=== PATIENT | male | born 1940 | race Caucasian/White ===

== ENCOUNTER → 2016-06-29 | Outpatient (CLI) | payer MEDICARE ==
[2016-06-29 08:43] LABS: Appearance,Urine Clear (Clear); Bilirubin,Urine Negative (Negative); Glucose,Urine (UA) Negative (Negative); Ketones,Urine Negative (Negative); Leukocyte Esterase,Urine Negative (Negative); Nitrite,Urine Negative (Negative); Protein,Urine Trace (Negative); Specific Gravity,Urine 1.019 (1.001-1.035); UA Billing (MACRO vs. MICRO) CHEM; Urobilinogen,Urine <2.0 mg/dL (<2.0)
[2016-06-29 11:21] LABS: Calcium 9.5 mg/dL (8.4-10.2)
[2016-06-29 11:56] LABS: Creatinine,Urine Random 174.3 mg/dL
== END | disposition home or self-care (01) ==
LOC: LABWHC1 08:12
PROVIDERS: ATTEND Psychiatry & Neurology Neurology
DX: N39.0 Urinary tract infection, site not specified (principal); R31.9 Hematuria, unspecified
CPT/HCPCS: 36415; 80048; 80061; 81003; 82550; 82570; 82607; 83735; 84156; 84439; 84443; 84481; 86780; 87077; 87086; 87186

== ENCOUNTER → 2016-07-09 | Outpatient (CLI) | payer MEDICARE ==
--- NOTE | 2016-07-09 12:11 | CT ---
EXAMINATION TYPE: CT brain wo con DATE OF EXAM: 07/09/2016 12:06 PM COMPARISON: NONE INDICATION: memory loss DLP: 1010.8 mGycm, Automated exposure control for dose reduction was used. CONTRAST: MRI brain 12/16/2009 CT of the brain is performed utilizing 3 mm thick sections through the posterior fossa and 3 mm thick sections through the remaining calvarium. Study is performed within 24 hours of arrival to the hosp [facility]. No abnormal hyperdensity is present to suggest an acute intracranial hemorrhage. No mass lesion is evident. No acute infarcts are evident. There is mild periventricular white matter hypodensity, likely on the basis of chronic white matter ischemic changes. Ventricles and sulci are mildly prominent for the patient age. Minimal mucosal thickening is within the inferior right maxillary sinus. Remaining paranasal sinuses and mastoid air cells are clear. IMPRESSIONS: 1. Atrophy with periventricular white matter ischemic type changes
== END ==
LOC: RADCTMAIN 11:37
PROVIDERS: ATTEND Psychiatry & Neurology Neurology
DX: G31.9 Degenerative disease of nervous system, unspecified (principal)
CPT/HCPCS: 70450

== ENCOUNTER → 2016-10-28 | Outpatient (CLI) | payer MEDICARE ==
[2016-10-28 08:29] LABS: Anion Gap 8 mmol/L; Blood Urea Nitrogen 21 mg/dL (9-20); Calcium 9.4 mg/dL (8.4-10.2); Carbon Dioxide 26 mmol/L (22-30); Chloride 108 mmol/L (98-107); Creatine Kinase 60 U/L (55-170); Glucose 84 mg/dL (74-99); Magnesium 1.9 mg/dL (1.6-2.3); Non-African American GFR(MDRD) 58 (>60 ml/min/1.73 sqM); Phosphorous 3.5 mg/dL (2.5-4.5); Potassium 4.7 mmol/L (3.5-5.1); Sodium 142 mmol/L (137-145); Uric Acid 6.6 mg/dL (3.5-8.5)
--- NOTE | 2016-10-28 09:26 | XR ---
EXAMINATION TYPE: XR lumbosacral spine min 4V DATE OF EXAM ORDERED: 10/28/2016 HISTORY: M51.36,M51.34 Disc disease. COMPARISON: None. FINDINGS: There is a gentle dextroscoliosis. Vertebral body height and alignment are maintained. There is no spondylolysis or spondylolisthesis. T he disc spaces are reasonably well-maintained. There is mild hypertrophic spondylosis at L2-3, L3-4 a nd L4-5. The facets are unremarkable. The pedicles are intact. IMPRESSION: 1. NO ACUTE OSSEOUS LESION. 2. MILD DEGENERATIVE CHANGE.
--- NOTE | 2016-10-28 09:39 | XR ---
EXAMINATION TYPE: XR thoracic spine complete DATE OF EXAM: 10/28/2016 COMPARISON: NONE HISTORY: Disc disease low back pain TECHNIQUE: 3 view thoracic spine FINDINGS: Mild degenerative disc changes within the mid thoracic spine. Alignment is normal. Spondylo sis is present. There are 12 thoracic type vertebral bodies. The pedicles are intact. IMPRESSION: 1. Mild degenerative changes mid thoracic spine.
== END | disposition home or self-care (01) ==
LOC: LABWHC1 07:58
PROVIDERS: ATTEND Internal Medicine
DX: M47.816 Spondylosis without myelopathy or radiculopathy, lumbar region (principal); M47.814 Spondylosis without myelopathy or radiculopathy, thoracic region; R25.2 Cramp and spasm
CPT/HCPCS: 36415; 72072; 72110; 80048; 82550; 83735; 83970; 84100; 84550

== ENCOUNTER → 2016-11-05 | Outpatient (CLI) | payer MEDICARE ==
[2016-11-05 13:30] LABS: % Iron Saturation 24.7 % (20-50)
== END | disposition home or self-care (01) ==
LOC: LABWHC1 12:27
PROVIDERS: ATTEND Internal Medicine
DX: D50.9 Iron deficiency anemia, unspecified (principal); E60 Dietary zinc deficiency
CPT/HCPCS: 36415; 82728; 83540; 83550; 84630

== ENCOUNTER → 2016-12-30 | Outpatient (CLI) | payer MEDICARE ==
[2016-12-30 09:06] LABS: ALT 37 U/L (21-72); AST 25 U/L (17-59); Cholesterol 207 mg/dL (<200); HDL Cholesterol 60 mg/dL (40-60)
== END | disposition home or self-care (01) ==
LOC: LABWHC1 07:55
PROVIDERS: ATTEND Internal Medicine Cardiovascular Disease
DX: E78.2 Mixed hyperlipidemia (principal)
CPT/HCPCS: 36415; 80061; 84450; 84460

== ENCOUNTER → 2017-03-23 | Outpatient (CLI) | payer MEDICARE ==
[2017-03-23 09:02] LABS: Basophils # (A) 0.1 k/uL (0-0.2); Basophils % (A) 1 %; CH 30.9; CHCM 32.8; Eosinophils # (A) 0.1 k/uL (0-0.7); Eosinophils % (A) 1 %; HCT 41.4 % (39.0-53.0); HDW 2.36; HGB 13.4 gm/dL (13.0-17.5); Luc # (Auto) 0.15; Luc % (Auto) 2; Lymphocytes # (A) 1.7 k/uL (1.0-4.8); Lymphocytes % (A) 19 %; MCH 30.7 pg (25.0-35.0); MCHC 32.4 g/dL (31.0-37.0); MCV 94.8 fL (80.0-100.0); Mean Platelet Volume 6.6; Monocytes # (A) 0.7 k/uL (0-1.0); Monocytes % (A) 7 %; Neutrophils # (A) 6.6 k/uL (1.3-7.7); Neutrophils % (A) 71 %; RBC 4.36 m/uL (4.30-5.90); RDW 14.3 % (11.5-15.5); WBC 9.3 k/uL (3.8-10.6); WBC (Perox) 9.47
[2017-03-23 11:45] LABS: ALT 45 U/L (21-72); AST 33 U/L (17-59); Alkaline Phosphatase 90 U/L (38-126); Anion Gap 7 mmol/L; Blood Urea Nitrogen 20 mg/dL (9-20); C Reactive Protein <5.0 mg/L (<10.0); Calcium 9.6 mg/dL (8.4-10.2); Carbon Dioxide 27 mmol/L (22-30); Chloride 105 mmol/L (98-107); Cholesterol 192 mg/dL (<200); Creatine Kinase 70 U/L (55-170); Glucose 80 mg/dL (74-99); HDL Cholesterol 54 mg/dL (40-60); Non-African American GFR(MDRD) 53 (>60 ml/min/1.73 sqM); Potassium 4.7 mmol/L (3.5-5.1); Sodium 139 mmol/L (137-145); Total Bilirubin 0.7 mg/dL (0.2-1.3); Total Protein 6.5 g/dL (6.3-8.2)
[2017-03-23 12:13] LABS: Prostate Specific Antigen 0.49 ng/mL (0.00-4.00)
[2017-03-23 12:28] LABS: Erythrocyte Sedimentation Rate 12 mm/hr (0-15)
== END | disposition home or self-care (01) ==
LOC: LABWHC1 07:33
PROVIDERS: ATTEND Internal Medicine
DX: Z00.00 Encounter for general adult medical examination without abnormal findings (principal); E78.5 Hyperlipidemia, unspecified; E11.65 Type 2 diabetes mellitus with hyperglycemia; I12.9 Hypertensive chronic kidney disease with stage 1 through stage 4 chronic kidney disease, or unspecified chronic kidney disease; E11.22 Type 2 diabetes mellitus with diabetic chronic kidney disease; N18.3 Chronic kidney disease, stage 3 (moderate); N40.0 Benign prostatic hyperplasia without lower urinary tract symptoms; Z85.46 Personal history of malignant neoplasm of prostate
CPT/HCPCS: 36415; 80053; 80061; 82550; 83036; 84153; 84630; 85025; 85652; 86140

== ENCOUNTER 2017-05-31 09:44 | Day surgery (SDC) | payer MEDICARE ==
[2017-05-27 08:55] VITALS: BMI 25.1
[~2017-05-31 09:44] MED LIST: LACTATED RINGERS 1,000 ML IV SCH; LIDOCAINE 1% 20 ML VIAL (10MG/ML) FOR IV START INTRADERMA PRN
[2017-05-31 12:04] VITALS: RESP 18; TEMP 97.9
[2017-05-31 12:05] LABS: Glucose,Whole Blood 77 mg/dL (75-99)
[2017-05-31] MEDS ORDERED: LIDOCAINE 1% INJ 10MG/ML (20 ML MDV) ONE (12:49)
[2017-05-31] MEDS ORDERED: PROPOFOL 10 MG/ML 20 ML VIAL IV ONE (12:49)
[2017-05-31 13:42] VITALS: BP 170/84; PULSE 68
--- NOTE | 2017-06-05 18:15 | P.PCN ---
Date of Procedure: 05/31/17 Procedure(s) Performed: Procedure: Esophagogastroduodenoscopy and biopsy. Preoperative diagnosis: Gastroesophageal reflux and dysphagia. Postoperative diagnosis: 1. Very small sliding hiatal hernia with no obvious esophagitis or complicated reflux disease. 2. Mild antral gastritis. 3. Multiple biopsies obtained from the duodenum, antrum and esophagus. Preparation sedation: Was provided by anesthesia. Brief clinical history: The patient is a 77-year-old male who was evaluated in the office earlier this month for reflux symptoms requiring PPI and H2 blockers. He has been experiencing intermittent dysphagia. This evaluation is to assess for the degree of esophagitis and rule out complicated reflux disease. Procedure: With the patient on his left lateral decubitus position and after informed consent and adequate sedation, I passed the Olympus-GIF 160 video upper endoscope through the cricopharyngeus down the esophagus. GE junction was around 41 cm from the incisors and there was a very small sliding hiatal hernia. The esophagus did not show any erosions, ulcers, strictures or Cadet' s esophagus. The endoscope was then passed into the stomach which was insufflated with air and inspected in detail including the retroflex view in the cardia. There was some mottling and erythema in the antrum consistent with mild gastritis but no ulcers or erosions. Pyloric channel did not show any ulcers. Duodenal bulb, post bulbar area and descending duodenum was essentially within normal limits. Because of his symptoms, I obtained biopsies from the duodenum, antrum and esophagus then the endoscope was withdrawn. The patient tolerated the procedure well. Plan: The patient was reassured. Will await biopsy results. He will follow up in the office as planned and further plans will be made based on his course and biopsy results. We will keep you updated on his progress.
== END 2017-05-31 14:03 | disposition home or self-care (01) ==
LOC: ORWHC2ENDO 09:44
DX: K21.9 Gastro-esophageal reflux disease without esophagitis (principal); K29.70 Gastritis, unspecified, without bleeding; K44.9 Diaphragmatic hernia without obstruction or gangrene; I25.10 Atherosclerotic heart disease of native coronary artery without angina pectoris; I10 Essential (primary) hypertension; Z95.5 Presence of coronary angioplasty implant and graft; J44.9 Chronic obstructive pulmonary disease, unspecified; E78.5 Hyperlipidemia, unspecified; Z79.52 Long term (current) use of systemic steroids; Z79.899 Other long term (current) drug therapy; Z88.1 Allergy status to other antibiotic agents
CPT/HCPCS: 88305; 88342; 43239; J2001; J2704

== ENCOUNTER 2017-08-03 12:42 | Inpatient (IN) | payer MEDICARE ==
[2017-08-03] MEDS ORDERED: SODIUM CHLORIDE 0.9% 1,000 ML IV ONE ×2 (13:19→16:49)
[2017-08-03] MEDS ORDERED: RX INFO: IV CONTRAST WAS GIVEN 1 EACH MISC MISCELLANE PRN (13:19)
[2017-08-03] MEDS ORDERED: ACETAMINOPHEN TAB 500 MG TAB PO STA (13:20)
[2017-08-03] MEDS ORDERED: IBUPROFEN 600 MG TAB PO STA (13:20)
--- NOTE | 2017-08-03 13:22 | ED ---
General Adult HPI - General Chief complaint: Syncope Stated complaint: Abd Pain/Near Syncope Time Seen by Provider: 08/03/17 12:45 Source: patient, EMS, RN notes reviewed Mode of arrival: EMS Limitations: no limitations - History of Present Illness Initial comments: This is a 77-year-old male who presents emergency Department complaining of mid abdominal pain starting at 6:00 this morning he states since then he's vomited and had diarrhea patient states she become very lightheaded and falling twice and passed out once. Patient denies any chest pain palpitations difficulty breathing or shortness of breath. Patient states his abdominal pain comes and goes and it seems to move all over his abdomen it was at the left lower quadrant now is at the right upper quadrant. Patient states she's also had a cholecystectomy. Patient denies a fever but states he was having the chills earlier. Patient denies any dysuria hematuria urinary frequency. - Related Data Home Medications Medication Instructions Recorded Confirmed Aclidinium [place] [Tudorza 1 puff PO BID PRN 05/27/17 08/03/17 Pressair] Albuterol Inhaler [Ventolin Hfa 1 - 2 puff INHALATION Q6HR PRN 05/27/17 08/03/17 Inhaler] Aspirin [Adult Low Dose Aspirin EC] 81 mg PO DAILY@1200 05/27/17 08/03/17 Atorvastatin [Lipitor] 80 mg PO DAILY@1200 05/27/17 08/03/17 Donepezil HCl [Aricept] 5 mg PO DAILY@1200 05/27/17 08/03/17 Fluticasone/Salmeterol [Advair 1 inhalation PO BID PRN 05/27/17 08/03/17 250-50 Diskus] Ipratropium/Albuterol Sulfate 1 puff INHALATION QID PRN 05/27/17 08/03/17 [Combivent Respimat Inhaler] Irbesartan [Avapro] 150 mg PO DAILY@119905/27/17 08/03/17 Metoprolol Tartrate 25 mg PO BID-W/MEALS 05/27/17 08/03/17 Montelukast [Singulair] 10 mg PO HS 05/27/17 08/03/17 Multivitamins, Thera [Multivitamin 1 tab PO W/SUPPER 05/27/17 08/03/17 (formulary)] Theophylline 12 Hour [Silvio-Dur] 300 mg PO BID 05/27/17 08/03/17 predniSONE 5 mg PO BID-W/MEALS 05/27/17 08/03/17 Pantoprazole Sodium [Pantoprazole 40 mg PO BID 08/03/17 08/03/17 Sodium] Allergies Allergy/AdvReac Type Severity Reaction Status Date / Time ciprofloxacin [From Cipro] Allergy Rash/Hives Verified 08/03/17 13:49 Review of Systems ROS Statement: Those systems with pertinent positive or pertinent negative responses have been documented in the HPI. ROS Other: All systems not noted in ROS Statement are negative. Past Medical History Past Medical History: Coronary Artery Disease (CAD), COPD, GERD/Reflux, Hyperlipidemia, Hypertension Additional Past Medical History / Comment(s): dysphagia, states some memory loss History of Any Multi-Drug Resistant Organisms: None Reported Past Surgical History: Cholecystectomy, Heart Catheterization With Stent Additional Past Surgical History / Comment(s): corbin cataracts, EGD Past Anesthesia/Blood Transfusion Reactions: No Reported Reaction Date of Last Stent Placement:: unknown Past Psychological History: No Psychological Hx Reported Smoking Status: Never smoker Past Alcohol Use History: None Reported Past Drug Use History: None Reported - Past Family History Mother Family Medical History: Cancer Father Family Medical History: Cancer General Exam Limitations: no limitations Course Vital Signs 08/03/17 08/03/17 08/03/17 12:46 14:02 14:31 Temperature 100.7 F H Pulse Rate 114 H 114 H Pulse Rate [ 130 H Left Standing Pulse Oximetery ] Pulse Rate [ 122 H Sitting Pulse Oximetery] Pulse Rate [ 115 H Supine Pulse Oximetery] Respiratory 18 18 Rate Blood Pressure 154/70 129/59 Blood Pressure 143/63 [Right Arm Sitting] Blood Pressure 128/71 [Right Arm Standing] Blood Pressure 142/59 [Right Arm Supine] O2 Sat by Pulse 98 98 Oximetry 08/03/17 08/03/17 15:34 16:35 Temperature Pulse Rate 108 H 114 H Pulse Rate [ Left Standing Pulse Oximetery ] Pulse Rate [ Sitting Pulse Oximetery] Pulse Rate [ Supine Pulse Oximetery] Respiratory 19 19 Rate Blood Pressure 115/67 123/60 Blood Pressure [Right Arm Sitting] Blood Pressure [Right Arm Standing] Blood Pressure [Right Arm Supine] O2 Sat by Pulse 98 100 Oximetry Medical Decision Making - Medical Decision Making EKG shows sinus tachycardia at 111 bpm with occasional PVC TX interval is 170 QRS 72 QT interval 308 QTC is 08/12/2017. Patient's EKG shows no ST segment elevation or depression or T wave abnormalities are noted Patient's CAT scan shows some fluid distended small bowel large bowels consistent with diarrhea which the patient has. Patient's lipase is extremely high looks like the patient has pancreatitis. We try to get a sample of stool for culture it look for C. diff that is still pending but we'll admit the patient and obtained on the floor. I spoke with Dr. Griffin and he agreed to admit the patient I wrote admitting orders consult to Dr. Guzman. - Lab Data Result diagrams: 08/03/17 14:48 08/03/17 14:48 Lab Results 08/03/17 08/03/17 08/03/17 Range/Units 13:31 14:48 14:48 WBC 10.0 (3.8-10.6) k/uL RBC 4.65 (4.30-5.90) m/uL Hgb 14.5 (13.0-17.5) gm/dL Hct 43.3 (39.0-53.0) % MCV 93.2 (80.0-100.0) fL MCH 31.2 (25.0-35.0) pg MCHC 33.5 (31.0-37.0) g/dL RDW 12.8 (11.5-15.5) % Plt Count 252 (150-450) k/uL Neutrophils % 88 % Lymphocytes % 6 % Monocytes % 5 % Eosinophils % 1 % Basophils % 0 % Neutrophils # 8.7 H (1.3-7.7) k/uL Lymphocytes # 0.6 L (1.0-4.8) k/uL Monocytes # 0.5 (0-1.0) k/uL Eosinophils # 0.1 (0-0.7) k/uL Basophils # 0.0 (0-0.2) k/uL Sodium 143 (137-145) mmol/L Potassium 4.4 (3.5-5.1) mmol/L Chloride 107 (98-107) mmol/L Carbon Dioxide 21 L (22-30) mmol/L Anion Gap 15 mmol/L BUN 28 H (9-20) mg/dL Creatinine 1.32 H (0.66-1.25) mg/dL Est GFR (CKD-EPI)AfAm 59 (>60 ml/min/1.73 sqM) Est GFR (CKD-EPI)NonAf 51 (>60 ml/min/1.73 sqM) Glucose 80 (74-99) mg/dL Plasma Lactic Acid Lawson 2.6 H* (0.7-2.0) mmol/L Calcium 9.2 (8.4-10.2) mg/dL Total Bilirubin 0.8 (0.2-1.3) mg/dL AST 34 (17-59) U/L ALT 41 (21-72) U/L Alkaline Phosphatase 98 (38-126) U/L Total Creatine Kinase (55-170) U/L CK-MB (CK-2) (0.0-2.4) ng/mL CK-MB (CK-2) Rel Index Troponin I (0.000-0.034) ng/mL Total Protein 6.3 (6.3-8.2) g/dL Albumin 3.7 (3.5-5.0) g/dL Amylase 178 H (30-110) U/L Lipase 1130 H (23-300) U/L 08/03/17 Range/Units 14:48 WBC (3.8-10.6) k/uL RBC (4.30-5.90) m/uL Hgb (13.0-17.5) gm/dL Hct (39.0-53.0) % MCV (80.0-100.0) fL MCH (25.0-35.0) pg MCHC (31.0-37.0) g/dL RDW (11.5-15.5) % Plt Count (150-450) k/uL Neutrophils % % Lymphocytes % % Monocytes % % Eosinophils % % Basophils % % Neutrophils # (1.3-7.7) k/uL Lymphocytes # (1.0-4.8) k/uL Monocytes # (0-1.0) k/uL Eosinophils # (0-0.7) k/uL Basophils # (0-0.2) k/uL Sodium (137-145) mmol/L Potassium (3.5-5.1) mmol/L Chloride (98-107) mmol/L Carbon Dioxide (22-30) mmol/L Anion Gap mmol/L BUN (9-20) mg/dL Creatinine (0.66-1.25) mg/dL Est GFR (CKD-EPI)AfAm (>60 ml/min/1.73 sqM) Est GFR (CKD-EPI)NonAf (>60 ml/min/1.73 sqM) Glucose (74-99) mg/dL Plasma Lactic Acid Lawson (0.7-2.0) mmol/L Calcium (8.4-10.2) mg/dL Total Bilirubin (0.2-1.3) mg/dL AST (17-59) U/L ALT (21-72) U/L Alkaline Phosphatase (38-126) U/L Total Creatine Kinase 97 (55-170) U/L CK-MB (CK-2) 1.9 (0.0-2.4) ng/mL CK-MB (CK-2) Rel Index 2.0 Troponin I <0.012 (0.000-0.034) ng/mL Total Protein (6.3-8.2) g/dL Albumin (3.5-5.0) g/dL Amylase (30-110) U/L Lipase (23-300) U/L Disposition Clinical Impression: Acute diarrhea, Orthostatic syncope, Pancreatitis, Acute vomiting Disposition: ADMITTED IP TO THIS HOSP Referrals: Kevin Griffin MD [Primary Care Provider] - 1-2 days Time of Disposition: 16:47
[2017-08-03 15:08] LABS: Basophils % (A) 0 %; Eosinophils # (A) 0.1 k/uL (0-0.7); Eosinophils % (A) 1 %; HCT 43.3 % (39.0-53.0); HGB 14.5 gm/dL (13.0-17.5); Lymphocytes # (A) 0.6 k/uL (1.0-4.8); Lymphocytes % (A) 6 %; MCH 31.2 pg (25.0-35.0); MCHC 33.5 g/dL (31.0-37.0); MCV 93.2 fL (80.0-100.0); Mean Platelet Volume 6.7; Monocytes # (A) 0.5 k/uL (0-1.0); Monocytes % (A) 5 %; Neutrophils # (A) 8.7 k/uL (1.3-7.7); Neutrophils % (A) 88 %; Platelet Count 252 k/uL (150-450); RBC 4.65 m/uL (4.30-5.90); RDW 12.8 % (11.5-15.5)
[2017-08-03 15:14] LABS: Albumin 3.7 g/dL (3.5-5.0); Calcium 9.2 mg/dL (8.4-10.2); Potassium 4.4 mmol/L (3.5-5.1); Total Bilirubin 0.8 mg/dL (0.2-1.3); Total Protein 6.3 g/dL (6.3-8.2)
[2017-08-03 15:30] LABS: Creatine Kinase 97 U/L (55-170)
[2017-08-03 15:41] LABS: Creatine Kinase MB 1.9 ng/mL (0.0-2.4); Troponin I <0.012 ng/mL (0.000-0.034)
--- NOTE | 2017-08-03 16:14 | CT ---
EXAMINATION TYPE: CT abdomen pelvis w con DATE OF EXAM: 08/03/2017 COMPARISON: NONE HISTORY: Pelvic pain, right upper abdominal pain CT DLP: 1412 mGycm CONTRAST: CT scan of the abdomen and pelvis is performed without Oral Contrast and with IV Contrast, patient in jected with 80 mL of Isovue 370. FINDINGS: LUNG BASES-: No visible nodule. No infiltrate. LIVER/GB: Cholecystectomy clips are in place. Mild intra and extrahepatic biliary ductal dilatation . Calcified granulomas within the liver. No space occupying hepatic lesion. Biliary tree is of fatimah l caliber. PANCREAS: No inflammation. No distinct mass. SPLEEN: No splenic enlargement. No lesion seen. Calcified splenic granulomas. ADRENALS: No nodule. No thickening. KIDNEYS/BLADDER: No hydronephrosis. No nephrolithiasis. Simple cyst midpole left kidney. Urinary bl adder grossly unremarkable. BOWEL: Normal appendix. There is fluid distended small and large bowel. Correlate for enterocolitis a nd diarrhea. Sigmoid diverticulosis without diverticulitis. No free air or abscess. GENITAL ORGANS: Prostate clips are in place. LYMPH NODES: No greater than 1cm abdominal or pelvic lymph nodes are appreciated. AORTA: No significant abnormality. OSSEOUS STRUCTURES: No significant abnormality is seen. OTHER: No significant additional abnormality is seen. IMPRESSION: 1. There is fluid distended small and large bowel. Correlate for enterocolitis and diarrhea.
[2017-08-03] MEDS ORDERED: ONDANSETRON 4 MG/2 ML VIAL IVP PRN (16:50)
[2017-08-03] MEDS ORDERED: IPRATROPIUM 0.5 MG/2.5 ML NEBU INHALATION PRN (17:43)
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
[2017-08-03] MEDS ORDERED: PIPERACILLIN-TAZOBACTAM 3.375 GM in DEXTROSE/WATER 1 50ML.BAG IVPB SCH (19:00)
[2017-08-03] MEDS: metroNIDAZOLE-NS PMX 500 MG in SALINE 1 100ML.BAG IVPB SCH ×2 (19:08→23:37)
--- NOTE | 2017-08-03 19:54 | XR ---
EXAMINATION TYPE: XR chest 2V DATE OF EXAM: 08/03/2017 COMPARISON: 03/17/2011 HISTORY: Dizziness asthma TECHNIQUE: Frontal and lateral views of the chest are obtained. FINDINGS: Heart and mediastinum are normal. Lungs are clear. Diaphragm is normal. Bony thorax is int act. IMPRESSION: Normal chest. No change.
[2017-08-03] MEDS: SYMBICORT 80-4.5 MCG INHALER INHALATION SCH (21:08)
[2017-08-03] MEDS: IPRATROPIUM-ALBUTEROL 3 ML NEB INHALATION PRN (21:08)
[2017-08-04] MEDS: ARTIFICIAL TEARS-HYPROMELLOSE DROPS 15 ML BTL LEFT EYE PRN ×2 (04:33→07:59)
[2017-08-04 04:59] LABS: Appearance,Urine Clear (Clear); Bilirubin,Urine Negative (Negative); Blood,Urine Negative (Negative); Color,Urine Yellow; Glucose,Urine (UA) Negative (Negative); Ketones,Urine 1+ (Negative); Leukocyte Esterase,Urine Negative (Negative); Mucus,Urine Rare /hpf; Nitrite,Urine Negative (Negative); PH, Urine 5.5 (5.0-8.0); Protein,Urine 1+ (Negative); RBC,Urine 2 /hpf (0-5); Squamous Epithelial Cell,Urine <1 /hpf (0-4); Urobilinogen,Urine <2.0 mg/dL (<2.0); WBC,Urine 1 /hpf (0-5)
[2017-08-04 05:00] LABS: Specific Gravity,Urine >1.050 (1.001-1.035)
[2017-08-04] MEDS: metroNIDAZOLE-NS PMX 500 MG in SALINE 1 100ML.BAG IVPB SCH ×3 (06:13→18:18)
[2017-08-04] MEDS: MORPHINE SULFATE/PF 10MG/10ML VL IVP PRN (07:55)
[2017-08-04] MEDS: METOPROLOL TARTRATE 25 MG TAB PO SCH ×2 (08:02→16:54)
[2017-08-04] MEDS: PANTOPRAZOLE 40 MG/10 ML VIAL IVP SCH (08:02)
[2017-08-04] MEDS: IPRATROPIUM-ALBUTEROL 3 ML NEB INHALATION PRN ×4 (08:47→20:48)
[2017-08-04] MEDS: SYMBICORT 80-4.5 MCG INHALER INHALATION SCH ×2 (08:47→20:48)
[2017-08-04 09:14] LABS: Basophils % (A) 1 %; Eosinophils # (A) 0.1 k/uL (0-0.7); Eosinophils % (A) 2 %; HCT 40.7 % (39.0-53.0); HGB 13.9 gm/dL (13.0-17.5); Lymphocytes # (A) 0.9 k/uL (1.0-4.8); Lymphocytes % (A) 14 %; MCH 31.2 pg (25.0-35.0); MCHC 34.2 g/dL (31.0-37.0); MCV 91.5 fL (80.0-100.0); Mean Platelet Volume 6.2; Monocytes # (A) 0.5 k/uL (0-1.0); Monocytes % (A) 8 %; Neutrophils # (A) 4.5 k/uL (1.3-7.7); Neutrophils % (A) 73 %; Platelet Count 276 k/uL (150-450); RBC 4.45 m/uL (4.30-5.90); RDW 12.8 % (11.5-15.5); WBC 6.1 k/uL (3.8-10.6)
[2017-08-04 09:40] LABS: Albumin 2.9 g/dL (3.5-5.0); Calcium 8.7 mg/dL (8.4-10.2); Potassium 4.7 mmol/L (3.5-5.1); Total Bilirubin 0.6 mg/dL (0.2-1.3); Total Protein 5.3 g/dL (6.3-8.2)
--- NOTE | 2017-08-04 10:56 | P.CONS ---
History of Present Illness - Reason for Consult Consult date: 08/04/17 Pancreatitis Requesting physician: Kevin Griffin - History of Present Illness 77-year-old male patient of Drs. Griffin and Megan with a past medical history of CAD PCI stent, COPD, hypertension, hyperlipidemia, chronic dysphagia, GERD, cholecystectomy, memory loss. Admitted with reports of mid to right upper quadrant abdominal pain that started earlier this morning with nonbloody emesis and diarrhea lightheadedness syncope. Family at bedside assisting with history taking. Apparently patient's been treated with broad-spectrum antibiotics in the outpatient setting for months now for intermittent diarrhea. He's had chronic upper abdominal pain for several weeks. He underwent EGD evaluation in May regarding his complaints with findings of a small hiatal hernia and diffuse gastritis. No evidence of peptic ulcer disease. Last colonoscopy screening several years ago. Consult requested for pancreatitis. CT abdomen and pelvis reported fluid distended small and large bowel correlation enterocolitis diarrhea. Hemoglobin 14.5. White count 10. Sodium 143. Potassium 4.4. Lactic acid 2.6 with hydration 1.7. LFTs within normal limits. Lipase 1130. Amylase 178. BUN 28. Creatinine 1.3. Denies hematemesis and acute melena fever or chills however T-max is 100.7. Review of Systems Constitutional: Denies fever, chills, sweats, weight gain, or loss. Memory impairment. HEENT: Negative for migraines, blurred vision or loss, earaches, drainage, tinnitus, oral mucosal lesions, dysphagia, or odynophagia. Cardiac: CAD. Hypertension. Hyperlipidemia. Negative for chest pain, arrhythmias, or palpitation. Respiratory: COPD. Negative for shortness of breath, hemoptysis, cough, or sputum production. Gastrointestinal: See HPI for pertinent findings. Genitourinary: Negative for hematuria, urgency, frequency, polyuria, dysuria, or penile discharge. Musculoskeletal: Negative for muscle aches, swelling, arthritis, and arthralgias. Neurologic: Negative for stroke or TIA. Endocrine: Negative for thyroid problems. Skin: Negative for rash or itching. Psychiatric: Negative history for depression and anxiety Past Medical History Past Medical History: Coronary Artery Disease (CAD), COPD, GERD/Reflux, Hyperlipidemia, Hypertension Additional Past Medical History / Comment(s): dysphagia, states some memory loss History of Any Multi-Drug Resistant Organisms: None Reported Past Surgical History: Cholecystectomy, Heart Catheterization With Stent Additional Past Surgical History / Comment(s): corbin cataracts, EGD Past Anesthesia/Blood Transfusion Reactions: No Reported Reaction Date of Last Stent Placement:: unknown Past Psychological History: No Psychological Hx Reported Additional Psychological History / Comment(s): memory loss Smoking Status: Never smoker Past Alcohol Use History: None Reported Past Drug Use History: None Reported - Past Family History Mother Family Medical History: Cancer Father Family Medical History: Cancer Medications and Allergies Home Medications Medication Instructions Recorded Confirmed Type Aclidinium [place] [Tudorza 1 puff PO BID PRN 05/27/17 08/03/17 History Pressair] Albuterol Inhaler [Ventolin Hfa 1 - 2 puff INHALATION Q6HR PRN 05/27/17 History Inhaler] Aspirin [Adult Low Dose Aspirin EC] 81 mg PO DAILY@1200 05/27/17 08/03/17 History Atorvastatin [Lipitor] 80 mg PO DAILY@1200 05/27/17 08/03/17 History Donepezil HCl [Aricept] 5 mg PO DAILY@1200 05/27/17 08/03/17 History Fluticasone/Salmeterol [Advair 1 inhalation PO BID PRN 05/27/17 08/03/17 History 250-50 Diskus] Ipratropium/Albuterol Sulfate 1 puff INHALATION QID PRN 05/27/17 08/03/17 History [Combivent Respimat Inhaler] Irbesartan [Avapro] 150 mg PO DAILY@1200 05/27/17 08/03/17 History Metoprolol Tartrate 25 mg PO BID-W/MEALS 05/27/17 08/03/17 History Montelukast [Singulair] 10 mg PO HS 05/27/17 08/03/17 History Multivitamins, Thera [Multivitamin 1 tab PO W/SUPPER 05/27/17 08/03/17 History (formulary)] Theophylline 12 Hour [Silvio-Dur] 300 mg PO BID 05/27/17 08/03/17 History predniSONE 5 mg PO BID-W/MEALS 05/27/17 08/03/17 History Pantoprazole Sodium [Pantoprazole 40 mg PO BID 03/28/18 03/28/18 History Sodium] Allergies Allergy/AdvReac Type Severity Reaction Status Date / Time ciprofloxacin [From Cipro] Allergy Rash/Hives Verified 08/03/17 13:49 Physical Exam Vitals: Vital Signs Temp Pulse Pulse Pulse Pulse Pulse Resp 08/04/17 06:28 97.8 F 101 H 20 08/03/17 23:45 98 F 108 H 20 08/03/17 21:25 102 H 08/03/17 21:08 100 08/03/17 18:25 96.8 F L 100 16 08/03/17 17:45 99.4 F 107 H 18 08/03/17 16:35 114 H 19 08/03/17 15:34 108 H 19 08/03/17 14:31 114 H 18 08/03/17 14:02 130 H 122 H 115 H 08/03/17 12:46 100.7 F H 114 H 18 BP BP BP BP Pulse Ox 08/04/17 06:28 145/77 99 08/03/17 23:45 117/58 97 08/03/17 21:25 08/03/17 21:08 08/03/17 18:25 128/63 99 08/03/17 17:45 133/57 95 08/03/17 16:35 123/60 100 08/03/17 15:34 115/67 98 08/03/17 14:31 129/59 98 08/03/17 14:02 143/63 128/71 142/59 08/03/17 12:46 154/70 98 Intake and Output 08/03/17 08/04/17 08/04/17 22:59 06:59 14:59 Intake Total 0 0 Balance 0 0 Intake: Oral 0 0 Other: # Voids 1 1 General appearance: The patient is alert, oriented, in no acute distress. HET: Head is normocephalic and atraumatic. Pupils are equal and reactive. Oropharynx is clear without lesions. Neck: Supple without lymphadenopathy. Trachea midline. Heart: S1 S2. Regular rate and rhythm. Lungs: No crackles or wheezes are heard. Abdomen: Soft, tenderness to the midepigastric right upper quadrant, nondistended with bowel sounds. No peritoneal signs. No palpable organomegaly or masses. Extremities: Normal skin color and turgor. No cyanosis, rash, ulceration, clubbing, or edema. Radial and pedal pulses are 2/4 bilaterally. Neurological: No focal deficits. Strength and sensation are grossly intact. Results CBC & Chem 7: 08/04/17 08:48 08/04/17 08:48 Labs: Abnormal Lab Results - Last 24 Hours (Table) 08/03/17 08/03/17 08/03/17 Range/Units 13:31 14:48 14:48 Neutrophils # 8.7 H (1.3-7.7) k/uL Lymphocytes # 0.6 L (1.0-4.8) k/uL Carbon Dioxide 21 L (22-30) mmol/L BUN 28 H (9-20) mg/dL Creatinine 1.32 H (0.66-1.25) mg/dL Plasma Lactic Acid Lawson 2.6 H* (0.7-2.0) mmol/L Amylase 178 H (30-110) U/L Lipase 1130 H (23-300) U/L Ur Specific [place] (1.001-1.035) Urine Protein (Negative) Urine Ketones (Negative) Urine Mucus (None) /hpf 08/04/17 Range/Units 04:30 Neutrophils # (1.3-7.7) k/uL Lymphocytes # (1.0-4.8) k/uL Carbon Dioxide (22-30) mmol/L BUN (9-20) mg/dL Creatinine (0.66-1.25) mg/dL Plasma Lactic Acid Lawson (0.7-2.0) mmol/L Amylase (30-110) U/L Lipase (23-300) U/L Ur Specific [place] >1.050 H (1.001-1.035) Urine Protein 1+ H (Negative) Urine Ketones 1+ H (Negative) Urine Mucus Rare H (None) /hpf CT scan - abdomen: report reviewed (Dr. Worthington) Assessment and Plan (1) Abdominal pain Narrative/Plan: Multifactorial secondary to acute pancreatitis of unclear etiology as well as possible enteritis possible colitis. Persistent intermittent diarrhea nonbloody for several weeks underlying collagenous colitis cannot be entirely excluded. Current Visit: Yes Status: Acute Code(s): R10.9 - UNSPECIFIED ABDOMINAL PAIN SNOMED Code(s): 68551281 (2) Diarrhea Current Visit: Yes Status: Acute Code(s): R19.7 - DIARRHEA, UNSPECIFIED SNOMED Code(s): 98342749 (3) Pancreatitis Current Visit: Yes Status: Acute Code(s): K85.90 - ACUTE PANCREATITIS WITHOUT NECROSIS OR INFECTION, UNSP SNOMED Code(s): 70373832 Plan: 1. Repeat pancreatic enzymes. Clear liquid diet as tolerated. GI prophylaxis Protonix 40 mg daily. Check triglycerides. Hold NSAIDs; could exacerbate diarrhea. 2. IV Hydration. Stool studies if diarrhea persists. Colonoscopy was discussed and contingent on clinical course. Thank you for this kind referral and the opportunity to participate in the care of your patient. This consultation was discussed with Dr. Worthington. The impression and plan of care have been directed as dictated.
--- NOTE | 2017-08-04 11:06 | XR ---
EXAMINATION TYPE: XR abdomen complete w decub DATE OF EXAM: 08/04/2017 COMPARISON: CT 08/03/2017 HISTORY: 77-year-old male with ileus and diverticulosis, right upper quadrant pain TECHNIQUE: 4 views FINDINGS: Lung bases are clear. Cholecystectomy clips. No evidence for free intraperitoneal air. Medication tablets are noted within the ascending colon. Small bowel loops are dilated measuring up to 4.4 cm on the left and 3.8 cm on the right. Scattered c olonic gas with a colonic air-fluid levels are also present. Calcified granulomas within the spleen. Contrast material collected within the bladder. Brachytherapy seeds in the region of the prostate. IMPRESSION: 1. Overall degree of small bowel dilatation show some increase from 08/03/2017 CT scan, now measuring up to 4.4 cm. Air-fluid levels remain within both small and large bowel and there is persistence of c olonic gas. Findings suggest continued ileus/enteritis rather than small bowel obstruction. Follow-up can be performed. 2. No free air.
--- NOTE | 2017-08-04 12:26 | P.PN ---
Subjective Progress Note Date: 08/04/17 Progress note date of service 08/04/2017. Dictation by Dr. Otoniel Ruelas M.D. [facility]. Patient seen today evaluated [id number]. Vital sign temperature 97.8 pulse rate ranging between 98 and 101. Respiratory rate 20/m nonlabored. Blood pressure 145/77. Mean blood pressure 99. Laboratory: White count 6.1 hemoglobin 13.9 with hematocrit 40.7 and platelet count 276. Electrolytes: Sodium 141 potassium 4.7 chloride 113 and carbon dioxide 15 with the underlying metabolic acidosis. He also has hypoglycemia with the blood sugar 67 his liver function test is normal with AST 35 and a LT 43 and total bili Lamberto 0.6 patient has history of laparoscopic cholecystectomy. His total CK is 97 and troponin on admission was less than 0.012 his total protein drop he is nothing by mouth and except for ice abscess is total protein is 5.3 and albumin is 2.9 and a serum, he lays was yesterday 178 today's 95 lipase was 1130 now to 27 to the normal range. His urine negative. [id number] examination patient is conscious alert oriented he has severe abdominal pain in the right upper quadrant and the cause the colon on the hepatic flexure as well as the ascending colon with the minimal palpation 10 over 10 pain is still on morphine for that controlling the pain he has also other quadrant pain however there is no significant related as the hepatic flexure. Patient did not have a bowel movement since yesterday morning that when he had the rash of diarrhea and frequent loose watery stools and that happened at that time 17 time as he said, we will add the triglyceride 2 his laboratory in the morning and the patient the don't to drink alcohol. And old smoke. And the current examination indicating that the bowel sound is diminished. His computed tomography scan did not show any sign of inflammation of the pancreas at this time as well as [place] drop off his Micronase and lipase does not indicate acute inflammation for over one night only and I am suspicious for: Infarction or obstruction with the diarrhea massive associated with dizziness symptomatic dehydration. Patient also today on the review of the lab found that he had progression on his chronic kidney disease as well as metabolic acidosis. 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 And advised that he should in the future eat in a sitting position 90 meanwhile patient currently and nothing by mouth except ice chips. And the chest x-ray was negative. Neck was supple no JVD no thyromegaly no lymph adenopathy. The chest was increased anteroposterior was mild hyperinflation with a history of asthma, COPD never smoked and associated with interstitial lung disease and he was on a steroid dependent was given by the pulmonary Dr. Gaspar. The abdomen severe tenderness on the: And in the hepatic flexure and the ascending colon as compared with the other sites of the abdomen. And with the underlying 10 over 10 that is considered as an acute abdomen and that we consulted Dr. Carmenza Painter the surgeon for evaluation and treatment. Patient currently has no bowel movement since admission with the associated ileus. Extremities no edema and positive pulses bilateral and symmetrical. Assessment: #1 gastroenteritis with nausea and vomiting and diarrhea. #2 acute C. difficile colitis with the history of treatment of upper respiratory tract infection with Ceftin. However patient did not have no bowel movement since admission and that happened at home a #3 history of connective tissue disease and Raynaud disease . 4 history of hypertension which is sofar controlled #5 metabolic acidosis etiology unclear # 5 renal computerization with decreased GFR and this provided that patient was on 150 mL an hour normal saline. Plan #1 consultation with the surgeon for acute abdomen and the underlying pain 10 over 10 on the right upper quadrant, hepatic flexure, ascending colon. Compared with the other quadrant. His abdominal x-ray series was done today I don't have results however looks like's ileus as well. His next number history of asthma no exacerbation sofar. We will wait for the recommendation and treatment of nephrology Dr. Pawel DERAS spoke with him today with with the patient in the room. I reviewed the note of the PA for gastroenterology, I am not sure that patient has pancreatitis. For the above reasons and YE he had pancreatitis and this also considered as question and what his his symptoms appear in the morning after he slept without any other reasoning for the acute pancreatitis. Acute abdomen is highly considered and will consult the surgeon Dr. Carmenza Painter for evaluation and treatment. Objective - Vital Signs Vital signs: Vital Signs Temp 97.8 F 08/04/17 06:28 Pulse 98 08/04/17 08:58 Resp 20 08/04/17 06:28 BP 145/77 08/04/17 06:28 Pulse Ox 99 08/04/17 06:28 Intake & Output 08/03/17 08/04/17 08/04/17 18:59 06:59 18:59 Intake Total 0 Balance 0 Weight 78.018 kg Intake: Oral 0 Other: # Voids 1 - Labs CBC & Chem 7: 08/04/17 08:48 08/04/17 08:48 Labs: Abnormal Lab Results - Last 24 Hours (Table) 08/03/17 08/03/17 08/03/17 Range/Units 13:31 14:48 14:48 Neutrophils # 8.7 H (1.3-7.7) k/uL Lymphocytes # 0.6 L (1.0-4.8) k/uL Chloride (98-107) mmol/L Carbon Dioxide 21 L (22-30) mmol/L BUN 28 H (9-20) mg/dL Creatinine 1.32 H (0.66-1.25) mg/dL Glucose (74-99) mg/dL Plasma Lactic Acid Lawson 2.6 H* (0.7-2.0) mmol/L Total Protein (6.3-8.2) g/dL Albumin (3.5-5.0) g/dL Amylase 178 H (30-110) U/L Lipase 1130 H (23-300) U/L Ur Specific [place] (1.001-1.035) Urine Protein (Negative) Urine Ketones (Negative) Urine Mucus (None) /hpf 08/04/17 08/04/17 08/04/17 Range/Units 04:30 08:48 08:48 Neutrophils # (1.3-7.7) k/uL Lymphocytes # 0.9 L (1.0-4.8) k/uL Chloride 113 H (98-107) mmol/L Carbon Dioxide 15 L (22-30) mmol/L BUN 30 H (9-20) mg/dL Creatinine 1.51 H (0.66-1.25) mg/dL Glucose 67 L (74-99) mg/dL Plasma Lactic Acid [place] (0.7-2.0) mmol/L Total Protein 5.3 L (6.3-8.2) g/dL Albumin 2.9 L (3.5-5.0) g/dL Amylase (30-110) U/L Lipase (23-300) U/L Ur Specific [place] >1.050 H (1.001-1.035) Urine Protein 1+ H (Negative) Urine Ketones 1+ H (Negative) Urine Mucus Rare H (None) /hpf Microbiology - Last 24 Hours (Table) 08/04/17 04:30 Urine Culture - Preliminary Urine,Clean Catch
--- NOTE | 2017-08-04 12:43 | P.NPCON ---
History of Present Illness - Reason for Consult acute renal failure - History of Present Illness Reason for consultation: Acute kidney injury on chronic kidney disease History of present illness: Patient is a 77-year-old male seen in consultation for acute kidney injury on chronic kidney disease. Patient has chronic kidney disease stage III with baseline creatinine in the range of 1.2-1.4 secondary to nephrosclerosis. His creatinine on admission was 1.32 and is up to 1.5 and today. Patient presented with abdominal pain which is worse in the right upper quadrant. He also had an episode of diarrhea and emesis prior to admission. He underwent CAT scan of the abdomen and pelvis with IV contrast on August 03 which revealed distended small and large bowel with concern for enterocolitis. His lipase was also elevated at 1130 and is down to 227 today. Patient denies history of alcohol use. His lactic acid was elevated at 2.6 for which she did receive IV hydration and is currently maintained on normal saline at 100 mL an hour. Lactic acid level is down to 1.2 today. His bicarb was 21 on admission and is 15 today. He is currently on clear liquid diet only. No further vomiting or diarrhea. Denies history of diabetes. He does admit to taking NSAIDs prior to admission due to a headache. Patient states he sustained a fall which prompted him to come to the hospital. Denies family history of renal disease. Hemodynamically stable. Vital signs are stable. General: The patient appeared well nourished and normally developed. HEENT: Head exam is unremarkable. Neck is without jugular venous distension. LUNGS: Lungs are clear to auscultation and percussion. Breath sounds decreased. HEART: Rate and Rhythm are regular. First and second heart sounds normal. No murmurs, rubs or gallops. ABDOMEN: Bowel sounds present. Right upper quadrant tenderness noted. EXTREMITITES: No clubbing, cyanosis, or edema. Past Medical History Past Medical History: Coronary Artery Disease (CAD), COPD, GERD/Reflux, Hyperlipidemia, Hypertension Additional Past Medical History / Comment(s): dysphagia, states some memory loss History of Any Multi-Drug Resistant Organisms: None Reported Past Surgical History: Cholecystectomy, Heart Catheterization With Stent Additional Past Surgical History / Comment(s): corbin cataracts, EGD Past Anesthesia/Blood Transfusion Reactions: No Reported Reaction Date of Last Stent Placement:: unknown Past Psychological History: No Psychological Hx Reported Additional Psychological History / Comment(s): memory loss Smoking Status: Never smoker Past Alcohol Use History: None Reported Past Drug Use History: None Reported - Past Family History Mother Family Medical History: Cancer Father Family Medical History: Cancer Medications and Allergies Home Medications Medication Instructions Recorded Confirmed Type Aclidinium [place] [Tudorza 1 puff PO BID PRN 05/27/17 08/03/17 History Pressair] Albuterol Inhaler [Ventolin Hfa 1 - 2 puff INHALATION Q6HR PRN 05/27/17 History Inhaler] Aspirin [Adult Low Dose Aspirin EC] 81 mg PO DAILY@1200 05/27/17 08/03/17 History Atorvastatin [Lipitor] 80 mg PO DAILY@1200 05/27/17 08/03/17 History Donepezil HCl [Aricept] 5 mg PO DAILY@1200 05/27/17 08/03/17 History Fluticasone/Salmeterol [Advair 1 inhalation PO BID PRN 05/27/17 08/03/17 History 250-50 Diskus] Ipratropium/Albuterol Sulfate 1 puff INHALATION QID PRN 05/27/17 08/03/17 History [Combivent Respimat Inhaler] Irbesartan [Avapro] 150 mg PO DAILY@1200 05/27/17 08/03/17 History Metoprolol Tartrate 25 mg PO BID-W/MEALS 05/27/17 08/03/17 History Montelukast [Singulair] 10 mg PO HS 05/27/17 08/03/17 History Multivitamins, Thera [Multivitamin 1 tab PO W/SUPPER 05/27/17 08/03/17 History (formulary)] Theophylline 12 Hour [Silvio-Dur] 300 mg PO BID 05/27/17 08/03/17 History predniSONE 5 mg PO BID-W/MEALS 05/27/17 08/03/17 History Pantoprazole Sodium [Pantoprazole 40 mg PO BID 08/03/17 08/03/17 History Sodium] Allergies Allergy/AdvReac Type Severity Reaction Status Date / Time ciprofloxacin [From Cipro] Allergy Rash/Hives Verified 08/03/17 13:49 Physical Exam Vitals: Vital Signs Temp Pulse Pulse Pulse Pulse Pulse Resp 08/04/17 12:29 102 H 08/04/17 12:20 102 H 08/04/17 08:58 98 08/04/17 08:50 98 08/04/17 06:28 97.8 F 101 H 20 08/03/17 23:45 98 F 108 H 20 08/03/17 21:25 102 H 08/03/17 21:08 100 08/03/17 18:25 96.8 F L 100 16 08/03/17 17:45 99.4 F 107 H 18 08/03/17 16:35 114 H 19 08/03/17 15:34 108 H 19 08/03/17 14:31 114 H 18 08/03/17 14:02 130 H 122 H 115 H 08/03/17 12:46 100.7 F H 114 H 18 BP BP BP BP Pulse Ox 08/04/17 12:29 08/04/17 12:20 08/04/17 08:58 08/04/17 08:50 08/04/17 06:28 145/77 99 08/03/17 23:45 117/58 97 08/03/17 21:25 08/03/17 21:08 08/03/17 18:25 128/63 99 08/03/17 17:45 133/57 95 08/03/17 16:35 123/60 100 08/03/17 15:34 115/67 98 08/03/17 14:31 129/59 98 08/03/17 14:02 143/63 128/71 142/59 08/03/17 12:46 154/70 98 Intake and Output 08/03/17 08/04/17 08/04/17 22:59 06:59 14:59 Intake Total 0 0 Balance 0 0 Intake: Oral 0 0 Other: # Voids 1 1 Results - Lab Results Most recent lab results Calcium 8.7 mg/dL (8.4-10.2) 08/04/17 08:48 08/04/17 08:48 08/04/17 08:48 Assessment and Plan Plan: Assessment: #1. Nonoliguric acute kidney injury secondary to ATN secondary to vomiting and diarrhea, further worsened with nonsteroidals. Patient also received IV contrast on August 03. Creatinine up to 1.51 today. #2. Non-anion gap metabolic acidosis secondary to IV fluids. Patient did have lactic acidosis on admission which is now resolved. #3. Lactic acidosis. Improved with IV hydration. Unclear etiology. Questionable bowel source. No evidence of hypotension. #4. Abdominal pain. Possibly related to acute pancreatitis although his lipase levels have come down significantly in 1 day. Also concern for enterocolitis on imaging. Gastroenterology and surgery following. #5. Chronic kidney disease stage III with baseline creatinine in the range of 1.2-1.4. Etiology is likely nephrosclerosis. #6. Hypertension with chronic kidney disease. Controlled. Plan: Discontinue normal saline. Start isotonic sodium bicarbonate drip to be run at 75 mL an hour. Avoid nephrotoxic agents and hypotensive episodes. Discontinue Motrin. Repeat electrolytes in the morning. Continue to monitor renal function closely over the next 48-72 hours to monitor for contrast-induced nephropathy. Patient will need to follow-up as an outpatient for chronic kidney disease care after discharge. Thank you for the consultation. I will continue to follow the patient with you during his hospital stay.
[2017-08-04] MEDS: DEXTROSE 5% IN WATER 1,000 ML with SODIUM BICARB (1 MEQ/ML) 150 ML IV SCH (13:27)
[2017-08-04 14:40] VITALS: BMI 25.4
--- NOTE | 2017-08-04 14:52 | P.GSCN ---
History of Present Illness Consult date: 08/04/17 Reason for Consult: Right side abdominal pain History of present illness: 77-year-old male being seen at the request of the attending for a surgical eval for right side upper quadrant abdominal pain. Patient reports prior to coming into the hospital he had episodes of nausea vomiting incontinent diarrhea frequent stooling for the past several weeks with poor oral intake. Patient stated that he felt dizzy and lightheaded and one episode felt like he could pass out. Additionally patient stated that for several months he has had a difficult time swallowing pills he feels like they get caught with reflux symptoms. Reportedly has been experiencing severe right side mid epigastric pain radiates to the right side interferes with activities of daily living. In the emergency room the lipase was 1130 repeat lipase this morning 227. Amylase on admission 178 this morning 95 AST and ALT are not elevated total bili not elevated white count this morning 6.1 hemoglobin 13.9 nephrology recommendations reviewed patient has a history of chronic kidney disease stage III CAT scan of the abdomen and pelvis obtained showed fluid distended small and large bowel. Correlate for entercolitis and diarrhea no abdominal x-ray done today reviewing the report indicates overall degree of small bowel dilatation some increased from prior computed tomography scan. Findings suggest continue ileus/enteritis rather than a small bowel obstruction. No free air. Additionally the patient reports having no stool since being admitted currently is tolerating a clear liquid diet continues to have persistent right upper quadrant abdominal pain Review of Systems Essentially unremarkable except as mentioned in the present illness Past Medical History Past Medical History: Coronary Artery Disease (CAD), COPD, GERD/Reflux, Hyperlipidemia, Hypertension Additional Past Medical History / Comment(s): dysphagia, states some memory loss History of Any Multi-Drug Resistant Organisms: None Reported Past Surgical History: Cholecystectomy, Heart Catheterization With Stent Additional Past Surgical History / Comment(s): corbin cataracts, EGD Past Anesthesia/Blood Transfusion Reactions: No Reported Reaction Date of Last Stent Placement:: unknown Past Psychological History: No Psychological Hx Reported Additional Psychological History / Comment(s): memory loss Smoking Status: Never smoker Past Alcohol Use History: None Reported Past Drug Use History: None Reported - Past Family History Mother Family Medical History: Cancer Father Family Medical History: Cancer Medications and Allergies Home Medications Medication Instructions Recorded Confirmed Type Aclidinium Doole [Tudorza 1 puff PO BID PRN 05/27/17 08/03/17 History Pressair] Albuterol Inhaler [Ventolin Hfa 1 - 2 puff INHALATION Q6HR PRN 05/27/17 History Inhaler] Aspirin [Adult Low Dose Aspirin EC] 81 mg PO DAILY@1200 05/27/17 08/03/17 History Atorvastatin [Lipitor] 80 mg PO DAILY@1200 05/27/17 08/03/17 History Donepezil HCl [Aricept] 5 mg PO DAILY@1200 05/27/17 08/03/17 History Fluticasone/Salmeterol [Advair 1 inhalation PO BID PRN 05/27/17 08/03/17 History 250-50 Diskus] Ipratropium/Albuterol Sulfate 1 puff INHALATION QID PRN 05/27/17 08/03/17 History [Combivent Respimat Inhaler] Irbesartan [Avapro] 150 mg PO DAILY@1200 05/27/17 08/03/17 History Metoprolol Tartrate 25 mg PO BID-W/MEALS 05/27/17 08/03/17 History Montelukast [Singulair] 10 mg PO HS 05/27/17 08/03/17 History Multivitamins, Thera [Multivitamin 1 tab PO W/SUPPER 05/27/17 08/03/17 History (formulary)] Theophylline 12 Hour [Silvio-Dur] 300 mg PO BID 05/27/17 08/03/17 History predniSONE 5 mg PO BID-W/MEALS 05/27/17 08/03/17 History Pantoprazole Sodium [Pantoprazole 40 mg PO BID 08/03/17 08/03/17 History Sodium] Allergies Allergy/AdvReac Type Severity Reaction Status Date / Time ciprofloxacin [From Cipro] Allergy Rash/Hives Verified 08/03/17 13:49 Surgical - Exam Vital Signs Temp Pulse Resp BP Pulse Ox 100.7 F H 114 H 18 154/70 98 08/03/17 12:46 08/03/17 12:46 08/03/17 12:46 08/03/17 12:46 08/03/17 12:46 GENERAL APPEARANCE: 77-year-old male patient is alert, oriented 3, in no acute distress. Sitting up in bed VITAL SIGNS: Reviewed HEENT: Head is normocephalic and atraumatic. Pupils are equal and reactive. The nares are patent. Oropharynx is clear without lesions. Reports having frequent clear nasal drainage NECK: Supple without lymphadenopathy. Traches midline. HEART: S1, S2. Regular rate and rhythm. Denying chest pain when questioning no murmur LUNGS: No crackles or wheezes are heard. Adequate air movement bilaterally on room air ABDOMEN: Soft, positive tenderness with facial grimacing to palpitation to the right upper quadrant, nondistended with active bowel sounds throughout. No peritoneal signs. No palpable organomegaly or masses. Currently taking a clear liquid diet. No nausea no vomiting no stool since admission EXTREMITIES: Normal skin color and turgor. No cyanosis, rash, ulceration, clubbing or edema. Radial pedal pulses are 2/4 bilaterally. NEUROLOGICAL: No focal deficits. Strength and sensation are grossly intact. Results - Labs 08/04/17 08:48 08/04/17 08:48 Abnormal Lab Results - Last 24 Hours (Table) 08/03/17 08/03/17 08/04/17 Range/Units 14:48 14:48 04:30 Neutrophils # 8.7 H (1.3-7.7) k/uL Lymphocytes # 0.6 L (1.0-4.8) k/uL Chloride (98-107) mmol/L Carbon Dioxide 21 L (22-30) mmol/L BUN 28 H (9-20) mg/dL Creatinine 1.32 H (0.66-1.25) mg/dL Glucose (74-99) mg/dL Total Protein (6.3-8.2) g/dL Albumin (3.5-5.0) g/dL Amylase 178 H (30-110) U/L Lipase 1130 H (23-300) U/L Ur Specific [place] >1.050 H (1.001-1.035) Urine Protein 1+ H (Negative) Urine Ketones 1+ H (Negative) Urine Mucus Rare H (None) /hpf 08/04/17 08/04/17 Range/Units 08:48 08:48 Neutrophils # (1.3-7.7) k/uL Lymphocytes # 0.9 L (1.0-4.8) k/uL Chloride 113 H (98-107) mmol/L Carbon Dioxide 15 L (22-30) mmol/L BUN 30 H (9-20) mg/dL Creatinine 1.51 H (0.66-1.25) mg/dL Glucose 67 L (74-99) mg/dL Total Protein 5.3 L (6.3-8.2) g/dL Albumin 2.9 L (3.5-5.0) g/dL Amylase (30-110) U/L Lipase (23-300) U/L Ur Specific [place] (1.001-1.035) Urine Protein (Negative) Urine Ketones (Negative) Urine Mucus (None) /hpf Microbiology - Last 24 Hours (Table) 08/04/17 04:30 Urine Culture - Preliminary Urine,Clean Catch Diabetes panel 08/03/17 08/04/17 Range/Units 14:48 08:48 Sodium 143 141 (137-145) mmol/L Potassium 4.4 4.7 (3.5-5.1) mmol/L Chloride 107 113 H (98-107) mmol/L Carbon Dioxide 21 L 15 L (22-30) mmol/L BUN 28 H 30 H (9-20) mg/dL Creatinine 1.32 H 1.51 H (0.66-1.25) mg/dL Glucose 80 67 L (74-99) mg/dL Calcium 9.2 8.7 (8.4-10.2) mg/dL AST 34 35 (17-59) U/L ALT 41 43 (21-72) U/L Alkaline Phosphatase 98 76 (38-126) U/L Total Protein 6.3 5.3 L (6.3-8.2) g/dL Albumin 3.7 2.9 L (3.5-5.0) g/dL Calcium panel 08/03/17 08/04/17 Range/Units 14:48 08:48 Calcium 9.2 8.7 (8.4-10.2) mg/dL Albumin 3.7 2.9 L (3.5-5.0) g/dL Pituitary panel 08/03/17 08/04/17 Range/Units 14:48 08:48 Sodium 143 141 (137-145) mmol/L Potassium 4.4 4.7 (3.5-5.1) mmol/L Chloride 107 113 H (98-107) mmol/L Carbon Dioxide 21 L 15 L (22-30) mmol/L BUN 28 H 30 H (9-20) mg/dL Creatinine 1.32 H 1.51 H (0.66-1.25) mg/dL Glucose 80 67 L (74-99) mg/dL Calcium 9.2 8.7 (8.4-10.2) mg/dL Adrenal panel 08/03/17 08/04/17 Range/Units 14:48 08:48 Sodium 143 141 (137-145) mmol/L Potassium 4.4 4.7 (3.5-5.1) mmol/L Chloride 107 113 H (98-107) mmol/L Carbon Dioxide 21 L 15 L (22-30) mmol/L BUN 28 H 30 H (9-20) mg/dL Creatinine 1.32 H 1.51 H (0.66-1.25) mg/dL Glucose 80 67 L (74-99) mg/dL Calcium 9.2 8.7 (8.4-10.2) mg/dL Total Bilirubin 0.8 0.6 (0.2-1.3) mg/dL AST 34 35 (17-59) U/L ALT 41 43 (21-72) U/L Alkaline Phosphatase 98 76 (38-126) U/L Total Protein 6.3 5.3 L (6.3-8.2) g/dL Albumin 3.7 2.9 L (3.5-5.0) g/dL Assessment and Plan Assessment: Impression Present on admission persistent right upper quadrant pain unclear etiology Computed tomography scan abdomen pelvis report reviewed showed fluid distended small or large bowel correlate enterocolitis Present on admission elevated lipase unclear etiology resolved Prior to admission syncopal episode suspect due to dehydration in a patient who reports persistent nausea vomiting frequent stooling poor oral intake History of a prior cholecystectomy recent EGD May 2017 showed small sliding hiatal hernia mild antral gastritis no obvious esophagitis as part of a workup for dysphagia History of nausea vomiting frequent stooling past several weeks Chronic dysphia Plan No evidence of an acute surgical abdomen IV fluid per nephrology's recommendations Obtain stool for C. diff culture Repeat labs in the morning Repeat abdominal x-ray in the morning Continue IV Flagyl 100mg every 6 hours as ordered Pain control DVT and GI prophylaxis Surgical consultation note dictated for dr roma thomas The above impression and plan of care have been discussed and directed by signing physician. Luciana Chang nurse practitioner acting as scribe for signing physician.
[2017-08-04] MEDS: ACETAMINOPHEN TAB 325 MG TAB PO PRN ×2 (16:54→22:28)
[2017-08-05] MEDS: metroNIDAZOLE-NS PMX 500 MG in SALINE 1 100ML.BAG IVPB SCH ×4 (00:03→18:03)
[2017-08-05] MEDS: ACETAMINOPHEN TAB 325 MG TAB PO PRN ×3 (04:31→20:25)
[2017-08-05] MEDS: MORPHINE SULFATE/PF 10MG/10ML VL IVP PRN (04:31)
[2017-08-05] MEDS: DEXTROSE 5% IN WATER 1,000 ML with SODIUM BICARB (1 MEQ/ML) 150 ML IV SCH ×2 (06:36→08:38)
[2017-08-05] MEDS: SYMBICORT 80-4.5 MCG INHALER INHALATION SCH ×2 (07:10→19:12)
--- NOTE | 2017-08-05 08:04 | XR ---
EXAMINATION TYPE: XR abdomen 2V DATE OF EXAM: 08/05/2017 CLINICAL HISTORY: Ileus/diverticulosis with right upper quadrant pain TECHNIQUE: Supine and upright views of the abdomen are obtained. COMPARISON: Abdominal x-ray series from one day earlier. CT abdomen and pelvis from 2 days earlier. FINDINGS: Gas is redemonstrated in nondistended stomach. There is gas seen in slightly prominent smal l bowel loops in the central abdomen with air-fluid levels. There is gas seen in nondistended colon a long the periphery. A few air-fluid levels in the right lateral abdomen remain present. Amount of gas -filled distention is felt improved from improved from abdominal x-ray one day earlier. There are ova l densities consistent with nonabsorbed pills redemonstrated. Change in position is noted. Cholecyste ctomy clips are redemonstrated. There is new patchy left basilar lateral opacity consistent with atel ectasis and/or infiltrate. No pneumoperitoneum is identified. Brachytherapy seeds in prostate gland o verlying pubic symphysis are redemonstrated. There are few scattered pelvic phleboliths. Visualized o sseous structures are intact. IMPRESSION: Overall nonspecific but favor nonobstructive bowel gas pattern. Improvement in number of gas-filled and dilated small bowel loops is felt present. Scattered prominent loops with air-fluid l evels however remain present.
[2017-08-05] MEDS: METOPROLOL TARTRATE 25 MG TAB PO SCH ×3 (08:36→17:48)
[2017-08-05] MEDS: PANTOPRAZOLE 40 MG/10 ML VIAL IVP SCH (08:36)
--- NOTE | 2017-08-05 08:54 | P.PN ---
Subjective Progress Note Date: 08/05/17 The patient is a 77-year-old gentleman who was admitted after an episode of nausea vomiting and explosive diarrhea. He was subsequently noted to have dehydration and is being rehydrated. He complains of a long-time history of midepigastric abdominal discomfort as well as esophageal spasm. He additionally complains of some more recent right upper quadrant abdominal discomfort. Initially on admission his lipase was elevated which has resolved. His white blood cell count is normal. The diarrhea has abated. He is currently tolerating a clear liquid diet. He does continue to have some right upper quadrant abdominal discomfort. Abdominal x-rays today reveal nonspecific nonobstructive bowel gas pattern. Improvement in the number of gas filled and dilated small bowel loops was felt present. Objective - Vital Signs Vital signs: Vital Signs Temp 96.8 F L 08/05/17 07:00 Pulse 99 08/05/17 07:00 Resp 18 08/05/17 07:00 BP 134/70 08/05/17 07:00 Pulse Ox 95 08/05/17 07:00 Intake & Output 08/04/17 08/05/17 08/05/17 18:59 06:59 18:59 Intake Total 100 Balance 100 Weight 78.018 kg Intake: Oral 100 Other: Voiding Method Toilet # Voids 2 1 - Constitutional General appearance: Present: average body habitus - Respiratory Details: Decreased breath sounds at the bases - Cardiovascular Rhythm: regular Heart sounds: normal: S1, S2 - Gastrointestinal Gastrointestinal Comment(s): Tenderness to palpation of the rib cage on the right with some tenderness of the abdomen as well in the right upper quadrant area. The patient is abdomen however is soft without guarding or rebound. Positive bowel sounds General gastrointestinal: Present: soft - Psychiatric Psychiatric: Present: A&O x's 3, appropriate affect - Labs CBC & Chem 7: 08/04/17 08:48 08/04/17 08:48 Labs: Abnormal Lab Results - Last 24 Hours (Table) 08/04/17 08/04/17 Range/Units 08:48 08:48 Lymphocytes # 0.9 L (1.0-4.8) k/uL Chloride 113 H (98-107) mmol/L Carbon Dioxide 15 L (22-30) mmol/L BUN 30 H (9-20) mg/dL Creatinine 1.51 H (0.66-1.25) mg/dL Glucose 67 L (74-99) mg/dL Total Protein 5.3 L (6.3-8.2) g/dL Albumin 2.9 L (3.5-5.0) g/dL Microbiology - Last 24 Hours (Table) 08/03/17 13:31 Blood Culture - Preliminary Blood No Growth after 24 hours 08/04/17 04:30 Urine Culture - Preliminary Urine,Clean Catch - Imaging and Cardiology Abdominal x-ray: report reviewed, image reviewed Assessment and Plan Plan: Impression/plan: 1. Suspect gastroenteritis with nausea vomiting diarrhea and resolving dehydration 2. Possible C. diff colitis 3. History of chronic abdominal pain 4. History of esophageal spasm 5. History of connective tissue disease/rhinitis 6. History of hypertension 7. Renal disease being followed by nephrology 8. Resolution of elevated lipase questionable etiology Plan: 1. Uncertain of the etiology of the right upper quadrant abdominal discomfort. At this time there is no clear surgical cause. I would suggest continued conservative management with colonoscopy considered after resolution of his symptoms. 2. Medical management of medical problems
--- NOTE | 2017-08-05 10:00 | P.PN ---
Subjective patient is seen in follow-up for acute kidney injury. Patient has chronic kidney disease stage III with baseline creatinine in the range of 1.2-1.4. Creatinine was up to 1.5 yesterday. Labs from today are pending at this time. Patient presented with nausea vomiting and abdominal pain. Patient did sustain a fall prior to admission. He admits to pain in the right upper quadrant more specifically in the rib cage. Denies chest pain or shortness of breath. Admits to good urine output. Vital signs are stable. General: The patient appeared well nourished and normally developed. HEENT: Head exam is unremarkable. Neck is without jugular venous distension. LUNGS: Lungs are clear to auscultation and percussion. Breath sounds decreased. HEART: Rate and Rhythm are regular. First and second heart sounds normal. No murmurs, rubs or gallops. ABDOMEN: Abdominal exam reveals normal bowel sounds. Non-tender and non- distended. No evidence of peritonitis. EXTREMITITES: No clubbing, cyanosis, or edema. Objective - Vital Signs Vital signs: Vital Signs Temp 96.8 F L 08/05/17 07:00 Pulse 99 08/05/17 07:00 Resp 18 08/05/17 07:00 BP 134/70 08/05/17 07:00 Pulse Ox 95 08/05/17 07:00 Intake & Output 08/04/17 08/05/17 08/05/17 18:59 06:59 18:59 Intake Total 100 Balance 100 Weight 78.018 kg Intake: Oral 100 Other: Voiding Method Toilet # Voids 2 1 - Labs CBC & Chem 7: 08/04/17 08:48 08/04/17 08:48 Labs: Abnormal Lab Results - Last 24 Hours (Table) 08/04/17 Range/Units 08:48 Chloride 113 H (98-107) mmol/L Carbon Dioxide 15 L (22-30) mmol/L BUN 30 H (9-20) mg/dL Creatinine 1.51 H (0.66-1.25) mg/dL Glucose 67 L (74-99) mg/dL Total Protein 5.3 L (6.3-8.2) g/dL Albumin 2.9 L (3.5-5.0) g/dL Microbiology - Last 24 Hours (Table) 08/03/17 13:31 Blood Culture - Preliminary Blood No Growth after 24 hours 08/04/17 04:30 Urine Culture - Preliminary Urine,Clean Catch Assessment and Plan Plan: Assessment: #1. Nonoliguric acute kidney injury secondary to ATN secondary to vomiting and diarrhea, further worsened with nonsteroidals. Patient also received IV contrast on August 03. Creatinine up to 1.51 as of yesterday. #2. Non-anion gap metabolic acidosis secondary to IV fluids. Patient did have lactic acidosis on admission which is now resolved. #3. Lactic acidosis. Improved with IV hydration. Unclear etiology. Questionable bowel source. No evidence of hypotension. #4. Abdominal pain. Possibly related to acute pancreatitis although his lipase levels have come down significantly in 1 day. Also concern for enterocolitis on imaging. Gastroenterology and surgery following. Also concern for musculoskeletal pain as it's more in his rib cage than in the abdomen. #5. Chronic kidney disease stage III with baseline creatinine in the range of 1.2-1.4. Etiology is likely nephrosclerosis. #6. Hypertension with chronic kidney disease. Controlled. Plan: Maintain isotonic sodium bicarbonate drip to be run at 75 mL an hour. Avoid nephrotoxic agents and hypotensive episodes. Discontinued Motrin. Repeat electrolytes in the morning. Continue to monitor renal function and urine output for contrast-induced nephropathy. Patient will need to follow-up as an outpatient for chronic kidney disease care after discharge. Follow-up a.m. labs.
[2017-08-05 10:49] LABS: Basophils % (A) 0 %; Eosinophils # (A) 0.1 k/uL (0-0.7); Eosinophils % (A) 1 %; HCT 34.8 % (39.0-53.0); HGB 11.5 gm/dL (13.0-17.5); Lymphocytes # (A) 0.8 k/uL (1.0-4.8); Lymphocytes % (A) 12 %; MCH 30.6 pg (25.0-35.0); MCHC 33.2 g/dL (31.0-37.0); MCV 92.3 fL (80.0-100.0); Mean Platelet Volume 6.8; Monocytes # (A) 0.5 k/uL (0-1.0); Monocytes % (A) 7 %; Neutrophils # (A) 5.3 k/uL (1.3-7.7); Neutrophils % (A) 78 %; Platelet Count 233 k/uL (150-450); RBC 3.77 m/uL (4.30-5.90); RDW 12.9 % (11.5-15.5); WBC 6.8 k/uL (3.8-10.6)
[2017-08-05 11:35] LABS: Albumin 2.5 g/dL (3.5-5.0); Calcium 8.2 mg/dL (8.4-10.2); Magnesium 1.7 mg/dL (1.6-2.3); Potassium 3.5 mmol/L (3.5-5.1); Total Bilirubin 0.4 mg/dL (0.2-1.3); Total Protein 4.6 g/dL (6.3-8.2)
[2017-08-05] MEDS: SODIUM CHLORIDE 0.9% 1,000 ML IV SCH (13:32)
--- NOTE | 2017-08-05 13:40 | P.PN ---
Subjective Progress Note Date: 08/05/17 This is dictation progress note date of service 08/05/2017. Dictation by Dr. Suraj Guadalupe [facility]. Patient seen and evaluated [id number] Patient still complained of abdominal pain associated with the right upper quadrant. Seen by the surgery Dr. Carmenza Painter and she addressed in her note that since the medical management only no surgical problem. With the history of hypo-tension probably and fall down secondary to severe diarrhea and dehydration could be the blood flow to the area of the supply of the colon and superior mesenteric could be compromised and causing his symptoms. However patient has ileus as well by the abdominal x-ray series. The etiology is unclear. His pancreatic enzyme is normal, he was seen by gastroenterology and we don't have guideline so far from Dr. Wade with a his pain is continue to be present. The surgical team indicating this is a medical and with no complete resolution of the problem we will be increasing his diet to clear liquid diet also he if he tolerated or he increase his symptoms. His vital signs stable, with a blood pressure is normal controlled. No shortness of breath and he has been on IV fluid addressed by Dr. Dee to nephrology with the adjusting for the bye-bye bicarbonate due to his metabolic acidosis which we don't know about the etiology of that. 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 He able to eat and swallow he has difficulty closing his left eye and he had the drops for that. Neck was supple no JVD no thyromegaly no lymphadenopathy. Trachea midline Chest was clear to auscultation percussion no wheezes nor rhonchi's, Heart was regular sinus rhythm no dysrhythmia. Abdomen he has tenderness on the right upper quadrant, and also mild mild low left lower quadrant discomfort. Patient has no BM since admitted to the hospital prior to that he had severe diarrhea stated 17 time was loose and watery, with the abdominal pain was uncontrollable 10 over 10. Currently the abdominal pain has mildly decreased to 8 or 7/10. The The risks extremities no pedal edema and positive pulses with good with good with a good perfusion. Neurologically patient stable general condition . Assessment #1 acute abdominal pain with ileus #2 severe diarrhea with watery stools extensive, no sample so far as the patient since he arrived to the emergency room has no bowel movement. Underlying C. difficile colitis considered. #3 acute pancreatitis is considered with elevated a mild wheeze and lipase orally for one time without associated previous symptoms as the patient wake up with the abdominal pain and diarrhea he is not alcoholic and he is not a diabetic, and he has previously gallbladder laparoscopic cholecystectomy added to that he has second day his lipase and a Mytelase normal lipase (picture suggestive is in the bowel not in the pancreas admitted to the computed tomography scan of the abdomen indicating normal pancreas. #4 gastroenteritis with the associated with nausea and vomiting. 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 #6 history of hypertension Plan we will obtain tomorrow abdominal x-ray series. And start clear liquid diet and start ambulation as tolerated. Objective - Vital Signs Vital signs: Vital Signs Temp 96.8 F L 08/05/17 07:00 Pulse 99 08/05/17 07:00 Resp 18 08/05/17 07:00 BP 134/70 08/05/17 07:00 Pulse Ox 95 08/05/17 07:00 Intake & Output 08/04/17 08/05/17 08/05/17 18:59 06:59 18:59 Intake Total 100 120 Balance 100 120 Weight 78.018 kg Intake: Oral 100 120 Other: Voiding Method Toilet # Voids 2 1 - Labs CBC & Chem 7: 08/05/17 09:17 08/05/17 09:17 Labs: Abnormal Lab Results - Last 24 Hours (Table) 08/04/17 08/05/17 08/05/17 Range/Units 08:48 09:17 09:17 RBC 3.77 L (4.30-5.90) m/uL Hgb 11.5 L (13.0-17.5) gm/dL Hct 34.8 L (39.0-53.0) % Lymphocytes # 0.8 L (1.0-4.8) k/uL Chloride 113 H (98-107) mmol/L Carbon Dioxide 15 L (22-30) mmol/L BUN 30 H (9-20) mg/dL Creatinine 1.51 H (0.66-1.25) mg/dL Glucose 67 L (74-99) mg/dL Calcium 8.2 L (8.4-10.2) mg/dL Total Protein 5.3 L 4.6 L (6.3-8.2) g/dL Albumin 2.9 L 2.5 L (3.5-5.0) g/dL Microbiology - Last 24 Hours (Table) 08/04/17 04:30 Urine Culture - Preliminary Urine,Clean Catch Gram Neg Bacilli 08/03/17 13:31 Blood Culture - Preliminary Blood No Growth after 24 hours
--- NOTE | 2017-08-05 15:27 | US ---
EXAMINATION TYPE: US abdomen comp/pelvis limited DATE OF EXAM: 08/05/2017 COMPARISON: CT abdomen and pelvis 2 days ago. CLINICAL HISTORY: abd. pain; initially had pancreatitis, diarrhea and vomiting; gallbladder removed EXAM MEASUREMENTS: Liver Length: 13.8 cm Gallbladder Wall: surgically removed CBD: 0.7 cm Spleen: 8.6 cm Right Kidney: 9.6 x 4.9 x 5.7 cm Left Kidney: 10.6 x 6.0 x 4.8 cm Post Void Residual: not assessed on inpatient Patient is on clear liquids and scanned in afternoon. Pancreas: limitedly seen due to overlying bowel gas Liver: small left lobe; multiple small hyperechoic foci especially noted in right lobe Gallbladder: surgically removed CBD: size is wnl post cholecystectomy Spleen: multiple hyperechoic foci imaged Right Kidney: mid cortical cyst is noted = 0.7 x 0.6 x 0.4cm Left Kidney: left renal cyst not seen on US; lobular cortex is noted Upper IVC: wnl Abd Aorta: size is wnl Bladder: wnl Bilateral Jets Seen Yes Visualized pancreas is suboptimally evaluated on images saved due to shadowing from overlying bowel g as, appeared within normal limits on recent CT. Visualized portion of aorta shows no aneurysmal knight e. IVC is seen near hepatic dome. Visualized liver is small in size and heterogeneous in appearance. Gallbladder is surgically absent. Kidneys show no gross hydronephrosis bilaterally. There are calcifi cations scattered throughout the visualized spleen redemonstrated presumed product of old granulomato us disease. Bladder is satisfactorily distended without suspicious mass or wall thickening on ultraso und. Bilateral distal ureter jets are seen. IMPRESSION: No significant new finding seen to account for patient's symptoms of persistent pain.
[2017-08-05] MEDS: ARTIFICIAL TEARS-HYPROMELLOSE DROPS 15 ML BTL LEFT EYE PRN (21:02)
[2017-08-06] MEDS: metroNIDAZOLE-NS PMX 500 MG in SALINE 1 100ML.BAG IVPB SCH ×3 (00:35→12:19)
[2017-08-06] MEDS: SODIUM CHLORIDE 0.9% 1,000 ML IV SCH (02:52)
[2017-08-06] MEDS: SYMBICORT 80-4.5 MCG INHALER INHALATION SCH ×2 (08:06→19:25)
[2017-08-06] MEDS: METOPROLOL TARTRATE 25 MG TAB PO SCH ×2 (08:11→17:45)
[2017-08-06] MEDS: MORPHINE SULFATE/PF 10MG/10ML VL IVP PRN (08:11)
[2017-08-06] MEDS: PANTOPRAZOLE 40 MG/10 ML VIAL IVP SCH (08:12)
[2017-08-06] MEDS: ACETAMINOPHEN TAB 325 MG TAB PO PRN (08:16)
[2017-08-06 08:57] LABS: Basophils % (A) 0 %; Eosinophils # (A) 0.1 k/uL (0-0.7); Eosinophils % (A) 1 %; HCT 37.6 % (39.0-53.0); HGB 13.1 gm/dL (13.0-17.5); Lymphocytes % (A) 12 %; MCHC 34.8 g/dL (31.0-37.0); MCV 89.2 fL (80.0-100.0); Mean Platelet Volume 6.5; Monocytes # (A) 0.4 k/uL (0-1.0); Monocytes % (A) 5 %; Neutrophils # (A) 6.4 k/uL (1.3-7.7); Neutrophils % (A) 80 %; Platelet Count 275 k/uL (150-450); RBC 4.21 m/uL (4.30-5.90); RDW 12.8 % (11.5-15.5)
[2017-08-06 09:04] LABS: Calcium 8.5 mg/dL (8.4-10.2); Potassium 3.9 mmol/L (3.5-5.1)
[2017-08-06] MEDS ORDERED: GLYCERIN ADULT SUPPOSITORY 1 EACH RECTAL STA (13:02)
[2017-08-06] MEDS ORDERED: MONTELUKAST 10 MG TAB PO STA (13:14)
--- NOTE | 2017-08-06 14:08 | P.PN ---
Subjective Progress Note Date: 08/06/17 There is a dictation on progress note date of service 08/[address] dayanara M.D. [facility]. Patient seen and evaluated today [id number] his daughter at bedside. Complaining of the abdominal pain in the right upper quadrant improved gradually however when he pushes hand on his right upper quadrant and remove it fast it caused pain. Consultation with the gastroenterology Dr. Wade, current consultation with surgery Dr. Carmenza Painter. They considered that has medical problem with the underlying gastroenteritis probably enterocolitis as well with the history indicating probability of C. difficile colitis however patient had no BM since admission and the test for C. difficile PCR was not done. Patient has no BM since admission, he had history of acute kidney injury on the top of chronic kidney disease stage III and metabolic acidosis which has been corrected with the nephrology Dr. IBARRA with the IV sodium bicarb and continue hydration. Objective - Vital Signs Vital signs: Vital Signs Temp 98.8 F 08/06/17 06:35 Pulse 96 08/06/17 06:35 Resp 12 08/06/17 06:35 BP 137/76 08/06/17 06:35 Pulse Ox 96 08/06/17 06:35 Intake & Output 08/05/17 08/06/17 08/06/17 18:59 06:59 18:59 Intake Total 360 Balance 360 Intake: Oral 360 Other: # Voids 1 2 # Bowel Movements 0 - Labs CBC & Chem 7: 08/06/17 07:58 08/06/17 07:58 Labs: Abnormal Lab Results - Last 24 Hours (Table) 08/06/17 08/06/17 Range/Units 07:58 07:58 RBC 4.21 L (4.30-5.90) m/uL Hct 37.6 L (39.0-53.0) % Carbon Dioxide 21 L (22-30) mmol/L Glucose 62 L (74-99) mg/dL Microbiology - Last 24 Hours (Table) 08/03/17 13:31 Blood Culture - Preliminary Blood No Growth after 48 hours 08/04/17 04:30 Urine Culture - Preliminary Urine,Clean Catch Gram Neg Bacilli
[2017-08-06] MEDS: ASPIRIN 81 MG PO SCH (14:13)
[2017-08-06] MEDS: predniSONE 5 MG TAB PO SCH (14:13)
--- NOTE | 2017-08-06 14:22 | P.PN ---
Objective - Vital Signs Vital signs: Vital Signs Temp 98.8 F 08/06/17 06:35 Pulse 96 08/06/17 06:35 Resp 12 08/06/17 06:35 BP 137/76 08/06/17 06:35 Pulse Ox 96 08/06/17 06:35 Intake & Output 08/05/17 08/06/17 08/06/17 18:59 06:59 18:59 Intake Total 360 Balance 360 Intake: Oral 360 Other: # Voids 1 2 # Bowel Movements 0 - Labs CBC & Chem 7: 08/06/17 07:58 08/06/17 07:58 Labs: Abnormal Lab Results - Last 24 Hours (Table) 08/06/17 08/06/17 Range/Units 07:58 07:58 RBC 4.21 L (4.30-5.90) m/uL Hct 37.6 L (39.0-53.0) % Carbon Dioxide 21 L (22-30) mmol/L Glucose 62 L (74-99) mg/dL Microbiology - Last 24 Hours (Table) 08/03/17 13:31 Blood Culture - Preliminary Blood No Growth after 48 hours
--- NOTE | 2017-08-06 15:20 | P.PN ---
Progress Note - Text Progress Note Date: 08/06/17 Patient seen and evaluated. He is ambulating frequently in the hallways. He is tolerating regular diet. No abdominal pain. Labs reviewed. Patient may be discharged home from a surgical standpoint.
--- NOTE | 2017-08-06 17:44 | P.PN ---
Subjective Progress Note Date: 08/06/17 The patient is a 77-year-old gentleman admitted for acute onset nausea and vomiting including pancreatitis and abdominal pain. Since hospitalization, symptoms have completely resolved. He is ambulating frequently in the hallways. He is tolerating regular diet. No abdominal pain. Objective - Vital Signs Vital signs: Vital Signs Temp 96.2 F L 08/06/17 14:57 Pulse 84 08/06/17 14:57 Resp 18 08/06/17 14:57 BP 121/67 08/06/17 14:57 Pulse Ox 97 08/06/17 14:57 Intake & Output 08/05/17 08/06/17 08/06/17 18:59 06:59 18:59 Intake Total 360 Balance 360 Intake: Oral 360 Other: # Voids 1 2 # Bowel Movements 0 - Exam GENERAL: Well developed and in no acute distress. Pleasant. HEENT: No sclera icterus. Extraocular movements grossly intact. Moist buccal mucosa. Head is atraumatic, normocephalic. Hears conversational speech. No nasal drainage. NECK: Supple without lymphadenopathy. CHEST: Non-labored respirations and equal bilateral excursions. CARDIOVASCULAR: Regular rate and rhythm. Palpable 2+ radial pulses. ABDOMEN: Soft, nontender. Nondistended. MUSCULOSKELETAL: No clubbing, cyanosis or edema. NEUROLOGIC: No focal or lateralizing signs. PSYCH: Appropriate affect. Alert and oriented to person, place and time. SKIN: Good skin turgor. Well perfused. - Labs CBC & Chem 7: 08/06/17 07:58 08/06/17 07:58 Labs: Abnormal Lab Results - Last 24 Hours (Table) 08/06/17 08/06/17 Range/Units 07:58 07:58 RBC 4.21 L (4.30-5.90) m/uL Hct 37.6 L (39.0-53.0) % Carbon Dioxide 21 L (22-30) mmol/L Glucose 62 L (74-99) mg/dL Microbiology - Last 24 Hours (Table) 08/03/17 13:31 Blood Culture - Preliminary Blood No Growth after 48 hours Assessment and Plan (1) Abdominal pain Current Visit: Yes Status: Acute Code(s): R10.9 - UNSPECIFIED ABDOMINAL PAIN SNOMED Code(s): 39418002 (2) Acute vomiting Current Visit: Yes Status: Acute Code(s): R11.10 - VOMITING, UNSPECIFIED SNOMED Code(s): 85241435 (3) Pancreatitis Current Visit: Yes Status: Acute Code(s): K85.90 - ACUTE PANCREATITIS WITHOUT NECROSIS OR INFECTION, UNSP SNOMED Code(s): 44854853 Plan: 1. Labs reviewed and normalized. 2. Patient may be discharged home from a surgical standpoint. I'm rounding on behalf of Dr. Lu
[2017-08-06] MEDS: LOSARTAN 25 MG TAB PO SCH ×2 (20:20→20:24)
[2017-08-06] MEDS: HEPARIN SODIUM,PORCINE 5,000 UNIT/ML 1 ML VIAL SQ SCH (20:20)
[2017-08-06 23:16] VITALS: RESP 16
[2017-08-07 05:44] VITALS: BP 121/68; TEMP 97.5
[2017-08-07] MEDS ORDERED: PANTOPRAZOLE 40 MG TABLET PO SCH (07:30)
[2017-08-07] MEDS: SYMBICORT 80-4.5 MCG INHALER INHALATION SCH (07:33)
[2017-08-07] MEDS ORDERED: MORPHINE SULF 5MG/10ML VL IVP PRN (07:44)
[2017-08-07] MEDS: LOSARTAN 25 MG TAB PO SCH (08:51)
[2017-08-07] MEDS: ASPIRIN 81 MG PO SCH (08:51)
[2017-08-07] MEDS: METOPROLOL TARTRATE 25 MG TAB PO SCH (08:52)
[2017-08-07] MEDS: HEPARIN SODIUM,PORCINE 5,000 UNIT/ML 1 ML VIAL SQ SCH (08:52)
[2017-08-07] MEDS: predniSONE 5 MG TAB PO SCH (08:52)
[2017-08-07 08:56] VITALS: PULSE 115
[2017-08-07] MEDS ORDERED: ATORVASTATIN 80 MG TAB PO SCH (09:00)
[2017-08-07] MEDS ORDERED: THEOPHYLLINE 24 HOUR 200 MG CAP.ER.24H PO SCH (09:00)
[2017-08-07] MEDS ORDERED: SULFAMETHOX-TMP 400-80MG 1 EACH TAB PO SCH (13:00)
--- NOTE | 2017-08-07 13:50 | P.DS ---
Providers Date of admission: 08/03/17 16:49 Discharge summary date of service 08/07/17. Final diagnoses: #1 acute diarrhea associated with severe dehydration#2 acute gastroenteritis viral #3 acute enterocolitis associated with C. difficile could not ruled out completely as patient could not produce diarrhea in the hospital and the test for C. difficile was not done. #4 ileus associated with abdominal pain severe with grade 10 over 10 and 8-9/10 which is resolved. #5 acute kidney injury secondary to severe dehydration/prerenal resolved. #6 underlying mild metabolic acidosis. 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 #8 Raynaud disease affected his hands and his feet with exposure to cold. #9 orthostatic hypotension secondary to dehydration. #10 essential hypertension controlled. # 10 UTI Serratia marcescens by the culture sensitive to Bactrim SS twice a day for 3 days course. 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 #11 abnormal lipase and amylase on admission ER corrected on the subsequent days to normal within normal computed tomography scan, acute pancreatitis has been ruled out with a history of laparoscopic cholecystitis, no diabetes, advised when he wakes up in a.m. with diarrhea then resolved no alcohol intake. Presentation in the emergency room: Severe abdominal pain 10 over 10 associated with tenderness on the right upper quadrant. And lower left quadrant however the pain is generalized as well. Next Patient admitted to the floor consultation with gastroenterology as well as consultation with Dr. Ethel Kilgore. Hospital course: Patient continued to have severe abdominal pain, we thought with the severe diarrhea 17 time with watery stools no blood was normal color Consultation with gastroenterology as well as surgery obtained Computed tomography scan was done in the emergency room and that they thought that because one time elevation of the mild nasal lipase is a pancreatitis which I did disagree with that as well as the surgeon Dr. Ethel Kilgore. The urine culture done in the emergency room however we have the result today and found to be Serratia marcescens and the best treatment out of his ALLERGY is Bactrim SS with respect to his underlying chronic kidney disease. 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 And patient recover. We advanced his diet gradually and resume his home medication, and ambulate as tolerated. Patient able to handle the fluid was clear liquids followed by healthy heart diet and felt much better. On discharge: His vital signs stable, abdominal pain has been resolved almost completely able to ambulate without dizziness. We discontinued already the IV fluid as well as the Flagyl, patient has only small BM which was solid. As he feeling much better and stable the examination: HEENT negative Neck was supple no JVD. No lymph node. Chest was clear to auscultation and percussion Heart was regular sinus rhythm. Abdomen soft positive bowel sound with a deep palpitation no significant abdominal pain in the 4 quadrants. No suprapubic tenderness Extremities no edema and positive pulses Neurologically stable warfarin 4 extremities able to ambulate answering the questions appropriately his daughter at bedside. Assessment: Patient stable general condition with resolved his acute problem Plan: 1 because of his urinary tract infection with the Serratia marcescens S we'll start him on Bactrim SS1 tablet every 12 hours for 3 days, continue the installing the tear artificial tear because of the closure of his left eye with the dry eyes due to his previous Bradley's palsy. #2 continue home medication. #3 hold on Aricept until seen in the office number for decrease his steroid the prednisone to 5 mg every morning only. Follow-up: #1 patient should follow-up with Dr. Lozano/Dr. Wade gastroenterology in 1 week. #2. They need the surgeon Dr. Ethel Kilgore has been seeing him in the hospital. #3 I will see the patient in 2 weeks as being out of town if he need immediate attention Dr. Edgar Ortiz will be covering me. Attending physician: Kevin Griffin Consults: 08/03/17 16:49 Consult Physician Urgent Consulting Provider: Randy Guzman Consult Reason/Comments: Pancreatitis Do you want consulting provider notified?: Yes 08/04/17 11:20 Consult Physician Routine Consulting Provider: Cordell Dee Consult Reason/Comments: decreasing renal function Do you want consulting provider notified?: Yes Consult Physician Urgent Consulting Provider: Meghana Lu Consult Reason/Comments: right side abdominal pain Do you want consulting provider notified?: Yes Primary care physician: Kevin Griffin Plan - Discharge Summary Discharge Rx Participant: Yes New Discharge Prescriptions: New Artificial Tears-Hypromellose [Artificial Tear Drops] 1 drops LEFT EYE QID PRN 90 Days #1 bottle PRN Reason: Dry Eye(S) Atorvastatin [Lipitor] 80 mg PO DAILY tab predniSONE 5 mg PO DAILY tab Sulfamethox-Tmp 400-80Mg [Bactrim SS 400-80 mg] 1 each PO BID 3 Days #6 tab Continue Fluticasone/Salmeterol [Advair 250-50 Diskus] 1 inhalation PO BID PRN PRN Reason: Shortness Of Breath Albuterol Inhaler [Ventolin Hfa Inhaler] 1 - 2 puff INHALATION Q6HR PRN PRN Reason: Shortness Of Breath Aclidinium Inlet [Tudorza Pressair] 1 puff PO BID PRN PRN Reason: Shortness Of Breath Montelukast [Singulair] 10 mg PO HS Metoprolol Tartrate 25 mg PO BID-W/MEALS Irbesartan [Avapro] 150 mg PO DAILY@1200 Ipratropium/Albuterol Sulfate [Combivent Respimat Inhaler] 1 puff INHALATION QID PRN PRN Reason: Shortness Of Breath Theophylline 12 Hour [Silvio-Dur] 300 mg PO BID Atorvastatin [Lipitor] 80 mg PO DAILY@1200 Multivitamins, Thera [Multivitamin (formulary)] 1 tab PO W/SUPPER Aspirin [Adult Low Dose Aspirin EC] 81 mg PO DAILY@1200 Pantoprazole Sodium 40 mg PO BID Discontinued predniSONE 5 mg PO BID-W/MEALS Donepezil HCl [Aricept] 5 mg PO DAILY@1200 Discharge Medication List Aclidinium Inlet [Tudorza Pressair] 1 puff PO BID PRN 05/27/17 [History] Albuterol Inhaler [Ventolin Hfa Inhaler] 1 - 2 puff INHALATION Q6HR PRN [History] Aspirin [Adult Low Dose Aspirin EC] 81 mg PO DAILY@1200 05/27/17 [History] Atorvastatin [Lipitor] 80 mg PO DAILY@1200 05/27/17 [History] Fluticasone/Salmeterol [Advair 250-50 Diskus] 1 inhalation PO BID PRN 05/27/17 [ History] Ipratropium/Albuterol Sulfate [Combivent Respimat Inhaler] 1 puff INHALATION QID PRN 05/27/17 [History] Irbesartan [Avapro] 150 mg PO DAILY@1200 05/27/17 [History] Metoprolol Tartrate 25 mg PO BID-W/MEALS 05/27/17 [History] Montelukast [Singulair] 10 mg PO HS 05/27/17 [History] Multivitamins, Thera [Multivitamin (formulary)] 1 tab PO W/SUPPER 05/27/17 [ History] Theophylline 12 Hour [Silvio-Dur] 300 mg PO BID 05/27/17 [History] Pantoprazole Sodium 40 mg PO BID 08/03/17 [History] Artificial Tears-Hypromellose [Artificial Tear Drops] 1 drops LEFT EYE QID PRN 90 Days #1 bottle 08/07/17 [Rx] Atorvastatin [Lipitor] 80 mg PO DAILY tab 08/07/17 [Rx] Sulfamethox-Tmp 400-80Mg [Bactrim SS 400-80 mg] 1 each PO BID 3 Days #6 tab 05/26 [Rx] predniSONE 5 mg PO DAILY tab 08/07/17 [Rx] Follow up Appointment(s)/Referral(s): Evelyn Worthington MD [STAFF PHYSICIAN] - 1 Week Kevin Griffin MD [Primary Care Provider] - 2 Weeks Discharge Disposition: HOME SELF-CARE
== END 2017-08-07 14:40 | disposition home or self-care (01) | DRG 371 ==
LOC: EC 12:42 → 4MS4W 16:49
PROVIDERS: ADMIT Internal Medicine; ATTEND Internal Medicine
DX: A04.72 Enterocolitis due to Clostridium difficile, not specified as recurrent (principal); N17.0 Acute kidney failure with tubular necrosis; E87.2 Acidosis; E86.0 Dehydration; K56.7 Ileus, unspecified; J44.9 Chronic obstructive pulmonary disease, unspecified; K57.92 Diverticulitis of intestine, part unspecified, without perforation or abscess without bleeding; N39.0 Urinary tract infection, site not specified; F03.90 Unspecified dementia, unspecified severity, without behavioral disturbance, psychotic disturbance, mood disturbance, and anxiety; A08.4 Viral intestinal infection, unspecified; E78.5 Hyperlipidemia, unspecified; G51.0 Bell's palsy; H04.123 Dry eye syndrome of bilateral lacrimal glands; I12.9 Hypertensive chronic kidney disease with stage 1 through stage 4 chronic kidney disease, or unspecified chronic kidney disease; I25.10 Atherosclerotic heart disease of native coronary artery without angina pectoris; I49.3 Ventricular premature depolarization; I73.00 Raynaud's syndrome without gangrene; I95.1 Orthostatic hypotension; J31.0 Chronic rhinitis; K21.9 Gastro-esophageal reflux disease without esophagitis; K22.4 Dyskinesia of esophagus; N18.3 Chronic kidney disease, stage 3 (moderate); B96.89 Other specified bacterial agents as the cause of diseases classified elsewhere; W19.XXXA Unspecified fall, initial encounter; Z79.52 Long term (current) use of systemic steroids; Z79.82 Long term (current) use of aspirin; Z79.899 Other long term (current) drug therapy; Z90.49 Acquired absence of other specified parts of digestive tract; Z95.5 Presence of coronary angioplasty implant and graft; Z98.42 Cataract extraction status, left eye; Z98.41 Cataract extraction status, right eye; Z88.1 Allergy status to other antibiotic agents; E16.2 Hypoglycemia, unspecified
CPT/HCPCS: 36415; 71046; 74019; 74021; 74177; 76700; 76857; 80048; 80053; 81001; 82150; 82550; 82553; 83605; 83690; 83735; 84478; 84484; 85025; 87040; 87077; 87086; 87186; 94640; 96360; 96361; 99285

== ENCOUNTER → 2017-08-26 | Outpatient (CLI) | payer MEDICARE ==
--- NOTE | 2017-08-26 17:52 | XR ---
EXAMINATION TYPE: XR ribs RT DATE OF EXAM: 08/26/2017 COMPARISON: NONE HISTORY: Right-sided rib pain TECHNIQUE: 4 views FINDINGS: I see no pleural effusion or pneumothorax. Right lung is clear of infiltrate. There are nondisplaced fractures of the right anterior 10th ninth and eighth ribs. IMPRESSION: Multiple lower anterior right rib fractures.
== END | disposition home or self-care (01) ==
LOC: RADXRMAIN 16:52
PROVIDERS: ATTEND Internal Medicine
DX: S22.41XA Multiple fractures of ribs, right side, initial encounter for closed fracture (principal); R07.81 Pleurodynia

== ENCOUNTER → 2017-10-14 | Outpatient (CLI) | payer MEDICARE ==
--- NOTE | 2017-10-14 17:50 | US ---
EXAMINATION TYPE: US abdomen complete DATE OF EXAM: 10/14/2017 COMPARISON: US & CT CLINICAL HISTORY: K85.80 Acute pancreatitis w/o infection. ABD pain, GB removed EXAM MEASUREMENTS: Liver Length: 15.7 cm CBD: 0.4 cm Spleen: 7.9 cm Right Kidney: 9.9 x 5.3 x 4.7 cm Left Kidney: 10.0 x 5.3 x 4.1 cm Difficult scan, pt scanned mostly intercostally Pancreas: Body wnl, head and tail gassed out, 3mm duct visualized Liver: Difficult to visualize, Visualized portions appeared wnl Gallbladder: Surgically absent Evidence for sonographic Major's sign: No CBD: wnl Spleen: Multiple granulomas Right Kidney: wnl, lower pole gassed out Left Kidney: Hypoechoic lesion upper pole= 1.0 x 1.0 x 1.0 cm Upper IVC: wnl Abd Aorta: wnl IMPRESSION: There is 1 cm cortical cyst in the upper pole left kidney. No dilated ducts. No evidence of renal obstruction. No ascites.
== END | disposition home or self-care (01) ==
LOC: RADUSMAIN 16:38
PROVIDERS: ATTEND Internal Medicine
DX: N28.1 Cyst of kidney, acquired (principal); K85.80 Other acute pancreatitis without necrosis or infection
CPT/HCPCS: 76700

== ENCOUNTER → 2017-10-26 | Outpatient (CLI) | payer MEDICARE ==
--- NOTE | 2017-10-26 12:59 | FL ---
MODIFIED SWALLOW / DEGLUTITION STUDY DATE OF EXAM: 10/26/2017 CLINICAL HISTORY: 77-year-old male with Dysphagia. Sensation of acid reflux coming out through the no se and with pain and sensation of food sticking in the chest. TECHNIQUE: Deglutition study is performed utilizing thin liquid barium, honey and nectar thick liqui d barium, barium thick applesauce, and barium coated cracker. Total fluoroscopy time: 1 minute 46 seconds. Total images: None, real-time fluoroscopy support was provided to speech pathology. COMPARISON: None. FINDINGS: The oral and pharyngeal phases show satisfactory initiation and propagation with all modalities teste d. Normal mastication is seen with solid modalities tested. There is no evidence of penetration or aspiration with any modality tested. No nasopharyngeal reflux is identified. There is very mild cerv ical spondylosis causing minimal posterior impressions onto the upper cervical esophagus and hypophar ynx. No cricopharyngeal hypertrophy is seen. No significant pharyngeal residue was appreciated. IMPRESSION: Functional swallow. Please refer to speech therapist notes for further details if necessary. Given th e sensation of food sticking in the chest and report of acid reflux, a conventional esophagram can be considered.
== END | disposition home or self-care (01) ==
LOC: RADFLMAIN 11:27
PROVIDERS: ATTEND Internal Medicine
DX: R13.10 Dysphagia, unspecified (principal)
CPT/HCPCS: 74230

== ENCOUNTER → 2017-11-07 | Outpatient (CLI) | payer MEDICARE ==
--- NOTE | 2017-11-07 12:29 | US ---
EXAMINATION TYPE: US venous doppler duplex LE BI DATE OF EXAM: 11/07/2017 12:10 PM COMPARISON: NONE CLINICAL HISTORY: 77-year-old male M79.662 Pain in Left Leg R22.42 Swelling in Rt. Pain and swelli ng bilateral legs SIDE PERFORMED: Bilateral TECHNIQUE: The lower extremity deep venous system is examined utilizing real time linear array sonog caitlin with graded compression, doppler sonography and color-flow sonography. FINDINGS: VESSELS IMAGED: External Iliac Vein (EIV) Common Femoral Vein Deep Femoral Vein Greater Saphenous Vein * Femoral Vein Popliteal Vein Small Saphenous Vein * Proximal Calf Veins (* superficial vessels) Right Leg: Negative for DVT Left Leg: Negative for DVT IMPRESSION: No evidence for DVT within the bilateral lower extremities imaged from the groin to the upper calves.
== END | disposition home or self-care (01) ==
LOC: RADUSWWP 11:37
PROVIDERS: ATTEND Internal Medicine
DX: M79.662 Pain in left lower leg (principal); M79.661 Pain in right lower leg; R22.43 Localized swelling, mass and lump, lower limb, bilateral; Z88.1 Allergy status to other antibiotic agents; Z88.2 Allergy status to sulfonamides; Z88.8 Allergy status to other drugs, medicaments and biological substances
CPT/HCPCS: 93970

== ENCOUNTER → 2017-11-11 | Outpatient (CLI) | payer MEDICARE ==
[2017-11-11 11:16] LABS: Basophils # (A) 0.1 k/uL (0-0.2); Basophils % (A) 1 %; Eosinophils # (A) 0.9 k/uL (0-0.7); Eosinophils % (A) 12 %; HCT 36.7 % (39.0-53.0); HGB 12.2 gm/dL (13.0-17.5); Lymphocytes # (A) 1.5 k/uL (1.0-4.8); Lymphocytes % (A) 21 %; MCH 30.1 pg (25.0-35.0); MCHC 33.4 g/dL (31.0-37.0); MCV 90.2 fL (80.0-100.0); Mean Platelet Volume 5.9; Monocytes # (A) 0.6 k/uL (0-1.0); Monocytes % (A) 8 %; Neutrophils # (A) 3.9 k/uL (1.3-7.7); Neutrophils % (A) 55 %; Platelet Count 374 k/uL (150-450); RBC 4.07 m/uL (4.30-5.90); RDW 13.1 % (11.5-15.5); WBC 7.2 k/uL (3.8-10.6)
[2017-11-11 11:50] LABS: Albumin 3.5 g/dL (3.5-5.0); Calcium 9.2 mg/dL (8.4-10.2); Potassium 4.3 mmol/L (3.5-5.1); Total Bilirubin 0.4 mg/dL (0.2-1.3)
[2017-11-11 12:17] LABS: PSA Annual Screen 0.4 ng/mL (0.00-4.00)
[2017-11-11 12:40] LABS: Erythrocyte Sedimentation Rate 22 mm/hr (0-15)
== END | disposition home or self-care (01) ==
LOC: LABWHC1 10:38
PROVIDERS: ATTEND Internal Medicine
DX: D64.9 Anemia, unspecified (principal); E55.9 Vitamin D deficiency, unspecified; I82.409 Acute embolism and thrombosis of unspecified deep veins of unspecified lower extremity; M35.9 Systemic involvement of connective tissue, unspecified
CPT/HCPCS: 86255; 86160 ×2; 85379; 86162; 80053; 85652; 86235; 82550; 85025; 86140; 84165; 82306; 86038; 86225; 86334; 86335; 36415; G0103

== ENCOUNTER → 2017-11-16 | Outpatient (CLI) | payer MEDICARE ==
--- NOTE | 2017-11-16 11:22 | FL ---
EXAMINATION: Cervical and Thoracic Esophagram DATE OF EXAM: 11/16/2017 CLINICAL INDICATION: 77-year-old male dysphagia, food sticking in esophagus especially in the morning . Patient reports feeling acid reflux only occurring at night closing his throat in the morning. COMPARISON: Correlation modified barium swallow 10/26/2017. Total Fluoroscopy Time: 1 min 49 seconds Total images: 29 FINDINGS: On the first 2 swallows, there is cathie moderate aspiration with aspirated barium seen extending down into the right lower lobe bronchus. This elicited the cough reflex which the patient reports happens often especially while drinking liquids. The hypopharyngeal anatomy is preserved. The cervical and thoracic portions have a normal course and caliber with very mild tertiary peristals is. The mucosa is normal and no persistent filling defect is encountered. There is a small sliding hiatal hernia. Gastroesophageal reflux could not be elicited during this pro cedure. IMPRESSION: 1. Moderate aspiration down into the right lower lobe bronchus. This elicited the cough reflex which the patient reports happens often especially when drinking liquids. Despite the negative dynamic swal low study on 10/26/2017, consider repeat referral to speech pathology to determine if any protective m aneuvers may help this patient. 2. Small sliding hiatal hernia. Gastroesophageal reflux could not be elicited during the course of th is exam. 3. The patient insists that gastroesophageal reflux occurs only at night. If indicated, endoscopy cou ld be used to assess for any secondary inflammatory changes in the esophagus or hypopharynx related t o chronic reflux.
== END | disposition home or self-care (01) ==
LOC: RADFLWHC 09:48
PROVIDERS: ATTEND Internal Medicine
DX: K44.9 Diaphragmatic hernia without obstruction or gangrene (principal); R05 Cough; Z88.1 Allergy status to other antibiotic agents; Z88.2 Allergy status to sulfonamides; Z88.3 Allergy status to other anti-infective agents; Z88.8 Allergy status to other drugs, medicaments and biological substances
CPT/HCPCS: 74220

== ENCOUNTER 2017-12-07 16:47 | Emergency (ER) | payer OTHER, MEDICARE ==
[2017-12-07 16:52] VITALS: BP 140/78; PULSE 75; RESP 20; TEMP 98
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
== END 2017-12-07 17:18 | disposition home or self-care (01) ==
LOC: EC 16:47
DX: Z04.1 Encounter for examination and observation following transport accident (principal); I25.10 Atherosclerotic heart disease of native coronary artery without angina pectoris; J44.9 Chronic obstructive pulmonary disease, unspecified; K21.9 Gastro-esophageal reflux disease without esophagitis; E78.5 Hyperlipidemia, unspecified; I10 Essential (primary) hypertension; I25.2 Old myocardial infarction; Z85.46 Personal history of malignant neoplasm of prostate; Z95.5 Presence of coronary angioplasty implant and graft; Z79.82 Long term (current) use of aspirin; Z79.899 Other long term (current) drug therapy; Z88.1 Allergy status to other antibiotic agents; V48.5XXA Car driver injured in noncollision transport accident in traffic accident, initial encounter; Y92.093 Driveway of other non-institutional residence as the place of occurrence of the external cause
CPT/HCPCS: 99283

== ENCOUNTER → 2017-12-27 | Outpatient (CLI) | payer MEDICARE ==
[2017-12-27 09:51] LABS: Basophils % (A) 1 %; Eosinophils % (A) 1 %; HCT 38.6 % (39.0-53.0); HGB 12.8 gm/dL (13.0-17.5); Lymphocytes % (A) 12 %; MCH 29.4 pg (25.0-35.0); MCHC 33.2 g/dL (31.0-37.0); MCV 88.3 fL (80.0-100.0); Mean Platelet Volume 5.8; Monocytes # (A) 0.4 k/uL (0-1.0); Monocytes % (A) 5 %; Neutrophils % (A) 82 %; Platelet Count 338 k/uL (150-450); RBC 4.37 m/uL (4.30-5.90); RDW 12.6 % (11.5-15.5); WBC 8.5 k/uL (3.8-10.6)
--- NOTE | 2017-12-27 09:51 | XR ---
EXAMINATION TYPE: XR chest 2V DATE OF EXAM: 12/27/2017 COMPARISON: Chest x-ray August 03, 2017 HISTORY: Bronchitis and cough. TECHNIQUE: Frontal and lateral views of the chest are obtained. FINDINGS: There is suggestion of new faint airspace opacity left lung base silhouetting inferior asp ect left heart border also suspicious on lateral view worrisome for developing lingular infiltrate. Background chronic parenchymal change is redemonstrated. Right lung appears clear. No pleural effusio n or pneumothorax is identified bilaterally. The cardiac silhouette size is within normal limits. T he osseous structures are intact. IMPRESSION: Chronic minimal changes with suspicion for developing lingular acute infiltrate.
== END | disposition home or self-care (01) ==
LOC: LABWHC1 09:03
PROVIDERS: ATTEND Internal Medicine
DX: R91.8 Other nonspecific abnormal finding of lung field (principal)
CPT/HCPCS: 36415; 71046; 85025

== ENCOUNTER 2017-12-30 16:25 | Emergency (ER) | payer MEDICARE ==
[2017-12-30 16:34] VITALS: BP 113/55; PULSE 86; RESP 18; TEMP 98.3
[2017-12-30] MEDS ORDERED: LIDOCAINE 1% INJ 10MG/ML (20 ML MDV) SQ ONE (17:08)
[2017-12-30] MEDS ORDERED: DIPH,PERTUS(ACELL)TETVAC-LF 0.5 ML VIAL IM ONE (17:08)
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
== END 2017-12-30 17:58 | disposition home or self-care (01) ==
LOC: EC 16:25
DX: S51.812A Laceration without foreign body of left forearm, initial encounter (principal); J44.9 Chronic obstructive pulmonary disease, unspecified; I10 Essential (primary) hypertension; I25.10 Atherosclerotic heart disease of native coronary artery without angina pectoris; K21.9 Gastro-esophageal reflux disease without esophagitis; Z79.01 Long term (current) use of anticoagulants; Z79.82 Long term (current) use of aspirin; Z79.899 Other long term (current) drug therapy; Z23 Encounter for immunization; Z88.1 Allergy status to other antibiotic agents; W30.89XA Contact with other specified agricultural machinery, initial encounter; Y93.89 Activity, other specified
CPT/HCPCS: 90715; 99282; 12002; 90471; J2001

== ENCOUNTER → 2018-07-21 | Outpatient (CLI) | payer MEDICARE ==
[2018-07-21 08:19] LABS: Basophils # (A) 0.1 k/uL (0-0.2); Basophils % (A) 1 %; Eosinophils # (A) 0.6 k/uL (0-0.7); Eosinophils % (A) 7 %; HCT 37.5 % (39.0-53.0); HGB 12.7 gm/dL (13.0-17.5); Lymphocytes # (A) 2.3 k/uL (1.0-4.8); Lymphocytes % (A) 25 %; MCH 30.9 pg (25.0-35.0); MCHC 33.8 g/dL (31.0-37.0); MCV 91.6 fL (80.0-100.0); Mean Platelet Volume 5.7; Monocytes # (A) 0.7 k/uL (0-1.0); Monocytes % (A) 8 %; Neutrophils # (A) 5.3 k/uL (1.3-7.7); Neutrophils % (A) 58 %; Platelet Count 329 k/uL (150-450); RBC 4.09 m/uL (4.30-5.90); RDW 13.8 % (11.5-15.5); WBC 9.2 k/uL (3.8-10.6)
[2018-07-21 09:28] LABS: Erythrocyte Sedimentation Rate 8 mm/hr (0-15)
[2018-07-21 12:10] LABS: Thyroid Peroxidase Antibodies <28.0 U/mL (0.0-60.0)
[2018-07-21 12:40] LABS: Creatine Kinase 84 U/L (35-257)
[2018-07-21 12:41] LABS: ALT 26 U/L (10-49); AST 29 U/L (14-35); C Reactive Protein <0.4 mg/dL (0.0-0.8); Cholesterol 181 mg/dL (0-200); LDL Cholesterol,Calculated 100.8 mg/dL (0.0-131.0)
== END | disposition home or self-care (01) ==
LOC: LABWHC1 07:35
PROVIDERS: ATTEND Internal Medicine
DX: I12.9 Hypertensive chronic kidney disease with stage 1 through stage 4 chronic kidney disease, or unspecified chronic kidney disease (principal); N18.3 Chronic kidney disease, stage 3 (moderate); E78.5 Hyperlipidemia, unspecified; E03.9 Hypothyroidism, unspecified; C61 Malignant neoplasm of prostate
CPT/HCPCS: 36415; 80061; 82272; 82550; 84439; 84443; 84450; 84460; 85025; 85652; 86140; 86376; 86800

== ENCOUNTER → 2018-08-23 | Outpatient (CLI) | payer MEDICARE ==
[2018-08-23 17:48] LABS: T4, Free (Free Thyroxine) 1.3 ng/dL (0.80-1.80)
== END ==
LOC: LABWHC1 09:20
PROVIDERS: ATTEND Internal Medicine
DX: E03.9 Hypothyroidism, unspecified (principal); J45.909 Unspecified asthma, uncomplicated; E87.8 Other disorders of electrolyte and fluid balance, not elsewhere classified
CPT/HCPCS: 36415; 84439; 84443

== ENCOUNTER → 2018-10-26 | Outpatient (CLI) | payer MEDICARE ==
[2018-10-26 16:06] LABS: African American GFR (CKD) 50.2 (60.0-200.0); Anion Gap 7.9 mmol/L (4.00-12.00); BUN/Creat Ratio 16.67 Ratio (12.00-20.00); Calcium 8.9 mg/dL (8.7-10.3); Carbon Dioxide 25.1 mmol/L (21.6-31.8); Magnesium 1.9 mg/dL (1.5-2.4); Potassium 4.2 mmol/L (3.5-5.5)
== END | disposition home or self-care (01) ==
LOC: LABWHC1 07:50
PROVIDERS: ATTEND Internal Medicine
DX: E87.8 Other disorders of electrolyte and fluid balance, not elsewhere classified (principal); M62.838 Other muscle spasm
CPT/HCPCS: 36415; 80048; 83735

== ENCOUNTER → 2019-05-03 | Outpatient (CLI) | payer MEDICARE ==
[2019-05-03 08:54] LABS: Basophils # (A) 0.1 k/uL (0-0.2); Basophils % (A) 1 %; Eosinophils # (A) 0.2 k/uL (0-0.7); Eosinophils % (A) 2 %; HCT 38.4 % (39.0-53.0); HGB 12.9 gm/dL (13.0-17.5); Lymphocytes # (A) 2.2 k/uL (1.0-4.8); Lymphocytes % (A) 21 %; MCHC 33.7 g/dL (31.0-37.0); MCV 92.2 fL (80.0-100.0); Mean Platelet Volume 6.5; Monocytes # (A) 0.7 k/uL (0-1.0); Monocytes % (A) 7 %; Neutrophils # (A) 7.2 k/uL (1.3-7.7); Neutrophils % (A) 68 %; Platelet Count 320 k/uL (150-450); RBC 4.17 m/uL (4.30-5.90); RDW 12.9 % (11.5-15.5); WBC 10.6 k/uL (3.8-10.6)
[2019-05-03 09:45] LABS: Erythrocyte Sedimentation Rate 11 mm/hr (0-15)
[2019-05-03 16:21] LABS: ALT 24 U/L (10-49); AST 27 U/L (14-35); African American GFR (CKD) 49.9 (60.0-200.0); Albumin/Globulin Ratio 2.56 (1.60-3.17); Alkaline Phosphatase 80 U/L (41-126); BUN/Creat Ratio 13.33 Ratio (12.00-20.00); C Reactive Protein <0.4 mg/dL (0.0-0.8); Carbon Dioxide 27.9 mmol/L (21.6-31.8); Chloride 105 mmol/L (96-109); Chol/HDL Ratio 2.44; Cholesterol 166 mg/dL (0-200); Creatine Kinase 64 U/L (35-257); Globulin 1.6 g/dL (1.6-3.3); Glucose 79 mg/dL (70-110); LDL Cholesterol,Calculated 77.2 mg/dL (0.0-131.0); Magnesium 1.8 mg/dL (1.5-2.4); Potassium 4.1 mmol/L (3.5-5.5); Sodium 140 mmol/L (135-145); Total Bilirubin 0.4 mg/dL (0.3-1.2); Total Protein 5.7 g/dL (6.2-8.2)
[2019-05-03 17:57] LABS: Creatinine,Urine Random 133.6 mg/dL
[2019-05-03 18:04] LABS: Total Protein,Urine Random 10.2 mg/dL (0.0-13.5)
== END | disposition home or self-care (01) ==
LOC: LABWHC1 07:48
PROVIDERS: ATTEND Internal Medicine
DX: N18.3 Chronic kidney disease, stage 3 (moderate) (principal); C61 Malignant neoplasm of prostate; I10 Essential (primary) hypertension; E78.5 Hyperlipidemia, unspecified; E03.9 Hypothyroidism, unspecified; E55.9 Vitamin D deficiency, unspecified
CPT/HCPCS: 36415; 80053; 80061; 82306; 82550; 82570; 83735; 84100; 84153; 84156; 84439; 84443; 85025; 85652; 86140

== ENCOUNTER 2019-11-22 01:24 | Inpatient (IN) | payer MEDICARE ==
[2019-11-22] MEDS ORDERED: MORPHINE SULFATE 2 MG/ML SYRINGE IVP STA (01:54)
[2019-11-22] MEDS ORDERED: SODIUM CHLORIDE 0.9% 500 ML 500 ML IV STA (01:54)
[2019-11-22] MEDS ORDERED: ONDANSETRON 4 MG/2 ML VIAL IVP STA (01:54)
[2019-11-22 02:11] LABS: Basophils # (A) 0.1 k/uL (0-0.2); Basophils % (A) 0 %; Eosinophils # (A) 0.1 k/uL (0-0.7); Eosinophils % (A) 1 %; HCT 42.6 % (39.0-53.0); HGB 14.2 gm/dL (13.0-17.5); Lymphocytes # (A) 1.7 k/uL (1.0-4.8); Lymphocytes % (A) 14 %; MCH 30.5 pg (25.0-35.0); MCHC 33.2 g/dL (31.0-37.0); MCV 91.9 fL (80.0-100.0); Mean Platelet Volume 6.5; Monocytes # (A) 0.5 k/uL (0-1.0); Monocytes % (A) 4 %; Neutrophils # (A) 9.8 k/uL (1.3-7.7); Neutrophils % (A) 79 %; Platelet Count 353 k/uL (150-450); RBC 4.64 m/uL (4.30-5.90); RDW 14.2 % (11.5-15.5); WBC 12.4 k/uL (3.8-10.6)
--- NOTE | 2019-11-22 02:17 | ED ---
Abdominal Pain HPI - General Chief Complaint: Abdominal Pain Stated Complaint: Abdominal Pain Time Seen by Provider: 11/22/19 01:49 Source: patient Mode of arrival: ambulatory Limitations: no limitations - History of Present Illness Initial Comments: 79-year-old male patient presents to the emergency department today for evaluation of upper abdominal pain. Patient states pain started earlier today. States he did become nauseated and did have one episode of vomiting this evening. Patient states that the pain is quite severe and is worse when he lies down. He states he has been able to eat and drink today. States he did have 2 small bowel movements. He is urinating without difficulty. He denies any fever or chills. Denies history of abdominal surgery. States he has had radiation for prostate cancer. Patient denies any recent rash, cough, shortness of breath, chest pain, back pain, numbness, tingling, dizziness, weakness, hematuria, dys uria, urinary urgency, urinary frequency, headache, visual changes, or any other complaints. - Related Data Home Medications Medication Instructions Recorded Confirmed Aclidinium [place] [Tudorza 1 puff PO BID PRN 05/27/17 08/03/17 Pressair] Albuterol Inhaler (Mhu) [Ventolin 1 - 2 puff INHALATION Q6HR PRN 05/27/17 08/03/17 Hfa Inhaler (Mhu)] Aspirin [Adult Low Dose Aspirin EC] 81 mg PO DAILY@1200 05/27/17 08/03/17 Atorvastatin [Lipitor] 80 mg PO DAILY@1200 05/27/17 08/03/17 Fluticasone/Salmeterol [Advair 1 inhalation PO BID PRN 05/27/17 08/03/17 250-50 Diskus] Ipratropium/Albuterol Sulfate 1 puff INHALATION QID PRN 05/27/17 08/03/17 [Combivent Respimat Inhaler] Irbesartan [Avapro] 150 mg PO DAILY@1200 05/27/17 08/03/17 Metoprolol Tartrate 25 mg PO BID-W/MEALS 05/27/17 08/03/17 Montelukast [Singulair] 10 mg PO HS 05/27/17 08/03/17 Multivitamins, Thera [Multivitamin 1 tab PO W/SUPPER 05/27/17 08/03/17 (formulary)] Theophylline 12 Hour [Silvio-Dur] 300 mg PO BID 05/27/17 08/03/17 Pantoprazole Sodium 40 mg PO BID 08/03/17 08/03/17 Previous Rx's Medication Instructions Recorded Artificial Tears-Hypromellose 1 drops LEFT EYE QID PRN 90 Days 08/07/17 [Artificial Tear Drops] #1 bottle Atorvastatin [Lipitor] 80 mg PO DAILY tab 08/07/17 Sulfamethox-Tmp 400-80Mg [Bactrim 1 each PO BID 3 Days #6 tab 08/07/17 SS 400-80 mg] predniSONE 5 mg PO DAILY tab 08/07/17 Allergies Allergy/AdvReac Type Severity Reaction Status Date / Time ciprofloxacin [From Cipro] Allergy Rash/Hives Verified 11/22/19 01:47 Review of Systems ROS Statement: Those systems with pertinent positive or pertinent negative responses have been documented in the HPI. ROS Other: All systems not noted in ROS Statement are negative. Past Medical History Past Medical History: Coronary Artery Disease (CAD), COPD, GERD/Reflux, Hyperlipidemia, Hypertension Additional Past Medical History / Comment(s): dysphagia, states some memory loss History of Any Multi-Drug Resistant Organisms: None Reported Past Surgical History: Cholecystectomy, Heart Catheterization With Stent Additional Past Surgical History / Comment(s): corbin cataracts, EGD Past Anesthesia/Blood Transfusion Reactions: No Reported Reaction Date of Last Stent Placement:: unknown Past Psychological History: No Psychological Hx Reported Smoking Status: Never smoker Past Alcohol Use History: None Reported Past Drug Use History: None Reported - Past Family History Mother Family Medical History: Cancer Father Family Medical History: Cancer General Exam Limitations: no limitations General appearance: alert, in no apparent distress, other (This is a well- developed, well-nourished elderly male patient in no acute distress. Vital signs upon presentation are temperature 97.6F, pulse 82, respirations 18, blood pressure 159/87, pulse ox 99% on room air.) Eye exam: Present: normal appearance, PERRL, EOMI. Absent: scleral icterus, conjunctival injection, periorbital swelling ENT exam: Present: normal exam, normal oropharynx, mucous membranes moist Respiratory exam: Present: normal lung sounds bilaterally. Absent: respiratory distress, wheezes, rales, rhonchi, stridor Cardiovascular Exam: Present: regular rate, normal rhythm, normal heart sounds. Absent: systolic murmur, diastolic murmur, rubs, gallop, clicks GI/Abdominal exam: Present: soft, tenderness (Right upper quadrant left upper quadrant tenderness), normal bowel sounds. Absent: distended, guarding, rebound, rigid Neurological exam: Present: alert, oriented X3, CN II-XII intact Psychiatric exam: Present: normal affect, normal mood Skin exam: Present: warm, dry, intact, normal color. Absent: rash Course Vital Signs 11/22/19 01:42 Temperature 97.6 F Pulse Rate 82 Respiratory 18 Rate Blood Pressure 159/87 O2 Sat by Pulse 99 Oximetry Medical Decision Making - Medical Decision Making 79-year-old male patient presents to the emergency department today for evaluation of upper abdominal pain and vomiting. Physical examination did reveal upper abdominal tenderness. He has normal vital signs. Labs reviewed and did reveal elevated lactic acid at 2.6. CT abdomen and pelvis was obtained and shows evidence for possible partial small bowel obstruction versus ileus. Patient will be admitted to the hospital placed on bowel rest. Nausea medications will be provided. I did discuss findings and results with the patient, he is agreeable. - Lab Data Result diagrams: 11/22/19 02:05 11/22/19 02:05 Lab Results 11/22/19 11/22/19 11/22/19 Range/Units 02:05 02:05 02:05 WBC 12.4 H (3.8-10.6) k/uL RBC 4.64 (4.30-5.90) m/uL Hgb 14.2 (13.0-17.5) gm/dL Hct 42.6 (39.0-53.0) % MCV 91.9 (80.0-100.0) fL MCH 30.5 (25.0-35.0) pg MCHC 33.2 (31.0-37.0) g/dL RDW 14.2 (11.5-15.5) % Plt Count 353 (150-450) k/uL Neutrophils % 79 % Lymphocytes % 14 % Monocytes % 4 % Eosinophils % 1 % Basophils % 0 % Neutrophils # 9.8 H (1.3-7.7) k/uL Lymphocytes # 1.7 (1.0-4.8) k/uL Monocytes # 0.5 (0-1.0) k/uL Eosinophils # 0.1 (0-0.7) k/uL Basophils # 0.1 (0-0.2) k/uL PT 9.4 (9.0-12.0) sec INR 0.9 (<1.2) APTT 19.4 L (22.0-30.0) sec Sodium 135 L (137-145) mmol/L Potassium 4.8 (3.5-5.1) mmol/L Chloride 104 (98-107) mmol/L Carbon Dioxide 23 (22-30) mmol/L Anion Gap 8 mmol/L BUN 21 H (9-20) mg/dL Creatinine 1.42 H (0.66-1.25) mg/dL Est GFR (CKD-EPI)AfAm 53 (>60 ml/min/1.73 sqM) Est GFR (CKD-EPI)NonAf 46 (>60 ml/min/1.73 sqM) Glucose 112 H (74-99) mg/dL Plasma Lactic Acid Lawson (0.7-2.0) mmol/L Calcium 9.7 (8.4-10.2) mg/dL Total Bilirubin 0.7 (0.2-1.3) mg/dL AST 32 (17-59) U/L ALT 22 (4-49) U/L Alkaline Phosphatase 89 (38-126) U/L Total Protein 7.2 (6.3-8.2) g/dL Albumin 4.5 (3.5-5.0) g/dL Amylase 159 H (30-110) U/L Lipase 543 H (23-300) U/L 11/22/19 Range/Units 02:05 WBC (3.8-10.6) k/uL RBC (4.30-5.90) m/uL Hgb (13.0-17.5) gm/dL Hct (39.0-53.0) % MCV (80.0-100.0) fL MCH (25.0-35.0) pg MCHC (31.0-37.0) g/dL RDW (11.5-15.5) % Plt Count (150-450) k/uL Neutrophils % % Lymphocytes % % Monocytes % % Eosinophils % % Basophils % % Neutrophils # (1.3-7.7) k/uL Lymphocytes # (1.0-4.8) k/uL Monocytes # (0-1.0) k/uL Eosinophils # (0-0.7) k/uL Basophils # (0-0.2) k/uL PT (9.0-12.0) sec INR (<1.2) APTT (22.0-30.0) sec Sodium (137-145) mmol/L Potassium (3.5-5.1) mmol/L Chloride (98-107) mmol/L Carbon Dioxide (22-30) mmol/L Anion Gap mmol/L BUN (9-20) mg/dL Creatinine (0.66-1.25) mg/dL Est GFR (CKD-EPI)AfAm (>60 ml/min/1.73 sqM) Est GFR (CKD-EPI)NonAf (>60 ml/min/1.73 sqM) Glucose (74-99) mg/dL Plasma Lactic Acid Lwason 2.6 H* (0.7-2.0) mmol/L Calcium (8.4-10.2) mg/dL Total Bilirubin (0.2-1.3) mg/dL AST (17-59) U/L ALT (4-49) U/L Alkaline Phosphatase (38-126) U/L Total Protein (6.3-8.2) g/dL Albumin (3.5-5.0) g/dL Amylase (30-110) U/L Lipase (23-300) U/L - Radiology Data Radiology results: report reviewed, image reviewed CT abdomen and pelvis with contrast was obtained. Report was reviewed in its entirety. Impression by Dr. Garrett shows some dilated small bowel loops which are increased compared to old computed tomography scan and suggestive of partial mechanical obstruction or localized ileus. Moderate sigmoid diverticulosis without diverticulitis. Disposition Clinical Impression: Partial small bowel obstruction Disposition: ADMITTED IP TO THIS [facility] Condition: Serious Referrals: Kevin Griffin MD [Primary Care Provider] - 1-2 days Decision to Admit Reason: Admit from EC Decision Date: 11/22/19 Decision Time: 03:01
[2019-11-22 02:21] LABS: Albumin 4.5 g/dL (3.5-5.0); Calcium 9.7 mg/dL (8.4-10.2); Total Bilirubin 0.7 mg/dL (0.2-1.3); Total Protein 7.2 g/dL (6.3-8.2)
[2019-11-22 02:22] LABS: Potassium 4.8 mmol/L (3.5-5.1)
[2019-11-22 02:34] LABS: INR 0.9 (<1.2)
[2019-11-22 02:35] LABS: Partial Thromboplastin Time 19.4 sec (22.0-30.0); Prothrombin Time 9.4 sec (9.0-12.0)
[2019-11-22] MEDS ORDERED: SODIUM CHLORIDE 0.9% 500 ML 500 ML IV ONE (02:44)
--- NOTE | 2019-11-22 02:57 | CT ---
EXAMINATION TYPE: CT abdomen pelvis w con DATE OF EXAM: 11/22/2019 COMPARISON: 08/03/2017 HISTORY: EPIGASTRIC PAIN CT DLP: 926.5 mGycm Automated exposure control for dose reduction was used. CONTRAST: Performed with IV Contrast, patient injected with 80 mL of Isovue 300. Lung bases are clear. There is no pleural effusion. There is 1 cm calcified granuloma in the left low er lobe. There are numerous calcified granulomata in the spleen. There are clips from cholecystectomy . Bile ducts are not dilated. There is no evidence of pancreatic mass. Stomach is intact. Liver shows no focal defect. There is no adrenal mass. Kidneys show satisfactory contrast opacificati on. There is no hydronephrosis. Ureters are not dilated. There is no retroperitoneal adenopathy. Blad madhu distends smoothly. There is enlarged prostate that measures 5.4 cm. There is no inguinal hernia. There are numerous sigmoid diverticula. I see no sign of diverticulitis. Appendix is posterior and ap pears normal. There are some fluid-filled distended loops of small bowel in the mid abdomen. These me asure up to 3.5 cm. The large bowel is not dilated. Terminal ileum is not dilated. Transition point i s not identified. The proximal small bowel has fairly normal size. There is no mesenteric edema. There is no ascites. There is no sign of free air. Lumbar vertebra have normal alignment. Posterior elements are intact. Bony pelvis is intact. Disc spa marissa are fairly normal. There is no evidence of a fracture. IMPRESSION: There are some dilated mid small bowel loops which are increased compared to old CT scan and suggesti ve of partial mechanical obstruction or localized ileus. Moderate sigmoid diverticulosis without diverticulitis.
[2019-11-22] MEDS ORDERED: NALOXONE 0.4 MG/ML 1 ML VIAL IV PRN (03:03)
[2019-11-22] MEDS ORDERED: ONDANSETRON 4 MG/2 ML VIAL IVP PRN (03:03)
[2019-11-22] MEDS ORDERED: SODIUM CHLORIDE 0.9% 1,000 ML IV SCH (03:15)
[2019-11-22 04:03] LABS: Appearance,Urine Clear (Clear); Bilirubin,Urine Negative (Negative); Blood,Urine Negative (Negative); Color,Urine Yellow; Glucose,Urine (UA) Negative (Negative); Ketones,Urine Negative (Negative); Leukocyte Esterase,Urine Large (Negative); Mucus,Urine Occasional /hpf; Nitrite,Urine Negative (Negative); Protein,Urine Negative (Negative); RBC,Urine 1 /hpf (0-5); Specific Gravity,Urine 1.032 (1.001-1.035); Urobilinogen,Urine <2.0 mg/dL (<2.0); WBC,Urine 60 /hpf (0-5)
[2019-11-22] MEDS: MORPHINE SULFATE 4 MG/ML SYRINGE IV PRN (04:54)
[2019-11-22] MEDS: DEXTROSE 5%-0.9% NACL 1,000 ML IV SCH (11:51)
[2019-11-22] MEDS ORDERED: ACETAMINOPHEN TAB 325 MG TAB PO PRN (13:06)
[2019-11-22] MEDS ORDERED: ARTIFICIAL TEARS-HYPROMELLOSE DROPS 15 ML BTL LEFT EYE PRN (13:06)
[2019-11-22] MEDS ORDERED: ENALAPRILAT 1.25 MG/ML 1 ML VIAL IVP PRN (13:10)
[2019-11-22] MEDS: PANTOPRAZOLE 40 MG/10 ML VIAL IVP SCH (13:35)
[2019-11-22] MEDS ORDERED: bisacodyL 10 MG SUPP RECTAL STA (13:40)
--- NOTE | 2019-11-22 13:40 | P.HPIM ---
History of Present Illness H&P Date: 11/22/19 (Small bowel obstruction) Chief Complaint: Progressive abdominal pain with the level IX/X severe lost evening. This is a dictation history and physical by Dr. Griffin date of service 11/22/2019. Patient presented to the emergency room with a chief complaint abdominal pain was progressively worsening in the last 24 however has been for one week prior to the event. History of present illness: The patient presented to the emergency room because he could not handle the pain with the pain severity 9-1/2 over 10 as he stated and he becomes nauseated but he did not vomit and the pain was severe but he had very minor bowel movement. He denied any difficulty in urination no fever no chills no recent history of abdominal surgery he had a previous history of prostate cancer with enlargement by the CAT scan done in the ER and and he treated with radiation therapy. He denied any recent rashes, fevers chills shortness of breath chest pain back pain tingling dizziness weakness hematuria or dysuria or urinary urgency or frequency however patient has enlarged prostate he has no visual changes or headache. Medication: Patient has been seen in the past by pulmonary physician Dr. Schreiber, GI by Dr. Johan Lozano. He has been seen by cardiology by Dr. Dunne also neurology by Dr. Colindres, also rheumatology by Dr. Spencer. Current list of medication He is on inhalation therapy one puff twice a day. To Dr. ruby. Also he used including H if a inhaler and aspirin low-dose he also on Advair discus 5250/50 one inhalation twice a day. Combivent respite inhaler 1 puff 4 times a day, Avapro 150 mg daily, metoprolol tartrate 25 mg twice a day, montelukast "" Singulair 10 mg at at bedtime next multivitamin once a day with supper and theophylline 12 are lower. There 300 mg twice a day and he is also on pantoprazole 40 mg twice a day. He is on atorvastatin 80 mg once a day. Review of system mainly GI symptoms with abdominal pain in the epigastric area and progressively worsening and tender brought him to the emergency room. Other review of system was noncontributory 14 point was evaluated. Past medical history he had history of coronary artery disease COPD GERD disease hyperlipidemia hypertension, Memory loss and occasional dysphagia. He had heart catheterization with a stent. He had bilateral cataract and EGD by Dr. Dusty Lozano. Never smoked, no alcohol intake. Family history mother cancer father cancer. On examination patient was conscious alert oriented expressed his upper abdominal pain with the range of 9-1/2 over 10. Occasional nausea but no vomiting CAT scan of the abdomen indicating small bowel level fluid level with the underlying small bowel obstruction: Was okay. HEENT head was normocephalic and atraumatic he had a history of facial pulsating on the left side was questionable stroke. Neck was supple no JVD no thyromegaly no lymphadenopathy trachea midline. Chest is clear to auscultation and percussion no wheezes no rhonchi's Cardiac heart catheterization on May 1807 with angioplasty and 1 stent. Abdomen positive tenderness in the upper quadrant in association with small bowel obstruction no bowel sound. Extremities no edema and positive pulses. Neuro exam: Patient is ambulatory and no evidence of DVT. Assessment: Small bowel obstruction etiology unclear. History of multiple medical problems including prostatic CA in the past treated with radiation therapy Chronic kidney disease stage III. Dry eye syndrome. Hypertension. 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 Gastroesophageal reflux disease with history of endoscopy by Dr. Dusty Lozano. Hypothyroidism hyperlipidemia. Seasonal ALLERGY Raynaud's syndrome without gangrene. Patient had chemotherapy of the prostate grade [address] Toledo radiation oncologist in December 2013. Plan Nothing by mouth except ice chips. Gastroenterology consultation Monitor the lipase and a small bowel follow-through x-ray to rule out obstructio n Consultation with the surgeon if no resolution to the small bowel obstruction with the bowel resting. Clinical resume the thyroid medication with the underlying history of hypothyroidism. Patient with dementia early cognitive function impairment. At this time he is nothing by mouth with ice chips. Also probable obtaining small bowel series tomorrow for for further evaluation. Patient ambulatory and advised to continue ambulation Eulalia with reversal of the small bowel obstruction. Past Medical History Past Medical History: Coronary Artery Disease (CAD), COPD, GERD/Reflux, Hyperlipidemia, Hypertension Additional Past Medical History / Comment(s): dysphagia, states some memory loss History of Any Multi-Drug Resistant Organisms: None Reported Past Surgical History: Cholecystectomy, Heart Catheterization With Stent Additional Past Surgical History / Comment(s): corbin cataracts, EGD Past Anesthesia/Blood Transfusion Reactions: No Reported Reaction Date of Last Stent Placement:: unknown Past Psychological History: No Psychological Hx Reported Additional Psychological History / Comment(s): memory loss Smoking Status: Never smoker Past Alcohol Use History: None Reported Past Drug Use History: None Reported - Past Family History Mother Family Medical History: Cancer Father Family Medical History: Cancer Medications and Allergies Home Medications Medication Instructions Recorded Confirmed Type Aspirin [Adult Low Dose Aspirin EC] 81 mg PO DAILY@1200 05/27/17 11/22/19 History Metoprolol Tartrate 25 mg PO BID@1200,1700 05/27/17 11/22/19 History Montelukast [Singulair] 10 mg PO DAILY@1200 05/27/17 11/22/19 History Multivitamins, Thera [Multivitamin 1 tab PO DAILY@1200 05/27/17 11/22/19 History (formulary)] Theophylline 12 Hour [Silvio-Dur] 300 mg PO BID@1200,1700 05/27/17 11/22/19 History Acetaminophen [Tylenol] 650 mg PO DAILY PRN 11/22/19 11/22/19 History Artificial Tears-Hypromellose 1 drops LEFT EYE BID PRN 11/22/19 11/22/19 History [Artificial Tear Drops] Atorvastatin [Lipitor] 80 mg PO HS 11/22/19 11/22/19 History Cyanocobalamin (Vitamin B-12) 1,000 mcg PO DAILY@1200 11/22/19 11/22/19 History [Vitamin B-12] Donepezil HCl [Aricept] 5 mg PO DAILY@1700 11/22/19 11/22/19 History Famotidine [Pepcid] 20 mg PO BID 11/22/19 11/22/19 History Levothyroxine Sodium [Synthroid] 50 mcg PO DAILY@0800 11/22/19 11/22/19 History Losartan Potassium [Cozaar] 100 mg PO DAILY@1200 11/22/19 11/22/19 History Polyethylene Glycol 3350 [Miralax] 17 gm PO DAILY PRN 11/22/19 11/22/19 History predniSONE 5 mg PO Q48H 11/22/19 11/22/19 History Allergies Allergy/AdvReac Type Severity Reaction Status Date / Time ciprofloxacin [From Cipro] Allergy Rash/Hives Verified 11/22/19 09:24 Physical Exam Vitals: Vital Signs Temp Pulse Pulse Resp BP BP Pulse Ox 11/22/19 07:45 18 11/22/19 07:00 97.6 F 75 18 145/84 100 11/22/19 03:27 97.6 F 58 L 18 138/74 100 11/22/19 03:10 60 18 140/80 100 11/22/19 01:42 97.6 F 82 18 159/87 99 Intake and Output 11/21/19 11/22/19 11/22/19 22:59 06:59 14:59 Intake Total 450 Balance 450 Intake: Intake, IV Titration 450 Amount Dextrose 5%-0.9% NaCl 1, 450 000 ml @ 75 mls/hr IV . [id number] [facility] Rx#:[id number] Other: Voiding Method Toilet # Voids 1 1 Weight 72.575 kg Results CBC & Chem 7: 11/22/19 02:05 11/22/19 02:05 Labs: Abnormal Lab Results - Last 24 Hours (Table) 11/22/19 11/22/19 11/22/19 Range/Units 02:05 02:05 02:05 WBC 12.4 H (3.8-10.6) k/uL Neutrophils # 9.8 H (1.3-7.7) k/uL APTT 19.4 L (22.0-30.0) sec Sodium 135 L (137-145) mmol/L BUN 21 H (9-20) mg/dL Creatinine 1.42 H (0.66-1.25) mg/dL Glucose 112 H (74-99) mg/dL Plasma Lactic Acid Lawson (0.7-2.0) mmol/L Amylase 159 H (30-110) U/L Lipase 543 H (23-300) U/L Ur Leukocyte Esterase (Negative) Urine WBC (0-5) /hpf Urine WBC Clumps (None) /hpf Urine Mucus (None) /hpf 11/22/19 11/22/19 Range/Units 02:05 03:51 WBC (3.8-10.6) k/uL Neutrophils # (1.3-7.7) k/uL APTT (22.0-30.0) sec Sodium (137-145) mmol/L BUN (9-20) mg/dL Creatinine (0.66-1.25) mg/dL Glucose (74-99) mg/dL Plasma Lactic Acid Lawson 2.6 H* (0.7-2.0) mmol/L Amylase (30-110) U/L Lipase (23-300) U/L Ur Leukocyte Esterase Large H (Negative) Urine WBC 60 H (0-5) /hpf Urine WBC Clumps Few H (None) /hpf Urine Mucus Occasional H (None) /hpf Microbiology - Last 24 Hours (Table) 11/22/19 03:51 Urine Culture - Preliminary Urine,Voided Thrombosis Risk Factor Assmnt - Choose All That Apply Any of the Below Risk Factors Present?: Yes Each Factor Represents 1 point: Medical pt on bed rest Other Risk Factors: Yes Each Risk Factor Represents 3 Points: Age 75 years or older Thrombosis Risk Factor Assessment Total Risk Factor Score: 4 Thrombosis Risk Factor Assessment Level: Moderate Risk
[2019-11-23] MEDS: DEXTROSE 5%-0.9% NACL 1,000 ML IV SCH ×3 (06:56→22:02)
--- NOTE | 2019-11-23 07:27 | XR ---
EXAMINATION TYPE: XR abdomen 2V DATE OF EXAM: 11/23/2019 HISTORY: Pain. Technique: 2 views of the abdomen are submitted. Comparison: 08/05/2017 Findings: There is no convincing evidence of pneumoperitoneum. The Bowel gas pattern is nonspecific and nonobstructive. No sizable air-fluid levels are seen. No mass effects are noted. No renal calcifications are identified. Contrast is noted within the urinary bladder. IMPRESSION: 1. Nonspecific nonobstructive bowel gas pattern
[2019-11-23] MEDS: LEVOTHYROXINE 50 MCG TAB PO SCH (08:15)
[2019-11-23] MEDS: PANTOPRAZOLE 40 MG/10 ML VIAL IVP SCH (08:21)
[2019-11-23] MEDS ORDERED: MAGNESIUM CITRATE 296 ML BOTTLE PO ONE (14:30)
[2019-11-23 15:09] VITALS: BMI 23.6
--- NOTE | 2019-11-23 22:52 | PN ---
PROGRESS NOTE DATE OF SERVICE: 11/23/2019 The patient is an 79-year-old white male, . DATA: FULL CODE. Height 5 feet 9 inches, weight 72.575 kg. BSA 1.88 m2, BMI 23.6 kg/m2. ALLERGY to CIPROFLOXACIN. The patient was seen today and evaluated. He stated that he felt better and he had a small bowel movement today. He is ambulatory and there is no need for anticoagulant. VITAL SIGNS: His temperature is 97.9 degrees Fahrenheit orally, his pulse 70 per minute, regular, respiratory rate 18 per minute, nonlabored. His blood pressure 120/66 with mean arterial pressure 84. On room air his oxygen is 97%. His last laboratory was done on 11/22/2019. We requested serum lipase to be done today. Initially his lactic acid was 2.6. With hydration it went down to 1.4. His serum amylase was 543. Today it was down to 332; not normalizing yet. His urine analysis indicates urinary tract infection with urine leukocyte esterase large. His coronavirus PCR was not detected. His urine culture grew group D Enterococcus with very low colonies, 10 to 49. The patient is already on an antibiotic. However, I do not have any sensitivity. The patient is on ceftriaxone 1 gram every 12 hours. On current examination, the patient is conscious, alert, oriented. However, he has intermittent forgetfulness. The neck was supple and no JVD. No thyromegaly. No lymphadenopathy. The head was normocephalic, atraumatic. Pupils were equal, reactive. The patient is able to eat and swallow. 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 The patient has underlying Raynaud's phenomenon with blanching of the color of the hands and feet in cold weather. He has underlying pulmonary disease with asthma and has been seen by Dr. Gaspar and he is on prednisone at home. Chest was clear to auscultation and percussion. The heart was in regular sinus rhythm. The abdomen today was soft. He still has tenderness in the mid upper abdomen, but no nausea or vomiting. Bowel sounds have started to be heard. His lipase is still mildly elevated. EXTREMITIES: No edema and positive pulses. His x-ray of the abdomen that was done today indicates nonspecific, nonobstructive bowel gas pattern. Prior to that, on admission he had CT scan of the abdomen and pelvis, which is indicating that previously he had cholecystectomy. No adrenal mass. The kidney was satisfactory contrast opacification. No hydronephrosis. Ureter not dilated. He has no retroperitoneal adenopathy and the bladder was distended smoothly. He had an enlarged prostate measuring 5.4 cm. The patient, however, had prostatic cancer that has been treated with radiation therapy by Dr. Desai, 35 sessions. He has no inguinal hernia. He had numerous sigmoid diverticula but no diverticulitis. The appendix appeared to be normal. Large bowel not dilated. Terminal ileum not dilated. Transition point not identified. Proximal small bowel was fairly normal size. He has no mesenteric edema, no sign of free air. He had lumbar vertebra normal alignment and normal disc space of the spine; no evidence of fracture. However, the impression indicates that he had a small bowel loop which increased compared to his old CT scan, suggestive of partial mechanical obstruction or ileus. The patient presented with symptoms of abdominal pain and no bowel movement. He has moderate sigmoid diverticulosis without diverticulitis. That was on the admission done in the ER with comparison to the previous CT scan that was done on 08/03/17. ASSESSMENT: The patient has a small bowel obstruction with elevated lipase and the bowel sounds start to appear sluggish. The abdominal pain is partially improved. The patient is ambulatory and will continue ambulation. PLAN: Will continue checking the lipase tomorrow and check him clinically as well with obtaining CBC and chemistry in the morning. If he is tolerating the full liquid diet which is initiated today, we will be advancing the diet and possibly discharge him home. MMODL / IJN: [id number] /
[2019-11-24] MEDS: MORPHINE SULFATE 4 MG/ML SYRINGE IV PRN (01:35)
[2019-11-24 08:22] VITALS: BP 149/80; PULSE 102; RESP 18; TEMP 98.2
[2019-11-24] MEDS: PANTOPRAZOLE 40 MG/10 ML VIAL IVP SCH (08:29)
[2019-11-24] MEDS: LEVOTHYROXINE 50 MCG TAB PO SCH (08:29)
[2019-11-24] MEDS ORDERED: NITROFURANTOIN MONOHYD/M-CRYST 100 MG CAP PO SCH (11:00)
--- NOTE | 2019-11-24 11:34 | P.DS ---
Providers Date of admission: 11/22/19 03:19 Expected date of discharge: 11/24/19 Attending physician: Kevin Griffin Consults: 11/22/19 09:45 Consult Physician Routine Consulting Provider: Chaim Ward Reason/Comments: SBO Do you want consulting provider notified?: Yes Primary care physician: Kevin Griffin Dictation on discharge summary date of service 11/24/2019 Patient seen evaluated and discharged today. Final diagnosis: #1 acute abdominal pain associated with nausea. #2 UTI Enterococcus faecalis. In the urine. Treated with Rocephin and followed with nitrofurantoin. 100 mg twice a day for 5 days with the increase is water intake. #3 small bowel obstruction resolving with the bowel movement and decreased pain as well as improvement on the lipase not yet normalized. #4 underlying history of asthma COPD on prednisone has been stopped #5 hypothyroidism stable continued medication. #6 underlying dementia early and continued his medication with the Alzheimer's type very mild. 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 #8 COVID-19 negative. #9 hypertension, resuming his medication at home. Follow-up 3-5 days next week. Medication held: Prednisone, MiraLAX . Diet: Gradually increase this substance of the diet. Activity: As tolerated with continue ambulation. Patient does not need anticoagulation due to his constant ambulation and movement. Patient presentation to the ER: Abdominal pain, nausea over 24 hour however was present before but exacerbated could not be handled at home. Found that he had high lipase level and CAT scan of the abdomen indicating small bowel mechanical obstruction most likely, or effect of prednisone. Consultation with gastroenterology. Hospital course: Patient was nothing by mouth except ice chips, no NG tube and no vomiting. A dvised with ambulation, urine analysis indicating enterococcus species and patient was started on Rocephin on discharge discontinued the Rocephin and started on nitrofurantoin. His medication has been adjusted through his hospitalization. Monitoring his lipase and repeat x-ray of the abdomen yesterday on the 11/23/2019 was indicating nonspecific gas. Clinical improvement, no fever no chills no nausea no vomiting with gradual resolution of the abdominal pain. Exam on discharge: The head is normocephalic and atraumatic, he had left facial abnormality drooping with a history of Bradley's palsy in the past, natural teeth with normal swallowing., Pupil was equal reactive, he has mild hearing abnormalities. Neck was supple no JVD no thyromegaly no lymphadenopathy trachea midline. Chest: Normal breath sounds bilaterally no evidence of wheezes or rhonchi's. Heart regular sinus rhythm no dysrhythmia. Abdomen: No epigastric or upper abdominal pain, his lipase has been progressively dropping down, and his toleration of increase his diet, positive bowel sounds. Extremities: No edema positive pulses, and ambulatory. Neurologically: Stable no lateralizing sign, no change in cranial nerves exam, no tremor steady gait. Assessment: #1 stable general condition for discharge. #2 ambulatory. Plan: #1 discharge home today number to follow-up in 3-5 days next week. #2 withholds prednisone and MiraLAX fill seen in the office for the follow-up. #3 for further laboratory and x-ray will be evaluated when he count for the office visit. Patient Condition at Discharge: Serious Plan - Discharge Summary Discharge Rx Participant: Yes New Discharge Prescriptions: New Nitrofurantoin Monohyd/M-Cryst [Macrobid] 100 mg PO BID 5 Days #10 cap Continue Montelukast [Singulair] 10 mg PO DAILY@1200 Metoprolol Tartrate 25 mg PO BID@1200,1700 Theophylline 12 Hour [Silvio-Dur] 300 mg PO BID@1200,1700 Multivitamins, Thera [Multivitamin (formulary)] 1 tab PO DAILY@1200 Aspirin [Adult Low Dose Aspirin EC] 81 mg PO DAILY@1200 Levothyroxine Sodium [Synthroid] 50 mcg PO DAILY@0800 Donepezil HCl [Aricept] 5 mg PO DAILY@1700 Atorvastatin [Lipitor] 80 mg PO HS Artificial Tears-Hypromellose [Artificial Tear Drops] 1 drops LEFT EYE BID PRN PRN Reason: dry eye Famotidine [Pepcid] 20 mg PO BID Losartan Potassium [Cozaar] 100 mg PO DAILY@1200 Cyanocobalamin (Vitamin B-12) [Vitamin B-12] 1,000 mcg PO DAILY@1200 Acetaminophen [Tylenol] 650 mg PO DAILY PRN PRN Reason: headache/pain Discontinued predniSONE 5 mg PO Q48H Polyethylene Glycol 3350 [Miralax] 17 gm PO DAILY PRN PRN Reason: Constipation Discharge Medication List Aspirin [Adult Low Dose Aspirin EC] 81 mg PO DAILY@1200 05/27/17 [History] Metoprolol Tartrate 25 mg PO BID@1200,1700 05/27/17 [History] Montelukast [Singulair] 10 mg PO DAILY@1200 05/27/17 [History] Multivitamins, Thera [Multivitamin (formulary)] 1 tab PO DAILY@1200 05/27/17 [History] Theophylline 12 Hour [Silvio-Dur] 300 mg PO BID@1200,1700 05/27/17 [History] Acetaminophen [Tylenol] 650 mg PO DAILY PRN 11/22/19 [History] Artificial Tears-Hypromellose [Artificial Tear Drops] 1 drops LEFT EYE BID PRN 11/22/19 [History] Atorvastatin [Lipitor] 80 mg PO HS 11/22/19 [History] Cyanocobalamin (Vitamin B-12) [Vitamin B-12] 1,000 mcg PO DAILY@1200 11/22/19 [History] Donepezil HCl [Aricept] 5 mg PO DAILY@1700 11/22/19 [History] Famotidine [Pepcid] 20 mg PO BID 11/22/19 [History] Levothyroxine Sodium [Synthroid] 50 mcg PO DAILY@0800 11/22/19 [History] Losartan Potassium [Cozaar] 100 mg PO DAILY@1200 11/22/19 [History] Nitrofurantoin Monohyd/M-Cryst [Macrobid] 100 mg PO BID 5 Days #10 cap 11/24/19 [Rx] Follow up Appointment(s)/Referral(s): Chaim Ward MD [STAFF PHYSICIAN] - 1 Week Kevin Griffin MD [Primary Care Provider] - 1-2 days Activity/Diet/Wound Care/Special Instructions: Gradual increase in his diet to full liquid followed by soft full by regular diet, avoids hamburger and a dog. Increase activity gradually and ambulate as tolerated Follow-up appointment in 3-5 days in the office Discharge Disposition: HOME SELF-CARE Plan of Treatment: Follow-up in the office 3-5 days. Gradual increase on his diet. Call back in the office if the pain recurrent.
--- NOTE | 2019-11-24 11:47 | P.CONS ---
History of Present Illness - Reason for Consult Consult date: 11/23/19 Abdominal pain Requesting physician: Kevin Griffin - Chief Complaint Abdominal pain - History of Present Illness 79-year-old male with medical history of COPD, GERD, hyperlipidemia and hypertension who presented to the hospital for evaluation of worsening abdominal pain. The patient reports abdominal pain diffuse across his abdomen worsening for the 24 hours prior to presentation he describes it as a dull aching cramping in nature. Patient suffers from constipation at baseline often producing small pellet-like stool. Last bowel movement 3-4 days ago. He was given a suppository yesterday with bowel movements initially hard and then soft. On presentation to the hospital computed tomography scan of the abdomen showed dilated small bowel suggestive of a possible small bowel obstruction versus ileus. He previously underwent EGD on 05/2017 with findings of a small hiatal hernia and gastritis with his last colonoscopy remotely in the past 5-10 years. Laboratory evaluation on presentation significant for a WBC 12.4, hemoglobin 14.2 and platelet count of 353,000 with a INR of 0.9, total bilirubin 0.7, alkaline phosphatase 89, AST 32 and ALT 22. Review of Systems REVIEW OF SYSTEMS: CONSTITUTIONAL: Denies any fevers, chills, weight change or fatigue. CARDIOVASCULAR: Denies any chest pain, palpitations high or low blood pressures RESPIRATORY: Denies any shortness of breath, hemoptysis or cough. GENITOURINARY: No dysuria or hematuria. MUSCULOSKELETAL: No weakness reported. SKIN: Denies any new rashes or lesions, jaundice or pallor. PSYCHIATRIC: Denies any depression or anxiety. NEUROLOGY: Denies headache, denies any new focal deficits. EARS/NOSE/THROAT: No recent hearing change, congestion, nasal discharge or sore throat. EYES: No pain in eyes, discharge or change in vision. GASTROINTESTINAL: As per HPI. Past Medical History Past Medical History: Coronary Artery Disease (CAD), COPD, GERD/Reflux, Hyperlipidemia, Hypertension Additional Past Medical History / Comment(s): dysphagia, states some memory loss History of Any Multi-Drug Resistant Organisms: None Reported Past Surgical History: Cholecystectomy, Heart Catheterization With Stent Additional Past Surgical History / Comment(s): corbin cataracts, EGD Past Anesthesia/Blood Transfusion Reactions: No Reported Reaction Date of Last Stent Placement:: unknown Past Psychological History: No Psychological Hx Reported Additional Psychological History / Comment(s): memory loss Smoking Status: Never smoker Past Alcohol Use History: None Reported Past Drug Use History: None Reported - Past Family History Mother Family Medical History: Cancer Father Family Medical History: Cancer Medications and Allergies Home Medications Medication Instructions Recorded Confirmed Type Aspirin [Adult Low Dose Aspirin EC] 81 mg PO DAILY@1200 05/27/17 11/22/19 History Metoprolol Tartrate 25 mg PO BID@1200,1700 05/27/17 11/22/19 History Montelukast [Singulair] 10 mg PO DAILY@1200 05/27/17 11/22/19 History Multivitamins, Thera [Multivitamin 1 tab PO DAILY@1200 05/27/17 11/22/19 History (formulary)] Theophylline 12 Hour [Silvio-Dur] 300 mg PO BID@1200,1700 05/27/17 11/22/19 History Acetaminophen [Tylenol] 650 mg PO DAILY PRN 11/22/19 11/22/19 History Artificial Tears-Hypromellose 1 drops LEFT EYE BID PRN 11/22/19 11/22/19 History [Artificial Tear Drops] Atorvastatin [Lipitor] 80 mg PO HS 11/22/19 11/22/19 History Cyanocobalamin (Vitamin B-12) 1,000 mcg PO DAILY@1200 11/22/19 11/22/19 History [Vitamin B-12] Donepezil HCl [Aricept] 5 mg PO DAILY@1700 11/22/19 11/22/19 History Famotidine [Pepcid] 20 mg PO BID 11/22/19 11/22/19 History Levothyroxine Sodium [Synthroid] 50 mcg PO DAILY@0800 11/22/19 11/22/19 History Losartan Potassium [Cozaar] 100 mg PO DAILY@1200 11/22/19 11/22/19 History Nitrofurantoin Monohyd/M-Cryst 100 mg PO BID 5 Days #10 cap 11/24/19 Rx [Macrobid] Allergies Allergy/AdvReac Type Severity Reaction Status Date / Time ciprofloxacin [From Cipro] Allergy Rash/Hives Verified 11/22/19 09:24 Physical Exam Vitals: Vital Signs Temp Pulse Resp BP Pulse Ox 11/23/19 13:41 97.9 F 70 18 120/66 97 11/23/19 08:00 18 11/23/19 07:00 98.3 F 88 18 146/77 97 11/23/19 02:45 97.9 F 94 18 128/73 96 11/22/19 19:44 97.6 F 77 18 155/74 98 11/22/19 19:42 18 11/22/19 16:58 18 11/22/19 15:00 97.1 F L 59 L 18 143/79 99 Intake and Output 11/22/19 11/23/19 11/23/19 22:59 06:59 14:59 Intake Total 600 400 Balance 600 400 Intake: Intake, IV Titration 600 Amount Dextrose 5%-0.9% NaCl 1, 600 000 ml @ 75 mls/hr IV . [id number] Rx#:[id number] Oral 400 Other: Voiding Method Toilet Toilet # Voids 2 1 1 # Bowel Movements 1 On physical examination, patient appears comfortable in no apparent distress. HEAD: Normocephalic, atraumatic. EYES: No scleral icterus. No conjunctival injection. MOUTH: No lesions, tongue midline. NECK: Trachea midline, no gross abnormalities. CHEST: Clear to auscultation with no wheezing or rhonchi appreciated. HEART: S1-S2 appreciated. ABDOMEN: Soft, obese. Bowel sounds are positive. No organomegaly. No guarding or rigidity. EXTREMITIES: No pedal edema. SKIN: No rashes, no jaundice. NEUROLOGIC: Alert and oriented x3. No focal deficits. Results CBC & Chem 7: 11/22/19 02:05 11/22/19 02:05 Labs: Abnormal Lab Results - Last 24 Hours (Table) 11/23/19 Range/Units 08:35 Lipase 332 H (23-300) U/L Microbiology - Last 24 Hours (Table) 11/22/19 03:51 Urine Culture - Preliminary Urine,Voided Group D Enterococcus CT scan - abdomen: report reviewed (Computed tomography scan of the abdomen with findings of dilated small bowel suggestive of possible ileus versus partial small bowel obstruction.) Assessment and Plan (1) Partial small bowel obstruction Narrative/Plan: A 1-year-old male with multiple medical comorbidities presenting to the hospital for evaluation of abdominal pain found to have computed tomography scan findings suggestive of possible ileus versus partial small bowel obstruction. The patient given rectal Dulcolax with good bowel movements reported. Given further treatment with magnesium citrate. He does suffer from chronic constipation at baseline with bowel movements every 3-4 days described as small and pellet-like. Previously was tried MiraLAX daily with no improvement in symptoms. Symptoms likely related to chronic constipation. Other differential includes intra- abdominal adhesions causing obstruction, underlying motility disorder, or other etiology. Current Visit: Yes Status: Acute Code(s): K56.600 - PARTIAL INTESTINAL OBSTRUCTION, UNSPECIFIED TO CAUSE SNOMED Code(s): 516134119 (2) Abdominal pain Current Visit: No Status: Acute Code(s): R10.9 - UNSPECIFIED ABDOMINAL PAIN SNOMED Code(s): 19475957 Plan: Supportive care Okay to advance diet Extensive conversation with the patient with recommendations for fiber supplementation, as well as titration of MiraLAX therapy to twice daily which he reports he has at home Magnesium citrate ordered as a one-time dose Computed tomography scan of the abdomen reviewed Patient would benefit from repeat colonoscopy in the outpatient setting which has been discussed with him at length Thank you for allowing us to participate in the care of the patient we will continue to follow
== END 2019-11-24 12:53 | disposition home or self-care (01) | DRG 389 ==
LOC: EC 01:24 → 4SSUR 03:19
PROVIDERS: ADMIT Internal Medicine; ATTEND Internal Medicine
DX: K56.690 Other partial intestinal obstruction (principal); N39.0 Urinary tract infection, site not specified; B95.2 Enterococcus as the cause of diseases classified elsewhere; E03.9 Hypothyroidism, unspecified; E78.5 Hyperlipidemia, unspecified; F02.80 Dementia in other diseases classified elsewhere, unspecified severity, without behavioral disturbance, psychotic disturbance, mood disturbance, and anxiety; G30.9 Alzheimer's disease, unspecified; N18.3 Chronic kidney disease, stage 3 (moderate); Z11.59 Encounter for screening for other viral diseases; H04.129 Dry eye syndrome of unspecified lacrimal gland; I12.9 Hypertensive chronic kidney disease with stage 1 through stage 4 chronic kidney disease, or unspecified chronic kidney disease; I25.10 Atherosclerotic heart disease of native coronary artery without angina pectoris; I73.00 Raynaud's syndrome without gangrene; J30.2 Other seasonal allergic rhinitis; J44.9 Chronic obstructive pulmonary disease, unspecified; K21.9 Gastro-esophageal reflux disease without esophagitis; K57.30 Diverticulosis of large intestine without perforation or abscess without bleeding; N40.1 Benign prostatic hyperplasia with lower urinary tract symptoms; N39.498 Other specified urinary incontinence; R13.10 Dysphagia, unspecified; K44.9 Diaphragmatic hernia without obstruction or gangrene; K59.09 Other constipation; Z92.21 Personal history of antineoplastic chemotherapy; Z92.3 Personal history of irradiation; Z85.46 Personal history of malignant neoplasm of prostate; Z79.82 Long term (current) use of aspirin; Z79.890 Hormone replacement therapy; Z79.899 Other long term (current) drug therapy; Z79.52 Long term (current) use of systemic steroids; Z88.1 Allergy status to other antibiotic agents; Z90.49 Acquired absence of other specified parts of digestive tract; Z95.5 Presence of coronary angioplasty implant and graft; Z98.42 Cataract extraction status, left eye; Z98.41 Cataract extraction status, right eye; Z80.9 Family history of malignant neoplasm, unspecified
CPT/HCPCS: 36415; 74019; 74177; 80053; 81001; 82150; 83605; 83690; 85025; 85610; 85730; 87077; 87086; 87186; 96361; 96374; 96375; 99285

== ENCOUNTER → 2019-12-06 | Outpatient (CLI) | payer MEDICARE ==
[2019-12-06 12:24] LABS: Calcium 9.4 mg/dL (8.4-10.2); Potassium 4.2 mmol/L (3.5-5.1)
[2019-12-06 12:41] LABS: T4, Free (Free Thyroxine) 1.2 ng/dL (0.78-2.19)
--- NOTE | 2019-12-06 15:59 | NM ---
EXAMINATION TYPE: NM bone scan whole body DATE OF EXAM: 12/06/2019 COMPARISON: Checks x-ray 04/12/2018, right rib series 08/26/2017 HISTORY: Pain Delayed whole-body scanning was performed following the injection of 22.4 mCi Tc 99m MDP. Images acq uired 3 hours post injection. FINDINGS: There is intense abnormal uptake involving the mid anterior rib cage, faint uptake involving the late ral mid and lower left rib cage. There is abnormal uptake involving the thoracic spine likely degenerative Abnormal uptake involving the feet and shoulders likely post arthritic. Nonspecific uptake involving the mandible. Abnormal uptake involving the left wrist likely post arthr itic. IMPRESSION: 1. Nonspecific uptake involving the bilateral rib cage likely related to fractures. X-ray correlation as clinically warranted. 2. Nonspecific uptake involving the thoracic vertebral column likely degenerative.
[2019-12-06 17:57] LABS: Anti-DNA, DS unit <1.0 IU/mL; Cyclic Citrull Pep IgG Unit <0.5 U/mL; Cyclic Citrullinated Pep IgG NEGATIVE (NEGATIVE); DNA Double-Stranded NEGATIVE (NEGATIVE)
[2019-12-06 18:55] LABS: Prostate Specific Antigen 0.8 ng/mL (0.0-6.5)
== END | disposition home or self-care (01) ==
LOC: RADNMMAIN 10:50
PROVIDERS: ATTEND Internal Medicine
DX: M25.50 Pain in unspecified joint (principal); R26.89 Other abnormalities of gait and mobility; Z85.46 Personal history of malignant neoplasm of prostate; Z88.1 Allergy status to other antibiotic agents; Z88.8 Allergy status to other drugs, medicaments and biological substances
CPT/HCPCS: 84439; 84153; 80048; 85652; 84443; 86431; 86038; 86225; 86200; 78306; A9503

== ENCOUNTER 2019-12-29 23:23 | Emergency (ER) | payer MEDICARE ==
--- NOTE | 2019-12-29 23:47 | ED ---
General Adult HPI - General Chief complaint: Shortness of Breath Stated complaint: SOB Time Seen by Provider: 12/29/19 23:43 Source: patient Mode of arrival: ambulatory Limitations: no limitations - History of Present Illness Initial comments: Praveen is a pleasantly demented 79-year-old male who presents the ER today via private vehicle for evaluation of shortness of breath and cough since yesterday. Patient reports he just feels like he can't catch his breath, he is wheezing. He denies any chest pain, palpitations. Uncertain if he has a history of this. Uncertain if these do breathing treatments in the past. Denies any fevers, chills, nausea or vomiting. Reports he is otherwise feeling well. - Related Data Home Medications Medication Instructions Recorded Confirmed Aspirin [Adult Low Dose Aspirin EC] 81 mg PO DAILY@1200 05/27/17 11/22/19 Metoprolol Tartrate 25 mg PO BID@1200,1700 05/27/17 11/22/19 Montelukast [Singulair] 10 mg PO DAILY@1200 05/27/17 11/22/19 Multivitamins, Thera [Multivitamin 1 tab PO DAILY@1200 05/27/17 11/22/19 (formulary)] Theophylline 12 Hour [Silvio-Dur] 300 mg PO BID@1200,1700 05/27/17 11/22/19 Acetaminophen [Tylenol] 650 mg PO DAILY PRN 11/22/19 11/22/19 Artificial Tears-Hypromellose 1 drops LEFT EYE BID PRN 11/22/19 11/22/19 [Artificial Tear Drops] Atorvastatin [Lipitor] 80 mg PO HS 11/22/19 11/22/19 Cyanocobalamin (Vitamin B-12) 1,000 mcg PO DAILY@1200 11/22/19 11/22/19 [Vitamin B-12] Donepezil HCl [Aricept] 5 mg PO DAILY@1700 11/22/19 11/22/19 Famotidine [Pepcid] 20 mg PO BID 11/22/19 11/22/19 Levothyroxine Sodium [Synthroid] 50 mcg PO DAILY@0800 11/22/19 11/22/19 Losartan Potassium [Cozaar] 100 mg PO DAILY@1200 11/22/19 11/22/19 Previous Rx's Medication Instructions Recorded Nitrofurantoin Monohyd/M-Cryst 100 mg PO BID 5 Days #10 cap 11/24/19 [Macrobid] Albuterol Inhaler [Ventolin Hfa 1 puff INHALATION Q4H PRN #1 inh 12/30/19 Inhaler] predniSONE [Deltasone] 40 mg PO DAILY 5 Days #10 tab 12/30/19 Allergies Allergy/AdvReac Type Severity Reaction Status Date / Time ciprofloxacin [From Cipro] Allergy Rash/Hives Verified 12/29/19 23:30 Review of Systems ROS Statement: Those systems with pertinent positive or pertinent negative responses have been documented in the HPI. ROS Other: All systems not noted in ROS Statement are negative. Past Medical History Past Medical History: Coronary Artery Disease (CAD), COPD, Dementia, GE RD/Reflux, Hyperlipidemia, Hypertension Additional Past Medical History / Comment(s): dysphagia, states some memory loss History of Any Multi-Drug Resistant Organisms: None Reported Past Surgical History: Cholecystectomy, Heart Catheterization With Stent Additional Past Surgical History / Comment(s): corbin cataracts, EGD Past Anesthesia/Blood Transfusion Reactions: No Reported Reaction Date of Last Stent Placement:: unknown Past Psychological History: No Psychological Hx Reported Smoking Status: Never smoker Past Alcohol Use History: None Reported Past Drug Use History: None Reported - Past Family History Mother Family Medical History: Cancer Father Family Medical History: Cancer General Exam - General Exam Comments Initial Comments: Physical Exam GENERAL: Patient is well-developed and well-nourished. Patient in moderate respiratory distress with tachypnea and audible wheezing on arrival HENT: Normocephalic, Atraumatic. EYES: PERRL, EOMI PULMONARY: Tachypnea, expiratory wheezing in all lung martinez CARDIOVASCULAR: There is a regular rate and rhythm without any murmurs gallops or rubs. ABDOMEN: Soft and nontender with normal bowel sounds. 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 No lower extremity swelling or edema. No calf tenderness. PSYCHIATRIC: Normal psychiatric evaluation. Limitations: no limitations Course Vital Signs 12/29/19 12/30/19 12/30/19 23:27 00:22 00:51 Temperature 97.8 F Pulse Rate 74 84 90 Respiratory 16 Rate Blood Pressure 169/84 O2 Sat by Pulse 97 Oximetry EKG Findings - EKG Comments: EKG Findings:: EKG was obtained due to complaint of shortness of breath and an elderly man, EKG was obtained at 2344, rate is 72 rhythm is sinus, right bundle branch block, HI is 168, QRS 120, QTC is [address] elevations or depressions or evidence of acute ischemia or infarction Medical Decision Making - Medical Decision Making The patient was seen and evaluated, history is obtained from the patient Physical exam consistent with a COPD exacerbation patient has wheezing in all lung martinez Patient was treated with a triple DuoNeb treatment, chest x-ray revealed no acute findings Labs with mild leukocytosis likely reactive no other significant abnormalities troponin is negative patient's never experienced any chest pain Upon reevaluation patient's actions 98% on room air, heart rates in the 80s, respiratory rate 14 he's in no acute distress and is comfortable with the plan for discharge home. Patient will be prescribed prednisone and an albuterol inhaler and encouraged to follow up with Dr. crowe on Tuesday. Return parameters were discussed patient was discharged home in stable condition. - Lab Data Result diagrams: 12/30/19 00:20 12/30/19 00:20 Lab Results 12/30/19 12/30/19 12/30/19 Range/Units 00: 00: 00:20 WBC 12.0 H (3.8-10.6) k/uL RBC 4.27 L (4.30-5.90) m/uL Hgb 12.4 L (13.0-17.5) gm/dL Hct 37.7 L (39.0-53.0) % MCV 88.2 (80.0-100.0) fL MCH 28.9 (25.0-35.0) pg MCHC 32.8 (31.0-37.0) g/dL RDW 14.0 (11.5-15.5) % Plt Count 339 (150-450) k/uL Neutrophils % 50 % Lymphocytes % 20 % Monocytes % 7 % Eosinophils % 19 % Basophils % 1 % Neutrophils # 6.0 (1.3-7.7) k/uL Lymphocytes # 2.4 (1.0-4.8) k/uL Monocytes # 0.9 (0-1.0) k/uL Eosinophils # 2.3 H (0-0.7) k/uL Basophils # 0.1 (0-0.2) k/uL PT 10.1 (9.0-12.0) sec INR 1.0 (<1.2) APTT 22.5 (22.0-30.0) sec Sodium 139 (137-145) mmol/L Potassium 4.3 (3.5-5.1) mmol/L Chloride 107 (98-107) mmol/L Carbon Dioxide 23 (22-30) mmol/L Anion Gap 9 mmol/L BUN 16 (9-20) mg/dL Creatinine 1.46 H (0.66-1.25) mg/dL Est GFR (CKD-EPI)AfAm 51 (>60 ml/min/1.73 sqM) Est GFR (CKD-EPI)NonAf 45 (>60 ml/min/1.73 sqM) Glucose 89 (74-99) mg/dL Plasma Lactic Acid Lawson (0.7-2.0) mmol/L Calcium 9.5 (8.4-10.2) mg/dL Magnesium 2.0 (1.6-2.3) mg/dL Total Bilirubin 0.4 (0.2-1.3) mg/dL AST 28 (17-59) U/L ALT 15 (4-49) U/L Alkaline Phosphatase 91 (38-126) U/L Troponin I (0.000-0.034) ng/mL NT-Pro-B Natriuret Pep pg/mL Total Protein 6.3 (6.3-8.2) g/dL Albumin 3.7 (3.5-5.0) g/dL 12/30/19 12/30/19 12/30/19 Range/Units 00:20 00:20 00:20 WBC (3.8-10.6) k/uL RBC (4.30-5.90) m/uL Hgb (13.0-17.5) gm/dL Hct (39.0-53.0) % MCV (80.0-100.0) fL MCH (25.0-35.0) pg MCHC (31.0-37.0) g/dL RDW (11.5-15.5) % Plt Count (150-450) k/uL Neutrophils % % Lymphocytes % % Monocytes % % Eosinophils % % Basophils % % Neutrophils # (1.3-7.7) k/uL Lymphocytes # (1.0-4.8) k/uL Monocytes # (0-1.0) k/uL Eosinophils # (0-0.7) k/uL Basophils # (0-0.2) k/uL PT (9.0-12.0) sec INR (<1.2) APTT (22.0-30.0) sec Sodium (137-145) mmol/L Potassium (3.5-5.1) mmol/L Chloride (98-107) mmol/L Carbon Dioxide (22-30) mmol/L Anion Gap mmol/L BUN (9-20) mg/dL Creatinine (0.66-1.25) mg/dL Est GFR (CKD-EPI)AfAm (>60 ml/min/1.73 sqM) Est GFR (CKD-EPI)NonAf (>60 ml/min/1.73 sqM) Glucose (74-99) mg/dL Plasma Lactic Acid Lawson 1.2 (0.7-2.0) mmol/L Calcium (8.4-10.2) mg/dL Magnesium (1.6-2.3) mg/dL Total Bilirubin (0.2-1.3) mg/dL AST (17-59) U/L ALT (4-49) U/L Alkaline Phosphatase (38-126) U/L Troponin I <0.012 (0.000-0.034) ng/mL NT-Pro-B Natriuret Pep 139 pg/mL Total Protein (6.3-8.2) g/dL Albumin (3.5-5.0) g/dL Disposition Clinical Impression: COPD (chronic obstructive pulmonary disease) Disposition: HOME SELF-CARE Condition: Stable Additional Instructions: As we discussed your having some wheezing, he should use the inhaler every 4 hours as needed for wheezing. Begin taking prednisone tomorrow morning 2 pills every morning for the next 5 d ays Return to the ER if he have any worsening shortness of breath or develop a fever, chest pain or any new or concerning symptoms Follow-up with her primary care provider on Tuesday for reevaluation Prescriptions: predniSONE [Deltasone] 40 mg PO DAILY 5 Days #10 tab Albuterol Inhaler [Ventolin Hfa Inhaler] 1 puff INHALATION Q4H PRN #1 inh PRN Reason: Wheezing Is patient prescribed a controlled substance at d/c from ED?: No Referrals: Kevin Griffin MD [Primary Care Provider] - 1-2 days
[2019-12-30] MEDS ORDERED: IPRATROPIUM-ALBUTEROL 3 ML NEB INHALATION STA (00:01)
[2019-12-30] MEDS ORDERED: methylPREDNISolone SOD SUCCI 125 MG/2 ML VIAL IVP ONE (00:15)
[2019-12-30 00:40] LABS: Basophils # (A) 0.1 k/uL (0-0.2); Basophils % (A) 1 %; Eosinophils # (A) 2.3 k/uL (0-0.7); Eosinophils % (A) 19 %; HCT 37.7 % (39.0-53.0); HGB 12.4 gm/dL (13.0-17.5); Lymphocytes # (A) 2.4 k/uL (1.0-4.8); Lymphocytes % (A) 20 %; MCH 28.9 pg (25.0-35.0); MCHC 32.8 g/dL (31.0-37.0); MCV 88.2 fL (80.0-100.0); Mean Platelet Volume 6.9; Monocytes # (A) 0.9 k/uL (0-1.0); Monocytes % (A) 7 %; Neutrophils % (A) 50 %; Platelet Count 339 k/uL (150-450); RBC 4.27 m/uL (4.30-5.90)
[2019-12-30 00:52] LABS: Partial Thromboplastin Time 22.5 sec (22.0-30.0); Prothrombin Time 10.1 sec (9.0-12.0)
[2019-12-30 00:53] LABS: Albumin 3.7 g/dL (3.5-5.0); Calcium 9.5 mg/dL (8.4-10.2); Potassium 4.3 mmol/L (3.5-5.1); Total Bilirubin 0.4 mg/dL (0.2-1.3); Total Protein 6.3 g/dL (6.3-8.2)
--- NOTE | 2019-12-30 01:38 | XR ---
EXAMINATION TYPE: XR chest 2V DATE OF EXAM: 12/30/2019 COMPARISON: 04/12/2018 HISTORY: Short of breath TECHNIQUE: FINDINGS: Heart is normal. Lungs are clear of infiltrate. There is no heart failure. There are chest leads. Costophrenic angles are clear. There are no hilar masses. IMPRESSION: No active cardiopulmonary disease. Normal heart. No change.
[2019-12-30] MEDS ORDERED: ALBUTEROL NEBULIZED 2.5 MG/3 ML INHALATION STA (02:19)
[2019-12-30] MEDS ORDERED: ALBUTEROL HFA INHALER INHALATION ONE (02:25)
[2019-12-30 03:44] VITALS: BP 140/67; PULSE 96; RESP 18; TEMP 98
== END 2019-12-30 02:50 | disposition home or self-care (01) ==
LOC: EC 23:23
DX: J44.1 Chronic obstructive pulmonary disease with (acute) exacerbation (principal); I10 Essential (primary) hypertension; E78.5 Hyperlipidemia, unspecified; I25.10 Atherosclerotic heart disease of native coronary artery without angina pectoris; F03.90 Unspecified dementia, unspecified severity, without behavioral disturbance, psychotic disturbance, mood disturbance, and anxiety; Z79.52 Long term (current) use of systemic steroids; Z79.82 Long term (current) use of aspirin; Z79.899 Other long term (current) drug therapy; Z88.1 Allergy status to other antibiotic agents; Z95.5 Presence of coronary angioplasty implant and graft; Z98.42 Cataract extraction status, left eye; Z98.41 Cataract extraction status, right eye
CPT/HCPCS: 36415; 71046; 80053; 83605; 83735; 83880; 84484; 85025; 85610; 85730; 87040; 93005; 94640; 96374; 99285

== ENCOUNTER → 2020-06-06 | Outpatient (CLI) | payer MEDICARE ==
[2020-06-06 09:20] LABS: Basophils # (A) 0.1 k/uL (0-0.2); Basophils % (A) 1 %; Eosinophils # (A) 0.4 k/uL (0-0.7); Eosinophils % (A) 3 %; HCT 40.5 % (39.0-53.0); HGB 13.6 gm/dL (13.0-17.5); Lymphocytes # (A) 2.2 k/uL (1.0-4.8); Lymphocytes % (A) 16 %; MCH 30.8 pg (25.0-35.0); MCHC 33.5 g/dL (31.0-37.0); MCV 91.8 fL (80.0-100.0); Mean Platelet Volume 6.6; Monocytes % (A) 8 %; Neutrophils # (A) 9.5 k/uL (1.3-7.7); Neutrophils % (A) 71 %; Platelet Count 314 k/uL (150-450); RBC 4.41 m/uL (4.30-5.90); RDW 12.8 % (11.5-15.5); WBC 13.3 k/uL (3.8-10.6)
[2020-06-06 11:09] LABS: Erythrocyte Sedimentation Rate 15 mm/hr (0-15)
[2020-06-06 17:39] LABS: African American GFR (CKD) 53.8 (60.0-200.0); Albumin 4.3 g/dL (3.80-4.90); Albumin/Globulin Ratio 2.53 (1.60-3.17); Anion Gap 8.7 mmol/L (4.00-12.00); BUN/Creat Ratio 16.43 Ratio (12.00-20.00); C Reactive Protein 0.9 mg/dL (0.0-0.8); Calcium 9.1 mg/dL (8.7-10.3); Carbon Dioxide 25.3 mmol/L (21.6-31.8); Chol/HDL Ratio 3.05; Globulin 1.7 g/dL (1.6-3.3); LDL Cholesterol,Calculated 96.6 mg/dL (0.0-131.0); Non-African American GFR(CKD) 46.5 (60.0-200.0); Potassium 4.5 mmol/L (3.5-5.5); Total Bilirubin 0.7 mg/dL (0.3-1.2); Uric Acid 6.2 mg/dL (3.7-8.7); VLDL Calculation 24.4 mg/dL (5.00-40.00)
[2020-06-06 17:47] LABS: Prostate Specific Antigen 1.2 ng/mL (0.0-6.5); T4, Free (Free Thyroxine) 1.2 ng/dL (0.80-1.80)
== END | disposition home or self-care (01) ==
LOC: LABWHC1 08:02
PROVIDERS: ATTEND Internal Medicine
DX: J44.9 Chronic obstructive pulmonary disease, unspecified (principal); I10 Essential (primary) hypertension; E87.8 Other disorders of electrolyte and fluid balance, not elsewhere classified; M10.9 Gout, unspecified; E78.5 Hyperlipidemia, unspecified; E03.9 Hypothyroidism, unspecified; M81.0 Age-related osteoporosis without current pathological fracture; E11.65 Type 2 diabetes mellitus with hyperglycemia
CPT/HCPCS: 36415; 80053; 80061; 82306; 82550; 84153; 84439; 84443; 84550; 85025; 85652; 86140

== ENCOUNTER → 2020-12-08 | Outpatient (CLI) | payer MEDICARE ==
--- NOTE | 2020-12-10 07:36 | FL ---
EXAMINATION TYPE: FL UGI w esophagus w sm bowel DATE OF EXAM: 12/08/2020 COMPARISON: None HISTORY: Nausea vomiting dysphagia abdominal pain TECHNIQUE: Double air contrast technique was utilized to evaluate the esophagus upper GI and small hunter wel. Fluoroscopy real-time observation and overhead radiographs were obtained. FINDINGS: Fluoroscopy time: Not recorded Images: 13 Circular Saw Edge Fuser view: Pulmonary abdominal film was obtained and felt to be noncontributory. There is present wi thin small bowel loops as well as the colon. Upper GI: Esophagus dilates to normal caliber has a normal contour to the gastroesophageal junction. Gastroesophageal junction opens to normal caliber. A few tertiary contractions were present during th e exam. Fundus body and antrum of the stomach as visualized are normal without intraluminal or extramural def ects. Barium readily empties into a normally positioned duodenal cap and sweep. Small bowel follow-through: Following additional oral administration of contrast sequential overhead radiographs were obtained. Transit time to the colon is 2 hours 15 minutes. Terminal ileum may have a couple of diverticulum. Th ere is some prominence of the jejunal ileal junction. Obstruction is not identified. There is some il ealization of the fold pattern of the mid jejunum. IMPRESSION: 1. Mild presbyesophagus. 2. Upper GI appears within normal limits. 3. Transit time for small bowel follow-through is 2 hours 15 minutes. 4. Couple of diverticulum or within the terminal ileum
== END | disposition home or self-care (01) ==
LOC: RADFLMAIN 08:33
PROVIDERS: ATTEND Internal Medicine
DX: K57.10 Diverticulosis of small intestine without perforation or abscess without bleeding (principal); K22.8 Other specified diseases of esophagus; R13.10 Dysphagia, unspecified
CPT/HCPCS: 74240; 74248

== ENCOUNTER → 2021-06-16 | Outpatient (CLI) | payer MEDICARE ==
[2021-06-16 18:36] LABS: T4, Free (Free Thyroxine) 1.12 ng/dL (0.800-1.800)
== END | disposition home or self-care (01) ==
LOC: LABWHC1 11:07
PROVIDERS: ATTEND Ophthalmology
DX: G70.01 Myasthenia gravis with (acute) exacerbation (principal)
CPT/HCPCS: 36415; 83519; 84439; 84443

== ENCOUNTER → 2022-03-12 | Outpatient (CLI) | payer MEDICARE ==
--- NOTE | 2022-03-12 11:09 | MR ---
EXAMINATION TYPE: MR brain wo/w con DATE OF EXAM: 03/12/2022 COMPARISON: None HISTORY: Chronic hemifacial spasm TECHNIQUE: Multiplanar, multisequence images of the brain and brainstem is performed without and with IV contras t, utilizing 8 mL intravenous Gadavist . FINDINGS: Diffusion weighted images demonstrate no evidence of a recent infarct or other diffusion ab normality. There is moderate to severe generalized degenerative changes. There is diffuse and focal areas of abnormal signal scattered throughout the white matter bilaterally. Findings are nonspecific but most of the abnormal white matter ischemia. There are changes of chronic sinusitis. This are symmetric. Midline structures demonstrate normal morphology. The craniocervical junction appears within normal limits. 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 There is umesh ear enhancement in the region of the right seventh /8th nerve complex. The dural venous sinuses appea r patent. IMPRESSION: 1. Extensive degenerative and nonspecific white matter changes most difficult removal microvascular i schemia. 2. There is abnormal enhancement in the right cerebellopontine angle. 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 3. 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 4. Chronic sinusitis.
== END | disposition home or self-care (01) ==
LOC: RADMRIMAIN 09:56
PROVIDERS: ATTEND Ophthalmology Ophthalmic Plastic and Reconstructive Surgery
DX: D33.3 Benign neoplasm of cranial nerves (principal); I67.82 Cerebral ischemia; J32.9 Chronic sinusitis, unspecified; Q28.3 Other malformations of cerebral vessels
CPT/HCPCS: 70553; A9585

== ENCOUNTER 2022-03-20 03:55 | Emergency (ER) | payer MEDICARE ==
[2022-03-20 04:02] VITALS: RESP 16
[2022-03-20 04:49] VITALS: TEMP 97.9
[2022-03-20] MEDS ORDERED: LIDOCAINE 1% INJ 10MG/ML (30 ML VIAL-PF) SQ ONE (06:07)
--- NOTE | 2022-03-20 06:48 | ED ---
Wound/Laceration HPI - General Chief Complaint: Wound/Laceration Stated Complaint: LT arm lac Time Seen by Provider: 03/20/22 05:58 Source: patient, RN notes reviewed Mode of arrival: ambulatory Limitations: no limitations - History of Present Illness Initial Comments: This is an 82-year-old male who presents to the emergency department for a left arm laceration. States that he was walking to the bathroom early this morning, when he hit his arm on the doorway. States that he had an area of bleeding that "shot up" towards the ceiling and he was bleeding everywhere. He does take blood thinners, however he is not sure which one. He is up-to-date on his tetanus vaccine. Denies hitting his head. Denies any fevers, chills, sore throat, cough, dyspnea, chest pain, palpitations, abdominal pain, nausea, vomiting, diarrhea, back pain, or headaches. Extremity Location: Left: Forearm Place: home Patient Tetanus UTD: Yes Context: accidental - Related Data Home Medications Medication Instructions Recorded Confirmed Aspirin [Adult Low Dose Aspirin EC] 81 mg PO DAILY@1200 05/27/17 11/22/19 Metoprolol Tartrate 25 mg PO BID@1200,1700 05/27/17 11/22/19 Montelukast [Singulair] 10 mg PO DAILY@1200 05/27/17 11/22/19 Multivitamins, Thera [Multivitamin 1 tab PO DAILY@1200 05/27/17 11/22/19 (formulary)] Theophylline 12 Hour [Silvio-Dur] 300 mg PO BID@1200,1700 05/27/17 11/22/19 Acetaminophen [Tylenol] 650 mg PO DAILY PRN 11/22/19 11/22/19 Artificial Tears-Hypromellose 1 drops LEFT EYE BID PRN 11/22/19 11/22/19 [Artificial Tear Drops] Atorvastatin [Lipitor] 80 mg PO HS 11/22/19 11/22/19 Cyanocobalamin (Vitamin B-12) 1,000 mcg PO DAILY@1200 11/22/19 11/22/19 [Vitamin B-12] Donepezil HCl [Aricept] 5 mg PO DAILY@1700 11/22/19 11/22/19 Famotidine [Pepcid] 20 mg PO BID 11/22/19 11/22/19 Levothyroxine Sodium [Synthroid] 50 mcg PO DAILY@0800 11/22/19 11/22/19 Losartan Potassium [Cozaar] 100 mg PO DAILY@1200 11/22/19 11/22/19 Previous Rx's Medication Instructions Recorded Nitrofurantoin Monohyd/M-Cryst 100 mg PO BID 5 Days #10 cap 11/24/19 [Macrobid] Albuterol Inhaler [Ventolin Hfa 1 puff INHALATION Q4H PRN #1 inh 12/30/19 Inhaler] predniSONE [Deltasone] 40 mg PO DAILY 5 Days #10 tab 12/30/19 Allergies Allergy/AdvReac Type Severity Reaction Status Date / Time ciprofloxacin [From Cipro] Allergy Rash/Hives Verified 12/29/19 23:30 Review of Systems ROS Statement: Those systems with pertinent positive or pertinent negative responses have been documented in the HPI. ROS Other: All systems not noted in ROS Statement are negative. Past Medical History Past Medical History: Coronary Artery Disease (CAD), COPD, Dementia, GERD/Reflux, Hyperlipidemia, Hypertension Additional Past Medical History / Comment(s): dysphagia, states some memory loss History of Any Multi-Drug Resistant Organisms: None Reported Past Surgical History: Cholecystectomy, Heart Catheterization With Stent Additional Past Surgical History / Comment(s): corbin cataracts, EGD Past Anesthesia/Blood Transfusion Reactions: No Reported Reaction Date of Last Stent Placement:: unknown Past Psychological History: No Psychological Hx Reported Smoking Status: Never smoker Past Alcohol Use History: None Reported Past Drug Use History: None Reported - Past Family History Mother Family Medical History: Cancer Father Family Medical History: Cancer General Exam Limitations: no limitations General appearance: alert, in no apparent distress Head exam: Present: atraumatic, normocephalic, normal inspection Respiratory exam: Present: normal lung sounds bilaterally. Absent: respiratory distress, wheezes, rales, rhonchi, stridor Cardiovascular Exam: Present: regular rate, normal rhythm, normal heart sounds. Absent: systolic murmur, diastolic murmur, rubs, gallop, clicks Neurological exam: Present: alert, oriented X3, CN II-XII intact Psychiatric exam: Present: normal affect, normal mood Skin exam: Present: other (5 x 4 cm skin tear to the left forearm. There is a minor arterial bleed to the inferior left aspect of the injury with active b leeding.) Course Vital Signs 03/20/22 03/20/22 03/20/22 03:56 04:48 07:00 Temperature 98.3 F 97.9 F 97.9 F Pulse Rate 86 81 74 Respiratory 16 16 16 Rate Blood Pressure 160/80 152/68 132/68 O2 Sat by Pulse 98 99 99 Oximetry Procedures - Laceration Laceration #1 Consent Obtained: verbal consent Indication: laceration Site: upper extremity Size (cm): 2 (The arterial bleed, not the whole skin tear) Description: linear Depth: simple, single layer Anesthetic Used: lidocaine 1% Anesthesia Technique: local infiltration Amount (mls): 3 Type of Sutures: vicryl Size of Sutures: 4-0 Number of Sutures: 4 Technique: simple, interrupted Medical Decision Making - Medical Decision Making This is an 82-year-old male who presents to the emergency department for a left arm skin tear and laceration. There was a minor arterial bleed with active bleeding. Absorbable sutures were used to tie this off and hemostasis was achieved. The skin tear was too large for sutures. The area was covered and wound care instructions were reviewed with the patient. His tetanus status is up-to-date. Instructed him to follow-up with his primary care provider to reevaluate healing status. Advised Tylenol as needed for the pain. Return precautions reviewed in depth, the patient is instructed to return to the emergency department with any new, worsening, or concerning symptoms. Patient verbalized understanding. This case was discussed in detail with the attending ED physician. Presentation, findings, and treatment plan discussed in detail as well. Disposition Clinical Impression: Laceration, Skin tear Disposition: HOME SELF-CARE Instructions (If sedation given, give patient instructions): Skin Tear (ED), Care For Your Absorbable Stitches (ED) Additional Instructions: Return to the emergency department with any new, worsening, or concerning symptoms, especially if it begins to bleed heavily again. Your stitches do not need to be removed. Take Tylenol as needed for any pain. Follow up with your primary care provider in 1-2 days. Is patient prescribed a controlled substance at d/c from ED?: No Referrals: Kevin Griffin MD [Primary Care Provider] - 1-2 days
[2022-03-20 07:05] VITALS: BP 132/68; PULSE 74
== END 2022-03-20 07:05 | disposition home or self-care (01) ==
LOC: EC 03:55
DX: S41.112A Laceration without foreign body of left upper arm, initial encounter (principal); S61.419A Laceration without foreign body of unspecified hand, initial encounter; I11.9 Hypertensive heart disease without heart failure; J44.9 Chronic obstructive pulmonary disease, unspecified; K21.9 Gastro-esophageal reflux disease without esophagitis; E78.5 Hyperlipidemia, unspecified; Z79.51 Long term (current) use of inhaled steroids; Z51.81 Encounter for therapeutic drug level monitoring; Z79.02 Long term (current) use of antithrombotics/antiplatelets; Z79.811 Long term (current) use of aromatase inhibitors; Z88.1 Allergy status to other antibiotic agents; W22.8XXA Striking against or struck by other objects, initial encounter
CPT/HCPCS: 99283; 12001; J2001

== ENCOUNTER → 2022-08-04 | Outpatient (CLI) | payer MEDICARE ==
[2022-08-04 10:34] LABS: Basophils # (A) 0.05 X 10*3/uL (0.00-0.10); Basophils % (A) 0.5 %; Eosinophils # (A) 0.08 X 10*3/uL (0.04-0.35); Eosinophils % (A) 0.7 %; HCT 35.9 % (39.6-50.0); HGB 11.1 g/dL (13.0-17.0); Immature Grans, Automated 0.6 %; Lymphocytes # (A) 2.21 X 10*3/uL (0.90-5.00); Lymphocytes % (A) 20.6 %; MCH 27.2 pg (27.0-32.0); MCHC 30.9 g/dL (32.0-37.0); Mean Platelet Volume 8.8 fL (9.5-12.2); Monocytes # (A) 1.13 X 10*3/uL (0.20-1.00); Monocytes % (A) 10.6 %; NRBC Per 100 WBC 0 /100 WBCS (0.0-0.0); Neutrophils # (A) 7.18 X 10*3/uL (1.80-7.70); Platelet Count 343 X 10*3/uL (140-440); RBC 4.08 X 10*6/uL (4.40-5.60); RDW 15.1 % (11.5-14.5); WBC 10.71 X 10*3/uL (4.50-10.00)
[2022-08-04 11:29] LABS: ALT 23 U/L (10-49); AST 20 U/L (14-35); African American GFR (CKD) 45.2 (60.0-200.0); Albumin/Globulin Ratio 1.82 (1.60-3.17); Alkaline Phosphatase 83 U/L (41-126); BUN/Creat Ratio 16.25 Ratio (12.00-20.00); Calcium 9.4 mg/dL (8.7-10.3); Carbon Dioxide 22.2 mmol/L (20.0-27.5); Chloride 106 mmol/L (96-109); Creatine Kinase 72 U/L (35-257); Globulin 2.2 g/dL (1.6-3.3); Glucose 78 mg/dL (70-110); Phosphorus 3.5 mg/dL (2.4-5.1); Potassium 4.8 mmol/L (3.5-5.5); Sodium 142 mmol/L (135-145); Total Protein 6.2 g/dL (6.2-8.2); Uric Acid 6.8 mg/dL (3.7-8.7)
[2022-08-04 11:36] LABS: C Reactive Protein <0.30 mg/dL (0.00-0.80); Chol/HDL Ratio 2.86 Ratio; LDL Cholesterol,Calculated 128.6 mg/dL (0.0-131.0)
[2022-08-04 15:24] LABS: Erythrocyte Sedimentation Rate 11 mm/Hr (0-20)
== END | disposition home or self-care (01) ==
LOC: LABWHC1 07:45
PROVIDERS: ATTEND Internal Medicine
DX: Z00.00 Encounter for general adult medical examination without abnormal findings (principal); I12.9 Hypertensive chronic kidney disease with stage 1 through stage 4 chronic kidney disease, or unspecified chronic kidney disease; J44.9 Chronic obstructive pulmonary disease, unspecified; E87.8 Other disorders of electrolyte and fluid balance, not elsewhere classified; M10.9 Gout, unspecified; E03.9 Hypothyroidism, unspecified; M81.0 Age-related osteoporosis without current pathological fracture; E55.9 Vitamin D deficiency, unspecified; D72.829 Elevated white blood cell count, unspecified; F03.90 Unspecified dementia, unspecified severity, without behavioral disturbance, psychotic disturbance, mood disturbance, and anxiety; D63.1 Anemia in chronic kidney disease; N18.30 Chronic kidney disease, stage 3 unspecified; Z92.3 Personal history of irradiation
CPT/HCPCS: 36415; 80053; 80061; 82306; 82550; 83735; 84100; 84153; 84439; 84443; 84550; 85025; 85652; 86140

== ENCOUNTER → 2022-09-27 | Outpatient (CLI) | payer MEDICARE ==
--- NOTE | 2022-09-27 12:32 | XR ---
EXAMINATION TYPE: XR ankle complete LT DATE OF EXAM: 09/27/2022 COMPARISON: NONE HISTORY: Pain TECHNIQUE: 3 views of the left ankle are submitted for evaluation. FINDINGS: There is no evidence for fracture or dislocation. Ankle mortise is intact. Medial and later al soft tissue edema noted. IMPRESSION: 1. No evidence for acute fracture.
[2022-09-27 15:37] LABS: African American GFR (CKD) 45.2 (60.0-200.0); Anion Gap 10.1 mmol/L (10.00-18.00); BUN/Creat Ratio 16.63 Ratio (12.00-20.00); Blood Urea Nitrogen 26.6 mg/dL (9.0-27.0); Calcium 9.1 mg/dL (8.7-10.3); Carbon Dioxide 23.9 mmol/L (20.0-27.5); Potassium 4.8 mmol/L (3.5-5.5); Uric Acid 6.2 mg/dL (3.7-8.7)
[2022-09-27 15:41] LABS: Basophils # (A) 0.03 X 10*3/uL (0.00-0.10); Basophils % (A) 0.3 %; Eosinophils # (A) 0.03 X 10*3/uL (0.04-0.35); Eosinophils % (A) 0.3 %; HCT 35.2 % (39.6-50.0); HGB 10.9 g/dL (13.0-17.0); Immature Grans, Automated 0.5 %; Lymphocytes # (A) 1.39 X 10*3/uL (0.90-5.00); Lymphocytes % (A) 12.3 %; MCH 27.7 pg (27.0-32.0); MCV 89.6 fL (80.0-97.0); Monocytes # (A) 1.11 X 10*3/uL (0.20-1.00); Monocytes % (A) 9.8 %; NRBC Per 100 WBC 0 /100 WBCS (0.0-0.0); Neutrophils # (A) 8.66 X 10*3/uL (1.80-7.70); Neutrophils % (A) 76.8 %; Platelet Count 316 X 10*3/uL (140-440); RBC 3.93 X 10*6/uL (4.40-5.60); RDW 15.5 % (11.5-14.5); WBC 11.28 X 10*3/uL (4.50-10.00)
== END | disposition home or self-care (01) ==
LOC: LABWHC1 11:29
PROVIDERS: ATTEND Internal Medicine
DX: M10.9 Gout, unspecified (principal); M25.572 Pain in left ankle and joints of left foot
CPT/HCPCS: 36415; 80048; 84550; 85025

== ENCOUNTER → 2022-10-06 | Outpatient (CLI) | payer MEDICARE ==
--- NOTE | 2022-10-06 11:56 | XR ---
EXAMINATION TYPE: XR femur RT DATE OF EXAM: 10/06/2022 CLINICAL HISTORY: Pain. TECHNIQUE: Two views of the right femur are obtained. COMPARISON: None FINDINGS: There is no acute fracture or dislocation seen in the right femur. Right hip joint appears within normal limits. [id number] tricompartment joint space loss in the right knee is seen. Th ere is some vascular calcification in the overlying soft tissue noted. IMPRESSION: As above.
--- NOTE | 2022-10-06 11:58 | XR ---
EXAMINATION TYPE: XR sacroiliac joint comp BILAT DATE OF EXAM: 10/06/2022 COMPARISON: CT abdomen and pelvis November 22, 2019 HISTORY: Pelvic and bilateral sacroiliac joint pain TECHNIQUE: 2 views of the bilateral sacroiliac joints. FINDINGS: Sacroiliac joints appear symmetric and felt within normal limits. No asymmetric narrowing o r spurring. No asymmetric sclerosis is identified. Some overlying pelvic arterial vascular calcificat ion is seen. There are 3 gold therapy seeds in the prostate overlying the pubic symphysis. IMPRESSION: As above.
== END | disposition home or self-care (01) ==
LOC: RADXRMAIN 10:43
PROVIDERS: ATTEND Internal Medicine
DX: M46.1 Sacroiliitis, not elsewhere classified (principal); M53.3 Sacrococcygeal disorders, not elsewhere classified; M25.551 Pain in right hip
CPT/HCPCS: 72202

== ENCOUNTER → 2022-11-12 | Outpatient (CLI) | payer MEDICARE ==
[2022-11-12 16:18] LABS: BUN/Creat Ratio 11.75 Ratio (12.00-20.00); Blood Urea Nitrogen 18.8 mg/dL (9.0-27.0); C Reactive Protein <0.30 mg/dL (0.00-0.80); Calcium 8.7 mg/dL (8.7-10.3); Carbon Dioxide 21.4 mmol/L (21.6-31.8); Chloride 109 mmol/L (96-109); Creatine Kinase 127 U/L (35-257); Glucose 75 mg/dL (70-110); Potassium 4.2 mmol/L (3.5-5.5); Sodium 142 mmol/L (135-145)
[2022-11-12 16:24] LABS: HCT 32.4 % (39.6-50.0); HGB 10.4 d/dL (12.0-15.0); MCH 28.7 pg (27.0-32.0); MCHC 32.1 d/dL (32.0-37.0); MCV 89.3 FL (80.0-97.0); Mean Platelet Volume 9.5 FL (9.5-12.2); NRBC Per 100 WBC 0 X 10*3/uL (0.00-0.01); Platelet Count 437 X 10*3/uL (140-440); RBC 3.63 X 10*6/uL (4.40-5.60); RDW 14.4 % (11.5-14.5); WBC 13.81 X 10*3/uL (4.50-10.00)
[2022-11-12 17:19] LABS: Acanthocytes 2+; Basophils # (M) 0.14 X 10*3/uL (0.00-0.10); Elliptocytes 2+; Eosinophils # (M) 0.69 X 10*3/uL (0.04-0.35); Lymphocytes # (M) 1.24 X 10*3/uL (0.90-5.00); Neutrophils % (M) 77 %
[2022-11-12 17:35] LABS: Anti-DNA, DS unit <1.0 IU/mL; DNA Double-Stranded Negative (Negative)
[2022-11-12 17:56] LABS: Erythrocyte Sedimentation Rate 38 mm/Hr (0-20)
[2022-11-15 09:33] LABS: Neutrophils # (M) 10.63 X 10*3/uL (1.80-7.70)
== END | disposition home or self-care (01) ==
LOC: LABWHC1 10:40
PROVIDERS: ATTEND Internal Medicine
DX: E87.8 Other disorders of electrolyte and fluid balance, not elsewhere classified (principal); M35.3 Polymyalgia rheumatica
CPT/HCPCS: 36415; 80048; 82533; 82550; 85025; 85652; 86038; 86140; 86225

== ENCOUNTER → 2023-01-18 | Outpatient (CLI) | payer MEDICARE ==
--- NOTE | 2023-01-18 11:28 | XR ---
EXAMINATION TYPE: XR Hip Bilateral Complete DATE OF EXAM: 01/18/2023 CLINICAL HISTORY: pain TECHNIQUE: 2 views of the bilateral hips are submitted. COMPARISON: None. FINDINGS: There is no acute fracture/dislocation evident. The joint space appears mildly narrowed. The overlying soft tissue appears unremarkable. IMPRESSION: 1. There is no acute fracture or dislocation. ICD 10 NO FRACTURE, INITIAL EVALUATION
== END | disposition home or self-care (01) ==
LOC: RADXRMAIN 10:26
PROVIDERS: ATTEND Internal Medicine
DX: M25.552 Pain in left hip (principal); M25.551 Pain in right hip
CPT/HCPCS: 73521

== ENCOUNTER 2023-03-15 14:01 | Inpatient (IN) | payer MEDICARE ==
[2023-03-15] MEDS ORDERED: IPRATROPIUM 0.5 MG/2.5 ML NEBU INHALATION STA (14:08)
[2023-03-15] MEDS ORDERED: methylPREDNISolone SOD SUCCI 125 MG/2 ML VIAL IV STA (14:08)
[2023-03-15] MEDS ORDERED: ALBUTEROL NEBULIZED 2.5 MG/3 ML INHALATION STA (14:08)
--- NOTE | 2023-03-15 14:12 | ED ---
General Adult HPI - General Stated complaint: YENNIFER Time Seen by Provider: 03/15/23 14:01 Source: patient, EMS, RN notes reviewed, old records reviewed - History of Present Illness Initial comments: This is an 83-year-old male who presents emergency Department complaining of difficulty breathing. Patient states the difficulty breathing is benign going for a couple weeks and getting progressively worse. Patient never took his t emperature but he feels as though his had a fever and has had the chills at times. Patient denies any history could just par for her. Patient denies any history of COPD per patient states she's never smoked. EMS states when they arrived they thought his been a passout is so unsteady on his feet and breathing so hard once again him on the gurney I gave him a breathing treatment he was doing somewhat better. Patient denies any chest pain or abdominal pain. Patient's headache patient denies numbness or weakness. - Related Data Home Medications Medication Instructions Recorded Confirmed Metoprolol Tartrate 25 mg PO BID 05/27/17 03/15/23 Montelukast [Singulair] 10 mg PO DAILY 05/27/17 03/15/23 Theophylline 12 Hour [Silvio-Dur] 300 mg PO BID 05/27/17 03/15/23 Atorvastatin [Lipitor] 80 mg PO HS 11/22/19 03/15/23 Famotidine [Pepcid] 20 mg PO BID 11/22/19 03/15/23 Levothyroxine Sodium [Synthroid] 50 mcg PO DAILY 11/22/19 03/15/23 Donepezil [Aricept] 10 mg PO HS 03/15/23 03/15/23 Losartan [Cozaar] 50 mg PO DAILY 03/15/23 03/15/23 Memantine [Namenda] 10 mg PO BID 03/15/23 03/15/23 Allergies Allergy/AdvReac Type Severity Reaction Status Date / Time ciprofloxacin [From Cipro] Allergy Rash/Hives Verified 03/15/23 17:27 Review of Systems ROS Statement: Those systems with pertinent positive or pertinent negative responses have been documented in the HPI. ROS Other: All systems not noted in ROS Statement are negative. Past Medical History Past Medical History: Coronary Artery Disease (CAD), COPD, Dementia, GERD/Reflux, Hyperlipidemia, Hypertension Additional Past Medical History / Comment(s): dysphagia, states some memory loss History of Any Multi-Drug Resistant Organisms: None Reported Past Surgical History: Cholecystectomy, Heart Catheterization With Stent Additional Past Surgical History / Comment(s): corbin cataracts, EGD Past Anesthesia/Blood Transfusion Reactions: No Reported Reaction Date of Last Stent Placement:: unknown Past Psychological History: No Psychological Hx Reported Smoking Status: Never smoker Past Alcohol Use History: None Reported Past Drug Use History: None Reported - Past Family History Mother Family Medical History: Cancer Father Family Medical History: Cancer General Exam - General Exam Comments Initial Comments: GENERAL: Patient is well-developed and well-nourished. Patient is nontoxic and well- hydrated and is in moderate distress. ENT: Neck is soft and supple. No significant lymphadenopathy is noted. Oropharynx is clear. Moist mucous membranes. Neck has full range of motion without eliciting any pain. EYES: The sclera were anicteric and conjunctiva were pink and moist. Extraocular movements were intact and pupils were equal round and reactive to light. Eyelids were unremarkable. PULMONARY: Patient has expiratory wheezing diffusely CARDIOVASCULAR: There is a regular rate and rhythm without any murmurs gallops or rubs. ABDOMEN: Soft and nontender with normal bowel sounds. SKIN: Skin is clear with no lesions or rashes and otherwise unremarkable. NEUROLOGIC: Patient is alert and oriented x3. Cranial nerves II through XII are grossly intact. Motor and sensory are also intact. Normal speech, volume and content. Symmetrical smile. MUSCULOSKELETAL: Normal extremities with adequate strength and full range of motion. No lower extremity swelling or edema. No calf tenderness. LYMPHATICS: No significant lymphadenopathy is noted PSYCHIATRIC: Normal psychiatric evaluation. Course Vital Signs 03/15/23 03/15/23 03/15/23 14:06 15:01 15:27 Temperature 97.8 F Pulse Rate 104 H 90 Respiratory 24 20 18 Rate Blood Pressure 151/90 O2 Sat by Pulse 96 Oximetry 03/15/23 15:47 Temperature Pulse Rate 98 Respiratory 18 Rate Blood Pressure O2 Sat by Pulse Oximetry Medical Decision Making - Medical Decision Making EKG was interpreted by myself pretty EKG shows sinus tachycardia at 106 bpm [place] interval 179 QRS is under 26 QT interval 347 QTC is 409. This EKG shows no ST segment elevation or depression patient has a right bundle branch block. Was pt. sent in by a medical professional or institution (, PA, FIELD SUPPORT REPRESENTATIVE, urgent care, hospital, or [facility]...) When possible be specific @ -No Did you speak to anyone other than the patient for history (EMS, parent, family, police, friend...)? What history was obtained from this source @ -EMS gave a lot of the history because the patient was having a difficult time speaking at first Did you review nursing and triage notes (agree or disagree)? Why? @ -I reviewed and agree with nursing and triage notes Were old charts reviewed (outside hosp., previous admission, EMS record, old EKG, old radiological studies, urgent care reports/EKG's, [facility] records)? Report findings @ -I reviewed prior charts from prior lab work Differential Diagnosis (chest pain, altered mental status, abdominal pain women, abdominal pain men, vaginal bleeding, weakness, fever, dyspnea, syncope, headache, dizziness, GI bleed, back pain, seizure, CVA, palpatations, mental health, musculoskeletal)? @ -Differential Dyspnea: Coronary syndrome, arrhythmia, tamponade, asthma, COPD, pulmonary embolism, pneumonia, pneumothorax, pulmonary effusion, anaphylaxis, diabetic ketoacidosis, flailed chest, pulmonary contusion, diaphragmatic rupture, anemia, neuromuscular, this is not meant to be an all-inclusive list. EKG interpreted by me (3pts min.). @ -As above X-rays interpreted by me (1pt min.). @ -Chest x-ray shows no acute abnormality CT interpreted by me (1pt min.). @ -None done U/S interpreted by me (1pt. min.). @ -None done What testing was considered but not performed or refused? (CT, X-rays, U/S, labs)? Why? @ -None What meds were considered but not given or refused? Why? @ -None Did you discuss the management of the patient with other professionals (professionals i.e. , PA, FIELD SUPPORT REPRESENTATIVE, lab, RT, psych nurse, social and human services assistant, criminal justice lawyer, teacher, correction officer city or county jail, case investigator)? Give summary @ -I spoke with Dr. Griffin and he agreed to admit the patient. Was smoking cessation discussed for >3mins.? @ -No Was critical care preformed (if so, how long)? @ -35 minutes Were there social determinants of health that impacted care today? How? (Homelessness, low income, unemployed, alcoholism, drug addiction, transportation, low edu. Level, literacy, decrease access to med. care, [facility], rehab)? @ -No Was there de-escalation of care discussed even if they declined (Discuss DNR or withdrawal of care, Hospice)? DNR status @ -No What co-morbidities impacted this encounter? (DM, HTN, Smoking, COPD, CAD, Cancer, CVA, ARF, Chemo, Hep., AIDS, mental health diagnosis, sleep apnea, morbid obesity)? @ -None Was patient admitted / discharged? Hospital course, mention meds given and route, prescriptions, significant lab abnormalities, going to OR and other pertinent info. @ -Patient received multiple breathing treatments in the emergency department and continued to wheeze though he was improved. Patient also received Rocephin as well as steroids. I spoke with Dr. Griffin he wanted the patient admitted and he wanted pulmonary consult. Undiagnosed new problem with uncertain prognosis? @ -No Drug Therapy requiring intensive monitoring for toxicity (Heparin, Nitro, Insulin, Cardizem)? @ -No Were any procedures done? @ -No Diagnosis/symptom? @ -COPD exacerbation Acute, or Chronic, or Acute on Chronic? @ -Acute Uncomplicated (without systemic symptoms) or Complicated (systemic symptoms)? @ -Complicated Side effects of treatment? @ -No Exacerbation, Progression, or Severe Exacerbation? @ -No Poses a threat to life or bodily function? How? (Chest pain, USA, NC, pneumonia, PE, COPD, DKA, ARF, appy, cholecystitis, CVA, Diverticulitis, Homicidal, Suicidal, threat to staff... and all critical care pts) @ -No - Lab Data Result diagrams: 03/15/23 14:35 03/15/23 14:35 Lab Results 03/15/23 03/15/23 03/15/23 Range/Units 14:35 14:35 14:35 WBC 10.0 (3.8-10.6) k/uL RBC 4.05 L (4.30-5.90) m/uL Hgb 11.9 L (13.0-17.5) gm/dL Hct 34.6 L (39.0-53.0) % MCV 85.4 (80.0-100.0) fL MCH 29.4 (25.0-35.0) pg MCHC 34.4 (31.0-37.0) g/dL RDW 14.4 (11.5-15.5) % Plt Count 393 (150-450) k/uL MPV 7.6 Neutrophils % 55 % Lymphocytes % 22 % Monocytes % 8 % Eosinophils % 12 % Basophils % 0 % Neutrophils # 5.5 (1.3-7.7) k/uL Lymphocytes # 2.2 (1.0-4.8) k/uL Monocytes # 0.8 (0-1.0) k/uL Eosinophils # 1.2 H (0-0.7) k/uL Basophils # 0.0 (0-0.2) k/uL PT 10.7 (10.0-12.5) sec INR 1.0 (<1.2) APTT 21.5 L (22.0-30.0) sec Sodium 139 (137-145) mmol/L Potassium 4.3 (3.5-5.1) mmol/L Chloride 106 (98-107) mmol/L Carbon Dioxide 19 L (22-30) mmol/L Anion Gap 14 mmol/L BUN 20 (9-20) mg/dL Creatinine 1.90 H (0.66-1.25) mg/dL Est GFR (CKD-EPI)AfAm 36 (>60 ml/min/1.73 sqM) Est GFR (CKD-EPI)NonAf 31 (>60 ml/min/1.73 sqM) Glucose 91 (74-99) mg/dL Plasma Lactic Acid Lawson (0.7-2.0) mmol/L Calcium 9.5 (8.4-10.2) mg/dL Magnesium 1.8 (1.6-2.3) mg/dL Total Bilirubin 0.4 (0.2-1.3) mg/dL AST 32 (17-59) U/L ALT 23 (4-49) U/L Alkaline Phosphatase 108 (38-126) U/L Troponin I (0.000-0.034) ng/mL Total Protein 6.5 (6.3-8.2) g/dL Albumin 3.7 (3.5-5.0) g/dL Influenza Type A (PCR) (Not Detectd) Influenza Type B (PCR) (Not Detectd) RSV (PCR) (Not Detectd) SARS-CoV-2 (PCR) (Not Detectd) 03/15/23 03/15/23 03/15/23 Range/Units 14:35 14:35 14:35 WBC (3.8-10.6) k/uL RBC (4.30-5.90) m/uL Hgb (13.0-17.5) gm/dL Hct (39.0-53.0) % MCV (80.0-100.0) fL MCH (25.0-35.0) pg MCHC (31.0-37.0) g/dL RDW (11.5-15.5) % Plt Count (150-450) k/uL MPV Neutrophils % % Lymphocytes % % Monocytes % % Eosinophils % % Basophils % % Neutrophils # (1.3-7.7) k/uL Lymphocytes # (1.0-4.8) k/uL Monocytes # (0-1.0) k/uL Eosinophils # (0-0.7) k/uL Basophils # (0-0.2) k/uL PT (10.0-12.5) sec INR (<1.2) APTT (22.0-30.0) sec Sodium (137-145) mmol/L Potassium (3.5-5.1) mmol/L Chloride (98-107) mmol/L Carbon Dioxide (22-30) mmol/L Anion Gap mmol/L BUN (9-20) mg/dL Creatinine (0.66-1.25) mg/dL Est GFR (CKD-EPI)AfAm (>60 ml/min/1.73 sqM) Est GFR (CKD-EPI)NonAf (>60 ml/min/1.73 sqM) Glucose (74-99) mg/dL Plasma Lactic Acid Lawson 2.8 H* (0.7-2.0) mmol/L Calcium (8.4-10.2) mg/dL Magnesium (1.6-2.3) mg/dL Total Bilirubin (0.2-1.3) mg/dL AST (17-59) U/L ALT (4-49) U/L Alkaline Phosphatase (38-126) U/L Troponin I <0.012 (0.000-0.034) ng/mL Total Protein (6.3-8.2) g/dL Albumin (3.5-5.0) g/dL Influenza Type A (PCR) Not Detected (Not Detectd) Influenza Type B (PCR) Not Detected (Not Detectd) RSV (PCR) Not Detected (Not Detectd) SARS-CoV-2 (PCR) Not Detected (Not Detectd) Critical Care Time Critical Care Time: Yes Total Critical Care Time: 35 Disposition Clinical Impression: COPD exacerbation Disposition: ADMITTED IP TO THIS HOSP Referrals: Kevin Griffin MD [Primary Care Provider] - 1-2 days Time of Disposition: 17:58
--- NOTE | 2023-03-15 15:22 | XR ---
EXAMINATION TYPE: XR chest 2V DATE OF EXAM: 03/15/2023 COMPARISON: 12/30/2019 HISTORY: 83 year-old male shortness of breath, difficulty breathing TECHNIQUE: AP and lateral views FINDINGS: Heart upper limits of normal in size. Mild tortuosity/ectasia of the thoracic aorta. There is hyperin flation. Mild interstitial prominence but without consolidation or pleural effusion. IMPRESSION: Possible underlying COPD. Clinically correlate. No definite acute process.
[2023-03-15 15:26] LABS: Basophils % (A) 0 %; Eosinophils # (A) 1.2 k/uL (0-0.7); Eosinophils % (A) 12 %; HCT 34.6 % (39.0-53.0); HGB 11.9 gm/dL (13.0-17.5); Lymphocytes # (A) 2.2 k/uL (1.0-4.8); Lymphocytes % (A) 22 %; MCH 29.4 pg (25.0-35.0); MCHC 34.4 g/dL (31.0-37.0); MCV 85.4 fL (80.0-100.0); Mean Platelet Volume 7.6; Monocytes # (A) 0.8 k/uL (0-1.0); Monocytes % (A) 8 %; Neutrophils # (A) 5.5 k/uL (1.3-7.7); Neutrophils % (A) 55 %; Platelet Count 393 k/uL (150-450); RBC 4.05 m/uL (4.30-5.90); RDW 14.4 % (11.5-15.5)
[2023-03-15 15:39] LABS: ALT 23 U/L (4-49); AST 32 U/L (17-59); African American GFR (CKD) 36 (>60 ml/min/1.73 sqM); Albumin 3.7 g/dL (3.5-5.0); Alkaline Phosphatase 108 U/L (38-126); Anion Gap 14 mmol/L; Blood Urea Nitrogen 20 mg/dL (9-20); Calcium 9.5 mg/dL (8.4-10.2); Carbon Dioxide 19 mmol/L (22-30); Chloride 106 mmol/L (98-107); Glucose 91 mg/dL (74-99); Magnesium 1.8 mg/dL (1.6-2.3); Non-African American GFR(CKD) 31 (>60 ml/min/1.73 sqM); Potassium 4.3 mmol/L (3.5-5.1); Sodium 139 mmol/L (137-145); Total Bilirubin 0.4 mg/dL (0.2-1.3); Total Protein 6.5 g/dL (6.3-8.2)
[2023-03-15 15:45] LABS: Prothrombin Time 10.7 sec (10.0-12.5)
[2023-03-15 15:59] LABS: Partial Thromboplastin Time 21.5 sec (22.0-30.0)
[2023-03-15] MEDS ORDERED: NALOXONE 0.4 MG/ML 1 ML VIAL IVP PRN (17:58)
[2023-03-15] MEDS ORDERED: IPRATROPIUM-ALBUTEROL 3 ML NEB INHALATION PRN (17:58)
[2023-03-15] MEDS: methylPREDNISolone SOD SUCCI 125 MG/2 ML VIAL IV SCH ×2 (18:59→23:45)
[2023-03-15] MEDS: AMOXIC-POT CLAV 875-125MG 1 EACH TAB PO SCH (21:35)
[2023-03-15] MEDS: IPRATROPIUM-ALBUTEROL 3 ML NEB INHALATION SCH (21:37)
[2023-03-15] MEDS: SODIUM CHLORIDE 0.9% 1,000 ML IV SCH (22:43)
[2023-03-16] MEDS: methylPREDNISolone SOD SUCCI 125 MG/2 ML VIAL IV SCH ×4 (05:57→23:53)
[2023-03-16] MEDS: AMOXIC-POT CLAV 875-125MG 1 EACH TAB PO SCH ×2 (08:14→20:35)
[2023-03-16] MEDS: IPRATROPIUM-ALBUTEROL 3 ML NEB INHALATION SCH ×4 (08:15→20:10)
[2023-03-16] MEDS ORDERED: FAMOTIDINE 20 MG TAB PO SCH (09:30)
[2023-03-16 10:53] LABS: Appearance,Urine Clear (Clear); Bilirubin,Urine Negative (Negative); Blood,Urine Negative (Negative); Color,Urine Yellow; Glucose,Urine (UA) Negative (Negative); Ketones,Urine 1+ (Negative); Leukocyte Esterase,Urine Negative (Negative); Nitrite,Urine Negative (Negative); Protein,Urine Trace (Negative); Specific Gravity,Urine 1.027 (1.001-1.035); Urobilinogen,Urine <2.0 mg/dL (<2.0)
[2023-03-16 11:29] LABS: Basophils # (A) 0.03 X 10*3/uL (0.00-0.10); Basophils % (A) 0.4 %; Eosinophils # (A) 0 X 10*3/uL (0.04-0.35); Eosinophils % (A) 0 %; HCT 35.1 % (39.6-50.0); HGB 11.5 g/dL (13.0-17.0); Lymphocytes # (A) 0.77 X 10*3/uL (0.90-5.00); MCH 27.8 pg (27.0-32.0); MCHC 32.8 g/dL (32.0-37.0); Mean Platelet Volume 9.4 FL (9.5-12.2); Monocytes # (A) 0.13 X 10*3/uL (0.20-1.00); Monocytes % (A) 1.7 %; NRBC Per 100 WBC 0 X 10*3/uL (0.00-0.01); Neutrophils # (A) 6.74 X 10*3/uL (1.80-7.70); Neutrophils % (A) 87.4 %; Platelet Count 360 X 10*3/uL (140-440); RBC 4.13 X 10*6/uL (4.40-5.60); RDW 14.6 % (11.5-14.5); WBC 7.71 X 10*3/uL (4.50-10.00)
[2023-03-16] MEDS: SODIUM CHLORIDE 0.9% 1,000 ML IV SCH (11:30)
[2023-03-16] MEDS: MONTELUKAST 10 MG TAB PO SCH (11:34)
[2023-03-16] MEDS: LEVOTHYROXINE 50 MCG TAB PO SCH (11:34)
[2023-03-16] MEDS: METOPROLOL TARTRATE 25 MG TAB PO SCH ×2 (11:34→20:35)
[2023-03-16] MEDS: FAMOTIDINE 20 MG TAB PO SCH (11:34)
[2023-03-16] MEDS: LOSARTAN 50 MG TAB PO SCH (11:34)
[2023-03-16] MEDS: MEMANTINE 10 MG TAB PO SCH ×2 (11:34→20:35)
--- NOTE | 2023-03-16 12:15 | P.HPIM ---
History of Present Illness H&P Date: 03/16/23 (Dementia) Chief Complaint: Severe shortness of breath wheezing not controlled as outpatient History of physical Date of service 03/16/[address] Griffin Patient presented to the emergency room where he was seen and evaluated by Dr. Santiago in the ER Found the patient was severely short of breath and as well as wheezing rhonchi's, started on his inhalation therapy improved minimally and the request for admission spatially his lactic acid was 3 could be associated with his respiratory problem and he stated that he will be consulting as well Dr. Orozco that he has been seen him as outpatient. Current medical illness he had multiple medical problemntin 10 mg twice a day History of COPD with exacerbation has been seen in the past by Dr. Schreiber and Dr. Orozco. He had history of prostate cancer treated with radiation therapy and history of chronic kidney disease stage III, History of arthropathy of the joints, history of progressive dementia with wobbly gait. He had heart catheterization in 05/26/2007 with the angioplasty and 1 stent Symptoms associated with cognitive function. He had with the history of prostate cancer was radiated by Dr. Cardona with a [place] 7 over it underlying status post radiation He had disturbance in the remote and anxiety He had also history of ptosis of the eyelid and of the left side worse than the right side. History of primary essential hypertension. Functional urinary incontinence post radiation, sees a ALLERGIC rhinitis. 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 ALLERGY Cipro, Bactrim DS, Diflucan, Levaquin, Vioxx,. Family history We'll do her No drink alcohol, no murmurs smoke, Family history 2 daughters. 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 Past history prostate radiation in . History of hypothyroidism hyperlipidemia GERD disease asthma and COPD on inhalers however patient forget with his dementia the treatment. His medication: He is on levothyroxine 50 g every morning Theophylline 300 mg tablet extended release 1 tablet twice a day Aricept at bedtime 10 mg memantin 10 mg twice a day Flovent HFA 44 g 2 puffs twice a day Losartan 50 mg once a day Metoprolol tartrate 25 mg twice a day. Albuterol 90 g per inhaler 2 puffs 4 times a day vitamin B12 1000 g lozenges once a day Tylenol 325 mg 2 tablet when necessary MiraLAX for constipation 17 g dissolved in juice or water MiraLAX powder reconstitution 17 g 4 chronic constipation once a day when necessary next aspirin 81 mg once a day Multivitamin 1 tablet once a day. Review of system: All was complaining of drooping of the of his left eye but no ophthalmology he visited able to help him. Neuropsychiatry: Patient is forget fullness live alone and he forget to take his medication at home and he is unable to recall all the rest of his medication and he has to daughter unfortunately they are also sick. And he really needed nursing home and consultation with neurologist. Cardiovascular denied any chest pain and he had a stent as mentioned above Pulmonary shortness of breath wheezing and he had on this admission elevated lactic acid GI no symptoms no symptoms Endocrine thyroid disease Musculoskeletal he is wobbly on his feet. Unclear his left facial abnormalities is related to TIA or stroke in the past. The rest of review of system was noncontributory Physical exam Conscious alert oriented as seen in the hospital and he was with the monitor for getting up. Bullous and move with the underlying dementia. Could not remember his medication and he aware of that. Vital signs on admission temperature 98.1 F oral Heart rate tachycardia 109 with the EKG sinus tachycardia with right bundle branch block The head was normocephalic and atraumatic pupil was equal reactive however he had a drooping of the eyelid on the left eye and facial asymmetry. Oropharynx he had natural teeth Hearing minimally affected Neck was supple no JVD no thyromegaly no lymphadenopathy trachea midline. Chest: Bilateral rhonchi's in the wheezes and as he presented as well at the time of exam however improved with the treatment rendered. Heart regular sinus rhythm with tachycardia on admission Abdomen soft positive bowel sounds no organ enlargement Extremities no edema and positive pulses. Neurologically: Dementia with extreme for forgetfulness and inability to remember his medication as well as drooping of his left eyelid and the wobbly feet with walking Assessment: #1 acute exacerbation of COPD #2 dementia with unclear gait disturbance and left facial abnormality #3 hypothyroidism stable #4 history of stent with no chest pain. #5 history of hypertension stable currently Plan: #1 patient will be seen by pulmonary and critical care Dr. Orozco/Dr. Gaspar #2 continue the current medication #3 seen in the neurology evaluation with the multiple dementia progression as well as the left facial abnormality and drooping of the eyelid. We'll #4 continue monitoring. Past Medical History Past Medical History: Coronary Artery Disease (CAD), COPD, Dementia, GERD/Reflux, Hyperlipidemia, Hypertension Additional Past Medical History / Comment(s): dysphagia, states some memory loss History of Any Multi-Drug Resistant Organisms: None Reported Past Surgical History: Cholecystectomy, Heart Catheterization With Stent Additional Past Surgical History / Comment(s): corbin cataracts, EGD Past Anesthesia/Blood Transfusion Reactions: No Reported Reaction Date of Last Stent Placement:: unknown Past Psychological History: No Psychological Hx Reported Additional Psychological History / Comment(s): memory loss Smoking Status: Never smoker Past Alcohol Use History: None Reported Past Drug Use History: None Reported - Past Family History Mother Family Medical History: Cancer Father Family Medical History: Cancer Medications and Allergies Home Medications Medication Instructions Recorded Confirmed Type Metoprolol Tartrate 25 mg PO BID 05/27/17 03/15/23 History Montelukast [Singulair] 10 mg PO DAILY 05/27/17 03/15/23 History Theophylline 12 Hour [Silvio-Dur] 300 mg PO BID 05/27/17 03/15/23 History Atorvastatin [Lipitor] 80 mg PO HS 11/22/19 03/15/23 History Famotidine [Pepcid] 20 mg PO BID 11/22/19 03/15/23 History Levothyroxine Sodium [Synthroid] 50 mcg PO DAILY 11/22/19 03/15/23 History Donepezil [Aricept] 10 mg PO HS 03/15/23 03/15/23 History Losartan [Cozaar] 50 mg PO DAILY 03/15/23 03/15/23 History Memantine [Namenda] 10 mg PO BID 03/15/23 03/15/23 History Allergies Allergy/AdvReac Type Severity Reaction Status Date / Time ciprofloxacin [From Cipro] Allergy Rash/Hives Verified 03/15/23 17:27 Physical Exam Vitals: Vital Signs Temp Pulse Pulse Resp BP BP BP 03/16/23 08:25 97 03/16/23 08:15 96 03/16/23 08:00 98.5 F 101 H 17 132/72 03/16/23 06:59 20 03/16/23 01:21 98.1 F 110 H 26 H 126/77 03/15/23 21:49 20 03/15/23 21:25 98.1 F 109 H 20 124/61 03/15/23 19:14 105 H 16 129/66 03/15/23 15:47 98 18 03/15/23 15:27 90 18 03/15/23 15:01 20 03/15/23 14:06 97.8 F 104 H 24 151/90 Pulse Ox 03/16/23 08:25 03/16/23 08:15 03/16/23 08:00 93 L 03/16/23 06:59 03/16/23 01:21 93 L 03/15/23 21:49 03/15/23 21:25 94 L 03/15/23 19:14 96 03/15/23 15:47 03/15/23 15:27 03/15/23 15:01 03/15/23 14:06 96 Intake and Output 03/15/23 03/16/23 03/16/23 22:59 06:59 14:59 Intake Total 240 240 Balance 240 240 Intake: Oral 240 240 Other: Voiding Method Toilet Toilet Urinal # Voids 2 Weight 81.647 kg Results CBC & Chem 7: 03/16/23 06:39 03/15/23 14:35 Labs: Abnormal Lab Results - Last 24 Hours (Table) 03/15/23 03/15/23 03/15/23 Range/Units 14:35 14:35 14:35 RBC 4.05 L (4.30-5.90) m/uL Hgb 11.9 L (13.0-17.5) gm/dL Hct 34.6 L (39.0-53.0) % RDW (11.5-14.5) % MPV (9.5-12.2) FL Lymphocytes # (0.90-5.00) X 10*3/uL Monocytes # (0.20-1.00) X 10*3/uL Eosinophils # 1.2 H (0-0.7) k/uL APTT 21.5 L (22.0-30.0) sec Carbon Dioxide 19 L (22-30) mmol/L Creatinine 1.90 H (0.66-1.25) mg/dL Plasma Lactic Acid Lawson (0.7-2.0) mmol/L Urine Protein (Negative) Urine Ketones (Negative) 03/15/23 03/15/23 03/15/23 Range/Units 14:35 18:41 21:24 RBC (4.30-5.90) m/uL Hgb (13.0-17.5) gm/dL Hct (39.0-53.0) % RDW (11.5-14.5) % MPV (9.5-12.2) FL Lymphocytes # (0.90-5.00) X 10*3/uL Monocytes # (0.20-1.00) X 10*3/uL Eosinophils # (0-0.7) k/uL APTT (22.0-30.0) sec Carbon Dioxide (22-30) mmol/L Creatinine (0.66-1.25) mg/dL Plasma Lactic Acid Lawson 2.8 H* 2.1 H* 4.1 H* (0.7-2.0) mmol/L Urine Protein (Negative) Urine Ketones (Negative) 03/16/23 03/16/23 03/16/23 Range/Units 00:10 06:39 10:25 RBC 4.13 L (4.30-5.90) m/uL Hgb 11.5 L (13.0-17.5) gm/dL Hct 35.1 L (39.0-53.0) % RDW 14.6 H (11.5-14.5) % MPV 9.4 L (9.5-12.2) FL Lymphocytes # 0.77 L (0.90-5.00) X 10*3/uL Monocytes # 0.13 L (0.20-1.00) X 10*3/uL Eosinophils # 0 L (0-0.7) k/uL APTT (22.0-30.0) sec Carbon Dioxide (22-30) mmol/L Creatinine (0.66-1.25) mg/dL Plasma Lactic Acid Lawson 3.0 H* (0.7-2.0) mmol/L Urine Protein Trace H (Negative) Urine Ketones 1+ H (Negative) Thrombosis Risk Factor Assmnt - Choose All That Apply Each Factor Represents 1 point: Abnormal pulmonary function (COPD) Each Risk Factor Represents 3 Points: Age 75 years or older Thrombosis Risk Factor Assessment Total Risk Factor Score: 4 Thrombosis Risk Factor Assessment Level: Moderate Risk
[2023-03-16 13:54] LABS: BUN/Creat Ratio 12.84 Ratio (12.00-20.00); Blood Urea Nitrogen 24.4 mg/dL (9.0-27.0); Calcium 9.5 mg/dL (8.7-10.3); Carbon Dioxide 17.4 mmol/L (21.6-31.8); Chloride 106 mmol/L (96-109); Glucose 136 mg/dL (70-110); Potassium 5.1 mmol/L (3.5-5.5); Sodium 138 mmol/L (135-145)
--- NOTE | 2023-03-16 14:10 | CT ---
EXAMINATION TYPE: CT brain wo con CT DLP: 1098.8 mGycm, Automated exposure control for dose reduction was used. DATE OF EXAM: 03/16/2023 2:04 PM COMPARISON: Prior CT Brain from 07/09/2016 . CLINICAL INDICATION:Male, 83 years old with history of confusion, Confusion TECHNIQUE: Brain: Multiple axial CT images of the brain were obtained without IV contrast. . Coronal and sagitta l reformats reviewed. FINDINGS: Brain: Extra-axial spaces: No abnormal extra-axial fluid collections. Ventricular system: Within normal limits Cerebral parenchyma: Cerebral atrophy. No acute intraparenchymal hemorrhage or mass effect. The chaidez -white junction is well differentiated. Scattered hypoattenuating areas are seen within the periventr icular white matter. Cerebellum: Unremarkable. Mass effect: No evidence of midline shift. Intracranial vasculature: unremarkable Soft tissues: Normal. Calvarium/osseous structures: No depressed skull fracture. Paranasal sinuses and mastoid air cells: The air cells are clear. Mild mucosal thickening of the bila teral maxillary sinuses and left ethmoid sinus. Nasal septal deviation with spurring to the left. Visualized orbits: Bilateral aphakia IMPRESSION: 1. No acute intracranial process. 2. Nonspecific white matter changes, likely secondary to chronic small vessel ischemic disease.
--- NOTE | 2023-03-16 15:10 | P.CNPUL ---
History of Present Illness Consult date: 03/16/23 Requesting physician: Kevin Griffin Reason for consult: dyspnea, COPD, hypoxemia Chief complaint: Confusion, shortness of breath. History of present illness: Pulmonary consult dated 03/16/2023. 83-year-old male who presented to the emergency department, at about 2:00 in the afternoon, on March 15. He apparently complained of being short of breath. He states he has been having shortness of breath, which is been progressively worse, over the last couple weeks. He also complained of fever and chills. The patient apparently has a history of coronary disease, COPD, dementia, gastroesophageal reflux disease, hypertension, and hyperlipidemia. He's had a previous heart catheterization with stent. The patient has been consulted, and, with skeletal have a CAT scan of the brain, an EEG. Currently, the patient's on room air. Is not receiving any IV fluids. Laboratory data includes a white count of 7.7, hemoglobin 11.5, hematocrit 35.1, and a normal platelet count. Sodium 138, potassium 5.1, chlorides 106, CO2 17, anion gap 15, BUN 24, and creatinine 1.9. Glucose 136. Urine was negative. Lactic acid initially 4.1, then 3, and then 1.4. Troponin was negative. Liver enzymes are normal. Testing for influenza, RSV, and coronavirus are all negative. Chest x-ray was positive for COPD. Brain CT showed nothing acute. Review of Systems REVIEW OF SYSTEMS: CONSTITUTIONAL: [Negative.] NEUROLOGIC: Confusion, dementia. HEENT: [ Negative.] CARDIAC: [Negative.] PULMONARY: Shortness of breath, wheezing. GI: [Negative.] : [Negative.] RHEUMATOLOGIC: [ Negative.] IMMUNOLOGIC: [ Negative.] ENDOCRINE: [Negative. ] DERMATOLOGIC: [Negative.] Past Medical History Past Medical History: Coronary Artery Disease (CAD), COPD, Dementia, GERD/Reflux, Hyperlipidemia, Hypertension Additional Past Medical History / Comment(s): dysphagia, states some memory loss History of Any Multi-Drug Resistant Organisms: None Reported Past Surgical History: Cholecystectomy, Heart Catheterization With Stent Additional Past Surgical History / Comment(s): corbin cataracts, EGD Past Anesthesia/Blood Transfusion Reactions: No Reported Reaction Date of Last Stent Placement:: unknown Past Psychological History: No Psychological Hx Reported Additional Psychological History / Comment(s): memory loss Smoking Status: Never smoker Past Alcohol Use History: None Reported Past Drug Use History: None Reported - Past Family History Mother Family Medical History: Cancer Father Family Medical History: Cancer Medications and Allergies Home Medications Medication Instructions Recorded Confirmed Type Metoprolol Tartrate 25 mg PO BID 05/27/17 03/15/23 History Montelukast [Singulair] 10 mg PO DAILY 05/27/17 03/15/23 History Theophylline 12 Hour [Silvio-Dur] 300 mg PO BID 05/27/17 03/15/23 History Atorvastatin [Lipitor] 80 mg PO HS 11/22/19 03/15/23 History Famotidine [Pepcid] 20 mg PO BID 11/22/19 03/15/23 History Levothyroxine Sodium [Synthroid] 50 mcg PO DAILY 11/22/19 03/15/23 History Donepezil [Aricept] 10 mg PO HS 03/15/23 03/15/23 History Losartan [Cozaar] 50 mg PO DAILY 03/15/23 03/15/23 History Memantine [Namenda] 10 mg PO BID 03/15/23 03/15/23 History Allergies Allergy/AdvReac Type Severity Reaction Status Date / Time ciprofloxacin [From Cipro] Allergy Rash/Hives Verified 03/15/23 17:27 Physical Exam Osteopathic Statement: *. No significant issues noted on an osteopathic structural exam other than those noted in the History and Physical/Consult. Vitals: Vital Signs Temp Pulse Pulse Resp BP BP BP 03/16/23 13:18 97.4 F L 92 16 118/68 03/16/23 08:25 97 03/16/23 08:15 96 03/16/23 08:00 98.5 F 101 H 17 132/72 03/16/23 06:59 20 03/16/23 01:21 98.1 F 110 H 26 H 126/77 03/15/23 21:49 20 03/15/23 21:25 98.1 F 109 H 20 124/61 03/15/23 19:14 105 H 16 129/66 03/15/23 15:47 98 18 03/15/23 15:27 90 18 Pulse Ox 03/16/23 13:18 95 03/16/23 08:25 03/16/23 08:15 03/16/23 08:00 93 L 03/16/23 06:59 03/16/23 01:21 93 L 03/15/23 21:49 03/15/23 21:25 94 L 03/15/23 19:14 96 03/15/23 15:47 03/15/23 15:27 Intake and Output 03/16/23 03/16/23 03/16/23 06:59 14:59 22:59 Intake Total 240 240 Balance 240 240 Intake: Oral 240 240 Other: Voiding Method Toilet Urinal # Voids 2 No acute distress, a bit confused. Currently on room air. Room air saturation 95%. HEENT examination is grossly unremarkable. Mucous membranes are moist. No oral lesions. Neck supple. Full range of motion. No adenopathy thyromegaly or neck vein distention. Cardiovascular examination reveals regular rhythm rate. S1-S2 normal. No S3 or S4. No discernible murmur noted. Heart sounds distant. Heart rate 97 bpm. Lungs reveal bilateral expiratory wheezes and rhonchi. No crackles. Breath sounds are equal bilaterally. Room air saturation is 95%. Abdomen soft bowel sounds are heard. No masses or tenderness. Extremities are intact. No cyanosis clubbing or edema. Skin is without rash or lesion. Neurologic examination is brief but nonfocal. Results - Laboratory Findings CBC and BMP: 03/16/23 06:39 03/16/23 06:39 PT/INR, D-dimer PT 10.7 sec (10.0-12.5) 03/15/23 14:35 INR 1.0 (<1.2) 03/15/23 14:35 Abnormal lab findings: Abnormal Labs 03/15/23 03/15/23 03/15/23 14:35 14:35 14:35 RBC 4.05 L Hgb 11.9 L Hct 34.6 L RDW MPV Lymphocytes # Monocytes # Eosinophils # 1.2 H APTT 21.5 L Carbon Dioxide 19 L Anion Gap Creatinine 1.90 H Est GFR (CKD-EPI) Glucose Plasma Lactic Acid Lawson Urine Protein Urine Ketones 03/15/23 03/15/23 03/15/23 14:35 18:41 21:24 RBC Hgb Hct RDW MPV Lymphocytes # Monocytes # Eosinophils # APTT Carbon Dioxide Anion Gap Creatinine Est GFR (CKD-EPI) Glucose Plasma Lactic Acid Lawson 2.8 H* 2.1 H* 4.1 H* Urine Protein Urine Ketones 03/16/23 03/16/23 03/16/23 00:10 06:39 06:39 RBC 4.13 L Hgb 11.5 L Hct 35.1 L RDW 14.6 H MPV 9.4 L Lymphocytes # 0.77 L Monocytes # 0.13 L Eosinophils # 0 L APTT Carbon Dioxide 17.4 L Anion Gap 14.60 H Creatinine 1.9 H Est GFR (CKD-EPI) 34 L Glucose 136 H Plasma Lactic Acid Lawson 3.0 H* Urine Protein Urine Ketones 03/16/23 10:25 RBC Hgb Hct RDW MPV Lymphocytes # Monocytes # Eosinophils # APTT Carbon Dioxide Anion Gap Creatinine Est GFR (CKD-EPI) Glucose Plasma Lactic Acid Lawson Urine Protein Trace H Urine Ketones 1+ H - Diagnostic Findings Chest x-ray: image reviewed Assessment and Plan Assessment: Acute exacerbation of COPD. History of hypertension. History of hyperlipidemia. History of CAD with previous stent placement. History of hypothyroidism. History of dementia. Gastroesophageal reflux disease. Plan: Plan dated 03/16/2023. The patient was placed on Augmentin. The patient will have a pro-calcitonin level ordered. In addition, the patient was given updrafts with DuoNeb, and is also on Solu-Medrol 60 mg every 6 hours. The patient is receiving saline at 50 mL an hour. Computed tomography scan of the brain was negative. We will add Symbicort to the patient's regimen. No additional recommendations are made. We will await EEG results. If the pro-calcitonin level is normal, we will DC the antibiotics. Time with Patient: Greater than 30
--- NOTE | 2023-03-16 17:13 | P.CNNES ---
History of Present Illness Consult date: 03/16/23 Requesting physician: Kevin Griffin Reason for Consult: confusion and dementia History of Present Illness: This is an 83-year-old with history of dementia, hypertension, coronary artery disease status post stent presented emergency department because of difficulty breathing. Neurology is consulted for confusion with dementia. History was obtained from medical record and nurse. According the patient nurse it seems th at the patient has document history of dementia and he resides by himself and she spoke with his daughter was stated the patient has been confused for the past couple months but drives to himself from place to place. Patient is unable to provide history for me. Per the primary team's note patient has history of anxiety and ptosis of the eye of the left more than the right. Patient is on home medication of Namenda and Aricept. Patient could not provide as stated earlier any history and could not tell me if he has any weakness any numbness. Was felt patient had COPD exacerbation was started on the IV steroids 60 mg every 6 hours by the ED team. Some of the workup during his hospital visit consisted of: Patient is afebrile during this hospital visit. White blood cell is within normal limits His creatinine is 1.90, carbon dioxide is 19, initial plasma lactic acid the vein is 2.8-->4.1 then resolved. Sodium is 139, calcium is 9.5, magnesium is 1.8. ACL to is within normal limits CT of the head is reported as no acute intracranial process. Nonspecific white matter changes, likely secondary to chronic small vessel ischemic disease. I personally reviewed the CT head and the patient has generalized atrophy. Otherwise there is no acute or subacute ischemia there is no bleed. Review of Systems Review of system is limited but positive and negative as per HPI. Past Medical History Past Medical History: Coronary Artery Disease (CAD), COPD, Dementia, GERD/Reflux, Hyperlipidemia, Hypertension Additional Past Medical History / Comment(s): dysphagia, states some memory loss History of Any Multi-Drug Resistant Organisms: None Reported Past Surgical History: Cholecystectomy, Heart Catheterization With Stent Additional Past Surgical History / Comment(s): corbin cataracts, EGD Past Anesthesia/Blood Transfusion Reactions: No Reported Reaction Date of Last Stent Placement:: unknown Past Psychological History: No Psychological Hx Reported Additional Psychological History / Comment(s): memory loss Smoking Status: Never smoker Past Alcohol Use History: None Reported Past Drug Use History: None Reported - Past Family History Mother Family Medical History: Cancer Father Family Medical History: Cancer Medications and Allergies Home Medications Medication Instructions Recorded Confirmed Type Metoprolol Tartrate 25 mg PO BID 05/27/17 03/15/23 History Montelukast [Singulair] 10 mg PO DAILY 05/27/17 03/15/23 History Theophylline 12 Hour [Silvio-Dur] 300 mg PO BID 05/27/17 03/15/23 History Atorvastatin [Lipitor] 80 mg PO HS 11/22/19 03/15/23 History Famotidine [Pepcid] 20 mg PO BID 11/22/19 03/15/23 History Levothyroxine Sodium [Synthroid] 50 mcg PO DAILY 11/22/19 03/15/23 History Donepezil [Aricept] 10 mg PO HS 03/15/23 03/15/23 History Losartan [Cozaar] 50 mg PO DAILY 03/15/23 03/15/23 History Memantine [Namenda] 10 mg PO BID 03/15/23 03/15/23 History Allergies Allergy/AdvReac Type Severity Reaction Status Date / Time ciprofloxacin [From Cipro] Allergy Rash/Hives Verified 03/15/23 17:27 Physical Examination - Vital Signs Vital Signs: Vital Signs Temp Pulse Pulse Resp BP BP BP 03/16/23 15:45 94 03/16/23 15:37 92 03/16/23 13:18 97.4 F L 92 16 118/68 03/16/23 08:25 97 03/16/23 08:15 96 03/16/23 08:00 98.5 F 101 H 17 132/72 03/16/23 06:59 20 03/16/23 01:21 98.1 F 110 H 26 H 126/77 03/15/23 21:49 20 03/15/23 21:25 98.1 F 109 H 20 124/61 03/15/23 19:14 105 H 16 129/66 Pulse Ox 03/16/23 15:45 03/16/23 15:37 03/16/23 13:18 95 03/16/23 08:25 03/16/23 08:15 03/16/23 08:00 93 L 03/16/23 06:59 11/08/23 01:21 93 L 03/15/23 21:49 03/15/23 21:25 94 L 03/15/23 19:14 96 Intake and Output 03/16/23 03/16/23 03/16/23 06:59 14:59 22:59 Intake Total 240 240 Balance 240 240 Intake: Oral 240 240 Other: Voiding Method Toilet Urinal # Voids 2 General: Sitting on the side of the chair and does not appear in acute distress. Neuro: Limited because of his confusion. The patient is awake alert oriented to self. He could not tell me the year or the month. And he was mumbling words upon asking him the year and the month was talking as if there is a third person in the room even though was only me and him. He stated that he was in the hospital. He was able to name pen and watch correctly. She seems to have some word finding difficulties at. The pupils are round equal reactive to light. He kept on closing the left eye intermittently. I felt may be subtle primary gaze of the left eye was deviated laterally. Extraocular movement is intact no nystagmus that was able to appreciate that. Patient has left lower facial weakness but again I had a hard time because the patient kept on the opening closing his eyes and some improvements of the facial weakness was mild. No dysarthria. Motor: Hard to assess individual muscle strength because of his cooperation by felt she was moving the uppers and lowers above gravity symmetrically. I did not appreciate any focality. Normal tone. Sensory is unable to assess because his cooperation Reflexes is unable to assess because his cooperation Results - Laboratory Findings CBC and BMP: 03/16/23 06:39 03/16/23 06:39 Abnormal Lab Findings: Abnormal Labs 03/15/23 03/15/23 03/15/23 14:35 14:35 14:35 RBC 4.05 L Hgb 11.9 L Hct 34.6 L RDW MPV Lymphocytes # Monocytes # Eosinophils # 1.2 H APTT 21.5 L Carbon Dioxide 19 L Anion Gap Creatinine 1.90 H Est GFR (CKD-EPI) Glucose Plasma Lactic Acid Lawson Urine Protein Urine Ketones 03/15/23 03/15/23 03/15/23 14:35 18:41 21:24 RBC Hgb Hct RDW MPV Lymphocytes # Monocytes # Eosinophils # APTT Carbon Dioxide Anion Gap Creatinine Est GFR (CKD-EPI) Glucose Plasma Lactic Acid Lawson 2.8 H* 2.1 H* 4.1 H* Urine Protein Urine Ketones 03/16/23 03/16/23 03/16/23 00:10 06:39 06:39 RBC 4.13 L Hgb 11.5 L Hct 35.1 L RDW 14.6 H MPV 9.4 L Lymphocytes # 0.77 L Monocytes # 0.13 L Eosinophils # 0 L APTT Carbon Dioxide 17.4 L Anion Gap 14.60 H Creatinine 1.9 H Est GFR (CKD-EPI) 34 L Glucose 136 H Plasma Lactic Acid Lawson 3.0 H* Urine Protein Urine Ketones 03/16/23 10:25 RBC Hgb Hct RDW MPV Lymphocytes # Monocytes # Eosinophils # APTT Carbon Dioxide Anion Gap Creatinine Est GFR (CKD-EPI) Glucose Plasma Lactic Acid Lawson Urine Protein Trace H Urine Ketones 1+ H Assessment and Plan Assessment: This is an 83-year-old gentleman with history of dementia who presented because shortness of breath and neurology is consulted for altered mental status with dementia. Altered mental status: Unsure if he has worsening of confusion/encephalopathy due to steroid use Ontop of his underlying dementia Shortness of breath History of dementia Chronic kidney insufficiency Hypertension Plan: I ordered a routine EEG I ordered ammonia level, TSH, vitamin B-12, folate. Ordered carotid duplex Unable to obtain MRI because patient is restless so we'll consider repeat CT had possibly tomorrow. If possible to avoid the steroids because of a can cause confusion/psychosis. He is on Aricept and Namenda is no medication. I start the patient on Seroquel 25 mA daily at bedtime for his agitation. Can go up to 25 mg twice a day. Pulmonary team is on board We'll defer the rest of the medical management to primary team The plan was discussed with the patient's nurse. Thank you for the consultation Time with Patient: Greater than 30
[2023-03-16] MEDS: SYMBICORT 160-4.5 MCG INHALER INHALATION SCH (20:10)
[2023-03-16] MEDS: ATORVASTATIN 80 MG TAB PO SCH (20:35)
[2023-03-16] MEDS: DONEPEZIL 10 MG TAB PO SCH (20:35)
[2023-03-16] MEDS: QUEtiapine 25 MG TAB PO SCH (20:35)
--- NOTE | 2023-03-16 20:36 | US ---
EXAMINATION TYPE: US carotid duplex BILAT DATE OF EXAM: 03/16/2023 COMPARISON: NONE CLINICAL INDICATION: Male, 83 years old with history of stroke; stroke. Pt was confused, poor histori an TECHNIQUE: Carotid duplex ultrasound examination. Indirect Doppler criteria was utilized. FINDINGS: EXAM MEASUREMENTS: RIGHT: Peak Systolic Velocity (PSV) cm/sec ----- Right CCA: 86.9 ----- Right ICA: 119 ----- Right ECA: 120 ICA/CCA ratio: 1.4 RIGHT: End Diastole cm/sec ----- Right CCA: 19.5 ----- Right ICA: 34.2 ----- Right ECA: 15.4 LEFT: Peak Systolic Velocity (PSV) cm/sec ----- Left CCA: 79.7 ----- Left ICA: 81.7 ----- Left ECA: 122 ICA/CCA ratio: 1.0 LEFT: End Diastole cm/sec ----- Left CCA: 17.4 ----- Left ICA: 16.7 ----- Left ECA: 13.4 VERTEBRALS (direction of flow): Right Vertebral: Not seen Left Vertebral: Antegrade Rhythm: Normal POLICEWOMAN NOTES: No plaque seen. No elevated velocities IMPRESSION: 1. No hemodynamically significant internal carotid artery stenosis on either side. 2. Unable to adequately visualize the right vertebral artery for assessment. Criteria for Assigning % of Stenosis / Diameter reduction (Estimation based on the indirect measurements of the internal carotid artery velocities (ICA PSV). 1. Normal (no stenosis)=ICA PSV < 125 cm/s: ratio < 2.0: ICA EDV<40 cm/s. 2. Less than 50% stenosis=ICA PSV < 125 cm/s: ratio < 2.0: ICA EDV<40 cm/s. 3. 50 to 69% stenosis=ICA PSV of 125 to 230 cm/s: ration 2.0 ? 4.0: ICA EDV 40-100 cm/s. 4. Greater than 70% stenosis to near occlusion= ICA PSV > 230 cm/s: ratio > 4.0: ICA EDV > 100 cm/s. 5. Near occlusion= ICA PSV velocities may be low or undetectable: variable ratio and ICA EDV. 6. Total occlusion=unable to detect flow.
[2023-03-17] MEDS: SODIUM CHLORIDE 0.9% 1,000 ML IV SCH ×2 (02:15→22:45)
[2023-03-17] MEDS: LEVOTHYROXINE 50 MCG TAB PO SCH (05:31)
[2023-03-17] MEDS: methylPREDNISolone SOD SUCCI 125 MG/2 ML VIAL IV SCH ×2 (05:31→12:43)
[2023-03-17] MEDS: IPRATROPIUM-ALBUTEROL 3 ML NEB INHALATION SCH ×4 (07:35→20:20)
[2023-03-17] MEDS: SYMBICORT 160-4.5 MCG INHALER INHALATION SCH ×2 (07:35→20:19)
--- NOTE | 2023-03-17 08:12 | EEG ---
ELECTROENCEPHALOGRAM REPORT CLINICAL HISTORY: This is an 83-year-old man with altered mental status. The video EEG is obtained to evaluate for seizure epileptiform activity. RELEVANT MEDICATION: The patient is not on any antiepileptic drugs. EEG TYPE: This is a routine 21 channel EEG with video using the 10/20 electrode placement system. DESCRIPTION: Wakefulness is only obtained. During awake state, the background consists of low-to- moderate voltage of 5 to 5-1/2 hertz activity. There is no physiological stage 2 sleep architecture. There is no focal slowing. Interictal and ictal is none. ACTIVATION PROCEDURE: Photic stimulation did not evoke a posterior driving response. There is no abnormality during the photic stimulation. Hyperventilation is not performed. CLINICAL INTERPRETATION: This is abnormal routine EEG. The background slowing is suggestive of moderate encephalopathy. Otherwise, there is no focal slowing, epileptiform discharge, or seizure on the EEG. Clinical correlation is recommended. DC / LEEANNE: [id number] / KELSIE
[2023-03-17] MEDS: METOPROLOL TARTRATE 25 MG TAB PO SCH ×2 (09:19→21:09)
[2023-03-17] MEDS: MEMANTINE 10 MG TAB PO SCH ×2 (09:19→21:09)
[2023-03-17] MEDS: FAMOTIDINE 20 MG TAB PO SCH (09:19)
[2023-03-17] MEDS: LOSARTAN 50 MG TAB PO SCH (09:19)
[2023-03-17] MEDS: MONTELUKAST 10 MG TAB PO SCH (09:19)
--- NOTE | 2023-03-17 11:58 | P.PN ---
Subjective Progress Note Date: 03/17/23 83-year-old male who presented to the emergency department, at about 2:00 in the afternoon, on March 15. He apparently complained of being short of breath. He states he has been having shortness of breath, which is been progressively worse, over the last couple weeks. He also complained of fever and chills. The patient apparently has a history of coronary disease, COPD, dementia, gastroesophageal reflux disease, hypertension, and hyperlipidemia. He's had a previous heart catheterization with stent. The patient has been consulted, and, with skeletal have a CAT scan of the brain, an EEG. Currently, the patient's on room air. Is not receiving any IV fluids. Laboratory data includes a white count of 7.7, hemoglobin 11.5, hematocrit 35.1, and a normal platelet count. Sodium 138, potassium 5.1, chlorides 106, CO2 17, anion gap 15, BUN 24, and creatinine 1.9. Glucose 136. Urine was negative. Lactic acid initially 4.1, then 3, and then 1.4. Troponin was negative. Liver enzymes are normal. Testing for influenza, RSV, and coronavirus are all negative. Chest x-ray was positive for COPD. Brain CT showed nothing acute. The patient is seen today 03/17/2023 in follow-up on the regular medical floor. He is currently awake and alert. Poor historian. He is maintaining O2 saturati ons in the 90s on room air. No IV fluids. Doppler of the carotids revealed no significant stenosis. Computed tomography scan of the head revealed no acute intracranial process. EEG revealed background slowing suggestive of moderate encephalopathy. No focal slowing, epileptiform discharge or seizure activity noted. Blood cultures reveal no growth. He is continued on DuoNeb inhalations, Symbicort, Solu-Medrol and Singulair. Antibiotics in the form of Augmentin. Pro-calcitonin was 0.09. Objective - Vital Signs Vital signs: Vital Signs Temp 97.7 F 03/17/23 08:55 Pulse 92 03/17/23 11:32 Resp 17 03/17/23 07:30 BP 135/84 03/17/23 07:30 Pulse Ox 98 03/17/23 07:30 FiO2 Intake & Output 03/16/23 03/17/23 03/17/23 18:59 06:59 18:59 Intake Total 480 Balance 480 Intake: Oral 480 Other: Voiding Method Toilet Toilet Urinal Urinal # Voids 2 3 - Exam GENERAL EXAM: Alert, 83-year-old male patient, on room air, poor historian, comfortable in no apparent distress. HEAD: Normocephalic. EYES: Normal reaction of pupils, equal size. NOSE: Clear with pink turbinates. THROAT: No erythema or exudates. NECK: No masses, no JVD. CHEST: No chest wall deformity. LUNGS: Equal air entry with end expiratory wheeze, diminished. CVS: S1 and S2 normal with no audible murmur, regular rhythm. ABDOMEN: No hepatosplenomegaly, normal bowel sounds, no guarding or rigidity. SPINE: No scoliosis or deformity SKIN: No rashes CENTRAL NERVOUS SYSTEM: No focal deficits, tone is normal in all 4 extremities. EXTREMITIES: There is no peripheral edema. No clubbing, no cyanosis. Peripheral pulses are intact. - Labs CBC & Chem 7: 03/16/23 06:39 03/16/23 06:39 Labs: Abnormal Lab Results - Last 24 Hours (Table) 03/16/23 03/16/23 Range/Units 06:39 19:00 Carbon Dioxide 17.4 L (21.6-31.8) mmol/L Anion Gap 14.60 H (4.00-12.00) mmol/L Creatinine 1.9 H (0.6-1.5) mg/dL Est GFR (CKD-EPI) 34 L (>=60) Glucose 136 H (70-110) mg/dL Vitamin B12 1976.0 H (200.0-944.0) pg/mL Microbiology - Last 24 Hours (Table) 03/15/23 15:15 Blood Culture - Preliminary Blood 03/15/23 15:00 Blood Culture - Preliminary Blood Assessment and Plan Assessment: Acute exacerbation of COPD History of hypertension History of hyperlipidemia History of CAD with previous stent placement History of hypothyroidism History of dementia Gastroesophageal reflux disease Plan: The patient was seen and evaluated Computed tomography scan of the brain, carotid Dopplers, EEG, medications and labs reviewed Procalcitonin negative at 0.09 Augmentin discontinued Continue bronchodilators, steroids terrazzo worker is at the bedside We will continue to follow This patient was seen independently by the nurse practitioner I have personally seen and examined the patient, performed the documentation and the assessment and plan as written. Number of minutes spent on the visit: 24.
--- NOTE | 2023-03-17 11:59 | CDI ---
Documentation Clarification Form Date: 03/17/2023 11:46:57 AM From: Sarah Ann RN CCDS Phone: [phone] Admit Date: 03/15/2023 05:58:00 PM Patient Name: Praveen Parker Visit Number: [id number] Discharge Date: ATTENTION: The Clinical Documentation Specialists (CDI) and [facility] Coding Staff appreciate your assistance in clarifying documentation. Please respond to the clarification below the line at the bottom and electronically sign. The CDI & [facility] Coding staff will review the response and follow-up if needed. Please note: Queries are made part of the Legal Health Record. If you have any questions, please contact the author of this message via ITS. Dr. Rudy Bautista Encephalopathy is documented 03/16, Neurology consult. Additional clarification regarding the type of encephalopathy is requested. History/Risk Factors: 83 year old male presented with difficulty breathing. Medical History: Dementia, HTN, CAD and COPD. 03/16, Neurology consult. Clinical Indicators: Labs, 03/15: Wbc 10.0; Lactic acid 2.8; Cr 1.90 EEG, 03/16: Abnormal routine EEG. The background slowing is suggestive of moderate encephalopathy. Otherwise there is no focal slowing, epileptiform discharge or seizure on the EEG. CT Brain, 03/16:Nonspecific white matter changes, likely secondary to chronic small vessel ischemic disease. Neurology consult, 03/16: Altered mental status: Unsure if he has worsening of confusion/encephalopathy due to steroid use Ontop of his underlying dementia. Treatment: Neuro checks, Seroquel. If possible to avoid steroids. Please clarify the type of encephalopathy, if known: [ ] Metabolic Encephalopathy [ ] Toxic Encephalopathy [ ] Other, please specify [ ] Unable to determine (Template Last Revised: July 2020) UNABLE TO DETERMINE MTDD
--- NOTE | 2023-03-17 13:12 | P.PN ---
Subjective Progress Note Date: 03/17/23 Principal diagnosis: Diagnosis #1 acute COPD exacerbation #2 progressive dementia #3 history of left facial abnormalities with drooping of the left upper eyelid #4 encephalopathy #5 abnormal EEG but no evidence of seizure disorder. #6 mild agitation resolved #7 hypothyroidism. #8 coronary artery disease atherosclerotic heart disease. Progress note Date of service 03/17/[address] Ruelas Patient seen and evaluated [id number] and he is currently with the Center be cause of his confusion progression also seen by neurology and started on Seroquel. With the progression of his dementia Reviewed computed tomography scan negative so far, MRI could not be ordered as stated by neurology because of his agitation and he 1 stay still. Patient's conscious alert however he could not recall where he has and who is the president and with the time of the year Also he is wobbly on his feet. Speech pathology in process was notified by him and swallow scheduled. Dr. Rudy Bautista neurologist suggested could be the steroid for the encephalopathy and we are gradually decreasing the steroid however patient confused prior of the use of the steroid. On the examination Temperature 90.8 F oral Pulse rate 88 bpm Blood pressure 134/84 with a mean 101. Oxygen saturation on room air 98%. Patient seen by Dr. Bautista pulmonary and critical care as well. On the exam Conscious alert oriented able to eat he had left facial drooping and loss of the nasolabial fold Neck was supple no JVD carotid duplex study was negative Chest significant improvement on the wheezes and rhonchi's. Heart regular sinus rhythm Abdomen soft positive bowel sounds Extremities no edema. History of prostatic cancer radiated. And history of cardiac cath in the past and the stent. No chest pain. Assessment: #1 progressive dementia #2 encephalopathy with agitation #30 acute exacerbation of the COPD. #4 hypothyroidism 5 coronary artery disease atherosclerotic heart disease with a history of stenting of the coronary artery. Plan: #1 rehabilitation #2 I didn't discussed with him the extended facility with the progressive dementia. #3 one of his daughter did call the office and menorrhagia talk to her regarding of the progression. So far no visitation from his 2 daughters. #4 plan for modified barium swallow with the speech pathology. #5 plan for future extended facility with his progressive dementia. Objective - Vital Signs Vital signs: Vital Signs Temp 97.7 F 03/17/23 08:55 Pulse 92 03/17/23 11:32 Resp 17 03/17/23 07:30 BP 135/84 03/17/23 07:30 Pulse Ox 98 03/17/23 07:30 FiO2 Intake & Output 03/16/23 03/17/23 03/17/23 18:59 06:59 18:59 Intake Total 480 Balance 480 Intake: Oral 480 Other: Voiding Method Toilet Toilet Urinal Urinal # Voids 2 3 - Labs CBC & Chem 7: 03/16/23 06:39 03/16/23 06:39 Labs: Abnormal Lab Results - Last 24 Hours (Table) 03/16/23 03/16/23 Range/Units 06:39 19:00 Carbon Dioxide 17.4 L (21.6-31.8) mmol/L Anion Gap 14.60 H (4.00-12.00) mmol/L Creatinine 1.9 H (0.6-1.5) mg/dL Est GFR (CKD-EPI) 34 L (>=60) Glucose 136 H (70-110) mg/dL Vitamin B12 1976.0 H (200.0-944.0) pg/mL Microbiology - Last 24 Hours (Table) 03/15/23 15:15 Blood Culture - Preliminary Blood 03/15/23 15:00 Blood Culture - Preliminary Blood
--- NOTE | 2023-03-17 13:51 | P.PN ---
Subjective Progress Note Date: 03/17/23 I am following with patient and has sitter and sleeping. Objective - Vital Signs Vital signs: Vital Signs Temp 97.8 F 03/17/23 12:15 Pulse 80 03/17/23 12:15 Resp 18 03/17/23 12:15 BP 132/78 03/17/23 12:15 Pulse Ox 94 L 03/17/23 12:15 FiO2 Intake & Output 03/16/23 03/17/23 03/17/23 18:59 06:59 18:59 Intake Total 480 Balance 480 Intake: Oral 480 Other: Voiding Method Toilet Toilet Urinal Urinal # Voids 2 3 - Exam General: Lying in bed and does not appear in acute distress. Neuro: Sleeping. Some of the workup during his hospital visit consisted of: Patient is afebrile during this hospital visit. White blood cell is within normal limits His creatinine is 1.90, carbon dioxide is 19, initial plasma lactic acid the vein is 2.8-->4.1 then resolved. Sodium is 139, calcium is 9.5, magnesium is 1.8. ACL to is within normal limits CT of the head is reported as no acute intracranial process. Nonspecific white matter changes, likely secondary to chronic small vessel ischemic disease. I personally reviewed the CT head and the patient has generalized atrophy. Otherwise there is no acute or subacute ischemia there is no bleed. Vitamin B12: 1975 Folate: 18.4 TSH: 1.06 Ammonia <9 Routine EEG: Is abnormal. The background slowing is suggestive of moderate encephalopathy. Otherwise, there is no focal slowing, epileptiform discharge or seizure on the EEG. Carotid duplex: No hemodynamically significant internal carotid artery stenosis on either side. Unable to adequately visualize the right vertebral artery for assessment. - Labs CBC & Chem 7: 03/16/23 06:39 03/16/23 06:39 Labs: Abnormal Lab Results - Last 24 Hours (Table) 03/16/23 03/16/23 Range/Units 06:39 19:00 Carbon Dioxide 17.4 L (21.6-31.8) mmol/L Anion Gap 14.60 H (4.00-12.00) mmol/L Creatinine 1.9 H (0.6-1.5) mg/dL Est GFR (CKD-EPI) 34 L (>=60) Glucose 136 H (70-110) mg/dL Vitamin B12 1975.0 H (200.0-944.0) pg/mL Microbiology - Last 24 Hours (Table) 03/15/23 15:15 Blood Culture - Preliminary Blood 03/15/23 15:00 Blood Culture - Preliminary Blood Assessment and Plan Assessment: This is an 83-year-old gentleman with history of dementia who presented because shortness of breath and neurology is consulted for altered mental status with dementia. Altered mental status: Unsure if he has worsening of confusion/encephalopathy due to steroid use On top of his underlying dementia Shortness of breath History of dementia Chronic kidney insufficiency Hypertension Plan: Unable to obtain MRI because patient is restless so we'll consider repeat CT had today. If possible to avoid the steroids because of a can cause confusion/psychosis. He is on Aricept and Namenda is no medication. I start the patient on Seroquel 25mg daily at bedtime for his agitation. Can go up to 25 mg twice a day. Pulmonary team is on board We'll defer the rest of the medical management to primary team The plan was discussed with the patient's nurse. Time with Patient: Less than 30
--- NOTE | 2023-03-17 14:49 | CT ---
EXAMINATION TYPE: CT brain wo con DATE OF EXAM: 03/17/2023 COMPARISON: 03/16/2023 INDICATION: AMS DLP: 1110.0 mGycm, Automated exposure control for dose reduction was used. CONTRAST: None CT of the brain is performed utilizing 3 mm thick sections through the posterior fossa and 3 mm thick sections through the remaining calvarium. Study is performed within 24 hours of arrival to the hosp ital. No abnormal hyperdensity is present to suggest an acute intracranial hemorrhage. No mass lesion is evident. No acute infarcts are evident. Mild periventricular white matter hypodensity is present, likely on th e basis of chronic white matter ischemic changes. Ventricles and sulci are prominent for the patient age. There is mild mucosal thickening within the maxillary sinuses. Mucosal thickening is within the anter ior left sphenoid sinus. Left septal deviation and left septal spurring is present. Mastoid air cells are clear. IMPRESSION: 1. Mild periventricular white matter ischemic-type changes. 2. No acute intracranial process evident. Follow-up MRI can be performed as clinically indicated
--- NOTE | 2023-03-17 15:21 | FL ---
EXAMINATION TYPE: FL barium swallow w video DATE OF EXAM: 03/17/2023 COMPARISON: NONE HISTORY: Rule out aspiration TECHNIQUE: Fluoroscopy. FINDINGS: Fluoroscopic guidance was provided for the procedure performed in conjunction with the [facility][note 3] pathology department. Please see complete report forthcoming from the Speech Pathology departmen t. Various consistencies from thin liquid to solids were administered. Fluoroscopy time 1.25 minutes Number of images: 0. No aspiration or penetration was evident. No significant pooling was observed in the vallecula. There was normal propulsion of the bolus. IMPRESSION: 1. No aspiration evident.
[2023-03-17] MEDS: methylPREDNISolone SOD SUCCI 40 MG/ML 1 ML VIAL IV SCH (15:25)
[2023-03-17] MEDS: DONEPEZIL 10 MG TAB PO SCH (21:09)
[2023-03-17] MEDS: ATORVASTATIN 80 MG TAB PO SCH (21:09)
[2023-03-17] MEDS: QUEtiapine 25 MG TAB PO SCH (21:19)
[2023-03-18] MEDS: methylPREDNISolone SOD SUCCI 40 MG/ML 1 ML VIAL IV SCH ×2 (01:25→08:39)
[2023-03-18] MEDS: LEVOTHYROXINE 50 MCG TAB PO SCH (05:32)
[2023-03-18 06:41] LABS: NT-Pro-B-Type Natriuretic Pept 3300 pg/mL
[2023-03-18] MEDS: SYMBICORT 160-4.5 MCG INHALER INHALATION SCH ×3 (07:43→19:42)
[2023-03-18] MEDS: IPRATROPIUM-ALBUTEROL 3 ML NEB INHALATION SCH ×5 (07:43→19:44)
[2023-03-18] MEDS: MEMANTINE 10 MG TAB PO SCH ×2 (08:38→20:06)
[2023-03-18] MEDS: MONTELUKAST 10 MG TAB PO SCH (08:38)
[2023-03-18] MEDS: FAMOTIDINE 20 MG TAB PO SCH (08:38)
[2023-03-18] MEDS: THEOPHYLLINE 24 HOUR 300 MG CAP.ER.24H PO SCH (08:38)
[2023-03-18] MEDS: LOSARTAN 50 MG TAB PO SCH (08:39)
[2023-03-18] MEDS: METOPROLOL TARTRATE 25 MG TAB PO SCH ×2 (08:39→20:06)
[2023-03-18 09:33] LABS: Basophils # (A) 0.01 X 10*3/uL (0.00-0.10); Basophils % (A) 0.1 %; Eosinophils # (A) 0 X 10*3/uL (0.04-0.35); Eosinophils % (A) 0 %; HGB 9.6 g/dL (13.0-17.0); Lymphocytes % (A) 3.7 %; MCH 28.1 pg (27.0-32.0); MCHC 33.1 g/dL (32.0-37.0); MCV 84.8 FL (80.0-97.0); Mean Platelet Volume 9.3 FL (9.5-12.2); Monocytes # (A) 0.77 X 10*3/uL (0.20-1.00); NRBC Per 100 WBC 0 X 10*3/uL (0.00-0.01); Neutrophils # (A) 17.42 X 10*3/uL (1.80-7.70); Neutrophils % (A) 91.6 %; Platelet Count 341 X 10*3/uL (140-440); RBC 3.42 X 10*6/uL (4.40-5.60); RDW 15.1 % (11.5-14.5); WBC 19.02 X 10*3/uL (4.50-10.00)
--- NOTE | 2023-03-18 11:10 | P.PN ---
Subjective Progress Note Date: 03/18/23 83-year-old male who presented to the emergency department, at about 2:00 in the afternoon, on March 15. He apparently complained of being short of breath. He states he has been having shortness of breath, which is been progressively worse, over the last couple weeks. He also complained of fever and chills. The patient apparently has a history of coronary disease, COPD, dementia, gastroesophageal reflux disease, hypertension, and hyperlipidemia. He's had a previous heart catheterization with stent. The patient has been consulted, and, with skeletal have a CAT scan of the brain, an EEG. Currently, the patient's on room air. Is not receiving any IV fluids. Laboratory data includes a white count of 7.7, hemoglobin 11.5, hematocrit 35.1, and a normal platelet count. Sodium 138, potassium 5.1, chlorides 106, CO2 17, anion gap 15, BUN 24, and creatinine 1.9. Glucose 136. Urine was negative. Lactic acid initially 4.1, then 3, and then 1.4. Troponin was negative. Liver enzymes are normal. Testing for influenza, RSV, and coronavirus are all negative. Chest x-ray was positive for COPD. Brain CT showed nothing acute. The patient is seen today 03/17/2023 in follow-up on the regular medical floor. He is currently awake and alert. Poor historian. He is maintaining O2 saturati ons in the 90s on room air. No IV fluids. Doppler of the carotids revealed no significant stenosis. Computed tomography scan of the head revealed no acute intracranial process. EEG revealed background slowing suggestive of moderate encephalopathy. No focal slowing, epileptiform discharge or seizure activity noted. Blood cultures reveal no growth. He is continued on DuoNeb inhalations, Symbicort, Solu-Medrol and Singulair. Antibiotics in the form of Augmentin. Pro-calcitonin was 0.09. The patient is seen today 03/18/2023 in follow-up on the regular medical floor. He is awake and alert in no acute distress. Resting comfortably in bed. Maintaining O2 saturations in the 90s on room air. No IV fluids. He does still have an end expiratory wheeze. He is continued on DuoNeb inhalations, Symbicort, Solu-Medrol. Blood cultures reveal no growth. Urine culture revealed no growth. White count 19.0. Hemoglobin 9.6. Platelets 341. ProBNP 3300. Computed tomography scan of the brain revealed mild periventricular white matter ischemic type changes. No acute intracranial process. Barium swallow revealed no aspiration evident. Objective - Vital Signs Vital signs: Vital Signs Temp 97.7 F 03/18/23 07:50 Pulse 88 03/18/23 07:58 Resp 16 03/18/23 02:00 BP 125/60 03/18/23 07:50 Pulse Ox 98 03/18/23 07:50 FiO2 Intake & Output 03/17/23 03/18/23 03/18/23 18:59 06:59 18:59 Other: Voiding Method Toilet Urinal # Voids 2 - Exam GENERAL EXAM: Alert, pleasant 83-year-old male patient, on room air, poor historian, resting in bed, no apparent distress. HEAD: Normocephalic. EYES: Normal reaction of pupils, equal size. NOSE: Clear with pink turbinates. THROAT: No erythema or exudates. NECK: No masses, no JVD. CHEST: No chest wall deformity. LUNGS: Equal air entry with end expiratory wheeze, diminished. CVS: S1 and S2 normal with no audible murmur, regular rhythm. ABDOMEN: No hepatosplenomegaly, normal bowel sounds, no guarding or rigidity. SPINE: No scoliosis or deformity SKIN: No rashes CENTRAL NERVOUS SYSTEM: No focal deficits, tone is normal in all 4 extremities. EXTREMITIES: There is no peripheral edema. No clubbing, no cyanosis. Peripheral pulses are intact. - Labs CBC & Chem 7: 03/18/23 05:46 03/16/23 06:39 Labs: Abnormal Lab Results - Last 24 Hours (Table) 03/18/23 Range/Units 05:46 WBC 19.02 H (4.50-10.00) X 10*3/uL RBC 3.42 L (4.40-5.60) X 10*6/uL Hgb 9.6 L (13.0-17.0) g/dL Hct 29.0 L (39.6-50.0) % RDW 15.1 H (11.5-14.5) % MPV 9.3 L (9.5-12.2) FL Neutrophils # 17.42 H (1.80-7.70) X 10*3/uL Lymphocytes # 0.70 L (0.90-5.00) X 10*3/uL Eosinophils # 0 L (0.04-0.35) X 10*3/uL Microbiology - Last 24 Hours (Table) 03/16/23 10:25 Urine Culture - Final Urine,Voided 03/15/23 15:15 Blood Culture - Preliminary Blood 03/15/23 15:00 Blood Culture - Preliminary Blood Assessment and Plan Assessment: Acute exacerbation of COPD History of hypertension History of hyperlipidemia History of CAD with previous stent placement History of hypothyroidism History of dementia Gastroesophageal reflux disease Plan: The patient was seen and evaluated Second computed tomography scan of the brain, barium swallow, medications and labs reviewed Currently stable and on room air Continue bronchodilators Discontinue Solu-Medrol, initiate prednisone taper Plan is for subacute rehab post discharge This patient was seen independently by the nurse practitioner I have personally seen and examined the patient, performed the documentation and the assessment and plan as written. Number of minutes spent on the visit: 22.
[2023-03-18 11:14] LABS: BUN/Creat Ratio 21.33 Ratio (12.00-20.00); Blood Urea Nitrogen 38.4 mg/dL (9.0-27.0); Calcium 8.4 mg/dL (8.7-10.3); Carbon Dioxide 18.7 mmol/L (21.6-31.8); Chloride 110 mmol/L (96-109); Glucose 133 mg/dL (70-110); Magnesium 2.3 mg/dL (1.5-2.4); Potassium 4.3 mmol/L (3.5-5.5); Sodium 141 mmol/L (135-145)
--- NOTE | 2023-03-18 12:27 | P.CRDCN ---
History of Present Illness History of present illness: HISTORY OF PRESENT ILLNESS: This is a 83-year-old male with a past medical history significant for coronary artery disease with previous stenting, hypertension, hyperlipidemia, hypothyroidism, COPD, and dementia. Patient follows in the office with Dr. Worthington but has not been seen in the office since May 2019. We have been asked to see the patient in consultation for elevated BNP. Patient examined this afternoon. He is sitting up in the chair. His family is present. The patient is unsure why he came to the hospital. According to ER documentation, the pat rico presented with shortness of breath. He is being treated for COPD exacerbation. The patient denies any chest pain or pressure. He denies any shortness of breath. Denies any fever or cough. Denies any dizziness or lightheadedness. Patient's vital signs are stable. * EKG reveals sinus tachycardia with no signs of acute ischemia * Chest xray possible underlying COPD. No definite acute process. * Laboratory data: W BC 19.02. Hemoglobin 9.6. Platelet count 341. Sodium 141. Potassium 4.3. BUN 38. Creatinine 1.8. ProBNP 3300. * Current home cardiac medications include atorvastatin 80 mg at night, losartan 50 mg daily, metoprolol 25 mg twice a day. * Most recent echocardiogram obtained in October 2018 revealing ejection fraction 55%, mild aortic regurgitation, mild tricuspid regurgitation, mild mitral regurgitation * Cardiac catheterization history: 2007 with stenting of the LAD REVIEW OF SYSTEMS: At the time of my exam: CONSTITUTIONAL: Denies fever or chills. HEENT: Denies blurred vision, vision changes, or eye pain. Denies hemoptysis CARDIOVASCULAR: Denies chest pain. Denies orthopnea. Denies PND. Denies palpitations RESPIRATORY: Denies shortness of breath. GASTROINTESTINAL: Denies abdominal pain. Denies nausea or vomiting. HEMATOLOGIC: Denies bleeding disorders. GENITOURINARY: Denies any blood in urine. SKIN: Denies pruitis. Denies rash. PHYSICAL EXAM: VITAL SIGNS: Reviewed. GENERAL: Well-developed in no acute distress. HEENT: Head is normocephalic. Pupils are equal, round. Sclerae anicteric. Mucous membranes of the mouth are moist. Neck supple. No JVD or thyromegaly LUNGS: Respirations even and unlabored. Lungs diminished at the bases. No crackles auscultated. HEART: Regular rate and rhythm. S1 and S2 heard. Systolic murmur noted. ABDOMEN: Soft. Nondistended. Nontender. EXTREMITIES: Normal range of motion. No clubbing or cyanosis. Peripheral pulses intact. No lower extremity edema NEUROLOGIC: Awake and alert. Oriented 3 ASSESSMENT: Shortness of breath Acute COPD exacerbation Elevated proBNP without clinical evidence of congestive heart failure Coronary artery disease with previous stenting of the LAD, 2007 Chronic kidney disease Hypertension Hyperlipidemia Hypothyroidism History of dementia PLAN: 2-D echo has been ordered. Await results Continue home cardiac medications Add Aspirin 81 mg daily secondary to history of CAD Clinically, the patient is not in overt congestive heart failure. No diuretics are recommended at this time. Patient is currently stable from a cardiac perspective Further recommendations pending patient's course Nurse practitioner note has been reviewed by physician. Signing provider agrees with the documented findings, assessment, and plan of care. Past Medical History Past Medical History: Coronary Artery Disease (CAD), COPD, Dementia, GE RD/Reflux, Hyperlipidemia, Hypertension Additional Past Medical History / Comment(s): dysphagia, states some memory loss History of Any Multi-Drug Resistant Organisms: None Reported Past Surgical History: Cholecystectomy, Heart Catheterization With Stent Additional Past Surgical History / Comment(s): corbin cataracts, EGD Past Anesthesia/Blood Transfusion Reactions: No Reported Reaction Date of Last Stent Placement:: unknown Past Psychological History: No Psychological Hx Reported Additional Psychological History / Comment(s): memory loss Smoking Status: Never smoker Past Alcohol Use History: None Reported Past Drug Use History: None Reported - Past Family History Mother Family Medical History: Cancer Father Family Medical History: Cancer Medications and Allergies Home Medications Medication Instructions Recorded Confirmed Type Metoprolol Tartrate 25 mg PO BID 05/27/17 03/15/23 History Montelukast [Singulair] 10 mg PO DAILY 05/27/17 03/15/23 History Theophylline 12 Hour [Silvio-Dur] 300 mg PO BID 05/27/17 03/15/23 History Atorvastatin [Lipitor] 80 mg PO HS 11/22/19 03/15/23 History Famotidine [Pepcid] 20 mg PO BID 11/22/19 03/15/23 History Levothyroxine Sodium [Synthroid] 50 mcg PO DAILY 11/22/19 03/15/23 History Donepezil [Aricept] 10 mg PO HS 03/15/23 03/15/23 History Losartan [Cozaar] 50 mg PO DAILY 03/15/23 03/15/23 History Memantine [Namenda] 10 mg PO BID 03/15/23 03/15/23 History Allergies Allergy/AdvReac Type Severity Reaction Status Date / Time ciprofloxacin [From Cipro] Allergy Rash/Hives Verified 03/15/23 17:27 Physical Exam Vitals: Vital Signs Temp Pulse Pulse Resp BP BP BP 03/18/23 11:26 80 03/18/23 11:13 80 03/18/23 07:58 88 03/18/23 07:50 97.7 F 93 125/60 03/18/23 07:43 84 03/18/23 02:00 98.4 F 86 16 121/72 03/17/23 20:36 90 03/17/23 20:20 94 03/17/23 20:00 98.5 F 94 17 105/69 03/17/23 18:36 97.9 F 64 14 115/58 03/17/23 15:13 88 03/17/23 15:01 84 03/17/23 12:15 97.8 F 80 18 132/78 Pulse Ox 03/18/23 11:26 03/18/23 11:13 03/18/23 07:58 03/18/23 07:50 98 03/18/23 07:43 03/18/23 02:00 94 L 03/17/23 20:36 03/17/23 20:20 03/17/23 20:00 97 03/17/23 18:36 96 03/17/23 15:13 03/17/23 15:01 03/17/23 12:15 94 L Intake and Output 03/17/23 03/18/23 03/18/23 22:59 06:59 14:59 Other: Voiding Method Toilet Toilet Urinal Urinal # Voids 2 Results 03/18/23 05:46 03/18/23 05:46 CBC 03/18/23 Range/Units 05:46 WBC 19.02 H (4.50-10.00) X 10*3/uL RBC 3.42 L (4.40-5.60) X 10*6/uL Hgb 9.6 L (13.0-17.0) g/dL Hct 29.0 L (39.6-50.0) % Plt Count 341 (140-440) X 10*3/uL Comprehensive Metabolic Panel 03/18/23 Range/Units 05:46 Sodium 141 (135-145) mmol/L Potassium 4.3 (3.5-5.5) mmol/L Chloride 110 H (96-109) mmol/L Carbon Dioxide 18.7 L (21.6-31.8) mmol/L BUN 38.4 H (9.0-27.0) mg/dL Creatinine 1.8 H (0.6-1.5) mg/dL Glucose 133 H (70-110) mg/dL Calcium 8.4 L (8.7-10.3) mg/dL Current Medications Generic Name Dose Route Start Last Admin Trade Name Freq PRN Reason Stop Dose Admin Albuterol/Ipratropium 3 ml 03/15/23 20:00 03/18/23 11:13 Ipratropium-Albuterol 3 Ml Neb INHALATION 3 ml RT-QID WILMAN Administration Albuterol/Ipratropium 3 ml 03/15/23 17:58 Ipratropium-Albuterol 3 Ml Neb INHALATION RT-Q2H PRN Shortness Of Breath Or Wheezing Atorvastatin Calcium 80 mg 03/16/23 21:00 03/17/23 21:09 Atorvastatin 80 Mg Tab PO 80 mg HS WILMAN Administration Budesonide/Formoterol Fumarate 2 puff 03/16/23 20:00 03/18/23 07:43 Symbicort 160-4.5 Mcg Inhaler INHALATION 2 puff RT-BID WILMAN Administration Donepezil HCl 10 mg 03/16/23 21:00 03/17/23 21:09 Donepezil 10 Mg Tab PO 10 mg HS WILMAN Administration Famotidine 20 mg 03/16/23 10:45 03/18/23 08:38 Famotidine 20 Mg Tab PO 20 mg DAILY WILMAN Administration Sodium Chloride 1,000 mls @ 50 mls/hr 03/15/23 22:45 03/17/23 22:45 Saline 0.9% IV Not Given .Q20H WILMAN Levothyroxine Sodium 50 mcg 03/16/23 09:30 03/18/23 05:32 Levothyroxine 50 Mcg Tab PO 50 mcg DAILY@0630 WILMAN Administration Losartan Potassium 50 mg 03/16/23 09:30 03/18/23 08:39 Losartan 50 Mg Tab PO 50 mg DAILY WILMAN Administration Memantine 10 mg 03/16/23 09:45 03/18/23 08:38 Memantine 10 Mg Tab PO 10 mg BID WILMAN Administration Metoprolol Tartrate 25 mg 03/16/23 09:45 03/18/23 08:39 Metoprolol Tartrate 25 Mg Tab PO 25 mg BID WILMAN Administration Montelukast Sodium 10 mg 03/16/23 09:45 03/18/23 08:38 Montelukast 10 Mg Tab PO 10 mg DAILY WILMAN Administration Naloxone HCl 0.2 mg 03/15/23 17:58 Naloxone 0.4 Mg/Ml 1 Ml Vial IVP Q2M PRN Opioid Reversal Prednisone 40 mg 03/19/23 09:00 Prednisone 20 Mg Tab PO DAILY WILMAN Quetiapine Fumarate 25 mg 03/16/23 21:00 03/17/23 21:19 Quetiapine 25 Mg Tab PO 25 mg HS WILMAN Administration Theophylline 600 mg 03/18/23 09:00 03/18/23 08:38 Theophylline 24 Hour 300 Mg Cap.Er.24h PO 600 mg DAILY WILMAN Administration Intake and Output 03/17/23 03/18/23 03/18/23 22:59 06:59 14:59 Other: Voiding Method Toilet Toilet Urinal Urinal # Voids 2 03/18/23 05:46 03/18/23 05:46
--- NOTE | 2023-03-18 16:44 | P.PN ---
Subjective Progress Note Date: 03/18/23 (Pro-B SOFTWARE QA SYSTEM SPECIALIST elevated 3300 ) Progress note Date of service 03/18/[address] Ruelas. Patient seen and evaluated [id number] Discussed with his daughter and his son-in-law as well as the patient Vital signs stable and on the room air oxygen saturation is normal. Patient with the shortness of breath we obtained the proBNP which found to 3300 which is significantly elevated, patient with a history of stenting with the underlying coronary artery disease. Ordered echocardiogram result is pending to explain the above Ordered troponin 1 Ordered echocardiogram 2-D with Doppler to evaluate underlying reason for the above with a history of coronary artery disease. Patient seen by the nurse practitioner of cardiology indicating that there is no symptoms of congestive heart failure to explain the elevated pro-BNP but the wait for the echocardiogram and we requested clearance for stability and ability to discharge patient to a intermediate. I did discuss it with his daughter who requested [facility] intermediate and rehab for short period of rehabilitation then subsequently goes home with help of assisted living. I did express my concern to the daughter and regard of patient to be alone with the dementia as he forget to take his medication then he get into a problem with his lung and he doesn't record or member his medication with the forgetfulness. And also concern about his driving ability as well. channel program manager Gomez has been working with the patient and family for the intermediate and rehabilitation to fit for his problem and progressive dementia with initial agitation that started on Seroquel by Dr. Rudy Bautista the neurologist. Patient currently calm and he had devices to alarm if he going out of the chair and the to avoid sudden movements or falling attacks. On exam: Is conscious alert oriented at this time and able to recognize his daughter and feeling comfortable calm and quiet. HEENT no changes with left facial has symmetry. Neck was supple no JVD no thyromegaly no lymphadenopathy The chest: Significant improvement and no wheezes no rhonchi's at this time and his steroid has been decreased to 40 mg orally by mouth daily started tomorrow. Her the nurse practitioner of the pulmonary Dr. Bautista. Heart is regular sinus rhythm, echo was done and he had elevated pro-B SOFTWARE QA SYSTEM SPECIALIST Abdomen soft positive bowel sounds no tenderness Genitourinary he had no incontinent he had history of prostate and radiation for prostatic cancer. Extremities: Still wobbly on his feet need for further rehabilitation. And his pulses is intact on the lower extremities. Neurologically: Progressive dementia. EEG was done this abnormalities however no seizure disorder Assessment: #1 acute COPD exacerbation currently result #2 progressive dementia #3 extreme forgetfulness and need observation discussed with the daughter. Plan: #1 start with intermediate for rehabilitation #2 need subsequently 24 hour #3 encouragement of taken his medication appropriately. #4 once clearance from cardiology and counseling case manager find the available bed in the intermediate will move forward and discharge the patient Number 5L be seeing the patient tomorrow on 03/19/2023. Objective - Vital Signs Vital signs: Vital Signs Temp 97.5 F L 03/18/23 14:00 Pulse 80 03/18/23 15:32 Resp 16 03/18/23 02:00 BP 102/59 03/18/23 14:00 Pulse Ox 96 03/18/23 14:00 FiO2 Intake & Output 03/17/23 03/18/23 03/18/23 18:59 06:59 18:59 Output Total 150 Balance -150 Output: Urine 150 Other: Voiding Method Toilet Toilet Urinal Urinal # Voids 2 - Labs CBC & Chem 7: 03/18/23 05:46 03/18/23 05:46 Labs: Abnormal Lab Results - Last 24 Hours (Table) 03/18/23 03/18/23 Range/Units 05:46 05:46 WBC 19.02 H (4.50-10.00) X 10*3/uL RBC 3.42 L (4.40-5.60) X 10*6/uL Hgb 9.6 L (13.0-17.0) g/dL Hct 29.0 L (39.6-50.0) % RDW 15.1 H (11.5-14.5) % MPV 9.3 L (9.5-12.2) FL Neutrophils # 17.42 H (1.80-7.70) X 10*3/uL Lymphocytes # 0.70 L (0.90-5.00) X 10*3/uL Eosinophils # 0 L (0.04-0.35) X 10*3/uL Chloride 110 H (96-109) mmol/L Carbon Dioxide 18.7 L (21.6-31.8) mmol/L Anion Gap 12.30 H (4.00-12.00) mmol/L BUN 38.4 H (9.0-27.0) mg/dL Creatinine 1.8 H (0.6-1.5) mg/dL Est GFR (CKD-EPI) 36 L (>=60) BUN/Creatinine Ratio 21.33 H (12.00-20.00) Ratio Glucose 133 H (70-110) mg/dL Calcium 8.4 L (8.7-10.3) mg/dL Microbiology - Last 24 Hours (Table) 03/16/23 10:25 Urine Culture - Final Urine,Voided 03/15/23 15:15 Blood Culture - Preliminary Blood 03/15/23 15:00 Blood Culture - Preliminary Blood
--- NOTE | 2023-03-18 17:26 | CA ---
Transthoracic Echo Report Name: Praveen Parker Age: 83 Gender: M : 1940 Exam Date: 03/18/2023 14:34 Exam Location: [place] Echo Ht (in): 69 Wt (lb): 180 Ordering Physician: Kevin Griffin MD Attending/Referring Phys: Retention Specialist Renu Hall [facility] Procedure CPT: Indications: Congestive heart failure, history of stent, proBNP Cardiac Hx: Technical Quality: Fair Contrast 1: Total Dose (mL): Contrast 2: Total Dose (mL): MEASUREMENTS (Male / Female) Normal Values 2D ECHO LV Diastolic Diameter PLAX 3.8 cm 4.2 - 5.9 / 3.9 - 5.3 cm LV Systolic Diameter PLAX 2.3 cm IVS Diastolic Thickness 1.0 cm 0.6 - 1.0 / 0.6 - 0.9 cm LVPW Diastolic Thickness 0.9 cm 0.6 - 1.0 / 0.6 - 0.9 cm LV Relative Wall Thickness 0.5 LVOT Diameter 2.0 cm Ascending Aorta Diameter 3.2 cm M-MODE Aortic Root Diameter MM 2.8 cm LA Systolic Diameter MM 3.8 cm LA Ao Ratio MM 1.4 AV Cusp Separation MM 2.0 cm DOPPLER AV Peak Velocity 160.0 cm/s AV Peak Gradient 10.2 mmHg AV Mean Velocity 109.7 cm/s AV Mean Gradient 5.5 mmHg AV Velocity Time Integral 28.8 cm LVOT Peak Velocity 107.5 cm/s LVOT Peak Gradient 4.6 mmHg LVOT Velocity Time Integral 23.1 cm LVOT Stroke Volume 74.8 cm??? LVOT Stroke Volume Index 37.9 ml/m??? LVOT Cardiac Index 3017.4 cm???/min???m??? AV Area Cont Eq vti 2.6 cm??? AV Area Cont Eq pk 2.2 cm??? Mitral E Point Velocity 78.5 cm/s Mitral A Point Velocity 95.7 cm/s Mitral E to A Ratio 0.8 MV Deceleration Time 201.7 ms LV E' Septal Velocity 7.4 cm/s Mitral E to LV E' Septal Ratio 10.6 FINDINGS Left Ventricle Left ventricular cavity size at the upper limits of normal. Small left ventricular cavity. Normal left ventricular systolic function with no obvious regional wall motion abnormalities. Left ventricular ejection fraction is estimated at 55-60 %. Right Ventricle Normal right ventricular size. Unable to estimate the right ventricular systolic pressure. Right Atrium Normal right atrial size. Left Atrium Left atrial size at the upper limits of normal. Mitral Valve Moderate mitral annular calcification. Mild mitral regurgitation. Aortic Valve Trileaflet aortic valve. No aortic valve stenosis, mild regurgitation. Tricuspid Valve Structurally normal tricuspid valve. No tricuspid regurgitation. Pulmonic Valve Pulmonic valve not well visualized. Pericardium No pericardial effusion. Aorta Normal size aortic root and proximal ascending aorta. CONCLUSIONS 1. Normal left ventricular size and systolic function 2. Mild mitral and aortic regurgitation Previewed by: Dr. Conor Burris MD (Electronically Signed) Final Date: 18 March 2023 17:25
--- NOTE | 2023-03-18 17:50 | P.PN ---
Subjective Progress Note Date: 03/18/23 I am following up with the patient and he feels he don't well. He does not feel there is anything is wrong with him. Objective - Vital Signs Vital signs: Vital Signs Temp 97.5 F L 03/18/23 14:00 Pulse 80 03/18/23 15:32 Resp 16 03/18/23 02:00 BP 102/59 03/18/23 14:00 Pulse Ox 96 03/18/23 14:00 FiO2 Intake & Output 03/17/23 03/18/23 03/18/23 18:59 06:59 18:59 Output Total 150 Balance -150 Output: Urine 150 Other: Voiding Method Toilet Toilet Urinal Urinal # Voids 2 - Exam General: Lying in bed and does not appear in acute distress. Neuro: She is awake alert oriented to self and he stated he is in the hospital. He could not the response to the month or the year. He is following some simple commands. He is able to identify a few objects such as watch and the glasses and upon asking her mother.'s he correctly stated them and he stated I have one of them. Pupils are round equal reactive to light. Pupils are round tremulous bilaterally. Ocular movements intact no nystagmus. He has a intermittent blepharospasm of the left eye. Visual martinez are full to confrontation. Has mild left lower facial weakness He is moving upper and lower extremity above gravity. Some of the workup during his hospital visit consisted of: Patient is afebrile during this hospital visit. White blood cell is within normal limits His creatinine is 1.90, carbon dioxide is 19, initial plasma lactic acid the vein is 2.8-->4.1 then resolved. Sodium is 139, calcium is 9.5, magnesium is 1.8. ACL to is within normal limits CT of the head is reported as no acute intracranial process. Nonspecific white matter changes, likely secondary to chronic small vessel ischemic disease. I personally reviewed the CT head and the patient has generalized atrophy. Otherwise there is no acute or subacute ischemia there is no bleed. Vitamin B12: 1975 Folate: 18.4 TSH: 1.06 Ammonia <9 Routine EEG: Is abnormal. The background slowing is suggestive of moderate encephalopathy. Otherwise, there is no focal slowing, epileptiform discharge or seizure on the EEG. Carotid duplex: No hemodynamically significant internal carotid artery stenosis on either side. Unable to adequately visualize the right vertebral artery for assessment. 2-D echo was reported as normal left ventricular size is soft function. Mild mitral and aortic regurgitation Repeat CT of the head is reported as mild periventricular white matter ischemic type changes. No acute intracranial process evident. Follow-up MRI can be performed as clinically indicated. - Labs CBC & Chem 7: 03/18/23 05:46 03/18/23 05:46 Labs: Abnormal Lab Results - Last 24 Hours (Table) 03/18/23 03/18/23 Range/Units 05:46 05:46 WBC 19.02 H (4.50-10.00) X 10*3/uL RBC 3.42 L (4.40-5.60) X 10*6/uL Hgb 9.6 L (13.0-17.0) g/dL Hct 29.0 L (39.6-50.0) % RDW 15.1 H (11.5-14.5) % MPV 9.3 L (9.5-12.2) FL Neutrophils # 17.42 H (1.80-7.70) X 10*3/uL Lymphocytes # 0.70 L (0.90-5.00) X 10*3/uL Eosinophils # 0 L (0.04-0.35) X 10*3/uL Chloride 110 H (96-109) mmol/L Carbon Dioxide 18.7 L (21.6-31.8) mmol/L Anion Gap 12.30 H (4.00-12.00) mmol/L BUN 38.4 H (9.0-27.0) mg/dL Creatinine 1.8 H (0.6-1.5) mg/dL Est GFR (CKD-EPI) 36 L (>=60) BUN/Creatinine Ratio 21.33 H (12.00-20.00) Ratio Glucose 133 H (70-110) mg/dL Calcium 8.4 L (8.7-10.3) mg/dL Microbiology - Last 24 Hours (Table) 03/16/23 10:25 Urine Culture - Final Urine,Voided 03/15/23 15:15 Blood Culture - Preliminary Blood 03/15/23 15:00 Blood Culture - Preliminary Blood Assessment and Plan Assessment: This is an 83-year-old gentleman with history of dementia who presented because shortness of breath and neurology is consulted for altered mental status with dementia. Altered mental status: Unsure if he has worsening of confusion/encephalopathy due to steroid use On top of his underlying dementia--mentation seems to be mildly better compared to initial presentation Shortness of breath History of dementia Blepharospasm of the left eye Chronic kidney insufficiency Hypertension Plan: Unable to obtain MRI because patient is restless and unable to cooperate for the test. Patient had too CT of the head which are unremarkable for any acute or subacute ischemia. If possible to avoid the steroids because of a can cause confusion/psychosis. He is on Aricept and Namenda is no medication. On Seroquel 25mg daily at bedtime for his agitation. Can go up to 25 mg twice a day. Recommend the patient to follow-up with the neuropsychiatrist as an outpatient. Patient was notified to avoid driving causes of his confusion. Pulmonary team is on board We'll defer the rest of the medical management to primary team The plan was discussed with the patient's nurse. Otherwise no additional neurologic workup. Please notify neurology team if any further concerns. Time with Patient: Less than 30
[2023-03-18] MEDS: SODIUM CHLORIDE 0.9% 1,000 ML IV SCH (17:53)
[2023-03-18] MEDS: ATORVASTATIN 80 MG TAB PO SCH (20:06)
[2023-03-18] MEDS: DONEPEZIL 10 MG TAB PO SCH (20:06)
[2023-03-18] MEDS: QUEtiapine 25 MG TAB PO SCH (20:06)
[2023-03-19] MEDS: LEVOTHYROXINE 50 MCG TAB PO SCH (05:04)
[2023-03-19 06:11] LABS: African American GFR (CKD) 47 (>60 ml/min/1.73 sqM); Anion Gap 6 mmol/L; Blood Urea Nitrogen 42 mg/dL (9-20); Calcium 8.2 mg/dL (8.4-10.2); Carbon Dioxide 22 mmol/L (22-30); Chloride 112 mmol/L (98-107); Glucose 76 mg/dL (74-99); Non-African American GFR(CKD) 41 (>60 ml/min/1.73 sqM); Potassium 4.5 mmol/L (3.5-5.1); Sodium 140 mmol/L (137-145)
[2023-03-19] MEDS: IPRATROPIUM-ALBUTEROL 3 ML NEB INHALATION SCH ×3 (07:36→15:25)
[2023-03-19] MEDS: SYMBICORT 160-4.5 MCG INHALER INHALATION SCH (07:36)
[2023-03-19] MEDS ORDERED: ASPIRIN 81 MG PO SCH (09:00)
[2023-03-19] MEDS ORDERED: predniSONE 20 MG TAB PO SCH (09:00)
[2023-03-19] MEDS: FAMOTIDINE 20 MG TAB PO SCH (09:09)
[2023-03-19] MEDS: LOSARTAN 50 MG TAB PO SCH (09:09)
[2023-03-19] MEDS: MONTELUKAST 10 MG TAB PO SCH (09:09)
[2023-03-19] MEDS: THEOPHYLLINE 24 HOUR 300 MG CAP.ER.24H PO SCH (09:09)
[2023-03-19] MEDS: METOPROLOL TARTRATE 25 MG TAB PO SCH (09:09)
[2023-03-19] MEDS: MEMANTINE 10 MG TAB PO SCH (09:09)
--- NOTE | 2023-03-19 09:27 | P.PN ---
Subjective HISTORY OF PRESENT ILLNESS: This is a 83-year-old male with a past medical history significant for coronary artery disease with previous stenting, hypertension, hyperlipidemia, hypothyroidism, COPD, and dementia. Patient follows in the office with Dr. Worthington but has not been seen in the office since May 2019. We have been asked to see the patient in consultation for elevated BNP. Patient examined this afternoon. He is sitting up in the chair. His family is present. The patient is unsure why he came to the hospital. According to ER documentation, the patient presented with shortness of breath. He is being treated for COPD exacerbation. The patient denies any chest pain or pressure. He denies any shortness of breath. Denies any fever or cough. Denies any dizziness or lightheadedness. Patient's vital signs are stable. * EKG reveals sinus tachycardia with no signs of acute ischemia * Chest xray possible underlying COPD. No definite acute process. * Laboratory data: W BC 19.02. Hemoglobin 9.6. Platelet count 341. Sodium 141. Potassium 4.3. BUN 38. Creatinine 1.8. ProBNP 3300. * Current home cardiac medications include atorvastatin 80 mg at night, losartan 50 mg daily, metoprolol 25 mg twice a day. * Most recent echocardiogram obtained in October 2018 revealing ejection fraction 55%, mild aortic regurgitation, mild tricuspid regurgitation, mild mitral regurgitation * Cardiac catheterization history: 2007 with stenting of the LAD 03/19/2023 Patient examined this morning at the bedside. Patient denies any chest pain or pressure. He denies any shortness of breath. Echocardiogram completed revealing ejection fraction 55-60%, no wall motion abnormalities, mild mitral r egurgitation, and mild aortic regurgitation. PHYSICAL EXAM: VITAL SIGNS: Reviewed. GENERAL: Well-developed in no acute distress. HEENT: Head is normocephalic. Pupils are equal, round. Sclerae anicteric. Mucous membranes of the mouth are moist. Neck supple. No JVD or thyromegaly LUNGS: Respirations even and unlabored. Lungs diminished at the bases. No crackles auscultated. HEART: Regular rate and rhythm. S1 and S2 heard. Systolic murmur noted. ABDOMEN: Soft. Nondistended. Nontender. EXTREMITIES: Normal range of motion. No clubbing or cyanosis. Peripheral pulses intact. No lower extremity edema NEUROLOGIC: Awake and alert. Oriented 3 ASSESSMENT: Shortness of breath Acute COPD exacerbation Elevated proBNP without clinical evidence of congestive heart failure Coronary artery disease with previous stenting of the LAD, 2007 Chronic kidney disease Hypertension Hyperlipidemia Hypothyroidism History of dementia PLAN: Continue current cardiac medications Clinically, the patient is not in overt congestive heart failure. No diuretics are recommended at this time. Patient is currently stable for discharge from a cardiac perspective We will sign off. Please reconsult if needed. Nurse practitioner note has been reviewed by physician. Signing provider agrees with the documented findings, assessment, and plan of care. Objective - Vital Signs Vital signs: Vital Signs Temp 97.5 F L 03/19/23 07:35 Pulse 83 03/19/23 07:48 Resp 18 03/19/23 07:35 BP 132/80 03/19/23 07:35 Pulse Ox 96 03/19/23 07:35 FiO2 Intake & Output 03/18/23 03/19/23 03/19/23 18:59 06:59 18:59 Intake Total 600 Output Total 150 Balance 450 Intake: Oral 600 Output: Urine 150 Other: Voiding Method Toilet Toilet Urinal Urinal # Voids 2 3 - Labs CBC & Chem 7: 03/18/23 05:46 03/19/23 04:47 Labs: Abnormal Lab Results - Last 24 Hours (Table) 03/18/23 03/18/23 03/19/23 Range/Units 05:46 05:46 04:47 WBC 19.02 H (4.50-10.00) X 10*3/uL RBC 3.42 L (4.40-5.60) X 10*6/uL Hgb 9.6 L (13.0-17.0) g/dL Hct 29.0 L (39.6-50.0) % RDW 15.1 H (11.5-14.5) % MPV 9.3 L (9.5-12.2) FL Neutrophils # 17.42 H (1.80-7.70) X 10*3/uL Lymphocytes # 0.70 L (0.90-5.00) X 10*3/uL Eosinophils # 0 L (0.04-0.35) X 10*3/uL Chloride 110 H 112 H (96-109) mmol/L Carbon Dioxide 18.7 L (21.6-31.8) mmol/L Anion Gap 12.30 H (4.00-12.00) mmol/L BUN 38.4 H 42 H (9.0-27.0) mg/dL Creatinine 1.8 H 1.54 H (0.6-1.5) mg/dL Est GFR (CKD-EPI) 36 L (>=60) BUN/Creatinine Ratio 21.33 H (12.00-20.00) Ratio Glucose 133 H (70-110) mg/dL Calcium 8.4 L 8.2 L (8.7-10.3) mg/dL Microbiology - Last 24 Hours (Table) 03/15/23 15:15 Blood Culture - Preliminary Blood 03/15/23 15:00 Blood Culture - Preliminary Blood
--- NOTE | 2023-03-19 10:13 | P.PN ---
Subjective Progress Note Date: 03/19/23 83-year-old male who presented to the emergency department, at about 2:00 in the afternoon, on March 15. He apparently complained of being short of breath. He states he has been having shortness of breath, which is been progressively worse, over the last couple weeks. He also complained of fever and chills. The patient apparently has a history of coronary disease, COPD, dementia, gastroesophageal reflux disease, hypertension, and hyperlipidemia. He's had a previous heart catheterization with stent. The patient has been consulted, and, with skeletal have a CAT scan of the brain, an EEG. Currently, the patient's on room air. Is not receiving any IV fluids. Laboratory data includes a white count of 7.7, hemoglobin 11.5, hematocrit 35.1, and a normal platelet count. Sodium 138, potassium 5.1, chlorides 106, CO2 17, anion gap 15, BUN 24, and creatinine 1.9. Glucose 136. Urine was negative. Lactic acid initially 4.1, then 3, and then 1.4. Troponin was negative. Liver enzymes are normal. Testing for influenza, RSV, and coronavirus are all negative. Chest x-ray was positive for COPD. Brain CT showed nothing acute. The patient is seen today 03/17/2023 in follow-up on the regular medical floor. He is currently awake and alert. Poor historian. He is maintaining O2 saturati ons in the 90s on room air. No IV fluids. Doppler of the carotids revealed no significant stenosis. Computed tomography scan of the head revealed no acute intracranial process. EEG revealed background slowing suggestive of moderate encephalopathy. No focal slowing, epileptiform discharge or seizure activity noted. Blood cultures reveal no growth. He is continued on DuoNeb inhalations, Symbicort, Solu-Medrol and Singulair. Antibiotics in the form of Augmentin. Pro-calcitonin was 0.09. The patient is seen today 03/18/2023 in follow-up on the regular medical floor. He is awake and alert in no acute distress. Resting comfortably in bed. Maintaining O2 saturations in the 90s on room air. No IV fluids. He does still have an end expiratory wheeze. He is continued on DuoNeb inhalations, Symbicort, Solu-Medrol. Blood cultures reveal no growth. Urine culture revealed no growth. White count 19.0. Hemoglobin 9.6. Platelets 341. ProBNP 3300. Computed tomography scan of the brain revealed mild periventricular white matter ischemic type changes. No acute intracranial process. Barium swallow revealed no aspiration evident. The patient is seen today 03/19/2023 in follow-up on the regular medical floor. He is resting in bed. Awake and alert in no acute distress. He is maintaining good O2 saturation the mid 90s on room air. He's afebrile. Hemodynamically stable. Blood cultures revealed no growth. Urine culture revealed no growth. Sodium 140. Potassium 4.5. Bicarb 22. BUN 42. Creatinine 1.54. Glucose 76. He is continued on DuoNeb inhalations, Symbicort, Singulair, theophylline, prednisone taper. Objective - Vital Signs Vital signs: Vital Signs Temp 97.5 F L 03/19/23 07:35 Pulse 83 03/19/23 07:48 Resp 18 03/19/23 07:35 BP 132/80 03/19/23 07:35 Pulse Ox 96 03/19/23 07:35 FiO2 Intake & Output 03/18/23 03/19/23 03/19/23 18:59 06:59 18:59 Intake Total 600 Output Total 150 Balance 450 Intake: Oral 600 Output: Urine 150 Other: Voiding Method Toilet Toilet Urinal Urinal # Voids 2 3 - Exam GENERAL EXAM: Alert, 83-year-old male patient, on room air, poor historian, no apparent distress. HEAD: Normocephalic. EYES: Normal reaction of pupils, equal size. NOSE: Clear with pink turbinates. THROAT: No erythema or exudates. NECK: No masses, no JVD. CHEST: No chest wall deformity. LUNGS: Equal air entry with end expiratory wheeze, diminished. CVS: S1 and S2 normal with no audible murmur, regular rhythm. ABDOMEN: No hepatosplenomegaly, normal bowel sounds, no guarding or rigidity. SPINE: No scoliosis or deformity SKIN: No rashes CENTRAL NERVOUS SYSTEM: No focal deficits, tone is normal in all 4 extremities. EXTREMITIES: There is no peripheral edema. No clubbing, no cyanosis. Peripheral pulses are intact. - Labs CBC & Chem 7: 03/18/23 05:46 03/19/23 04:47 Labs: Abnormal Lab Results - Last 24 Hours (Table) 03/18/23 03/19/23 Range/Units 05:46 04:47 Chloride 110 H 112 H (96-109) mmol/L Carbon Dioxide 18.7 L (21.6-31.8) mmol/L Anion Gap 12.30 H (4.00-12.00) mmol/L BUN 38.4 H 42 H (9.0-27.0) mg/dL Creatinine 1.8 H 1.54 H (0.6-1.5) mg/dL Est GFR (CKD-EPI) 36 L (>=60) BUN/Creatinine Ratio 21.33 H (12.00-20.00) Ratio Glucose 133 H (70-110) mg/dL Calcium 8.4 L 8.2 L (8.7-10.3) mg/dL Microbiology - Last 24 Hours (Table) 03/15/23 15:15 Blood Culture - Preliminary Blood 03/15/23 15:00 Blood Culture - Preliminary Blood Assessment and Plan Assessment: Acute exacerbation of COPD History of hypertension History of hyperlipidemia History of CAD with previous stent placement History of hypothyroidism History of dementia Gastroesophageal reflux disease Plan: The patient was seen and evaluated Medications and labs reviewed Continue bronchodilators, theophylline, Singulair, steroid Case management working on discharge planning We will continue to follow This patient was seen independently by the nurse practitioner I have personally seen and examined the patient, performed the documentation and the assessment and plan as written. Number of minutes spent on the visit: 20.
--- NOTE | 2023-03-19 12:38 | P.DS ---
Providers Date of admission: 03/15/23 17:58 Expected date of discharge: 03/19/23 Attending physician: Kevin Griffin Consults: 03/16/23 09:27 Consult Physician Routine Consulting Provider: Rudy Bautista Consult Reason/Comments: confusion and dementia Do you want consulting provider notified?: Yes 03/16/23 09:28 Consult Physician Routine Consulting Provider: Ceci Stafford Consult Reason/Comments: COPD Do you want consulting provider notified?: Yes Primary care physician: Kevin Griffin Discharge summary Date of service 03/19/2003/28/[address] Griffin. Patient seen evaluated today Cleared by cardiology for discharge Cleared by pulmonary to be discharge Follow-up with the pulmonary as outpatient Follow-up with the cardiology. As outpatient Follow-up with the neurology as outpatient. Final diagnosis: #1 acute exacerbation of COPD #2 mild congestive heart failure cleared by cardiology. #3 underlying progressive dementia with abnormal EEG but no seizure disorders. #4. Left facial abnormality and drooping of the eyelid unexplainable by neurologist #5 walking abnormalities for gait improvement #6 coronary artery disease and history of stent left anterior descending in 2007. Disposition: #1 home with supervision however arrangement needed #2 [facility]/long-term for encouragement the patient was taken his medication which may cause his current problem as he forgets to take his me dication with the underlying dementia. Initial presentation to the emergency room to Dr. Santiago ER physician where he did treated him with no improvement needed to be admitted to the hospital with the consultation of pulmonary and critical care. The confusion disorientation and forgetfulness has been progressed significantly to need to the neurologist to see the patient. In the ER patient had UA urine culture and blood culture [address] of the brain no acute intracranial process, chronic small vessel disease done on 03/16/2023 CT of the brain repeated on 03/17/2023 as patient was agitated could not receive MRI of the brain and the results indicating mild preventricular white matter ischemic changes and no acute intracranial process. Was requested by neurologist Dr. Rudy Bautista Patient admitted to the hospital with the consultation of pulmonary treated with bronchodilator initially he has antibiotic and subsequently removed antibiotic by Dr. Bautista. Patient placed on steroid IV and Dr. Rudy Bautista neurologist suggested that could be from steroid with the confusion and steroid has been decreased gradually currently by mouth until followed by outpatient pulmonary. As hospital course with the wheezing expiratory in respiratory and rales probnp was 3300 with the underlying congestive heart failure and at that time consultation with the cardiology as well as echocardiogram was obtained with the ejection fraction 55-60%, they unable to estimate right ventricular systolic pressure. Indicating mild mitral and aortic regurgitation read by Dr. Burris clinical operations leader. As patient improved and cleared by pulmonary and cardiology to be discharged. We faced that arrangement to be discharged with the underlying dementia and needs supervision, [facility] versus foster home(family and patient is His daughters 05/19 faraway out of other town and not available, and current daughter that close by with severe debilitating diseases could not take care of him. On discharge: Temperature 97.5 F oral pulse 95 per regular sinus respiratory rate 18/m nonlabored, blood pressure 132/80 with a mean 97, oxygen saturation 96% on room air. Head was normocephalic and atraumatic. He had left facial as symmetry and abnormalities chronic Natural teeth, mildly hearing deficit Neck was supple no JVD no thyromegaly no lymphadenopathy trachea midline. Chest currently is clear no wheezes no rhonchi's. Normal breath sounds is oxygen saturation on room air 96%. Heart regular sinus rhythm and no chest pain Abdomen soft positive bowel sounds Extremities no edema and positive pulses Neurologically stable, he is awake alert this time but confused. Patient stable general condition for discharge home with supervision or to a [facility] when bed is available. Plan - Discharge Summary Discharge Rx Participant: No New Discharge Prescriptions: New predniSONE [Deltasone] 20 mg PO DAILY #14 tab Ipratropium-Albuterol Nebulize [Duoneb 0.5 mg-3 mg/3 ml Soln] 3 ml INHALATION RT-QID #120 each QUEtiapine [SEROquel] 25 mg PO HS #30 tab Aspirin 81 mg PO DAILY tab Budesonide-Formot 160-4.5 Mcg [Symbicort 160-4.5 Mcg Inhaler] 2 puff INHALATION RT-BID #1 each Continue Montelukast [Singulair] 10 mg PO DAILY Metoprolol Tartrate 25 mg PO BID Theophylline 12 Hour [Silvio-Dur] 300 mg PO BID Levothyroxine Sodium [Synthroid] 50 mcg PO DAILY Atorvastatin [Lipitor] 80 mg PO HS Famotidine [Pepcid] 20 mg PO BID Losartan [Cozaar] 50 mg PO DAILY Memantine [Namenda] 10 mg PO BID Donepezil [Aricept] 10 mg PO HS Discharge Medication List Metoprolol Tartrate 25 mg PO BID 05/27/17 [History] Montelukast [Singulair] 10 mg PO DAILY 05/27/17 [History] Theophylline 12 Hour [Silvio-Dur] 300 mg PO BID 05/27/17 [History] Atorvastatin [Lipitor] 80 mg PO HS 11/22/19 [History] Famotidine [Pepcid] 20 mg PO BID 11/22/19 [History] Levothyroxine Sodium [Synthroid] 50 mcg PO DAILY 11/22/19 [History] Donepezil [Aricept] 10 mg PO HS 03/15/23 [History] Losartan [Cozaar] 50 mg PO DAILY 03/15/23 [History] Memantine [Namenda] 10 mg PO BID 03/15/23 [History] Aspirin 81 mg PO DAILY tab 03/19/23 [Rx] Budesonide-Formot 160-4.5 Mcg [Symbicort 160-4.5 Mcg Inhaler] 2 puff INHALATION RT-BID #1 each 03/19/23 [Rx] Ipratropium-Albuterol Nebulize [Duoneb 0.5 mg-3 mg/3 ml Soln] 3 ml INHALATION RT-QID #120 each 03/19/23 [Rx] QUEtiapine [SEROquel] 25 mg PO HS #30 tab 03/19/23 [Rx] predniSONE [Deltasone] 20 mg PO DAILY #14 tab 03/19/23 [Rx] Follow up Appointment(s)/Referral(s): Kevin Griffin MD [Primary Care Provider] - 1-2 days
[2023-03-19 13:19] VITALS: BP 128/73; PULSE 60; RESP 19; TEMP 98.2
[2023-03-20] MEDS ORDERED: predniSONE 20 MG TAB PO SCH (09:00)
== END 2023-03-19 15:54 | disposition home or self-care (01) | DRG 191 ==
LOC: EC 14:01 → 5NMEDONC 17:58
PROVIDERS: ADMIT Internal Medicine; ATTEND Internal Medicine
DX: J44.1 Chronic obstructive pulmonary disease with (acute) exacerbation (principal); E87.20 Acidosis, unspecified; G93.40 Encephalopathy, unspecified; I13.0 Hypertensive heart and chronic kidney disease with heart failure and stage 1 through stage 4 chronic kidney disease, or unspecified chronic kidney disease; E03.9 Hypothyroidism, unspecified; E78.5 Hyperlipidemia, unspecified; F03.90 Unspecified dementia, unspecified severity, without behavioral disturbance, psychotic disturbance, mood disturbance, and anxiety; G24.5 Blepharospasm; I25.10 Atherosclerotic heart disease of native coronary artery without angina pectoris; H02.402 Unspecified ptosis of left eyelid; R13.10 Dysphagia, unspecified; I45.10 Unspecified right bundle-branch block; I08.3 Combined rheumatic disorders of mitral, aortic and tricuspid valves; H04.123 Dry eye syndrome of bilateral lacrimal glands; I50.9 Heart failure, unspecified; J30.9 Allergic rhinitis, unspecified; T66.XXXA Radiation sickness, unspecified, initial encounter; N39.498 Other specified urinary incontinence; N18.30 Chronic kidney disease, stage 3 unspecified; R26.89 Other abnormalities of gait and mobility; Z28.310 Unvaccinated for COVID-19; Z20.822 Contact with and (suspected) exposure to COVID-19; Z28.21 Immunization not carried out because of patient refusal; Z60.2 Problems related to living alone; K21.9 Gastro-esophageal reflux disease without esophagitis; Z79.890 Hormone replacement therapy; Z79.899 Other long term (current) drug therapy; Z85.46 Personal history of malignant neoplasm of prostate; Z88.1 Allergy status to other antibiotic agents; Z92.3 Personal history of irradiation; Z95.5 Presence of coronary angioplasty implant and graft
CPT/HCPCS: 36415; 70450; 71046; 74230; 80048; 80053; 81003; 82140; 82607; 82746; 83605; 83735; 83880; 84145; 84443; 84484; 85025; 85610; 85730; 87040; 87086; 87636; 93005; 93306; 93880; 94640; 95816; 96365; 96375; 99291

== ENCOUNTER 2023-04-08 19:13 | Inpatient (IN) | payer MEDICARE ==
[2023-04-08] MEDS ORDERED: NITROGLYCERIN SL TABS 0.4 MG TAB SUBLINGUAL PRN (19:22)
[2023-04-08 19:44] LABS: Basophils # (A) 0.1 k/uL (0-0.2); Basophils % (A) 1 %; Eosinophils # (A) 1.7 k/uL (0-0.7); Eosinophils % (A) 17 %; HCT 37.9 % (39.0-53.0); HGB 12.3 gm/dL (13.0-17.5); Lymphocytes # (A) 2.6 k/uL (1.0-4.8); Lymphocytes % (A) 27 %; MCH 28.3 pg (25.0-35.0); MCHC 32.5 g/dL (31.0-37.0); MCV 87.1 fL (80.0-100.0); Mean Platelet Volume 6.7; Monocytes # (A) 0.6 k/uL (0-1.0); Monocytes % (A) 7 %; Neutrophils # (A) 4.5 k/uL (1.3-7.7); Neutrophils % (A) 46 %; Platelet Count 405 k/uL (150-450); RBC 4.35 m/uL (4.30-5.90); RDW 14.6 % (11.5-15.5); WBC 9.8 k/uL (3.8-10.6)
[2023-04-08 19:58] LABS: ALT 28 U/L (4-49); AST 37 U/L (17-59); African American GFR (CKD) 38 (>60 ml/min/1.73 sqM); Albumin 4.1 g/dL (3.5-5.0); Alkaline Phosphatase 119 U/L (38-126); Anion Gap 13 mmol/L; Blood Urea Nitrogen 19 mg/dL (9-20); Calcium 9.6 mg/dL (8.4-10.2); Carbon Dioxide 20 mmol/L (22-30); Chloride 109 mmol/L (98-107); Glucose 92 mg/dL (74-99); Non-African American GFR(CKD) 33 (>60 ml/min/1.73 sqM); Potassium 4.4 mmol/L (3.5-5.1); Sodium 142 mmol/L (137-145); Total Bilirubin 0.4 mg/dL (0.2-1.3)
[2023-04-08 20:06] LABS: NT-Pro-B-Type Natriuretic Pept 480 pg/mL
[2023-04-08] MEDS ORDERED: ALBUTEROL NEBULIZED 2.5 MG/3 ML INHALATION STA ×2 (20:09→20:10)
[2023-04-08 20:13] LABS: INR 0.9 (<1.2); Partial Thromboplastin Time 24.2 sec (22.0-30.0); Prothrombin Time 10.2 sec (10.0-12.5)
--- NOTE | 2023-04-08 20:26 | ED ---
SOB HPI - General Chief Complaint: Shortness of Breath Stated Complaint: Chest Pain,sog Time Seen by Provider: 04/08/23 19:19 Source: patient Mode of arrival: ambulatory Limitations: no limitations - History of Present Illness Initial Comments: This patient is an 83-year-old man who presents to have evaluation for shortness of breath. The patient states that he was starting to feel little shortness of breath beginning last night. He states that it had worsened this afternoon into the evening. He became very short of breath and felt he needed to be seen here. Patient denies noting any fever or chills. Denies much of a cough. He is not having pain in the chest. No change in urination or bowel movements. No leg pain or swelling. Patient denies history of smoking. 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 MD Complaint: shortness of breath Onset/Timin -: days(s) Severity scale (1-10): 0 Consistency: constant Improves With: nothing Worsens With: nothing Associated Symptoms: denies other symptoms Treatments Prior to Arrival: none - Related Data Home Oxygen Therapy: No Home Medications Medication Instructions Recorded Confirmed Metoprolol Tartrate 25 mg PO BID 05/27/17 04/08/23 Montelukast [Singulair] 10 mg PO DAILY 05/27/17 04/08/23 Theophylline 12 Hour [Silvio-Dur] 300 mg PO BID 05/27/17 04/08/23 Atorvastatin [Lipitor] 80 mg PO HS 11/22/19 04/08/23 Famotidine [Pepcid] 20 mg PO BID 11/22/19 04/08/23 Levothyroxine Sodium [Synthroid] 50 mcg PO DAILY 11/22/19 04/08/23 Donepezil [Aricept] 10 mg PO HS 03/15/23 04/08/23 Losartan [Cozaar] 50 mg PO DAILY 03/15/23 04/08/23 Memantine [Namenda] 10 mg PO BID 03/15/23 04/08/23 Albuterol Sulfate [Albuterol 2 puff INHALATION RT-QID PRN 04/08/23 04/08/23 Sulfate Hfa] Previous Rx's Medication Instructions Recorded Aspirin 81 mg PO DAILY tab 03/19/23 Budesonide-Formot 160-4.5 Mcg 2 puff INHALATION RT-BID #1 each 03/19/23 [Symbicort 160-4.5 Mcg Inhaler] Ipratropium-Albuterol Nebulize 3 ml INHALATION RT-QID #120 each 03/19/23 [Duoneb 0.5 mg-3 mg/3 ml Soln] predniSONE [Deltasone] 40 mg PO DAILY #3 tab 04/11/23 Allergies Allergy/AdvReac Type Severity Reaction Status Date / Time ciprofloxacin [From Cipro] Allergy Rash/Hives Verified 04/08/23 21:44 Review of Systems ROS Statement: Those systems with pertinent positive or pertinent negative responses have been documented in the HPI. ROS Other: All systems not noted in ROS Statement are negative. Constitutional: Denies: fever, chills Respiratory: Reports: dyspnea, wheezes. Denies: cough Cardiovascular: Denies: chest pain, palpitations, edema, syncope Gastrointestinal: Denies: abdominal pain, vomiting, diarrhea Genitourinary: Denies: dysuria, hematuria Musculoskeletal: Denies: back pain Skin: Denies: rash Neurological: Denies: headache, weakness, confusion Past Medical History Past Medical History: Coronary Artery Disease (CAD), COPD, Dementia, GERD/Reflux, Hyperlipidemia, Hypertension Additional Past Medical History / Comment(s): dysphagia, states some memory loss History of Any Multi-Drug Resistant Organisms: None Reported Past Surgical History: Cholecystectomy, Heart Catheterization With Stent Additional Past Surgical History / Comment(s): corbin cataracts, EGD Past Anesthesia/Blood Transfusion Reactions: No Reported Reaction Date of Last Stent Placement:: unknown Past Psychological History: No Psychological Hx Reported Smoking Status: Never smoker Past Alcohol Use History: None Reported Past Drug Use History: None Reported - Past Family History Mother Family Medical History: Cancer Father Family Medical History: Cancer General Exam Limitations: no limitations General appearance: alert, in distress Head exam: Present: atraumatic, normocephalic Eye exam: Present: normal appearance. Absent: scleral icterus, conjunctival injection ENT exam: Present: normal oropharynx Neck exam: Present: normal inspection Respiratory exam: Present: respiratory distress, wheezes, accessory muscle use. Absent: rales, rhonchi, stridor, decreased breath sounds Cardiovascular Exam: Present: regular rate, normal rhythm, normal heart sounds. Absent: systolic murmur, diastolic murmur, rubs, gallop GI/Abdominal exam: Present: soft. Absent: distended, tenderness, guarding, rebound, rigid, mass Extremities exam: Present: normal inspection, normal capillary refill. Absent: pedal edema, calf tenderness Back exam: Present: normal inspection. Absent: CVA tenderness (R), CVA tende rness (L) Neurological exam: Present: alert Skin exam: Present: warm, dry, intact, normal color. Absent: rash Course Vital Signs 04/08/23 04/08/23 04/08/23 19:19 19:26 19:30 Temperature 97.5 F L Pulse Rate 97 98 Respiratory 32 H 30 H 32 H Rate Blood Pressure 170/97 124/86 O2 Sat by Pulse 98 100 Oximetry 04/08/23 04/08/23 04/09/23 21:05 21:30 02:12 Temperature 97.3 F L Pulse Rate 87 82 96 Respiratory 24 20 Rate Blood Pressure 138/73 127/57 O2 Sat by Pulse 100 4 L Oximetry Medical Decision Making - Medical Decision Making The patient had chest x-ray which I reported as negative for acute infiltrate, pneumothorax, congestive heart failure Was pt. sent in by a medical professional or institution (, PA, [facility], urgent care, hospital, or [facility]...) When possible be specific @ -[No] Did you speak to anyone other than the patient for history (EMS, parent, family, police, friend...)? What history was obtained from this source @ -[No] Did you review nursing and triage notes (agree or disagree)? Why? @ -[I reviewed and agree with nursing and triage notes] Were old charts reviewed (outside hosp., previous admission, EMS record, old EKG, old radiological studies, urgent care reports/EKG's, [facility] records)? Report findings @ -[No old charts were reviewed] Differential Diagnosis (chest pain, altered mental status, abdominal pain women, abdominal pain men, vaginal bleeding, weakness, fever, dyspnea, syncope, headache, dizziness, GI bleed, back pain, seizure, CVA, palpatations, mental health, musculoskeletal)? @ -[Differential Dyspnea: Coronary syndrome, arrhythmia, tamponade, asthma, COPD, pulmonary embolism, pneumonia, pneumothorax, pulmonary effusion, anaphylaxis, diabetic ketoacidosis, flailed chest, pulmonary contusion, diaphragmatic rupture, anemia, neuromuscul ar, this is not meant to be an all-inclusive list. EKG interpreted by me (3pts min.). @ -[I interpreted As above] X-rays interpreted by me (1pt min.). @ -[I interpreted as above CT interpreted by me (1pt min.). @ -[None done] U/S interpreted by me (1pt. min.). @ -[None done] What testing was considered but not performed or refused? (CT, X-rays, U/S, labs)? Why? @ -[None] What meds were considered but not given or refused? Why? @ -[None] Did you discuss the management of the patient with other professionals (professionals i.e. Dr., PA, [facility], lab, RT, psych nurse, social staff worker, reproduction production manager, teacher, employee service officer, pillowcase cleaner)? Give summary @ -[No] Was smoking cessation discussed for >3mins.? @ -[No] Was critical care preformed (if so, how long)? @ -[No] Were there social determinants of health that impacted care today? How? (Homeles sness, low income, unemployed, alcoholism, drug addiction, transportation, low edu. Level, literacy, decrease access to med. care, [facility]p, rehab)? @ -[No] Was there de-escalation of care discussed even if they declined (Discuss DNR or withdrawal of care, Hospice)? DNR status @ -[No] What co-morbidities impacted this encounter? (DM, HTN, Smoking, COPD, CAD, Cancer, CVA, ARF, Chemo, Hep., AIDS, mental health diagnosis, sleep apnea, morbid obesity)? @ -[History of COPD Was patient admitted / discharged? Hospital course, mention meds given and route, prescriptions, significant lab abnormalities, going to OR and other pertinent info. @ -Patient is a 83-year-old man here with dyspnea. The exam and workup consistent with COPD exacerbation. Patient be admitted to have further treatment. Case discussed with admitting physician and will have pulmonology consultation as well. Undiagnosed new problem with uncertain prognosis? @ -[No] Drug Therapy requiring intensive monitoring for toxicity (Heparin, Nitro, Insulin, Cardizem)? @ -[No] Were any procedures done? @ -[No] Diagnosis/symptom? @ -[Acute exacerbation of COPD Acute, or Chronic, or Acute on Chronic? @ -[Acute on chronic Uncomplicated (without systemic symptoms) or Complicated (systemic symptoms)? @ -[default] Side effects of treatment? @ -[No] Exacerbation, Progression, or Severe Exacerbation? @ -[Exacerbation Poses a threat to life or bodily function? How? (Chest pain, [place], [place], pneumonia, PE, COPD, DKA, ARF, appy, cholecystitis, CVA, Diverticulitis, Homicidal, Suicidal, threat to staff... and all critical care pts) @ -[Yes, untreated COPD he may progress to respiratory failure and - Lab Data Result diagrams: 04/08/23 19:27 04/08/23 19:27 Lab Results 04/08/23 04/08/23 04/08/23 Range/Units 19:27 19:27 19:27 WBC 9.8 (3.8-10.6) k/uL RBC 4.35 (4.30-5.90) m/uL Hgb 12.3 L (13.0-17.5) gm/dL Hct 37.9 L (39.0-53.0) % MCV 87.1 (80.0-100.0) fL MCH 28.3 (25.0-35.0) pg MCHC 32.5 (31.0-37.0) g/dL RDW 14.6 (11.5-15.5) % Plt Count 405 (150-450) k/uL MPV 6.7 Neutrophils % 46 % Lymphocytes % 27 % Monocytes % 7 % Eosinophils % 17 % Basophils % 1 % Neutrophils # 4.5 (1.3-7.7) k/uL Lymphocytes # 2.6 (1.0-4.8) k/uL Monocytes # 0.6 (0-1.0) k/uL Eosinophils # 1.7 H (0-0.7) k/uL Basophils # 0.1 (0-0.2) k/uL PT 10.2 (10.0-12.5) sec INR 0.9 (<1.2) APTT 24.2 (22.0-30.0) sec D-Dimer 2.57 H (<0.60) mg/L FEU Sodium 142 (137-145) mmol/L Potassium 4.4 (3.5-5.1) mmol/L Chloride 109 H (98-107) mmol/L Carbon Dioxide 20 L (22-30) mmol/L Anion Gap 13 mmol/L BUN 19 (9-20) mg/dL Creatinine 1.82 H (0.66-1.25) mg/dL Est GFR (CKD-EPI)AfAm 38 (>60 ml/min/1.73 sqM) Est GFR (CKD-EPI)NonAf 33 (>60 ml/min/1.73 sqM) Glucose 92 (74-99) mg/dL Plasma Lactic Acid Lawson (0.7-2.0) mmol/L Calcium 9.6 (8.4-10.2) mg/dL Magnesium 2.0 (1.6-2.3) mg/dL Total Bilirubin 0.4 (0.2-1.3) mg/dL AST 37 (17-59) U/L ALT 28 (4-49) U/L Alkaline Phosphatase 119 (38-126) U/L Troponin I (0.000-0.034) ng/mL NT-Pro-B Natriuret Pep 480 pg/mL Total Protein 7.0 (6.3-8.2) g/dL Albumin 4.1 (3.5-5.0) g/dL Influenza Type A (PCR) (Not Detectd) Influenza Type B (PCR) (Not Detectd) RSV (PCR) (Not Detectd) SARS-CoV-2 (PCR) (Not Detectd) 04/08/23 04/08/23 04/08/23 Range/Units 19:27 19:27 20:18 WBC (3.8-10.6) k/uL RBC (4.30-5.90) m/uL Hgb (13.0-17.5) gm/dL Hct (39.0-53.0) % MCV (80.0-100.0) fL MCH (25.0-35.0) pg MCHC (31.0-37.0) g/dL RDW (11.5-15.5) % Plt Count (150-450) k/uL MPV Neutrophils % % Lymphocytes % % Monocytes % % Eosinophils % % Basophils % % Neutrophils # (1.3-7.7) k/uL Lymphocytes # (1.0-4.8) k/uL Monocytes # (0-1.0) k/uL Eosinophils # (0-0.7) k/uL Basophils # (0-0.2) k/uL PT (10.0-12.5) sec INR (<1.2) APTT (22.0-30.0) sec D-Dimer (<0.60) mg/L FEU Sodium (137-145) mmol/L Potassium (3.5-5.1) mmol/L Chloride (98-107) mmol/L Carbon Dioxide (22-30) mmol/L Anion Gap mmol/L BUN (9-20) mg/dL Creatinine (0.66-1.25) mg/dL Est GFR (CKD-EPI)AfAm (>60 ml/min/1.73 sqM) Est GFR (CKD-EPI)NonAf (>60 ml/min/1.73 sqM) Glucose (74-99) mg/dL Plasma Lactic Acid Lawson 1.9 (0.7-2.0) mmol/L Calcium (8.4-10.2) mg/dL Magnesium (1.6-2.3) mg/dL Total Bilirubin (0.2-1.3) mg/dL AST (17-59) U/L ALT (4-49) U/L Alkaline Phosphatase (38-126) U/L Troponin I <0.012 (0.000-0.034) ng/mL NT-Pro-B Natriuret Pep pg/mL Total Protein (6.3-8.2) g/dL Albumin (3.5-5.0) g/dL Influenza Type A (PCR) Not Detected (Not Detectd) Influenza Type B (PCR) Not Detected (Not Detectd) RSV (PCR) Not Detected (Not Detectd) SARS-CoV-2 (PCR) Not Detected (Not Detectd) - EKG Data -: EKG Interpreted by [facility] EKG shows normal: sinus rhythm (With occasional supraventricular complexes.), axis (Normal), intervals ([place] Normal. QRS is borderline prolonged at 121 ms, consistent with a right bundle-branch block.), QRS complexes (Right bundle- branch block pattern.), ST-T waves (Normal) Rate: normal Disposition Clinical Impression: COPD exacerbation Disposition: ADMITTED IP TO THIS HOSP Condition: Fair Is patient prescribed a controlled substance at d/c from ED?: No
--- NOTE | 2023-04-08 20:33 | XR ---
EXAMINATION TYPE: XR chest 1V portable DATE OF EXAM: 04/08/2023 COMPARISON: 1123 INDICATION: TECHNIQUE: Single frontal view of the chest is obtained. FINDINGS: The heart size is normal. The pulmonary vasculature is normal. The lungs are clear. IMPRESSION: 1. No acute pulmonary process.
[2023-04-08] MEDS ORDERED: predniSONE 20 MG TAB PO STA (21:19)
[2023-04-08] MEDS ORDERED: SODIUM CHLORIDE 0.9% 500 ML 500 ML IV STA (21:22)
--- NOTE | 2023-04-09 00:20 | CT ---
EXAM: CT Angiography Chest With Intravenous Contrast CLINICAL HISTORY: Dyspnea, possible PE TECHNIQUE: Axial computed tomographic angiography images of the chest with intravenous contrast. CTDI is 12.1 mGy and DLP is 285.4 mGy-cm. This CT exam was performed using one or more of the following dose reduction techniques: automated exposure control, adjustment of the mA and/or kV according to patient size, and/or use of iterative reconstruction technique. MIP reconstructed images were created and reviewed. COMPARISON: Only plain radiographs performed earlier. No prior CT evaluation. FINDINGS: Limitations: There is respiratory artifact, which degrades image quality on multiple image slices. Pulmonary arteries: Accounting for limitations with respiratory artifact, there is no evidence for pulmonary embolism. Aorta: No acute findings. No thoracic aortic aneurysm. Lungs: Calcified granulomas noted involving the posterior medial left lower lobe. No focal airspace consolidation. There is peribronchial cuffing noted diffusely. Right upper lobe pulmonary nodule noted centrally, measuring 6 mm in maximum transverse dimension as seen on series 606, image 27. Pleural space: Unremarkable. No significant effusion. No pneumothorax. Heart: The cardiac chambers are normal in caliber. Coronary artery calcification is of uncertain clinical significance in patients of this age group. Bones/joints: No acute fracture. No dislocation. Soft tissues: Unremarkable. Lymph nodes: Subcentimeter bilateral hilar lymph nodes. Nonspecific subcentimeter AP window and paratracheal lymph nodes. IMPRESSION: 1. Accounting for limitations with respiratory artifact, there is no evidence for pulmonary embolism. 2. No focal airspace consolidation. There is peribronchial cuffing noted diffusely. Differential consideration includes chronic changes, inflammatory or infectious bronchitis. 3. Right upper lobe pulmonary nodule measuring 6 mm in maximum transverse dimension as seen on series 606, image 27. Fleischner Society Guidelines for low-risk patients recommend follow-up chest CT at 6-12 months. If unchanged, consider an additional follow-up CT at 18-24 months. For high-risk patients (smoking history or other known risk factors) recommend an initial follow-up chest CT at 6-12 months and if unchanged, 18-24 months.
[2023-04-09] MEDS ORDERED: IPRATROPIUM-ALBUTEROL 3 ML NEB INHALATION PRN (00:33)
[2023-04-09] MEDS ORDERED: NALOXONE 0.4 MG/ML 1 ML VIAL IVP PRN (00:33)
[2023-04-09] MEDS ORDERED: ALBUTEROL NEBULIZED 2.5 MG/3 ML INHALATION STA (00:40)
[2023-04-09] MEDS: DOXYCYCLINE 100 MG CAP PO SCH ×2 (08:18→21:39)
[2023-04-09] MEDS: predniSONE 20 MG TAB PO SCH (08:18)
[2023-04-09] MEDS: IPRATROPIUM-ALBUTEROL 3 ML NEB INHALATION SCH ×6 (09:00→18:41)
--- NOTE | 2023-04-09 12:05 | P.CNPUL ---
History of Present Illness Consult date: 04/09/23 Requesting physician: Kevin Griffin Reason for consult: COPD Chief complaint: Shortness of breath History of present illness: This is a pleasant 83-year-old male patient with a known history of tonic obstructive pulmonary disease, hyper tension, hyperlipidemia, hypothyroidism, dementia, coronary artery disease with previous stent placement. He presented here to the emergency room yesterday with complaints of increasing shortness of breath. No cough or congestion. No fever or chills. No hemoptysis. Chest x- ray revealed no acute pulmonary process. CT angiogram revealed no evidence of p ulmonary embolism. No focal airspace consolidation. 6 mm right upper lobe pulmonary nodule. White count 9.8. Hemoglobin 12.3. Platelets 405. D-dimer 2.57. Sodium 142. Potassium 4.4. Bicarb 20. BUN 19. Creatinine 1.82. Viral screen negative. He is seen today in consultation on the regular medical floor. He is currently resting comfortably in bed. Awake and alert in no acute distress. Denies any worsening shortness of breath, cough or congestion. His been initiated on DuoNeb inhalations, redness on taper, empiric antibiotics in the form of doxycycline. Review of Systems REVIEW OF SYSTEMS: CONSTITUTIONAL: Denies any recent significant weight loss or weight gain. EYES: Denies change in vision. EARS, NOSE, MOUTH, THROAT: Denies headaches, denies sore throat. CARDIOVASCULAR: Denies chest pain, palpitations or syncopal episodes. RESPIRATORY: Positive for shortness of breath, cough, congestion no hemoptysis. GASTROINTESTINAL: Denies change in appetite, denies abdominal pain GENITOURINARY: Denies hematuria, denies infections. MUSKULOSKELETAL: Denies pain, denies swelling. INTEGUMENTARY: Denies rash, denies eczema. NEUROLOGICAL: Denies recent memory loss, no recent seizure activity. PSYCHIATRIC: Denies anxiety, denies depression. HEMATOLOGIC/LYMPHATIC: Denies anemia, denies enlarged lymph nodes. Past Medical History Past Medical History: Coronary Artery Disease (CAD), COPD, Dementia, GERD/Reflux, Hyperlipidemia, Hypertension Additional Past Medical History / Comment(s): dysphagia, states some memory loss History of Any Multi-Drug Resistant Organisms: None Reported Past Surgical History: Cholecystectomy, Heart Catheterization With Stent Additional Past Surgical History / Comment(s): corbin cataracts, EGD Past Anesthesia/Blood Transfusion Reactions: No Reported Reaction Date of Last Stent Placement:: unknown Past Psychological History: No Psychological Hx Reported Additional Psychological History / Comment(s): memory loss Smoking Status: Never smoker Past Alcohol Use History: None Reported Past Drug Use History: None Reported - Past Family History Mother Family Medical History: Cancer Father Family Medical History: Cancer Medications and Allergies Home Medications Medication Instructions Recorded Confirmed Type Metoprolol Tartrate 25 mg PO BID 05/27/17 04/08/23 History Montelukast [Singulair] 10 mg PO DAILY 05/27/17 04/08/23 History Theophylline 12 Hour [Silvio-Dur] 300 mg PO BID 05/27/17 04/08/23 History Atorvastatin [Lipitor] 80 mg PO HS 11/22/19 04/08/23 History Famotidine [Pepcid] 20 mg PO BID 11/22/19 04/08/23 History Levothyroxine Sodium [Synthroid] 50 mcg PO DAILY 11/22/19 04/08/23 History Donepezil [Aricept] 10 mg PO HS 03/15/23 04/08/23 History Losartan [Cozaar] 50 mg PO DAILY 03/15/23 04/08/23 History Memantine [Namenda] 10 mg PO BID 03/15/23 04/08/23 History Aspirin 81 mg PO DAILY tab 03/19/23 04/08/23 Rx Budesonide-Formot 160-4.5 Mcg 2 puff INHALATION RT-BID #1 each 03/19/23 04/08/23 Rx [Symbicort 160-4.5 Mcg Inhaler] Ipratropium-Albuterol Nebulize 3 ml INHALATION RT-QID #120 each 03/19/23 04/08/23 Rx [Duoneb 0.5 mg-3 mg/3 ml Soln] QUEtiapine [SEROquel] 25 mg PO HS #30 tab 03/19/23 04/08/23 Rx Albuterol Sulfate [Albuterol 2 puff INHALATION RT-QID PRN 04/08/23 04/08/23 History Sulfate Hfa] Allergies Allergy/AdvReac Type Severity Reaction Status Date / Time ciprofloxacin [From Cipro] Allergy Rash/Hives Verified 04/08/23 21:44 Physical Exam Vitals: Vital Signs Temp Pulse Pulse Resp BP BP Pulse Ox 04/09/23 09:01 97 04/09/23 07:30 97 14 04/09/23 07:17 97.6 F 105 H 17 121/60 91 L 04/09/23 03:31 97.5 F L 97 14 120/66 95 04/09/23 03:20 97.6 F 100 20 124/72 94 L 04/09/23 02:12 97.3 F L 96 20 127/57 4 L 04/08/23 21:30 82 24 138/73 100 04/08/23 21:05 87 04/08/23 19:30 32 H 04/08/23 19:26 98 30 H 124/86 100 04/08/23 19:19 97.5 F L 97 32 H 170/97 98 Intake and Output 04/08/23 04/09/23 04/09/23 22:59 06:59 14:59 Other: Weight 81.647 kg 81.647 kg GENERAL EXAM: Alert, pleasant 83-year-old male, on room air, comfortable in no apparent distress. HEAD: Normocephalic. EYES: Normal reaction of pupils, equal size. NOSE: Clear with pink turbinates. THROAT: No erythema or exudates. NECK: No masses, no JVD. CHEST: No chest wall deformity. LUNGS: Equal air entry with no crackles, wheeze, rhonchi or dullness. CVS: S1 and S2 normal with no audible murmur, regular rhythm. ABDOMEN: No hepatosplenomegaly, normal bowel sounds, no guarding or rigidity. SPINE: No scoliosis or deformity SKIN: No rashes CENTRAL NERVOUS SYSTEM: No focal deficits, tone is normal in all 4 extremities. EXTREMITIES: There is no peripheral edema. No clubbing, no cyanosis. Peripheral pulses are intact. Results - Laboratory Findings CBC and BMP: 04/08/23 19:27 04/08/23 19:27 PT/INR, D-dimer PT 10.2 sec (10.0-12.5) 04/08/23 19: INR 0.9 (<1.2) 04/08/23 19:27 D-Dimer 2.57 mg/L FEU (<0.60) H 04/08/23 19:27 Abnormal lab findings: Abnormal Labs 04/08/23 04/08/23 04/08/23 19:27 19:27 19:27 Hgb 12.3 L Hct 37.9 L Eosinophils # 1.7 H D-Dimer 2.57 H Chloride 109 H Carbon Dioxide 20 L Creatinine 1.82 H - Diagnostic Findings Chest x-ray: image reviewed CT scan - chest: image reviewed Assessment and Plan Assessment: Acute exacerbation of chronic obstructive pulmonary disease History of hypertension History of hyperlipidemia Coronary disease previous stent placement Hypothyroidism Dementia Gastric esophageal reflux disease Plan: The patient was seen and evaluated CT angiogram, chest x-ray, labs and medications reviewed Continue bronchodilators, steroids Continue Vibramycin for now Check a pro-calcitonin Increase his activity as tolerated We will continue to follow and make further recommendations based on his clinical status I have personally seen and examined the patient, performed the documentation and the assessment and plan as written. Number of minutes spent on the visit: 20.
[2023-04-09] MEDS ORDERED: ALBUTEROL HFA INHALER INHALATION PRN (14:34)
--- NOTE | 2023-04-09 15:54 | P.HPIM ---
History of Present Illness H&P Date: 04/09/23 (Shortness of breath) Chief Complaint: Shortness of breath with the wheezing rhonchi in the ER with failure of [place] History and physical Date of service 04/09/[address] Griffin. Chief complaint shortness of breath. History of present illness: 83 years old white male experience shortness of breath at home started that night and worsening however in the afternoon he started to feel it subsequently he drove himself to the ER at [facility] and seen by ER physician Dr. King. Peripheral stated that patient short of breath and wheezing and failure of the treatment in the ER and requested the patient to be admitted. He denied any cough and no fever no chills pain but he short of breath he had no bowel movement changes no edema of the extremities and no smoking history. 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 Past medical history: #1 history of dementia progressive. #2 hypothyroidism #3 COPD. #4 degenerative arthritis generalized with history of SI joint inflammation resulted with injection. History of redundant eyelid however seen by pelt dropper and is reluctant for any surgery. 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 #6 coronary artery disease #7 GERD disease #8 hyperlipidemia #9 cardiac catheterization with with stent placement #10 bilateral cataract and lens implant. Family history: had 2 daughters one in [facility] and one out of the town .[place]. Cancer father and mother. Review of system: Pulmonary: Shortness of breath drove himself to the ER Cardiovascular no chest pain history of coronary artery disease and stent placement and cardiac cath Neuropsychiatry, dementia progressive Gastroenterology: No abdominal pain no nausea no vomiting no diarrhea no cons tipation. Endocrine hypothyroidism no history of diabetes. Musculoskeletal: Ambulatory with the underlying arthritis of the joint and the spine degenerative in nature. Rest of review of system noncontributory. Physical exam: Vital signs on admission indicating temperature 97.5, respiratory rate 32 and repeat 30 Blood pressure 170/97 with hypertensive and pulse ox was 98%. Laboratories: Platelet count 405 WBC 9.8, hemoglobin 12.3, hematocrit 37.9. D-dimer was 2.57 elevated and patient underwent CT angiogram was negative for PE. His creatinine 1.8 to, and the BUN 19, estimated glomerular filtration rate 33 with the chronic kidney disease stage III Liver enzyme within normal limit and a pro-BNP for ADD normal protein and albumin. Troponin 1 less than 0.012. Influenza vaccine PCR A and a negative, RSV negative, start his CRVsterile PCR negative On the physical exam: Patient is conscious alert oriented forgetful ambulatory and moving 4 extremities able to answer questions and swallow and eat without difficulties. Head was normocephalic and atraumatic, oropharynx natural teeth, fascial asymmetry, mild hearing deficit Neck was supple no JVD no thyromegaly no lymphadenopathy trachea midline Chest: Increased anteroposterior diameter with a history of COPD with history of asthma and he is steroid dependent Scattered wheezes on the basis and the chest CT indicating that peribronchial c uffing with the underlying acute bronchitis Heart regular sinus rhythm. No chest pain Abdomen soft positive bowel sounds Extremities no ankle edema or leg edema and positive pulses. Neurologically stable except for the dementia and forget fullness Assessment: #1 acute COPD exacerbation not relieved by ER treatment #2 hypertension and tachypnea in the ER #3 negative PE by the computed tomography scan, and positive peribronchial cuffing which indicate acute bronchitis. #4 hypothyroidism #5 coronary artery disease and atherosclerotic artery disease 1 stent #6 fascial asymmetry #7 advanced dementia. Plan: #1 the bronchodilator No. 2 oh steroid No. 3 antibiotic #[address] Bautista who did see him and adjust his medication #5 I did call his daughter Edwige and discussed with her the [facility] with the his dementia and forget fullness advances probably [facility] #6 we did consult social work administrator and the top case assembler with the plan on Tuesday. Past Medical History Past Medical History: Coronary Artery Disease (CAD), COPD, Dementia, GERD/Reflux, Hyperlipidemia, Hypertension Additional Past Medical History / Comment(s): dysphagia, states some memory loss History of Any Multi-Drug Resistant Organisms: None Reported Past Surgical History: Cholecystectomy, Heart Catheterization With Stent Additional Past Surgical History / Comment(s): corbin cataracts, EGD Past Anesthesia/Blood Transfusion Reactions: No Reported Reaction Date of Last Stent Placement:: unknown Past Psychological History: No Psychological Hx Reported Additional Psychological History / Comment(s): memory loss Smoking Status: Never smoker Past Alcohol Use History: None Reported Past Drug Use History: None Reported - Past Family History Mother Family Medical History: Cancer Father Family Medical History: Cancer Medications and Allergies Home Medications Medication Instructions Recorded Confirmed Type Metoprolol Tartrate 25 mg PO BID 05/27/17 04/08/23 History Montelukast [Singulair] 10 mg PO DAILY 05/27/17 04/08/23 History Theophylline 12 Hour [Silvio-Dur] 300 mg PO BID 05/27/17 04/08/23 History Atorvastatin [Lipitor] 80 mg PO HS 11/22/19 04/08/23 History Famotidine [Pepcid] 20 mg PO BID 11/22/19 04/08/23 History Levothyroxine Sodium [Synthroid] 50 mcg PO DAILY 11/22/19 04/08/23 History Donepezil [Aricept] 10 mg PO HS 03/15/23 04/08/23 History Losartan [Cozaar] 50 mg PO DAILY 03/15/23 04/08/23 History Memantine [Namenda] 10 mg PO BID 03/15/23 04/08/23 History Aspirin 81 mg PO DAILY tab 03/19/23 04/08/23 Rx Budesonide-Formot 160-4.5 Mcg 2 puff INHALATION RT-BID #1 each 03/19/23 04/08/23 Rx [Symbicort 160-4.5 Mcg Inhaler] Ipratropium-Albuterol Nebulize 3 ml INHALATION RT-QID #120 each 03/19/23 04/08/23 Rx [Duoneb 0.5 mg-3 mg/3 ml Soln] QUEtiapine [SEROquel] 25 mg PO HS #30 tab 03/19/23 04/08/23 Rx Albuterol Sulfate [Albuterol 2 puff INHALATION RT-QID PRN 04/08/23 04/08/23 History Sulfate Hfa] Allergies Allergy/AdvReac Type Severity Reaction Status Date / Time ciprofloxacin [From Cipro] Allergy Rash/Hives Verified 04/08/23 21:44 Physical Exam Vitals: Vital Signs Temp Pulse Pulse Resp BP BP Pulse Ox 04/09/23 13:05 100 04/09/23 12:48 104 H 04/09/23 09:01 97 04/09/23 07:30 97 14 04/09/23 07:17 97.6 F 105 H 17 121/60 91 L 04/09/23 03:31 97.5 F L 97 14 120/66 95 04/09/23 03:20 97.6 F 100 20 124/72 94 L 04/09/23 02:12 97.3 F L 96 20 127/57 4 L 04/08/23 21:30 82 24 138/73 100 04/08/23 21:05 87 04/08/23 19:30 32 H 04/08/23 19:26 98 30 H 124/86 100 04/08/23 19:19 97.5 F L 97 32 H 170/97 98 Intake and Output 04/09/23 04/09/23 04/09/23 06:59 14:59 22:59 Other: Weight 81.647 kg Results CBC & Chem 7: 04/08/23 19:27 04/08/23 19:27 Labs: Abnormal Lab Results - Last 24 Hours (Table) 04/08/23 04/08/23 04/08/23 Range/Units 19:27 19:27 19:27 Hgb 12.3 L (13.0-17.5) gm/dL Hct 37.9 L (39.0-53.0) % Eosinophils # 1.7 H (0-0.7) k/uL D-Dimer 2.57 H (<0.60) mg/L FEU Chloride 109 H (98-107) mmol/L Carbon Dioxide 20 L (22-30) mmol/L Creatinine 1.82 H (0.66-1.25) mg/dL Thrombosis Risk Factor Assmnt - Choose All That Apply Any of the Below Risk Factors Present?: Yes Each Factor Represents 1 point: Abnormal pulmonary function (COPD), Obesity (BMI >25) Other Risk Factors: No Other congenital or acquired thrombophilia - If yes, enter type in comment: No Thrombosis Risk Factor Assessment Total Risk Factor Score: 2 Thrombosis Risk Factor Assessment Level: Low Risk
[2023-04-09] MEDS: ASPIRIN 81 MG PO SCH (16:49)
[2023-04-09] MEDS: SYMBICORT 160-4.5 MCG INHALER INHALATION SCH (18:33)
[2023-04-09] MEDS ORDERED: QUEtiapine 25 MG TAB PO SCH (21:00)
[2023-04-09] MEDS: FAMOTIDINE 20 MG TAB PO SCH (21:39)
[2023-04-09] MEDS: METOPROLOL TARTRATE 25 MG TAB PO SCH (21:39)
[2023-04-09] MEDS: MEMANTINE 10 MG TAB PO SCH (21:39)
[2023-04-09] MEDS: THEOPHYLLINE 24 HOUR 300 MG CAP.ER.24H PO SCH (21:39)
[2023-04-09] MEDS: DONEPEZIL 10 MG TAB PO SCH (21:39)
[2023-04-09] MEDS: ATORVASTATIN 80 MG TAB PO SCH (21:39)
[2023-04-10] MEDS: LEVOTHYROXINE 50 MCG TAB PO SCH (06:21)
[2023-04-10] MEDS: FAMOTIDINE 20 MG TAB PO SCH ×2 (08:36→19:48)
[2023-04-10] MEDS: predniSONE 20 MG TAB PO SCH (08:36)
[2023-04-10] MEDS: MONTELUKAST 10 MG TAB PO SCH (08:36)
[2023-04-10] MEDS: METOPROLOL TARTRATE 25 MG TAB PO SCH ×2 (08:36→19:47)
[2023-04-10] MEDS: ASPIRIN 81 MG PO SCH (08:36)
[2023-04-10] MEDS: MEMANTINE 10 MG TAB PO SCH ×2 (08:36→19:48)
[2023-04-10] MEDS: DOXYCYCLINE 100 MG CAP PO SCH (08:36)
[2023-04-10] MEDS: LOSARTAN 50 MG TAB PO SCH (08:36)
[2023-04-10] MEDS: SYMBICORT 160-4.5 MCG INHALER INHALATION SCH ×2 (08:54→21:48)
[2023-04-10] MEDS: IPRATROPIUM-ALBUTEROL 3 ML NEB INHALATION SCH ×4 (08:54→21:49)
--- NOTE | 2023-04-10 13:39 | P.PN ---
Subjective Progress Note Date: 04/10/23 This is a pleasant 83-year-old male patient with a known history of tonic obstructive pulmonary disease, hyper tension, hyperlipidemia, hypothyroidism, dementia, coronary artery disease with previous stent placement. He presented here to the emergency room yesterday with complaints of increasing shortness of breath. No cough or congestion. No fever or chills. No hemoptysis. Chest x- ray revealed no acute pulmonary process. CT angiogram revealed no evidence of pulmonary embolism. No focal airspace consolidation. 6 mm right upper lobe pulmonary nodule. White count 9.8. Hemoglobin 12.3. Platelets 405. D-dimer 2.57. Sodium 142. Potassium 4.4. Bicarb 20. BUN 19. Creatinine 1.82. Viral screen negative. He is seen today in consultation on the regular medical floor. He is currently resting comfortably in bed. Awake and alert in no acute distress. Denies any worsening shortness of breath, cough or congestion. His been initiated on DuoNeb inhalations, redness on taper, empiric antibiotics in the form of doxycycline. The patient is seen today 04/10/2023 in follow-up on the regular medical floor. He is currently sitting up in bed. Awake and alert in no acute distress. He is breathing quite a bit better today compared to yesterday. He is maintaining O2 saturations in the 90s on room air. Pro calcitonin 0.07. He is continued on DuoNeb inhalations, Symbicort, Singulair, theophylline and a prednisone taper. Antibiotics in the form of doxycycline. Objective - Vital Signs Vital signs: Vital Signs Temp 97.6 F 04/10/23 07:18 Pulse 92 04/10/23 12:42 Resp 18 04/10/23 07:45 BP 135/75 04/10/23 07:18 Pulse Ox 100 04/10/23 08:54 FiO2 Intake & Output 04/09/23 04/10/23 04/10/23 18:59 06:59 18:59 Weight 55 kg Other: # Voids 2 2 1 - Exam GENERAL EXAM: Alert, pleasant 83-year-old male, resting in bed, on room air, comfortable in no apparent distress. HEAD: Normocephalic. EYES: Normal reaction of pupils, equal size. NOSE: Clear with pink turbinates. THROAT: No erythema or exudates. NECK: No masses, no JVD. CHEST: No chest wall deformity. LUNGS: Equal air entry with no crackles, wheeze, rhonchi or dullness. CVS: S1 and S2 normal with no audible murmur, regular rhythm. ABDOMEN: No hepatosplenomegaly, normal bowel sounds, no guarding or rigidity. SPINE: No scoliosis or deformity SKIN: No rashes CENTRAL NERVOUS SYSTEM: No focal deficits, tone is normal in all 4 extremities. EXTREMITIES: There is no peripheral edema. No clubbing, no cyanosis. Peripheral pulses are intact. - Labs CBC & Chem 7: 04/08/23 19:27 04/08/23 19:27 Assessment and Plan Assessment: Acute exacerbation of chronic obstructive pulmonary disease and no evidence of pneumonia. Pro-calcitonin 0.05 History of hypertension History of hyperlipidemia Coronary disease previous stent placement Hypothyroidism Dementia Gastric esophageal reflux disease Plan: The patient was seen and evaluated Medications reviewed Discontinue Vibramycin Pro-calcitonin within normal limits Continue his home pulmonary medications Continue prednisone taper Cleared for discharge from the pulmonary standpoint I have personally seen and examined the patient, performed the documentation and the assessment and plan as written. Number of minutes spent on the visit: 10.
--- NOTE | 2023-04-10 14:56 | P.PN ---
Subjective Progress Note Date: 04/10/23 Progress note Date of service 05/07/[address] Ruelas Patient seen and evaluated [id number] Patient is severely dementia with forgetfulness and he was wondering that I did not see him yesterday however I did admit him and I did talk to him and I did talk to his daughter Edwige and I told him at that time Patient completely forget a conversation with the progressive dementia He had several question and he wonder why he should go to the dementia unit or rehabilitation for underlying risks which I did explain that to him With the discussion I expressed to him my concern for driving as he should not drive, #2 he need for his security and safety A need observation in a dementia unit in [facility] or medical [facility] [place]. The arrangement that he had at home is a temporary arrangement they make him and see him and then leave and subsequently he is alone. Patient stated that he capable to drive however with the winter months and the snow and accident that is anticipated in the winter and how he can avoid with his forgetfulness. I did talk to his daughter Edwige yesterday on the phone extensively and I told them my medical opinion for his safety. ICU his much of resistance from his daughter and the patient himself for feeling of loss of his freedom. But my medical opinion with safety expressed to him very strongly. Patient also his second admission to the hospital and he forget to take his medication then become gradually exacerbated especially if he did not take his inhalation therapy. The nurse practitioner of the pulmonary team Dr. Bautista did see him today and cleared him for discharge and they discontinue the Vibramycin. On the examination of the patient I did also funeral planning counselor him regarding to wait until tomorrow for Tuesday to see the clinical case manager and the social group worker for possibly admission to dementia unit in [facility]. However patient and his daughters if the [place] for going back home and constant observation for his advanced the risk and safety that would be up to them but from my medical 0.30 is inappropriate Vital sign 2 this morning: Temperature 97.6 F oral, heart rate 75 bpm, respiratory rate 18/m nonlabored, blood pressure 135/75, mean 95, his oxygen saturation 99%. Patient is conscious alert but he is forgetful and in event of the recent event. Head was normocephalic and atraumatic pupil was equal are reactive he had patient has symmetric, oropharynx natural teeth Neck was supple no JVD no thyromegaly no lymphadenopathy trachea midline. Chest was increased anteroposterior diameter however no wheezes and no rales with significant improvement. The heart: Regular sinus rhythm no chest pain Abdomen soft positive bowel sounds no tenderness in the 4 quadrants. Extremities no edema. He Neurologically: Patient has severe him dementia moving 4 extremities. Assessment: #1 acute exacerbation of COPD probably secondary missing his medication with the underlying dementia #2 computed tomography scan done on admission no PE #3 there is a coughing of bronchial tree with the underlying bronchitis seen and treated by pulmonary Dr. Bautista. #4 severe admitted advanced dementia. #5 hypertension on admission resolved, a tachypnea on admission result #6 currently patient on steroid continue. Recommendation and plan: Patient with advanced dementia and forgetfulness and he has safety concern discussed with the patient We'll wait for tomorrow to be seen by clinical case manager and space planner and the possible discharge to dementia unit in one of the nursing facility. And will wait for the workup and opinion for tomorrow And the plan to ambulate the patient today as tolerated with engineer first assistant and tomorrow may be able to be discharged to nursing facility or if he is not accepted by the [facility] will be the decision of his daughters and the continue observation and avoiding the risks and patient should not be driving as well Objective - Vital Signs Vital signs: Vital Signs Temp 97.6 F 04/10/23 07:18 Pulse 75 04/10/23 14:00 Resp 18 04/10/23 14:00 BP 135/75 04/10/23 07:18 Pulse Ox 100 04/10/23 08:54 FiO2 Intake & Output 04/09/23 04/10/23 04/10/23 18:59 06:59 18:59 Weight 55 kg Other: # Voids 2 2 1 - Labs CBC & Chem 7: 04/08/23 19:27 04/08/23 19:27
[2023-04-10] MEDS: ATORVASTATIN 80 MG TAB PO SCH (19:47)
[2023-04-10] MEDS: DONEPEZIL 10 MG TAB PO SCH (19:47)
[2023-04-10] MEDS: THEOPHYLLINE 24 HOUR 300 MG CAP.ER.24H PO SCH (19:48)
[2023-04-11] MEDS: LEVOTHYROXINE 50 MCG TAB PO SCH (06:53)
[2023-04-11 07:17] VITALS: BP 139/78; RESP 16; TEMP 97.8
[2023-04-11] MEDS: ASPIRIN 81 MG PO SCH (08:39)
[2023-04-11] MEDS: MONTELUKAST 10 MG TAB PO SCH (08:39)
[2023-04-11] MEDS: predniSONE 20 MG TAB PO SCH (08:40)
[2023-04-11] MEDS: MEMANTINE 10 MG TAB PO SCH (08:40)
[2023-04-11] MEDS: METOPROLOL TARTRATE 25 MG TAB PO SCH (08:40)
[2023-04-11] MEDS: FAMOTIDINE 20 MG TAB PO SCH (08:40)
[2023-04-11] MEDS: LOSARTAN 50 MG TAB PO SCH (08:40)
[2023-04-11] MEDS: IPRATROPIUM-ALBUTEROL 3 ML NEB INHALATION SCH ×2 (08:51→12:10)
[2023-04-11] MEDS: SYMBICORT 160-4.5 MCG INHALER INHALATION SCH (08:51)
[2023-04-11 12:24] VITALS: PULSE 86
--- NOTE | 2023-04-11 13:11 | P.PN ---
Subjective Progress Note Date: 04/11/23 This is a pleasant 83-year-old male patient with a known history of tonic obstructive pulmonary disease, hyper tension, hyperlipidemia, hypothyroidism, dementia, coronary artery disease with previous stent placement. He presented here to the emergency room yesterday with complaints of increasing shortness of breath. No cough or congestion. No fever or chills. No hemoptysis. Chest x- ray revealed no acute pulmonary process. CT angiogram revealed no evidence of pulmonary embolism. No focal airspace consolidation. 6 mm right upper lobe pulmonary nodule. White count 9.8. Hemoglobin 12.3. Platelets 405. D-dimer 2.57. Sodium 142. Potassium 4.4. Bicarb 20. BUN 19. Creatinine 1.82. Viral screen negative. He is seen today in consultation on the regular medical floor. He is currently resting comfortably in bed. Awake and alert in no acute distress. Denies any worsening shortness of breath, cough or congestion. His been initiated on DuoNeb inhalations, redness on taper, empiric antibiotics in the form of doxycycline. The patient is seen today 04/10/2023 in follow-up on the regular medical floor. He is currently sitting up in bed. Awake and alert in no acute distress. He is breathing quite a bit better today compared to yesterday. He is maintaining O2 saturations in the 90s on room air. Pro calcitonin 0.07. He is continued on DuoNeb inhalations, Symbicort, Singulair, theophylline and a prednisone taper. Antibiotics in the form of doxycycline. On today's evaluation of 12,000 with room air oxygen. He does not have an IV line. Is currently on a prednisone burst taper. He is also on Symbicort and theophylline and as DuoNeb updrafts to be used on an as-needed basis. No recent blood work from today. Objective - Vital Signs Vital signs: Vital Signs Temp 97.8 F 04/11/23 07:08 Pulse 86 04/11/23 12:22 Resp 16 04/11/23 07:08 BP 139/78 04/11/23 07:08 Pulse Ox 99 04/11/23 08:55 FiO2 Intake & Output 04/10/23 04/11/23 04/11/23 18:59 06:59 18:59 Intake Total 450 Balance 450 Intake: Oral 450 Other: Voiding Method Toilet # Voids 1 2 1 - Exam GENERAL EXAM: Alert, pleasant 83-year-old male, resting in bed, on room air, comfortable in no apparent distress. HEAD: Normocephalic. EYES: Normal reaction of pupils, equal size. NOSE: Clear with pink turbinates. THROAT: No erythema or exudates. NECK: No masses, no JVD. CHEST: No chest wall deformity. LUNGS: Equal air entry with no crackles, wheeze, rhonchi or dullness. CVS: S1 and S2 normal with no audible murmur, regular rhythm. ABDOMEN: No hepatosplenomegaly, normal bowel sounds, no guarding or rigidity. SPINE: No scoliosis or deformity SKIN: No rashes CENTRAL NERVOUS SYSTEM: No focal deficits, tone is normal in all 4 extremities. EXTREMITIES: There is no peripheral edema. No clubbing, no cyanosis. Periph eral pulses are intact. - Labs CBC & Chem 7: 04/08/23 19:27 04/08/23 19:27 Assessment and Plan Plan: Acute exacerbation of chronic obstructive pulmonary disease and no evidence of pneumonia. Pro-calcitonin 0.05 History of hypertension History of hyperlipidemia Coronary disease previous stent placement Hypothyroidism Dementia Gastric esophageal reflux disease Plan: Clinically stable No active respiratory issues Pro-calcitonin within normal limits Continue his home pulmonary medications Continue prednisone taper Cleared for discharge from the pulmonary standpoint
--- NOTE | 2023-04-11 13:34 | P.DS ---
Providers Date of admission: 04/09/23 00:39 Expected date of discharge: 04/11/23 Attending physician: Kevin Griffin Consults: 04/09/23 00:39 Consult Physician Routine Consulting Provider: Ceci Stafford Consult Reason/Comments: COPD Exacerbation Do you want consulting provider notified?: Yes Primary care physician: Kevin Griffin discharge summary Date of service 04/11/[address] Griffin. Patient seen today [id number] on the discharge. Patient stable general condition and vital sign stable, temperature 97.8 if oral heart rate 86 bpm regular, respiratory rate 16 nonlabored Blood pressure 139/78 with a mean 98 and oxygen saturation on room air 97%. Patient cleared by pulmonary Dr. Orozco. Follow-up in 3-[address] Ruelas and follow-up with Dr. Orozco in 1 week. Patient admitted on 04/09/2023 Discharge on 05/01/2023. Final diagnosis Discharge diagnoses #1 acute exacerbation of COPD #2 doffing of the bronchial tree with bronchitis. 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 Medically patient is stable for acute care admission to continue. Patient presentation to the ER: Patient seen and they are by Dr. King with the failure of treatment in the ER with the wheezing short of breath not resolving admitted to the hospital meanwhile he had computed tomography scan of the chest to rule out PE which was negative but found to have coughing of the bronchial tree with indicating bronchitis. Patient has dementia which is progressive and has difficulty for follow medical advice and follow medication despite that he given list of his medication from the office and intermittently he forget taken medication and become more symptomatic of other medical problem. In his last visit to the hospital and admission seen by the neurologist Dr. Rudy Bautista who started him on Seroquel however patient stated that he is febrile well and he had no agitation. Exam on discharge: The head was normocephalic and atraumatic pupil was equal reactive conjunctiva was pink sclera was nonicteric extraocular muscle movement was intact with redundant eyelid and facial asymmetry, oropharynx normal with natural teeth able to eat and swallow. Neck was supple no JVD no thyromegaly no lymphadenopathy trachea midline Chest has symmetrical with the history of exacerbation however currently on discharge he has clear lung no wheezes no rhonchi. Heart is regular sinus rhythm and no dysrhythmia he had history of coronary artery disease and he had 1 stent however he denied any chest pain. Abdomen is soft positive bowel sounds no organ enlargement. Extremities no edema and positive pulses. Neurologically no generalized weakness but he has significant problem with remembering and forgetfulness. Assessment stable general condition for discharge to dementia unit, or home with the observation 24 hour and helping him with his taken his medication. Plan discharge home today or tomorrow the [place] [facility], social media coordinator and embedded case manager consulted. Activity as tolerated with observation Diet regular cardiac diet. Patient Condition at Discharge: Fair Plan - Discharge Summary New Discharge Prescriptions: New predniSONE [Deltasone] 40 mg PO DAILY #3 tab Continue Montelukast [Singulair] 10 mg PO DAILY Metoprolol Tartrate 25 mg PO BID Theophylline 12 Hour [Silvio-Dur] 300 mg PO BID Levothyroxine Sodium [Synthroid] 50 mcg PO DAILY Atorvastatin [Lipitor] 80 mg PO HS Famotidine [Pepcid] 20 mg PO BID Losartan [Cozaar] 50 mg PO DAILY Ipratropium-Albuterol Nebulize [Duoneb 0.5 mg-3 mg/3 ml Soln] 3 ml INHALATION RT-QID #120 each Memantine [Namenda] 10 mg PO BID Donepezil [Aricept] 10 mg PO HS Aspirin 81 mg PO DAILY tab Budesonide-Formot 160-4.5 Mcg [Symbicort 160-4.5 Mcg Inhaler] 2 puff INHALATION RT-BID #1 each Albuterol Sulfate [Albuterol Sulfate Hfa] 2 puff INHALATION RT-QID PRN PRN Reason: Shortness Of Breath Discontinued QUEtiapine [SEROquel] 25 mg PO HS #30 tab Discharge Medication List Metoprolol Tartrate 25 mg PO BID 05/27/17 [History] Montelukast [Singulair] 10 mg PO DAILY 05/27/17 [History] Theophylline 12 Hour [Silvio-Dur] 300 mg PO BID 05/27/17 [History] Atorvastatin [Lipitor] 80 mg PO HS 11/22/19 [History] Famotidine [Pepcid] 20 mg PO BID 11/22/19 [History] Levothyroxine Sodium [Synthroid] 50 mcg PO DAILY 11/22/19 [History] Donepezil [Aricept] 10 mg PO HS 03/15/23 [History] Losartan [Cozaar] 50 mg PO DAILY 03/15/23 [History] Memantine [Namenda] 10 mg PO BID 03/15/23 [History] Aspirin 81 mg PO DAILY tab 03/19/23 [Rx] Budesonide-Formot 160-4.5 Mcg [Symbicort 160-4.5 Mcg Inhaler] 2 puff INHALATION RT-BID #1 each 03/19/23 [Rx] Ipratropium-Albuterol Nebulize [Duoneb 0.5 mg-3 mg/3 ml Soln] 3 ml INHALATION RT-QID #120 each 03/19/23 [Rx] Albuterol Sulfate [Albuterol Sulfate Hfa] 2 puff INHALATION RT-QID PRN 04/08/23 [History] predniSONE [Deltasone] 40 mg PO DAILY #3 tab 04/11/23 [Rx] Follow up Appointment(s)/Referral(s): Kevin Griffin MD [Primary Care Provider] - 1-2 days
== END 2023-04-11 16:18 | disposition home or self-care (01) | DRG 192 ==
LOC: EC 19:13 → 3SCARD 04-09 00:39 → 4SSUR 04-09 02:23
PROVIDERS: ADMIT Internal Medicine; ATTEND Internal Medicine
DX: J44.1 Chronic obstructive pulmonary disease with (acute) exacerbation (principal); T50.905A Adverse effect of unspecified drugs, medicaments and biological substances, initial encounter; Z20.822 Contact with and (suspected) exposure to COVID-19; I25.10 Atherosclerotic heart disease of native coronary artery without angina pectoris; J44.0 Chronic obstructive pulmonary disease with (acute) lower respiratory infection; J40 Bronchitis, not specified as acute or chronic; F03.90 Unspecified dementia, unspecified severity, without behavioral disturbance, psychotic disturbance, mood disturbance, and anxiety; I10 Essential (primary) hypertension; E03.9 Hypothyroidism, unspecified; K21.9 Gastro-esophageal reflux disease without esophagitis; Z79.890 Hormone replacement therapy; Z79.1 Long term (current) use of non-steroidal anti-inflammatories (NSAID); E78.5 Hyperlipidemia, unspecified; G51.0 Bell's palsy; Z79.51 Long term (current) use of inhaled steroids; Z79.52 Long term (current) use of systemic steroids; Z79.82 Long term (current) use of aspirin; Z79.899 Other long term (current) drug therapy; Z95.5 Presence of coronary angioplasty implant and graft; Z88.1 Allergy status to other antibiotic agents; X58.XXXA Exposure to other specified factors, initial encounter; Z98.42 Cataract extraction status, left eye; Z98.41 Cataract extraction status, right eye; Z96.1 Presence of intraocular lens; Z90.49 Acquired absence of other specified parts of digestive tract
CPT/HCPCS: 36415; 71045; 71275; 80053; 83605; 83735; 83880; 84145; 84484; 85025; 85379; 85610; 85730; 87636; 93005; 94640; 94760; 99285

== ENCOUNTER 2023-08-01 05:13 | Inpatient (IN) | payer MEDICARE ==
[2023-08-01] MEDS: SODIUM CHLORIDE 0.9% 1,000 ML IV STA (05:51)
[2023-08-01] MEDS: MORPHINE SULFATE 4 MG/ML SYRINGE IVP STA (05:51)
[2023-08-01] MEDS: ONDANSETRON 4 MG/2 ML VIAL IVP STA (05:51)
--- NOTE | 2023-08-01 05:53 | ED ---
Abdominal Pain HPI - General Chief Complaint: Abdominal Pain Stated Complaint: abd pain Time Seen by Provider: 08/01/23 05:22 Source: patient, RN notes reviewed, old records reviewed Mode of arrival: ambulatory Limitations: no limitations - History of Present Illness Initial Comments: This is a 83-year-old male to the ER for evaluation. Patient has significant abdominal pain abdominal pain that started soup per pelvis suprapubic and his lower abdomen and has been getting progressively worse throughout the day. Patient states he can urinate and has been able to urinate. The pain is severe mild nausea no vomiting no travel history or sick contacts no fevers positive bowel movements MD Complaint: abdominal pain -: hour(s) Location: suprapubic Radiation: suprapubic Migration to: suprapubic Severity: severe Severity scale (1-10): 9 Quality: stabbing Consistency: constant Improves With: nothing Worsens With: nothing Associated Symptoms: nausea Treatments Prior to Arrival: other - Related Data Home Medications Medication Instructions Recorded Confirmed Metoprolol Tartrate 25 mg PO BID 05/27/17 08/01/23 Montelukast [Singulair] 10 mg PO DAILY 05/27/17 08/01/23 Theophylline 12 Hour [Silvio-Dur] 300 mg PO BID 05/27/17 08/01/23 Atorvastatin [Lipitor] 80 mg PO HS 11/22/19 08/01/23 Famotidine [Pepcid] 20 mg PO BID 11/22/19 08/01/23 Levothyroxine Sodium [Synthroid] 50 mcg PO DAILY 11/22/19 08/01/23 Donepezil [Aricept] 10 mg PO HS 03/15/23 08/01/23 Losartan [Cozaar] 50 mg PO DAILY 03/15/23 08/01/23 Memantine [Namenda] 10 mg PO BID 03/15/23 08/01/23 Albuterol Sulfate [Albuterol 2 puff INHALATION RT-QID PRN 04/08/23 08/01/23 Sulfate Hfa] Aspirin EC [Ecotrin Low Dose] 81 mg PO DAILY 08/01/23 08/01/23 Triamcinolone 0.1% Cream [Kenalog 1 applicatio TOPICAL BID 08/01/23 08/01/23 0.1% Cream] Previous Rx's Medication Instructions Recorded Budesonide-Formot 160-4.5 Mcg 2 puff INHALATION RT-BID #1 each 03/19/23 [Symbicort 160-4.5 Mcg Inhaler] Ipratropium-Albuterol Nebulize 3 ml INHALATION RT-QID #120 each 03/19/23 [Duoneb 0.5 mg-3 mg/3 ml Soln] Allergies Allergy/AdvReac Type Severity Reaction Status Date / Time ciprofloxacin [From Cipro] Allergy Rash/Hives Verified 08/01/23 11:53 levofloxacin [From Levaquin] Allergy Unknown Verified 08/01/23 11:53 rofecoxib Allergy Unknown Verified 08/01/23 11:53 sulfamethoxazole Allergy Swelling Verified 08/01/23 11:53 [From Bactrim] trimethoprim [From Bactrim] Allergy Swelling Verified 08/01/23 11:53 fluconazole [From Diflucan] AdvReac DIzziness Verified 08/01/23 11:53 & Giddiness Review of Systems ROS Statement: Those systems with pertinent positive or pertinent negative responses have been documented in the HPI. ROS Other: All systems not noted in ROS Statement are negative. Past Medical History Past Medical History: Coronary Artery Disease (CAD), COPD, Dementia, GERD/Reflux, Hyperlipidemia, Hypertension Additional Past Medical History / Comment(s): dysphagia, states some memory loss History of Any Multi-Drug Resistant Organisms: None Reported Past Surgical History: Cholecystectomy, Heart Catheterization With Stent Additional Past Surgical History / Comment(s): corbin cataracts, EGD Past Anesthesia/Blood Transfusion Reactions: No Reported Reaction Date of Last Stent Placement:: unknown Past Psychological History: No Psychological Hx Reported Smoking Status: Never smoker Past Alcohol Use History: None Reported Past Drug Use History: None Reported - Past Family History Mother Family Medical History: Cancer Father Family Medical History: Cancer General Exam Limitations: no limitations General appearance: alert, in no apparent distress, anxious Head exam: Present: atraumatic, normocephalic, normal inspection Eye exam: Present: normal appearance, PERRL, EOMI. Absent: scleral icterus, conjunctival injection, periorbital swelling ENT exam: Present: normal exam, mucous membranes moist Neck exam: Present: normal inspection. Absent: tenderness, meningismus, lymphadenopathy Respiratory exam: Present: normal lung sounds bilaterally. Absent: respiratory distress, wheezes, rales, rhonchi, stridor Cardiovascular Exam: Present: regular rate, normal rhythm, normal heart sounds. Absent: systolic murmur, diastolic murmur, rubs, gallop, clicks GI/Abdominal exam: Present: soft, normal bowel sounds. Absent: distended, tenderness, guarding, rebound, rigid Extremities exam: Present: normal inspection, full ROM, normal capillary refill. Absent: tenderness, pedal edema, joint swelling, calf tenderness Back exam: Present: normal inspection Neurological exam: Present: alert, oriented X3, CN II-XII intact Psychiatric exam: Present: normal affect, normal mood Skin exam: Present: warm, dry, intact, normal color. Absent: rash Course Vital Signs 08/01/23 08/01/23 08/01/23 05:18 06:08 09:00 Temperature 98.2 F Pulse Rate 69 70 73 Pulse Rate [ Pulse Oximetery ] Respiratory 18 16 18 Rate Blood Pressure 163/48 151/72 161/67 Blood Pressure [Right Arm] O2 Sat by Pulse 100 96 98 Oximetry 08/01/23 08/01/23 08/01/23 09:11 10:00 11:00 Temperature Pulse Rate 72 74 76 Pulse Rate [ Pulse Oximetery ] Respiratory 18 18 16 Rate Blood Pressure 161/67 148/73 Blood Pressure [Right Arm] O2 Sat by Pulse 97 98 98 Oximetry 08/01/23 08/01/23 08/01/23 12:00 13:00 14:00 Temperature 97.6 F Pulse Rate 70 68 62 Pulse Rate [ 70 Pulse Oximetery ] Respiratory 18 16 17 Rate Blood Pressure 135/68 128/62 132/74 Blood Pressure 136/69 [Right Arm] O2 Sat by Pulse 98 98 100 Oximetry 08/01/23 08/01/23 08/01/23 15:00 15:17 15:28 Temperature Pulse Rate 64 64 66 Pulse Rate [ Pulse Oximetery ] Respiratory 16 Rate Blood Pressure 122/70 Blood Pressure [Right Arm] O2 Sat by Pulse 99 Oximetry 08/01/23 16:19 Temperature Pulse Rate 78 Pulse Rate [ Pulse Oximetery ] Respiratory 18 Rate Blood Pressure 144/76 Blood Pressure [Right Arm] O2 Sat by Pulse 98 Oximetry - Reevaluation(s) Reevaluation #1: 08/01/23 05:52 Medical records reviewed Reevaluation #2: 08/01/23 05:52 Patient symptoms improved Reevaluation #3: 08/01/23 05:52 Patient informed of results questions answered Reevaluation #4: Was pt. sent in by a medical professional or institution (MONIQUE Henson, OPERATIONAL INTELLIGENCE ANALYST, urgent care, hospital, or fci...) When possible be specific @ -no Did you speak to anyone other than the patient for history (EMS, parent, family, police, friend...)? What history was obtained from this source @ -no Did you review nursing and triage notes (agree or disagree)? Why? @ -agree Are old charts reviewed (outside hosp., previous admission, EMS record, old EKG, old radiological studies, urgent care reports/EKG's, fci records)? Report findings @ -yes Differential Diagnosis (chest pain, altered mental status, abdominal pain women, abdominal pain men, vaginal bleeding, weakness, fever, dyspnea, syncope, headache, dizziness, GI bleed, back pain, seizure, CVA, palpatations, mental health, musculoskeletal)? @ -prior EKG interpreted by me (3pts min.). @ -no X-rays interpreted by me (1pt min.). @ -no CT interpreted by me (1pt min.). @ -yes negative for acute disease U/S interpreted by me (1pt. min.). @ -no What testing was considered but not performed or refused? (CT, X-rays, U/S, la bs)? Why? @ -none What meds were considered but not given or refused? Why? @ -none Did you discuss the management of the patient with other professionals (professionals i.e. MONIQUE Henson, OPERATIONAL INTELLIGENCE ANALYST, lab, RT, psych nurse, social media marketing analyst, federal agent, teacher, court security officer, test case developer)? Give summary @ -no Was smoking cessation discussed for >3mins.? @ -no Was critical care preformed (if so, how long)? @ -no Were there social determinants of health that impacted care today? How? (Homelessness, low income, unemployed, alcoholism, drug addiction, transportation, low edu. Level, literacy, decrease access to med. care, retirement, rehab)? @ -none Was there de-escalation of care discussed even if they declined (Discuss DNR or withdrawal of care, Hospice)? DNR status @ -no What co-morbidities impacted this encounter? (DM, HTN, Smoking, COPD, CAD, Cancer, CVA, ARF, Chemo, Hep., AIDS, mental health diagnosis, sleep apnea, morbid obesity)? @ -none Was patient admitted / discharged? Hospital course, mention meds given and route, prescriptions, significant lab abnormalities, going to OR and other pertinent info. @ - 83 admitted to the ER for evaluation of positive small bowel obstruction with severe abdominal pain. Patient does have diverticulitis placed on antibiotics and will admit for further evaluation management Admitted Undiagnosed new problem with uncertain prognosis? @ -no Drug Therapy requiring intensive monitoring for toxicity (Heparin, Nitro, Insulin, Cardizem)? @ -no Were any procedures done? @ -no Diagnosis/symptom? @ -Small bowel obstruction with diverticulitis and abdominal pain Acute, or Chronic, or Acute on Chronic? @ -Acute Uncomplicated (without systemic symptoms) or Complicated (systemic symptoms)? @ -Complicated Side effects of treatment? @ -no Exacerbation, Progression, or Severe Exacerbation? @ -exacerbation Poses a threat to life or bodily function? How? (Chest pain, [place], [place], pneumonia, PE, COPD, DKA, ARF, appy, cholecystitis, CVA, Diverticulitis, Homicidal, Suicidal, threat to staff... and all critical care pts) @ -yes significant extremes of age Reevaluation #5: Differential Abdominal Pain Men: Appendicitis, cholecystitis, diverticulosis, ischemic bowel, pancreatitis, hepatitis, UTI, gastroenteritis, AAA, incarcerated hernia, bowel obstruction, constipation, inflammatory bowel, hepatitis, peptic ulcer disease, splenic in farction, perforated viscus, testicular torsion, this is not meant to be an all- inclusive list - Consultations Consultation #1: spoke w Dr Griffin who agrees to admit this patient Medical Decision Making - Medical Decision Making 83 admitted to the ER for evaluation of positive small bowel obstruction with severe abdominal pain. Patient does have diverticulitis placed on antibiotics and will admit for further evaluation management - Lab Data Result diagrams: 08/10/23 09:28 08/10/23 09:28 Lab Results 08/01/23 08/01/23 08/01/23 Range/Units 05:40 05:40 05:40 WBC 11.3 H (3.8-10.6) k/uL RBC 4.08 L (4.30-5.90) m/uL Hgb 12.2 L (13.0-17.5) gm/dL Hct 36.1 L (39.0-53.0) % MCV 88.5 (80.0-100.0) fL MCH 30.0 (25.0-35.0) pg MCHC 33.9 (31.0-37.0) g/dL RDW 14.4 (11.5-15.5) % Plt Count 393 (150-450) k/uL MPV 6.9 Neutrophils % 76 % Lymphocytes % 14 % Monocytes % 5 % Eosinophils % 3 % Basophils % 1 % Neutrophils # 8.5 H (1.3-7.7) k/uL Lymphocytes # 1.6 (1.0-4.8) k/uL Monocytes # 0.6 (0-1.0) k/uL Eosinophils # 0.4 (0-0.7) k/uL Basophils # 0.1 (0-0.2) k/uL PT 10.4 (10.0-12.5) sec INR 0.9 (<1.2) APTT 24.1 (22.0-30.0) sec Sodium 142 (137-145) mmol/L Potassium 4.1 (3.5-5.1) mmol/L Chloride 109 H (98-107) mmol/L Carbon Dioxide 21 L (22-30) mmol/L Anion Gap 12 mmol/L BUN 29 H (9-20) mg/dL Creatinine 1.59 H (0.66-1.25) mg/dL Est GFR (CKD-EPI)AfAm 45 (>60 ml/min/1.73 sqM) Est GFR (CKD-EPI)NonAf 39 (>60 ml/min/1.73 sqM) Glucose 91 (74-99) mg/dL Lactic Ac Sepsis Rflx Plasma Lactic Acid Lawson (0.7-2.0) mmol/L Calcium 9.4 (8.4-10.2) mg/dL Total Bilirubin 0.4 (0.2-1.3) mg/dL AST 37 (17-59) U/L ALT 25 (4-49) U/L Alkaline Phosphatase 113 (38-126) U/L Total Protein 7.0 (6.3-8.2) g/dL Albumin 4.2 (3.5-5.0) g/dL Amylase 111 H (30-110) U/L Lipase 352 H (23-300) U/L 08/01/23 08/01/23 Range/Units 05:40 06:11 WBC (3.8-10.6) k/uL RBC (4.30-5.90) m/uL Hgb (13.0-17.5) gm/dL Hct (39.0-53.0) % MCV (80.0-100.0) fL MCH (25.0-35.0) pg MCHC (31.0-37.0) g/dL RDW (11.5-15.5) % Plt Count (150-450) k/uL MPV Neutrophils % % Lymphocytes % % Monocytes % % Eosinophils % % Basophils % % Neutrophils # (1.3-7.7) k/uL Lymphocytes # (1.0-4.8) k/uL Monocytes # (0-1.0) k/uL Eosinophils # (0-0.7) k/uL Basophils # (0-0.2) k/uL PT (10.0-12.5) sec INR (<1.2) APTT (22.0-30.0) sec Sodium (137-145) mmol/L Potassium (3.5-5.1) mmol/L Chloride (98-107) mmol/L Carbon Dioxide (22-30) mmol/L Anion Gap mmol/L BUN (9-20) mg/dL Creatinine (0.66-1.25) mg/dL Est GFR (CKD-EPI)AfAm (>60 ml/min/1.73 sqM) Est GFR (CKD-EPI)NonAf (>60 ml/min/1.73 sqM) Glucose (74-99) mg/dL Lactic Ac Sepsis Rflx Y Plasma Lactic Acid Lawson 2.2 H* (0.7-2.0) mmol/L Calcium (8.4-10.2) mg/dL Total Bilirubin (0.2-1.3) mg/dL AST (17-59) U/L ALT (4-49) U/L Alkaline Phosphatase (38-126) U/L Total Protein (6.3-8.2) g/dL Albumin (3.5-5.0) g/dL Amylase (30-110) U/L Lipase (23-300) U/L - Radiology Data Radiology results: report reviewed (CT abdomen pelvis is positive for diverti culitis and small bowel obstruction), image reviewed Disposition Clinical Impression: Abdominal pain, Partial small bowel obstruction, Acute vomiting, Abdominal colic, Small bowel obstruction Disposition: ADMITTED IP TO THIS HOSP Condition: Fair Is patient prescribed a controlled substance at d/c from ED?: No Time of Disposition: 07:00
[2023-08-01 05:55] LABS: Basophils # (A) 0.1 k/uL (0-0.2); Basophils % (A) 1 %; Eosinophils # (A) 0.4 k/uL (0-0.7); Eosinophils % (A) 3 %; HCT 36.1 % (39.0-53.0); HGB 12.2 gm/dL (13.0-17.5); Lymphocytes # (A) 1.6 k/uL (1.0-4.8); Lymphocytes % (A) 14 %; MCHC 33.9 g/dL (31.0-37.0); MCV 88.5 fL (80.0-100.0); Mean Platelet Volume 6.9; Monocytes # (A) 0.6 k/uL (0-1.0); Monocytes % (A) 5 %; Neutrophils # (A) 8.5 k/uL (1.3-7.7); Neutrophils % (A) 76 %; Platelet Count 393 k/uL (150-450); RBC 4.08 m/uL (4.30-5.90); RDW 14.4 % (11.5-15.5); WBC 11.3 k/uL (3.8-10.6)
[2023-08-01 06:05] LABS: ALT 25 U/L (4-49); AST 37 U/L (17-59); African American GFR (CKD) 45 (>60 ml/min/1.73 sqM); Albumin 4.2 g/dL (3.5-5.0); Alkaline Phosphatase 113 U/L (38-126); Amylase 111 U/L (30-110); Anion Gap 12 mmol/L; Blood Urea Nitrogen 29 mg/dL (9-20); Calcium 9.4 mg/dL (8.4-10.2); Carbon Dioxide 21 mmol/L (22-30); Chloride 109 mmol/L (98-107); Glucose 91 mg/dL (74-99); Lipase 352 U/L (23-300); Non-African American GFR(CKD) 39 (>60 ml/min/1.73 sqM); Potassium 4.1 mmol/L (3.5-5.1); Sodium 142 mmol/L (137-145); Total Bilirubin 0.4 mg/dL (0.2-1.3)
[2023-08-01 06:10] LABS: INR 0.9 (<1.2); Partial Thromboplastin Time 24.1 sec (22.0-30.0); Prothrombin Time 10.4 sec (10.0-12.5)
--- NOTE | 2023-08-01 06:39 | CT ---
EXAMINATION TYPE: CT abdomen pelvis wo con DATE OF EXAM: 08/01/2023 HISTORY: abd pain CT DLP: 444.2 mGycm. Automated Exposure Control for Dose Reduction was Utilized. TECHNIQUE: CT scan of the abdomen and pelvis is performed without oral or IV contrast. COMPARISON: Prior CT November 22, 2019 FINDINGS: Within the limitations of a non-contrast study, the following observations are made. LUNG BASES: Bilateral gynecomastia redemonstrated. Calcification level of the mitral and aortic valve again seen. Coronary artery calcification is noted. LIVER/GB: Punctate calcifications throughout the liver are redemonstrated. Cholecystectomy clips are redemonstrated. PANCREAS: No significant abnormality is seen. SPLEEN: More numerous punctate calcifications throughout the spleen. Liver and spleen findings are co nsistent with product of old granulomatous disease. ADRENALS: No significant abnormality is seen. KIDNEYS: Cortical thinning in both kidneys. No hydronephrosis seen bilaterally. BOWEL: Slightly suboptimal evaluation of bowel without enteric contrast. No suspicious dilatation of stomach or duodenal sweep. No suspicious dilatation of jejunal loops in the left upper to mid abdomen . There are more prominent fluid-filled small bowel loops in the lower abdomen and pelvis. There is v asa engorgement in the left lower quadrant. Terminal ileum is nondilated. Fecal material is seen in n ondistended colon. Diverticula throughout the colon greatest in the sigmoid colon are present. Mild f at stranding in the sigmoid colon is identified. Small bowel loops slightly dilated up to 3.2 cm. No free air or mesenteric air. GENITAL ORGANS: There are 3 gold therapy seeds scattered throughout normal size prostate. LYMPH NODES: No greater than 1cm abdominal or pelvic lymph nodes are appreciated. OSSEOUS STRUCTURES: Moderate to severe disc space narrowing at L4-L5 level. Posterior disc herniation effaces the anterior thecal sac at L3-L4 level. OTHER: No significant additional abnormality is seen. IMPRESSION: CT findings suggest a partial mid to distal small bowel obstruction. Consider underlying adhesions. Adjacent uncomplicated acute diverticulitis in the sigmoid colon cannot be excluded.
[2023-08-01] MEDS: SODIUM CHLORIDE 0.9% 500 ML 500 ML IV STA (06:42)
[2023-08-01] MEDS ORDERED: NALOXONE 0.4 MG/ML 1 ML VIAL IV PRN (06:57)
[2023-08-01] MEDS: MORPHINE SULFATE 4 MG/ML SYRINGE IV PRN (08:57)
[2023-08-01] MEDS: AMPICILLIN-SULBACTAM 3 GM in SODIUM CHLORIDE 0.9% 100 ML IVPB STA (09:01)
[2023-08-01] MEDS: SODIUM CHLORIDE 0.9% 1,000 ML IV SCH (09:02)
[2023-08-01] MEDS: PANTOPRAZOLE 40 MG/10 ML VIAL IV SCH (09:03)
[2023-08-01] MEDS ORDERED: ALBUTEROL HFA INHALER INHALATION PRN (09:16)
--- NOTE | 2023-08-01 10:24 | P.HPIM ---
History of Present Illness H&P Date: 08/01/23 Chief Complaint: Lower abdominal pain started 36 hours ago with no BM for the last 2 to 3 da History and physical Dictation by Dr. 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 History of present illness Patient drove himself from home because of the severe abdominal pain in the lower abdomen and progressed to the mid abdomen could not tolerate, He had no bowel movement for 2 to 3 days and he fell to that he has to come to the emergency room because of the severe pain Patient had a CT scan of the abdomen in the ER with the conclusion of distal small bowel obstruction. And diverticular colitis uncomplicated. Past medical history: Patient with a history of multiple medical problem he has been followed with multiple physician Dr. Schreiber for pulmonary with the underlying COPD Used to be seen by Dr. Lozano for gastroenterology, Dr. Purvis for aches and pains Dr. Haas for ophthalmology, Dr. Dunne cardiology, Dr. Dillon and other neurologist. Medical problem associated with COPD Hypothyroidism Cognitive function impairment with early dementia and forgetfulness GERD disease Drooping of his left eye. History of diverticulum within terminal ileum., Mild presby esophagus Percutaneous transluminal coronary angioplasty Dr. APOLLO Bailey with a history of 70 to 80% left anterior descending eccentric lesion on 2007. Otherwise patient had no symptoms. Chronic kidney disease stage III No history of diabetes mellitus History of hypertension controlled essential. Coronary artery disease atherosclerotic artery disease stable No history of blood in the stools Mild anemia of chronic disease. Previous chest x-ray indicating COPD., Asthma. Allergy ciprofloxacin Social history , has 2 daughters. Lives alone with the help for daily living at home with the comfort and [address]. Review of system Neuropsychiatry has significant history of forgetfulness and he had help at home no history of CVA however he had left facial drooping was unclear from previous neurologist is due to 7th nerve palsy or not Cardiovascular no recent complain of chest pain or palpitation Respiratory currently has been not wheezing and having comfortable breathing no shortness of breath Neurologically able to ambulate moving 4 extremities and he drove himself to the hospital Endocrine has thyroid dysfunction and hyperlipidemia. Musculoskeletal: Generalized arthritis with the history of LS spine arthritis and discogenic disease Rest of the [address] [place] was noncontributory Physical exam: Patient was conscious alert oriented x 3 but forgetful and he remembered that he came to the hospital to roving himself.. As early Aniket he stated about 4 AM because of the severe pain. Head was normocephalic atraumatic he had chronic left facial abnormalities as well as left eyelid redundant has been seen many ophthalmology but no effective treatment rendered to him Oropharynx he had natural teeth able to swallow with no choking. Neck was supple no JVD no thyromegaly no lymphadenopathy. Chest he has mild increased anteroposterior diameter normal breath sounds and no wheezes no rhonchi's on this exam Heart regular sinus rhythm no dysrhythmia PMI in the fifth intercostal space mildly outside midclavicular line normal S1-S2 no gallop., Last carotid testing was done in 03/16/2023 and was negative no hemodynamic significant stenosis Patient seen by Dr. Tello Last ultrasound of the kidney due to his chronic kidney disease was right kidney 9.8 cm multiplied by 5.5 cm bulked to light by 5.3 cm. Left kidney 10.2 cm multiplied by 5.9 cm multiplied by 5.5 cm the conclusion he had mild cortical thinning bilaterally consistent with history of chronic kidney disease. In the CT scan he have still the previous treatment in the prostate with history of prostate cancer in the past which is rods goldenrod. Last echocardiogram was done on 09/24/2011 indicating aortic regurgitation and trace mitral regurgitation with the ejection fraction 60%. On the abdomen exam tenderness in the abdominal mid abdomen and the lower abdomen consistent with the small bowel obstruction no bowel sound. Extremities no edema and positive pulses Neurologically no lateralizing sign. Assessment: 1. Small bowel obstruction 2. Underlying history of asthma and COPD currently stable 3. History of hypothyroidism #4 history of coronary artery disease atherosclerotic artery disease was seen in the past by Dr. APOLLO Bailey 4. Cognitive function impairment and he forgot his appointment and he had no way to remember and his daughter is no and he lives alone. Plan: Patient admitted to the hospital consultation with the Dr. Pinzon who seen him before and and to evaluate and treat Medications reconciled NG NG tube was not placed patient has no nausea and vomiting. Patient his IV to support. Will obtain EKG. And a chest x-ray. If was not done Past Medical History Past Medical History: Coronary Artery Disease (CAD), COPD, Dementia, GERD/Reflux, Hyperlipidemia, Hypertension Additional Past Medical History / Comment(s): dysphagia, states some memory loss History of Any Multi-Drug Resistant Organisms: None Reported Past Surgical History: Cholecystectomy, Heart Catheterization With Stent Additional Past Surgical History / Comment(s): corbin cataracts, EGD Past Anesthesia/Blood Transfusion Reactions: No Reported Reaction Date of Last Stent Placement:: unknown Past Psychological History: No Psychological Hx Reported Smoking Status: Never smoker Past Alcohol Use History: None Reported Past Drug Use History: None Reported - Past Family History Mother Family Medical History: Cancer Father Family Medical History: Cancer Medications and Allergies Home Medications Medication Instructions Recorded Confirmed Type Metoprolol Tartrate 25 mg PO BID 05/27/17 04/08/23 History Montelukast [Singulair] 10 mg PO DAILY 05/27/17 04/08/23 History Theophylline 12 Hour [Silvio-Dur] 300 mg PO BID 05/27/17 04/08/23 History Atorvastatin [Lipitor] 80 mg PO HS 11/22/19 04/08/23 History Famotidine [Pepcid] 20 mg PO BID 11/22/19 04/08/23 History Levothyroxine Sodium [Synthroid] 50 mcg PO DAILY 11/22/19 04/08/23 History Donepezil [Aricept] 10 mg PO HS 03/15/23 04/08/23 History Losartan [Cozaar] 50 mg PO DAILY 03/15/23 04/08/23 History Memantine [Namenda] 10 mg PO BID 03/15/23 04/08/23 History Aspirin 81 mg PO DAILY tab 03/19/23 04/08/23 Rx Budesonide-Formot 160-4.5 Mcg 2 puff INHALATION RT-BID #1 each 03/19/23 04/08/23 Rx [Symbicort 160-4.5 Mcg Inhaler] Ipratropium-Albuterol Nebulize 3 ml INHALATION RT-QID #120 each 03/19/23 04/08/23 Rx [Duoneb 0.5 mg-3 mg/3 ml Soln] Albuterol Sulfate [Albuterol 2 puff INHALATION RT-QID PRN 04/08/23 04/08/23 History Sulfate Hfa] predniSONE [Deltasone] 40 mg PO DAILY #3 tab 04/11/23 Rx Allergies Allergy/AdvReac Type Severity Reaction Status Date / Time ciprofloxacin [From Cipro] Allergy Rash/Hives Verified 08/01/23 05:20 Physical Exam Vitals: Vital Signs Temp Pulse Resp BP Pulse Ox 08/01/23 09:00 73 18 161/67 98 08/01/23 06:08 70 16 151/72 96 08/01/23 05:18 98.2 F 69 18 163/48 100 Intake and Output 07/31/23 08/01/23 08/01/23 22:59 06:59 14:59 Other: Weight 77.111 kg Results CBC & Chem 7: 08/01/23 05:40 08/01/23 05:40 Labs: Abnormal Lab Results - Last 24 Hours (Table) 08/01/23 08/01/23 08/01/23 Range/Units 05:40 05:40 05:40 WBC 11.3 H (3.8-10.6) k/uL RBC 4.08 L (4.30-5.90) m/uL Hgb 12.2 L (13.0-17.5) gm/dL Hct 36.1 L (39.0-53.0) % Neutrophils # 8.5 H (1.3-7.7) k/uL Chloride 109 H (98-107) mmol/L Carbon Dioxide 21 L (22-30) mmol/L BUN 29 H (9-20) mg/dL Creatinine 1.59 H (0.66-1.25) mg/dL Plasma Lactic Acid Lawson 2.2 H* (0.7-2.0) mmol/L Amylase 111 H (30-110) U/L Lipase 352 H (23-300) U/L
[2023-08-01] MEDS: AMPICILLIN-SULBACTAM 3 GM in SODIUM CHLORIDE 0.9% 100 ML IVPB SCH ×2 (11:59→15:45)
--- NOTE | 2023-08-01 13:21 | P.GSCN ---
History of Present Illness Consult date: 08/01/23 History of present illness: CHIEF COMPLAINT: Abdominal pain HISTORY OF PRESENT ILLNESS: This is a 83-year-old male who presented with abdominal pain that started yesterday. Patient complains of lower left-sided abdominal pain that radiated up the side of the abdomen. He reports that he is feeling bloated. He denies any nausea or vomiting. Last bowel movement and flatus was yesterday. Patient has had prior history of bowel obstruction managed conservatively. Past surgical history does include cholecystectomy. Patient does have a history of dementia. Last colonoscopy was about [address] scan abdomen and pelvis reported partial mid to distal small bowel obstruction. Consider underlying adhesions. Adjacent uncomplicated acute diverticulitis of the sigmoid colon cannot be excluded. PAST MEDICAL HISTORY: See list. PAST SURGICAL HISTORY: See list. MEDICATIONS: See list. ALLERGIES: See list. SOCIAL HISTORY: No illicit drug use. REVIEW OF SYSTEMS: CONSTITUTIONAL: Denies fever or chills. HEENT: Denies blurred vision, vision changes, or eye pain. Denies hemoptysis ENDOCRINE: Denies heat or cold intolerance. CARDIOVASCULAR: Denies chest pain or pressure. RESPIRATORY: No shortness of breath. GASTROINTESTINAL: Please refer to HPI otherwise unremarkable NEURO: Denies history of seizures. PSYCH: No depression or suicidal ideation HEMATOLOGIC: Denies bleeding disorders. LYMPHATIC: The patient denies any lumps and bumps around the neck. GENITOURINARY: Denies any blood in urine or increased urinary frequency. MUSCULOSKELETAL: Denies myalgias. Denies joint swelling. Denies decreased range of motion beyond patients baseline. SKIN: Denies pruitis. Denies rash. PHYSICAL EXAM: VITAL SIGNS: Reviewed GENERAL: Well-developed in no acute distress. HEENT: No sclera icterus. Extraocular movements grossly intact. Moist buccal mucosa. Head is atraumatic, normocephalic. Hears conversational speech. No nasal drainage. NECK: Supple without lymphadenopathy. CHEST: Non-labored respirations and equal bilateral excursions. CARDIOVASCULAR: Palpable 2+ radial pulses. ABDOMEN: Soft. Mildly distended. Diffuse tenderness. More tenderness noted with palpation of the left side of the abdomen MUSCULOSKELETAL: No clubbing or cyanosis. NEUROLOGIC: No focal or lateralizing signs. Cranial nerves II through XII grossly intact. PSYCH: Awake and alert. Answering some questions appropriately. SKIN: Well perfused. Good skin turgor. LABORATORY DATA: WBC 11.3 Hgb 12.2 platelets 393 Sodium 142 potassium 4.1 creatinine 1.59 Lactic acid 2.2 down to 1.4 Lipase 352 amylase 111 IMAGING: CT scan findings as stated above ASSESSMENT: 1. Left-sided abdominal pain 2. Possible partial small bowel obstruction noted on CT scan 3. Possible diverticulitis not excluded noted on CT scan 4. Elevated lactic acid level on admission improved with fluids PLAN: -Start clear liquid diet -Continue to monitor -Continue antibiotics -Continue IV fluids Physician Receptionist Secretary note has been reviewed by physician. Signing provider agrees with the documented findings, assessment, and plan of care. Past Medical History Past Medical History: Coronary Artery Disease (CAD), COPD, Dementia, GERD/R eflux, Hyperlipidemia, Hypertension Additional Past Medical History / Comment(s): dysphagia, states some memory loss History of Any Multi-Drug Resistant Organisms: None Reported Past Surgical History: Cholecystectomy, Heart Catheterization With Stent Additional Past Surgical History / Comment(s): corbin cataracts, EGD Past Anesthesia/Blood Transfusion Reactions: No Reported Reaction Date of Last Stent Placement:: unknown Past Psychological History: No Psychological Hx Reported Smoking Status: Never smoker Past Alcohol Use History: None Reported Past Drug Use History: None Reported - Past Family History Mother Family Medical History: Cancer Father Family Medical History: Cancer Medications and Allergies Home Medications Medication Instructions Recorded Confirmed Type Metoprolol Tartrate 25 mg PO BID 05/27/17 08/01/23 History Montelukast [Singulair] 10 mg PO DAILY 05/27/17 08/01/23 History Theophylline 12 Hour [Silvio-Dur] 300 mg PO BID 05/27/17 08/01/23 History Atorvastatin [Lipitor] 80 mg PO HS 11/22/19 08/01/23 History Famotidine [Pepcid] 20 mg PO BID 11/22/19 08/01/23 History Levothyroxine Sodium [Synthroid] 50 mcg PO DAILY 11/22/19 08/01/23 History Donepezil [Aricept] 10 mg PO HS 03/15/23 08/01/23 History Losartan [Cozaar] 50 mg PO DAILY 03/15/23 08/01/23 History Memantine [Namenda] 10 mg PO BID 03/15/23 08/01/23 History Budesonide-Formot 160-4.5 Mcg 2 puff INHALATION RT-BID #1 each 03/19/23 08/01/23 Rx [Symbicort 160-4.5 Mcg Inhaler] Ipratropium-Albuterol Nebulize 3 ml INHALATION RT-QID #120 each 03/19/23 08/01/23 Rx [Duoneb 0.5 mg-3 mg/3 ml Soln] Albuterol Sulfate [Albuterol 2 puff INHALATION RT-QID PRN 04/08/23 08/01/23 History Sulfate Hfa] Aspirin EC [Ecotrin Low Dose] 81 mg PO DAILY 08/01/23 08/01/23 History Triamcinolone 0.1% Cream [Kenalog 1 applicatio TOPICAL BID 08/01/23 08/01/23 History 0.1% Cream] Allergies Allergy/AdvReac Type Severity Reaction Status Date / Time ciprofloxacin [From Cipro] Allergy Rash/Hives Verified 08/01/23 11:53 levofloxacin [From Levaquin] Allergy Unknown Verified 08/01/23 11:53 rofecoxib Allergy Unknown Verified 08/01/23 11:53 sulfamethoxazole Allergy Swelling Verified 08/01/23 11:53 [From Bactrim] trimethoprim [From Bactrim] Allergy Swelling Verified 08/01/23 11:53 fluconazole [From Diflucan] AdvReac DIzziness Verified 08/01/23 11:53 & Giddiness Surgical - Exam Vital Signs Temp Pulse Resp BP Pulse Ox 98.2 F 69 18 163/48 100 08/01/23 05:18 08/01/23 05:18 08/01/23 05:18 08/01/23 05:18 08/01/23 05:18 Results - Labs 08/01/23 05:40 08/01/23 05:40 Abnormal Lab Results - Last 24 Hours (Table) 08/01/23 08/01/23 08/01/23 Range/Units 05:40 05:40 05:40 WBC 11.3 H (3.8-10.6) k/uL RBC 4.08 L (4.30-5.90) m/uL Hgb 12.2 L (13.0-17.5) gm/dL Hct 36.1 L (39.0-53.0) % Neutrophils # 8.5 H (1.3-7.7) k/uL Chloride 109 H (98-107) mmol/L Carbon Dioxide 21 L (22-30) mmol/L BUN 29 H (9-20) mg/dL Creatinine 1.59 H (0.66-1.25) mg/dL Plasma Lactic Acid Lawson 2.2 H* (0.7-2.0) mmol/L Amylase 111 H (30-110) U/L Lipase 352 H (23-300) U/L Diabetes panel 08/01/23 Range/Units 05:40 Sodium 142 (137-145) mmol/L Potassium 4.1 (3.5-5.1) mmol/L Chloride 109 H (98-107) mmol/L Carbon Dioxide 21 L (22-30) mmol/L BUN 29 H (9-20) mg/dL Creatinine 1.59 H (0.66-1.25) mg/dL Glucose 91 (74-99) mg/dL Calcium 9.4 (8.4-10.2) mg/dL AST 37 (17-59) U/L ALT 25 (4-49) U/L Alkaline Phosphatase 113 (38-126) U/L Total Protein 7.0 (6.3-8.2) g/dL Albumin 4.2 (3.5-5.0) g/dL Calcium panel 08/01/23 Range/Units 05:40 Calcium 9.4 (8.4-10.2) mg/dL Albumin 4.2 (3.5-5.0) g/dL Pituitary panel 08/01/23 Range/Units 05:40 Sodium 142 (137-145) mmol/L Potassium 4.1 (3.5-5.1) mmol/L Chloride 109 H (98-107) mmol/L Carbon Dioxide 21 L (22-30) mmol/L BUN 29 H (9-20) mg/dL Creatinine 1.59 H (0.66-1.25) mg/dL Glucose 91 (74-99) mg/dL Calcium 9.4 (8.4-10.2) mg/dL Adrenal panel 08/01/23 Range/Units 05:40 Sodium 142 (137-145) mmol/L Potassium 4.1 (3.5-5.1) mmol/L Chloride 109 H (98-107) mmol/L Carbon Dioxide 21 L (22-30) mmol/L BUN 29 H (9-20) mg/dL Creatinine 1.59 H (0.66-1.25) mg/dL Glucose 91 (74-99) mg/dL Calcium 9.4 (8.4-10.2) mg/dL Total Bilirubin 0.4 (0.2-1.3) mg/dL AST 37 (17-59) U/L ALT 25 (4-49) U/L Alkaline Phosphatase 113 (38-126) U/L Total Protein 7.0 (6.3-8.2) g/dL Albumin 4.2 (3.5-5.0) g/dL
--- NOTE | 2023-08-01 14:04 | XR ---
EXAMINATION TYPE: XR chest 2V DATE OF EXAM: 08/01/2023 1:18 PM CLINICAL INDICATION:Male, 83 years old with history of COPD, asthma, atelectasis; PHH COMPARISON: Chest radiographs from 04/08/2023 TECHNIQUE: XR chest 2V Frontal and lateral views of the chest. FINDINGS: Lungs/Pleura: There is no evidence of pleural effusion, focal consolidation, or pneumothorax. Pulmonary vascularity: Unremarkable. Heart/mediastinum: Cardiomediastinal silhouette is unremarkable. Musculoskeletal: No acute osseous pathology. IMPRESSION: No acute cardiopulmonary disease/process.
[2023-08-01] MEDS: IPRATROPIUM-ALBUTEROL 3 ML NEB INHALATION SCH (15:00)
[2023-08-01] MEDS: SYMBICORT 160-4.5 MCG INHALER INHALATION SCH (18:18)
[2023-08-01] MEDS: THEOPHYLLINE 24 HOUR 200 MG CAP.ER.24H PO SCH (20:54)
[2023-08-01] MEDS: METOPROLOL TARTRATE 25 MG TAB PO SCH (20:54)
[2023-08-02] MEDS: LEVOTHYROXINE 50 MCG TAB PO SCH (05:42)
[2023-08-02 11:38] LABS: ALT 16 U/L (10-49); AST 22 U/L (14-35); Albumin 3.4 g/dL (3.8-4.9); Alkaline Phosphatase 96 U/L (41-126); BUN/Creat Ratio 14.57 Ratio (12.00-20.00); Blood Urea Nitrogen 20.4 mg/dL (9.0-27.0); Calcium 8.7 mg/dL (8.7-10.3); Carbon Dioxide 24.2 mmol/L (21.6-31.8); Chloride 107 mmol/L (96-109); Glucose 99 mg/dL (70-110); Magnesium 1.9 mg/dL (1.5-2.4); Phosphorus 3.9 mg/dL (2.4-5.1); Potassium 4.7 mmol/L (3.5-5.5); Sodium 141 mmol/L (135-145); Total Bilirubin 0.3 mg/dL (0.3-1.2); Total Protein 5.4 g/dL (6.2-8.2)
[2023-08-02 11:40] LABS: African American GFR (CKD) 61 (>60 ml/min/1.73 sqM); Anion Gap 9 mmol/L; Blood Urea Nitrogen 22 mg/dL (9-20); Calcium 8.8 mg/dL (8.4-10.2); Carbon Dioxide 21 mmol/L (22-30); Chloride 109 mmol/L (98-107); Glucose 92 mg/dL (74-99); Lipase 166 U/L (23-300); Non-African American GFR(CKD) 53 (>60 ml/min/1.73 sqM); Potassium 4.2 mmol/L (3.5-5.1); Sodium 139 mmol/L (137-145)
[2023-08-02 12:18] LABS: Basophils # (A) 0.05 X 10*3/uL (0.00-0.10); Basophils % (A) 0.5 %; Eosinophils # (A) 0.27 X 10*3/uL (0.04-0.35); Eosinophils % (A) 2.8 %; HCT 33.9 % (39.6-50.0); HGB 11.1 g/dL (13.0-17.0); Lymphocytes # (A) 1.15 X 10*3/uL (0.90-5.00); MCH 28.9 pg (27.0-32.0); MCHC 32.7 g/dL (32.0-37.0); MCV 88.3 FL (80.0-97.0); Mean Platelet Volume 8.9 FL (9.5-12.2); Monocytes # (A) 0.91 X 10*3/uL (0.20-1.00); Monocytes % (A) 9.5 %; NRBC Per 100 WBC 0 X 10*3/uL (0.00-0.01); Neutrophils # (A) 7.14 X 10*3/uL (1.80-7.70); Neutrophils % (A) 74.9 %; Platelet Count 325 X 10*3/uL (140-440); RBC 3.84 X 10*6/uL (4.40-5.60); RDW 14.6 % (11.5-14.5); WBC 9.55 X 10*3/uL (4.50-10.00)
--- NOTE | 2023-08-02 14:03 | P.PN ---
Subjective Progress Note Date: 08/02/23 (Small bowel obstruction) Progress note Dictation date 08/02/[address] Griffin Patient seen and evaluated [id number] currently he transferred from the ER to room 516 on the floor. Patient seen by nurse practitioner of Dr. Goodman. Patient complaining of severe pain in the both sides of the lower back with the underlying degenerative disc disease L4-L5 Patient started on clear liquid diet by the surgeon. No BMs no flatus yet it appears to me that we are waiting for conservative treatment and it may help resolution of the small bowel obstruction. Laboratory reviewed: Lactic acid returned to normal range with IV hydration, serum lipase also improved significantly. Patient will ready on antibiotic started in the ER On the physical exam: Patient is conscious alert oriented able to communicate freely however he is forgetful. He able to ambulate and go to the bathroom he does not have Dow catheter. No BM still abdominal pain. On exam head was normocephalic atraumatic oropharynx natural teeth able to eat and swallow currently he eating full liquid diet it appears to me per order of surgical team Neck was supple no JVD no thyromegaly no lymphadenopathy trachea midline. Chest currently normal breath sound chest x-ray was negative with the history of COPD and asthma Heart currently regular sinus rhythm compensated no dysrhythmia and no signs of decompensation Abdomen: He has severe pain in the right lower quadrant with deep palpation and mid abdomen, he had high-pitched bowel sounds intermittently it appeared that probable bowel obstruction in the small bowel with adhesion. Extremities: No edema positive pulses Neurologically: No lateralizing sign however he had a right facial asymmetry and left eye lid drooping. Assessment: 1. Small bowel obstruction, so far no BM, no passing flatus, still had the abdominal pain worse on the left lower quadrant than mid abdomen 2. Secondary diagnosis COPD with asthma stable 3. Low back pain with the underlying old 4 and 5 discogenic disease. Plan: 1. Will apply lidocaine 5% patch on both sides of the LS spine in the range of L4-L5 discussed with his nurse 2. Trying to avoid the pain medication which could be prolonged the small bowel obstruction with the narcotic and sluggish bowel movement. Continue the current treatment by the surgeon Dr. Pinzon. Objective - Vital Signs Vital signs: Vital Signs Temp 97.7 F 08/02/23 12:57 Pulse 86 03/26/24 12:57 Resp 17 08/02/23 12:57 BP 134/76 08/02/23 12:57 Pulse Ox 96 08/02/23 12:57 FiO2 Intake & Output 08/01/23 08/02/23 08/02/23 18:59 06:59 18:59 Intake Total 100 460 400 Balance 100 460 400 Weight 77.111 kg 77.111 kg Intake: Intake, IV Titration 100 100 Amount Ampicillin-Sulbactam 3 gm 100 In Sodium Chloride 0.9% 100 ml @ 200 mls/hr IVPB Q8H [facility] Rx#:[id number] Ampicillin-Sulbactam 3 gm 100 In Sodium Chloride 0.9% 100 ml @ 200 mls/hr IVPB Q8HR [facility] Rx#:[id number] Oral 360 400 Other: Voiding Method Toilet # Voids 1 - Labs CBC & Chem 7: 08/02/23 06:37 08/02/23 10:41 Labs: Abnormal Lab Results - Last 24 Hours (Table) 08/02/23 08/02/23 08/02/23 Range/Units 06:37 06:37 10:41 RBC 3.84 L (4.40-5.60) X 10*6/uL Hgb 11.1 L (13.0-17.0) g/dL Hct 33.9 L (39.6-50.0) % RDW 14.6 H (11.5-14.5) % MPV 8.9 L (9.5-12.2) FL Chloride 109 H (98-107) mmol/L Carbon Dioxide 21 L (22-30) mmol/L BUN 22 H (9-20) mg/dL Est GFR (CKD-EPI) 49 L (>=60) Total Protein 5.4 L (6.2-8.2) g/dL Albumin 3.4 L (3.8-4.9) g/dL Microbiology - Last 24 Hours (Table) 08/01/23 07:50 Blood Culture - Preliminary Blood 08/01/23 07:35 Blood Culture - Preliminary Blood
[2023-08-02] MEDS: LIDOCAINE 4% PATCH TOPICAL SCH (14:49)
--- NOTE | 2023-08-02 15:32 | P.PN ---
Subjective Progress Note Date: 08/02/23 CHIEF COMPLAINT: Abdominal pain HISTORY OF PRESENT ILLNESS: Patient reports that his pain is improving. He has no bowel movements. No flatus. He is tolerating clear liquids. He is sitting at bedside chair. He is complaining mostly of back pain. Medicine service ordered Lidoderm patches. Afebrile. WBC has normalized from 11.3-9.5 PHYSICAL EXAM: VITAL SIGNS: Reviewed GENERAL: Well-developed in no acute distress. HEENT: No sclera icterus. Extraocular movements grossly intact. Moist buccal m ucosa. Head is atraumatic, normocephalic. Hears conversational speech. No nasal drainage. NECK: Supple without lymphadenopathy. CHEST: Non-labored respirations and equal bilateral excursions. CARDIOVASCULAR: Palpable 2+ radial pulses. ABDOMEN: Soft. Mildly distended. Tenderness with left lower quadrant and suprapubic palpation MUSCULOSKELETAL: No clubbing or cyanosis. NEUROLOGIC: No focal or lateralizing signs. Cranial nerves II through XII grossly intact. PSYCH: Appropriate affect. Alert and oriented to person, place and time. SKIN: Well perfused. Good skin turgor. ASSESSMENT: 1. Left-sided abdominal pain 2. Possible partial small bowel obstruction noted on CT scan 3. Possible diverticulitis not excluded noted on CT scan 4. Elevated lactic acid level on admission improved with fluids PLAN: -Continue clear liquid diet -Continue antibiotics -Continue IV fluids -Consult physical therapy. Encourage patient ambulate Physician Rn Lpn Lvn note has been reviewed by physician. Signing provider agrees with the documented findings, assessment, and plan of care. Objective - Vital Signs Vital signs: Vital Signs Temp 97.7 F 08/02/23 12:57 Pulse 64 08/02/23 15:09 Resp 17 08/02/23 12:57 BP 134/76 08/02/23 12:57 Pulse Ox 96 08/02/23 12:57 FiO2 Intake & Output 08/01/23 08/02/23 08/02/23 18:59 06:59 18:59 Intake Total 100 460 640 Balance 100 460 640 Weight 77.111 kg 77.111 kg Intake: Intake, IV Titration 100 100 Amount Ampicillin-Sulbactam 3 gm 100 In Sodium Chloride 0.9% 100 ml @ 200 mls/hr IVPB Q8H [facility] Rx#:[id number] Ampicillin-Sulbactam 3 gm 100 In Sodium Chloride 0.9% 100 ml @ 200 mls/hr IVPB Q8HR [facility] Rx#:[id number] Oral 360 640 Other: Voiding Method Toilet Toilet # Voids 1 1 - Labs CBC & Chem 7: 08/02/23 06:37 08/02/23 10:41 Labs: Abnormal Lab Results - Last 24 Hours (Table) 08/02/23 08/02/23 08/02/23 Range/Units 06:37 06:37 10:41 RBC 3.84 L (4.40-5.60) X 10*6/uL Hgb 11.1 L (13.0-17.0) g/dL Hct 33.9 L (39.6-50.0) % RDW 14.6 H (11.5-14.5) % MPV 8.9 L (9.5-12.2) FL Chloride 109 H (98-107) mmol/L Carbon Dioxide 21 L (22-30) mmol/L BUN 22 H (9-20) mg/dL Est GFR (CKD-EPI) 49 L (>=60) Total Protein 5.4 L (6.2-8.2) g/dL Albumin 3.4 L (3.8-4.9) g/dL Microbiology - Last 24 Hours (Table) 08/01/23 07:50 Blood Culture - Preliminary Blood 08/01/23 07:35 Blood Culture - Preliminary Blood
[2023-08-03] MEDS: ONDANSETRON 4 MG/2 ML VIAL IVP PRN ×2 (10:42→16:24)
--- NOTE | 2023-08-03 12:53 | P.PN ---
Subjective Progress Note Date: 08/03/23 Progress note Date of service 08/03/[address] Griffin. Patient seen [id number] evaluated and reviewed the physician broker assistant of Dr. Pinzon who stated that patient is improving however nursing staff stated the pain is worsening and he had to receive morphine 2 help the pain As patient stated that the pain is very bad in the mid abdomen and left lower quadrant. Patient send for small bowel follow-through and to evaluate of the small bowel obstruction. His vital signs today stable with temperature 98.7 F oral and his heart rate was in the morning tachycardic was 105 bpm respiratory rate was 22 and blood pressure 153/81 with a mean 105 oxygen saturation 97% no Patient denied any chest pain or shortness of breath. On the examination HEENT no changes and he had natural teeth Neck was supple no thyromegaly no lymphadenopathy Chest he has increased anteroposterior diameter with the hyperinflation and COPD but no wheezes or rhonchi's and oxygen saturation stable Heart regular sinus rhythm no evidence of decompensation. Abdomen: Mean pain in the left lower quadrant and mid abdomen which he received this morning morphine and to alleviate his pain and moved him up to be closer to the nursing desk. Extremities no edema and positive pulses. Neurologically no change stable able to move 4 extremities no lateralizing sign. Assessment and discussion: Patient send for small bowel follow-through per the surgical team Patient has been on full liquid diet per surgical team. Small bowel obstruction with the history of adhesions. COPD no exacerbation Cognitive function impairment was forgetfulness. 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 Plan 1. Patient followed by Dr. Pinzon surgical team and currently he is getting the small bowel follow-through for evaluation 2. Patient with no exacerbation 3. The possibility of diverticulitis still present and patient on antibiotic. 4. No flatus and no bowel movement abdomen is silent. Objective - Vital Signs Vital signs: Vital Signs Temp 98.7 F 08/03/23 08:10 Pulse 70 08/03/23 12:02 Resp 22 08/03/23 08:10 BP 153/81 08/03/23 08:10 Pulse Ox 97 08/03/23 08:10 FiO2 Intake & Output 08/02/23 08/03/2308/02/24 18:59 06:59 18:59 Intake Total 1320 590 Output Total 300 Balance 1320 290 Weight 77.111 kg Intake: Oral 1320 590 Output: Urine 300 Other: Voiding Method Toilet Toilet Toilet # Voids 1 1 - Labs CBC & Chem 7: 08/02/23 06:37 08/02/23 10:41 Labs: Microbiology - Last 24 Hours (Table) 08/01/23 07:50 Blood Culture - Preliminary Blood 08/01/23 07:35 Blood Culture - Preliminary Blood
[2023-08-03] MEDS ORDERED: ACETAMINOPHEN TAB 325 MG TAB PO PRN (15:50)
[2023-08-03] MEDS: PIPERACILLIN-TAZOBACTAM 3.375 GM in SODIUM CHLORIDE 0.9% 100 ML IVPB SCH (16:06)
--- NOTE | 2023-08-03 16:13 | FL ---
EXAMINATION TYPE: FL small bowel follow through DATE OF EXAM: 08/03/2023 CLINICAL HISTORY: Abdominal pain TECHNIQUE: A single contrast small bowel follow through is performed utilizing barium. COMPARISON: 08/01/2023 FINDINGS: Magazine Repairer image of the abdomen shows a dilated small bowel loops measuring up to 3.8 cm with f indings highly suspicious for bowel obstruction. Calcified lymph nodes in the mediastinum and left hi lum. Basilar atelectasis favored over pneumonia. Postcholecystectomy clips. Scoliotic curvature of th e spine with multilevel degenerative disc disease. Metallic seeds overlying the region of the prostat e. Vascular calcifications noted. There is a numerous dilated small bowel loops extending to the level of the ileum. There is delayed t ransit time through the small bowel at 3 hours. Question a small amount of the contrast within the co macie at 3 hours. IMPRESSION: 1. Persistent markedly dilated small bowel loops and pattern suspicious for a small bowel obstruction . Recommended additional follow-up abdominal KUB in one to 2 hours to determine if contrast has passe d into the colon. 2. Right lower lobe infiltrate.
[2023-08-03] MEDS: ACETAMINOPHEN IV (For NPO) 1,000 MG in EMPTY BAG 1 BAG IVPB STA (16:21)
[2023-08-03] MEDS: HYDROmorphone 1 MG/ML 1 ML SYRINGE IVP PRN (16:21)
--- NOTE | 2023-08-03 16:37 | XR ---
EXAMINATION TYPE: XR abdomen 2V DATE OF EXAM: 08/03/2023 4:28 PM CLINICAL INDICATION:Male, 83 years old with history of worsening abdominal pain; [facility] COMPARISON: 08/01/2023 CT, small bowel follow-through same day. TECHNIQUE: Two views of the abdomen were obtained. FINDINGS: No definitive contrast seen within the colon. Similar dilated loops of small bowel througho ut the abdomen. Surgical clips in right upper quadrant. Multilevel degeneration changes of the spine. Mild osteoarthrosis changes of the hips. IMPRESSION: No definitive contrast within the colon continued follow-up in 4 hours recommended.
--- NOTE | 2023-08-03 17:06 | P.PN ---
Subjective Progress Note Date: 08/03/23 CHIEF COMPLAINT: Abdominal pain HISTORY OF PRESENT ILLNESS: Patient reports increase in left lower quadrant abdominal pain. He did have a episode of vomiting this morning after the morphine. Patient starting to have low-grade temps and has been tachycardic this afternoon. Medicine service has added Zosyn. CBC pending. Small bowel follow-through ordered this morning. And patient made NPO. Results reported persistent markedly dilated small bowel loops in pattern suspicious for small bowel obstruction. Follow-up abdominal x-ray shows no contrast within the colon at 4-hour follow-up. PHYSICAL EXAM: VITAL SIGNS: Reviewed GENERAL: Well-developed in no acute distress. HEENT: No sclera icterus. Extraocular movements grossly intact. Moist buccal mucosa. Head is atraumatic, normocephalic. Hears conversational speech. No nasal drainage. NECK: Supple without lymphadenopathy. CHEST: Non-labored respirations and equal bilateral excursions. CARDIOVASCULAR: Palpable 2+ radial pulses. ABDOMEN: Distended. Tenderness palpation left lower quadrant tenderness with left lower quadrant and suprapubic palpation MUSCULOSKELETAL: No clubbing or cyanosis. NEUROLOGIC: No focal or lateralizing signs. Cranial nerves II through XII grossly intact. PSYCH: Appropriate affect. Alert and oriented to person, place and time. SKIN: Well perfused. Good skin turgor. ASSESSMENT: 1. Concerns for possible small bowel obstruction 2. Left-sided abdominal pain 3. Possible partial small bowel obstruction noted on CT scan 4. Possible diverticulitis not excluded noted on CT scan 5. Elevated lactic acid level on admission improved with fluids PLAN: -Further recommendations forthcoming per surgeon -Place NG tube for decompression -Keep patient n.p.o. -Continue antibiotics -Continue IV fluids Physician Sustainability Director note has been reviewed by physician. Signing provider agrees with the documented findings, assessment, and plan of care. Objective - Vital Signs Vital signs: Vital Signs Temp 100.1 F H 08/03/23 15:45 Pulse 132 H 08/03/23 15:45 Resp 18 08/03/23 15:45 BP 159/97 08/03/23 15:45 Pulse Ox 99 08/03/23 14:38 FiO2 Intake & Output 08/02/23 08/03/23 08/03/23 18:59 06:59 18:59 Intake Total 1320 590 Output Total 300 1 Balance 1320 290 -1 Weight 77.111 kg Intake: Oral 1320 590 Output: Urine 300 Emesis 1 Other: Voiding Method Toilet Toilet Toilet # Voids 1 1 1 - Labs CBC & Chem 7: 08/02/23 06:37 08/02/23 10:41 Labs: Microbiology - Last 24 Hours (Table) 08/01/23 07:50 Blood Culture - Preliminary Blood 08/01/23 07:35 Blood Culture - Preliminary Blood
[2023-08-03 17:29] LABS: Basophils # (A) 0.1 k/uL (0-0.2); Basophils % (A) 0 %; Eosinophils # (A) 0.1 k/uL (0-0.7); Eosinophils % (A) 0 %; HCT 37.6 % (39.0-53.0); HGB 12.3 gm/dL (13.0-17.5); Lymphocytes # (A) 0.7 k/uL (1.0-4.8); Lymphocytes % (A) 4 %; MCHC 32.7 g/dL (31.0-37.0); MCV 88.8 fL (80.0-100.0); Mean Platelet Volume 6.6; Monocytes # (A) 0.8 k/uL (0-1.0); Monocytes % (A) 5 %; Neutrophils # (A) 13.8 k/uL (1.3-7.7); Neutrophils % (A) 89 %; Platelet Count 383 k/uL (150-450); RBC 4.23 m/uL (4.30-5.90); RDW 13.9 % (11.5-15.5); WBC 15.5 k/uL (3.8-10.6)
--- NOTE | 2023-08-03 18:09 | XR ---
EXAMINATION TYPE: XR chest 1V portable DATE OF EXAM: 08/03/2023 5:58 PM CLINICAL INDICATION:Male, 83 years old with history of NG tube placement; [facility] COMPARISON: Chest radiographs from 08/01/2023. TECHNIQUE: XR chest 1V portable Frontal view of the chest. FINDINGS: Lungs/Pleura: There is no evidence of pleural effusion, focal consolidation, or pneumothorax. Pulmonary vascularity: Unremarkable. Heart/mediastinum: Cardiomediastinal silhouette is unremarkable. Musculoskeletal: No acute osseous pathology. Other findings: Distended loops of bowel are seen throughout the abdomen. Lines/Tubes: Nasogastric tube with side-port projecting over the distal esophagus. IMPRESSION: Advancement of nasogastric tube at least 10 cm for optimal placement the gastric lumen.
--- NOTE | 2023-08-04 09:40 | XR ---
EXAMINATION TYPE: XR chest 1V portable DATE OF EXAM: 08/04/2023 9:02 AM CLINICAL INDICATION:Male, 83 years old with history of Shortness of breath, desaturation; [facility] COMPARISON: Chest radiographs from TECHNIQUE: XR chest 1V portable Frontal view of the chest. FINDINGS: Lungs/Pleura: There is no evidence of pleural effusion, focal consolidation, or pneumothorax. Pulmonary vascularity: Unremarkable. Heart/mediastinum: Cardiomediastinal silhouette is unremarkable. Musculoskeletal: No acute osseous pathology. Other findings: Air beneath the left hemidiaphragm likely from air contained in the stomach. Free air . Free air is felt much less likely Lines/Tubes: NG tube has been removed. IMPRESSION: No acute cardiopulmonary disease/process.
[2023-08-04] MEDS: SODIUM CHLORIDE 0.9% 1,000 ML IV ONE (10:12)
[2023-08-04] MEDS: FUROSEMIDE 10 MG/ML 2 ML VIAL IV ONE (11:47)
--- NOTE | 2023-08-04 11:48 | P.PN ---
Subjective Progress Note Date: 08/04/23 This is dictation on the progress note date of service 08/04/[address] Griffin On the communication through [employer] on 08/03/2023 at 4:06 PM I received a call from the nursing staff indicating that patient had nausea and vomiting associated with morphine and the requesting to change the Zofran to every four 6R. And the nursing staff noticed that each time when he get the morphine he get the nauseous and vomiting We increased the Zofran to 3 to 4-hour as needed as well as changed the morphine to Dilaudid for the pain in the abdomen which becomes severe. This morning we have communication by [place], and the nursing staff indicating that his heart rate went up to 140 at rest and oxygen dropped to 88% on the room air with the oxygen supplementation 3 L went to 92% and his barby thing sound is congested but he is not complaining also his blood pressure was dropped to 109/65. He pulled out his NG tube overnight with the attempt to restart the NG tube was no success also the urine output was 0 so the per the straight catheter and the phone 350 mL of urine they already notified Dr. Pinzon also during the night he has suddenly by the nursing staff communication his temperature went up to 100.1 F oral and his heart rate went up to 132 bpm as well as his blood pressure was 159/97 and subsequently dropped to 103/68. This morning he had a temperature 97.7 9 and his heart rate 143/min and blood pressure 109/65. His white count went up from 9.55-15.5. With the information from the abdominal rigidity and increased heart rate as well has increased temperature the suspicious of rupture was entertained and at that time we ordered blood culture x 2 and change Unasyn to Zosyn. EKG was ordered this morning and found that he has sinus tachycardia with incomplete right bundle branch block and at this time we ordered transfer patient to technician plant and maintenance third-floor's house with the shortness of breath as well as increased heart rate needs a telemetry as well as drop of his blood pressure. Meanwhile we also requested the pulmonary and critical care doctor Mely to see the patient for evaluation with the underlying current symptoms and critical changes. Patient had yesterday small bowel follow-through which indicating the persistence of small bowel obstruction the questionable of diverticulitis considered however when the patient came initially to the ER he has no elevated white count. Neuro Patient currently had no bowel movement and no flatus and severe abdominal pain with the abdominal rigidity, Dr. Goodman notified through the his nurse. I did discuss it with Dr. Abdoul levi and he saw him on the fifth floor and he was worried about air under the diaphragm with questionable rupture and he ordered CT scan of the abdomen stat. I did order for patient is BMP, lipase, amylase, magnesium to be done today. On exam: Patient appears more sicker and probable mild dehydration however the abdominal pain and he was on IV fluids 75 cc an hour. Will check his renal function as above ordered The head was normocephalic atraumatic pupil was equal reactive and he is intermittently confused with a cognitive function impairment still his level of pain in the abdomen is high. The neck was supple no JVD Chest he has history of COPD and he has normal breath sounds with occasional rhonchi Heart: Tachycardia not controlled and we will ask the cardiology already consulted and to be transferred the patient to technician plant and maintenance to the [address] [place] [address] for the inspector open die. And for cardiology to see the patient and to treat. Abdomen guarding rigidity started with severe abdominal pain with light touch 10/10 Extremities: Positive pulses and no edema Musculoskeletal he had severe discogenic disease of the LS spine. Assessment: 1. Patient condition unchanged and become critical 2. Need more monitor cardiac kraft as well as pulmonary is received patient become more congested by [employer] 3. Small bowel obstruction with pain with no resolution Dr. Pinzon has been notified Plan: As mentioned above transfer to [facility] technician plant and maintenance with the consultation for cardiology and pulmonary. Objective - Vital Signs Vital signs: Vital Signs Temp 97.9 F 08/04/23 07:52 Pulse 139 H 08/04/23 08:15 Resp 20 08/04/23 07:52 BP 109/65 08/04/23 07:52 Pulse Ox 92 L 08/04/23 08:15 FiO2 Intake & Output 08/03/23 08/04/23 08/04/23 18:59 06:59 18:59 Intake Total 1025 Output Total 1 2500 Balance 1024 -2500 Intake: Intake, IV Titration 1025 Amount Ampicillin-Sulbactam 3 gm 100 In Sodium Chloride 0.9% 100 ml @ 200 mls/hr IVPB Q8HR [facility] Rx#:[id number] Piperacillin-Tazobactam 3 25 .375 gm In Sodium Chloride 0.9% 100 ml @ 25 mls/hr IVPB Q8HR [facility] Rx# :[id number] Sodium Chloride 0.9% 1, 900 000 ml @ 75 mls/hr IV . [id number] [facility] Rx#:[id number] Output: Gastric Drainage 2150 Post Void Residual 350 Emesis 1 Other: Voiding Method Toilet Toilet Toilet Urinal # Voids 3 1 - Labs CBC & Chem 7: 08/03/23 17:09 08/02/23 10:41 Labs: Abnormal Lab Results - Last 24 Hours (Table) 08/03/23 Range/Units 17:09 WBC 15.5 H (3.8-10.6) k/uL RBC 4.23 L (4.30-5.90) m/uL Hgb 12.3 L (13.0-17.5) gm/dL Hct 37.6 L (39.0-53.0) % Neutrophils # 13.8 H (1.3-7.7) k/uL Lymphocytes # 0.7 L (1.0-4.8) k/uL Microbiology - Last 24 Hours (Table) 08/01/23 07:50 Blood Culture - Preliminary Blood 08/01/23 07:35 Blood Culture - Preliminary Blood
[2023-08-04 11:56] LABS: African American GFR (CKD) 20 (>60 ml/min/1.73 sqM); Amylase 73 U/L (30-110); Anion Gap 18 mmol/L; Blood Urea Nitrogen 34 mg/dL (9-20); Calcium 8.9 mg/dL (8.4-10.2); Carbon Dioxide 14 mmol/L (22-30); Chloride 107 mmol/L (98-107); Glucose 88 mg/dL (74-99); Lipase 49 U/L (23-300); Magnesium 1.7 mg/dL (1.6-2.3); Non-African American GFR(CKD) 17 (>60 ml/min/1.73 sqM); Potassium 4.6 mmol/L (3.5-5.1); Sodium 139 mmol/L (137-145)
[2023-08-04 12:15] LABS: Basophils # (A) 0.07 X 10*3/uL (0.00-0.10); Basophils % (A) 0.8 %; Eosinophils # (A) 0.01 X 10*3/uL (0.04-0.35); Eosinophils % (A) 0.1 %; HCT 37.9 % (39.6-50.0); HGB 12.6 g/dL (13.0-17.0); Lymphocytes # (A) 0.54 X 10*3/uL (0.90-5.00); Lymphocytes % (A) 6.3 %; MCH 28.8 pg (27.0-32.0); MCHC 33.2 g/dL (32.0-37.0); MCV 86.5 FL (80.0-97.0); Mean Platelet Volume 9.2 FL (9.5-12.2); Monocytes # (A) 1.06 X 10*3/uL (0.20-1.00); Monocytes % (A) 12.4 %; NRBC Per 100 WBC 0 X 10*3/uL (0.00-0.01); Neutrophils # (A) 6.82 X 10*3/uL (1.80-7.70); Neutrophils % (A) 80.2 %; Platelet Count 373 X 10*3/uL (140-440); RBC 4.38 X 10*6/uL (4.40-5.60); RDW 14.6 % (11.5-14.5); WBC 8.52 X 10*3/uL (4.50-10.00)
[2023-08-04] MEDS ORDERED: METOPROLOL TARTRATE 5 MG/5 ML VIAL IVP PRN (12:17)
--- NOTE | 2023-08-04 13:01 | CT ---
EXAMINATION TYPE: CT abdomen pelvis wo con CT DLP: 731.4 mGycm, Automated exposure control for dose reduction was used. DATE OF EXAM: 08/04/2023 9:49 AM COMPARISON: CT abdomen pelvis most recent from CLINICAL INDICATION:Male, 83 years old with history of Abdomen pain; abd pain TECHNIQUE: Axial CT abdomen pelvis wo con;Sagittal and coronal reformats were created on a separate workstation. Contrast used: mL of , (none if empty) Oral contrast used: with Oral Contrast (none if empty) FINDINGS: LOWER CHEST: Bibasilar moderate airspace disease. ABDOMEN LIVER: Calcified granulomata from healed granulomatous disease. No acute process. GALLBLADDER AND BILE DUCTS: Unremarkable. PANCREAS: Unremarkable. SPLEEN: Unremarkable. ADRENAL GLANDS: Unremarkable. KIDNEYS AND URETERS: No evidence of hydronephrosis or renal calculus. The ureters are unremarkable. PELVIS BLADDER: Distended, otherwise unremarkable. REPRODUCTIVE: Unremarkable. Prostate metal clips. ABDOMEN & PELVIS STOMACH AND BOWEL: . Evidence of bowel obstruction. PERITONEUM/RETROPERITONEUM: Small amount of free fluid present. VASCULATURE: No evidence of aortic aneurysm. MUSCULOSKELETAL: No acute osseous abnormalities LYMPH NODES: No gross evidence for lymphadenopathy. SOFT TISSUE/ABDOMINAL WALL: Unremarkable IMPRESSION: 1. Bowel obstruction pattern. Small amount of free fluid.
--- NOTE | 2023-08-04 13:04 | XR ---
EXAMINATION TYPE: XR chest 1V portable DATE OF EXAM: 08/04/2023 12:49 PM CLINICAL INDICATION:Male, 83 years old with history of NG tube placement; [facility] COMPARISON: Earlier today. TECHNIQUE: XR chest 1V portable Frontal view of the chest. FINDINGS: Lungs/Pleura: There is no evidence of pleural effusion, focal consolidation, or pneumothorax. Pulmonary vascularity: Unremarkable. Heart/mediastinum: Cardiomediastinal silhouette is unremarkable. Musculoskeletal: No acute osseous pathology. Other findings: None Lines/Tubes: Nasogastric tube with distal tip projecting off the inferior aspect of the radiograph. IMPRESSION: No acute cardiopulmonary disease/process. Nasogastric tube is well-positioned.
--- NOTE | 2023-08-04 13:15 | P.CRDCN ---
History of Present Illness History of present illness: HISTORY OF PRESENT ILLNESS: This is a 83-year-old male with a past medical history significant for coronary artery disease with previous angioplasty of the LAD in 2007, hypertension, hype rlipidemia, COPD, hypothyroidism, and dementia. Patient used to follow in the office with Dr. Worthington but has not been seen since May 2019. We have been asked to see the patient in consultation for hypertension. Patient examined at the bedside. Patient currently denies chest pain or pressure. He denies shortness of breath. He reports abdominal pain. Patient pulled out his NG tube this morning and nursing is attempting to reinsert NG tube at this time. Patient is n.p.o. Bedside telemetry reveals sinus tachycardia/atrial tachycardia with a heart rate around 120. DIAGNOSTICS: - EKG reveals sinus tachycardia versus atrial tachycardia with a heart of 147. No signs of acute ischemia. Incomplete right bundle branch block.. - Chest xray negative for acute process. - Laboratory data: WBC 15.5. Hemoglobin 12.3. Platelet count 383. Sodium 139. Potassium 4.2. BUN 22. Creatinine 1.24. - Current home cardiac medications include aspirin 81 mg daily, Lipitor 80 mg at night, metoprolol tartrate 25 mg twice a day, losartan 50 mg daily. - Most recent echocardiogram obtained in March 2023 revealed ejection fraction 55 to 60%, mild mitral and aortic regurgitation REVIEW OF SYSTEMS: At the time of my exam: CONSTITUTIONAL: Denies fever or chills. HEENT: Denies blurred vision, vision changes, or eye pain. Denies hemoptysis CARDIOVASCULAR: Denies chest pain. Denies orthopnea. Denies PND. Denies palpitations RESPIRATORY: Denies shortness of breath. GASTROINTESTINAL: Denies abdominal pain. Denies nausea or vomiting. HEMATOLOGIC: Denies bleeding disorders. GENITOURINARY: Denies any blood in urine. SKIN: Denies pruitis. Denies rash. PHYSICAL EXAM: VITAL SIGNS: Reviewed. GENERAL: Well-developed in no acute distress. HEENT: Head is normocephalic. Pupils are equal, round. Sclerae anicteric. Mucous membranes of the mouth are moist. Neck supple. No JVD or thyromegaly LUNGS: Respirations even and unlabored. Lungs essentially clear to auscultation bilaterally. HEART: Tachycardic. Regular rate and rhythm. S1 and S2 heard. ABDOMEN: Mildly distended. Tenderness upon palpation. EXTREMITIES: Normal range of motion. No clubbing or cyanosis. Peripheral pulses intact. No lower extremity edema NEUROLOGIC: Awake and alert. Oriented x 3. ASSESSMENT: Abdominal pain Small bowel obstruction Possible diverticulitis Sinus tachycardia/atrial tachycardia, likely physiological response due to underlying acute illness Acute renal failure Coronary artery disease with previous angioplasty of the LAD in 2007 Hypertension Hyperlipidemia COPD Hypothyroidism Dementia PLAN: Patient currently NPO. Nursing attempting to reinsert NG tube. Patient to be transferred to Continue telemetry monitoring Begin IV Cardizem at 5mg/hr following 5mg bolus Give 500 cc bolus. Continue with IV fluid hydration. Monitor kidney function. PRN metoprolol ordered Further recommendations pending patient course Nurse practitioner note has been reviewed by physician. Signing provider agrees with the documented findings, assessment, and plan of care documented by VITAMIN MANAGER as a scribe. Past Medical History Past Medical History: Coronary Artery Disease (CAD), COPD, Dementia, GERD/Reflux, Hyperlipidemia, Hypertension Additional Past Medical History / Comment(s): dysphagia, states some memory loss History of Any Multi-Drug Resistant Organisms: None Reported Past Surgical History: Cholecystectomy, Heart Catheterization With Stent Additional Past Surgical History / Comment(s): corbin cataracts, EGD Past Anesthesia/Blood Transfusion Reactions: No Reported Reaction Date of Last Stent Placement:: unknown Past Psychological History: No Psychological Hx Reported Smoking Status: Never smoker Past Alcohol Use History: None Reported Past Drug Use History: None Reported - Past Family History Mother Family Medical History: Cancer Father Family Medical History: Cancer Medications and Allergies Home Medications Medication Instructions Recorded Confirmed Type Metoprolol Tartrate 25 mg PO BID 05/27/17 08/01/23 History Montelukast [Singulair] 10 mg PO DAILY 05/27/17 08/01/23 History Theophylline 12 Hour [Silvio-Dur] 300 mg PO BID 05/27/17 08/01/23 History Atorvastatin [Lipitor] 80 mg PO HS 11/22/19 08/01/23 History Famotidine [Pepcid] 20 mg PO BID 11/22/19 08/01/23 History Levothyroxine Sodium [Synthroid] 50 mcg PO DAILY 11/22/19 08/01/23 History Donepezil [Aricept] 10 mg PO HS 03/15/23 08/01/23 History Losartan [Cozaar] 50 mg PO DAILY 03/15/23 08/01/23 History Memantine [Namenda] 10 mg PO BID 03/15/23 08/01/23 History Budesonide-Formot 160-4.5 Mcg 2 puff INHALATION RT-BID #1 each 03/19/23 08/01/23 Rx [Symbicort 160-4.5 Mcg Inhaler] Ipratropium-Albuterol Nebulize 3 ml INHALATION RT-QID #120 each 03/19/23 08/01/23 Rx [Duoneb 0.5 mg-3 mg/3 ml Soln] Albuterol Sulfate [Albuterol 2 puff INHALATION RT-QID PRN 04/08/23 08/01/23 Hi story Sulfate Hfa] Aspirin EC [Ecotrin Low Dose] 81 mg PO DAILY 08/01/23 08/01/23 History Triamcinolone 0.1% Cream [Kenalog 1 applicatio TOPICAL BID 08/01/23 08/01/23 History 0.1% Cream] Allergies Allergy/AdvReac Type Severity Reaction Status Date / Time ciprofloxacin [From Cipro] Allergy Rash/Hives Verified 08/01/23 11:53 levofloxacin [From Levaquin] Allergy Unknown Verified 08/01/23 11:53 rofecoxib Allergy Unknown Verified 08/01/23 11:53 sulfamethoxazole Allergy Swelling Verified 08/01/23 11:53 [From Bactrim] trimethoprim [From Bactrim] Allergy Swelling Verified 08/01/23 11:53 fluconazole [From Diflucan] AdvReac DIzziness Verified 08/01/23 11:53 & Giddiness Physical Exam Vitals: Vital Signs Temp Pulse Pulse Resp BP Pulse Ox 08/04/23 08:15 139 H 92 L 08/04/23 07:54 92 L 08/04/23 07:52 97.9 F 143 H 20 109/65 88 L 08/04/23 02:45 120 H 08/04/23 02:00 98.4 F 139 H 16 123/82 97 08/03/23 20:15 120 H 08/03/23 20:04 124 H 08/03/23 20:00 98.1 F 132 H 16 103/68 95 08/03/23 15:45 100.1 F H 132 H 132 H 18 159/97 08/03/23 15:36 121 H 08/03/23 14:38 100.1 F H 56 L 18 173/91 99 08/03/23 12:02 70 08/03/23 11:50 71 Intake and Output 08/03/23 08/04/23 08/04/23 22:59 06:59 14:59 Intake Total 1025 Output Total 550 1950 Balance 475 -1950 Intake: Intake, IV Titration 1025 Amount Ampicillin-Sulbactam 3 gm 100 In Sodium Chloride 0.9% 100 ml @ 200 mls/hr IVPB Q8HR [facility] Rx#:[id number] Piperacillin-Tazobactam 3 25 .375 gm In Sodium Chloride 0.9% 100 ml @ 25 mls/hr IVPB Q8HR [facility] Rx# :[id number] Sodium Chloride 0.9% 1, 900 000 ml @ 75 mls/hr IV . [id number] [facility] Rx#:[id number] Output: Gastric Drainage 550 1600 Post Void Residual 350 Other: Voiding Method Toilet Toilet Urinal # Voids 3 1 Results 08/04/23 07:15 08/04/23 07:15 CBC 08/03/23 Range/Units 17:09 WBC 15.5 H (3.8-10.6) k/uL RBC 4.23 L (4.30-5.90) m/uL Hgb 12.3 L (13.0-17.5) gm/dL Hct 37.6 L (39.0-53.0) % Plt Count 383 (150-450) k/uL Current Medications Generic Name Dose Route Start Last Admin Trade Name Freq PRN Reason Stop Dose Admin Acetaminophen 650 mg 08/03/23 15:50 Acetaminophen Tab 325 Mg Tab PO Q6HR PRN Fever and/ or Pain Albuterol Sulfate 2 puff 08/01/23 09:16 Albuterol Hfa Inhaler INHALATION RT-QID PRN Shortness Of Breath Albuterol/Ipratropium 3 ml 08/01/23 12:00 08/04/23 08:12 Ipratropium-Albuterol 3 Ml Neb INHALATION 3 ml RT-QID [facility] Administration Budesonide/Formoterol Fumarate 2 puff 08/01/23 20:00 08/04/23 08:12 Symbicort 160-4.5 Mcg Inhaler INHALATION 2 puff RT-BID [facility] Administration Hydromorphone HCl 1 mg 08/03/23 16:16 08/04/23 10:20 Hydromorphone 1 Mg/Ml 1 Ml Syringe IVP 1 mg Q3HR PRN Administration Pain Sodium Chloride 1,000 mls @ 125 mls/hr 08/01/23 07:00 08/04/23 10:13 Saline 0.9% IV 125 mls/hr .Q8H [facility] Administration Piperacillin Sod/Tazobactam 100 mls @ 25 mls/hr 08/03/23 16:00 08/04/23 10:08 Sod 3.375 gm/ Sodium Chloride IVPB 25 mls/hr Q8HR [facility] Administration Protocol Levothyroxine Sodium 50 mcg 08/02/23 06:30 08/04/23 06:10 Levothyroxine 50 Mcg Tab PO Not Given DAILY@0630 [facility] Lidocaine 2 patch 08/02/23 13:30 08/04/23 10:13 Lidocaine 4% Patch TOPICAL 2 patch DAILY [facility] Administration Metoprolol Tartrate 25 mg 08/01/23 21:00 08/04/23 10:14 Metoprolol Tartrate 25 Mg Tab PO 25 mg BID [facility] Administration Naloxone HCl 0.2 mg 08/01/23 06:57 Naloxone 0.4 Mg/Ml 1 Ml Vial IV Q2M PRN Opioid Reversal Ondansetron HCl 4 mg 08/03/23 16:17 08/04/23 02:06 Ondansetron 4 Mg/2 Ml Vial IVP 4 mg Q6HR PRN Administration Nausea And Vomiting Pantoprazole Sodium 40 mg 08/01/23 09:00 08/04/23 10:14 Pantoprazole 40 Mg/10 Ml Vial IV 40 mg DAILY [facility] Administration Theophylline 600 mg 08/01/23 21:00 08/03/23 20:14 Theophylline 24 Hour 200 Mg Cap.Er.24h PO Not Given HS [facility] Intake and Output 08/03/23 08/04/23 08/04/23 22:59 06:59 14:59 Intake Total 1025 Output Total 550 1950 Balance 475 -2419 Intake: Intake, IV Titration 1025 Amount Ampicillin-Sulbactam 3 gm 100 In Sodium Chloride 0.9% 100 ml @ 200 mls/hr IVPB Q8HR [facility] Rx#:[id number] Piperacillin-Tazobactam 3 25 .375 gm In Sodium Chloride 0.9% 100 ml @ 25 mls/hr IVPB Q8HR [facility] Rx# :[id number] Sodium Chloride 0.9% 1, 900 000 ml @ 75 mls/hr IV . [id number] [facility] Rx#:[id number] Output: Gastric Drainage 550 1600 Post Void Residual 350 Other: Voiding Method Toilet Toilet Urinal # Voids 3 1 08/03/23 17:09 08/02/23 10:41
--- NOTE | 2023-08-04 14:48 | P.CNPUL ---
History of Present Illness Consult date: 08/04/23 Requesting physician: Kevin Griffin Reason for consult: other (Possible ICU transfer) Chief complaint: Abdominal pain History of present illness: This is a 83-year-old male patient with a known history of coronary artery disease with previous stent placement, dementia, hypertension, hyperlipidemia, hypothyroidism, non-smoker who presented here to the emergency room on 08/01/2023 with abdominal pain. He had been followed by surgical services. He did have a nasogastric tube which had approximately 2100 cc output once put in. However the patient inadvertently pulled it out last night. Today he had developed increased abdominal discomfort, tachycardia and shortness of breath. We were consulted for possible transfer to the ICU. He is seen today on the regular medical floor. He is awake and alert. He denies any pain at rest. He is tender to palpation. He is tachycardic, sinus. Currently afebrile. Continue O2 saturations in the mid 90s on 3 L/min per nasal cannula. Blood pressure stable. Blood cultures reveal no growth. White count 8.5. Hemoglobin 12.6. Platelets 373. Sodium 139. Potassium 4.6. Bicarb 14. BUN 34. Creatinine 3.11. Glucose 88. Amylase 73. Lipase 49. CT scan of the abdomen today revealed bowel obstruction pattern. Small amount of free fluid. Chest x-ray reveals no acute cardiopulmonary process. A nasogastric tube has been reinserted and in good position. He is currently on Zosyn. Review of Systems REVIEW OF SYSTEMS: CONSTITUTIONAL: Denies any recent significant weight loss or weight gain. EYES: Denies change in vision. EARS, NOSE, MOUTH, THROAT: Denies headaches, denies sore throat. CARDIOVASCULAR: Denies chest pain, palpitations or syncopal episodes. RESPIRATORY: Denies shortness of breath, cough, congestion or hemoptysis. GASTROINTESTINAL: Positive for abdominal pain. GENITOURINARY: Denies hematuria, denies infections. MUSKULOSKELETAL: Denies pain, denies swelling. INTEGUMENTARY: Denies rash, denies eczema. NEUROLOGICAL: Denies recent memory loss, no recent seizure activity. PSYCHIATRIC: Denies anxiety, denies depression. HEMATOLOGIC/LYMPHATIC: Denies anemia, denies enlarged lymph nodes. Past Medical History Past Medical History: Coronary Artery Disease (CAD), COPD, Dementia, GERD/Reflux, Hyperlipidemia, Hypertension Additional Past Medical History / Comment(s): dysphagia, states some memory loss History of Any Multi-Drug Resistant Organisms: None Reported Past Surgical History: Cholecystectomy, Heart Catheterization With Stent Additional Past Surgical History / Comment(s): corbin cataracts, EGD Past Anesthesia/Blood Transfusion Reactions: No Reported Reaction Date of Last Stent Placement:: unknown Past Psychological History: No Psychological Hx Reported Smoking Status: Never smoker Past Alcohol Use History: None Reported Past Drug Use History: None Reported - Past Family History Mother Family Medical History: Cancer Father Family Medical History: Cancer Medications and Allergies Home Medications Medication Instructions Recorded Confirmed Type Metoprolol Tartrate 25 mg PO BID 05/27/17 08/01/23 History Montelukast [Singulair] 10 mg PO DAILY 05/27/17 08/01/23 History Theophylline 12 Hour [Silvio-Dur] 300 mg PO BID 05/27/17 08/01/23 History Atorvastatin [Lipitor] 80 mg PO HS 11/22/19 08/01/23 History Famotidine [Pepcid] 20 mg PO BID 11/22/19 08/01/23 History Levothyroxine Sodium [Synthroid] 50 mcg PO DAILY 11/22/19 08/01/23 History Donepezil [Aricept] 10 mg PO HS 03/15/23 08/01/23 History Losartan [Cozaar] 50 mg PO DAILY 03/15/23 08/01/23 History Memantine [Namenda] 10 mg PO BID 03/15/23 08/01/23 History Budesonide-Formot 160-4.5 Mcg 2 puff INHALATION RT-BID #1 each 03/19/23 08/01/23 Rx [Symbicort 160-4.5 Mcg Inhaler] Ipratropium-Albuterol Nebulize 3 ml INHALATION RT-QID #120 each 03/19/23 08/01/23 Rx [Duoneb 0.5 mg-3 mg/3 ml Soln] Albuterol Sulfate [Albuterol 2 puff INHALATION RT-QID PRN 04/08/23 08/01/23 History Sulfate Hfa] Aspirin EC [Ecotrin Low Dose] 81 mg PO DAILY 08/01/23 08/01/23 History Triamcinolone 0.1% Cream [Kenalog 1 applicatio TOPICAL BID 08/01/23 08/01/23 History 0.1% Cream] Allergies Allergy/AdvReac Type Severity Reaction Status Date / Time ciprofloxacin [From Cipro] Allergy Rash/Hives Verified 08/01/23 11:53 levofloxacin [From Levaquin] Allergy Unknown Verified 08/01/23 11:53 rofecoxib Allergy Unknown Verified 08/01/23 11:53 sulfamethoxazole Allergy Swelling Verified 08/01/23 11:53 [From Bactrim] trimethoprim [From Bactrim] Allergy Swelling Verified 08/01/23 11:53 fluconazole [From Diflucan] AdvReac DIzziness Verified 08/01/23 11:53 & Giddiness Physical Exam Vitals: Vital Signs Temp Pulse Pulse Resp BP BP Pulse Ox 08/04/23 13:52 98.8 F 130 H 18 135/68 96 08/04/23 13:15 98.0 F 125 H 20 105/62 97 08/04/23 08:15 139 H 92 L 08/04/23 07:54 92 L 08/04/23 07:52 97.9 F 143 H 20 109/65 88 L 08/04/23 02:45 120 H 08/04/23 02:00 98.4 F 139 H 16 123/82 97 08/03/23 20:15 120 H 08/03/23 20:04 124 H 08/03/23 20:00 98.1 F 132 H 16 103/68 95 08/03/23 15:45 100.1 F H 132 H 132 H 18 159/97 08/03/23 15:36 121 H 08/03/23 14:38 100.1 F H 56 L 18 173/91 99 Intake and Output 08/03/23 08/04/23 08/04/23 22:59 06:59 14:59 Intake Total 1025 Output Total 550 1950 Balance 475 -1950 Intake: Intake, IV Titration 1025 Amount Ampicillin-Sulbactam 3 gm 100 In Sodium Chloride 0.9% 100 ml @ 200 mls/hr IVPB Q8HR [facility] Rx#:[id number] Piperacillin-Tazobactam 3 25 .375 gm In Sodium Chloride 0.9% 100 ml @ 25 mls/hr IVPB Q8HR [facility] Rx# :[id number] Sodium Chloride 0.9% 1, 900 000 ml @ 75 mls/hr IV . [id number] [facility] Rx#:[id number] Output: Gastric Drainage 550 1600 Post Void Residual 350 Other: Voiding Method Toilet Toilet Urinal # Voids 3 1 GENERAL EXAM: Alert, poor historian, 83-year-old male patient, on 3 L nasal cannula, fairly comfortable in no apparent distress. HEAD: Normocephalic. EYES: Normal reaction of pupils, equal size. NOSE: Clear with pink turbinates. THROAT: No erythema or exudates. NECK: No masses, no JVD. CHEST: No chest wall deformity. LUNGS: Equal air entry with no crackles, wheeze, rhonchi or dullness. CVS: S1 and S2 normal with no audible murmur, regular rhythm. ABDOMEN: Distended, pain on palpation, no hepatosplenomegaly, hypoactive bowel sounds. SPINE: No scoliosis or deformity SKIN: No rashes CENTRAL NERVOUS SYSTEM: No focal deficits, tone is normal in all 4 extremities. EXTREMITIES: There is no peripheral edema. No clubbing, no cyanosis. Peripheral pulses are intact. Results - Laboratory Findings CBC and BMP: 08/04/23 07:15 08/04/23 07:15 PT/INR, D-dimer PT 10.4 sec (10.0-12.5) 08/01/23 05:40 INR 0.9 (<1.2) 08/01/23 05:40 Abnormal lab findings: Abnormal Labs 08/01/23 08/01/23 08/01/23 05:40 05:40 05:40 WBC 11.3 H RBC 4.08 L Hgb 12.2 L Hct 36.1 L RDW MPV Neutrophils # 8.5 H Lymphocytes # Monocytes # Eosinophils # Chloride 109 H Carbon Dioxide 21 L BUN 29 H Creatinine 1.59 H Est GFR (CKD-EPI) Plasma Lactic Acid Lawson 2.2 H* Total Protein Albumin Amylase 111 H Lipase 352 H 08/02/23 08/02/23 08/02/23 06:37 06:37 10:41 WBC RBC 3.84 L Hgb 11.1 L Hct 33.9 L RDW 14.6 H MPV 8.9 L Neutrophils # Lymphocytes # Monocytes # Eosinophils # Chloride 109 H Carbon Dioxide 21 L BUN 22 H Creatinine Est GFR (CKD-EPI) 49 L Plasma Lactic Acid Lawson Total Protein 5.4 L Albumin 3.4 L Amylase Lipase 08/03/23 08/04/23 08/04/23 17:09 07:15 07:15 WBC 15.5 H RBC 4.23 L 4.38 L Hgb 12.3 L 12.6 L Hct 37.6 L 37.9 L RDW 14.6 H MPV 9.2 L Neutrophils # 13.8 H Lymphocytes # 0.7 L 0.54 L Monocytes # 1.06 H Eosinophils # 0.01 L Chloride Carbon Dioxide 14 L BUN 34 H Creatinine 3.11 H Est GFR (CKD-EPI) Plasma Lactic Acid Lawson Total Protein Albumin Amylase Lipase - Diagnostic Findings Chest x-ray: image reviewed Assessment and Plan Assessment: Abdominal pain in a patient found to have a bowel obstruction and small amount of free fluid nasogastric tube in place, on Zosyn Tachycardia secondary to above initiated on Cardizem drip Acute hypoxemic respiratory failure secondary to above, history of COPD but is a lifelong non-smoker History of coronary disease with previous stent placement Hypertension Hyperlipidemia Hypothyroidism Dementia Lifelong non-smoker Plan: The patient was seen and evaluated Chest x-ray, CT scan of the abdomen, labs and medications reviewed No need for ICU admission at this time Could be transferred to selective care due to the tachycardia Initiated on a Cardizem drip Chest x-ray shows no acute pulmonary process Nasogastric tube is reinserted Surgical services are following CODE STATUS should be addressed We will continue to follow and make further recommendations based on his clinical status I have personally seen and examined the patient, performed the documentation and the assessment and plan as written. Number of minutes spent on the visit: 20.
[2023-08-04] MEDS: DILTIAZEM 125 MG in SODIUM CHLORIDE 0.9% 100 ML IV SCH (14:52)
[2023-08-04] MEDS: SODIUM CHLORIDE 0.9% 500 ML 500 ML IV ONE (14:52)
[2023-08-04] MEDS: DILTIAZEM DRIP BOLUS FROM BAG 1 MG SOLN IV ONE (14:53)
[2023-08-04 20:18] LABS: Glucose,Whole Blood 76 mg/dL (70-110)
[2023-08-04] MEDS: PIPERACILLIN-TAZOBACTAM 3.375 GM in SODIUM CHLORIDE 0.9% 100 ML IVPB SCH (21:37)
[2023-08-05 06:14] LABS: Glucose,Whole Blood 89 mg/dL (70-110)
--- NOTE | 2023-08-05 08:23 | P.PN ---
Subjective Progress Note Date: 08/04/23 CHIEF COMPLAINT: Abdominal pain HISTORY OF PRESENT ILLNESS: The patient is a 83-year-old male admitted with lower abdominal pain. Earlier today, patient became tachycardic with increased abdominal distention after undergoing small bowel follow-through. Patient had pulled his nasogastric tube. Patient was transferred from the medical floor to the stepdown floor. Family is at bedside. Nasogastric tube was reinserted by the nursing team. Patient reports improvement of his abdominal pain after p lacement nasogastric tube with over 300 cc out, bilious content. ROS: No bowel movements. No fevers or chills. No new chest pain. PHYSICAL EXAM: VITAL SIGNS: Reviewed CONSTITUTIONAL: Well developed and in no acute distress. EYES: Conjuctivae without sclera icterus. Extraocular movements grossly intact. HEAD, EARS, NOSE, THROAT: Moist buccal mucosa. Head is atraumatic, normocephalic. Hears conversational speech. No nasal drainage. RESPIRATORY: Non-labored respirations and equal bilateral excursions. CARDIOVASCULAR: Palpable 2+ radial pulses. ABDOMEN: No peritonitis. Mild generalized tenderness, decreased. Decreased abdominal distention. MUSCULOSKELETAL: No gross deformity of the lower extremities noted. No clubbing. No cyanosis. SKIN: Good skin turgor. Well perfused. NEUROLOGIC: Cranial nerves II through XII grossly intact. No focal or lateralizing signs. PSYCH: Alert and oriented to person. CLINICAL LABS: Reviewed. WBC down to 15.5-8.5. Hemoglobin stable 12.3-12.6. Creatinine elevated 1.24-3.1, acute onset renal failure STUDIES: Small bowel follow-through independently reviewed demonstrating contrast throughout the small intestine with moderate stool burden. Persistent mild dilation of small bowel within the mid abdomen. This is my independent interpretation. Chest x-ray independently reviewed from this morning demonstrates no pneumothorax. Stomach with distention. CT of the abdomen pelvis independently reviewed demonstrates no free air and fin dings consistent with bowel obstruction. Moderate stool burden. This is my independent interpretation. EKG: Reviewed with supraventricular tachycardia ASSESSMENT: 1. Small bowel obstruction 2. Supraventricular tachycardia 3. Acute onset renal failure PLAN: 1. He has acute onset renal failure recommend management with nephrology 2. With his recent cardiac event, cardiac risk assessment anticipated for potential surgical intervention due to bowel obstruction 3. Extensive discussion with family occluding patient includes continuing and maintaining nasogastric tube for appropriate decompression for his bowel obstruction 4. PICC line and TPN for extended n.p.o. status beyond 7 days 5. Surgical intervention pending anticipated cardiac risk assessment, PICC line with TPN and clinical course 6. Care plan was reviewed and discussed with patient and family. And all questions were addressed Objective - Vital Signs Vital signs: Vital Signs Temp 99.2 F 08/05/23 04:00 Pulse 101 H 08/05/23 04:00 Resp 18 08/05/23 04:00 BP 112/67 08/05/23 04:00 Pulse Ox 97 08/05/23 04:00 FiO2 Intake & Output 08/04/23 08/05/23 08/05/23 18:59 06:59 18:59 Intake Total 10 20 Output Total 575 Balance -565 20 Intake: IV 10 20 Invasive Line 3 10 20 Output: Gastric Drainage 250 Urine 325 Other: Voiding Method Indwelling Catheter Indwelling Catheter - Labs CBC & Chem 7: 08/04/23 07:15 08/04/23 07:15 Labs: Abnormal Lab Results - Last 24 Hours (Table) 08/04/23 08/04/23 Range/Units 07:15 07:15 RBC 4.38 L (4.40-5.60) X 10*6/uL Hgb 12.6 L (13.0-17.0) g/dL Hct 37.9 L (39.6-50.0) % RDW 14.6 H (11.5-14.5) % MPV 9.2 L (9.5-12.2) [place] Lymphocytes # 0.54 L (0.90-5.00) X 10*3/uL Monocytes # 1.06 H (0.20-1.00) X 10*3/uL Eosinophils # 0.01 L (0.04-0.35) X 10*3/uL Carbon Dioxide 14 L (22-30) mmol/L BUN 34 H (9-20) mg/dL Creatinine 3.11 H (0.66-1.25) mg/dL Microbiology - Last 24 Hours (Table) 08/03/23 17:13 Blood Culture - Preliminary Blood 08/03/23 17:09 Blood Culture - Preliminary Blood 08/01/23 07:50 Blood Culture - Preliminary Blood 08/01/23 07:35 Blood Culture - Preliminary Blood
[2023-08-05] MEDS: METOPROLOL TARTRATE 5 MG/5 ML VIAL IVP SCH (08:37)
[2023-08-05] MEDS: DEXTROSE 5%-0.9% NACL 1,000 ML IV SCH (09:05)
--- NOTE | 2023-08-05 09:35 | P.PN ---
Subjective Progress Note Date: 08/05/23 Principal diagnosis: Small bowel obstruction since admission through the ER with the consult with Dr. Pinzon surgical Severe abdominal pain, n.p.o. Sinus tachycardia Shortness of breath with COPD. History of coronary artery disease Cognitive function impairment. Progress note Date of service 08/05/[address] Griffin Patient seen today [id number] and discussed with his nurse Jonna. Patient is awake alert complaining of abdominal pain severe /10 and patient n. p.o. Patient become dehydrated with the development of acute kidney injury added to his cardiac arrhythmia with sinus tachycardia and questionable cardiac compromised However currently blood pressure is stable and he is on currently has him drip. Cardiology consultation and follow-up by Dr. Aviels Patient also seen by pulmonary and critical care Dr. Schreiber. With the elevation of creatinine consultation with nephrology Dr. Dee and Dr. Cervantes who is on-call to see the patient His blood sugar has been dropped and no calorie for the last few days since he is admission n.p.o. and will start them on D5.9 normal saline same rate he was 125 cc an hour until seen by nephrology. On exam: His vital signs are stable now. And seen by Dr. Pinzon per the nursing staff she decided for the operative day on August 08, 2023. Patient complaining of abdominal pain severe Head no changes he had left facial drooping and this old as well as left eyelid drooping and this old able to speak and swallow Neck was supple no JVD no thyromegaly no lymphadenopathy. Chest he has increased anteroposterior diameter, he has scattered rales pulmonary following Heart he had sinus tachycardia questionable atrial fibs and he is on currently has not drip followed by cardiology Renal patient has developed acute kidney injury and consultation with nephrology Dr. Dee/Dr. Cervantes. Abdomen he has severe abdominal pain not tolerated the touch with hand or any pressure. He had a Dow catheter Extremities no edema positive pulses Assessment: And plan 1. Patient with severe abdominal pain small bowel obstruction and no feeding 2. Patient deteriorating status general condition 3. Following with nephrology, cardiology, pulmonary. 4. Patient on oxygen with underlying desaturation and he was moved from [facility] fifth floor to [facility] [address] [place] due to and his stability and his critical condition with the worsening development. 5. Will consult infectious disease as well. Objective - Vital Signs Vital signs: Vital Signs Temp 97.5 F L 08/05/23 08:44 Pulse 100 08/05/23 08:44 Resp 18 08/05/23 08:44 BP 127/66 08/05/23 08:44 Pulse Ox 94 L 08/05/23 08:44 FiO2 Intake & Output 08/04/23 08/05/23 08/05/23 18:59 06:59 18:59 Intake Total 10 20 101.167 Output Total 575 Balance -565 20 101.167 Intake: IV 10 20 10 Invasive Line 3 10 20 10 Intake, IV Titration 91.167 Amount Diltiazem 125 mg In 91.167 Sodium Chloride 0.9% 100 ml @ 5 MG/HR 5 mls/hr IV .Q24H [facility] Rx#:[id number] Output: Gastric Drainage 250 Urine 325 Other: Voiding Method Indwelling Catheter Indwelling Catheter - Labs CBC & Chem 7: 08/04/23 07:15 08/04/23 07:15 Labs: Abnormal Lab Results - Last 24 Hours (Table) 08/04/23 08/04/23 Range/Units 07:15 07:15 RBC 4.38 L (4.40-5.60) X 10*6/uL Hgb 12.6 L (13.0-17.0) g/dL Hct 37.9 L (39.6-50.0) % RDW 14.6 H (11.5-14.5) % MPV 9.2 L (9.5-12.2) FL Lymphocytes # 0.54 L (0.90-5.00) X 10*3/uL Monocytes # 1.06 H (0.20-1.00) X 10*3/uL Eosinophils # 0.01 L (0.04-0.35) X 10*3/uL Carbon Dioxide 14 L (22-30) mmol/L BUN 34 H (9-20) mg/dL Creatinine 3.11 H (0.66-1.25) mg/dL Microbiology - Last 24 Hours (Table) 08/03/23 17:13 Blood Culture - Preliminary Blood 08/03/23 17:09 Blood Culture - Preliminary Blood 08/01/23 07:50 Blood Culture - Preliminary Blood 08/01/23 07:35 Blood Culture - Preliminary Blood
[2023-08-05 11:52] LABS: Glucose,Whole Blood 81 mg/dL (70-110)
--- NOTE | 2023-08-05 12:15 | P.NPCON ---
History of Present Illness - Reason for Consult acute renal failure, chronic renal failure - History of Present Illness Reason for consultation: Acute kidney injury on chronic kidney disease History of present illness: Patient is a 83-year-old male seen in renal consultation for acute kidney injury on chronic kidney disease. Patient has chronic kidney disease stage IIIb with baseline creatinine 1.3-1.5 secondary to nephrosclerosis. Patient is alert and oriented x 1 and is not a very reliable historian. Patient's creatinine this admission was as low as 1.24 and is up to 3.11 today. Patient came to the hospital on August 01, 2023 due to abdominal pain which was getting worse over the course of 24 hours. Patient denied any problems with urination. Patient was subsequently diagnosed with partial small bowel obstruction and is being followed by surgery. He currently has NG tube. He is currently NPO. Patient also went into atrial tachycardia and is currently maintained on Cardizem drip. He has a Dow catheter and has been voiding. He was on losartan outpatient which is currently held. Blood pressure fairly stable this admission. I do not see any nonsteroidals on his home medication list. Vital signs are stable. General: No acute distress. HEENT: Head exam is unremarkable. NG tube noted. LUNGS: No audible rhonchi or wheezes. HEART: Irregular rate and rhythm. ABDOMEN: Mild generalized tenderness. EXTREMITITES: No edema. Past Medical History Past Medical History: Coronary Artery Disease (CAD), COPD, Dementia, GERD/Reflux, Hyperlipidemia, Hypertension Additional Past Medical History / Comment(s): dysphagia, states some memory loss History of Any Multi-Drug Resistant Organisms: None Reported Past Surgical History: Cholecystectomy, Heart Catheterization With Stent Additional Past Surgical History / Comment(s): corbin cataracts, EGD Past Anesthesia/Blood Transfusion Reactions: No Reported Reaction Date of Last Stent Placement:: unknown Past Psychological History: No Psychological Hx Reported Smoking Status: Never smoker Past Alcohol Use History: None Reported Past Drug Use History: None Reported - Past Family History Mother Family Medical History: Cancer Father Family Medical History: Cancer Medications and Allergies Home Medications Medication Instructions Recorded Confirmed Type Metoprolol Tartrate 25 mg PO BID 05/27/17 08/01/23 History Montelukast [Singulair] 10 mg PO DAILY 05/27/17 08/01/23 History Theophylline 12 Hour [Silvio-Dur] 300 mg PO BID 05/27/17 08/01/23 History Atorvastatin [Lipitor] 80 mg PO HS 11/22/19 08/01/23 History Famotidine [Pepcid] 20 mg PO BID 11/22/19 08/01/23 History Levothyroxine Sodium [Synthroid] 50 mcg PO DAILY 11/22/19 08/01/23 History Donepezil [Aricept] 10 mg PO HS 03/15/23 08/01/23 History Losartan [Cozaar] 50 mg PO DAILY 03/15/23 08/01/23 History Memantine [Namenda] 10 mg PO BID 03/15/23 08/01/23 History Budesonide-Formot 160-4.5 Mcg 2 puff INHALATION RT-BID #1 each 03/19/23 08/01/23 Rx [Symbicort 160-4.5 Mcg Inhaler] Ipratropium-Albuterol Nebulize 3 ml INHALATION RT-QID #120 each 03/19/23 08/01/23 Rx [Duoneb 0.5 mg-3 mg/3 ml Soln] Albuterol Sulfate [Albuterol 2 puff INHALATION RT-QID PRN 04/08/23 08/01/23 History Sulfate Hfa] Aspirin EC [Ecotrin Low Dose] 81 mg PO DAILY 08/01/23 08/01/23 History Triamcinolone 0.1% Cream [Kenalog 1 applicatio TOPICAL BID 08/01/23 08/01/23 History 0.1% Cream] Allergies Allergy/AdvReac Type Severity Reaction Status Date / Time ciprofloxacin [From Cipro] Allergy Rash/Hives Verified 08/01/23 11:53 levofloxacin [From Levaquin] Allergy Unknown Verified 08/01/23 11:53 rofecoxib Allergy Unknown Verified 08/01/23 11:53 sulfamethoxazole Allergy Swelling Verified 08/01/23 11:53 [From Bactrim] trimethoprim [From Bactrim] Allergy Swelling Verified 08/01/23 11:53 fluconazole [From Diflucan] AdvReac DIzziness Verified 08/01/23 11:53 & Giddiness Physical Exam Vitals: Vital Signs Temp Pulse Resp BP BP Pulse Ox 08/05/23 08:44 97.5 F L 100 18 127/66 94 L 08/05/23 04:00 99.2 F 101 H 18 112/67 97 08/05/23 02:00 107 H 18 08/05/23 00:00 98.8 F 107 H 18 112/65 97 08/04/23 20:00 100.4 F H 131 H 18 109/68 94 L 08/04/23 16:43 97.4 F L 122 H 20 132/67 95 08/04/23 13:52 98.8 F 130 H 18 135/68 96 08/04/23 13:15 98.0 F 125 H 20 105/62 97 Intake and Output 08/04/23 08/05/23 08/05/23 22:59 06:59 14:59 Intake Total 20 10 101.167 Output Total 575 Balance -555 10 101.167 Intake: IV 20 10 10 Invasive Line 3 20 10 Invasive Line 4 10 Intake, IV Titration 91.167 Amount Diltiazem 125 mg In 91.167 Sodium Chloride 0.9% 100 ml @ 5 MG/HR 5 mls/hr IV .Q24H [facility] Rx#:[id number] Output: Gastric Drainage 250 Urine 325 Other: Voiding Method Indwelling Catheter Indwelling Catheter Indwelling Catheter Weight 77.111 kg Results - Lab Results Most recent lab results Calcium 8.9 mg/dL (8.4-10.2) 08/04/23 07:15 Phosphorus 3.9 mg/dL (2.4-5.1) 08/02/23 06:37 Magnesium 1.7 mg/dL (1.6-2.3) 08/04/23 07:15 08/04/23 07:15 08/04/23 07:15 Assessment and Plan Plan: Assessment: 1. Acute kidney injury secondary to hemodynamic ATN. Creatinine 3.11 as of yesterday. No hydronephrosis noted on CAT scan. 2. Chronic kidney disease stage IIIb with baseline creatinine 1.3-1.5 secondary to nephrosclerosis. 3. Partial small bowel obstruction. Currently has NG tube. Surgery following. 4. Metabolic acidosis secondary to acute kidney injury and IV fluids. 5. Atrial tachycardia maintained on Cardizem drip. Cardiology following. Plan: Maintain IV fluids. Decrease rate to 75 cc an hour once TPN started. Check urinalysis. Avoid nephrotoxins. Follow-up morning labs. Continue to monitor renal function and urine output. Follow-up echocardiogram. Thank you for the consultation. I will continue to follow the patient with you during his hospital stay.
[2023-08-05 12:42] LABS: Basophils # (A) 0.1 k/uL (0-0.2); Basophils % (A) 1 %; Eosinophils # (A) 0.1 k/uL (0-0.7); Eosinophils % (A) 1 %; HCT 37.1 % (39.0-53.0); HGB 11.3 gm/dL (13.0-17.5); Lymphocytes # (A) 0.5 k/uL (1.0-4.8); Lymphocytes % (A) 5 %; MCH 28.5 pg (25.0-35.0); MCHC 30.6 g/dL (31.0-37.0); MCV 93.3 fL (80.0-100.0); Mean Platelet Volume 7.3; Monocytes # (A) 0.6 k/uL (0-1.0); Monocytes % (A) 6 %; Neutrophils # (A) 8.4 k/uL (1.3-7.7); Neutrophils % (A) 85 %; Platelet Count 401 k/uL (150-450); RBC 3.97 m/uL (4.30-5.90); RDW 14.2 % (11.5-15.5); WBC 9.9 k/uL (3.8-10.6)
[2023-08-05 12:59] LABS: African American GFR (CKD) 10 (>60 ml/min/1.73 sqM); Anion Gap 22 mmol/L; Blood Urea Nitrogen 69 mg/dL (9-20); Calcium 8.3 mg/dL (8.4-10.2); Carbon Dioxide 13 mmol/L (22-30); Chloride 108 mmol/L (98-107); Glucose 88 mg/dL (74-99); Magnesium 2.2 mg/dL (1.6-2.3); Non-African American GFR(CKD) 9 (>60 ml/min/1.73 sqM); Potassium 4.5 mmol/L (3.5-5.1); Sodium 143 mmol/L (137-145)
--- NOTE | 2023-08-05 13:04 | P.PN ---
Subjective Progress Note Date: 08/05/23 CHIEF COMPLAINT: Abdominal pain HISTORY OF PRESENT ILLNESS: The patient is a 83-year-old male admitted with lower abdominal pain. Additional imaging including transfer to the stepdown unit was performed due to increased abdominal pain and tachycardia. This morning, he reports moderate improvement of abdominal pain. He has no further abdominal distention. He is passing flatus. Incidentally, patient now has elevated creatinine, acute renal failure. ROS: No bowel movements. No fevers or chills. No new chest pain. PHYSICAL EXAM: VITAL SIGNS: Reviewed CONSTITUTIONAL: Well developed and in no acute distress. EYES: Conjuctivae without sclera icterus. Extraocular movements grossly intact. HEAD, EARS, NOSE, THROAT: Moist buccal mucosa. Head is atraumatic, normocephalic. Hears conversational speech. NG tube present. RESPIRATORY: Non-labored respirations and equal bilateral excursions. CARDIOVASCULAR: Palpable 2+ radial pulses. ABDOMEN: Nondistended. Nontender. MUSCULOSKELETAL: No gross deformity of the lower extremities noted. No clubbing. No cyanosis. Tender posterior thighs. SKIN: Good skin turgor. Well perfused. NEUROLOGIC: Cranial nerves II through XII grossly intact. No focal or lateralizing signs. PSYCH: Alert and oriented to person. CLINICAL LABS: Reviewed. WBC normal. Creatinine worsening 3.1 now 5.6 consistent with acute renal failure, baseline creatinine 1.24 during hospitalization ASSESSMENT: 1. Small bowel obstruction due to adhesions with abdominal pain 2. Supraventricular tachycardia 3. Acute onset renal failure PLAN: 1. He has a Dow catheter. Nephrology seeing due to acute onset renal failure 2. At this time, echocardiogram pending due to new supraventricular tachycardia and possible surgical invention 3. Anticipated surgical invention Tuesday for exploratory laparotomy should he demonstrate clinical decline or no improvement. 4. May have ice chips and popsicles in the interim 5. Repeat abdominal x-ray tomorrow for clinical progression of bowel obstruction 6. TPN and PICC line in the interim for prolonged n.p.o. status Objective - Vital Signs Vital signs: Vital Signs Temp 97.5 F L 08/05/23 08:44 Pulse 100 08/05/23 08:44 Resp 18 08/05/23 08:44 BP 127/66 08/05/23 08:44 Pulse Ox 94 L 08/05/23 08:44 FiO2 Intake & Output 03/28/24 03/29/24 03/29/24 18:59 06:59 18:59 Intake Total 10 20 101.167 Output Total 575 Balance -565 20 101.167 Weight 77.111 kg Intake: IV 10 20 10 Invasive Line 3 10 20 Invasive Line 4 10 Intake, IV Titration 91.167 Amount Diltiazem 125 mg In 91.167 Sodium Chloride 0.9% 100 ml @ 5 MG/HR 5 mls/hr IV .Q24H [facility] Rx#:[id number] Output: Gastric Drainage 250 Urine 325 Other: Voiding Method Indwelling Catheter Indwelling Catheter Indwelling Catheter - Labs CBC & Chem 7: 08/05/23 11:42 08/05/23 11:42 Labs: Abnormal Lab Results - Last 24 Hours (Table) 08/05/23 Range/Units 11:42 RBC 3.97 L (4.30-5.90) m/uL Hgb 11.3 L (13.0-17.5) gm/dL Hct 37.1 L (39.0-53.0) % MCHC 30.6 L (31.0-37.0) g/dL Neutrophils # 8.4 H (1.3-7.7) k/uL Lymphocytes # 0.5 L (1.0-4.8) k/uL Microbiology - Last 24 Hours (Table) 08/03/23 17:13 Blood Culture - Preliminary Blood 08/03/23 17:09 Blood Culture - Preliminary Blood 08/01/23 07:50 Blood Culture - Preliminary Blood 08/01/23 07:35 Blood Culture - Preliminary Blood
[2023-08-05] MEDS: THIAMINE 100 MG/ML 2 ML VIAL IVP SCH (13:56)
--- NOTE | 2023-08-05 14:38 | P.PN ---
Subjective Progress Note Date: 08/05/23 HISTORY OF PRESENT ILLNESS: This is a 83-year-old male with a past medical history significant for coronary artery disease with previous angioplasty of the LAD in 2007, hypertension, hyperlipidemia, COPD, hypothyroidism, and dementia. Patient used to follow in the office with Dr. Worthington but has not been seen since May 2019. We have been asked to see the patient in consultation for hypertension. Patient examined at the bedside. Patient currently denies chest pain or pressure. He denies shortness of breath. He reports abdominal pain. Patient pulled out his NG tube this morning and nursing is attempting to reinsert NG tube at this time. Patient is n.p.o. Bedside telemetry reveals sinus tachycardia/atrial tachycardia with a heart rate around 120. DIAGNOSTICS: - EKG reveals sinus tachycardia versus atrial tachycardia with a heart of 147. No signs of acute ischemia. Incomplete right bundle branch block.. - Chest xray negative for acute process. - Laboratory data: WBC 15.5. Hemoglobin 12.3. Platelet count 383. Sodium 139. Potassium 4.2. BUN 22. Creatinine 1.24. - Current home cardiac medications include aspirin 81 mg daily, Lipitor 80 mg at night, metoprolol tartrate 25 mg twice a day, losartan 50 mg daily. - Most recent echocardiogram obtained in March 2023 revealed ejection fraction 55 to 60%, mild mitral and aortic regurgitation 08/04 Patient is seen today on the cardiac stepdown unit. Telemetry is sinus rhythm running [id number], blood pressure 112/60, pulse ox 94% on 3 L nasal cannula. Repeat blood work reveals hemoglobin 11.3. BUN 69 creatinine 5.6. Potassium 4.5. NG tube was inserted yesterday with large volume return. PHYSICAL EXAM: VITAL SIGNS: Reviewed. GENERAL: Well-developed in no acute distress. HEENT: Head is normocephalic. Pupils are equal, round. Sclerae anicteric. Neck supple. No JVD or thyromegaly LUNGS: Respirations even and unlabored. Lungs essentially clear to auscultation bilaterally. HEART: Tachycardic. Regular rate and rhythm. S1 and S2 heard. EXTREMITIES: No clubbing or cyanosis. Peripheral pulses intact. No lower extre mity edema NEUROLOGIC: Awake and alert. Oriented x 3. ASSESSMENT: Abdominal pain Small bowel obstruction Possible diverticulitis Sinus tachycardia/atrial tachycardia, likely physiological response due to underlying acute illness Acute renal failure Coronary artery disease with previous angioplasty of the LAD in 2007 Hypertension Hyperlipidemia COPD Hypothyroidism Dementia PLAN: Patient currently NPO. Continue telemetry monitoring Continue IV Cardizem at 5mg/hr Increase frequency of metoprolol IV 5 mg every 4 hours for heart rate greater than 110 Further recommendations pending patient course Nurse practitioner note has been reviewed by physician. Signing provider agrees with the documented findings, assessment, and plan of care documented by BOTTOM BLEACHER as a scribe. All Objective - Vital Signs Vital signs: Vital Signs Temp 99.2 F 08/05/23 04:00 Pulse 101 H 08/05/23 04:00 Resp 18 08/05/23 04:00 BP 112/67 08/05/23 04:00 Pulse Ox 97 08/05/23 04:00 FiO2 Intake & Output 08/04/23 08/05/23 08/05/23 18:59 06:59 18:59 Intake Total 10 20 Output Total 575 Balance -565 20 Intake: IV 10 20 Invasive Line 3 10 20 Output: Gastric Drainage 250 Urine 325 Other: Voiding Method Indwelling Catheter Indwelling Catheter - Labs CBC & Chem 7: 08/05/23 11:42 08/05/23 11:42 Labs: Abnormal Lab Results - Last 24 Hours (Table) 08/04/23 08/04/23 Range/Units 07:15 07:15 RBC 4.38 L (4.40-5.60) X 10*6/uL Hgb 12.6 L (13.0-17.0) g/dL Hct 37.9 L (39.6-50.0) % RDW 14.6 H (11.5-14.5) % MPV 9.2 L (9.5-12.2) FL Lymphocytes # 0.54 L (0.90-5.00) X 10*3/uL Monocytes # 1.06 H (0.20-1.00) X 10*3/uL Eosinophils # 0.01 L (0.04-0.35) X 10*3/uL Carbon Dioxide 14 L (22-30) mmol/L BUN 34 H (9-20) mg/dL Creatinine 3.11 H (0.66-1.25) mg/dL Microbiology - Last 24 Hours (Table) 08/03/23 17:13 Blood Culture - Preliminary Blood 08/03/23 17:09 Blood Culture - Preliminary Blood 08/01/23 07:50 Blood Culture - Preliminary Blood 08/01/23 07:35 Blood Culture - Preliminary Blood
--- NOTE | 2023-08-05 16:05 | P.PN ---
Subjective Progress Note Date: 08/05/23 Principal diagnosis: Acute small bowel obstruction This is a 83-year-old male patient with a known history of coronary artery disease with previous stent placement, dementia, hypertension, hyperlipidemia, hypothyroidism, non-smoker who presented here to the emergency room on 08/01/2023 with abdominal pain. He had been followed by surgical services. He did have a nasogastric tube which had approximately 2100 cc output once put in. However the patient inadvertently pulled it out last night. Today he had developed increased abdominal discomfort, tachycardia and shortness of breath. We were consulted for possible transfer to the ICU. He is seen today on the regular [facility] floor. He is awake and alert. He denies any pain at rest. He is tender to palpation. He is tachycardic, sinus. Currently afebrile. Continue O2 saturations in the mid 90s on 3 L/min per nasal cannula. Blood pressure stable. Blood cultures reveal no growth. White count 8.5. Hemoglobin 12.6. Platelets 373. Sodium 139. Potassium 4.6. Bicarb 14. BUN 34. Creatinine 3.11. Glucose 88. Amylase 73. Lipase 49. CT scan of the abdomen today revealed bowel obstruction pattern. Small amount of free fluid. Chest x-ray reveals no acute cardiopulmonary process. A nasogastric tube has been reinserted and in good position. He is currently on Zosyn. Patient was seen and examined today on 08/05/2023, patient is doing much better today compared to the last 2 days, less abdominal pain, no nausea no vomiting, continues to have nasogastric tube in place.WBC count is 9.9 hemoglobin 11.3 basic metabolic profile is normal however his renal functioning is worse with BUN up to 69 creatinine 5.60, and that is being addressed by nephrology on the case. His acute kidney injury is felt to be related to hemodynamic ATN, no hydronephrosis on CT of the abdomen, patient does have history of chronic kidney disease stage IIIb. Patient is on Cardizem drip now for atrial tachycardia. And cardiology is following Objective - Vital Signs Vital signs: Vital Signs Temp 97.6 F 08/05/23 12:53 Pulse 110 H 08/05/23 12:53 Resp 18 08/05/23 12:53 BP 126/65 08/05/23 12:53 Pulse Ox 95 08/05/23 12:53 FiO2 Intake & Output 03/28/24 03/29/24 03/29/24 18:59 06:59 18:59 Intake Total 10 20 121.167 Output Total 575 450 Balance -565 20 -328.833 Weight 77.111 kg Intake: IV 10 20 30 Invasive Line 3 10 20 Invasive Line 4 10 Invasive Line 5 10 Invasive Line 6 10 Intake, IV Titration 91.167 Amount Diltiazem 125 mg In 91.167 Sodium Chloride 0.9% 100 ml @ 5 MG/HR 5 mls/hr IV .Q24H [facility] Rx#:[id number] Output: Gastric Drainage 250 450 Urine 325 Other: Voiding Method Indwelling Catheter Indwelling Catheter Indwelling Catheter - Exam GENERAL EXAM: Revealed 83-year-old white male in no distress, on nasal cannula HEAD: Normocephalic. Atraumatic EYES: Normal reaction of pupils, equal size. NOSE: Clear with pink turbinates. THROAT: No erythema or exudates. NECK: No masses, no JVD. CHEST: No chest wall deformity. LUNGS: Clear bilaterally no rhonchi no wheezes CVS: S1 and S2 normal with no audible murmur, regular rhythm. ABDOMEN: Less distention today, no tenderness no rebound no guarding SPINE: No scoliosis or deformity SKIN: No rashes CENTRAL NERVOUS SYSTEM: Alert and oriented x 3 no gross focal deficit EXTREMITIES: No clubbing edema or cyanosis - Labs CBC & Chem 7: 08/05/23 11:42 08/05/23 11:42 Labs: Abnormal Lab Results - Last 24 Hours (Table) 08/05/23 08/05/23 Range/Units 11:42 11:42 RBC 3.97 L (4.30-5.90) m/uL Hgb 11.3 L (13.0-17.5) gm/dL Hct 37.1 L (39.0-53.0) % MCHC 30.6 L (31.0-37.0) g/dL Neutrophils # 8.4 H (1.3-7.7) k/uL Lymphocytes # 0.5 L (1.0-4.8) k/uL Chloride 108 H (98-107) mmol/L Carbon Dioxide 13 L (22-30) mmol/L BUN 69 H (9-20) mg/dL Creatinine 5.60 H (0.66-1.25) mg/dL Calcium 8.3 L (8.4-10.2) mg/dL Microbiology - Last 24 Hours (Table) 08/03/23 17:13 Blood Culture - Preliminary Blood 08/03/23 17:09 Blood Culture - Preliminary Blood 08/01/23 07:50 Blood Culture - Preliminary Blood 08/01/23 07:35 Blood Culture - Preliminary Blood Assessment and Plan Assessment: Impression: Abdominal pain in a patient found to have a bowel obstruction and small amount of free fluid nasogastric tube in place, on Zosyn Tachycardia secondary to above initiated on Cardizem drip Acute hypoxemic respiratory failure secondary to above, history of COPD but is a lifelong non-smoker History of coronary disease with previous stent placement Hypertension Hyperlipidemia Hypothyroidism Dementia Lifelong non-smoker Recommendation: Continue present supportive care measures Continue nasogastric tube to suction Nephrology is addressing his worsening renal picture and acute on chronic kidney disease Cardiology is addressing his arrhythmia and on Cardizem drip Reviewed chest x-ray on his admission no evidence of acute pulmonary process Surgery is addressing his bowel obstruction. Improved clinically today. Will continue to follow Time with Patient: Less than 30
[2023-08-05] MEDS: DEXTROSE 5% IN WATER 1,000 ML with SODIUM BICARB (1 MEQ/ML) 150 ML IV SCH (16:44)
[2023-08-05 16:59] LABS: Glucose,Whole Blood 109 mg/dL (70-110)
[2023-08-05 17:19] LABS: Amorphous Sediment,Urine Occasional /hpf; Appearance,Urine Cloudy (Clear); Bacteria,Urine Rare /hpf; Bilirubin,Urine Negative (Negative); Blood,Urine Moderate (Negative); Color,Urine Light Yellow; Glucose,Urine (UA) Negative (Negative); Ketones,Urine Trace (Negative); Leukocyte Esterase,Urine Moderate (Negative); Nitrite,Urine Negative (Negative); PH, Urine 5.5 (5.0-8.0); Protein,Urine 2+ (Negative); RBC,Urine 28 /hpf (0-5); Specific Gravity,Urine 1.016 (1.001-1.035); Squamous Epithelial Cell,Urine 1 /hpf (0-4); Urobilinogen,Urine <2.0 mg/dL (<2.0); WBC,Urine 54 /hpf (0-5)
--- NOTE | 2023-08-05 23:23 | P.CONS ---
History of Present Illness - Reason for Consult Consult date: 08/05/23 Small bowel obstruction and pending infection Requesting physician: Kevin Griffin - Chief Complaint Abdominal pain x few days - History of Present Illness Patient is a 83-year-old male with a past medical history significant for coronary disease COPD dementia hypertension hyperlipidemia reflux presenting to the hospital about 5 days ago for evaluation of abdominal pain along with bloating and no bowel movement for 1 day patient did have a CT abdominal pelvis on admission which reported partial mid to distal small bowel obstruction with underlying lesions patient has been admitted to the hospital and has been treated conservatively he did have a NG placed which apparently the patient removed once and has to be reinserted patient was afebrile initially however over the last 2 days the patient has been running a low-grade fever of 100.1 F to 100.4 F, patient did have some tachycardia but not hypertension also hypoxic requiring supplemental oxygen patient did have a white count of 15.5 on 08/03/2023 the white count subsequently normalized did have elevated BUN and creatinine urine has been mildly positive blood culture obtained and currently pending patient did have a repeat CT abdominal pelvis on 08/04/2023 bowel obstruction pattern and small amount of free fluid chest x-ray yesterday afternoon no acute cardiopulmonary disease process nasogastric tube is well- positioned patient has been started on Zosyn as of 07/27/2023 infectious disease was consulted today regarding small bowel obstruction and pending infection patient himself elevated good historian has been complaining of some abdominal discomfort unable to quantify it any further he did have the NG no bowel movement reported by the nursing staff or any vomiting no chest pain shortness of breath or cough Review of Systems Positive point and negatives has been mentioned in the HPI, complete review of systems was performed and all other systems are negative Past Medical History Past Medical History: Coronary Artery Disease (CAD), COPD, Dementia, GERD/Reflux, Hyperlipidemia, Hypertension Additional Past Medical History / Comment(s): dysphagia, states some memory loss History of Any Multi-Drug Resistant Organisms: None Reported Past Surgical History: Cholecystectomy, Heart Catheterization With Stent Additional Past Surgical History / Comment(s): corbin cataracts, EGD Past Anesthesia/Blood Transfusion Reactions: No Reported Reaction Date of Last Stent Placement:: unknown Past Psychological History: No Psychological Hx Reported Smoking Status: Never smoker Past Alcohol Use History: None Reported Past Drug Use History: None Reported - Past Family History Mother Family Medical History: Cancer Father Family Medical History: Cancer Medications and Allergies Home Medications Medication Instructions Recorded Confirmed Type Metoprolol Tartrate 25 mg PO BID 05/27/17 08/01/23 History Montelukast [Singulair] 10 mg PO DAILY 05/27/17 08/01/23 History Theophylline 12 Hour [Silvio-Dur] 300 mg PO BID 05/27/17 08/01/23 History Atorvastatin [Lipitor] 80 mg PO HS 11/22/19 08/01/23 History Famotidine [Pepcid] 20 mg PO BID 11/22/19 08/01/23 History Levothyroxine Sodium [Synthroid] 50 mcg PO DAILY 11/22/19 08/01/23 History Donepezil [Aricept] 10 mg PO HS 03/15/23 08/01/23 History Losartan [Cozaar] 50 mg PO DAILY 03/15/23 08/01/23 History Memantine [Namenda] 10 mg PO BID 03/15/23 08/01/23 History Budesonide-Formot 160-4.5 Mcg 2 puff INHALATION RT-BID #1 each 03/19/23 08/01/23 Rx [Symbicort 160-4.5 Mcg Inhaler] Ipratropium-Albuterol Nebulize 3 ml INHALATION RT-QID #120 each 03/19/23 08/01/23 Rx [Duoneb 0.5 mg-3 mg/3 ml Soln] Albuterol Sulfate [Albuterol 2 puff INHALATION RT-QID PRN 04/08/23 08/01/23 History Sulfate Hfa] Aspirin EC [Ecotrin Low Dose] 81 mg PO DAILY 08/01/23 08/01/23 History Triamcinolone 0.1% Cream [Kenalog 1 applicatio TOPICAL BID 08/01/23 08/01/23 History 0.1% Cream] Allergies Allergy/AdvReac Type Severity Reaction Status Date / Time ciprofloxacin [From Cipro] Allergy Rash/Hives Verified 08/01/23 11:53 levofloxacin [From Levaquin] Allergy Unknown Verified 08/01/23 11:53 rofecoxib Allergy Unknown Verified 08/01/23 11:53 sulfamethoxazole Allergy Swelling Verified 08/01/23 11:53 [From Bactrim] trimethoprim [From Bactrim] Allergy Swelling Verified 08/01/23 11:53 fluconazole [From Diflucan] AdvReac DIzziness Verified 08/01/23 11:53 & Giddiness Physical Exam Vitals: Vital Signs Temp Pulse Resp BP BP Pulse Ox 08/05/23 08:44 97.5 F L 100 18 127/66 94 L 08/05/23 04:00 99.2 F 101 H 18 112/67 97 08/05/23 02:00 107 H 18 08/05/23 00:00 98.8 F 107 H 18 112/65 97 08/04/23 20:00 100.4 F H 131 H 18 109/68 94 L 08/04/23 16:43 97.4 F L 122 H 20 132/67 95 08/04/23 13:52 98.8 F 130 H 18 135/68 96 08/04/23 13:15 98.0 F 125 H 20 105/62 97 Intake and Output 08/04/23 08/05/23 08/05/23 22:59 06:59 14:59 Intake Total 20 10 101.167 Output Total 575 Balance -555 10 101.167 Intake: IV 20 10 10 Invasive Line 3 20 10 Invasive Line 4 10 Intake, IV Titration 91.167 Amount Diltiazem 125 mg In 91.167 Sodium Chloride 0.9% 100 ml @ 5 MG/HR 5 mls/hr IV .Q24H [facility] Rx#:[id number] Output: Gastric Drainage 250 Urine 325 Other: Voiding Method Indwelling Catheter Indwelling Catheter Indwelling Catheter Weight 77.111 kg GENERAL DESCRIPTION: Elderly male lying in bed, no distress. No tachypnea or accessory muscle of respiration use. HEENT: Shows Pallor , no scleral icterus. Oral mucous membrane is dry. No pharyngeal erythema or thrush NECK: Trachea central, no thyromegaly. LUNGS: Unlabored breathing. Clear to auscultation anteriorly. No wheeze or crackle. HEART: S1, S2, regular rate and rhythm. No loud murmur ABDOMEN: Soft, mild distention and tenderness EXTREMITIES: No edema of feet. SKIN: No rash, no masses palpable. NEUROLOGICAL: The patient is awake, alert, mood and affect normal. Results CBC & Chem 7: 09/04/23 06:37 09/04/23 06:37 Labs: Abnormal Lab Results - Last 24 Hours (Table) 08/04/23 08/04/23 Range/Units 07:15 07:15 RBC 4.38 L (4.40-5.60) X 10*6/uL Hgb 12.6 L (13.0-17.0) g/dL Hct 37.9 L (39.6-50.0) % RDW 14.6 H (11.5-14.5) % MPV 9.2 L (9.5-12.2) [place] Lymphocytes # 0.54 L (0.90-5.00) X 10*3/uL Monocytes # 1.06 H (0.20-1.00) X 10*3/uL Eosinophils # 0.01 L (0.04-0.35) X 10*3/uL Carbon Dioxide 14 L (22-30) mmol/L BUN 34 H (9-20) mg/dL Creatinine 3.11 H (0.66-1.25) mg/dL Microbiology - Last 24 Hours (Table) 08/03/23 17:13 Blood Culture - Preliminary Blood 08/03/23 17:09 Blood Culture - Preliminary Blood 08/01/23 07:50 Blood Culture - Preliminary Blood 08/01/23 07:35 Blood Culture - Preliminary Blood Assessment and Plan (1) Leukocytosis Status: Acute Code(s): D72.829 - ELEVATED WHITE BLOOD CELL COUNT, UNSPECIFIED SNOMED Code(s): 414218967 (2) Fever Status: Acute Code(s): R50.9 - FEVER, UNSPECIFIED SNOMED Code(s): 888292656 Plan: 1patient with low-grade fever elevated white count and this patient presented to hospital with abdominal pain and bloating and has been diagnosed with the small bowel obstruction likely etiology for his low-grade fever and elevated white count chest x-ray repeated yesterday did not mention any pneumonia and did have a positive UA however source more likely abdominal and need to cover for enteric gram-negative anaerobes and anaerobes 2-patient currently covered with Zosyn 3.375 g every 8 hours to continue 3-blood cultures obtained and will be followed closely We will follow on clinical condition and cultures to further adjust medication if needed Thank you for this consultation we will follow the patient along with you Dictation was produced using dragon dictation software. please excuse any grammatical, word or spelling errors. Time with Patient: Greater than 30
[2023-08-06 00:03] LABS: Glucose,Whole Blood 138 mg/dL (70-110)
[2023-08-06 06:16] LABS: Glucose,Whole Blood 121 mg/dL (70-110)
[2023-08-06 11:34] LABS: Basophils % (A) 0 %; Eosinophils # (A) 0.2 k/uL (0-0.7); Eosinophils % (A) 2 %; HCT 33.2 % (39.0-53.0); HGB 10.4 gm/dL (13.0-17.5); Lymphocytes # (A) 0.4 k/uL (1.0-4.8); Lymphocytes % (A) 4 %; MCH 28.4 pg (25.0-35.0); MCHC 31.4 g/dL (31.0-37.0); MCV 90.6 fL (80.0-100.0); Mean Platelet Volume 7.4; Monocytes # (A) 0.4 k/uL (0-1.0); Monocytes % (A) 5 %; Neutrophils # (A) 7.3 k/uL (1.3-7.7); Neutrophils % (A) 87 %; Platelet Count 337 k/uL (150-450); RBC 3.67 m/uL (4.30-5.90); RDW 14.4 % (11.5-15.5); WBC 8.4 k/uL (3.8-10.6)
[2023-08-06 11:46] LABS: African American GFR (CKD) 9 (>60 ml/min/1.73 sqM); Anion Gap 13 mmol/L; Blood Urea Nitrogen 85 mg/dL (9-20); Calcium 7.5 mg/dL (8.4-10.2); Carbon Dioxide 26 mmol/L (22-30); Chloride 103 mmol/L (98-107); Glucose 128 mg/dL (74-99); Non-African American GFR(CKD) 8 (>60 ml/min/1.73 sqM); Potassium 3.9 mmol/L (3.5-5.1); Sodium 142 mmol/L (137-145)
[2023-08-06 11:50] LABS: Magnesium 2.1 mg/dL (1.6-2.3); Phosphorus 5.8 mg/dL (2.5-4.5)
[2023-08-06 11:52] LABS: Glucose,Whole Blood 127 mg/dL (70-110)
--- NOTE | 2023-08-06 12:20 | P.PN ---
Subjective patient is seen for follow-up for acute kidney injury. Patient is admitted with abdominal pain and found to have small bowel obstruction. An NG tube was placed but was removed by the patient. It was tried to be reinserted but trauma was noted. Patient is maintained on IV bicarb for significant metabolic acidosis. He has an indwelling Dow catheter with urine output documented at 280 ML for last 8 hours. maintained on Cardizem drip. labs have worsened significantly with serum creatinine increased to 6.0 today. metabolic acidosis has improved. Patient has been confused according to nursing staff. Objective - Vital Signs Vital signs: Vital Signs Temp 98.3 F 08/06/23 08:40 Pulse 92 08/06/23 08:55 Resp 16 08/06/23 08:40 BP 118/55 08/06/23 08:40 Pulse Ox 98 08/06/23 08:40 FiO2 Intake & Output 08/05/23 08/06/23 08/06/23 18:59 06:59 18:59 Intake Total 121.167 40 125 Output Total 700 280 Balance -578.833 -240 125 Weight 77.111 kg Intake: IV 30 40 Invasive Line 4 10 Invasive Line 5 10 20 Invasive Line 6 10 20 Intake, IV Titration 91.167 125 Amount Diltiazem 125 mg In 91.167 125 Sodium Chloride 0.9% 100 ml @ 5 MG/HR 5 mls/hr IV .Q24H [facility] Rx#:[id number] Output: Gastric Drainage 450 Urine 250 280 Other: Voiding Method Indwelling Catheter Indwelling Catheter Indwelling Catheter - Exam patient is awake, comfortable No acute distress He has been confused on and off Examination of the heart S1 and S2 Examination of the lungs bilateral breath sounds are heard Abdomen is soft nontender Examination of lower extremities shows no significant edema STYLE ADVISOR exam shows patient is moving all 4 extremities, he has been confused. - Labs CBC & Chem 7: 08/06/23 10:49 08/06/23 10:49 Labs: Abnormal Lab Results - Last 24 Hours (Table) 08/05/23 08/05/23 08/05/23 Range/Units 11:42 11:42 17:06 RBC 3.97 L (4.30-5.90) m/uL Hgb 11.3 L (13.0-17.5) gm/dL Hct 37.1 L (39.0-53.0) % MCHC 30.6 L (31.0-37.0) g/dL Neutrophils # 8.4 H (1.3-7.7) k/uL Lymphocytes # 0.5 L (1.0-4.8) k/uL Chloride 108 H (98-107) mmol/L Carbon Dioxide 13 L (22-30) mmol/L BUN 69 H (9-20) mg/dL Creatinine 5.60 H (0.66-1.25) mg/dL Glucose (74-99) mg/dL POC Glucose (mg/dL) (70-110) mg/dL Calcium 8.3 L (8.4-10.2) mg/dL Phosphorus (2.5-4.5) mg/dL Urine Protein 2+ H (Negative) Urine Ketones Trace H (Negative) Urine Blood Moderate H (Negative) Ur Leukocyte Esterase Moderate H (Negative) Urine RBC 28 H (0-5) /hpf Urine WBC 54 H (0-5) /hpf Amorphous Sediment Occasional H (None) /hpf Urine Bacteria Rare H (None) /hpf 08/06/23 08/06/23 08/06/23 Range/Units 00:02 06:14 10:49 RBC (4.30-5.90) m/uL Hgb (13.0-17.5) gm/dL Hct (39.0-53.0) % MCHC (31.0-37.0) g/dL Neutrophils # (1.3-7.7) k/uL Lymphocytes # (1.0-4.8) k/uL Chloride (98-107) mmol/L Carbon Dioxide (22-30) mmol/L BUN (9-20) mg/dL Creatinine (0.66-1.25) mg/dL Glucose (74-99) mg/dL POC Glucose (mg/dL) 138 H 121 H (70-110) mg/dL Calcium (8.4-10.2) mg/dL Phosphorus 5.8 H (2.5-4.5) mg/dL Urine Protein (Negative) Urine Ketones (Negative) Urine Blood (Negative) Ur Leukocyte Esterase (Negative) Urine RBC (0-5) /hpf Urine WBC (0-5) /hpf Amorphous Sediment (None) /hpf Urine Bacteria (None) /hpf 08/06/23 08/06/23 08/06/23 Range/Units 10:49 10:49 11:50 RBC 3.67 L (4.30-5.90) m/uL Hgb 10.4 L (13.0-17.5) gm/dL Hct 33.2 L (39.0-53.0) % MCHC (31.0-37.0) g/dL Neutrophils # (1.3-7.7) k/uL Lymphocytes # 0.4 L (1.0-4.8) k/uL Chloride (98-107) mmol/L Carbon Dioxide (22-30) mmol/L BUN 85 H (9-20) mg/dL Creatinine 6.08 H (0.66-1.25) mg/dL Glucose 128 H (74-99) mg/dL POC Glucose (mg/dL) 127 H (70-110) mg/dL Calcium 7.5 L (8.4-10.2) mg/dL Phosphorus (2.5-4.5) mg/dL Urine Protein (Negative) Urine Ketones (Negative) Urine Blood (Negative) Ur Leukocyte Esterase (Negative) Urine RBC (0-5) /hpf Urine WBC (0-5) /hpf Amorphous Sediment (None) /hpf Urine Bacteria (None) /hpf Microbiology - Last 24 Hours (Table) 08/03/23 17:13 Blood Culture - Preliminary Blood 08/03/23 17:09 Blood Culture - Preliminary Blood Assessment and Plan Assessment: 1. Acute kidney injury secondary to ATN. nonoliguric. Creatinine increased to 6.0 today. No hydronephrosis noted on CAT scan. 2. Chronic kidney disease stage IIIb with baseline creatinine 1.3-1.5 secondary to nephrosclerosis. 3. Partial small bowel obstruction. Surgery following. 4. Metabolic acidosis secondary to acute kidney injury and IV fluids. 5. Atrial tachycardia maintained on Cardizem drip. Cardiology following. Plan: change IV fluids to normal saline I will discuss with family regarding possibly starting renal replacement therapy tomorrow. Continue off of Cozaar Check serologies and urine for eosinophils for workup for acute kidney injury.
--- NOTE | 2023-08-06 13:59 | XR ---
EXAMINATION TYPE: XR abdomen 2V DATE OF EXAM: 08/06/2023 COMPARISON: 08/03/2023 INDICATION: Bowel obstruction lower abdomen TECHNIQUE: Single view abdomen upright view and supine view FINDINGS: There is persistent prominence of small bowel loops. The contrast present previously is not evident. No mass effect is evident. Air-filled small bowel loops extend to the right upper quadrant. Cholecyst ectomy clips are present. Some air-fluid levels may be within the mid abdominal small bowel loops. Co lonic bowel gas is present. IMPRESSION: 1. Findings suggestive for partial obstruction small bowel.
--- NOTE | 2023-08-06 14:05 | P.PN ---
Subjective Progress Note Date: 08/06/23 Dictation 08/06/23 on phone in detail Objective - Vital Signs Vital signs: Vital Signs Temp 97.4 F L 08/06/23 12:40 Pulse 89 08/06/23 12:40 Resp 16 08/06/23 12:40 BP 114/56 08/06/23 12:40 Pulse Ox 97 08/06/23 12:40 FiO2 Intake & Output 08/05/23 08/06/23 08/06/23 18:59 06:59 18:59 Intake Total 121.328 48 3938 Output Total 700 280 Balance -578.833 -240 1145 Weight 77.111 kg Intake: IV 30 40 Invasive Line 4 10 Invasive Line 5 10 20 Invasive Line 6 10 20 Intake, IV Titration 91.167 1025 Amount Dextrose 5% in Water 1, 800 000 ml @ 100 mls/hr IV . [id number] [facility] with Sodium Bicarb (1 Meq/ml) 150 ml Rx#:[id number] Diltiazem 125 mg In 91.167 125 Sodium Chloride 0.9% 100 ml @ 5 MG/HR 5 mls/hr IV .Q24H [facility] Rx#:[id number] Piperacillin-Tazobactam 3 100 .375 gm In Sodium Chloride 0.9% 100 ml @ 25 mls/hr IVPB Q12HR [facility] Rx #:[id number] Oral 120 Output: Gastric Drainage 450 Urine 250 280 Other: Voiding Method Indwelling Catheter Indwelling Catheter Indwelling Catheter - Labs CBC & Chem 7: 08/06/23 10:49 08/06/23 10:49 Labs: Abnormal Lab Results - Last 24 Hours (Table) 08/05/23 08/06/23 08/06/23 Range/Units 17:06 00:02 06:14 RBC (4.30-5.90) m/uL Hgb (13.0-17.5) gm/dL Hct (39.0-53.0) % Lymphocytes # (1.0-4.8) k/uL BUN (9-20) mg/dL Creatinine (0.66-1.25) mg/dL Glucose (74-99) mg/dL POC Glucose (mg/dL) 138 H 121 H (70-110) mg/dL Calcium (8.4-10.2) mg/dL Phosphorus (2.5-4.5) mg/dL Urine Protein 2+ H (Negative) Urine Ketones Trace H (Negative) Urine Blood Moderate H (Negative) Ur Leukocyte Esterase Moderate H (Negative) Urine RBC 28 H (0-5) /hpf Urine WBC 54 H (0-5) /hpf Amorphous Sediment Occasional H (None) /hpf Urine Bacteria Rare H (None) /hpf 08/06/23 08/06/23 08/06/23 Range/Units 10:49 10:49 10:49 RBC 3.67 L (4.30-5.90) m/uL Hgb 10.4 L (13.0-17.5) gm/dL Hct 33.2 L (39.0-53.0) % Lymphocytes # 0.4 L (1.0-4.8) k/uL BUN 85 H (9-20) mg/dL Creatinine 6.08 H (0.66-1.25) mg/dL Glucose 128 H (74-99) mg/dL POC Glucose (mg/dL) (70-110) mg/dL Calcium 7.5 L (8.4-10.2) mg/dL Phosphorus 5.8 H (2.5-4.5) mg/dL Urine Protein (Negative) Urine Ketones (Negative) Urine Blood (Negative) Ur Leukocyte Esterase (Negative) Urine RBC (0-5) /hpf Urine WBC (0-5) /hpf Amorphous Sediment (None) /hpf Urine Bacteria (None) /hpf 08/06/23 Range/Units 11:50 RBC (4.30-5.90) m/uL Hgb (13.0-17.5) gm/dL Hct (39.0-53.0) % Lymphocytes # (1.0-4.8) k/uL BUN (9-20) mg/dL Creatinine (0.66-1.25) mg/dL Glucose (74-99) mg/dL POC Glucose (mg/dL) 127 H (70-110) mg/dL Calcium (8.4-10.2) mg/dL Phosphorus (2.5-4.5) mg/dL Urine Protein (Negative) Urine Ketones (Negative) Urine Blood (Negative) Ur Leukocyte Esterase (Negative) Urine RBC (0-5) /hpf Urine WBC (0-5) /hpf Amorphous Sediment (None) /hpf Urine Bacteria (None) /hpf Microbiology - Last 24 Hours (Table) 08/01/23 07:50 Blood Culture - Final Blood 08/01/23 07:35 Blood Culture - Final Blood 08/03/23 17:13 Blood Culture - Preliminary Blood 08/03/23 17:09 Blood Culture - Preliminary Blood
--- NOTE | 2023-08-06 14:15 | P.PN ---
Subjective Progress Note Date: 08/06/23 Principal diagnosis: Acute small bowel obstruction This is a 83-year-old male patient with a known history of coronary artery disease with previous stent placement, dementia, hypertension, hyperlipidemia, hypothyroidism, non-smoker who presented here to the emergency room on 08/01/2023 with abdominal pain. He had been followed by surgical services. He did have a nasogastric tube which had approximately 2100 cc output once put in. However the patient inadvertently pulled it out last night. Today he had developed increased abdominal discomfort, tachycardia and shortness of breath. We were consulted for possible transfer to the ICU. He is seen today on the regular [facility] floor. He is awake and alert. He denies any pain at rest. He is tender to palpation. He is tachycardic, sinus. Currently afebrile. Continue O2 saturations in the mid 90s on 3 L/min per nasal cannula. Blood pressure stable. Blood cultures reveal no growth. White count 8.5. Hemoglobin 12.6. Platelets 373. Sodium 139. Potassium 4.6. Bicarb 14. BUN 34. Creatinine 3.11. Glucose 88. Amylase 73. Lipase 49. CT scan of the abdomen today revealed bowel obstruction pattern. Small amount of free fluid. Chest x-ray reveals no acute cardiopulmonary process. A nasogastric tube has been reinserted and in good position. He is currently on Zosyn. Patient was seen and examined today on 08/05/2023, patient is doing much better today compared to the last 2 days, less abdominal pain, no nausea no vomiting, continues to have nasogastric tube in place.WBC count is 9.9 hemoglobin 11.3 basic metabolic profile is normal however his renal functioning is worse with BUN up to 69 creatinine 5.60, and that is being addressed by nephrology on the case. His acute kidney injury is felt to be related to hemodynamic ATN, no hydronephrosis on CT of the abdomen, patient does have history of chronic kidney disease stage IIIb. Patient is on Cardizem drip now for atrial tachycardia. And cardiology is following Reevaluate today on 08/06/23, patient pulled his nasogastric tube yesterday, co ntinues to have abdominal distention and abdominal pain. Apparently multiple attempts by nurses to place the nasogastric tube were unsuccessful. Surgery is to address the nasogastric tube placement and or exploratory laparotomy on this patient to relieve his bowel obstruction.WBC count today is 8.4 hemoglobin 10.4, basic metabolic profile is normal renal profile is worsening with a BUN of 85 creatinine 6.08 and his renal profile is being addressed by nephrology on the case Objective - Vital Signs Vital signs: Vital Signs Temp 97.4 F L 08/06/23 12:40 Pulse 89 08/06/23 12:40 Resp 16 08/06/23 12:40 BP 114/56 08/06/23 12:40 Pulse Ox 97 08/06/23 12:40 FiO2 Intake & Output 08/05/23 08/06/23 08/06/23 18:59 06:59 18:59 Intake Total 121.666 35 2483 Output Total 700 280 Balance -578.833 -240 1145 Weight 77.111 kg Intake: IV 30 40 Invasive Line 4 10 Invasive Line 5 10 20 Invasive Line 6 10 20 Intake, IV Titration 91.167 1025 Amount Dextrose 5% in Water 1, 800 000 ml @ 100 mls/hr IV . [id number] [facility] with Sodium Bicarb (1 Meq/ml) 150 ml Rx#:[id number] Diltiazem 125 mg In 91.167 125 Sodium Chloride 0.9% 100 ml @ 5 MG/HR 5 mls/hr IV .Q24H [facility] Rx#:[id number] Piperacillin-Tazobactam 3 100 .375 gm In Sodium Chloride 0.9% 100 ml @ 25 mls/hr IVPB Q12HR [facility] Rx #:[id number] Oral 120 Output: Gastric Drainage 450 Urine 250 280 Other: Voiding Method Indwelling Catheter Indwelling Catheter Indwelling Catheter - Exam GENERAL EXAM: Revealed 83-year-old white male in no distress, on nasal cannula, 3 L nasal cannula O2 saturation 97% HEAD: Normocephalic. Atraumatic EYES: Normal reaction of pupils, equal size. NOSE: Clear with pink turbinates. THROAT: No erythema or exudates. NECK: No masses, no JVD. CHEST: No chest wall deformity. LUNGS: Clear bilaterally no rhonchi no wheezes CVS: S1 and S2 normal with no audible murmur, regular rhythm. ABDOMEN: Distended, tender, negative bowel sounds SPINE: No scoliosis or deformity SKIN: No rashes CENTRAL NERVOUS SYSTEM: Alert and oriented x 3 no gross focal deficit EXTREMITIES: No clubbing edema or cyanosis - Labs CBC & Chem 7: 08/06/23 10:49 08/06/23 10:49 Labs: Abnormal Lab Results - Last 24 Hours (Table) 08/05/23 08/06/23 08/06/23 Range/Units 17:06 00:02 06:14 RBC (4.30-5.90) m/uL Hgb (13.0-17.5) gm/dL Hct (39.0-53.0) % Lymphocytes # (1.0-4.8) k/uL BUN (9-20) mg/dL Creatinine (0.66-1.25) mg/dL Glucose (74-99) mg/dL POC Glucose (mg/dL) 138 H 121 H (70-110) mg/dL Calcium (8.4-10.2) mg/dL Phosphorus (2.5-4.5) mg/dL Urine Protein 2+ H (Negative) Urine Ketones Trace H (Negative) Urine Blood Moderate H (Negative) Ur Leukocyte Esterase Moderate H (Negative) Urine RBC 28 H (0-5) /hpf Urine WBC 54 H (0-5) /hpf Amorphous Sediment Occasional H (None) /hpf Urine Bacteria Rare H (None) /hpf 08/06/23 08/06/23 08/06/23 Range/Units 10:49 10:49 10:49 RBC 3.67 L (4.30-5.90) m/uL Hgb 10.4 L (13.0-17.5) gm/dL Hct 33.2 L (39.0-53.0) % Lymphocytes # 0.4 L (1.0-4.8) k/uL BUN 85 H (9-20) mg/dL Creatinine 6.08 H (0.66-1.25) mg/dL Glucose 128 H (74-99) mg/dL POC Glucose (mg/dL) (70-110) mg/dL Calcium 7.5 L (8.4-10.2) mg/dL Phosphorus 5.8 H (2.5-4.5) mg/dL Urine Protein (Negative) Urine Ketones (Negative) Urine Blood (Negative) Ur Leukocyte Esterase (Negative) Urine RBC (0-5) /hpf Urine WBC (0-5) /hpf Amorphous Sediment (None) /hpf Urine Bacteria (None) /hpf 08/06/23 Range/Units 11:50 RBC (4.30-5.90) m/uL Hgb (13.0-17.5) gm/dL Hct (39.0-53.0) % Lymphocytes # (1.0-4.8) k/uL BUN (9-20) mg/dL Creatinine (0.66-1.25) mg/dL Glucose (74-99) mg/dL POC Glucose (mg/dL) 127 H (70-110) mg/dL Calcium (8.4-10.2) mg/dL Phosphorus (2.5-4.5) mg/dL Urine Protein (Negative) Urine Ketones (Negative) Urine Blood (Negative) Ur Leukocyte Esterase (Negative) Urine RBC (0-5) /hpf Urine WBC (0-5) /hpf Amorphous Sediment (None) /hpf Urine Bacteria (None) /hpf Microbiology - Last 24 Hours (Table) 08/01/23 07:50 Blood Culture - Final Blood 08/01/23 07:35 Blood Culture - Final Blood 08/03/23 17:13 Blood Culture - Preliminary Blood 08/03/23 17:09 Blood Culture - Preliminary Blood Assessment and Plan Assessment: Impression: Abdominal pain in a patient found to have a bowel obstruction and small amount of free fluid Tachycardia secondary to above Acute hypoxemic respiratory failure secondary to above, history of COPD but is a lifelong non-smoker History of coronary disease with previous stent placement Hypertension Hyperlipidemia Hypothyroidism Dementia Lifelong non-smoker Recommendation: Patient will need placement back of his nasogastric tube and may actually require surgical intervention surgery is following. Continue present supportive care measures Nephrology is addressing his worsening renal picture and acute on chronic kidney disease Cardiology is addressing his arrhythmia Surgery is addressing his bowel obstruction. There is no improvement noted today. May require exploratory laparotomy, decision to be made by surgery on the case. Or at least will need nasogastric tube placed back by surgery Will continue to follow Time with Patient: Less than 30
[2023-08-06] MEDS: LACTATED RINGERS 1,000 ML IV SCH (15:57)
--- NOTE | 2023-08-06 16:15 | P.PN ---
Subjective Progress Note Date: 08/06/23 Principal diagnosis: Reason for follow-up is fever likely abdominal source Patient is a 83-year-old male with a past medical history significant for coronary disease COPD dementia hypertension hyperlipidemia reflux presenting to the hospital for evaluation of abdominal pain bloating has been diagnosed with the distal small bowel obstruction developing a fever concerning for possible abdominal sepsis prompting this consultation. On today's evaluation that is 08/06/2023,the patient denies any fever or any chills, patient is breathing comfortably on 3 L nasal cannula oxygen the patient denies chest pain shortness of breath and no significant cough, patient denies nausea vomiting having some left-sided abdominal pain and the patient not very clear about having any bowel movement he did pull out his NG tube. Patient white count is 8.4 creatinine 6.08 Objective - Vital Signs Vital signs: Vital Signs Temp 97.4 F L 08/06/23 12:40 Pulse 89 08/06/23 12:40 Resp 16 08/06/23 12:40 BP 114/56 08/06/23 12:40 Pulse Ox 97 08/06/23 12:40 FiO2 Intake & Output 08/05/23 08/06/23 08/06/23 18:59 06:59 18:59 Intake Total 121.302 69 7866 Output Total 700 280 Balance -578.833 -240 1145 Weight 77.111 kg Intake: IV 30 40 Invasive Line 4 10 Invasive Line 5 10 20 Invasive Line 6 10 20 Intake, IV Titration 91.167 1025 Amount Dextrose 5% in Water 1, 800 000 ml @ 100 mls/hr IV . [id number] [facility] with Sodium Bicarb (1 Meq/ml) 150 ml Rx#:[id number] Diltiazem 125 mg In 91.167 125 Sodium Chloride 0.9% 100 ml @ 5 MG/HR 5 mls/hr IV .Q24H [facility] Rx#:[id number] Piperacillin-Tazobactam 3 100 .375 gm In Sodium Chloride 0.9% 100 ml @ 25 mls/hr IVPB Q12HR [facility] Rx #:[id number] Oral 120 Output: Gastric Drainage 450 Urine 250 280 Other: Voiding Method Indwelling Catheter Indwelling Catheter Indwelling Catheter - Exam GENERAL DESCRIPTION: An elderly male up in the chair in no distress RESPIRATORY SYSTEM: Unlabored breathing , decreased breath sounds at bases HEART: S1 S2 regular rate and rhythm , ABDOMEN: Soft , no tenderness EXTREMITIES: No edema feet - Labs CBC & Chem 7: 08/06/23 10:49 08/06/23 10:49 Labs: Abnormal Lab Results - Last 24 Hours (Table) 08/05/23 08/06/23 08/06/23 Range/Units 17:06 00:02 06:14 RBC (4.30-5.90) m/uL Hgb (13.0-17.5) gm/dL Hct (39.0-53.0) % Lymphocytes # (1.0-4.8) k/uL BUN (9-20) mg/dL Creatinine (0.66-1.25) mg/dL Glucose (74-99) mg/dL POC Glucose (mg/dL) 138 H 121 H (70-110) mg/dL Calcium (8.4-10.2) mg/dL Phosphorus (2.5-4.5) mg/dL Urine Protein 2+ H (Negative) Urine Ketones Trace H (Negative) Urine Blood Moderate H (Negative) Ur Leukocyte Esterase Moderate H (Negative) Urine RBC 28 H (0-5) /hpf Urine WBC 54 H (0-5) /hpf Amorphous Sediment Occasional H (None) /hpf Urine Bacteria Rare H (None) /hpf 08/06/23 08/06/23 08/06/23 Range/Units 10:49 10:49 10:49 RBC 3.67 L (4.30-5.90) m/uL Hgb 10.4 L (13.0-17.5) gm/dL Hct 33.2 L (39.0-53.0) % Lymphocytes # 0.4 L (1.0-4.8) k/uL BUN 85 H (9-20) mg/dL Creatinine 6.08 H (0.66-1.25) mg/dL Glucose 128 H (74-99) mg/dL POC Glucose (mg/dL) (70-110) mg/dL Calcium 7.5 L (8.4-10.2) mg/dL Phosphorus 5.8 H (2.5-4.5) mg/dL Urine Protein (Negative) Urine Ketones (Negative) Urine Blood (Negative) Ur Leukocyte Esterase (Negative) Urine RBC (0-5) /hpf Urine WBC (0-5) /hpf Amorphous Sediment (None) /hpf Urine Bacteria (None) /hpf 08/06/23 Range/Units 11:50 RBC (4.30-5.90) m/uL Hgb (13.0-17.5) gm/dL Hct (39.0-53.0) % Lymphocytes # (1.0-4.8) k/uL BUN (9-20) mg/dL Creatinine (0.66-1.25) mg/dL Glucose (74-99) mg/dL POC Glucose (mg/dL) 127 H (70-110) mg/dL Calcium (8.4-10.2) mg/dL Phosphorus (2.5-4.5) mg/dL Urine Protein (Negative) Urine Ketones (Negative) Urine Blood (Negative) Ur Leukocyte Esterase (Negative) Urine RBC (0-5) /hpf Urine WBC (0-5) /hpf Amorphous Sediment (None) /hpf Urine Bacteria (None) /hpf Microbiology - Last 24 Hours (Table) 08/01/23 07:50 Blood Culture - Final Blood 08/01/23 07:35 Blood Culture - Final Blood 08/03/23 17:13 Blood Culture - Preliminary Blood 08/03/23 17:09 Blood Culture - Preliminary Blood Assessment and Plan (1) Fever Current Visit: Yes Status: Acute Code(s): R50.9 - FEVER, UNSPECIFIED SNOMED Code(s): 435354597 (2) Leukocytosis Current Visit: Yes Status: Acute Code(s): D72.829 - ELEVATED WHITE BLOOD CELL COUNT, UNSPECIFIED SNOMED Code(s): 131195230 (3) Small bowel obstruction Current Visit: Yes Status: Acute Code(s): K56.609 - UNSP INTESTNL OBST, UNSP TO PARTIAL VERSUS COMPLETE OBST SNOMED Code(s): 970061757 Plan: 1patient with low-grade fever elevated white count and this patient presented to hospital with abdominal pain and bloating and has been diagnosed with the small bowel obstruction likely etiology for his low-grade fever and elevated white count chest x-ray repeated yesterday did not mention any pneumonia and did have a positive UA however source more likely abdominal and need to cover for enteric gram-negative anaerobes and anaerobes 2-patient did have resolution of his fever white count normal, patient will be covered with Zosyn 3.375 g every 8 hours to continue Family at the bedside multiple questions answered Dictation was produced using [employer] dictation software. please excuse any grammatical, word or spelling errors. Time with Patient: Less than 30
[2023-08-06 16:44] LABS: Glucose,Whole Blood 118 mg/dL (70-110)
--- NOTE | 2023-08-06 19:11 | P.PN ---
Subjective Progress Note Date: 08/06/23 This is a 83-year-old male with a past medical history significant for coronary artery disease with previous angioplasty of the LAD in 2007, hypertension, hyperlipidemia, COPD, hypothyroidism, and dementia. Patient used to follow in the office with Dr. Worthington but has not been seen since May 2019. We have been asked to see the patient in consultation for hypertension. Patient examined at the bedside. Patient currently denies chest pain or pressure. He denies shortness of breath. He reports abdominal pain. Patient pulled out his NG tube this morning and nursing is attempting to reinsert NG tube at this time. Patient is n.p.o. Bedside telemetry reveals sinus tachycardia/atrial tachycardia with a heart rate around 120. DIAGNOSTICS: - EKG reveals sinus tachycardia versus atrial tachycardia with a heart of 147. No signs of acute ischemia. Incomplete right bundle branch block.. - Chest xray negative for acute process. - Laboratory data: WBC 15.5. Hemoglobin 12.3. Platelet count 383. Sodium 139. Potassium 4.2. BUN 22. Creatinine 1.24. - Current home cardiac medications include aspirin 81 mg daily, Lipitor 80 mg at night, metoprolol tartrate 25 mg twice a day, losartan 50 mg daily. - Most recent echocardiogram obtained in March 2023 revealed ejection fraction 55 to 60%, mild mitral and aortic regurgitation 08/04 Patient is seen today on the cardiac stepdown unit. Telemetry is sinus rhythm running [id number], blood pressure 112/60, pulse ox 94% on 3 L nasal cannula. Repe at blood work reveals hemoglobin 11.3. BUN 69 creatinine 5.6. Potassium 4.5. NG tube was inserted yesterday with large volume return. August 06, 2023 Seen and examined at bedside this a.m. Telemetry shows sinus rhythm heart rate around 90 to 100 bpm blood pressure systolic 110 to 120 mmHg patient's telemetry did not show any further arrhythmias. PHYSICAL EXAM: VITAL SIGNS: Reviewed. GENERAL: Well-developed in no acute distress. HEENT: Head is normocephalic. Pupils are equal, round. Sclerae anicteric. Neck supple. No JVD or thyromegaly LUNGS: Respirations even and unlabored. Lungs essentially clear to auscultation bilaterally. HEART: Tachycardic. Regular rate and rhythm. S1 and S2 heard. EXTREMITIES: No clubbing or cyanosis. Peripheral pulses intact. No lower extremity edema NEUROLOGIC: Awake and alert. Oriented x 3. ASSESSMENT: Abdominal pain Small bowel obstruction Possible diverticulitis Sinus tachycardia/atrial tachycardia, likely physiological response due to underlying acute illness Acute renal failure Coronary artery disease with previous angioplasty of the LAD in 2007 Hypertension Hyperlipidemia COPD Hypothyroidism Dementia PLAN: As patient is going through small bowel obstruction, pain and dehydration, his sinus tachycardia is reflex. It is physiological. Patient is also on Theophylline which I will discontinue as this can potentiate his sinus tachycar padmini. Discontinue IV Cardizem drip. Use metoprolol IV pushes as needed Patient currently NPO. At this time cardiology team will sign off. Please reconsult us in case of any questions. Objective - Vital Signs Vital signs: Vital Signs Temp 98.3 F 08/06/23 16:29 Pulse 92 08/06/23 16:41 Resp 16 08/06/23 16:29 BP 114/57 08/06/23 16:29 Pulse Ox 96 08/06/23 16:29 FiO2 Intake & Output 08/06/23 08/06/23 08/07/23 06:59 18:59 06:59 Intake Total 40 1145 Output Total 280 Balance -240 1145 Intake: IV 40 Invasive Line 5 20 Invasive Line 6 20 Intake, IV Titration 1025 Amount Dextrose 5% in Water 1, 800 000 ml @ 100 mls/hr IV . [id number] [facility] with Sodium Bicarb (1 Meq/ml) 150 ml Rx#:[id number] Diltiazem 125 mg In 125 Sodium Chloride 0.9% 100 ml @ 5 MG/HR 5 mls/hr IV .Q24H [facility] Rx#:[id number] Piperacillin-Tazobactam 3 100 .375 gm In Sodium Chloride 0.9% 100 ml @ 25 mls/hr IVPB Q12HR [facility] Rx #:[id number] Oral 120 Output: Urine 280 Other: Voiding Method Indwelling Catheter Indwelling Catheter - Labs CBC & Chem 7: 08/06/23 10:49 08/06/23 10:49 Labs: Abnormal Lab Results - Last 24 Hours (Table) 08/06/23 08/06/23 08/06/23 Range/Units 00:02 06:14 10:49 RBC (4.30-5.90) m/uL Hgb (13.0-17.5) gm/dL Hct (39.0-53.0) % Lymphocytes # (1.0-4.8) k/uL BUN (9-20) mg/dL Creatinine (0.66-1.25) mg/dL Glucose (74-99) mg/dL POC Glucose (mg/dL) 138 H 121 H (70-110) mg/dL Calcium (8.4-10.2) mg/dL Phosphorus 5.8 H (2.5-4.5) mg/dL 08/06/23 08/06/23 08/06/23 Range/Units 10:49 10:49 11:50 RBC 3.67 L (4.30-5.90) m/uL Hgb 10.4 L (13.0-17.5) gm/dL Hct 33.2 L (39.0-53.0) % Lymphocytes # 0.4 L (1.0-4.8) k/uL BUN 85 H (9-20) mg/dL Creatinine 6.08 H (0.66-1.25) mg/dL Glucose 128 H (74-99) mg/dL POC Glucose (mg/dL) 127 H (70-110) mg/dL Calcium 7.5 L (8.4-10.2) mg/dL Phosphorus (2.5-4.5) mg/dL 08/06/23 Range/Units 16:42 RBC (4.30-5.90) m/uL Hgb (13.0-17.5) gm/dL Hct (39.0-53.0) % Lymphocytes # (1.0-4.8) k/uL BUN (9-20) mg/dL Creatinine (0.66-1.25) mg/dL Glucose (74-99) mg/dL POC Glucose (mg/dL) 118 H (70-110) mg/dL Calcium (8.4-10.2) mg/dL Phosphorus (2.5-4.5) mg/dL Microbiology - Last 24 Hours (Table) 08/01/23 07:50 Blood Culture - Final Blood 08/01/23 07:35 Blood Culture - Final Blood 08/03/23 17:13 Blood Culture - Preliminary Blood 08/03/23 17:09 Blood Culture - Preliminary Blood
--- NOTE | 2023-08-06 19:53 | OP ---
OPERATIVE REPORT DATE OF SERVICE : 08/06/2023 CODE STATUS: Full code. He is 5 feet 7 inches, weight 77.11 kg. BSA 1.89 m2. BMI 26.6 kg/m2. ALLERGY: Ciprofloxacin, levofloxacin, rofecoxib, sulfamethoxazole/trimethoprim, fluconazole. HISTORY OF PRESENT ILLNESS: The patient seen, evaluated today [id number] and discussed with his daughter and and her grandson. They are living in [place], not close to the patient. His current vital signs indicating his temperature 98.3 F oral, his heart rate with Cardizem drip 92, his pulse rate 93, respiratory rate 16, his blood pressure 118/55 with a mean blood pressure 76, his oxygen 98 on 3 L. LABORATORIES: His white count today 8.4 and hemoglobin 10.4, hematocrit 33.2, and MCV 90.6. His chemistry indicating that sodium 142, potassium 3.9, and chloride 103, carbon dioxide 26 improved with the underlying metabolic acidosis. BUN 85 and creatinine jeanine up to 6.08, and GFR is for non- 8 with the acute kidney failure and acute kidney injury probably secondary to atherosclerosis and hypotension with his current illness with the acute small bowel obstruction. His blood sugar is today 128, and his CBG has been monitored, and his calcium 7.5, his phosphorus 5.8 secondary to the acute kidney injuries. Magnesium is 2.5. He is seen by Pulmonary and Nephrology, Dr. Cervantes, as well as the Cardiology team. With the underlying critical condition, I did discuss it with the patient and his family, daughter. PHYSICAL EXAMINATION: GENERAL: The patient is awake, alert, conscious, however, he has forgetfulness with the underlying cognitive function abnormalities. He has underlying past history of COPD and chronic kidney disease stage 3 as well as history of hypothyroidism and severe asthma. HEENT: Head was normocephalic, atraumatic. His oropharynx, natural teeth. He has normal hearing, and he had left facial abnormality chronically present with drooping of the left eyelid as well as changing on the facial for the left angle of the mouth. NECK: Supple. No JVD. No thyromegaly. No lymphadenopathy. Trachea midline. CHEST: He has increased anteroposterior diameter. However, the lung is aerated with a normal breath sound, occasional rhonchi. HEART: PMI in the 5th intercostal space with the normal S1, S2 and his heart rate is improved with a history of sinus tachycardia and has been followed by the cardiology. ABDOMEN: He has significant distention of the abdomen with tenderness with deep palpation and underlying rebound. Also, he had high-pitched sound of the abdomen with the gurgling sound as well. EXTREMITIES: No edema. Positive pulses. NEUROLOGIC: Stable. No lateralizing sign. ASSESSMENT AND PLAN: 1. He had acute small-bowel obstruction. 2. Underlying acute episode of shortness of breath and with the COPD and severe asthma. 3. Severe sinus tachycardia and decompensation. 4. Acute kidney injury. 5. Hypothyroidism. The patient has GERD disease as well. PLAN: 1. Currently, the patient has several consulting physicians; Pulmonary, Cardiology, Nephrology, Infectious Disease. 2. Continuation of his antibiotic. 3. Patient with the acute kidney injury. He will be probable dialysis for supporting the renal function, and he is already on antibiotic for acute kidney injury, could be associated also with infection ? but the urine analysis is abnormal. 4. Other consulting support orders on the record. Expectation of hemodialysis will be tomorrow with the placement of dialysis catheter as mentioned by the stringed instrument tuner to the family. We will continue following up, but the condition is critical. The patient is still making urine. However, the renal function is deteriorating. MMODL / IJN: [id number] /
--- NOTE | 2023-08-06 20:24 | CA ---
Transthoracic Echo Report Name: Praveen Parker Age: 83 Gender: M : 1940 Exam Date: 08/05/2023 12:10 Exam Location: [facility] Ht (in): 67 Wt (lb): 170 Ordering Physician: Yamel Pinzon MD Attending/Referring Phys: Alberta SELLERS Electrical Installation Supervisor Enma Saldana RDCS Procedure CPT: Indications: New arrhythmia, abnormal EKG Cardiac Hx: RBBB Technical Quality: Fair Contrast 1: Total Dose (mL): Contrast 2: Total Dose (mL): MEASUREMENTS (Male / Female) Normal Values 2D ECHO LV Diastolic Diameter PLAX 4.7 cm 4.2 - 5.9 / 3.9 - 5.3 cm LV Systolic Diameter PLAX 2.9 cm IVS Diastolic Thickness 0.9 cm 0.6 - 1.0 / 0.6 - 0.9 cm LVPW Diastolic Thickness 0.9 cm 0.6 - 1.0 / 0.6 - 0.9 cm LV Relative Wall Thickness 0.4 RV Internal Dim ED PLAX 3.8 cm LA Systolic Diameter LX 3.7 cm 3.0 - 4.0 / 2.7 - 3.8 cm LV Diastolic Volume MOD 4C 80.0 cm??? LV Systolic Volume MOD 4C 23.9 cm??? LV Ejection Fraction MOD 4C 70.2 % LV Cardiac Index MOD 4C 3034.1 cm???/min???m??? LV Diastolic Length 4C 7.7 cm LV Systolic Length 4C 6.2 cm LV Diastolic Volume MOD 2C 77.2 cm??? LV Systolic Volume MOD 2C 31.5 cm??? LV Ejection Fraction MOD 2C 59.2 % LV Cardiac Index MOD 2C 2473.0 cm???/min???m??? LV Diastolic Length 2C 8.5 cm LV Systolic Length 2C 6.7 cm LA Volume 41.4 cm??? 18 - 58 / 22 - 52 cm??? LA Volume Index 21.5 cm???/m??? 16 - 28 cm???/m??? M-MODE Aortic Root Diameter MM 3.4 cm DOPPLER AV Peak Velocity 156.9 cm/s AV Peak Gradient 9.8 mmHg MV Area PHT 2.8 cm??? Mitral E Point Velocity 62.2 cm/s Mitral A Point Velocity 102.0 cm/s Mitral E to A Ratio 0.6 MV Deceleration Time 270.4 ms FINDINGS Left Ventricle Left ventricular ejection fraction is estimated at 70 %. Left ventricular cavity size normal. Left ventricular wall thickness normal. No obvious regional wall motion abnormalities. Right Ventricle Mild right ventricular dilatation. Unable to estimate the right ventricular systolic pressure. Right Atrium Normal right atrial size. Left Atrium Normal left atrial size. Mitral Valve Mitral valve thickened. Moderate mitral annular calcification. No mitral stenosis, regurgitation or prolapse. Aortic Valve Aortic valve not well visualized. No aortic valve stenosis or regurgitation. Tricuspid Valve Structurally normal tricuspid valve. No tricuspid regurgitation. Pulmonic Valve Pulmonic valve not well visualized. Pericardium No pericardial effusion. Aorta Normal size aortic root and proximal ascending aorta. CONCLUSIONS Hyperdynamic LV. LVEF >60% No obvious regional wall motion abnormalities. Moderate mitral annular calcification. No major valve dysfunction No pericardial effusion. Previewed by: Dr Pravin Aviles (Electronically Signed) Final Date: 06 August 2023 20:23
[2023-08-06] MEDS: ALPRAZolam 0.25 MG TAB PO PRN (20:27)
[2023-08-06 23:33] LABS: Hepatitis B Surface Antigen Nonreactive (Nonreactive); Hepatitis C IgG Antibody Nonreactive (Nonreactive)
[2023-08-06 23:48] LABS: Glucose,Whole Blood 108 mg/dL (70-110)
--- NOTE | 2023-08-07 01:10 | P.PN ---
Subjective Progress Note Date: 08/06/23 Principal diagnosis: SBO CHIEF COMPLAINT: Abdominal pain HISTORY OF PRESENT ILLNESS: The patient is a 83-year-old male admitted with lower abdominal pain. pain and exam improved today per his nurse. and his exam today no acute abdomen and no distention, yes flatus, no BM. . He has no further abdominal distention. ROS: No bowel movements. No fevers or chills. No new chest pain. PHYSICAL EXAM: VITAL SIGNS: Reviewed CONSTITUTIONAL: Well developed and in no acute distress. EYES: Conjuctivae without sclera icterus. Extraocular movements grossly intact. HEAD, EARS, NOSE, THROAT: Moist buccal mucosa. Head is atraumatic, normocephalic. Hears conversational speech. NG tube present. RESPIRATORY: Non-labored respirations and equal bilateral excursions. CARDIOVASCULAR: Palpable 2+ radial pulses. ABDOMEN: Nondistended. Nontender. MUSCULOSKELETAL: No gross deformity of the lower extremities noted. No clubbing. No cyanosis. Tender posterior thighs. SKIN: Good skin turgor. Well perfused. NEUROLOGIC: Cranial nerves II through XII grossly intact. No focal or lateralizing signs. PSYCH: Alert and oriented to person. ASSESSMENT: 1. Small bowel obstruction due to adhesions with abdominal pain 2. Supraventricular tachycardia 3. Acute onset renal failure PLAN: 1. At this time, echocardiogram pending due to new supraventricular tachycardia and possible surgical invention 2. Anticipated surgical invention Tuesday for exploratory laparotomy should he demonstrate clinical decline or no improvement. 4. May have ice chips and popsicles in the interim on TPN Objective - Vital Signs Vital signs: Vital Signs Temp 98.7 F 08/06/23 23:35 Pulse 103 H 08/06/23 23:35 Resp 20 08/06/23 23:35 BP 137/68 08/06/23 23:35 Pulse Ox 94 L 08/06/23 23:35 FiO2 Intake & Output 08/06/23 08/06/23 08/07/23 06:59 18:59 06:59 Intake Total 40 1145 Output Total 280 Balance -240 1145 Intake: IV 40 Invasive Line 5 20 Invasive Line 6 20 Intake, IV Titration 1025 Amount Dextrose 5% in Water 1, 800 000 ml @ 100 mls/hr IV . [id number] [facility] with Sodium Bicarb (1 Meq/ml) 150 ml Rx#:[id number] Diltiazem 125 mg In 125 Sodium Chloride 0.9% 100 ml @ 5 MG/HR 5 mls/hr IV .Q24H [facility] Rx#:[id number] Piperacillin-Tazobactam 3 100 .375 gm In Sodium Chloride 0.9% 100 ml @ 25 mls/hr IVPB Q12HR [facility] Rx #:[id number] Oral 120 Output: Urine 280 Other: Voiding Method Indwelling Catheter Indwelling Catheter Indwelling Catheter - Labs CBC & Chem 7: 08/06/23 10:49 08/06/23 10:49 Labs: Abnormal Lab Results - Last 24 Hours (Table) 08/06/23 08/06/23 08/06/23 Range/Units 06:14 10:49 10:49 RBC 3.67 L (4.30-5.90) m/uL Hgb 10.4 L (13.0-17.5) gm/dL Hct 33.2 L (39.0-53.0) % Lymphocytes # 0.4 L (1.0-4.8) k/uL BUN (9-20) mg/dL Creatinine (0.66-1.25) mg/dL Glucose (74-99) mg/dL POC Glucose (mg/dL) 121 H (70-110) mg/dL Calcium (8.4-10.2) mg/dL Phosphorus 5.8 H (2.5-4.5) mg/dL 08/06/23 08/06/23 08/06/23 Range/Units 10:49 11:50 16:42 RBC (4.30-5.90) m/uL Hgb (13.0-17.5) gm/dL Hct (39.0-53.0) % Lymphocytes # (1.0-4.8) k/uL BUN 85 H (9-20) mg/dL Creatinine 6.08 H (0.66-1.25) mg/dL Glucose 128 H (74-99) mg/dL POC Glucose (mg/dL) 127 H 118 H (70-110) mg/dL Calcium 7.5 L (8.4-10.2) mg/dL Phosphorus (2.5-4.5) mg/dL Microbiology - Last 24 Hours (Table) 08/01/23 07:50 Blood Culture - Final Blood 08/01/23 07:35 Blood Culture - Final Blood 08/03/23 17:13 Blood Culture - Preliminary Blood 08/03/23 17:09 Blood Culture - Preliminary Blood
[2023-08-07 05:54] LABS: Glucose,Whole Blood 93 mg/dL (70-110)
[2023-08-07 08:03] LABS: Hepatitis B Surface AB- Quant 3.5 mIU/mL
--- NOTE | 2023-08-07 09:34 | P.PN ---
Progress Note - Text Progress Note Date: 08/07/23 patient remains clinically unchanged. He is scheduled for possible surgery Dr. Goodman tomorrow. On exam vital signs appear stable. Abdomen soft with minimal tenderness. Chronic small obstruction. Patient may undergo surgery tomorrow. He will be evaluated Dr. Goodman first.
[2023-08-07 10:41] LABS: African American GFR (CKD) 8 (>60 ml/min/1.73 sqM); Anion Gap 13 mmol/L; Blood Urea Nitrogen 89 mg/dL (9-20); Calcium 7.9 mg/dL (8.4-10.2); Carbon Dioxide 28 mmol/L (22-30); Chloride 104 mmol/L (98-107); Glucose 82 mg/dL (74-99); Magnesium 2.1 mg/dL (1.6-2.3); Non-African American GFR(CKD) 7 (>60 ml/min/1.73 sqM); Phosphorus 5.5 mg/dL (2.5-4.5); Sodium 145 mmol/L (137-145)
--- NOTE | 2023-08-07 11:22 | P.PN ---
Subjective patient is seen for follow-up for acute kidney injury. Patient is admitted with abdominal pain and found to have small bowel obstruction. An NG tube was placed but was removed by the patient. It was tried to be reinserted but trauma was noted. Patient is maintained on IV bicarb for significant metabolic acidosis. He has an indwelling Dow catheter with urine output documented at 600 mL for last 8 hours. off of Cardizem drip. serum creatinine at 6.3 from 6.0 yesterday, therefore the increase is not that significant. I we'll hold dialysis today and repeat labs tomorrow. Patient has been confused according to nursing staff. Objective - Vital Signs Vital signs: Vital Signs Temp 98.0 F 08/07/23 08:20 Pulse 98 08/07/23 08:20 Resp 20 08/07/23 08:20 BP 153/71 08/07/23 08:20 Pulse Ox 92 L 08/07/23 08:20 FiO2 Intake & Output 08/06/23 08/07/23 08/07/23 18:59 06:59 18:59 Intake Total 1145 Output Total 600 Balance 1145 -600 Intake: Intake, IV Titration 1025 Amount Dextrose 5% in Water 1, 800 000 ml @ 100 mls/hr IV . [id number] [facility]MAN with Sodium Bicarb (1 Meq/ml) 150 ml Rx#:[id number] Diltiazem 125 mg In 125 Sodium Chloride 0.9% 100 ml @ 5 MG/HR 5 mls/hr IV .Q24H W[facility]MAN Rx#:[id number] Piperacillin-Tazobactam 3 100 .375 gm In Sodium Chloride 0.9% 100 ml @ 25 mls/hr IVPB Q12HR [facility] Rx #:[id number] Oral 120 Output: Urine 600 Other: Voiding Method Indwelling Catheter Indwelling Catheter Indwelling Catheter - Exam patient is sleeping, comfortable. He had sedation earlier today. No acute distress He has been confused on and off Examination of the heart S1 and S2 Examination of the lungs bilateral breath sounds are heard Abdomen is soft nontender Examination of lower extremities shows no significant edema [employer]GER exam shows patient is moving all 4 extremities, he has been confused. - Labs CBC & Chem 7: 08/06/23 10:49 08/07/23 09:10 Labs: Abnormal Lab Results - Last 24 Hours (Table) 08/06/23 08/06/2308/05/24 Range/Units 10:49 10:49 10:49 RBC 3.67 L (4.30-5.90) m/uL Hgb 10.4 L (13.0-17.5) gm/dL Hct 33.2 L (39.0-53.0) % Lymphocytes # 0.4 L (1.0-4.8) k/uL BUN 85 H (9-20) mg/dL Creatinine 6.08 H (0.66-1.25) mg/dL Glucose 128 H (74-99) mg/dL POC Glucose (mg/dL) (70-110) mg/dL Calcium 7.5 L (8.4-10.2) mg/dL Phosphorus 5.8 H (2.5-4.5) mg/dL 08/06/23 08/06/23 08/07/23 Range/Units 11:50 16:42 09:10 RBC (4.30-5.90) m/uL Hgb (13.0-17.5) gm/dL Hct (39.0-53.0) % Lymphocytes # (1.0-4.8) k/uL BUN 89 H (9-20) mg/dL Creatinine 6.38 H (0.66-1.25) mg/dL Glucose (74-99) mg/dL POC Glucose (mg/dL) 127 H 118 H (70-110) mg/dL Calcium 7.9 L (8.4-10.2) mg/dL Phosphorus 5.5 H (2.5-4.5) mg/dL Microbiology - Last 24 Hours (Table) 08/03/23 17:13 Blood Culture - Preliminary Blood 08/03/23 17:09 Blood Culture - Preliminary Blood 08/01/23 07:50 Blood Culture - Final Blood 08/01/23 07:35 Blood Culture - Final Blood Assessment and Plan Assessment: 1. Acute kidney injury secondary to ATN. nonoliguric. Creatinine increased to 6.3 today from 6.0 yesterday. No hydronephrosis noted on CAT scan. 2. Chronic kidney disease stage IIIb with baseline creatinine 1.3-1.5 secondary to nephrosclerosis. 3. Partial small bowel obstruction. Surgery following. 4. Metabolic acidosis secondary to acute kidney injury and IV fluids. 5. Atrial tachycardia, status post Cardizem drip Plan: continue IV fluids Hold hemodialysis today as a serum creatinine has not increased further significantly. Repeat labs in a.m. Continue to avoid nephrotoxic agents.
[2023-08-07 11:29] LABS: Glucose,Whole Blood 78 mg/dL (70-110)
[2023-08-07] MEDS ORDERED: ALPRAZolam 0.5 MG TAB PO PRN (11:44)
[2023-08-07] MEDS: DEXTROSE 5%-0.45% NACL 1,000 ML IV SCH (12:23)
--- NOTE | 2023-08-07 14:09 | P.PN ---
Subjective Progress Note Date: 08/07/23 Principal diagnosis: Acute small bowel obstruction This is a 83-year-old male patient with a known history of coronary artery disease with previous stent placement, dementia, hypertension, hyperlipidemia, hypothyroidism, non-smoker who presented here to the emergency room on 08/01/2023 with abdominal pain. He had been followed by surgical services. He did have a nasogastric tube which had approximately 2100 cc output once put in. However the patient inadvertently pulled it out last night. Today he had developed increased abdominal discomfort, tachycardia and shortness of breath. We were consulted for possible transfer to the ICU. He is seen today on the regular [facility] floor. He is awake and alert. He denies any pain at rest. He is tender to palpation. He is tachycardic, sinus. Currently afebrile. Continue O2 saturations in the mid 90s on 3 L/min per nasal cannula. Blood pressure stable. Blood cultures reveal no growth. White count 8.5. Hemoglobin 12.6. Platelets 373. Sodium 139. Potassium 4.6. Bicarb 14. BUN 34. Creatinine 3.11. Glucose 88. Amylase 73. Lipase 49. CT scan of the abdomen today revealed bowel obstruction pattern. Small amount of free fluid. Chest x-ray reveals no acute cardiopulmonary process. A nasogastric tube has been reinserted and in good position. He is currently on Zosyn. Patient was seen and examined today on 08/05/2023, patient is doing much better today compared to the last 2 days, less abdominal pain, no nausea no vomiting, continues to have nasogastric tube in place.WBC count is 9.9 hemoglobin 11.3 basic metabolic profile is normal however his renal functioning is worse with BUN up to 69 creatinine 5.60, and that is being addressed by nephrology on the case. His acute kidney injury is felt to be related to hemodynamic ATN, no hydronephrosis on CT of the abdomen, patient does have history of chronic kidney disease stage IIIb. Patient is on Cardizem drip now for atrial tachycardia. And cardiology is following Reevaluate today on 08/06/23, patient pulled his nasogastric tube yesterday, co ntinues to have abdominal distention and abdominal pain. Apparently multiple attempts by nurses to place the nasogastric tube were unsuccessful. Surgery is to address the nasogastric tube placement and or exploratory laparotomy on this patient to relieve his bowel obstruction.WBC count today is 8.4 hemoglobin 10.4, basic metabolic profile is normal renal profile is worsening with a BUN of 85 creatinine 6.08 and his renal profile is being addressed by nephrology on the case Patient was reevaluated today on 08/07/2023, continues to have abdominal pain, continues to have small bowel obstruction, and now he is developing worsening renal disease. From the looks of it, patient may be heading towards dialysis. Patient was seen by Dr. Truong today, and I believe he is recommending exploratory laparotomy after he is seen by Dr. Goodman tomorrow. Continues to have decent urine output, 600 cc in the last 8 hours. Could not have a nasogastric tube placed back, patient is getting intermittently confused and he pulled out his nasogastric tube 2 days ago.Basic metabolic profile today was noted however his BUN is 89 creatinine up to 6.38 Objective - Vital Signs Vital signs: Vital Signs Temp 97.4 F L 08/07/23 11:36 Pulse 104 H 08/07/23 12:07 Resp 18 08/07/23 11:36 BP 145/76 08/07/23 11:36 Pulse Ox 96 08/07/23 11:56 FiO2 Intake & Output 08/06/23 08/07/23 08/07/23 18:59 06:59 18:59 Intake Total 1145 Output Total 600 300 Balance 1145 -600 -300 Intake: Intake, IV Titration 1025 Amount Dextrose 5% in Water 1, 800 000 ml @ 100 mls/hr IV . [id number] [facility]ILMAN with Sodium Bicarb (1 Meq/ml) 150 ml Rx#:[id number] Diltiazem 125 mg In 125 Sodium Chloride 0.9% 100 ml @ 5 MG/HR 5 mls/hr IV .Q24H [facility]MAN Rx#:[id number] Piperacillin-Tazobactam 3 100 .375 gm In Sodium Chloride 0.9% 100 ml @ 25 mls/hr IVPB Q12HR [facility]MAN Rx #:[id number] Oral 120 Output: Urine 600 300 Other: Voiding Method Indwelling Catheter Indwelling Catheter Indwelling Catheter - Exam GENERAL EXAM: Revealed 83-year-old white male in no distress, on nasal cannula, 2 L nasal cannula O2 saturation 96% HEAD: Normocephalic. Atraumatic EYES: Normal reaction of pupils, equal size. NOSE: Clear with pink turbinates. THROAT: No erythema or exudates. NECK: No masses, no JVD. CHEST: No chest wall deformity. LUNGS: Clear bilaterally no rhonchi no wheezes CVS: S1 and S2 normal with no audible murmur, regular rhythm. ABDOMEN: Distended, tender, negative bowel sounds SPINE: No scoliosis or deformity SKIN: No rashes CENTRAL NERVOUS SYSTEM: Alert and oriented x 3 no gross focal deficit EXTREMITIES: No clubbing edema or cyanosis - Labs CBC & Chem 7: 08/06/23 10:49 08/07/23 09:10 Labs: Abnormal Lab Results - Last 24 Hours (Table) 08/06/23 08/07/23 Range/Units 16:42 09:10 BUN 89 H (9-20) mg/dL Creatinine 6.38 H (0.66-1.25) mg/dL POC Glucose (mg/dL) 118 H (70-110) mg/dL Calcium 7.9 L (8.4-10.2) mg/dL Phosphorus 5.5 H (2.5-4.5) mg/dL Microbiology - Last 24 Hours (Table) 08/03/23 17:13 Blood Culture - Preliminary Blood 08/03/23 17:09 Blood Culture - Preliminary Blood 08/01/23 07:50 Blood Culture - Final Blood 08/01/23 07:35 Blood Culture - Final Blood Assessment and Plan Assessment: Impression: Abdominal pain in a patient found to have a bowel obstruction and small amount of free fluid Tachycardia secondary to above Acute hypoxemic respiratory failure secondary to above, history of COPD but is a lifelong non-smoker History of coronary disease with previous stent placement Hypertension Hyperlipidemia Hypothyroidism Dementia Lifelong non-smoker Recommendation: Patient is not showing any signs of improvement, or recovery from his bowel obstruction with conservative measures not to mention the patient could not have his nasogastric tube placed back Continue present supportive care measures Recommending surgical intervention for his small bowel obstruction, hopefully the patient will undergo expiratory laparotomy as noted by Dr. Truong's note Nephrology is addressing his worsening renal picture and acute on chronic kidney disease, may eventually require hemodialysis Will continue to follow Time with Patient: Less than 30
--- NOTE | 2023-08-07 14:30 | P.PN ---
Subjective Progress Note Date: 08/07/23 (Small bowel obstruction, acute kidney injury) Progress note Date of service 08/[address] Griffin Patient seen at bedside and discussed with his daughter Kunal and her . And prior to that I discussed it with the other daughter iL. Patient is awake alert he recognized the name of his daughter as well as my name. Conscious alert forgetful, During the night he is anxious and we started him on Xanax 0.25 mg every 8 hour was not helping and we increase it to 1 mg every 6 hour as needed for agitation. On evaluation of the laboratory today is BUN 89, creatinine 6.38 with the p rogressive elevation. Discussed with the daughter We have thought that patient will have dialysis today apparently not the case and the agreeable with the dialysis as the family and the patient and Dr. Cervantes will be notified for the future arrangement. As the family agreeable. In regard of his blood glucose was low, apparently my previous order for to run 0.9 normal saline/with dextrose has been removed discontinued and replaced by lactated ringer unclear the reason now Dr. Cervantes put him back on the half D5 normal saline. Calcium 7.9 and phosphorus 5.5 abnormal however magnesium is 2.1 and a potassium 4. 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 at this time with the underlying small bowel obstruction. Neck was supple no JVD. Chest clear with the increased anteroposterior diameter normal breath sounds and seen by pulmonary and critical care Dr. Schreiber today Heart currently rate between 98-103, respiratory rate 18-20, blood pressure 145/76 with a mean 99. His oxygen saturation 92 on room air however with 2 L nasal cannula 98% to 96%. Compensated cardiac Abdomen: Severe tenderness 10/10 with the abdominal pain treated with Dilantin. Extremities no edema and positive pulses Neurologically no new event no lateralizing sign Assessment and plan 1. Small bowel obstruction probable adhesion worsening and progressive 2. Short of breath with COPD and asthma currently stable 3. Sinus tachycardia currently stable with blood pressure improved. 4. Progressed to acute kidney injury and renal failure with progressed creatinine and dropped his renal function with a GFR for non- 7. 5. Anxiety especially during the night. 6. History of cognitive function impairment however patient is conscious alert oriented. Plan: 1. Several consulting physician following the patient, cardiology, pulmonary, nephrology, infectious disease 2. Fourth of decision in regard of the dialysis per nephrology and family agreed for dialysis however needs for third arrangement for the placement of dialysis catheter by vascular surgeon. 3. The surgeon Dr. Pinzon for evaluation and treatment as she following the patient and will know her opinion tomorrow. 4. Patient is critical and will be continue monitoring. Objective - Vital Signs Vital signs: Vital Signs Temp 97.4 F L 08/07/23 11:36 Pulse 104 H 08/07/23 12:07 Resp 18 08/07/23 11:36 BP 145/76 08/07/23 11:36 Pulse Ox 96 08/07/23 11:56 FiO2 Intake & Output 08/06/23 08/07/23 08/07/23 18:59 06:59 18:59 Intake Total 1145 Output Total 600 300 Balance 1145 -600 -300 Intake: Intake, IV Titration 1025 Amount Dextrose 5% in Water 1, 800 000 ml @ 100 mls/hr IV . [id number] [facility]ILMAN with Sodium Bicarb (1 Meq/ml) 150 ml Rx#:[id number] Diltiazem 125 mg In 125 Sodium Chloride 0.9% 100 ml @ 5 MG/HR 5 mls/hr IV .Q24H [facility]ILMAN Rx#:[id number] Piperacillin-Tazobactam 3 100 .375 gm In Sodium Chloride 0.9% 100 ml @ 25 mls/hr IVPB Q12HR [facility]IL[facility] Rx #:[id number] Oral 120 Output: Urine 600 300 Other: Voiding Method Indwelling Catheter Indwelling Catheter Indwelling Catheter - Labs CBC & Chem 7: 08/06/23 10:49 08/07/23 09:10 Labs: Abnormal Lab Results - Last 24 Hours (Table) 08/06/23 08/07/23 Range/Units 16:42 09:10 BUN 89 H (9-20) mg/dL Creatinine 6.38 H (0.66-1.25) mg/dL POC Glucose (mg/dL) 118 H (70-110) mg/dL Calcium 7.9 L (8.4-10.2) mg/dL Phosphorus 5.5 H (2.5-4.5) mg/dL Microbiology - Last 24 Hours (Table) 08/03/23 17:13 Blood Culture - Preliminary Blood 08/03/23 17:09 Blood Culture - Preliminary Blood 08/01/23 07:50 Blood Culture - Final Blood 08/01/23 07:35 Blood Culture - Final Blood
--- NOTE | 2023-08-07 15:53 | P.PN ---
Subjective Progress Note Date: 08/07/23 Principal diagnosis: Reason for follow-up is fever likely abdominal source Patient is a 83-year-old male with a past medical history significant for coronary disease COPD dementia hypertension hyperlipidemia reflux presenting to the hospital for evaluation of abdominal pain bloating has been diagnosed with the distal small bowel obstruction developing a fever concerning for possible abdominal sepsis prompting this consultation. On today's evaluation that is 08/07/2023,the patient remains to be afebrile, patient is on 2 L nasal cannula supplemental oxygen and denies any shortness of breath no chest pain or cough.Patient denies having any nausea or vomiting, comp laining of abdominal pain he did not have any bowel movement. Patient creatinine 6.38 blood culture for negative Objective - Vital Signs Vital signs: Vital Signs Temp 97.3 F L 08/07/23 15:47 Pulse 101 H 08/07/23 15:47 Resp 18 08/07/23 15:47 BP 146/75 08/07/23 15:47 Pulse Ox 95 08/07/23 15:47 FiO2 Intake & Output 08/06/23 08/07/23 08/07/23 18:59 06:59 18:59 Intake Total 1145 Output Total 600 300 Balance 1145 -600 -300 Intake: Intake, IV Titration 1025 Amount Dextrose 5% in Water 1, 800 000 ml @ 100 mls/hr IV . [id number] WILMAN with Sodium Bicarb (1 Meq/ml) 150 ml Rx#:[id number] Diltiazem 125 mg In 125 Sodium Chloride 0.9% 100 ml @ 5 MG/HR 5 mls/hr IV .Q24H WILMAN Rx#:[id number] Piperacillin-Tazobactam 3 100 .375 gm In Sodium Chloride 0.9% 100 ml @ 25 mls/hr IVPB Q12HR [facility]ILMAN Rx #:[id number] Oral 120 Output: Urine 600 300 Other: Voiding Method Indwelling Catheter Indwelling Catheter Indwelling Catheter - Exam GENERAL DESCRIPTION: An elderly male up in the chair in no distress RESPIRATORY SYSTEM: Unlabored breathing , decreased breath sounds at bases HEART: S1 S2 regular rate and rhythm , ABDOMEN: Soft , no tenderness EXTREMITIES: No edema feet - Labs CBC & Chem 7: 08/06/23 10:49 08/07/23 09:10 Labs: Abnormal Lab Results - Last 24 Hours (Table) 08/06/23 08/07/23 Range/Units 16:42 09:10 BUN 89 H (9-20) mg/dL Creatinine 6.38 H (0.66-1.25) mg/dL POC Glucose (mg/dL) 118 H (70-110) mg/dL Calcium 7.9 L (8.4-10.2) mg/dL Phosphorus 5.5 H (2.5-4.5) mg/dL Microbiology - Last 24 Hours (Table) 08/03/23 17:13 Blood Culture - Preliminary Blood 08/03/23 17:09 Blood Culture - Preliminary Blood 08/01/23 07:50 Blood Culture - Final Blood 08/01/23 07:35 Blood Culture - Final Blood Assessment and Plan (1) Fever Current Visit: Yes Status: Acute Code(s): R50.9 - FEVER, UNSPECIFIED SNOMED Code(s): 268174418 (2) Leukocytosis Current Visit: Yes Status: Acute Code(s): D72.829 - ELEVATED WHITE BLOOD CELL COUNT, UNSPECIFIED SNOMED Code(s): 418287523 (3) Small bowel obstruction Current Visit: Yes Status: Acute Code(s): K56.609 - UNSP INTESTNL OBST, UNSP TO PARTIAL VERSUS COMPLETE OBST SNOMED Code(s): 150223366 Plan: 1patient with low-grade fever elevated white count and this patient presented to hospital with abdominal pain and bloating and has been diagnosed with the small bowel obstruction likely etiology for his low-grade fever and elevated white count chest x-ray repeated yesterday did not mention any pneumonia and did have a positive UA however source more likely abdominal and need to cover for enteric gram-negative anaerobes and anaerobes 2-patient did have resolution of his fever white count normal, patient still have significant abdominal tenderness and will benefit for repeat CT for now continue with Zosyn 3.375 g every 8 hours Family at the bedside multiple questions answered Dictation was produced using [employer] dictation software. please excuse any grammatical, word or spelling errors. Time with Patient: Less than 30
[2023-08-07] MEDS: ALPRAZolam 1 MG TAB PO PRN (17:30)
[2023-08-07 18:05] LABS: Glucose,Whole Blood 100 mg/dL (70-110)
[2023-08-07 23:54] LABS: Glucose,Whole Blood 95 mg/dL (70-110)
[2023-08-08 06:20] LABS: Glucose,Whole Blood 91 mg/dL (70-110)
[2023-08-08 08:23] LABS: African American GFR (CKD) 10 (>60 ml/min/1.73 sqM); Anion Gap 9 mmol/L; Blood Urea Nitrogen 93 mg/dL (9-20); Carbon Dioxide 27 mmol/L (22-30); Chloride 107 mmol/L (98-107); Glucose 98 mg/dL (74-99); Magnesium 2.1 mg/dL (1.6-2.3); Non-African American GFR(CKD) 8 (>60 ml/min/1.73 sqM); Phosphorus 5.4 mg/dL (2.5-4.5); Potassium 4.2 mmol/L (3.5-5.1); Sodium 143 mmol/L (137-145)
[2023-08-08 08:28] LABS: Basophils % (A) 0 %; Eosinophils # (A) 0.4 k/uL (0-0.7); Eosinophils % (A) 4 %; HGB 11.4 gm/dL (13.0-17.5); Lymphocytes # (A) 0.7 k/uL (1.0-4.8); Lymphocytes % (A) 7 %; MCH 28.7 pg (25.0-35.0); MCHC 31.5 g/dL (31.0-37.0); MCV 91.1 fL (80.0-100.0); Mean Platelet Volume 7.5; Monocytes # (A) 0.5 k/uL (0-1.0); Monocytes % (A) 6 %; Neutrophils # (A) 7.7 k/uL (1.3-7.7); Neutrophils % (A) 81 %; Platelet Count 343 k/uL (150-450); RBC 3.96 m/uL (4.30-5.90); RDW 14.4 % (11.5-15.5); WBC 9.5 k/uL (3.8-10.6)
--- NOTE | 2023-08-08 10:09 | P.PN ---
Subjective patient is seen for follow-up for acute kidney injury. serum creatinine improved to 5.6 today. Patient continues to have fair urine output. He has an indwelling Dow catheter. Patient has been confused according to nursing staff. Objective - Vital Signs Vital signs: Vital Signs Temp 97.9 F 08/08/23 08:34 Pulse 99 08/08/23 08:34 Resp 20 08/08/23 08:34 BP 148/70 08/08/23 08:34 Pulse Ox 96 08/08/23 08:34 FiO2 Intake & Output 08/07/23 08/08/23 08/08/23 18:59 06:59 18:59 Intake Total 20 Output Total 300 625 Balance -300 -625 20 Intake: IV 20 Invasive Line 5 10 Invasive Line 6 10 Output: Urine 300 625 Other: Voiding Method Indwelling Catheter Indwelling Catheter - Exam patient is sleeping, comfortable. arousable but falls back to sleep No acute distress He has been confused on and off Examination of the heart S1 and S2 Examination of the lungs bilateral breath sounds are heard Abdomen is soft nontender Examination of lower extremities shows no significant edema [employer] exam shows patient is moving all 4 extremities, he has been confused. - Labs CBC & Chem 7: 08/08/23 07:11 08/08/23 07:11 Labs: Abnormal Lab Results - Last 24 Hours (Table) 08/07/23 08/08/23 08/08/23 Range/Units 09:10 07:11 07:11 RBC 3.96 L (4.30-5.90) m/uL Hgb 11.4 L (13.0-17.5) gm/dL Hct 36.0 L (39.0-53.0) % Lymphocytes # 0.7 L (1.0-4.8) k/uL BUN 89 H 93 H (9-20) mg/dL Creatinine 6.38 H 5.62 H (0.66-1.25) mg/dL Calcium 7.9 L 8.0 L (8.4-10.2) mg/dL Phosphorus 5.5 H 5.4 H (2.5-4.5) mg/dL Assessment and Plan Assessment: 1. Acute kidney injury secondary to ATN. nonoliguric. Creatinine decrease to 5.6 today. No hydronephrosis noted on CAT scan. hold renal replacement therapy for now. 2. Chronic kidney disease stage IIIb with baseline creatinine 1.3-1.5 secondary to nephrosclerosis. 3. Partial small bowel obstruction. Surgery following. 4. Metabolic acidosis secondary to acute kidney injury and IV fluids. 5. Atrial tachycardia, status post Cardizem drip Plan: continue IV fluids Hold hemodialysis as renal function has improved. Repeat labs in a.m. Continue to avoid nephrotoxic agents.
[2023-08-08 11:22] LABS: Glucose,Whole Blood 97 mg/dL (70-110)
[2023-08-08 13:01] LABS: Anti-DNA, DS unit <1.0 IU/mL; DNA Double-Stranded Negative (Negative)
--- NOTE | 2023-08-08 13:36 | P.PN ---
Subjective Progress Note Date: 08/08/23 (Small bowel obstruction, acute renal failure, tachycardia) Progress note Date of service 08/08/[address] Griffin Patient seen evaluated discussed with his RN Discussed with his daughter caregiver Edwige. Patient was shivering and feeling cold and covered with extra blanket. Severe pain and abdomen with even light touch. On exam: Patient is intermittently confused and agitated he called his daughter during the night for comfort and he is on Xanax. Head and neck no change Chest normal breath sounds and the receiving inhalation therapy and followed by Dr. Schreiber pulmonary and critical care Heart he had 2 EKG today with a sinus tachycardia and seen by cardiology Abdomen: Tender in the 4 quadrant mainly in the mid abdomen and left lower quadrant with small bowel obstruction persistent. Renal patient had acute kidney injury with ATN, nonoliguric with his creatinine minimally improved and seen by Dr. Cervantes nephrology she will be waiting for tomorrow to reassess Dr. Pinzon surgery see saw the patient today and she discuss it with his daughter JEN and surgery is pending Extremities no edema and positive pulses. Vital signs temperature 97.9 F oral heart rate 99 bpm, respiratory rate 2021. Blood pressure 148/76-159/60., Oxygen saturation with nasal cannula 2 L 97%. Laboratories: WBC 9.5, hemoglobin 11.4, hematocrit 36.0. Chemistry: Potassium 4.2, sodium 143, BUN 93, his creatinine 5.62 yesterday was 6.38. And on 08/02/2023 was 1.4 and 1.24 and a GFR non- 8, phosphate 5.4 elevated and the calcium is 8. Magnesium stable 2.[address] Mehta infectious disease as well Assessment Acute small bowel obstruction with possible adhesions Sinus tachycardia Short of breath with history of asthma and COPD Acute kidney injury with the sudden rise of his BUN and creatinine was nonoliguric secondary to ATN. Plan: 1. Dr. Pinzon surgeon saw him and she will start her planning 2. Dr. Cervantes nephrology saw the patient and monitoring him for the future dialysis if needed. 3. Dr. APOLLO Bailey cardiology following the patient and he is on beta-radha IV 4. Dr. Schreiber and his group is following the patient from the standpoint of critical care and pulmonary. 5. Dr. Simmons infectious disease following the patient with the antibiotic. 6. Will continue the current treatment and follow the patient Discussed with the patient daughter the POA. Objective - Vital Signs Vital signs: Vital Signs Temp 97.9 F 08/08/23 08:34 Pulse 93 08/08/23 11:39 Resp 22 08/08/23 11:39 BP 159/60 08/08/23 11:39 Pulse Ox 97 08/08/23 11:39 FiO2 Intake & Output 08/07/23 08/08/23 08/08/23 18:59 06:59 18:59 Intake Total 20 Output Total 300 625 400 Balance -398 -124 -427 Weight 77.111 kg Intake: IV 20 Invasive Line 5 10 Invasive Line 6 10 Output: Urine 300 625 400 Other: Voiding Method Indwelling Catheter Indwelling Catheter Indwelling Catheter - Labs CBC & Chem 7: 08/08/23 07:11 08/08/23 07:11 Labs: Abnormal Lab Results - Last 24 Hours (Table) 08/08/23 08/08/23 Range/Units 07:11 07:11 RBC 3.96 L (4.30-5.90) m/uL Hgb 11.4 L (13.0-17.5) gm/dL Hct 36.0 L (39.0-53.0) % Lymphocytes # 0.7 L (1.0-4.8) k/uL BUN 93 H (9-20) mg/dL Creatinine 5.62 H (0.66-1.25) mg/dL Calcium 8.0 L (8.4-10.2) mg/dL Phosphorus 5.4 H (2.5-4.5) mg/dL
--- NOTE | 2023-08-08 14:30 | P.PN ---
Subjective Progress Note Date: 08/08/23 Principal diagnosis: Small bowel obstruction. This is a 83-year-old male patient with a known history of coronary artery disease with previous stent placement, dementia, hypertension, hyperlipidemia, hypothyroidism, non-smoker who presented here to the emergency room on 08/01/2023 with abdominal pain. He had been followed by surgical services. He did have a nasogastric tube which had approximately 2100 cc output once put in. However the patient inadvertently pulled it out last night. Today he had developed increased abdominal discomfort, tachycardia and shortness of breath. We were consulted for possible transfer to the ICU. He is seen today on the regular medical floor. He is awake and alert. He denies any pain at rest. He is tender to palpation. He is tachycardic, sinus. Currently afebrile. Continue O2 saturations in the mid 90s on 3 L/min per nasal cannula. Blood pressure stable. Blood cultures reveal no growth. White count 8.5. Hemoglobin 12.6. Platelets 373. Sodium 139. Potassium 4.6. Bicarb 14. BUN 34. Creatinine 3.11. Glucose 88. Amylase 73. Lipase 49. CT scan of the abdomen today revealed bowel obstruction pattern. Small amount of free fluid. Chest x-ray reveals no acute cardiopulmonary process. A nasogastric tube has been reinserted and in good position. He is currently on Zosyn. Patient was seen and examined today on 08/05/2023, patient is doing much better today compared to the last 2 days, less abdominal pain, no nausea no vomiting, continues to have nasogastric tube in place.WBC count is 9.9 hemoglobin 11.3 basic metabolic profile is normal however his renal functioning is worse with BUN up to 69 creatinine 5.60, and that is being addressed by nephrology on the case. His acute kidney injury is felt to be related to hemodynamic ATN, no hydronephrosis on CT of the abdomen, patient does have history of chronic kidney disease stage IIIb. Patient is on Cardizem drip now for atrial tachycardia. And cardiology is following Reevaluate today on 08/06/23, patient pulled his nasogastric tube yesterday, continues to have abdominal distention and abdominal pain. Apparently multiple attempts by nurses to place the nasogastric tube were unsuccessful. Surgery is to address the nasogastric tube placement and or exploratory laparotomy on this patient to relieve his bowel obstruction.WBC count today is 8.4 hemoglobin 10.4, basic metabolic profile is normal renal profile is worsening with a BUN of 85 creatinine 6.08 and his renal profile is being addressed by nephrology on the case Patient was reevaluated today on 08/07/2023, continues to have abdominal pain, continues to have small bowel obstruction, and now he is developing worsening renal disease. From the looks of it, patient may be heading towards dialysis. Patient was seen by Dr. Truong today, and I believe he is recommending exploratory laparotomy after he is seen by Dr. Goodman tomorrow. Continues to have decent urine output, 600 cc in the last 8 hours. Could not have a nasogastric tube placed back, patient is getting in Progress note dated August 08, 2023. 83-year-old male seen in room 378. The patient is currently on 2 L of oxygen. The patient is getting dextrose with half-normal saline at 100 cc an hour. He does have a significantly tender abdomen, anytime he burps, or coughs. Also, he is tender on palpation. Current labs include a white count 9.5, hemoglobin 11.4, hematocrit 36, and a platelet count of 343,000. Sodium 143, potassium 4.2, chlorides 107, CO2 27, BUN 93, creatinine 5.62. Calcium is 8, with a phosphorus of 5.4. Glucose is 97. Blood cultures are negative. Objective - Vital Signs Vital signs: Vital Signs Temp 97.9 F 08/08/23 08:34 Pulse 93 08/08/23 11:39 Resp 22 08/08/23 11:39 BP 159/60 08/08/23 11:39 Pulse Ox 97 08/08/23 11:39 FiO2 Intake & Output 08/07/23 08/08/23 08/08/23 18:59 06:59 18:59 Intake Total 20 Output Total 300 625 400 Balance -283 -501 -779 Weight 77.111 kg Intake: IV 20 Invasive Line 5 10 Invasive Line 6 10 Output: Urine 300 625 400 Other: Voiding Method Indwelling Catheter Indwelling Catheter Indwelling Catheter - Exam No acute distress, oriented 3. The patient is currently on 2 L. No respiratory difficulty. HEENT examination is grossly unremarkable. Mucous membranes are moist. No oral lesions. Neck supple. Full range of motion. No adenopathy thyromegaly or neck vein distention. Cardiovascular examination reveals regular rhythm rate. S1-S2 normal. No S3 or S4. No discernible murmur noted. Heart rate is 90 bpm. Lungs reveal clear breath sounds. Breath sounds are equal bilaterally. No adventitious lung sounds including wheezes rhonchi or crackles. 2 L saturation is 97 to 98%. Abdomen is tender on palpation. No bowel sounds. Extremities are intact. No cyanosis clubbing or edema. Skin is without rash or lesion. Neurologic examination is brief but nonfocal. - Labs CBC & Chem 7: 08/08/23 07:11 08/08/23 07:11 Labs: Abnormal Lab Results - Last 24 Hours (Table) 08/08/23 08/08/23 Range/Units 07:11 07:11 RBC 3.96 L (4.30-5.90) m/uL Hgb 11.4 L (13.0-17.5) gm/dL Hct 36.0 L (39.0-53.0) % Lymphocytes # 0.7 L (1.0-4.8) k/uL BUN 93 H (9-20) mg/dL Creatinine 5.62 H (0.66-1.25) mg/dL Calcium 8.0 L (8.4-10.2) mg/dL Phosphorus 5.4 H (2.5-4.5) mg/dL Assessment and Plan Assessment: Abdominal pain, secondary to bowel obstruction. Acute hypoxemic respiratory failure, secondary to COPD. Patient a lifelong non-smoker. History of coronary artery disease, with previous stent placement. History of hypertension. History of hyperlipidemia. History of hypothyroidism. History of dementia. Plan: Plan dated August 08, 2023. The patient is stable from the pulmonary status. Labs, x-rays, medications are reviewed. We will continue to follow, make recommendations along the way. The patient in the end, may need an exploratory laparotomy, to determine, his intra- abdominal pathology. Nephrology is addressing his worsening renal pattern. Additional recommendations and suggestions are forthcoming. We will continue to follow. Time with Patient: Less than 30
[2023-08-08] MEDS: IV FLUID CONTINUATION 1,000 ML IV ONE (16:34)
--- NOTE | 2023-08-08 17:03 | P.PN ---
Subjective Progress Note Date: 08/08/23 CHIEF COMPLAINT: Abdominal pain HISTORY OF PRESENT ILLNESS: The patient is a 83-year-old male admitted with left lower abdominal pain including bowel obstruction. Since admission he has developed new acute onset renal failure. He had a supraventricular tachycardia event which is now controlled. Family is at bedside. Patient refuses to have an NG tube. Incidentally, patient now has rebound left lower quadrant abdominal pain including abdominal distention from his bowel obstruction. ROS: No bowel movements. No fevers or chills. No new chest pain. PHYSICAL EXAM: VITAL SIGNS: Reviewed CONSTITUTIONAL: Well developed and in no acute distress. EYES: Conjuctivae without sclera icterus. Extraocular movements grossly intact. HEAD, EARS, NOSE, THROAT: Moist buccal mucosa. Head is atraumatic, normocephalic. Hears conversational speech. NG tube present. RESPIRATORY: Non-labored respirations and equal bilateral excursions. CARDIOVASCULAR: Palpable 2+ radial pulses. ABDOMEN: Increased abdominal distention. Tender left lower quadrant. MUSCULOSKELETAL: No gross deformity of the lower extremities noted. No clubbing. No cyanosis. Tender posterior thighs. SKIN: Good skin turgor. Well perfused. NEUROLOGIC: Cranial nerves II through XII grossly intact. No focal or lateralizing signs. PSYCH: Alert and oriented to person. CLINICAL LABS: Reviewed. WBC normal. Creatinine elevated 6.38 down to 5.6 with acute renal failure, baseline creatinine 1.24 during hospitalization ECHO: Left ventricular ejection fraction over 65%. No wall motion abnormalities identified ASSESSMENT: 1. Small bowel obstruction due to adhesions with abdominal pain 2. Supraventricular tachycardia 3. Acute onset renal failure PLAN: 1. Per discussion with patient's family, request for minimally invasive technique placed. Due to patient's no prior open abdominal surgeries, minimal invasive technique will be difficult as patient has abdominal distention and refuses an NG tube. Diagnosed laparoscopy will be attempted however risk for open laparotomy was reviewed in detail. 2. Patient has acute renal failure and pneumoperitoneum may transiently worsen kidney function was also described with the patient's family and patient at bedside. 3. Patient is elevated risk for complications due to acute renal failure including comorbid conditions Objective - Vital Signs Vital signs: Vital Signs Temp 97.9 F 08/08/23 08:34 Pulse 98 08/08/23 16:49 Resp 16 08/08/23 16:49 BP 151/74 08/08/23 16:49 Pulse Ox 96 08/08/23 16:49 FiO2 Intake & Output 08/07/23 08/08/23 08/08/23 18:59 06:59 18:59 Intake Total 20 Output Total 300 625 400 Balance -429 -778 -744 Weight 77.111 kg Intake: IV 20 Invasive Line 5 10 Invasive Line 6 10 Output: Urine 300 625 400 Other: Voiding Method Indwelling Catheter Indwelling Catheter Indwelling Catheter - Labs CBC & Chem 7: 08/08/23 07:11 08/08/23 07:11 Labs: Abnormal Lab Results - Last 24 Hours (Table) 08/08/23 08/08/23 Range/Units 07:11 07:11 RBC 3.96 L (4.30-5.90) m/uL Hgb 11.4 L (13.0-17.5) gm/dL Hct 36.0 L (39.0-53.0) % Lymphocytes # 0.7 L (1.0-4.8) k/uL BUN 93 H (9-20) mg/dL Creatinine 5.62 H (0.66-1.25) mg/dL Calcium 8.0 L (8.4-10.2) mg/dL Phosphorus 5.4 H (2.5-4.5) mg/dL
--- NOTE | 2023-08-08 17:04 | P.HPADDEND ---
H&P Addendum H&P Addendum Date: 08/08/23 Possibility of open technique with ostomy was also reviewed as patient reports left lower quadrant abdominal pain and presence of diverticular disease. Discussion performed with patient and family as well.
[2023-08-08] MEDS ORDERED: fentaNYL (PF) 50 MCG/ML 2 ML AMP ONE (18:15)
[2023-08-08] MEDS ORDERED: NEOSTIGMINE 1 MG/ML 10 ML VIAL ONE (18:15)
[2023-08-08] MEDS ORDERED: PROPOFOL 10 MG/ML 20 ML VIAL IV ONE (18:15)
[2023-08-08] MEDS ORDERED: METOPROLOL TARTRATE 5 MG/5 ML VIAL IVP ONE (18:15)
[2023-08-08] MEDS ORDERED: LIDOCAINE 1% INJ 10MG/ML (20 ML MDV) ONE (18:15)
[2023-08-08] MEDS ORDERED: ROCURONIUM 10 MG/ML (5 ML VIAL) IV ONE (18:15)
[2023-08-08] MEDS ORDERED: PHENYLEPHRINE 10 MG/ML VIAL ONE (18:15)
[2023-08-08] MEDS ORDERED: GLYCOPYRROLATE 0.2 MG/ML 2 ML VIAL ONE (18:15)
--- NOTE | 2023-08-08 18:57 | P.PN ---
Subjective Progress Note Date: 08/08/23 Principal diagnosis: Reason for follow-up is fever likely abdominal source Patient is a 83-year-old male with a past medical history significant for coronary disease COPD dementia hypertension hyperlipidemia reflux presenting to the hospital for evaluation of abdominal pain bloating has been diagnosed with the distal small bowel obstruction developing a fever concerning for possible abdominal sepsis prompting this consultation. On today's evaluation that is 08/08/2023, the patient continues to be afebrile, the patient is on 2 L nasal cannula oxygen and breathing comfortably, the Pt was sleepy and apparently moans when he is up from abdominal pain as reported by the family at the bedside no vomiting has been reported and did not have any bowel movement. The patient white count is 9.5, creatinine is 5.62 blood culture has been negative so far Objective - Vital Signs Vital signs: Vital Signs Temp 97.9 F 08/08/23 08:34 Pulse 93 08/08/23 11:39 Resp 22 08/08/23 11:39 BP 159/60 08/08/23 11:39 Pulse Ox 97 08/08/23 11:39 FiO2 Intake & Output 08/07/23 08/08/23 08/08/23 18:59 06:59 18:59 Intake Total 20 Output Total 300 625 400 Balance -300 -419 -380 Weight 77.111 kg Intake: IV 20 Invasive Line 5 10 Invasive Line 6 10 Output: Urine 300 625 400 Other: Voiding Method Indwelling Catheter Indwelling Catheter Indwelling Catheter - Exam GENERAL DESCRIPTION: An elderly male up in the chair in no distress RESPIRATORY SYSTEM: Unlabored breathing , decreased breath sounds at bases HEART: S1 S2 regular rate and rhythm , ABDOMEN: Soft , no tenderness EXTREMITIES: No edema feet - Labs CBC & Chem 7: 08/08/23 07:11 08/08/23 07:11 Labs: Abnormal Lab Results - Last 24 Hours (Table) 08/08/23 08/08/23 Range/Units 07:11 07:11 RBC 3.96 L (4.30-5.90) m/uL Hgb 11.4 L (13.0-17.5) gm/dL Hct 36.0 L (39.0-53.0) % Lymphocytes # 0.7 L (1.0-4.8) k/uL BUN 93 H (9-20) mg/dL Creatinine 5.62 H (0.66-1.25) mg/dL Calcium 8.0 L (8.4-10.2) mg/dL Phosphorus 5.4 H (2.5-4.5) mg/dL Assessment and Plan (1) Fever Current Visit: Yes Status: Acute Code(s): R50.9 - FEVER, UNSPECIFIED SNOMED Code(s): 445210417 (2) Leukocytosis Current Visit: Yes Status: Acute Code(s): D72.829 - ELEVATED WHITE BLOOD CELL COUNT, UNSPECIFIED SNOMED Code(s): 938081890 (3) Small bowel obstruction Current Visit: Yes Status: Acute Code(s): K56.609 - UNSP INTESTNL OBST, UNSP TO PARTIAL VERSUS COMPLETE OBST SNOMED Code(s): 525390178 Plan: 1patient with low-grade fever elevated white count and this patient presented to hospital with abdominal pain and bloating and has been diagnosed with the small bowel obstruction likely etiology for his low-grade fever and elevated white count chest x-ray repeated yesterday did not mention any pneumonia and did have a positive UA however source more likely abdominal and need to cover for enteric gram-negative anaerobes and anaerobes 2-patient did have resolution of his fever white count normal, patient still have significant abdominal tenderness and possible plan for surgical intervention per surgery we will continue patient on Zosyn. Family at the bedside questions answered Dictation was produced using Pango dictation software. please excuse any grammatical, word or spelling errors. Time with Patient: Less than 30
[2023-08-08] MEDS: LIDOCAINE 1%-EPI 1:100,000 50 ML VIAL SQ ONE ×2 (19:00→19:29)
[2023-08-08] MEDS: LACTATED RINGERS 1,000 ML IV ONE (19:28)
[2023-08-08] MEDS: LIDOCAINE 1%/EPI 1:200,000 MPF 10 ML VIAL SQ ONE (19:29)
--- NOTE | 2023-08-08 21:00 | P.OP ---
Date of Procedure: 08/08/23 Description of Procedure: SURGEON: MIO DAY MD PREOPERATIVE DIAGNOSES: 1. Small bowel obstruction 2. Acute renal failure 3. Sigmoid diverticulosis 4. Left lower quadrant abdominal pain POSTOPERATIVE DIAGNOSES: 1. Small bowel obstruction due to adhesion, lower pelvis left lower quadrant 2. Acute renal failure 3. Sigmoid diverticulosis 4. Left lower quadrant abdominal pain 5. Internal hernia pelvis OPERATION: 1. Robotic-assisted da Artie Xi laparoscopic with lysis of adhesions, extensive 2. Decompressive enterostomy ESTIMATED BLOOD LOSS: 5 mL. SPECIMENS REMOVED: None. COMPLICATIONS: None. OPERATIVE FINDINGS: 1. Bilateral inguinal hernias, indirect 2. Severe sigmoid diverticulosis without diverticulitis 3. Severe small bowel diverticulosis, jejunum 4. Volvulus right lower quadrant reduced 5. Mesenteric adhesive band from sigmoid colon to abdominal wall creating bowel obstruction with transition point released 6. Multiple pelvic adhesions involving sigmoid colon released 7. Decompressive enterostomy performed for appropriate interrogation of the small bowel from the cecum to the ligament of Treitz. 8. Nasogastric tube placed with enteric content obtained at the end of the case INDICATIONS: The patient is a 83-year-old male who presents with persistent bowel obstruction despite conservative measures. Per request of family, minimal invasive technique was present sought. Possibility of open technique and including bowel resection and colostomy was described. Patient was changed from no CODE STATUS to full CODE STATUS to perform procedure as obtained by his daughter Edwige, power of outpatient interviewing clerk. Benefits and risks of the procedure i ncluding but not limited to bleeding, infection was described. Informed consent was obtained. DESCRIPTION OF PROCEDURE: Patient was brought to the operating room, placed in supine position. After general induction, the abdomen had been prepped and draped in standard sterile fashion. The robotic da Artie XI system was primed. After a timeout protocol was performed, the patient had been prepped and draped in standard sterile fashion. The robot was docked along the left lateral abdomen. Please note prior to docking of the robot; however, a 5 mm 0 degrees laparoscopic trocar entry was performed along the left upper quadrant. Next, three 8 mm robotic ports were placed along the left lateral abdominal wall abdomen. Trochars were placed at least 10 to 15 cm away from the target anatomy. Instruments including graspers and scissors with cautery were interchanged by the minister assistant. I had sat at the console. Greater omental adhesion to the lower abdominal wall at the pelvis was identified and sharply divided using Endo scissors with cautery. Hemostasis was checked. The sigmoid colon was highly redundant. No large or small bowel obstruction was identified. The robot was undocked. All pneumoperitoneum and instruments were evacuated from the abdominal cavity. The incisions were reapproximated using 4-0 Monocryl in an interrupted subcuticular fashion. Please note along the trocar sites, local anesthetic was placed as a field block prior to insertion of all instruments. Exofin was applied to the skin. At the end of the procedure needle, sponge, and instrument count had been verified correct by the neurosurgical nurse practitioner. The patient was transferred to postanesthesia care unit in stable condition.
[2023-08-08] MEDS: ACETAMINOPHEN IV (For NPO) 1,000 MG/100 ML VIAL IVPB ONE (21:39)
[2023-08-08] MEDS: HEPARIN SODIUM,PORCINE 5,000 UNIT/ML 1 ML VIAL SQ SCH (22:18)
[2023-08-09 00:05] LABS: Glucose,Whole Blood 81 mg/dL (70-110)
[2023-08-09] MEDS: ACETAMINOPHEN IV (For NPO) 1,000 MG in EMPTY BAG 1 BAG IVPB ONE (00:10)
[2023-08-09 06:21] LABS: Glucose,Whole Blood 91 mg/dL (70-110)
[2023-08-09] MEDS: LIDOCAINE 1% INJ 10MG/ML (30 ML VIAL-PF) SQ ONE (10:03)
--- NOTE | 2023-08-09 10:10 | P.OP ---
Date of Procedure: 08/09/23 Description of Procedure: Date of Procedure: 06/10/2023 Preoperative Diagnosis: Need for long-term IV antibiotic access. Postoperative Diagnosis: Same. Procedure(s) Performed: Ultrasound-guided cannulation right basilic vein. Insertion of peripherally inserted central catheter under fluoroscopic guidance. Anesthesia: local (1% Xylocaine.) Surgeon: Paloma Estimated Blood Loss (ml): 5 IV fluids (ml): 0 Urine output (ml): 0 Pathology: none sent Condition: stable Disposition: no change Indications for Procedure: Patient is a patient will require long-term IV antibiotics as an outpatient patient is offered a PICC line to allow for intravenous administration of antibiotics. Description of Procedure: Patient was brought to the special procedure suite. The right upper extremity sterilely prepped and draped in usual manner. Ultrasound was utilized to identify the basilic vein which was normally compressible free of visible thrombus. Permenant image was stored. 1% Xylocaine was utilized for local anesthesia tissues overlying the vein. Through this anesthetized area and with the aid of ultrasound a micropuncture needle was utilized to cannulate the vein. Once cannulated, Softip guidewire was advanced into the vein. The needle was withdrawn and a micropuncture sheath and dilator advanced over the guidewire. The guidewire was withdrawn and exchanged for the PICC guidewire and measured 36 cm to the cavoatrial junction. The catheter was cut to size and advanced into the cavoatrial junction without resistance. The sheath was peeled away. Blood was easily withdrawn through the catheter and the catheter was then flushed with heparinized saline solution and secured to the skin. Patient tolerated procedure well and was returned to their room in satisfactory and stable condition.
--- NOTE | 2023-08-09 11:23 | IR ---
EXAMINATION TYPE: IR cvc insert >=5 years DATE OF EXAM: 08/09/2023 COMPARISON: 07/29/2022 HISTORY: Pulmonary fibrosis COPD CT DLP: 759 mGycm, Automated exposure control for dose reduction was used. CONTRAST: Performed injected with 0 mL of Isovue 300. TECHNIQUE: Axial images were obtained at 5 mm thick sections. Reconstructed images are reviewed on [employer] computer in the coronal plane. FINDINGS: Portion of the thyroid visualized is normal. Round glass opacities are in the upper lung field. There is some mild peripheral pulmonary fibrosis o f the anterior lateral right lung base of additional pulmonary fibrosis. Fibrosis is within the mid a nterior left lung. Groundglass opacities in pulmonary fibrosis present at the bilateral lung bases. F indings appear stable. There is a 1.0 cm lymph node adjacent to the anterior aortic arch. Smaller lymph nodes are in the me diastinum. Lower pretracheal lymph node is enlarged measuring 1.4 cm. This was present previously. Th ere is a pretracheal lymph node measuring 0.9 cm. The ascending aorta diameter at the level of the main pulmonary artery is 8.4 cm. The main pulmonary artery diameter at the bifurcation is 3.1 cm. Coronary artery calcification is present. Limited CT sections are obtained through the upper abdomen. Abdomen is essentially unremarkable. IMPRESSION: 1. Stable appearing groundglass opacities and pulmonary fibrosis present bilaterally and within upper and lower lung martinez. 2. Stable enlarged pretracheal lymph node. Additional nonenlarged lymphadenopathy is discussed above.
[2023-08-09] MEDS: ACETAMINOPHEN IV (For NPO) 1,000 MG in EMPTY BAG 1 BAG IVPB SCH (11:50)
[2023-08-09 11:59] LABS: Glucose,Whole Blood 104 mg/dL (70-110)
[2023-08-09 12:31] LABS: Basophils % (A) 0 %; Eosinophils # (A) 0.1 k/uL (0-0.7); Eosinophils % (A) 1 %; HCT 33.9 % (39.0-53.0); HGB 10.8 gm/dL (13.0-17.5); Lymphocytes # (A) 0.6 k/uL (1.0-4.8); Lymphocytes % (A) 7 %; MCH 28.8 pg (25.0-35.0); MCV 90.2 fL (80.0-100.0); Mean Platelet Volume 7.5; Monocytes # (A) 0.4 k/uL (0-1.0); Monocytes % (A) 5 %; Neutrophils % (A) 86 %; Platelet Count 355 k/uL (150-450); RBC 3.75 m/uL (4.30-5.90); RDW 14.4 % (11.5-15.5); WBC 9.3 k/uL (3.8-10.6)
[2023-08-09 12:37] LABS: Potassium 4.4 mmol/L (3.5-5.1)
[2023-08-09 12:38] LABS: ALT 21 U/L (4-49); AST 32 U/L (17-59); African American GFR (CKD) 10 (>60 ml/min/1.73 sqM); Alkaline Phosphatase 65 U/L (38-126); Anion Gap 8 mmol/L; Blood Urea Nitrogen 87 mg/dL (9-20); Calcium 7.3 mg/dL (8.4-10.2); Carbon Dioxide 22 mmol/L (22-30); Chloride 110 mmol/L (98-107); Glucose 116 mg/dL (74-99); Non-African American GFR(CKD) 9 (>60 ml/min/1.73 sqM); Sodium 140 mmol/L (137-145); Total Bilirubin 0.4 mg/dL (0.2-1.3); Total Protein 4.3 g/dL (6.3-8.2)
--- NOTE | 2023-08-09 13:12 | P.PN ---
Subjective Progress Note Date: 08/09/23 Progress note Date of service 08/09/[address] Griffin. Patient seen and evaluated at bedside Patient underwent robotic laparoscopy with the small bowel obstruction with adhesion done on 08/08/2023 detailed surgery on the note of Dr. Pinzon the surgeon. Patient also underwent ultrasound guided cannulation of the right basilic vein for continued insertion of central catheter for prolonged antibiotic. By Jessica Mcgee. Vascular surgeon Patient did not have yet dialysis catheter as the decision of dialysis for acute kidney injury not done yet. Robotic assisted da Artie XI laparoscopic with adhesion lysis extensive and decompressive enterostomy with the diagnosis postoperative Small bowel obstruction due to adhesion and lower pelvis left lower quadrant Acute renal failure Sigmoid diverticulosis Left lower quadrant abdominal pain Internal hernia of the pelvis. This note Dr. Pinzon the surgeon. Operative note Today's vital sign: Temperature 97.8 F oral, heart rate [id number], respiratory rate ranging between 18-22 Blood pressure 119/73 with a mean 88, oxygen saturation 90 by nasal cannula 3 L. Laboratories: WBC 9.3, hemoglobin 10.8, hematocrit 33.9. Chemistry sodium 140, potassium 4.4, BUN 87, estimated glomerular filtration rate for non- 9 and creatinine 5.53, blood sugar glucose 116 AST 32 ALT 21 alk phos 65 with total protein 4.3 and albumin 2 On examination: Head and neck no change, dry mouth, patient n.p.o., also has nasogastric tube for suction., Dow catheter continue Neck supple no JVD no lymphadenopathy. Chest: Breath sounds with lower atelectasis of the lung field no wheezes or rhonchi Heart regular tachycardia. Abdomen: Status post robotic laparoscopic surgery, pain and tenderness, normal bowel sounds. NG tube in place for suction. Extremities no edema and positive pulses. Assessment: 1. Status post robotic assisted laparoscopy for the small bowel obstruction with adhesion and diverticulosis 2. Acute kidney injury with acute renal failure monitored by nephrology 3. Tachycardia and monitored by cardiology 4. Antibiotics and treatment monitored by infectious disease. 5. His critical condition and pulmonary monitored by critical care and pulmonary group of Dr. Schreiber. Recommendations and plan: Patient still critically present monitored and will follow May need hemodialysis with the insertion of dialysis catheter that decision will be done by nephrology. Objective - Vital Signs Vital signs: Vital Signs Temp 97.8 F 08/09/23 11:45 Pulse 103 H 08/09/23 11:59 Resp 18 08/09/23 11:55 BP 119/73 08/09/23 11:45 Pulse Ox 90 L 08/09/23 11:45 FiO2 Intake & Output 08/08/23 08/09/23 08/09/23 18:59 06:59 18:59 Intake Total 320 500 0 Output Total 400 580 Balance -80 -80 0 Weight 77.111 kg Intake: IV 320 500 Invasive Line 5 10 Invasive Line 6 10 Oral 0 Output: Gastric Drainage 100 Urine 400 475 Estimated Blood Loss 5 Other: Voiding Method Indwelling Catheter Indwelling Catheter Indwelling Catheter - Labs CBC & Chem 7: 08/09/23 12:10 08/09/23 12:10 Labs: Abnormal Lab Results - Last 24 Hours (Table) 08/09/23 08/09/23 Range/Units 12:10 12:10 RBC 3.75 L (4.30-5.90) m/uL Hgb 10.8 L (13.0-17.5) gm/dL Hct 33.9 L (39.0-53.0) % Neutrophils # 8.0 H (1.3-7.7) k/uL Lymphocytes # 0.6 L (1.0-4.8) k/uL Chloride 110 H (98-107) mmol/L BUN 87 H (9-20) mg/dL Creatinine 5.53 H (0.66-1.25) mg/dL Glucose 116 H (74-99) mg/dL Calcium 7.3 L (8.4-10.2) mg/dL Total Protein 4.3 L (6.3-8.2) g/dL Albumin 2.0 L (3.5-5.0) g/dL Microbiology - Last 24 Hours (Table) 08/03/23 17:13 Blood Culture - Final Blood 08/03/23 17:09 Blood Culture - Final Blood
--- NOTE | 2023-08-09 13:24 | P.PN ---
Subjective patient is seen for follow-up for acute kidney injury. serum creatinine at 5.5 today. Patient continues to have fair urine output. 925 mL for last 24 hours. He has an indwelling Dow catheter. Patient has been confused according to nursing staff. currently with NG tube. Objective - Vital Signs Vital signs: Vital Signs Temp 97.8 F 08/09/23 11:45 Pulse 103 H 08/09/23 11:59 Resp 18 08/09/23 11:55 BP 119/73 08/09/23 11:45 Pulse Ox 90 L 08/09/23 11:45 FiO2 Intake & Output 08/08/23 08/09/23 08/09/23 18:59 06:59 18:59 Intake Total 320 500 0 Output Total 400 580 Balance -80 -80 0 Weight 77.111 kg Intake: IV 320 500 Invasive Line 5 10 Invasive Line 6 10 Oral 0 Output: Gastric Drainage 100 Urine 400 475 Estimated Blood Loss 5 Other: Voiding Method Indwelling Catheter Indwelling Catheter Indwelling Catheter - Exam patient is sleeping, comfortable. arousable but falls back to sleep No acute distress He has been confused Examination of the heart S1 and S2 Examination of the lungs bilateral breath sounds are heard Abdomen is soft nontender Examination of lower extremities shows no significant edema [employer] exam shows patient is moving all 4 extremities, he has been confused. - Labs CBC & Chem 7: 08/09/23 12:10 08/09/23 12:10 Labs: Abnormal Lab Results - Last 24 Hours (Table) 08/09/23 08/09/23 Range/Units 12:10 12:10 RBC 3.75 L (4.30-5.90) m/uL Hgb 10.8 L (13.0-17.5) gm/dL Hct 33.9 L (39.0-53.0) % Neutrophils # 8.0 H (1.3-7.7) k/uL Lymphocytes # 0.6 L (1.0-4.8) k/uL Chloride 110 H (98-107) mmol/L BUN 87 H (9-20) mg/dL Creatinine 5.53 H (0.66-1.25) mg/dL Glucose 116 H (74-99) mg/dL Calcium 7.3 L (8.4-10.2) mg/dL Total Protein 4.3 L (6.3-8.2) g/dL Albumin 2.0 L (3.5-5.0) g/dL Microbiology - Last 24 Hours (Table) 08/08/23 20:10 Gram Stain - Preliminary Other - Other 08/03/23 17:13 Blood Culture - Final Blood 08/03/23 17:09 Blood Culture - Final Blood Assessment and Plan Assessment: 1. Acute kidney injury secondary to ATN. nonoliguric. Creatinine at 5.5 today. No hydronephrosis noted on CAT scan. hold renal replacement therapy for now. 2. Chronic kidney disease stage IIIb with baseline creatinine 1.3-1.5 secondary to nephrosclerosis. 3. Partial small bowel obstruction. status post robotic-assisted laparoscopic lysis of adhesions and decompressive enterostomy on 08/08/2023. 4. Metabolic acidosis secondary to acute kidney injury and IV fluids. 5. Atrial tachycardia, status post Cardizem drip Plan: continue IV fluids Hold hemodialysis as renal function has improved. however his serum creatinine not further improvement tomorrow I will proceed with more dialysis. Repeat labs in a.m. Continue to avoid nephrotoxic agents.
[2023-08-09 14:22] LABS: C-ANCA <1:20 Titer (<1:20)
--- NOTE | 2023-08-09 15:20 | P.PN ---
Subjective Progress Note Date: 08/09/23 Principal diagnosis: Small bowel obstruction. This is a 83-year-old male patient with a known history of coronary artery disease with previous stent placement, dementia, hypertension, hyperlipidemia, hypothyroidism, non-smoker who presented here to the emergency room on 08/01/2023 with abdominal pain. He had been followed by surgical services. He did have a nasogastric tube which had approximately 2100 cc output once put in. However the patient inadvertently pulled it out last night. Today he had developed increased abdominal discomfort, tachycardia and shortness of breath. We were consulted for possible transfer to the ICU. He is seen today on the regular medical floor. He is awake and alert. He denies any pain at rest. He is tender to palpation. He is tachycardic, sinus. Currently afebrile. Continue O2 saturations in the mid 90s on 3 L/min per nasal cannula. Blood pressure stable. Blood cultures reveal no growth. White count 8.5. Hemoglobin 12.6. Platelets 373. Sodium 139. Potassium 4.6. Bicarb 14. BUN 34. Creatinine 3.11. Glucose 88. Amylase 73. Lipase 49. CT scan of the abdomen today revealed bowel obstruction pattern. Small amount of free fluid. Chest x-ray reveals no acute cardiopulmonary process. A nasogastric tube has been reinserted and in good position. He is currently on Zosyn. Patient was seen and examined today on 08/05/2023, patient is doing much better today compared to the last 2 days, less abdominal pain, no nausea no vomiting, continues to have nasogastric tube in place.WBC count is 9.9 hemoglobin 11.3 basic metabolic profile is normal however his renal functioning is worse with BUN up to 69 creatinine 5.60, and that is being addressed by nephrology on the case. His acute kidney injury is felt to be related to hemodynamic ATN, no hydronephrosis on CT of the abdomen, patient does have history of chronic kidney disease stage IIIb. Patient is on Cardizem drip now for atrial tachycardia. And cardiology is following Reevaluate today on 08/06/23, patient pulled his nasogastric tube yesterday, continues to have abdominal distention and abdominal pain. Apparently multiple attempts by nurses to place the nasogastric tube were unsuccessful. Surgery is to address the nasogastric tube placement and or exploratory laparotomy on this patient to relieve his bowel obstruction.WBC count today is 8.4 hemoglobin 10.4, basic metabolic profile is normal renal profile is worsening with a BUN of 85 creatinine 6.08 and his renal profile is being addressed by nephrology on the case Patient was reevaluated today on 08/07/2023, continues to have abdominal pain, continues to have small bowel obstruction, and now he is developing worsening renal disease. From the looks of it, patient may be heading towards dialysis. Patient was seen by Dr. Truong today, and I believe he is recommending exploratory laparotomy after he is seen by Dr. Goodman tomorrow. Continues to have decent urine output, 600 cc in the last 8 hours. Could not have a nasogastric tube placed back, patient is getting in Progress note dated August 08, 2023. 83-year-old male seen in room 378. The patient is currently on 2 L of oxygen. The patient is getting dextrose with half-normal saline at 100 cc an hour. He does have a significantly tender abdomen, anytime he burps, or coughs. Also, he is tender on palpation. Current labs include a white count 9.5, hemoglobin 11.4, hematocrit 36, and a platelet count of 343,000. Sodium 143, potassium 4.2, chlorides 107, CO2 27, BUN 93, creatinine 5.62. Calcium is 8, with a phosphorus of 5.4. Glucose is 97. Blood cultures are negative. Progress note dated August 09, 2023. 83-year-old male seen today in room 378. The patient is currently on 3 L of oxygen. NG tube remains in place. He is getting D5 with half-normal saline at 100 cc an hour. The patient has significant abdominal pain on palpation of the abdomen. Labs today include a white count 9.3, hemoglobin 10.8, hematocrit 33.9, and a platelet count of 355,000. Sodium 140, potassium 4.4, chlorides 110, CO2 22, BUN 87, and creatinine 5.53. Glucose is 116. Albumin is 2. All microbiologic sampling is thus far negative. Objective - Vital Signs Vital signs: Vital Signs Temp 97.8 F 08/09/23 11:45 Pulse 103 H 08/09/23 11:59 Resp 18 08/09/23 11:55 BP 119/73 08/09/23 11:45 Pulse Ox 90 L 08/09/23 11:45 FiO2 Intake & Output 08/08/23 08/09/23 08/09/23 18:59 06:59 18:59 Intake Total 320 500 0 Output Total 400 580 250 Balance -80 -80 -250 Weight 77.111 kg 77.111 kg Intake: IV 320 500 Invasive Line 5 10 Invasive Line 6 10 Oral 0 Output: Gastric Drainage 100 250 Urine 400 475 Estimated Blood Loss 5 Other: Voiding Method Indwelling Catheter Indwelling Catheter Indwelling Catheter - Exam No acute distress, oriented 3. The patient is currently on 3 L. No respiratory difficulty. HEENT examination is grossly unremarkable. Mucous membranes are moist. No oral lesions. An NG tube was noted. Neck supple. Full range of motion. No adenopathy thyromegaly or neck vein distention. Cardiovascular examination reveals regular rhythm rate. S1-S2 normal. No S3 or S4. No discernible murmur noted. Heart rate is 1 3 bpm. Lungs reveal clear breath sounds. Breath sounds are equal bilaterally. No adventitious lung sounds including wheezes rhonchi or crackles. 3 L saturation is 91%. Abdomen is tender on palpation. No bowel sounds. Extremities are intact. No cyanosis clubbing or edema. Skin is without rash or lesion. Neurologic examination is brief but nonfocal. - Labs CBC & Chem 7: 08/09/23 12:10 08/09/23 12:10 Labs: Abnormal Lab Results - Last 24 Hours (Table) 08/09/23 08/09/23 Range/Units 12:10 12:10 RBC 3.75 L (4.30-5.90) m/uL Hgb 10.8 L (13.0-17.5) gm/dL Hct 33.9 L (39.0-53.0) % Neutrophils # 8.0 H (1.3-7.7) k/uL Lymphocytes # 0.6 L (1.0-4.8) k/uL Chloride 110 H (98-107) mmol/L BUN 87 H (9-20) mg/dL Creatinine 5.53 H (0.66-1.25) mg/dL Glucose 116 H (74-99) mg/dL Calcium 7.3 L (8.4-10.2) mg/dL Total Protein 4.3 L (6.3-8.2) g/dL Albumin 2.0 L (3.5-5.0) g/dL Microbiology - Last 24 Hours (Table) 08/08/23 20:10 Gram Stain - Preliminary Other - Other 08/03/23 17:13 Blood Culture - Final Blood 08/03/23 17:09 Blood Culture - Final Blood Assessment and Plan Assessment: Abdominal pain, secondary to bowel obstruction. Acute hypoxemic respiratory failure, secondary to COPD. Patient a lifelong non-smoker. History of coronary artery disease, with previous stent placement. History of hypertension. History of hyperlipidemia. History of hypothyroidism. History of dementia. Plan: Plan dated August 08, 2023. The patient is stable from the pulmonary status. Labs, x-rays, medications are reviewed. We will continue to follow, make recommendations along the way. The patient in the end, may need an exploratory laparotomy, to determine, his intra-abdominal pathology. Nephrology is addressing his worsening renal pattern. Additional recommendations and suggestions are forthcoming. We will continue to follow. Plan dated August 09, 2023. The patient now has an NG tube in place. He is getting oxygen by nasal cannula at 3 L. In addition, he is getting dextrose with half-normal saline at 100 cc an hour. The patient still has significant abdominal tenderness on palpation. Labs, x-rays, and medications are all reviewed. We will continue to follow make recommendations along the way. Prognosis is certainly guarded. No plans for surgery at this time. Time with Patient: Less than 30
--- NOTE | 2023-08-09 15:38 | P.PN ---
Subjective Progress Note Date: 08/09/23 CHIEF COMPLAINT: Abdominal pain HISTORY OF PRESENT ILLNESS: Patient with small bowel obstruction status post robotic assisted laparoscopic lysis of adhesions and decompressive enterostomy. Patient had PICC line placed today. He denies any nausea or vomiting. He has NG tube in place with 250 mL output. He denies any bowel activity. He does complain of abdominal pain. He has been mildly tachycardic. Afebrile. WBC 9.3 hgb 10.8 plt 355. Per nursing staff patient had a coughing episode with the cl ear liquids. There was concern for aspiration. He is now NPO. PHYSICAL EXAM: VITAL SIGNS: Reviewed GENERAL: Well-developed in no acute distress. HEENT: No sclera icterus. Extraocular movements grossly intact. Moist buccal mucosa. Head is atraumatic, normocephalic. Hears conversational speech. No nasal drainage. NECK: Supple without lymphadenopathy. CHEST: Non-labored respirations and equal bilateral excursions. CARDIOVASCULAR: Palpable 2+ radial pulses. ABDOMEN: Tenderness at incision sites. Nondistended. MUSCULOSKELETAL: No clubbing or cyanosis. NEUROLOGIC: No focal or lateralizing signs. Cranial nerves II through XII grossly intact. PSYCH: Appropriate affect. Alert and oriented to person, place and time. SKIN: Well perfused. Good skin turgor. ASSESSMENT: 1. Small bowel obstruction due to adhesion, lower pelvis left lower quadrant 2. Acute renal failure 3. Sigmoid diverticulosis 4. Left lower quadrant abdominal pain 5. Internal hernia pelvis PLAN: -IV Tylenol restarted for pain control -Continue antibiotics -TPN to be started for nutrition support -Continue NG tube for decompression -Keep patient n.p.o. and agree with speech therapy consult for swallow evaluation Physician Employee Health Nurse note has been reviewed by physician. Signing provider agrees with the documented findings, assessment, and plan of care. Objective - Vital Signs Vital signs: Vital Signs Temp 97.8 F 08/09/23 11:45 Pulse 103 H 08/09/23 11:59 Resp 18 08/09/23 11:55 BP 119/73 08/09/23 11:45 Pulse Ox 90 L 08/09/23 11:45 FiO2 Intake & Output 08/08/23 08/09/23 08/09/23 18:59 06:59 18:59 Intake Total 320 500 0 Output Total 400 580 250 Balance -80 -80 -250 Weight 77.111 kg 77.111 kg Intake: IV 320 500 Invasive Line 5 10 Invasive Line 6 10 Oral 0 Output: Gastric Drainage 100 250 Urine 400 475 Estimated Blood Loss 5 Other: Voiding Method Indwelling Catheter Indwelling Catheter Indwelling Catheter - Labs CBC & Chem 7: 08/09/23 12:10 08/09/23 12:10 Labs: Abnormal Lab Results - Last 24 Hours (Table) 08/09/23 08/09/23 Range/Units 12:10 12:10 RBC 3.75 L (4.30-5.90) m/uL Hgb 10.8 L (13.0-17.5) gm/dL Hct 33.9 L (39.0-53.0) % Neutrophils # 8.0 H (1.3-7.7) k/uL Lymphocytes # 0.6 L (1.0-4.8) k/uL Chloride 110 H (98-107) mmol/L BUN 87 H (9-20) mg/dL Creatinine 5.53 H (0.66-1.25) mg/dL Glucose 116 H (74-99) mg/dL Calcium 7.3 L (8.4-10.2) mg/dL Total Protein 4.3 L (6.3-8.2) g/dL Albumin 2.0 L (3.5-5.0) g/dL Microbiology - Last 24 Hours (Table) 08/08/23 20:10 Gram Stain - Preliminary Other - Other 08/03/23 17:13 Blood Culture - Final Blood 08/03/23 17:09 Blood Culture - Final Blood
--- NOTE | 2023-08-09 16:32 | P.PN ---
Subjective Progress Note Date: 08/09/23 Principal diagnosis: Reason for follow-up is fever likely abdominal source Patient is a 83-year-old male with a past medical history significant for coronary disease COPD dementia hypertension hyperlipidemia reflux presenting to the hospital for evaluation of abdominal pain bloating has been diagnosed with the distal small bowel obstruction developing a fever concerning for possible abdominal sepsis prompting this consultation. On today's evaluation that is 08/09/2023, Patient is afebrile patient is currently on room air and seems to be breathing comfortably the patient NG has been placed back patient is slightly lethargic not a very good historian no vomiting or diarrhea reported by the sitter at the bedside. Patient white count is 9.3, creatinine is 5.53 blood culture has been negative Objective - Vital Signs Vital signs: Vital Signs Temp 97.8 F 08/09/23 11:45 Pulse 114 H 08/09/23 16:18 Resp 18 08/09/23 11:55 BP 119/73 08/09/23 11:45 Pulse Ox 90 L 08/09/23 11:45 FiO2 Intake & Output 08/08/23 08/09/23 08/09/23 18:59 06:59 18:59 Intake Total 320 500 0 Output Total 400 580 250 Balance -80 -80 -250 Weight 77.111 kg 77.111 kg Intake: IV 320 500 Invasive Line 5 10 Invasive Line 6 10 Oral 0 Output: Gastric Drainage 100 250 Urine 400 475 Estimated Blood Loss 5 Other: Voiding Method Indwelling Catheter Indwelling Catheter Indwelling Catheter - Exam GENERAL DESCRIPTION: An elderly male up in the chair in no distress RESPIRATORY SYSTEM: Unlabored breathing , decreased breath sounds at bases HEART: S1 S2 regular rate and rhythm , ABDOMEN: Soft , no tenderness EXTREMITIES: No edema feet - Labs CBC & Chem 7: 08/09/23 12:10 08/09/23 12:10 Labs: Abnormal Lab Results - Last 24 Hours (Table) 08/09/23 08/09/23 Range/Units 12:10 12:10 RBC 3.75 L (4.30-5.90) m/uL Hgb 10.8 L (13.0-17.5) gm/dL Hct 33.9 L (39.0-53.0) % Neutrophils # 8.0 H (1.3-7.7) k/uL Lymphocytes # 0.6 L (1.0-4.8) k/uL Chloride 110 H (98-107) mmol/L BUN 87 H (9-20) mg/dL Creatinine 5.53 H (0.66-1.25) mg/dL Glucose 116 H (74-99) mg/dL Calcium 7.3 L (8.4-10.2) mg/dL Total Protein 4.3 L (6.3-8.2) g/dL Albumin 2.0 L (3.5-5.0) g/dL Microbiology - Last 24 Hours (Table) 08/08/23 20:10 Gram Stain - Preliminary Other - Other 08/03/23 17:13 Blood Culture - Final Blood 08/03/23 17:09 Blood Culture - Final Blood Assessment and Plan (1) Fever Current Visit: Yes Status: Acute Code(s): R50.9 - FEVER, UNSPECIFIED SNOMED Code(s): 280263667 (2) Leukocytosis Current Visit: Yes Status: Acute Code(s): D72.829 - ELEVATED WHITE BLOOD CELL COUNT, UNSPECIFIED SNOMED Code(s): 086851714 (3) Small bowel obstruction Current Visit: Yes Status: Acute Code(s): K56.609 - UNSP INTESTNL OBST, UNSP TO PARTIAL VERSUS COMPLETE OBST SNOMED Code(s): 719660358 Plan: 1patient with low-grade fever elevated white count and this patient presented to hospital with abdominal pain and bloating and has been diagnosed with the small bowel obstruction likely etiology for his low-grade fever and elevated white count chest x-ray repeated yesterday did not mention any pneumonia and did have a positive UA however source more likely abdominal and need to cover for enteric gram-negative anaerobes and anaerobes 2-patient did have resolution of his fever white count normal, patient to cont inue with the Zosyn await further recommendation from surgery Dictation was produced using [employer] dictation software. please excuse any grammatical, word or spelling errors. Time with Patient: Less than 30
[2023-08-09] MEDS: MVI, ADULT NO.4 WITH VIT K 10 ML, TRACE (CONC-1ML/DOSE) 1 ML, SODIUM ACETATE 34 MEQ, PO... IV SCH (17:09)
[2023-08-09] MEDS: FAT EMULSION 20% 250 ML in EMPTY BAG 1 BAG IV SCH (17:09)
[2023-08-09 17:49] LABS: Glucose,Whole Blood 159 mg/dL (70-110)
[2023-08-09 23:53] LABS: Glucose,Whole Blood 137 mg/dL (70-110)
[2023-08-10 06:14] LABS: Glucose,Whole Blood 143 mg/dL (70-110)
[2023-08-10 10:30] LABS: Ionized Calcium 4.6 mg/dL (4.5-5.3)
[2023-08-10 10:39] LABS: African American GFR (CKD) 10 (>60 ml/min/1.73 sqM); Anion Gap 13 mmol/L; Blood Urea Nitrogen 92 mg/dL (9-20); Calcium 7.8 mg/dL (8.4-10.2); Carbon Dioxide 20 mmol/L (22-30); Chloride 107 mmol/L (98-107); Glucose 123 mg/dL (74-99); Magnesium 1.9 mg/dL (1.6-2.3); Non-African American GFR(CKD) 9 (>60 ml/min/1.73 sqM); Phosphorus 5.2 mg/dL (2.5-4.5); Potassium 3.8 mmol/L (3.5-5.1); Sodium 140 mmol/L (137-145)
[2023-08-10 11:06] LABS: Basophils % (A) 0 %; Eosinophils # (A) 0.6 k/uL (0-0.7); Eosinophils % (A) 6 %; HCT 33.8 % (39.0-53.0); HGB 10.7 gm/dL (13.0-17.5); Lymphocytes # (A) 0.8 k/uL (1.0-4.8); Lymphocytes % (A) 8 %; MCH 29.1 pg (25.0-35.0); MCHC 31.6 g/dL (31.0-37.0); MCV 91.9 fL (80.0-100.0); Mean Platelet Volume 7.8; Monocytes # (A) 0.5 k/uL (0-1.0); Monocytes % (A) 5 %; Neutrophils # (A) 8.4 k/uL (1.3-7.7); Neutrophils % (A) 80 %; Platelet Count 384 k/uL (150-450); RBC 3.68 m/uL (4.30-5.90); RDW 14.6 % (11.5-15.5); WBC 10.5 k/uL (3.8-10.6)
[2023-08-10 11:57] LABS: Glucose,Whole Blood 178 mg/dL (70-110)
--- NOTE | 2023-08-10 12:02 | P.PN ---
Subjective Progress Note Date: 08/10/23 Principal diagnosis: Small bowel obstruction. This is a 83-year-old male patient with a known history of coronary artery disease with previous stent placement, dementia, hypertension, hyperlipidemia, hypothyroidism, non-smoker who presented here to the emergency room on 08/01/2023 with abdominal pain. He had been followed by surgical services. He did have a nasogastric tube which had approximately 2100 cc output once put in. However the patient inadvertently pulled it out last night. Today he had developed increased abdominal discomfort, tachycardia and shortness of breath. We were consulted for possible transfer to the ICU. He is seen today on the regular medical floor. He is awake and alert. He denies any pain at rest. He is tender to palpation. He is tachycardic, sinus. Currently afebrile. Continue O2 saturations in the mid 90s on 3 L/min per nasal cannula. Blood pressure stable. Blood cultures reveal no growth. White count 8.5. Hemoglobin 12.6. Platelets 373. Sodium 139. Potassium 4.6. Bicarb 14. BUN 34. Creatinine 3.11. Glucose 88. Amylase 73. Lipase 49. CT scan of the abdomen today revealed bowel obstruction pattern. Small amount of free fluid. Chest x-ray reveals no acute cardiopulmonary process. A nasogastric tube has been reinserted and in good position. He is currently on Zosyn. Patient was seen and examined today on 08/05/2023, patient is doing much better today compared to the last 2 days, less abdominal pain, no nausea no vomiting, continues to have nasogastric tube in place.WBC count is 9.9 hemoglobin 11.3 basic metabolic profile is normal however his renal functioning is worse with BUN up to 69 creatinine 5.60, and that is being addressed by nephrology on the case. His acute kidney injury is felt to be related to hemodynamic ATN, no hydronephrosis on CT of the abdomen, patient does have history of chronic kidney disease stage IIIb. Patient is on Cardizem drip now for atrial tachycardia. And cardiology is following Reevaluate today on 08/06/23, patient pulled his nasogastric tube yesterday, continues to have abdominal distention and abdominal pain. Apparently multiple attempts by nurses to place the nasogastric tube were unsuccessful. Surgery is to address the nasogastric tube placement and or exploratory laparotomy on this patient to relieve his bowel obstruction.WBC count today is 8.4 hemoglobin 10.4, basic metabolic profile is normal renal profile is worsening with a BUN of 85 creatinine 6.08 and his renal profile is being addressed by nephrology on the case Patient was reevaluated today on 08/07/2023, continues to have abdominal pain, continues to have small bowel obstruction, and now he is developing worsening renal disease. From the looks of it, patient may be heading towards dialysis. Patient was seen by Dr. Truong today, and I believe he is recommending exploratory laparotomy after he is seen by Dr. Goodman tomorrow. Continues to have decent urine output, 600 cc in the last 8 hours. Could not have a nasogastric tube placed back, patient is getting in Progress note dated August 08, 2023. 83-year-old male seen in room 378. The patient is currently on 2 L of oxygen. The patient is getting dextrose with half-normal saline at 100 cc an hour. He does have a significantly tender abdomen, anytime he burps, or coughs. Also, he is tender on palpation. Current labs include a white count 9.5, hemoglobin 11.4, hematocrit 36, and a platelet count of 343,000. Sodium 143, potassium 4.2, chlorides 107, CO2 27, BUN 93, creatinine 5.62. Calcium is 8, with a phosphorus of 5.4. Glucose is 97. Blood cultures are negative. Progress note dated August 09, 2023. 83-year-old male seen today in room 378. The patient is currently on 3 L of oxygen. NG tube remains in place. He is getting D5 with half-normal saline at 100 cc an hour. The patient has significant abdominal pain on palpation of the abdomen. Labs today include a white count 9.3, hemoglobin 10.8, hematocrit 33.9, and a platelet count of 355,000. Sodium 140, potassium 4.4, chlorides 110, CO2 22, BUN 87, and creatinine 5.53. Glucose is 116. Albumin is 2. All microbiologic sampling is thus far negative. Progress note dated August 10, 2023. 83-year-old male seen again in room 378. The patient again pulled out his NG tube. The patient is on room air. The patient is getting TPN at 30 cc an hour. The patient still has significant abdominal discomfort on palpation. I count 10.5, hemoglobin 10.7, hematocrit 33.8, and platelet count is 384,000. Sodium 140, potassium 3.8, chlorides 107, CO2 20, anion gap 13, BUN 92, creatinine 5.60. Glucose is 123. Magnesium 1.9. Phosphorus 5.2. Objective - Vital Signs Vital signs: Vital Signs Temp 97.5 F L 08/10/23 11:29 Pulse 101 H 08/10/23 11:46 Resp 14 08/10/23 11:32 BP 127/77 08/10/23 11:29 Pulse Ox 95 08/10/23 08:03 FiO2 Intake & Output 08/09/23 08/10/23 08/10/23 18:59 06:59 18:59 Intake Total 0 20 Output Total 250 550 Balance -250 -530 Weight 77.111 kg 77.111 kg Intake: IV 20 Invasive Line 5 10 Invasive Line 7 10 Oral 0 Output: Gastric Drainage 250 250 Urine 300 Other: Voiding Method Indwelling Catheter Indwelling Catheter Indwelling Catheter - Exam No acute distress, oriented 3. The patient is currently on room air. No respiratory difficulty. HEENT examination is grossly unremarkable. Mucous membranes are moist. No oral lesions. Neck supple. Full range of motion. No adenopathy thyromegaly or neck vein distention. Cardiovascular examination reveals regular rhythm rate. S1-S2 normal. No S3 or S4. No discernible murmur noted. Heart rate is 101 bpm. Lungs reveal clear breath sounds. Breath sounds are equal bilaterally. No adventitious lung sounds including wheezes rhonchi or crackles. Room air saturation is 93%. Abdomen is tender on palpation. No bowel sounds. Extremities are intact. No cyanosis clubbing or edema. Skin is without rash or lesion. Neurologic examination is brief but nonfocal. - Labs CBC & Chem 7: 08/10/23 09:28 08/10/23 09:28 Labs: Abnormal Lab Results - Last 24 Hours (Table) 08/09/23 08/09/23 08/09/23 Range/Units 12:10 12:10 17:47 RBC 3.75 L (4.30-5.90) m/uL Hgb 10.8 L (13.0-17.5) gm/dL Hct 33.9 L (39.0-53.0) % Neutrophils # 8.0 H (1.3-7.7) k/uL Lymphocytes # 0.6 L (1.0-4.8) k/uL Chloride 110 H (98-107) mmol/L Carbon Dioxide (22-30) mmol/L BUN 87 H (9-20) mg/dL Creatinine 5.53 H (0.66-1.25) mg/dL Glucose 116 H (74-99) mg/dL POC Glucose (mg/dL) 159 H (70-110) mg/dL Calcium 7.3 L (8.4-10.2) mg/dL Phosphorus (2.5-4.5) mg/dL Total Protein 4.3 L (6.3-8.2) g/dL Albumin 2.0 L (3.5-5.0) g/dL 08/09/23 08/10/23 08/10/23 Range/Units 23:50 06:12 09:28 RBC (4.30-5.90) m/uL Hgb (13.0-17.5) gm/dL Hct (39.0-53.0) % Neutrophils # (1.3-7.7) k/uL Lymphocytes # (1.0-4.8) k/uL Chloride (98-107) mmol/L Carbon Dioxide 20 L (22-30) mmol/L BUN 92 H (9-20) mg/dL Creatinine 5.60 H (0.66-1.25) mg/dL Glucose 123 H (74-99) mg/dL POC Glucose (mg/dL) 137 H 143 H (70-110) mg/dL Calcium 7.8 L (8.4-10.2) mg/dL Phosphorus 5.2 H (2.5-4.5) mg/dL Total Protein (6.3-8.2) g/dL Albumin (3.5-5.0) g/dL 08/10/23 08/10/23 Range/Units 09:28 11:55 RBC 3.68 L (4.30-5.90) m/uL Hgb 10.7 L (13.0-17.5) gm/dL Hct 33.8 L (39.0-53.0) % Neutrophils # 8.4 H (1.3-7.7) k/uL Lymphocytes # 0.8 L (1.0-4.8) k/uL Chloride (98-107) mmol/L Carbon Dioxide (22-30) mmol/L BUN (9-20) mg/dL Creatinine (0.66-1.25) mg/dL Glucose (74-99) mg/dL POC Glucose (mg/dL) 178 H (70-110) mg/dL Calcium (8.4-10.2) mg/dL Phosphorus (2.5-4.5) mg/dL Total Protein (6.3-8.2) g/dL Albumin (3.5-5.0) g/dL Microbiology - Last 24 Hours (Table) 08/08/23 20:10 Gram Stain - Preliminary Other - Other Wound Culture - Preliminary Gram Neg Bacilli Marybeth albicans Group D Enterococcus Assessment and Plan Assessment: Abdominal pain, secondary to bowel obstruction. Acute hypoxemic respiratory failure, secondary to COPD. Patient a lifelong non-smoker. History of coronary artery disease, with previous stent placement. History of hypertension. History of hyperlipidemia. History of hypothyroidism. History of dementia. Plan: Plan dated August 08, 2023. The patient is stable from the pulmonary status. Labs, x-rays, medications are reviewed. We will continue to follow, make recommendations along the way. The patient in the end, may need an exploratory laparotomy, to determine, his intra- abdominal pathology. Nephrology is addressing his worsening renal pattern. Additional recommendations and suggestions are forthcoming. We will continue to follow. Plan dated August 09, 2023. The patient now has an NG tube in place. He is getting oxygen by nasal cannula at 3 L. In addition, he is getting dextrose with half-normal saline at 100 cc an hour. The patient still has significant abdominal tenderness on palpation. Labs, x-rays, and medications are all reviewed. We will continue to follow make recommendations along the way. Prognosis is certainly guarded. No plans for surgery at this time. Plan dated August 10, 2023. The patient again pulled out his NG tube. Currently, he is on room air. The patient is receiving TPN at 30 cc an hour. Labs, x-rays, medications are reviewed. The patient still has significant abdominal tenderness. We will continue to follow make recommendations. Prognosis is guarded. The patient is a DO NOT RESUSCITATE patient. Time with Patient: Less than 30
--- NOTE | 2023-08-10 12:22 | P.PN ---
Subjective Progress Note Date: 08/10/23 Progress note Date of service 08/10/[address] Griffin Patient seen [id number] evaluated and he recently received Dilantin for pain and he was sleeping but easily awake and alert. Patient seen by speech pathology and placed him on p.o. Order for clear liquids by surgical team has been consulted. Vital sign temperature 97.5 L oral Heart rate 53246 1 Regular. 38 14/min nonlabored Blood pressure 127/77 with a mean 93 Patient on room air. Laboratory WBC 10.5, hemoglobin 10.7/hematocrit 33.8/MCV 91.9. Platelet count 384. Chemistry: Sodium 140, potassium 3.8, chloride 107, carbon dioxide 20 anion gap 13 BUN 92/creatinine 5.6 still persistent acute kidney injury with acute renal failure probably ATN, GFR 9, glucose 123. Patient on IV TPN per Dr. Lugo., Ionized calcium 4.6 and magnesium 1.9. Patient is seen and evaluated he able to be aroused with voice and he is awake alert he did not complain of pain however he had recently Dilaudid injection. Head was normocephalic and dryness of the oropharynx and need more glycerin swab. Neck was supple no JVD no thyromegaly. Chest breath sounds normal acceptable scattered rhonchi's, COPD and mild decreased air entry on the lower bases Heart regular sinus blood pressure is controlled. Abdomen status post robotic laparoscopy per Dr. Lugo with removal of the adhesions with the severe pain and small bowel obstruction No BM, no flatus so far and n.p.o. Extremities no edema positive pulses. Neurologically patient is intermittently confused which is has been before the surgery no new event and no lateralizing sign. Neuro Assessment: 1. Prolonged small bowel obstruction 2. Questionable diverticulitis however with the examination of Dr. Pinzon was diverticulosis. But intra-abdominal sepsis was associated with the initial leukocytosis. Dr. Simmons infectious disease on the case. 3. Wound culture indicating gram-negative bacilli Marybeth albicans and group D Enterococcus Dr. Simmons following the patient infectious disease. 4. Speech pathology evaluated the patient and started him on n.p.o. and canceled the surgical team clear liquid diet 5. COPD 6. Sinus tachycardia has been improved and blood pressure improved 7. Acute kidney injury with the acute renal failure on the top of the chronic kidney disease stage III [address] Cervantes following the patient. Plan: 1. Patient currently placed on TPN and IV nutritional support. 2. Continue the current treatment 3. Renal function has been followed by nephrology with the withholding dialysis so far. 4. Status post robotic laparoscopy with resolution of the adhesion per Dr. Pinzon's surgical 5. Patient followed by pulmonary and critical care Dr. Bautista 6. Patient followed by cardiology as well. 7. Patient general condition still critical Objective - Vital Signs Vital signs: Vital Signs Temp 97.5 F L 08/10/23 11:29 Pulse 101 H 08/10/23 11:46 Resp 14 08/10/23 11:32 BP 127/77 08/10/23 11:29 Pulse Ox 95 08/10/23 08:03 FiO2 Intake & Output 08/09/23 08/10/23 08/10/23 18:59 06:59 18:59 Intake Total 0 20 Output Total 250 550 Balance -250 -530 Weight 77.111 kg 77.111 kg Intake: IV 20 Invasive Line 5 10 Invasive Line 7 10 Oral 0 Output: Gastric Drainage 250 250 Urine 300 Other: Voiding Method Indwelling Catheter Indwelling Catheter Indwelling Catheter - Labs CBC & Chem 7: 08/10/23 09:28 08/10/23 09:28 Labs: Abnormal Lab Results - Last 24 Hours (Table) 08/09/23 08/09/23 08/09/23 Range/Units 12:10 12:10 17:47 RBC 3.75 L (4.30-5.90) m/uL Hgb 10.8 L (13.0-17.5) gm/dL Hct 33.9 L (39.0-53.0) % Neutrophils # 8.0 H (1.3-7.7) k/uL Lymphocytes # 0.6 L (1.0-4.8) k/uL Chloride 110 H (98-107) mmol/L Carbon Dioxide (22-30) mmol/L BUN 87 H (9-20) mg/dL Creatinine 5.53 H (0.66-1.25) mg/dL Glucose 116 H (74-99) mg/dL POC Glucose (mg/dL) 159 H (70-110) mg/dL Calcium 7.3 L (8.4-10.2) mg/dL Phosphorus (2.5-4.5) mg/dL Total Protein 4.3 L (6.3-8.2) g/dL Albumin 2.0 L (3.5-5.0) g/dL 08/09/23 08/10/23 08/10/23 Range/Units 23:50 06:12 09:28 RBC (4.30-5.90) m/uL Hgb (13.0-17.5) gm/dL Hct (39.0-53.0) % Neutrophils # (1.3-7.7) k/uL Lymphocytes # (1.0-4.8) k/uL Chloride (98-107) mmol/L Carbon Dioxide 20 L (22-30) mmol/L BUN 92 H (9-20) mg/dL Creatinine 5.60 H (0.66-1.25) mg/dL Glucose 123 H (74-99) mg/dL POC Glucose (mg/dL) 137 H 143 H (70-110) mg/dL Calcium 7.8 L (8.4-10.2) mg/dL Phosphorus 5.2 H (2.5-4.5) mg/dL Total Protein (6.3-8.2) g/dL Albumin (3.5-5.0) g/dL 08/10/23 08/10/23 Range/Units 09:28 11:55 RBC 3.68 L (4.30-5.90) m/uL Hgb 10.7 L (13.0-17.5) gm/dL Hct 33.8 L (39.0-53.0) % Neutrophils # 8.4 H (1.3-7.7) k/uL Lymphocytes # 0.8 L (1.0-4.8) k/uL Chloride (98-107) mmol/L Carbon Dioxide (22-30) mmol/L BUN (9-20) mg/dL Creatinine (0.66-1.25) mg/dL Glucose (74-99) mg/dL POC Glucose (mg/dL) 178 H (70-110) mg/dL Calcium (8.4-10.2) mg/dL Phosphorus (2.5-4.5) mg/dL Total Protein (6.3-8.2) g/dL Albumin (3.5-5.0) g/dL Microbiology - Last 24 Hours (Table) 08/08/23 20:10 Gram Stain - Preliminary Other - Other Wound Culture - Preliminary Gram Neg Bacilli Marybeth albicans Group D Enterococcus
--- NOTE | 2023-08-10 12:24 | P.PN ---
Subjective patient is seen for follow-up for acute kidney injury. renal function has not improved any further. Serum creatinine at 5.6 today. Patient remains confused. We will proceed with hemodialysis today. Patient pulled out his NG tube 24 hour urine output at 875 mL Objective - Vital Signs Vital signs: Vital Signs Temp 97.5 F L 08/10/23 11:29 Pulse 101 H 08/10/23 11:46 Resp 14 08/10/23 11:32 BP 127/77 08/10/23 11:29 Pulse Ox 95 08/10/23 08:03 FiO2 Intake & Output 08/09/23 08/10/23 08/10/23 18:59 06:59 18:59 Intake Total 0 20 Output Total 250 550 Balance -250 -530 Weight 77.111 kg 77.111 kg Intake: IV 20 Invasive Line 5 10 Invasive Line 7 10 Oral 0 Output: Gastric Drainage 250 250 Urine 300 Other: Voiding Method Indwelling Catheter Indwelling Catheter Indwelling Catheter - Exam patient is sleeping, comfortable. arousable but falls back to sleep No acute distress He has been confused Examination of the heart S1 and S2 Examination of the lungs bilateral breath sounds are heard Abdomen is soft nontender Examination of lower extremities shows no significant edema PATIENT ACCOUNT REPRESENTATIVE exam shows patient is moving all 4 extremities, he has been confused. - Labs CBC & Chem 7: 08/10/23 09:28 08/10/23 09:28 Labs: Abnormal Lab Results - Last 24 Hours (Table) 08/09/23 08/09/23 08/09/23 Range/Units 12:10 12:10 17:47 RBC 3.75 L (4.30-5.90) m/uL Hgb 10.8 L (13.0-17.5) gm/dL Hct 33.9 L (39.0-53.0) % Neutrophils # 8.0 H (1.3-7.7) k/uL Lymphocytes # 0.6 L (1.0-4.8) k/uL Chloride 110 H (98-107) mmol/L Carbon Dioxide (22-30) mmol/L BUN 87 H (9-20) mg/dL Creatinine 5.53 H (0.66-1.25) mg/dL Glucose 116 H (74-99) mg/dL POC Glucose (mg/dL) 159 H (70-110) mg/dL Calcium 7.3 L (8.4-10.2) mg/dL Phosphorus (2.5-4.5) mg/dL Total Protein 4.3 L (6.3-8.2) g/dL Albumin 2.0 L (3.5-5.0) g/dL 08/09/23 08/10/23 08/10/23 Range/Units 23:50 06:12 09:28 RBC (4.30-5.90) m/uL Hgb (13.0-17.5) gm/dL Hct (39.0-53.0) % Neutrophils # (1.3-7.7) k/uL Lymphocytes # (1.0-4.8) k/uL Chloride (98-107) mmol/L Carbon Dioxide 20 L (22-30) mmol/L BUN 92 H (9-20) mg/dL Creatinine 5.60 H (0.66-1.25) mg/dL Glucose 123 H (74-99) mg/dL POC Glucose (mg/dL) 137 H 143 H (70-110) mg/dL Calcium 7.8 L (8.4-10.2) mg/dL Phosphorus 5.2 H (2.5-4.5) mg/dL Total Protein (6.3-8.2) g/dL Albumin (3.5-5.0) g/dL 08/10/23 08/10/23 Range/Units 09:28 11:55 RBC 3.68 L (4.30-5.90) m/uL Hgb 10.7 L (13.0-17.5) gm/dL Hct 33.8 L (39.0-53.0) % Neutrophils # 8.4 H (1.3-7.7) k/uL Lymphocytes # 0.8 L (1.0-4.8) k/uL Chloride (98-107) mmol/L Carbon Dioxide (22-30) mmol/L BUN (9-20) mg/dL Creatinine (0.66-1.25) mg/dL Glucose (74-99) mg/dL POC Glucose (mg/dL) 178 H (70-110) mg/dL Calcium (8.4-10.2) mg/dL Phosphorus (2.5-4.5) mg/dL Total Protein (6.3-8.2) g/dL Albumin (3.5-5.0) g/dL Microbiology - Last 24 Hours (Table) 08/08/23 20:10 Gram Stain - Preliminary Other - Other Wound Culture - Preliminary Gram Neg Bacilli Marybeth albicans Group D Enterococcus Assessment and Plan Assessment: 1. Acute kidney injury secondary to ATN. nonoliguric. No hydronephrosis noted on CAT scan. renal function has not improved any further. We will proceed with hemodialysis today. 2. Chronic kidney disease stage IIIb with baseline creatinine 1.3-1.5 secondary to nephrosclerosis. 3. Partial small bowel obstruction. status post robotic-assisted laparoscopic lysis of adhesions and decompressive enterostomy on 08/08/2023. 4. Metabolic acidosis secondary to acute kidney injury and IV fluids. 5. Atrial tachycardia, status post Cardizem drip Plan: continue IV fluids consult vascular surgery for hemodialysis catheter placement and we will plan for first treatment today.
--- NOTE | 2023-08-10 12:45 | XR ---
EXAMINATION TYPE: XR abdomen 2V DATE OF EXAM: 08/10/2023 HISTORY: Pain. Technique: 2 views of the abdomen are submitted. Comparison: 08/06/23 Findings: There is persistent but much improved distention of small bowel. Mild ileal small bowel wall thickeni ng persists. Contrast is seen within the colon. No mass effects are noted. No renal calcifications are identified. IMPRESSION: 1. Findings are suggestive persistent but improving ileus or low-grade obstruction.
[2023-08-10] MEDS: ACETAMINOPHEN IV (For NPO) 1,000 MG in EMPTY BAG 1 BAG IVPB SCH (12:55)
--- NOTE | 2023-08-10 15:20 | P.PN ---
Subjective Progress Note Date: 08/10/23 CHIEF COMPLAINT: Abdominal pain HISTORY OF PRESENT ILLNESS: Patient with small bowel obstruction status post robotic assisted laparoscopic lysis of adhesions and decompressive enterostomy. Patient currently receiving TPN for nutrition support. He is complaining of abdominal pain today. Denies any flatus or bowel movement. Patient had minimal NG tube output. Patient pulled NG tube out. Patient evaluated by speech therapy they are recommending thickened liquids. Patient per nursing staff still having difficulty with thickened liquids. afebrile. mildly tachy. WBC 10.5 PHYSICAL EXAM: VITAL SIGNS: Reviewed GENERAL: Well-developed in no acute distress. HEENT: No sclera icterus. Extraocular movements grossly intact. Moist buccal mucosa. Head is atraumatic, normocephalic. Hears conversational speech. No nasal drainage. NECK: Supple without lymphadenopathy. CHEST: Non-labored respirations and equal bilateral excursions. CARDIOVASCULAR: Palpable 2+ radial pulses. ABDOMEN: Tenderness at incision sites. Nondistended. MUSCULOSKELETAL: No clubbing or cyanosis. NEUROLOGIC: No focal or lateralizing signs. Cranial nerves II through XII grossly intact. PSYCH: Appropriate affect. Alert and oriented to person, place and time. SKIN: Well perfused. Good skin turgor. ASSESSMENT: 1. Small bowel obstruction due to adhesion, lower pelvis left lower quadrant 2. Acute renal failure 3. Sigmoid diverticulosis 4. Left lower quadrant abdominal pain 5. Internal hernia pelvis 6. Ileus Expected PLAN: -IV Tylenol restarted for pain control -Continue antibiotics -TPN to be started for nutrition support -Keep patient n.p.o. for now -Abdominal xray ordered for evaluation of abdominal pain reports findings are suggestive of persistent but improving ileus Physician Life Skills Coach note has been reviewed by physician. Signing provider agrees with the documented findings, assessment, and plan of care. Objective - Vital Signs Vital signs: Vital Signs Temp 97.5 F L 08/10/23 11:29 Pulse 104 H 08/10/23 11:35 Resp 14 08/10/23 11:32 BP 127/77 08/10/23 11:29 Pulse Ox 95 08/10/23 08:03 FiO2 Intake & Output 08/09/23 08/10/23 08/10/23 18:59 06:59 18:59 Intake Total 0 20 Output Total 250 550 Balance -250 -530 Weight 77.111 kg Intake: IV 20 Invasive Line 5 10 Invasive Line 7 10 Oral 0 Output: Gastric Drainage 250 250 Urine 300 Other: Voiding Method Indwelling Catheter Indwelling Catheter Indwelling Catheter - Labs CBC & Chem 7: 08/10/23 09:28 08/10/23 09:28 Labs: Abnormal Lab Results - Last 24 Hours (Table) 08/09/23 08/09/23 08/09/23 Range/Units 12:10 12:10 17:47 RBC 3.75 L (4.30-5.90) m/uL Hgb 10.8 L (13.0-17.5) gm/dL Hct 33.9 L (39.0-53.0) % Neutrophils # 8.0 H (1.3-7.7) k/uL Lymphocytes # 0.6 L (1.0-4.8) k/uL Chloride 110 H (98-107) mmol/L Carbon Dioxide (22-30) mmol/L BUN 87 H (9-20) mg/dL Creatinine 5.53 H (0.66-1.25) mg/dL Glucose 116 H (74-99) mg/dL POC Glucose (mg/dL) 159 H (70-110) mg/dL Calcium 7.3 L (8.4-10.2) mg/dL Phosphorus (2.5-4.5) mg/dL Total Protein 4.3 L (6.3-8.2) g/dL Albumin 2.0 L (3.5-5.0) g/dL 08/09/23 08/10/23 08/10/23 Range/Units 23:50 06:12 09:28 RBC (4.30-5.90) m/uL Hgb (13.0-17.5) gm/dL Hct (39.0-53.0) % Neutrophils # (1.3-7.7) k/uL Lymphocytes # (1.0-4.8) k/uL Chloride (98-107) mmol/L Carbon Dioxide 20 L (22-30) mmol/L BUN 92 H (9-20) mg/dL Creatinine 5.60 H (0.66-1.25) mg/dL Glucose 123 H (74-99) mg/dL POC Glucose (mg/dL) 137 H 143 H (70-110) mg/dL Calcium 7.8 L (8.4-10.2) mg/dL Phosphorus 5.2 H (2.5-4.5) mg/dL Total Protein (6.3-8.2) g/dL Albumin (3.5-5.0) g/dL 08/10/23 Range/Units 09:28 RBC 3.68 L (4.30-5.90) m/uL Hgb 10.7 L (13.0-17.5) gm/dL Hct 33.8 L (39.0-53.0) % Neutrophils # 8.4 H (1.3-7.7) k/uL Lymphocytes # 0.8 L (1.0-4.8) k/uL Chloride (98-107) mmol/L Carbon Dioxide (22-30) mmol/L BUN (9-20) mg/dL Creatinine (0.66-1.25) mg/dL Glucose (74-99) mg/dL POC Glucose (mg/dL) (70-110) mg/dL Calcium (8.4-10.2) mg/dL Phosphorus (2.5-4.5) mg/dL Total Protein (6.3-8.2) g/dL Albumin (3.5-5.0) g/dL Microbiology - Last 24 Hours (Table) 08/08/23 20:10 Gram Stain - Preliminary Other - Other Wound Culture - Preliminary Gram Neg Bacilli Marybeth albicans Group D Enterococcus
--- NOTE | 2023-08-10 15:29 | P.PN ---
Subjective Progress Note Date: 08/10/23 Principal diagnosis: Reason for follow-up is fever likely abdominal source Patient is a 83-year-old male with a past medical history significant for coronary disease COPD dementia hypertension hyperlipidemia reflux presenting to the hospital for evaluation of abdominal pain bloating has been diagnosed with the distal small bowel obstruction developing a fever concerning for possible abdominal sepsis prompting this consultation.Patient is status post robotic assisted laparoscopic lysis of adhesion extensive and decompressive enterostomy that was completed on 08/08/2023 On today's evaluation that is 08/10/2023, patient has been afebrile, patient is breathing comfortably and is currently on room air, patient did pull up his NG bladder medical history nausea vomiting some abdominal discomfort no vomiting or any bowel movement reported by the sitter at the bedside. Patient white count normal at 10.5 creatinine is 5.60 culture currently growing gram-negative bacilli Marybeth and group D Enterococcus Objective - Vital Signs Vital signs: Vital Signs Temp 97.5 F L 08/10/23 11:29 Pulse 101 H 08/10/23 11:46 Resp 14 08/10/23 12:00 BP 127/77 08/10/23 11:29 Pulse Ox 93 L 08/10/23 12:00 FiO2 Intake & Output 08/09/23 08/10/23 08/10/23 18:59 06:59 18:59 Intake Total 0 20 Output Total 250 550 550 Balance -250 -530 -550 Weight 77.111 kg 77.111 kg Intake: IV 20 Invasive Line 5 10 Invasive Line 7 10 Oral 0 Output: Gastric Drainage 250 250 Urine 300 550 Other: Voiding Method Indwelling Catheter Indwelling Catheter Indwelling Catheter - Exam GENERAL DESCRIPTION: An elderly male up in the chair in no distress RESPIRATORY SYSTEM: Unlabored breathing , decreased breath sounds at bases HEART: S1 S2 regular rate and rhythm , ABDOMEN: Soft , no tenderness EXTREMITIES: No edema feet - Labs CBC & Chem 7: 08/10/23 09:28 08/10/23 09:28 Labs: Abnormal Lab Results - Last 24 Hours (Table) 08/09/23 08/09/23 08/10/23 Range/Units 17:47 23:50 06:12 RBC (4.30-5.90) m/uL Hgb (13.0-17.5) gm/dL Hct (39.0-53.0) % Neutrophils # (1.3-7.7) k/uL Lymphocytes # (1.0-4.8) k/uL Carbon Dioxide (22-30) mmol/L BUN (9-20) mg/dL Creatinine (0.66-1.25) mg/dL Glucose (74-99) mg/dL POC Glucose (mg/dL) 159 H 137 H 143 H (70-110) mg/dL Calcium (8.4-10.2) mg/dL Phosphorus (2.5-4.5) mg/dL 08/10/23 08/10/23 08/10/23 Range/Units 09:28 09:28 11:55 RBC 3.68 L (4.30-5.90) m/uL Hgb 10.7 L (13.0-17.5) gm/dL Hct 33.8 L (39.0-53.0) % Neutrophils # 8.4 H (1.3-7.7) k/uL Lymphocytes # 0.8 L (1.0-4.8) k/uL Carbon Dioxide 20 L (22-30) mmol/L BUN 92 H (9-20) mg/dL Creatinine 5.60 H (0.66-1.25) mg/dL Glucose 123 H (74-99) mg/dL POC Glucose (mg/dL) 178 H (70-110) mg/dL Calcium 7.8 L (8.4-10.2) mg/dL Phosphorus 5.2 H (2.5-4.5) mg/dL Microbiology - Last 24 Hours (Table) 08/08/23 20:10 Gram Stain - Preliminary Other - Other Wound Culture - Preliminary Gram Neg Bacilli Marybeth albicans Group D Enterococcus Assessment and Plan (1) Fever Current Visit: Yes Status: Acute Code(s): R50.9 - FEVER, UNSPECIFIED SNOMED Code(s): 757800259 (2) Leukocytosis Current Visit: Yes Status: Acute Code(s): D72.829 - ELEVATED WHITE BLOOD CELL COUNT, UNSPECIFIED SNOMED Code(s): 592869180 (3) Small bowel obstruction Current Visit: Yes Status: Acute Code(s): K56.609 - UNSP INTESTNL OBST, UNSP TO PARTIAL VERSUS COMPLETE OBST SNOMED Code(s): 719886059 (4) Peritonitis Current Visit: Yes Status: Acute Code(s): K65.9 - PERITONITIS, UNSPECIFIED SNOMED Code(s): 59251302 Plan: 1patient with low-grade fever elevated white count and this patient presented to hospital with abdominal pain and bloating and has been diagnosed with the small bowel obstruction likely etiology for his low-grade fever and elevated white count, the patient is status post laparoscopic lysis of adhesion and enterostomy abdominal cultures obtained which are currently growing Enterococcus and gram-negative bacilli and Marybeth 2-we will continue with the Zosyn we will add Eraxis for Marybeth cannot use fluconazole because of his allergies and monitor clinical course closely Dictation was produced using [employer] dictation software. please excuse any grammatical, word or spelling errors. Time with Patient: Less than 30
--- NOTE | 2023-08-10 16:20 | P.GSCN ---
History of Present Illness History of present illness: 83-year-old gentleman consulted for placement of dialysis catheter. Patient creatinine is 5.5.Pa 83-year-old gentleman consulted for placement of dialysis cathettient creatinine is 5.5.patient has history of coronary disease hypertension Patient has history of coronary disease hypertension metabolic acidosis metabolic acidosi patient is on nasal oxygenShe is on nasal oxygen Chest is clearChest is clear few crackles the lung bases few crackles the lung bases Abdomen Abdomen no peritoneal signs noted no FemoralThe graft femoral are 1+ bilateral are 1+ bilateral Plan is placement dialysis catheter edema plan is placement of dialysis catheter skin complication discussed as can complication discussed Past Medical History Past Medical History: Coronary Artery Disease (CAD), COPD, Dementia, GERD/Reflux, Hyperlipidemia, Hypertension Additional Past Medical History / Comment(s): dysphagia, states some memory loss History of Any Multi-Drug Resistant Organisms: None Reported Past Surgical History: Cholecystectomy, Heart Catheterization With Stent Additional Past Surgical History / Comment(s): corbin cataracts, EGD Past Anesthesia/Blood Transfusion Reactions: No Reported Reaction Date of Last Stent Placement:: unknown Past Psychological History: No Psychological Hx Reported Smoking Status: Never smoker Past Alcohol Use History: None Reported Past Drug Use History: None Reported - Past Family History Mother Family Medical History: Cancer Father Family Medical History: Cancer Medications and Allergies Home Medications Medication Instructions Recorded Confirmed Type Metoprolol Tartrate 25 mg PO BID 05/27/17 08/01/23 History Montelukast [Singulair] 10 mg PO DAILY 05/27/17 08/01/23 History Theophylline 12 Hour [Silvio-Dur] 300 mg PO BID 05/27/17 08/01/23 History Atorvastatin [Lipitor] 80 mg PO HS 11/22/19 08/01/23 History Famotidine [Pepcid] 20 mg PO BID 11/22/19 08/01/23 History Levothyroxine Sodium [Synthroid] 50 mcg PO DAILY 11/22/19 08/01/23 History Donepezil [Aricept] 10 mg PO HS 03/15/23 08/01/23 History Losartan [Cozaar] 50 mg PO DAILY 03/15/23 08/01/23 History Memantine [Namenda] 10 mg PO BID 03/15/23 08/01/23 History Budesonide-Formot 160-4.5 Mcg 2 puff INHALATION RT-BID #1 each 03/19/23 08/01/23 Rx [Symbicort 160-4.5 Mcg Inhaler] Ipratropium-Albuterol Nebulize 3 ml INHALATION RT-QID #120 each 03/19/23 08/01/23 Rx [Duoneb 0.5 mg-3 mg/3 ml Soln] Albuterol Sulfate [Albuterol 2 puff INHALATION RT-QID PRN 04/08/23 08/01/23 History Sulfate Hfa] Aspirin EC [Ecotrin Low Dose] 81 mg PO DAILY 08/01/23 08/01/23 History Triamcinolone 0.1% Cream [Kenalog 1 applicatio TOPICAL BID 08/01/23 08/01/23 History 0.1% Cream] Allergies Allergy/AdvReac Type Severity Reaction Status Date / Time ciprofloxacin [From Cipro] Allergy Rash/Hives Verified 08/01/23 11:53 levofloxacin [From Levaquin] Allergy Unknown Verified 08/01/23 11:53 rofecoxib Allergy Unknown Verified 08/01/23 11:53 sulfamethoxazole Allergy Swelling Verified 08/01/23 11:53 [From Bactrim] trimethoprim [From Bactrim] Allergy Swelling Verified 08/01/23 11:53 fluconazole [From Diflucan] AdvReac DIzziness Verified 08/01/23 11:53 & Giddiness Surgical - Exam Vital Signs Temp Pulse Resp BP Pulse Ox 98.2 F 69 18 163/48 100 08/01/23 05:18 08/01/23 05:18 08/01/23 05:18 08/01/23 05:18 08/01/23 05:18 Results - Labs 08/10/23 09:28 08/10/23 09:28 Abnormal Lab Results - Last 24 Hours (Table) 08/09/23 08/09/23 08/10/23 Range/Units 17:47 23:50 06:12 RBC (4.30-5.90) m/uL Hgb (13.0-17.5) gm/dL Hct (39.0-53.0) % Neutrophils # (1.3-7.7) k/uL Lymphocytes # (1.0-4.8) k/uL Carbon Dioxide (22-30) mmol/L BUN (9-20) mg/dL Creatinine (0.66-1.25) mg/dL Glucose (74-99) mg/dL POC Glucose (mg/dL) 159 H 137 H 143 H (70-110) mg/dL Calcium (8.4-10.2) mg/dL Phosphorus (2.5-4.5) mg/dL 08/10/23 08/10/23 08/10/23 Range/Units 09:28 09:28 11:55 RBC 3.68 L (4.30-5.90) m/uL Hgb 10.7 L (13.0-17.5) gm/dL Hct 33.8 L (39.0-53.0) % Neutrophils # 8.4 H (1.3-7.7) k/uL Lymphocytes # 0.8 L (1.0-4.8) k/uL Carbon Dioxide 20 L (22-30) mmol/L BUN 92 H (9-20) mg/dL Creatinine 5.60 H (0.66-1.25) mg/dL Glucose 123 H (74-99) mg/dL POC Glucose (mg/dL) 178 H (70-110) mg/dL Calcium 7.8 L (8.4-10.2) mg/dL Phosphorus 5.2 H (2.5-4.5) mg/dL Microbiology - Last 24 Hours (Table) 08/08/23 20:10 Gram Stain - Preliminary Other - Other Wound Culture - Preliminary Gram Neg Bacilli Marybeth albicans Group D Enterococcus Diabetes panel 08/10/23 Range/Units 09:28 Sodium 140 (137-145) mmol/L Potassium 3.8 (3.5-5.1) mmol/L Chloride 107 (98-107) mmol/L Carbon Dioxide 20 L (22-30) mmol/L BUN 92 H (9-20) mg/dL Creatinine 5.60 H (0.66-1.25) mg/dL Glucose 123 H (74-99) mg/dL Calcium 7.8 L (8.4-10.2) mg/dL Calcium panel 08/10/23 08/10/23 Range/Units 09: 09:28 Calcium 7.8 L (8.4-10.2) mg/dL Ionized Calcium Dee 4.6 (4.5-5.3) mg/dL Phosphorus 5.2 H (2.5-4.5) mg/dL Pituitary panel 08/10/23 Range/Units 09:28 Sodium 140 (137-145) mmol/L Potassium 3.8 (3.5-5.1) mmol/L Chloride 107 (98-107) mmol/L Carbon Dioxide 20 L (22-30) mmol/L BUN 92 H (9-20) mg/dL Creatinine 5.60 H (0.66-1.25) mg/dL Glucose 123 H (74-99) mg/dL Calcium 7.8 L (8.4-10.2) mg/dL Adrenal panel 08/10/23 Range/Units 09:28 Sodium 140 (137-145) mmol/L Potassium 3.8 (3.5-5.1) mmol/L Chloride 107 (98-107) mmol/L Carbon Dioxide 20 L (22-30) mmol/L BUN 92 H (9-20) mg/dL Creatinine 5.60 H (0.66-1.25) mg/dL Glucose 123 H (74-99) mg/dL Calcium 7.8 L (8.4-10.2) mg/dL
[2023-08-10] MEDS: MIDAZOLAM 2 MG/2 ML VIAL IVP ONE (17:19)
[2023-08-10] MEDS: LIDOCAINE 1% INJ 10MG/ML (30 ML VIAL-PF) SQ ONE (17:20)
[2023-08-10] MEDS: HEPARIN SODIUM 1,000 UN/ML (10ML VL) MISCELLANE ONE (17:41)
[2023-08-10] MEDS: SODIUM CHLORIDE 0.9% 500 ML 500 ML IV ONE (17:42)
[2023-08-10 17:54] LABS: Glucose,Whole Blood 131 mg/dL (70-110)
--- NOTE | 2023-08-10 18:02 | IR ---
EXAMINATION TYPE: IR cvc insert central tunneled Intraoperative/procedural fluoroscopic services were provided. CLINICAL INDICATION:Male, 83 years old with history of hemodialysis catheter insertion. 1.3min fluoro , [id number]; , [facility] Total fluoroscopy time is 1.3 min. DAP: 263.64 uGym2 Please see the operative/procedural note for further details.
[2023-08-10] MEDS: ANIDULAFUNGIN 200 MG in SODIUM CHLORIDE 0.9% 200 ML IVPB ONE (18:40)
[2023-08-10] MEDS: MVI, ADULT NO.4 WITH VIT K 10 ML, TRACE (CONC-1ML/DOSE) 1 ML, SODIUM ACETATE 34 MEQ, PO... IV SCH (18:41)
--- NOTE | 2023-08-10 19:45 | XR ---
EXAMINATION TYPE: XR chest 1V confirm line [facility] DATE OF EXAM: 08/10/2023 6:30 PM CLINICAL INDICATION:Male, 83 years old with history of hemodialysis catheter insertion.; [facility] COMPARISON: Chest radiographs from 08/04/2023. TECHNIQUE: XR chest 1V confirm line [facility] Frontal view of the chest. FINDINGS: Lungs/Pleura: Streaky atelectasis with possible pleural effusions. There is no evidence of pleural ef fusion, focal consolidation, or pneumothorax. Pulmonary vascularity: Unremarkable. Heart/mediastinum: Cardiomediastinal silhouette is unremarkable. Musculoskeletal: No acute osseous pathology. Other findings: None Lines/Tubes: Right internal jugular central venous catheter with distal tip at the cavoatrial junction. Right-sided PICC line with distal tip at the cavoatrial junction. IMPRESSION: 1. Right PICC with tip in the superior vena cava. 2. Right central venous catheter in with tip terminating in the superior vena cava. 3. Mild streaky basilar atelectasis possible pleural fusions.
[2023-08-10 20:07] LABS: Hepatitis B Surface AB- Quant 3.5 mIU/mL
[2023-08-10 21:49] LABS: Hepatitis B Surface Antigen Nonreactive (Nonreactive)
[2023-08-10] MEDS: SIMETHICONE 40 MG/0.6 ML DROPS 2,000 MG/30 ML BOTTLE PO SCH (22:07)
--- NOTE | 2023-08-10 22:51 | OP ---
OPERATIVE REPORT DATE OF SERVICE : PREOPERATIVE DIAGNOSIS: Acute chronic renal failure. POSTOPERATIVE DIAGNOSIS: Acute chronic renal failure. PROCEDURE PERFORMED: Ultrasound-guided dialysis catheter placed via right jugular approach. ANESTHESIA: 1% lidocaine for the neck and chest area. DESCRIPTION OF PROCEDURE: Ultrasound-guided micropuncture into the right jugular vein, micropuncture guidewire was passed and 4-Rwandan dilator advanced on top of the guidewire. Then we created a tunnel. Through the tunnel, we brought a 19-cm dialysis catheter. We used a regular guidewire which was parked at the superior vena cava and then we placed a sheath on the top of the guidewire. Through the sheath, we introduced the dialysis catheter. Tip of the catheter in superior vena cavoatrial junction, flushed with heparin saline and hep- locked, secured with 3-0 nylon. The patient tolerated the procedure well. DC / JANUSZN: [id number] /
[2023-08-11 00:25] LABS: Glucose,Whole Blood 126 mg/dL (70-110)
[2023-08-11] MEDS: LORazepam 2 MG/ML INJ IV PRN (02:10)
[2023-08-11 06:01] LABS: Glucose,Whole Blood 106 mg/dL (70-110)
[2023-08-11] MEDS: ANIDULAFUNGIN 100 MG in SODIUM CHLORIDE 0.9% 100 ML IVPB SCH (08:17)
--- NOTE | 2023-08-11 11:36 | P.PN ---
Subjective Progress Note Date: 08/11/23 Principal diagnosis: Small bowel obstruction. This is a 83-year-old male patient with a known history of coronary artery disease with previous stent placement, dementia, hypertension, hyperlipidemia, hypothyroidism, non-smoker who presented here to the emergency room on 08/01/2023 with abdominal pain. He had been followed by surgical services. He did have a nasogastric tube which had approximately 2100 cc output once put in. However the patient inadvertently pulled it out last night. Today he had developed increased abdominal discomfort, tachycardia and shortness of breath. We were consulted for possible transfer to the ICU. He is seen today on the regular medical floor. He is awake and alert. He denies any pain at rest. He is tender to palpation. He is tachycardic, sinus. Currently afebrile. Continue O2 saturations in the mid 90s on 3 L/min per nasal cannula. Blood pressure stable. Blood cultures reveal no growth. White count 8.5. Hemoglobin 12.6. Platelets 373. Sodium 139. Potassium 4.6. Bicarb 14. BUN 34. Creatinine 3.11. Glucose 88. Amylase 73. Lipase 49. CT scan of the abdomen today revealed bowel obstruction pattern. Small amount of free fluid. Chest x-ray reveals no acute cardiopulmonary process. A nasogastric tube has been reinserted and in good position. He is currently on Zosyn. Patient was seen and examined today on 08/05/2023, patient is doing much better today compared to the last 2 days, less abdominal pain, no nausea no vomiting, continues to have nasogastric tube in place.WBC count is 9.9 hemoglobin 11.3 basic metabolic profile is normal however his renal functioning is worse with BUN up to 69 creatinine 5.60, and that is being addressed by nephrology on the case. His acute kidney injury is felt to be related to hemodynamic ATN, no hydronephrosis on CT of the abdomen, patient does have history of chronic kidney disease stage IIIb. Patient is on Cardizem drip now for atrial tachycardia. And cardiology is following Reevaluate today on 08/06/23, patient pulled his nasogastric tube yesterday, continues to have abdominal distention and abdominal pain. Apparently multiple attempts by nurses to place the nasogastric tube were unsuccessful. Surgery is to address the nasogastric tube placement and or exploratory laparotomy on this patient to relieve his bowel obstruction.WBC count today is 8.4 hemoglobin 10.4, basic metabolic profile is normal renal profile is worsening with a BUN of 85 creatinine 6.08 and his renal profile is being addressed by nephrology on the case Patient was reevaluated today on 08/07/2023, continues to have abdominal pain, continues to have small bowel obstruction, and now he is developing worsening renal disease. From the looks of it, patient may be heading towards dialysis. Patient was seen by Dr. Truong today, and I believe he is recommending exploratory laparotomy after he is seen by Dr. Goodman tomorrow. Continues to have decent urine output, 600 cc in the last 8 hours. Could not have a nasogastric tube placed back, patient is getting in Progress note dated August 08, 2023. 83-year-old male seen in room 378. The patient is currently on 2 L of oxygen. The patient is getting dextrose with half-normal saline at 100 cc an hour. He does have a significantly tender abdomen, anytime he burps, or coughs. Also, he is tender on palpation. Current labs include a white count 9.5, hemoglobin 11.4, hematocrit 36, and a platelet count of 343,000. Sodium 143, potassium 4.2, chlorides 107, CO2 27, BUN 93, creatinine 5.62. Calcium is 8, with a phosphorus of 5.4. Glucose is 97. Blood cultures are negative. Progress note dated August 09, 2023. 83-year-old male seen today in room 378. The patient is currently on 3 L of oxygen. NG tube remains in place. He is getting D5 with half-normal saline at 100 cc an hour. The patient has significant abdominal pain on palpation of the abdomen. Labs today include a white count 9.3, hemoglobin 10.8, hematocrit 33.9, and a platelet count of 355,000. Sodium 140, potassium 4.4, chlorides 110, CO2 22, BUN 87, and creatinine 5.53. Glucose is 116. Albumin is 2. All microbiologic sampling is thus far negative. Progress note dated August 10, 2023. 83-year-old male seen again in room 378. The patient again pulled out his NG tube. The patient is on room air. The patient is getting TPN at 30 cc an hour. The patient still has significant abdominal discomfort on palpation. I count 10.5, hemoglobin 10.7, hematocrit 33.8, and platelet count is 384,000. Sodium 140, potassium 3.8, chlorides 107, CO2 20, anion gap 13, BUN 92, creatinine 5.60. Glucose is 123. Magnesium 1.9. Phosphorus 5.2. Progress note dated August 11, 2023. 83-year-old male seen today in room 377. Currently, the patient is receiving hemodialysis. He is on room air. The patient is a DO NOT RESUSCITATE patient. He is getting TPN at 48 cc an hour. He continues on Eraxis, and Zosyn. No new laboratory data today as yet, other than a glucose of 106. Chest x-ray from yesterday shows some mild streaky basilar atelectasis. Objective - Vital Signs Vital signs: Vital Signs Temp 98.2 F 08/11/23 08:10 Pulse 100 08/11/23 11:23 Resp 18 08/11/23 11:23 BP 146/75 08/11/23 08:10 Pulse Ox 100 08/11/23 08:10 FiO2 Intake & Output 08/10/23 08/11/23 08/11/23 18:59 06:59 18:59 Intake Total 50 500 Output Total 900 1300 350 Balance -850 -800 -350 Weight 77.111 kg Intake: IV 50 Hemodialysis 500 Output: Urine 900 800 350 Hemodialysis 500 Other: Voiding Method Indwelling Catheter Indwelling Catheter Indwelling Catheter - Exam No acute distress, oriented 3. The patient is currently on room air. No respiratory difficulty. HEENT examination is grossly unremarkable. Mucous membranes are moist. No oral lesions. Neck supple. Full range of motion. No adenopathy thyromegaly or neck vein distention. Cardiovascular examination reveals regular rhythm rate. S1-S2 normal. No S3 or S4. No discernible murmur noted. Heart rate is 98 bpm. Lungs reveal clear breath sounds. Breath sounds are equal bilaterally. No a dventitious lung sounds including wheezes rhonchi or crackles. Room air saturation is 100 %. Abdomen is tender on palpation. No bowel sounds. Extremities are intact. No cyanosis clubbing or edema. Skin is without rash or lesion. Neurologic examination is brief but nonfocal. - Labs CBC & Chem 7: 08/10/23 09:28 08/10/23 09:28 Labs: Abnormal Lab Results - Last 24 Hours (Table) 08/10/23 08/10/23 08/11/23 Range/Units 11:55 17:53 00:23 POC Glucose (mg/dL) 178 H 131 H 126 H (70-110) mg/dL Microbiology - Last 24 Hours (Table) 08/08/23 20:10 Gram Stain - Final Other - Other Wound Culture - Final Enterobacter aerogenes Marybeth albicans Enterococcus faecalis Assessment and Plan Assessment: Abdominal pain, secondary to bowel obstruction. Acute hypoxemic respiratory failure, secondary to COPD. Patient a lifelong non-smoker. History of coronary artery disease, with previous stent placement. History of hypertension. History of hyperlipidemia. History of hypothyroidism. History of dementia. Plan: Plan dated August 08, 2023. The patient is stable from the pulmonary status. Labs, x-rays, medications are reviewed. We will continue to follow, make recommendations along the way. The patient in the end, may need an exploratory laparotomy, to determine, his intra- abdominal pathology. Nephrology is addressing his worsening renal pattern. Additional recommendations and suggestions are forthcoming. We will continue to follow. Plan dated August 09, 2023. The patient now has an NG tube in place. He is getting oxygen by nasal cannula at 3 L. In addition, he is getting dextrose with half-normal saline at 100 cc an hour. The patient still has significant abdominal tenderness on palpation. Labs, x-rays, and medications are all reviewed. We will continue to follow make recommendations along the way. Prognosis is certainly guarded. No plans for surgery at this time. Plan dated August 10, 2023. The patient again pulled out his NG tube. Currently, he is on room air. The patient is receiving TPN at 30 cc an hour. Labs, x-rays, medications are reviewed. The patient still has significant abdominal tenderness. We will continue to follow make recommendations. Prognosis is guarded. The patient is a DO NOT RESUSCITATE patient. And dated August 11, 2023. The patient is currently on TPN at 48 cc an hour. The patient is currently receiving hemodialysis. He is on room air. The patient is a DO NOT RESUSCITATE patient. Labs, x-rays, and medications are reviewed. He continues on Eraxis, and Zosyn, as per infectious diseases. We will continue to follow, make recommendations. Prognosis is certainly very guarded. Time with Patient: Less than 30
[2023-08-11 12:05] LABS: Glucose,Whole Blood 165 mg/dL (70-110)
--- NOTE | 2023-08-11 12:30 | P.PN ---
Subjective patient is seen for follow-up for acute kidney injury. patient was started on hemodialysis on 08/10/2023 due to persistent encephalopathy and no further improvement in renal function. Patient is seen on hemodialysis today. Tolerating his treatment well. Good urine output noted. 1700 mL for 24 hours. maintained on IV fluids. Sitter present at bedside. Patient remains confused but appears more awake today. Objective - Vital Signs Vital signs: Vital Signs Temp 98.2 F 08/11/23 08:10 Pulse 100 08/11/23 11:33 Resp 18 08/11/23 11:33 BP 146/75 08/11/23 08:10 Pulse Ox 100 08/11/23 08:10 FiO2 Intake & Output 08/10/23 08/11/23 08/11/23 18:59 06:59 18:59 Intake Total 50 500 Output Total 900 1300 350 Balance -850 -800 -350 Weight 77.111 kg Intake: IV 50 Hemodialysis 500 Output: Urine 900 800 350 Hemodialysis 500 Other: Voiding Method Indwelling Catheter Indwelling Catheter Indwelling Catheter # Bowel Movements 1 - Exam patient is awake and able to onset simple questions. He remains confused. 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 - Labs CBC & Chem 7: 08/10/23 09:28 08/10/23 09:28 Labs: Abnormal Lab Results - Last 24 Hours (Table) 08/10/23 08/11/23 08/11/23 Range/Units 17:53 00:23 12:03 POC Glucose (mg/dL) 131 H 126 H 165 H (70-110) mg/dL Microbiology - Last 24 Hours (Table) 08/08/23 20:10 Gram Stain - Final Other - Other Wound Culture - Final Enterobacter aerogenes Marybeth albicans Enterococcus faecalis Assessment and Plan Assessment: 1. Acute kidney injury secondary to ATN. nonoliguric. No hydronephrosis noted on CAT scan. UA shows 2+ protein moderate blood and WBCs 54, urine eosinophils negative,all serologies are negative as well. Renal function did not improve further with IV hydration and therefore patient was started on hemodialysis on 08/10/2023. 2. Chronic kidney disease stage IIIb with baseline creatinine 1.3-1.5 secondary to nephrosclerosis. 3. Partial small bowel obstruction. status post robotic-assisted laparoscopic lysis of adhesions and decompressive enterostomy on 08/08/2023. 4. Metabolic acidosis secondary to acute kidney injury and IV fluids. 5. Atrial tachycardia, status post Cardizem drip Plan: continue IV fluids repeat hemodialysis in a.m. No UF
--- NOTE | 2023-08-11 13:51 | P.PN ---
Subjective Progress Note Date: 08/11/23 CHIEF COMPLAINT: Abdominal pain HISTORY OF PRESENT ILLNESS: Patient with small bowel obstruction status post robotic assisted laparoscopic lysis of adhesions and decompressive enterostomy. Patient currently receiving TPN for nutrition support. Patient has a bedside sitter at this time. He is getting his second treatment of hemodialysis today. Apparently last night and again this morning he had abdominal pain. He did receive some gas drops this morning and since then has had more flatus. He appe ars more comfortable. No nausea or vomiting. No bowel movement. He has been having belching. Abdominal x-ray suggestive of persistent but improving ileus. Infectious disease did add Eraxis. PHYSICAL EXAM: VITAL SIGNS: Reviewed GENERAL: Well-developed in no acute distress. HEENT: No sclera icterus. Extraocular movements grossly intact. Moist buccal mucosa. Head is atraumatic, normocephalic. Hears conversational speech. No nasal drainage. NECK: Supple without lymphadenopathy. CHEST: Non-labored respirations and equal bilateral excursions. CARDIOVASCULAR: Palpable 2+ radial pulses. ABDOMEN: Distended. Mild tenderness palpation of lower abdomen. MUSCULOSKELETAL: No clubbing or cyanosis. NEUROLOGIC: No focal or lateralizing signs. Cranial nerves II through XII grossly intact. PSYCH: Appropriate affect. Alert and oriented to person, place and time. SKIN: Well perfused. Good skin turgor. ASSESSMENT: 1. Small bowel obstruction due to adhesion, lower pelvis left lower quadrant 2. Acute renal failure 3. Sigmoid diverticulosis 4. Left lower quadrant abdominal pain 5. Internal hernia pelvis 6. Ileus Expected PLAN: -Keep patient n.p.o. -Continue IV Tylenol -Antibiotics per ID service -TPN to be started for nutrition support -Mylicon gas drops added Physician Volunteer Recruitment Coordinator note has been reviewed by physician. Signing provider agrees with the documented findings, assessment, and plan of care. Please see additional documentation below CHIEF COMPLAINT: Abdominal pain HISTORY OF PRESENT ILLNESS: The patient is a 83-year-old male status post robotic lysis of adhesions for bowel obstruction including and reduction of internal hernia. Last night, patient had increased abdominal distention abdominal pain. This afternoon, patient is resting comfortably. He denies any significant abdominal pain. Patient is passing increased flatus. Family member at bedside. Patient reports he is ready to have a sandwich. He has sitter at bedside. He is status post placement of hemodialysis catheter. Abdominal pain has improved after start of simethicone gas drops. ROS: No fevers or chills. No new chest pain. PHYSICAL EXAM: VITAL SIGNS: Reviewed CONSTITUTIONAL: Well developed and in no acute distress. EYES: Conjuctivae without sclera icterus. Extraocular movements grossly intact. HEAD, EARS, NOSE, THROAT: Moist buccal mucosa. Head is atraumatic, normocephalic. Hears conversational speech. RESPIRATORY: Non-labored respirations and equal bilateral excursions. CARDIOVASCULAR: Palpable 2+ radial pulses. ABDOMEN: Dressing intact. No peritonitis. MUSCULOSKELETAL: No gross deformity of the lower extremities noted. No clubbing. No cyanosis. SKIN: Good skin turgor. Well perfused. NEUROLOGIC: Cranial nerves II through XII grossly intact. No focal or lateralizing signs. PSYCH: Alert and oriented to person. CLINICAL LABS: Reviewed. WBC normal. Creatinine remains over 5.0. MICRO: Cultures obtained from small bowel fluid demonstrates Marybeth albicans, Enterococcus and Enterobacter with multiple drug resistance. STUDIES: Abdominal x-ray independently reviewed demonstrated multiple gaseous small bowel without free air. This is my independent or potation. ASSESSMENT: 1. Small bowel obstruction due to adhesions with abdominal pain 2. Supraventricular tachycardia 3. Acute onset renal failure PLAN: 1. As patient reports moderate improvement of abdominal pain, may start low fiber diet such as a sandwich 2. Antibiotic management per infectious disease for small bowel content. Patient did have contamination from small bowel contents during surgery for which antibiotics is indicated. 3. Recommend physical therapy and Occupational Therapy for disposition to rehab versus ECF for home 4. Patient is now receiving dialysis management per nephrology 5. Patient has responded well to simethicone and continue simethicone drops. Objective - Vital Signs Vital signs: Vital Signs Temp 98.2 F 08/11/23 08:10 Pulse 122 H 08/11/23 12:15 Resp 18 08/11/23 12:15 BP 129/85 08/11/23 12:15 Pulse Ox 95 08/11/23 12:15 FiO2 Intake & Output 08/10/23 08/11/23 08/11/23 18:59 06:59 18:59 Intake Total 50 500 Output Total 900 1300 350 Balance -850 -800 -350 Weight 77.111 kg Intake: IV 50 Hemodialysis 500 Output: Urine 900 800 350 Hemodialysis 500 Other: Voiding Method Indwelling Catheter Indwelling Catheter Indwelling Catheter # Bowel Movements 1 - Labs CBC & Chem 7: 08/10/23 09:28 08/11/23 14:54 Labs: Abnormal Lab Results - Last 24 Hours (Table) 08/10/23 08/11/23 08/11/23 Range/Units 17:53 00:23 12:03 POC Glucose (mg/dL) 131 H 126 H 165 H (70-110) mg/dL Microbiology - Last 24 Hours (Table) 08/08/23 20:10 Gram Stain - Final Other - Other Wound Culture - Final Enterobacter aerogenes Marybeth albicans Enterococcus faecalis
--- NOTE | 2023-08-11 14:41 | P.PN ---
Subjective Progress Note Date: 08/11/23 Progress note Date of service: 08/11/[address] Griffin Patient seen [id number] and he had underlying confusion but he is still recognizing me and he had bedside clinical nursing coordinator sitter because of his agitation Patient was conscious able to answer few questions Event: Patient started on dialysis after the central venous catheter for hemodialysis was placed by Dr. Shannon vascular surgeon, patient started also today a second dialysis was less than 3-hour due to his persistent renal failure with no improvement with waiting and observation, still oliguric and no bowel movement, ileus postoperative. Status post assisted robotic laparoscopic lysis of adhesion per Dr. Pinzon. Dialysis initiated by Dr. Cervantes nephrology. Neuro Laboratory was not done today but will be done tomorrow and for evaluation of how the renal function improving may need few more of the hemodialysis until patient open up his renal function. Patient on TPN and Intralipid for nutritional support designed by Dr. Pinzon the general surgeon. Currently monitored his blood sugar by CBG and covered to scale if hyperglycemia occurred. On exam VS: His vital sign indicating that Temperature 98.2 F oral, heart rate ranging 100-122/min., Respiratory rate 16- 18/min, blood pressure 129/85 and oxygen saturation 95% on room air.. Neuro Patient is conscious alert with the underlying dementia and currently with his renal failure encephalopathy considered and agitation, treated with Ativan IV 0.5 mg every 4 hours as needed. Head was normocephalic atraumatic pupil was equal reactive and he had facial asymmetry is chronic the oropharynx was natural teeth Neck was supple no JVD no thyromegaly no lymphadenopathy. Chest he has history of COPD and asthma basilar atelectasis. Heart: He has underlying sinus tachycardia intermittently and blood pressure is stable Abdomen normal bowel sounds, tympanitic on percussion, was discomfort, still ileus present normal BMs no flatus so far. Extremities no edema, positive pulses. Patient had Dow catheter for continuing monitoring his INR with the surrounding penile edema He has a right bilumen dialysis catheter and he had a PICC line for IV infusion and antibiotic. Assessment: 1. Status post small bowel obstruction, and robotic assisted laparoscopic lysis of adhesion in the abdomen and lower abdomen by Dr. Pinzon 2. Status postoperative ileus with tympanic membrane and still tenderness and n.p.o. 3. Acute kidney injury, acute renal failure probably secondary to ATN, currently on hemodialysis after the insertion of the dialysis cath catheter in the right subclavian by Dr. Roddy Shannon. 4. Prolonged starvation and nutritional deficit 5. COPD with atelectasis followed by Dr. Bautista pulmonary and critical care 6. Cardiac arrhythmia with sinus tachycardia followed by cardiology associated. 7. Suspicious of sepsis followed by Dr. Simmons infectious disease Plan: No change in the treatment will continue the plan by nephrology Dr. Cervantes with hemodialysis. Continue monitoring patient Surgically Dr. Pinzon and her PAs has been following surgically the patient Pulmonary and critical care still continuing following the patient Objective - Vital Signs Vital signs: Vital Signs Temp 98.2 F 08/11/23 08:10 Pulse 122 H 08/11/23 12:15 Resp 18 08/11/23 12:15 BP 129/85 08/11/23 12:15 Pulse Ox 95 08/11/23 12:15 FiO2 Intake & Output 08/10/23 08/11/23 08/11/23 18:59 06:59 18:59 Intake Total 50 500 Output Total 900 1300 350 Balance -850 -800 -350 Weight 77.111 kg Intake: IV 50 Hemodialysis 500 Output: Urine 900 800 350 Hemodialysis 500 Other: Voiding Method Indwelling Catheter Indwelling Catheter Indwelling Catheter # Bowel Movements 1 - Labs CBC & Chem 7: 08/10/23 09:28 08/10/23 09:28 Labs: Abnormal Lab Results - Last 24 Hours (Table) 08/10/23 08/11/23 08/11/23 Range/Units 17:53 00:23 12:03 POC Glucose (mg/dL) 131 H 126 H 165 H (70-110) mg/dL Microbiology - Last 24 Hours (Table) 08/08/23 20:10 Gram Stain - Final Other - Other Wound Culture - Final Enterobacter aerogenes Marybeth albicans Enterococcus faecalis
--- NOTE | 2023-08-11 15:12 | P.PN ---
Subjective Progress Note Date: 08/11/23 Principal diagnosis: Reason for follow-up is fever likely abdominal source Patient is a 83-year-old male with a past medical history significant for coronary disease COPD dementia hypertension hyperlipidemia reflux presenting to the hospital for evaluation of abdominal pain bloating has been diagnosed with the distal small bowel obstruction developing a fever concerning for possible abdominal sepsis prompting this consultation.Patient is status post robotic assisted laparoscopic lysis of adhesion extensive and decompressive enterostomy that was completed on 08/08/2023 On today's evaluation that is 08/11/2023,the patient denies any fever or any chills, patient is breathing comfortably on room air, the patient denies chest pain shortness of breath and no significant cough, patient abdominal pain has decreased no nausea or vomiting and did have a small bowel movement per the nursing staff. No new labs has been repeated today abdominal cultures with Enterobacter that is intermediate to Zosyn as well as ertapenem sensitive to cefepime along with Enterococcus Objective - Vital Signs Vital signs: Vital Signs Temp 98.2 F 08/11/23 08:10 Pulse 100 08/11/23 15:07 Resp 18 08/11/23 15:07 BP 129/85 08/11/23 12:15 Pulse Ox 95 08/11/23 12:15 FiO2 Intake & Output 08/10/23 08/11/23 08/11/23 18:59 06:59 18:59 Intake Total 50 500 Output Total 900 1300 350 Balance -850 -800 -350 Weight 77.111 kg Intake: IV 50 Hemodialysis 500 Output: Urine 900 800 350 Hemodialysis 500 Other: Voiding Method Indwelling Catheter Indwelling Catheter Indwelling Catheter # Bowel Movements 1 - Exam GENERAL DESCRIPTION: An elderly male up in the chair in no distress RESPIRATORY SYSTEM: Unlabored breathing , decreased breath sounds at bases HEART: S1 S2 regular rate and rhythm , ABDOMEN: Soft , no tenderness EXTREMITIES: No edema feet - Labs CBC & Chem 7: 08/10/23 09:28 08/10/23 09:28 Labs: Abnormal Lab Results - Last 24 Hours (Table) 08/10/23 08/11/23 08/11/23 Range/Units 17:53 00:23 12:03 POC Glucose (mg/dL) 131 H 126 H 165 H (70-110) mg/dL Microbiology - Last 24 Hours (Table) 08/08/23 20:10 Gram Stain - Final Other - Other Wound Culture - Final Enterobacter aerogenes Marybeth albicans Enterococcus faecalis Assessment and Plan (1) Fever Current Visit: Yes Status: Acute Code(s): R50.9 - FEVER, UNSPECIFIED SNOMED Code(s): 887232985 (2) Leukocytosis Current Visit: Yes Status: Acute Code(s): D72.829 - ELEVATED WHITE BLOOD CELL COUNT, UNSPECIFIED SNOMED Code(s): 551970726 (3) Small bowel obstruction Current Visit: Yes Status: Acute Code(s): K56.609 - UNSP INTESTNL OBST, UNSP TO PARTIAL VERSUS COMPLETE OBST SNOMED Code(s): 535501603 (4) Peritonitis Current Visit: Yes Status: Acute Code(s): K65.9 - PERITONITIS, UNSPECIFIED SNOMED Code(s): 01177614 Plan: 1patient with low-grade fever elevated white count and this patient presented to hospital with abdominal pain and bloating and has been diagnosed with the small bowel obstruction likely etiology for his low-grade fever and elevated white count, the patient is status post laparoscopic lysis of adhesion and enterostomy abdominal cultures obtained which are currently growing Enterococcus drug-resistant Enterobacter and Marybeth 2-we will discontinue Zosyn start the patient on meropenem to cover for both drug-resistant Enterobacter as well as Enterococcus and continue with Eraxis Dictation was produced using [employer] dictation software. please excuse any grammatical, word or spelling errors. Time with Patient: Less than 30
[2023-08-11 15:55] LABS: African American GFR (CKD) 34 (>60 ml/min/1.73 sqM); Anion Gap 7 mmol/L; Blood Urea Nitrogen 27 mg/dL (9-20); Calcium 7.8 mg/dL (8.4-10.2); Carbon Dioxide 26 mmol/L (22-30); Chloride 102 mmol/L (98-107); Glucose 99 mg/dL (74-99); Magnesium 1.7 mg/dL (1.6-2.3); Non-African American GFR(CKD) 30 (>60 ml/min/1.73 sqM); Potassium 3.8 mmol/L (3.5-5.1); Sodium 135 mmol/L (137-145)
[2023-08-11] MEDS: ACETAMINOPHEN IV (For NPO) 1,000 MG in EMPTY BAG 1 BAG IVPB SCH (16:36)
[2023-08-11 18:31] LABS: Glucose,Whole Blood 134 mg/dL (70-110)
[2023-08-11] MEDS: MAGNESIUM SULFATE-D5W PMX 1 GM in DEXTROSE/WATER 1 100ML.BAG IVPB ONE (18:43)
[2023-08-11] MEDS: SODIUM PHOSPHATE 30 MMOL in DEXTROSE 5% IN WATER 250 ML IVPB ONE (21:01)
[2023-08-11] MEDS: MEROPENEM 1 GM in SODIUM CHLORIDE 0.9% 100 ML IVPB SCH (22:05)
[2023-08-11 23:56] LABS: Glucose,Whole Blood 129 mg/dL (70-110)
[2023-08-12 06:22] LABS: Glucose,Whole Blood 128 mg/dL (70-110)
--- NOTE | 2023-08-12 10:43 | P.PN ---
Subjective patient is seen for follow-up for acute kidney injury. patient was started on hemodialysis on 08/10/2023 due to persistent encephalopathy and no further improvement in renal function. Scheduled for third treatment of hemodialysis today. Good urine output noted. 1150 mL for 24 hours. Maintained on IV fluids. sleeping this morning. Patient has just received pain medication for abdominal pain. Objective - Vital Signs Vital signs: Vital Signs Temp 98.3 F 08/12/23 08:00 Pulse 102 H 08/12/23 08:00 Resp 20 08/12/23 08:00 BP 153/79 08/12/23 08:00 Pulse Ox 96 08/12/23 08:00 FiO2 Intake & Output 08/11/23 08/12/23 08/12/23 18:59 06:59 18:59 Intake Total 1449 0 238 Output Total 750 800 200 Balance 699 -800 38 Weight 77 kg 80 kg Intake: Intake, IV Titration 1049 Amount Mvi, Adult No.4 with Vit 1049 K 10 ml Trace (Conc-1Ml/ Dose) 1 ml Sodium Acetate 34 meq Potassium Acetate 20 meq Magnesium Sulfate gm 0.5 gm Calcium Gluconate 1 gm In Amino Acids 5 %/Dextrose 20 % 1 ,000 ml @ 48 mls/hr IV . [id number] [facility] Rx#:[id number] Oral 0 238 Hemodialysis 400 Output: Urine 350 800 200 Hemodialysis 400 Other: Voiding Method Indwelling Catheter Indwelling Catheter Indwelling Catheter # Bowel Movements 1 1 - Exam patient is sleeping but arousable. No acute distress Examination of the heart S1 and S2 Examination of the lungs bilateral breath sounds are heard Abdomen is soft nontender Examination of lower extremities shows no significant edema RADIOLOGY CLERK exam shows patient is moving all 4 extremities - Labs CBC & Chem 7: 08/10/23 09:28 08/11/23 14:54 Labs: Abnormal Lab Results - Last 24 Hours (Table) 08/11/23 08/11/23 08/11/23 Range/Units 12:03 14:54 18:29 Sodium 135 L (137-145) mmol/L BUN 27 H (9-20) mg/dL Creatinine 2.00 H (0.66-1.25) mg/dL POC Glucose (mg/dL) 165 H 134 H (70-110) mg/dL Calcium 7.8 L (8.4-10.2) mg/dL Phosphorus 2.0 L (2.5-4.5) mg/dL 08/11/23 08/12/23 Range/Units 23:55 06:20 Sodium (137-145) mmol/L BUN (9-20) mg/dL Creatinine (0.66-1.25) mg/dL POC Glucose (mg/dL) 129 H 128 H (70-110) mg/dL Calcium (8.4-10.2) mg/dL Phosphorus (2.5-4.5) mg/dL Microbiology - Last 24 Hours (Table) 08/08/23 20:10 Gram Stain - Final Other - Other Wound Culture - Final Enterobacter aerogenes Marybeth albicans Enterococcus faecalis Assessment and Plan Assessment: 1. Acute kidney injury secondary to ATN. nonoliguric. No hydronephrosis noted on CAT scan. UA shows 2+ protein moderate blood and WBCs 54, urine eosinophils negative,all serologies are negative as well. Renal function did not improve further with IV hydration and therefore patient was started on hemodialysis on 08/10/2023. 2. Chronic kidney disease stage IIIb with baseline creatinine 1.3-1.5 secondary to nephrosclerosis. 3. Partial small bowel obstruction. status post robotic-assisted laparoscopic lysis of adhesions and decompressive enterostomy on 08/08/2023. 4. Metabolic acidosis secondary to acute kidney injury and IV fluids. 5. Atrial tachycardia, status post Cardizem drip Plan: continue IV fluids hemodialysis today and hold over the weekend to monitor for recovery of renal function. Continue to avoid nephrotoxic agents.
[2023-08-12 11:05] LABS: ALT 18 U/L (4-49); AST 42 U/L (17-59); African American GFR (CKD) 26 (>60 ml/min/1.73 sqM); Albumin 1.9 g/dL (3.5-5.0); Alkaline Phosphatase 124 U/L (38-126); Anion Gap 7 mmol/L; Blood Urea Nitrogen 37 mg/dL (9-20); Calcium 7.5 mg/dL (8.4-10.2); Carbon Dioxide 24 mmol/L (22-30); Chloride 102 mmol/L (98-107); Glucose 109 mg/dL (74-99); Magnesium 1.8 mg/dL (1.6-2.3); Non-African American GFR(CKD) 22 (>60 ml/min/1.73 sqM); Potassium 3.2 mmol/L (3.5-5.1); Sodium 133 mmol/L (137-145); Total Bilirubin 0.5 mg/dL (0.2-1.3); Total Protein 4.2 g/dL (6.3-8.2)
[2023-08-12] MEDS ORDERED: Potassium Replacement Protocol 1 EACH MISC MISCELLANE PRN (11:11)
[2023-08-12] MEDS: POTASSIUM CHLORIDE 10 MEQ in WATER FOR INJECTION 1 100ML.BAG IVPB SCH (11:47)
[2023-08-12 11:48] LABS: Glucose,Whole Blood 128 mg/dL (70-110)
--- NOTE | 2023-08-12 12:05 | P.PN ---
Subjective Progress Note Date: 08/12/23 Principal diagnosis: Small bowel obstruction. This is a 83-year-old male patient with a known history of coronary artery disease with previous stent placement, dementia, hypertension, hyperlipidemia, hypothyroidism, non-smoker who presented here to the emergency room on 08/01/2023 with abdominal pain. He had been followed by surgical services. He did have a nasogastric tube which had approximately 2100 cc output once put in. However the patient inadvertently pulled it out last night. Today he had developed increased abdominal discomfort, tachycardia and shortness of breath. We were consulted for possible transfer to the ICU. He is seen today on the regular medical floor. He is awake and alert. He denies any pain at rest. He is tender to palpation. He is tachycardic, sinus. Currently afebrile. Continue O2 saturations in the mid 90s on 3 L/min per nasal cannula. Blood pressure stable. Blood cultures reveal no growth. White count 8.5. Hemoglobin 12.6. Platelets 373. Sodium 139. Potassium 4.6. Bicarb 14. BUN 34. Creatinine 3.11. Glucose 88. Amylase 73. Lipase 49. CT scan of the abdomen today revealed bowel obstruction pattern. Small amount of free fluid. Chest x-ray reveals no acute cardiopulmonary process. A nasogastric tube has been reinserted and in good position. He is currently on Zosyn. Patient was seen and examined today on 08/05/2023, patient is doing much better today compared to the last 2 days, less abdominal pain, no nausea no vomiting, continues to have nasogastric tube in place.WBC count is 9.9 hemoglobin 11.3 basic metabolic profile is normal however his renal functioning is worse with BUN up to 69 creatinine 5.60, and that is being addressed by nephrology on the case. His acute kidney injury is felt to be related to hemodynamic ATN, no hydronephrosis on CT of the abdomen, patient does have history of chronic kidney disease stage IIIb. Patient is on Cardizem drip now for atrial tachycardia. And cardiology is following Reevaluate today on 08/06/23, patient pulled his nasogastric tube yesterday, continues to have abdominal distention and abdominal pain. Apparently multiple attempts by nurses to place the nasogastric tube were unsuccessful. Surgery is to address the nasogastric tube placement and or exploratory laparotomy on this patient to relieve his bowel obstruction.WBC count today is 8.4 hemoglobin 10.4, basic metabolic profile is normal renal profile is worsening with a BUN of 85 creatinine 6.08 and his renal profile is being addressed by nephrology on the case Patient was reevaluated today on 08/07/2023, continues to have abdominal pain, continues to have small bowel obstruction, and now he is developing worsening renal disease. From the looks of it, patient may be heading towards dialysis. Patient was seen by Dr. Truong today, and I believe he is recommending exploratory laparotomy after he is seen by Dr. Goodman tomorrow. Continues to have decent urine output, 600 cc in the last 8 hours. Could not have a nasogastric tube placed back, patient is getting in Progress note dated August 08, 2023. 83-year-old male seen in room 378. The patient is currently on 2 L of oxygen. The patient is getting dextrose with half-normal saline at 100 cc an hour. He does have a significantly tender abdomen, anytime he burps, or coughs. Also, he is tender on palpation. Current labs include a white count 9.5, hemoglobin 11.4, hematocrit 36, and a platelet count of 343,000. Sodium 143, potassium 4.2, chlorides 107, CO2 27, BUN 93, creatinine 5.62. Calcium is 8, with a phosphorus of 5.4. Glucose is 97. Blood cultures are negative. Progress note dated August 09, 2023. 83-year-old male seen today in room 378. The patient is currently on 3 L of oxygen. NG tube remains in place. He is getting D5 with half-normal saline at 100 cc an hour. The patient has significant abdominal pain on palpation of the abdomen. Labs today include a white count 9.3, hemoglobin 10.8, hematocrit 33.9, and a platelet count of 355,000. Sodium 140, potassium 4.4, chlorides 110, CO2 22, BUN 87, and creatinine 5.53. Glucose is 116. Albumin is 2. All microbiologic sampling is thus far negative. Progress note dated August 10, 2023. 83-year-old male seen again in room 378. The patient again pulled out his NG tube. The patient is on room air. The patient is getting TPN at 30 cc an hour. The patient still has significant abdominal discomfort on palpation. I count 10.5, hemoglobin 10.7, hematocrit 33.8, and platelet count is 384,000. Sodium 140, potassium 3.8, chlorides 107, CO2 20, anion gap 13, BUN 92, creatinine 5.60. Glucose is 123. Magnesium 1.9. Phosphorus 5.2. Progress note dated August 11, 2023. 83-year-old male seen today in room 377. Currently, the patient is receiving hemodialysis. He is on room air. The patient is a DO NOT RESUSCITATE patient. He is getting TPN at 48 cc an hour. He continues on Eraxis, and Zosyn. No new laboratory data today as yet, other than a glucose of 106. Chest x-ray from yesterday shows some mild streaky basilar atelectasis. Progress note dated August 12, 2023. 83-year-old male, seen in room 377. Currently, the patient is on room air. The patient is getting TPN at 48 cc an hour. He continues on Eraxis, and meropenem. Current labs include a sodium 133, potassium 3.2, chlorides 102, CO2 24, BUN 37, creatinine 2.53. Glucose is 128. Calcium 7.5. Albumin 1.9. The patient does not appear to be as tender, on palpation of the abdomen, as he has been, on previous days. Objective - Vital Signs Vital signs: Vital Signs Temp 98.1 F 08/12/23 11:20 Pulse 100 08/12/23 11:22 Resp 18 08/12/23 11:20 BP 155/79 08/12/23 11:20 Pulse Ox 95 08/12/23 11:20 FiO2 Intake & Output 08/11/23 08/12/23 08/12/23 18:59 06:59 18:59 Intake Total 1449 0 1092.4 Output Total 750 800 475 Balance 699 -800 617.4 Weight 77 kg 80 kg Intake: Intake, IV Titration 1049 854.4 Amount Mvi, Adult No.4 with Vit 1049 854.4 K 10 ml Trace (Conc-1Ml/ Dose) 1 ml Sodium Acetate 34 meq Potassium Acetate 20 meq Magnesium Sulfate gm 0.5 gm Calcium Gluconate 1 gm In Amino Acids 5 %/Dextrose 20 % 1 ,000 ml @ 48 mls/hr IV . [id number] Rx#:[id number] Oral 0 238 Hemodialysis 400 Output: Urine 350 800 475 Hemodialysis 400 Other: Voiding Method Indwelling Catheter Indwelling Catheter Indwelling Catheter # Bowel Movements 1 1 - Exam No acute distress, oriented 3. The patient is currently on room air. No respiratory difficulty. HEENT examination is grossly unremarkable. Mucous membranes are moist. No oral lesions. Neck supple. Full range of motion. No adenopathy thyromegaly or neck vein distention. Cardiovascular examination reveals regular rhythm rate. S1-S2 normal. No S3 or S4. No discernible murmur noted. Heart rate is 89 bpm. Lungs reveal clear breath sounds. Breath sounds are equal bilaterally. No adventitious lung sounds including wheezes rhonchi or crackles. Room air saturation is 97 %. Abdomen is tender on palpation. No bowel sounds. Extremities are intact. No cyanosis clubbing or edema. Skin is without rash or lesion. Neurologic examination is brief but nonfocal. - Labs CBC & Chem 7: 08/10/23 09:28 08/12/23 10:05 Labs: Abnormal Lab Results - Last 24 Hours (Table) 08/11/23 08/11/23 08/11/23 Range/Units 12:03 14:54 18:29 Sodium 135 L (137-145) mmol/L Potassium (3.5-5.1) mmol/L BUN 27 H (9-20) mg/dL Creatinine 2.00 H (0.66-1.25) mg/dL Glucose (74-99) mg/dL POC Glucose (mg/dL) 165 H 134 H (70-110) mg/dL Calcium 7.8 L (8.4-10.2) mg/dL Phosphorus 2.0 L (2.5-4.5) mg/dL Total Protein (6.3-8.2) g/dL Albumin (3.5-5.0) g/dL 08/11/23 08/12/23 08/12/23 Range/Units 23:55 06:20 10:05 Sodium 133 L (137-145) mmol/L Potassium 3.2 L (3.5-5.1) mmol/L BUN 37 H (9-20) mg/dL Creatinine 2.53 H (0.66-1.25) mg/dL Glucose 109 H (74-99) mg/dL POC Glucose (mg/dL) 129 H 128 H (70-110) mg/dL Calcium 7.5 L (8.4-10.2) mg/dL Phosphorus (2.5-4.5) mg/dL Total Protein 4.2 L (6.3-8.2) g/dL Albumin 1.9 L (3.5-5.0) g/dL 08/12/23 Range/Units 11:47 Sodium (137-145) mmol/L Potassium (3.5-5.1) mmol/L BUN (9-20) mg/dL Creatinine (0.66-1.25) mg/dL Glucose (74-99) mg/dL POC Glucose (mg/dL) 128 H (70-110) mg/dL Calcium (8.4-10.2) mg/dL Phosphorus (2.5-4.5) mg/dL Total Protein (6.3-8.2) g/dL Albumin (3.5-5.0) g/dL Microbiology - Last 24 Hours (Table) 08/08/23 20:10 Gram Stain - Final Other - Other Wound Culture - Final Enterobacter aerogenes Marybeth albicans Enterococcus faecalis Assessment and Plan Assessment: Abdominal pain, secondary to bowel obstruction. Acute hypoxemic respiratory failure, secondary to COPD. Patient a lifelong non-smoker. History of coronary artery disease, with previous stent placement. History of hypertension. History of hyperlipidemia. History of hypothyroidism. History of dementia. Plan: Plan dated August 08, 2023. The patient is stable from the pulmonary status. Labs, x-rays, medications are reviewed. We will continue to follow, make recommendations along the way. The patient in the end, may need an exploratory laparotomy, to determine, his intra- abdominal pathology. Nephrology is addressing his worsening renal pattern. Additional recommendations and suggestions are forthcoming. We will continue to follow. Plan dated August 09, 2023. The patient now has an NG tube in place. He is getting oxygen by nasal cannula at 3 L. In addition, he is getting dextrose with half-normal saline at 100 cc an hour. The patient still has significant abdominal tenderness on palpation. Labs, x-rays, and medications are all reviewed. We will continue to follow make recommendations along the way. Prognosis is certainly guarded. No plans for surgery at this time. Plan dated August 10, 2023. The patient again pulled out his NG tube. Currently, he is on room air. The patient is receiving TPN at 30 cc an hour. Labs, x-rays, medications are reviewed. The patient still has significant abdominal tenderness. We will continue to follow make recommendations. Prognosis is guarded. The patient is a DO NOT RESUSCITATE patient. Plan dated August 11, 2023. The patient is currently on TPN at 48 cc an hour. The patient is currently receiving hemodialysis. He is on room air. The patient is a DO NOT RESUSCITATE patient. Labs, x-rays, and medications are reviewed. He continues on Eraxis, and Zosyn, as per infectious diseases. We will continue to follow, make recommendations. Prognosis is certainly very guarded. Plan dated August 12, 2023. The patient appears to be doing about the same, and continues on TPN at 48 cc an hour. The patient is currently on room air. Abdominal examination reveals the abdomen to be a bit less tender. The patient continues on Eraxis, and meropenem. Labs, x-rays, and medications are reviewed. The patient is a DO NOT RESUSCITATE patient. We will continue to follow make recommendations along the way. Prognosis is poor. Time with Patient: Less than 30
--- NOTE | 2023-08-12 12:26 | P.PN ---
Subjective Progress note Date of service/09/[address] Griffin Patient seen and evaluated [id number] and discussed with his nurse. Patient currently comfortable he is awake alert still have abdominal pain and he had 2 BMs last night and this morning He has bowel sounds occasional high-pitched. And still tenderness in the left lower quadrant. He had vomited once today surgical team has put him on p.o. Vital sign temperature 98.1 F oral Heart rate ranging between 98-100/min. And blood pressure 155/79 with a mean 104. Oxygen saturation 95%. Laboratories: Sodium 133, potassium 3.2, chloride 102, and carbon dioxide 24, anion gap 7, BUN 37 creatinine 2.53 with the going to have a dialysis today at 5 PM with the apparent improvement with the dialysis POC glucose ranging between 128 and 134 stable, calcium 7.5, phosphorus was 4, magnesium 1.8, total bilirubin 0.5, AST 42, ALT 18, alk phos 124, protein 4.2 low and albumin 1.9 low and patient on TPN and enteral lipid with the PICC line Patient also had central catheter in the right side in the subclavian for the hemodialysis. And he is currently having also the antibiotic infusing with the IV fluid. With the reviewing Dr. Simmons infectious disease note he stated that he had probable some peritonitis and intra-abdominal infection and the wound culture was positive for Enterobacter aeruginosa, Marybeth albicans, Enterococcus faecalis. And blood culture which was done earlier was negative. Patient exam Conscious alert confused intermittent agitation with underlying dementia ques tionable encephalopathy. 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 Neck was supple no JVD no thyromegaly no lymphadenopathy trachea midline Chest: The normal oxygen saturation able to breeze normally with the underlying history of COPD. And history of shortness of breath Heart: Compensated with intermittent sinus tachycardia. Abdomen positive bowel sounds but still distended and tender and he had 2 BMs still in the progress he had 1 vomiting today Extremities: No edema positive pulses Neurologically stable no further agitation with the treatment currently used Assessment 1. Hemodialysis through central catheter in the right subclavian placed by Dr. Oleg Mar vascular surgeon 2. He had a PICC line for infusion antibiotic and parenteral feeding. 3. Status post robotic laparoscopic surgery with the resolution of adhesion with the small bowel obstruction 4. Diverticulosis 5. Intra-abdominal sepsis and treated with antibiotic with the associated peritonitis per Dr. Simmons infectious disease Plan 1. Patient going to have dialysis today hemodialysis 2. Monitored by Dr. Goodman surgical team in regard of his abdomen 3. Seen by Dr. Bautista pulmonary and critical care 4. Follow-up with Cardiology associated for underlying tachycardia 5. Followed by Dr. Simmons infectious disease and adjusting the antibiotic. 6. Further treatment depending on the patient condition Objective - Vital Signs Vital signs: Vital Signs Temp 98.1 F 08/12/23 11:20 Pulse 100 08/12/23 11:22 Resp 18 08/12/23 11:20 BP 155/79 08/12/23 11:20 Pulse Ox 95 08/12/23 11:20 FiO2 Intake & Output 08/11/23 08/12/23 08/12/23 18:59 06:59 18:59 Intake Total 1449 0 1092.4 Output Total 750 800 475 Balance 699 -800 617.4 Weight 77 kg 80 kg Intake: Intake, IV Titration 1049 854.4 Amount Mvi, Adult No.4 with Vit 1049 854.4 K 10 ml Trace (Conc-1Ml/ Dose) 1 ml Sodium Acetate 34 meq Potassium Acetate 20 meq Magnesium Sulfate gm 0.5 gm Calcium Gluconate 1 gm In Amino Acids 5 %/Dextrose 20 % 1 ,000 ml @ 48 mls/hr IV . [id number] Rx#:[id number] Oral 0 238 Hemodialysis 400 Output: Urine 350 800 475 Hemodialysis 400 Other: Voiding Method Indwelling Catheter Indwelling Catheter Indwelling Catheter # Bowel Movements 1 1 - Labs CBC & Chem 7: 08/10/23 09:28 08/12/23 10:05 Labs: Abnormal Lab Results - Last 24 Hours (Table) 08/11/23 08/11/23 08/11/23 Range/Units 14:54 18:29 23:55 Sodium 135 L (137-145) mmol/L Potassium (3.5-5.1) mmol/L BUN 27 H (9-20) mg/dL Creatinine 2.00 H (0.66-1.25) mg/dL Glucose (74-99) mg/dL POC Glucose (mg/dL) 134 H 129 H (70-110) mg/dL Calcium 7.8 L (8.4-10.2) mg/dL Phosphorus 2.0 L (2.5-4.5) mg/dL Total Protein (6.3-8.2) g/dL Albumin (3.5-5.0) g/dL 08/12/23 08/12/23 08/12/23 Range/Units 06:20 10:05 11:47 Sodium 133 L (137-145) mmol/L Potassium 3.2 L (3.5-5.1) mmol/L BUN 37 H (9-20) mg/dL Creatinine 2.53 H (0.66-1.25) mg/dL Glucose 109 H (74-99) mg/dL POC Glucose (mg/dL) 128 H 128 H (70-110) mg/dL Calcium 7.5 L (8.4-10.2) mg/dL Phosphorus (2.5-4.5) mg/dL Total Protein 4.2 L (6.3-8.2) g/dL Albumin 1.9 L (3.5-5.0) g/dL Microbiology - Last 24 Hours (Table) 08/08/23 20:10 Gram Stain - Final Other - Other Wound Culture - Final Enterobacter aerogenes Marybeth albicans Enterococcus faecalis
--- NOTE | 2023-08-12 14:32 | P.PN ---
Subjective Progress Note Date: 08/12/23 CHIEF COMPLAINT: Abdominal pain HISTORY OF PRESENT ILLNESS: Patient with small bowel obstruction status post robotic assisted laparoscopic lysis of adhesions and decompressive enterostomy POD #4. Patient had a episode of vomiting after eating low fiber diet and complaining of abdominal pain. He was made NPO. Patient received IV pain medication and is sleeping comfortably. He also had episode of diarrhea. Scheduled for hemodialysis again today. Afebrile. Potassium 3.2 and being replaced creatinine 2.53 PHYSICAL EXAM: VITAL SIGNS: Reviewed GENERAL: Well-developed in no acute distress. HEENT: No sclera icterus. Extraocular movements grossly intact. Moist buccal mucosa. Head is atraumatic, normocephalic. Hears conversational speech. No nasal drainage. NECK: Supple without lymphadenopathy. CHEST: Non-labored respirations and equal bilateral excursions. CARDIOVASCULAR: Palpable 2+ radial pulses. ABDOMEN: Mildly Distended. tenderness palpation of lower abdomen. MUSCULOSKELETAL: No clubbing or cyanosis. NEUROLOGIC: No focal or lateralizing signs. Cranial nerves II through XII grossly intact. PSYCH: Appropriate affect. Alert and oriented to person, place and time. SKIN: Well perfused. Good skin turgor. ASSESSMENT: 1. Small bowel obstruction due to adhesion, lower pelvis left lower quadrant 2. Acute renal failure 3. Sigmoid diverticulosis 4. Left lower quadrant abdominal pain 5. Internal hernia pelvis 6. Ileus Expected PLAN: -Discussed exam findings with Dr. Pinzon. Will change diet to ground diet -Continue pain management -Continue IV Tylenol -Antibiotics per ID service -Continue TPN for nutrition support -Continue Mylicon gas drops Physician Armored Cable Machine Operator note has been reviewed by physician. Signing provider agrees with the documented findings, assessment, and plan of care. Please see additional documentation below CHIEF COMPLAINT: Abdominal pain HISTORY OF PRESENT ILLNESS: The patient is a 83-year-old male status post robotic lysis of adhesions for bowel obstruction including and reduction of internal hernia. He is resting comfortably at the time of assessment. He had a bowel movement. ROS: No fevers or chills. No new chest pain. PHYSICAL EXAM: VITAL SIGNS: Reviewed CONSTITUTIONAL: Well developed and in no acute distress. EYES: Conjuctivae without sclera icterus. Extraocular movements grossly intact. HEAD, EARS, NOSE, THROAT: Moist buccal mucosa. Head is atraumatic, normocephalic. Hears conversational speech. RESPIRATORY: Non-labored respirations and equal bilateral excursions. CARDIOVASCULAR: Palpable 2+ radial pulses. ABDOMEN: Dressing intact. No peritonitis. MUSCULOSKELETAL: No gross deformity of the lower extremities noted. No clubbing. No cyanosis. SKIN: Good skin turgor. Well perfused. NEUROLOGIC: Cranial nerves II through XII grossly intact. No focal or lateralizing signs. PSYCH: Alert and oriented to person. CLINICAL LABS: Reviewed. Creatinine improving from 6.38 to 2.53. ASSESSMENT: 1. Small bowel obstruction due to adhesions with abdominal pain 2. Supraventricular tachycardia 3. Acute onset renal failure PLAN: 1. May have ground diet. 2. Correct electrolytes as may contribute to ileus 3. Antibiotic management 4. Continue TPN 5. Continue simethicone for gaseous distention. Objective - Vital Signs Vital signs: Vital Signs Temp 98.3 F 08/12/23 08:00 Pulse 102 H 08/12/23 08:00 Resp 20 08/12/23 08:00 BP 153/79 08/12/23 08:00 Pulse Ox 96 08/12/23 08:00 FiO2 Intake & Output 08/11/23 08/12/23 08/12/23 18:59 06:59 18:59 Intake Total 1449 0 238 Output Total 750 800 200 Balance 699 -800 38 Weight 77 kg 80 kg Intake: Intake, IV Titration 1049 Amount Mvi, Adult No.4 with Vit 1049 K 10 ml Trace (Conc-1Ml/ Dose) 1 ml Sodium Acetate 34 meq Potassium Acetate 20 meq Magnesium Sulfate gm 0.5 gm Calcium Gluconate 1 gm In Amino Acids 5 %/Dextrose 20 % 1 ,000 ml @ 48 mls/hr IV . [id number] [facility] Rx#:[id number] Oral 0 238 Hemodialysis 400 Output: Urine 350 800 200 Hemodialysis 400 Other: Voiding Method Indwelling Catheter Indwelling Catheter Indwelling Catheter # Bowel Movements 1 1 - Labs CBC & Chem 7: 08/10/23 09:28 08/12/23 10:05 Labs: Abnormal Lab Results - Last 24 Hours (Table) 08/11/23 08/11/23 08/11/23 Range/Units 12:03 14:54 18:29 Sodium 135 L (137-145) mmol/L BUN 27 H (9-20) mg/dL Creatinine 2.00 H (0.66-1.25) mg/dL POC Glucose (mg/dL) 165 H 134 H (70-110) mg/dL Calcium 7.8 L (8.4-10.2) mg/dL Phosphorus 2.0 L (2.5-4.5) mg/dL 08/11/23 08/12/23 Range/Units 23:55 06:20 Sodium (137-145) mmol/L BUN (9-20) mg/dL Creatinine (0.66-1.25) mg/dL POC Glucose (mg/dL) 129 H 128 H (70-110) mg/dL Calcium (8.4-10.2) mg/dL Phosphorus (2.5-4.5) mg/dL Microbiology - Last 24 Hours (Table) 08/08/23 20:10 Gram Stain - Final Other - Other Wound Culture - Final Enterobacter aerogenes Marybeth albicans Enterococcus faecalis
--- NOTE | 2023-08-12 15:23 | P.PN ---
Subjective Progress Note Date: 08/12/23 Principal diagnosis: Reason for follow-up is fever likely abdominal source Patient is a 83-year-old male with a past medical history significant for coronary disease COPD dementia hypertension hyperlipidemia reflux presenting to the hospital for evaluation of abdominal pain bloating has been diagnosed with the distal small bowel obstruction developing a fever concerning for possible abdominal sepsis prompting this consultation.Patient is status post robotic assisted laparoscopic lysis of adhesion extensive and decompressive enterostomy that was completed on 08/08/2023 On today's evaluation that is 08/12/2023,the patient remains to be afebrile, patient is on room air not requiring supplemental oxygen, patient did have an episode of vomiting after eating breakfast this morning per the sitter at the bedside patient has been made n.p.o. is currently lethargic sleeping and cannot provide any history no bowel movement reported. Patient did have a creatinine of 2.53 liver enzymes normal Objective - Vital Signs Vital signs: Vital Signs Temp 98.1 F 08/12/23 11:20 Pulse 100 08/12/23 11:22 Resp 18 08/12/23 11:20 BP 155/79 08/12/23 11:20 Pulse Ox 95 08/12/23 11:20 FiO2 Intake & Output 08/11/23 08/12/23 08/12/23 18:59 06:59 18:59 Intake Total 1449 0 1092.4 Output Total 750 800 475 Balance 699 -800 617.4 Weight 77 kg 80 kg 80 kg Intake: Intake, IV Titration 1049 854.4 Amount Mvi, Adult No.4 with Vit 1049 854.4 K 10 ml Trace (Conc-1Ml/ Dose) 1 ml Sodium Acetate 34 meq Potassium Acetate 20 meq Magnesium Sulfate gm 0.5 gm Calcium Gluconate 1 gm In Amino Acids 5 %/Dextrose 20 % 1 ,000 ml @ 48 mls/hr IV . [id number] [facility] Rx#:[id number] Oral 0 238 Hemodialysis 400 Output: Urine 350 800 475 Hemodialysis 400 Other: Voiding Method Indwelling Catheter Indwelling Catheter Indwelling Catheter # Bowel Movements 1 1 - Exam GENERAL DESCRIPTION: An elderly male up in the chair in no distress RESPIRATORY SYSTEM: Unlabored breathing , decreased breath sounds at bases HEART: S1 S2 regular rate and rhythm , ABDOMEN: Soft , no tenderness EXTREMITIES: No edema feet - Labs CBC & Chem 7: 08/10/23 09:28 08/12/23 10:05 Labs: Abnormal Lab Results - Last 24 Hours (Table) 08/11/23 08/11/23 08/11/23 Range/Units 14:54 18:29 23:55 Sodium 135 L (137-145) mmol/L Potassium (3.5-5.1) mmol/L BUN 27 H (9-20) mg/dL Creatinine 2.00 H (0.66-1.25) mg/dL Glucose (74-99) mg/dL POC Glucose (mg/dL) 134 H 129 H (70-110) mg/dL Calcium 7.8 L (8.4-10.2) mg/dL Phosphorus 2.0 L (2.5-4.5) mg/dL Total Protein (6.3-8.2) g/dL Albumin (3.5-5.0) g/dL 08/12/23 08/12/23 08/12/23 Range/Units 06:20 10:05 11:47 Sodium 133 L (137-145) mmol/L Potassium 3.2 L (3.5-5.1) mmol/L BUN 37 H (9-20) mg/dL Creatinine 2.53 H (0.66-1.25) mg/dL Glucose 109 H (74-99) mg/dL POC Glucose (mg/dL) 128 H 128 H (70-110) mg/dL Calcium 7.5 L (8.4-10.2) mg/dL Phosphorus (2.5-4.5) mg/dL Total Protein 4.2 L (6.3-8.2) g/dL Albumin 1.9 L (3.5-5.0) g/dL Assessment and Plan (1) Fever Current Visit: Yes Status: Acute Code(s): R50.9 - FEVER, UNSPECIFIED SNOMED Code(s): 913897246 (2) Leukocytosis Current Visit: Yes Status: Acute Code(s): D72.829 - ELEVATED WHITE BLOOD CELL COUNT, UNSPECIFIED SNOMED Code(s): 180921544 (3) Small bowel obstruction Current Visit: Yes Status: Acute Code(s): K56.609 - UNSP INTESTNL OBST, UNSP TO PARTIAL VERSUS COMPLETE OBST SNOMED Code(s): 810991718 (4) Peritonitis Current Visit: Yes Status: Acute Code(s): K65.9 - PERITONITIS, UNSPECIFIED SNOMED Code(s): 16607689 Plan: 1patient with low-grade fever elevated white count and this patient presented to hospital with abdominal pain and bloating and has been diagnosed with the small bowel obstruction likely etiology for his low-grade fever and elevated white count, the patient is status post laparoscopic lysis of adhesion and enterostomy abdominal cultures obtained which are currently growing Enterococcus drug-resistant Enterobacter and Marybeth 2-patient to continue with meropenem to cover for both drug-resistant Enterobacter as well as Enterococcus and continue with Eraxis and monitor clinical course closely Dictation was produced using isango! dictation software. please excuse any grammatical, word or spelling errors. Time with Patient: Less than 30
[2023-08-12] MEDS: ONDANSETRON 4 MG/2 ML VIAL IVP SCH (17:17)
[2023-08-12] MEDS: ACETAMINOPHEN IV (For NPO) 1,000 MG in EMPTY BAG 1 BAG IVPB SCH (17:17)
[2023-08-12 18:01] LABS: Glucose,Whole Blood 117 mg/dL (70-110)
[2023-08-13 00:04] LABS: Glucose,Whole Blood 121 mg/dL (70-110)
[2023-08-13 06:15] LABS: Glucose,Whole Blood 112 mg/dL (70-110)
[2023-08-13 11:33] LABS: ALT 25 U/L (4-49); AST 56 U/L (17-59); African American GFR (CKD) 35 (>60 ml/min/1.73 sqM); Albumin 1.9 g/dL (3.5-5.0); Alkaline Phosphatase 179 U/L (38-126); Anion Gap 5 mmol/L; Blood Urea Nitrogen 23 mg/dL (9-20); Calcium 7.5 mg/dL (8.4-10.2); Carbon Dioxide 25 mmol/L (22-30); Chloride 101 mmol/L (98-107); Glucose 88 mg/dL (74-99); Magnesium 1.7 mg/dL (1.6-2.3); Non-African American GFR(CKD) 30 (>60 ml/min/1.73 sqM); Phosphorus 2.6 mg/dL (2.5-4.5); Potassium 3.3 mmol/L (3.5-5.1); Sodium 131 mmol/L (137-145); Total Bilirubin 0.4 mg/dL (0.2-1.3); Total Protein 4.3 g/dL (6.3-8.2)
[2023-08-13 11:51] LABS: Glucose,Whole Blood 115 mg/dL (70-110)
[2023-08-13] MEDS: POTASSIUM CHLORIDE ER 20 MEQ TAB.ER PO SCH (12:05)
--- NOTE | 2023-08-13 13:00 | P.PN ---
Subjective Progress Note Date: 08/13/23 Principal diagnosis: Small bowel obstruction. This is a 83-year-old male patient with a known history of coronary artery disease with previous stent placement, dementia, hypertension, hyperlipidemia, hypothyroidism, non-smoker who presented here to the emergency room on 08/01/2023 with abdominal pain. He had been followed by surgical services. He did have a nasogastric tube which had approximately 2100 cc output once put in. However the patient inadvertently pulled it out last night. Today he had developed increased abdominal discomfort, tachycardia and shortness of breath. We were consulted for possible transfer to the ICU. He is seen today on the regular medical floor. He is awake and alert. He denies any pain at rest. He is tender to palpation. He is tachycardic, sinus. Currently afebrile. Continue O2 saturations in the mid 90s on 3 L/min per nasal cannula. Blood pressure stable. Blood cultures reveal no growth. White count 8.5. Hemoglobin 12.6. Platelets 373. Sodium 139. Potassium 4.6. Bicarb 14. BUN 34. Creatinine 3.11. Glucose 88. Amylase 73. Lipase 49. CT scan of the abdomen today revealed bowel obstruction pattern. Small amount of free fluid. Chest x-ray reveals no acute cardiopulmonary process. A nasogastric tube has been reinserted and in good position. He is currently on Zosyn. Patient was seen and examined today on 08/05/2023, patient is doing much better today compared to the last 2 days, less abdominal pain, no nausea no vomiting, continues to have nasogastric tube in place.WBC count is 9.9 hemoglobin 11.3 basic metabolic profile is normal however his renal functioning is worse with BUN up to 69 creatinine 5.60, and that is being addressed by nephrology on the case. His acute kidney injury is felt to be related to hemodynamic ATN, no hydronephrosis on CT of the abdomen, patient does have history of chronic kidney disease stage IIIb. Patient is on Cardizem drip now for atrial tachycardia. And cardiology is following Reevaluate today on 08/06/23, patient pulled his nasogastric tube yesterday, continues to have abdominal distention and abdominal pain. Apparently multiple attempts by nurses to place the nasogastric tube were unsuccessful. Surgery is to address the nasogastric tube placement and or exploratory laparotomy on this patient to relieve his bowel obstruction.WBC count today is 8.4 hemoglobin 10.4, basic metabolic profile is normal renal profile is worsening with a BUN of 85 creatinine 6.08 and his renal profile is being addressed by nephrology on the case Patient was reevaluated today on 08/07/2023, continues to have abdominal pain, continues to have small bowel obstruction, and now he is developing worsening renal disease. From the looks of it, patient may be heading towards dialysis. Patient was seen by Dr. Truong today, and I believe he is recommending exploratory laparotomy after he is seen by Dr. Goodman tomorrow. Continues to have decent urine output, 600 cc in the last 8 hours. Could not have a nasogastric tube placed back, patient is getting in Progress note dated August 08, 2023. 83-year-old male seen in room 378. The patient is currently on 2 L of oxygen. The patient is getting dextrose with half-normal saline at 100 cc an hour. He does have a significantly tender abdomen, anytime he burps, or coughs. Also, he is tender on palpation. Current labs include a white count 9.5, hemoglobin 11.4, hematocrit 36, and a platelet count of 343,000. Sodium 143, potassium 4.2, chlorides 107, CO2 27, BUN 93, creatinine 5.62. Calcium is 8, with a phosphorus of 5.4. Glucose is 97. Blood cultures are negative. Progress note dated August 09, 2023. 83-year-old male seen today in room 378. The patient is currently on 3 L of oxygen. NG tube remains in place. He is getting D5 with half-normal saline at 100 cc an hour. The patient has significant abdominal pain on palpation of the abdomen. Labs today include a white count 9.3, hemoglobin 10.8, hematocrit 33.9, and a platelet count of 355,000. Sodium 140, potassium 4.4, chlorides 110, CO2 22, BUN 87, and creatinine 5.53. Glucose is 116. Albumin is 2. All microbiologic sampling is thus far negative. Progress note dated August 10, 2023. 83-year-old male seen again in room 378. The patient again pulled out his NG tube. The patient is on room air. The patient is getting TPN at 30 cc an hour. The patient still has significant abdominal discomfort on palpation. I count 10.5, hemoglobin 10.7, hematocrit 33.8, and platelet count is 384,000. Sodium 140, potassium 3.8, chlorides 107, CO2 20, anion gap 13, BUN 92, creatinine 5.60. Glucose is 123. Magnesium 1.9. Phosphorus 5.2. Progress note dated August 11, 2023. 83-year-old male seen today in room 377. Currently, the patient is receiving hemodialysis. He is on room air. The patient is a DO NOT RESUSCITATE patient. He is getting TPN at 48 cc an hour. He continues on Eraxis, and Zosyn. No new laboratory data today as yet, other than a glucose of 106. Chest x-ray from yesterday shows some mild streaky basilar atelectasis. Progress note dated August 12, 2023. 83-year-old male, seen in room 377. Currently, the patient is on room air. The patient is getting TPN at 48 cc an hour. He continues on Eraxis, and meropenem. Current labs include a sodium 133, potassium 3.2, chlorides 102, CO2 24, BUN 37, creatinine 2.53. Glucose is 128. Calcium 7.5. Albumin 1.9. The patient does not appear to be as tender, on palpation of the abdomen, as he has been, on previous days. Progress note dated August 13, 2023. 83-year-old male seen today in room 377. The patient continues on room air. Saturations are 94%. The rest of his vital signs are relatively stable. The patient continues on TPN at 48 cc an hour, and D5.45, at 100 cc an hour. He also continues on meropenem, and the antifungal, and Eraxis. Current laboratory data includes a sodium 131, potassium 3.3, chlorides 101, CO2 25, BUN 23, creatinine 1.96. Glucose is 115. Albumin is 1.9. Wound cultures were positive for Enterobacter aerogenes, Marybeth albicans, and Enterococcus faecalis. Objective - Vital Signs Vital signs: Vital Signs Temp 97.8 F 08/13/23 12:00 Pulse 100 08/13/23 12:00 Resp 18 08/13/23 12:00 BP 150/79 08/13/23 12:00 Pulse Ox 94 L 08/13/23 12:00 FiO2 Intake & Output 0408/13/23 08/13/23 18:59 06:59 18:59 Intake Total 1092.4 400 1167 Output Total 950 1600 Balance 142.4 -1200 1167 Weight 80 kg 82.5 kg Intake: Intake, IV Titration 854.4 1049 Amount Mvi, Adult No.4 with Vit 854.4 1049 K 10 ml Trace (Conc-1Ml/ Dose) 1 ml Sodium Acetate 34 meq Potassium Acetate 20 meq Magnesium Sulfate gm 0.5 gm Calcium Gluconate 1 gm In Amino Acids 5 %/Dextrose 20 % 1 ,000 ml @ 48 mls/hr IV . [id number] [facility] Rx#:[id number] Oral 238 0 118 Hemodialysis 400 Output: Urine 950 1200 Hemodialysis 400 Other: Voiding Method Indwelling Catheter Indwelling Catheter Indwelling Catheter # Bowel Movements 1 - Exam No acute distress, oriented 3. The patient is currently on room air. No respiratory difficulty. HEENT examination is grossly unremarkable. Mucous membranes are moist. No oral lesions. Neck supple. Full range of motion. No adenopathy thyromegaly or neck vein distention. Cardiovascular examination reveals regular rhythm rate. S1-S2 normal. No S3 or S4. No discernible murmur noted. Heart rate is 100 bpm. Lungs reveal clear breath sounds. Breath sounds are equal bilaterally. No adventitious lung sounds including wheezes rhonchi or crackles. Room air saturation is 96 %. Abdomen is tender on palpation. No bowel sounds. Extremities are intact. No cyanosis clubbing or edema. Skin is without rash or lesion. Neurologic examination is brief but nonfocal. - Labs CBC & Chem 7: 08/10/23 09:28 08/13/23 10:31 Labs: Abnormal Lab Results - Last 24 Hours (Table) 08/12/23 08/13/23 08/13/23 Range/Units 18:00 00:03 06:14 Sodium (137-145) mmol/L Potassium (3.5-5.1) mmol/L BUN (9-20) mg/dL Creatinine (0.66-1.25) mg/dL POC Glucose (mg/dL) 117 H 121 H 112 H (70-110) mg/dL Calcium (8.4-10.2) mg/dL Alkaline Phosphatase (38-126) U/L Total Protein (6.3-8.2) g/dL Albumin (3.5-5.0) g/dL 08/13/23 08/13/23 Range/Units 10:31 11:47 Sodium 131 L (137-145) mmol/L Potassium 3.3 L (3.5-5.1) mmol/L BUN 23 H (9-20) mg/dL Creatinine 1.96 H (0.66-1.25) mg/dL POC Glucose (mg/dL) 115 H (70-110) mg/dL Calcium 7.5 L (8.4-10.2) mg/dL Alkaline Phosphatase 179 H (38-126) U/L Total Protein 4.3 L (6.3-8.2) g/dL Albumin 1.9 L (3.5-5.0) g/dL Assessment and Plan Assessment: Abdominal pain, secondary to bowel obstruction. Acute hypoxemic respiratory failure, secondary to COPD. Patient a lifelong non-smoker. History of coronary artery disease, with previous stent placement. History of hypertension. History of hyperlipidemia. History of hypothyroidism. History of dementia. Plan: Plan dated August 08, 2023. The patient is stable from the pulmonary status. Labs, x-rays, medications are reviewed. We will continue to follow, make recommendations along the way. The patient in the end, may need an exploratory laparotomy, to determine, his intra- abdominal pathology. Nephrology is addressing his worsening renal pattern. Additional recommendations and suggestions are forthcoming. We will continue to follow. Plan dated August 09, 2023. The patient now has an NG tube in place. He is getting oxygen by nasal cannula at 3 L. In addition, he is getting dextrose with half-normal saline at 100 cc an hour. The patient still has significant abdominal tenderness on palpation. Labs, x-rays, and medications are all reviewed. We will continue to follow make recommendations along the way. Prognosis is certainly guarded. No plans for surgery at this time. Plan dated August 10, 2023. The patient again pulled out his NG tube. Currently, he is on room air. The patient is receiving TPN at 30 cc an hour. Labs, x-rays, medications are reviewed. The patient still has significant abdominal tenderness. We will c damirue to follow make recommendations. Prognosis is guarded. The patient is a DO NOT RESUSCITATE patient. Plan dated August 11, 2023. The patient is currently on TPN at 48 cc an hour. The patient is currently receiving hemodialysis. He is on room air. The patient is a DO NOT RESUSCITATE patient. Labs, x-rays, and medications are reviewed. He continues on Eraxis, and Zosyn, as per infectious diseases. We will continue to follow, make recommendations. Prognosis is certainly very guarded. Plan dated August 12, 2023. The patient appears to be doing about the same, and continues on TPN at 48 cc an hour. The patient is currently on room air. Abdominal examination reveals the abdomen to be a bit less tender. The patient continues on Eraxis, and meropenem. Labs, x-rays, and medications are reviewed. The patient is a DO NOT RESUSCITATE patient. We will continue to follow make recommendations along the way. Prognosis is poor. Plan dated August 13, 2023. The patient continues on TPN at 48 cc an hour. The patient is on room air. The patient also is on meropenem and Eraxis. The patient's IV is D5 with half- normal saline at 100 cc an hour. We will continue to follow the patient, make recommendations along the way. Labs, x-rays, and medications are reviewed. The patient is a DO NOT RESUSCITATE patient. Prognosis is poor. Time with Patient: Less than 30
--- NOTE | 2023-08-13 13:09 | P.PN ---
Subjective Progress Note Date: 08/13/23 Progress note Date of Dictation by Dr. Griffin Patient seen at bedside conscious alert and he open his eyes able to shake my hand Still complaining for abdominal pain and distention, despite that he had 2 bowel movement but the abdomen still distended and tender and traumatic on percussion. His renal function has been improved and he had yesterday hemodialysis. And his laboratory indicating, creatinine 1.96 and a GFR 30 for non- Patient on Intralipid and TPN and his blood sugar is stable ranging between 121 and 112. Liver enzymes normal, alkaline phosphatase 179, protein 4.3, albumin 1.9 with the underlying severe nutritional deficiency with the start of clear liquid per the surgeon's team. Patient is status post robotic laparoscopic resolution of adhesion per Dr. Pinzon followed by ileus. He had underlying acute kidney injury with nonoliguric acute renal failure cur rently patient started to urinate. Patient has Dow catheter for monitoring also has central line for dialysis as well as PICC line for the parenteral nutrition. On exam: Temperature 97.8 F oral, heart rate 100/min, respiratory rate 18/min nonlabored, blood pressure 150/79 with a mean 102, oxygen saturation on room air 94%. Head is normocephalic atraumatic and he had left facial drooping with the drooping left eyelid which is chronically present Oropharynx intermittent oropharyngeal dysphagia however he is now allowed the clear liquid diet he has natural teeth. Neck was supple no JVD no thyromegaly no lymphadenopathy trachea midline. Chest breath sounds is normal with underlying COPD and occasional rhonchi's no recent complaint of shortness of breath Heart: Compensated, normal S1-S2 no gallop PMI in the fifth intercostal space mildly outside midclavicular line. Abdomen: Distended, tympanitic, tender on palpation. Bowel sounds is diminished Extremities: No edema positive pulses. Neurologically stable with intermittent agitation and history of cognitive function impairment. Assessment: 1. Patient still with postoperative ileus and status post robotic laparoscopic lysis of adhesion of the abdomen with the underlying small bowel obstruction secondary to adhesion. 2. Acute kidney injury, underwent hemodialysis last 1 on patient followed by nephrology 3. Patient had 2 BMs and followed by Dr. Pinzon the surgical team 4. COPD with a history of asthma currently stable 5. Sinus tachycardia currently stable. Plan: Will continue the current treatment, continue following with recommendation and the treatment of Dr. Pinzon the surgeon Monitoring renal function, monitored by also nephrology and future dialysis depend on his renal function. Patient on library monitor Patient also monitored by pulmonary and critical with his oxygenation is stable now. Patient monitored by cardiology as well Patient monitored by infectious disease Dr. Simmons. Objective - Vital Signs Vital signs: Vital Signs Temp 97.8 F 08/13/23 12:00 Pulse 100 08/13/23 12:00 Resp 18 08/13/23 12:00 BP 150/79 08/13/23 12:00 Pulse Ox 94 L 08/13/23 12:00 FiO2 Intake & Output 08/12/23 08/13/23 08/13/23 18:59 06:59 18:59 Intake Total 1092.4 400 1167 Output Total 950 1600 Balance 142.4 -1200 1167 Weight 80 kg 82.5 kg Intake: Intake, IV Titration 854.4 1049 Amount Mvi, Adult No.4 with Vit 854.4 1049 K 10 ml Trace (Conc-1Ml/ Dose) 1 ml Sodium Acetate 34 meq Potassium Acetate 20 meq Magnesium Sulfate gm 0.5 gm Calcium Gluconate 1 gm In Amino Acids 5 %/Dextrose 20 % 1 ,000 ml @ 48 mls/hr IV . [id number] [facility] Rx#:[id number] Oral 238 0 118 Hemodialysis 400 Output: Urine 950 1200 Hemodialysis 400 Other: Voiding Method Indwelling Catheter Indwelling Catheter Indwelling Catheter # Bowel Movements 1 - Labs CBC & Chem 7: 08/10/23 09:28 08/13/23 10:31 Labs: Abnormal Lab Results - Last 24 Hours (Table) 08/12/23 08/13/23 08/13/23 Range/Units 18:00 00:03 06:14 Sodium (137-145) mmol/L Potassium (3.5-5.1) mmol/L BUN (9-20) mg/dL Creatinine (0.66-1.25) mg/dL POC Glucose (mg/dL) 117 H 121 H 112 H (70-110) mg/dL Calcium (8.4-10.2) mg/dL Alkaline Phosphatase (38-126) U/L Total Protein (6.3-8.2) g/dL Albumin (3.5-5.0) g/dL 08/13/23 08/13/23 Range/Units 10:31 11:47 Sodium 131 L (137-145) mmol/L Potassium 3.3 L (3.5-5.1) mmol/L BUN 23 H (9-20) mg/dL Creatinine 1.96 H (0.66-1.25) mg/dL POC Glucose (mg/dL) 115 H (70-110) mg/dL Calcium 7.5 L (8.4-10.2) mg/dL Alkaline Phosphatase 179 H (38-126) U/L Total Protein 4.3 L (6.3-8.2) g/dL Albumin 1.9 L (3.5-5.0) g/dL
--- NOTE | 2023-08-13 13:21 | P.PN ---
Subjective Progress Note Date: 08/13/23 Patient is seen for follow-up for acute kidney injury. Was started on hemodialysis on 08/10/2023 due to persistent encephalopathy and no further improvement in renal function.Third treatment of hemodialysis yesterday now with improved urine output. No acute distress Examination of the heart S1 and S2 Examination of the lungs bilateral breath sounds are heard Abdomen is soft nontender Examination of lower extremities shows no significant edema [employer] exam shows patient is moving all 4 extremities Objective - Vital Signs Vital signs: Vital Signs Temp 97.6 F 08/12/23 20:21 Pulse 92 08/13/23 08:36 Resp 16 08/13/23 04:00 BP 120/58 08/13/23 04:00 Pulse Ox 94 L 08/13/23 04:00 FiO2 Intake & Output 08/12/23 08/13/23 08/13/23 18:59 06:59 18:59 Intake Total 1092.4 400 1167 Output Total 950 1600 Balance 142.4 -1200 1167 Weight 80 kg 82.5 kg Intake: Intake, IV Titration 854.4 1049 Amount Mvi, Adult No.4 with Vit 854.4 1049 K 10 ml Trace (Conc-1Ml/ Dose) 1 ml Sodium Acetate 34 meq Potassium Acetate 20 meq Magnesium Sulfate gm 0.5 gm Calcium Gluconate 1 gm In Amino Acids 5 %/Dextrose 20 % 1 ,000 ml @ 48 mls/hr IV . [id number] [facility] Rx#:[id number] Oral 238 0 118 Hemodialysis 400 Output: Urine 950 1200 Hemodialysis 400 Other: Voiding Method Indwelling Catheter Indwelling Catheter # Bowel Movements 1 - Labs CBC & Chem 7: 08/10/23 09:28 08/13/23 10:31 Labs: Abnormal Lab Results - Last 24 Hours (Table) 08/12/23 08/12/23 08/13/23 Range/Units 11:47 18:00 00:03 POC Glucose (mg/dL) 128 H 117 H 121 H (70-110) mg/dL 08/13/23 Range/Units 06:14 POC Glucose (mg/dL) 112 H (70-110) mg/dL Assessment and Plan Plan: 1. Acute kidney injury secondary to ATN. nonoliguric. No hydronephrosis noted on CAT scan. UA shows 2+ protein moderate blood and WBCs 54, urine eosinophils negative,all serologies are negative as well. Renal function did not improve further with IV hydration and therefore patient was started on hemodialysis on 08/10/2023. 2. Chronic kidney disease stage IIIb with baseline creatinine 1.3-1.5 secondary to nephrosclerosis. 3. Partial small bowel obstruction. status post robotic-assisted l aparoscopic lysis of adhesions and decompressive enterostomy on 08/08/2023. 4. Metabolic acidosis secondary to acute kidney injury and IV fluids. 5. Atrial tachycardia, status post Cardizem drip Plan: Continue IV fluids Hold hemodialysis over the weekend to monitor for recovery of renal function. Continue to avoid nephrotoxic agents.
--- NOTE | 2023-08-13 14:46 | P.PN ---
Subjective Progress Note Date: 08/13/23 Principal diagnosis: Reason for follow-up is fever likely abdominal source Patient is a 83-year-old male with a past medical history significant for coronary disease COPD dementia hypertension hyperlipidemia reflux presenting to the hospital for evaluation of abdominal pain bloating has been diagnosed with the distal small bowel obstruction developing a fever concerning for possible abdominal sepsis prompting this consultation.Patient is status post robotic assisted laparoscopic lysis of adhesion extensive and decompressive enterostomy that was completed on 08/08/2023 On today's evaluation that is 08/13/2023, the patient continues to be afebrile, the patient is on room air and breathing comfortably, the Pt denies having any chest pain or cough, the patient abdominal pain seem to have decreased in intensity and did have a bowel movement for the sitter at the bedside. Patient did have a creatinine 1.96 no CBC was done today Objective - Vital Signs Vital signs: Vital Signs Temp 97.8 F 08/13/23 12:00 Pulse 100 08/13/23 12:00 Resp 18 08/13/23 12:00 BP 150/79 08/13/23 12:00 Pulse Ox 94 L 08/13/23 12:00 FiO2 Intake & Output 08/12/23 08/13/23 08/13/23 18:59 06:59 18:59 Intake Total 1092.4 400 1167 Output Total 950 1600 600 Balance 142.4 -1200 567 Weight 80 kg 82.5 kg Intake: Intake, IV Titration 854.4 1049 Amount Mvi, Adult No.4 with Vit 854.4 1049 K 10 ml Trace (Conc-1Ml/ Dose) 1 ml Sodium Acetate 34 meq Potassium Acetate 20 meq Magnesium Sulfate gm 0.5 gm Calcium Gluconate 1 gm In Amino Acids 5 %/Dextrose 20 % 1 ,000 ml @ 48 mls/hr IV . [id number] [facility] Rx#:[id number] Oral 238 0 118 Hemodialysis 400 Output: Urine 950 1200 600 Hemodialysis 400 Other: Voiding Method Indwelling Catheter Indwelling Catheter Indwelling Catheter # Bowel Movements 1 - Exam GENERAL DESCRIPTION: An elderly male up in the chair in no distress RESPIRATORY SYSTEM: Unlabored breathing , decreased breath sounds at bases HEART: S1 S2 regular rate and rhythm , ABDOMEN: Soft , no tenderness EXTREMITIES: No edema feet - Labs CBC & Chem 7: 08/10/23 09:28 08/13/23 10:31 Labs: Abnormal Lab Results - Last 24 Hours (Table) 08/12/23 08/13/23 08/13/23 Range/Units 18:00 00:03 06:14 Sodium (137-145) mmol/L Potassium (3.5-5.1) mmol/L BUN (9-20) mg/dL Creatinine (0.66-1.25) mg/dL POC Glucose (mg/dL) 117 H 121 H 112 H (70-110) mg/dL Calcium (8.4-10.2) mg/dL Alkaline Phosphatase (38-126) U/L Total Protein (6.3-8.2) g/dL Albumin (3.5-5.0) g/dL 08/13/23 08/13/23 Range/Units 10:31 11:47 Sodium 131 L (137-145) mmol/L Potassium 3.3 L (3.5-5.1) mmol/L BUN 23 H (9-20) mg/dL Creatinine 1.96 H (0.66-1.25) mg/dL POC Glucose (mg/dL) 115 H (70-110) mg/dL Calcium 7.5 L (8.4-10.2) mg/dL Alkaline Phosphatase 179 H (38-126) U/L Total Protein 4.3 L (6.3-8.2) g/dL Albumin 1.9 L (3.5-5.0) g/dL Microbiology - Last 24 Hours (Table) 08/08/23 20:10 Anaerobic Culture - Final Intestinal Assessment and Plan (1) Fever Current Visit: Yes Status: Acute Code(s): R50.9 - FEVER, UNSPECIFIED SNOMED Code(s): 858117970 (2) Leukocytosis Current Visit: Yes Status: Acute Code(s): D72.829 - ELEVATED WHITE BLOOD CELL COUNT, UNSPECIFIED SNOMED Code(s): 872759144 (3) Small bowel obstruction Current Visit: Yes Status: Acute Code(s): K56.609 - UNSP INTESTNL OBST, UNSP TO PARTIAL VERSUS COMPLETE OBST SNOMED Code(s): 668805053 (4) Peritonitis Current Visit: Yes Status: Acute Code(s): K65.9 - PERITONITIS, UNSPECIFIED SNOMED Code(s): 28464362 Plan: 1patient with low-grade fever elevated white count and this patient presented to hospital with abdominal pain and bloating and has been diagnosed with the small bowel obstruction likely etiology for his low-grade fever and elevated white count, the patient is status post laparoscopic lysis of adhesion and enterostomy abdominal cultures obtained which are currently growing Enterococcus drug-resistant Enterobacter and Marybeth 2-patient is afebrile, we will check a CBC with a.m. lab and for now continue with meropenem to cover for both drug-resistant Enterobacter as well as Enterococcus along with Eraxis for Marybeth albicans and monitor clinical course closely Dictation was produced using [employer] dictation software. please excuse any grammatical, word or spelling errors. Time with Patient: Less than 30
[2023-08-13 18:13] LABS: Glucose,Whole Blood 117 mg/dL (70-110)
--- NOTE | 2023-08-13 18:21 | P.PN ---
Subjective Patient seen and evaluated at bedside. no complaints, no overnight issue. Objective - Vital Signs Vital signs: Vital Signs Temp 99.0 F 08/13/23 16:00 Pulse 90 08/13/23 16:28 Resp 18 08/13/23 16:00 BP 150/79 08/13/23 16:00 Pulse Ox 95 08/13/23 16:00 FiO2 Intake & Output 08/12/23 08/13/23 08/13/23 18:59 06:59 18:59 Intake Total 1092.4 400 1285 Output Total 950 1600 600 Balance 142.4 -1200 685 Weight 80 kg 82.5 kg Intake: Intake, IV Titration 854.4 1049 Amount Mvi, Adult No.4 with Vit 854.4 1049 K 10 ml Trace (Conc-1Ml/ Dose) 1 ml Sodium Acetate 34 meq Potassium Acetate 20 meq Magnesium Sulfate gm 0.5 gm Calcium Gluconate 1 gm In Amino Acids 5 %/Dextrose 20 % 1 ,000 ml @ 48 mls/hr IV . [id number] [facility] Rx#:[id number] Oral 238 0 236 Hemodialysis 400 Output: Urine 950 1200 600 Hemodialysis 400 Other: Voiding Method Indwelling Catheter Indwelling Catheter Indwelling Catheter # Bowel Movements 1 - Exam gen: nad cv: rrr pul: non labored breathing abd: soft, min tender to palpation, no guarding or rebound tenderness - Labs CBC & Chem 7: 08/10/23 09:28 08/13/23 10:31 Labs: Abnormal Lab Results - Last 24 Hours (Table) 08/13/23 08/13/23 08/13/23 Range/Units 00:03 06:14 10:31 Sodium 131 L (137-145) mmol/L Potassium 3.3 L (3.5-5.1) mmol/L BUN 23 H (9-20) mg/dL Creatinine 1.96 H (0.66-1.25) mg/dL POC Glucose (mg/dL) 121 H 112 H (70-110) mg/dL Calcium 7.5 L (8.4-10.2) mg/dL Alkaline Phosphatase 179 H (38-126) U/L Total Protein 4.3 L (6.3-8.2) g/dL Albumin 1.9 L (3.5-5.0) g/dL 08/13/23 08/13/23 Range/Units 11:47 18:11 Sodium (137-145) mmol/L Potassium (3.5-5.1) mmol/L BUN (9-20) mg/dL Creatinine (0.66-1.25) mg/dL POC Glucose (mg/dL) 115 H 117 H (70-110) mg/dL Calcium (8.4-10.2) mg/dL Alkaline Phosphatase (38-126) U/L Total Protein (6.3-8.2) g/dL Albumin (3.5-5.0) g/dL Microbiology - Last 24 Hours (Table) 08/08/23 20:10 Anaerobic Culture - Final Intestinal Assessment and Plan Assessment: 1. Small bowel obstruction due to adhesion, lower pelvis left lower quadrant 2. Acute renal failure 3. Sigmoid diverticulosis 4. Left lower quadrant abdominal pain improving 5. Internal hernia pelvis 6. Ileus Expected PLAN: -Continue ground diet -Continue pain management -Continue IV Tylenol -Antibiotics per ID service -Continue TPN for nutrition support -Continue Mylicon gas drops Time with Patient: Greater than 30
[2023-08-14 00:09] LABS: Glucose,Whole Blood 135 mg/dL (70-110)
[2023-08-14 06:30] LABS: Glucose,Whole Blood 108 mg/dL (70-110)
[2023-08-14 06:41] LABS: ALT 24 U/L (4-49); AST 51 U/L (17-59); African American GFR (CKD) 29 (>60 ml/min/1.73 sqM); Albumin 1.9 g/dL (3.5-5.0); Alkaline Phosphatase 212 U/L (38-126); Anion Gap 3 mmol/L; Blood Urea Nitrogen 28 mg/dL (9-20); Calcium 7.5 mg/dL (8.4-10.2); Carbon Dioxide 25 mmol/L (22-30); Chloride 102 mmol/L (98-107); Glucose 98 mg/dL (74-99); Non-African American GFR(CKD) 25 (>60 ml/min/1.73 sqM); Potassium 3.8 mmol/L (3.5-5.1); Sodium 130 mmol/L (137-145); Total Bilirubin 0.4 mg/dL (0.2-1.3); Total Protein 4.4 g/dL (6.3-8.2)
[2023-08-14] MEDS: MVI, ADULT NO.4 WITH VIT K 10 ML, TRACE (CONC-1ML/DOSE) 1 ML, POTASSIUM CHLORIDE 40 MEQ... IV SCH (06:47)
[2023-08-14 06:59] LABS: C Reactive Protein 6.5 mg/dL (<1.0); Magnesium 1.6 mg/dL (1.6-2.3); Phosphorus 2.7 mg/dL (2.5-4.5)
[2023-08-14 07:08] LABS: Basophils # (A) 0.1 k/uL (0-0.2); Basophils % (A) 0 %; Eosinophils # (A) 0.3 k/uL (0-0.7); Eosinophils % (A) 3 %; HGB 9.5 gm/dL (13.0-17.5); Lymphocytes % (A) 8 %; MCH 28.4 pg (25.0-35.0); MCHC 31.7 g/dL (31.0-37.0); MCV 89.6 fL (80.0-100.0); Mean Platelet Volume 7.4; Monocytes # (A) 0.8 k/uL (0-1.0); Monocytes % (A) 7 %; Neutrophils # (A) 8.9 k/uL (1.3-7.7); Neutrophils % (A) 78 %; Platelet Count 358 k/uL (150-450); RBC 3.35 m/uL (4.30-5.90); RDW 14.4 % (11.5-15.5); WBC 11.4 k/uL (3.8-10.6)
--- NOTE | 2023-08-14 11:15 | P.PN ---
Subjective Progress Note Date: 08/14/23 Patient is seen for follow-up for acute kidney injury. Was started on hemodialysis on 08/10/2023 due to persistent encephalopathy and no further improvement in renal function.Third treatment of hemodialysis 08/11 now with improved urine output. No acute distress Examination of the heart S1 and S2 Examination of the lungs bilateral breath sounds are heard Abdomen is soft nontender Examination of lower extremities shows no significant edema [employer] exam shows patient is moving all 4 extremities Objective - Vital Signs Vital signs: Vital Signs Temp 98.9 F 08/13/23 19:57 Pulse 103 H 08/14/23 08:21 Resp 18 08/14/23 03:48 BP 159/76 08/14/23 03:48 Pulse Ox 96 08/14/23 08:15 FiO2 Intake & Output 08/13/23 08/14/23 08/14/23 18:59 06:59 18:59 Intake Total 1285 0 Output Total 600 1200 Balance 685 -1200 Weight 83 kg Intake: Intake, IV Titration 1049 Amount Mvi, Adult No.4 with Vit 1049 K 10 ml Trace (Conc-1Ml/ Dose) 1 ml Sodium Acetate 34 meq Potassium Acetate 20 meq Magnesium Sulfate gm 0.5 gm Calcium Gluconate 1 gm In Amino Acids 5 %/Dextrose 20 % 1 ,000 ml @ 48 mls/hr IV . [id number] [facility] Rx#:[id number] Oral 236 0 Output: Urine 600 1200 Other: Voiding Method Indwelling Catheter Indwelling Catheter # Bowel Movements 1 - Labs CBC & Chem 7: 08/14/23 05:39 08/14/23 05:39 Labs: Abnormal Lab Results - Last 24 Hours (Table) 08/13/23 08/13/23 08/13/23 Range/Units 10:31 11:47 18:11 WBC (3.8-10.6) k/uL RBC (4.30-5.90) m/uL Hgb (13.0-17.5) gm/dL Hct (39.0-53.0) % Neutrophils # (1.3-7.7) k/uL Sodium 131 L (137-145) mmol/L Potassium 3.3 L (3.5-5.1) mmol/L BUN 23 H (9-20) mg/dL Creatinine 1.96 H (0.66-1.25) mg/dL POC Glucose (mg/dL) 115 H 117 H (70-110) mg/dL Calcium 7.5 L (8.4-10.2) mg/dL Alkaline Phosphatase 179 H (38-126) U/L C-Reactive Protein (<1.0) mg/dL Total Protein 4.3 L (6.3-8.2) g/dL Albumin 1.9 L (3.5-5.0) g/dL 08/14/23 08/14/23 08/14/23 Range/Units 00:07 05:39 05:39 WBC (3.8-10.6) k/uL RBC (4.30-5.90) m/uL Hgb (13.0-17.5) gm/dL Hct (39.0-53.0) % Neutrophils # (1.3-7.7) k/uL Sodium 130 L (137-145) mmol/L Potassium (3.5-5.1) mmol/L BUN 28 H (9-20) mg/dL Creatinine 2.29 H (0.66-1.25) mg/dL POC Glucose (mg/dL) 135 H (70-110) mg/dL Calcium 7.5 L (8.4-10.2) mg/dL Alkaline Phosphatase 212 H (38-126) U/L C-Reactive Protein 6.5 H (<1.0) mg/dL Total Protein 4.4 L (6.3-8.2) g/dL Albumin 1.9 L (3.5-5.0) g/dL 08/14/23 Range/Units 05:39 WBC 11.4 H (3.8-10.6) k/uL RBC 3.35 L (4.30-5.90) m/uL Hgb 9.5 L (13.0-17.5) gm/dL Hct 30.0 L (39.0-53.0) % Neutrophils # 8.9 H (1.3-7.7) k/uL Sodium (137-145) mmol/L Potassium (3.5-5.1) mmol/L BUN (9-20) mg/dL Creatinine (0.66-1.25) mg/dL POC Glucose (mg/dL) (70-110) mg/dL Calcium (8.4-10.2) mg/dL Alkaline Phosphatase (38-126) U/L C-Reactive Protein (<1.0) mg/dL Total Protein (6.3-8.2) g/dL Albumin (3.5-5.0) g/dL Microbiology - Last 24 Hours (Table) 08/08/23 20:10 Anaerobic Culture - Final Intestinal Assessment and Plan Plan: 1. Acute kidney injury secondary to ATN. nonoliguric. No hydronephrosis noted on CAT scan. UA shows 2+ protein moderate blood and WBCs 54, urine eosinophils negative,all serologies are negative as well. Renal function did not improve further with IV hydration and therefore patient was started on hemodialysis on 08/10/2023. 2. Chronic kidney disease stage IIIb with baseline creatinine 1.3-1.5 secondary to nephrosclerosis. 3. Partial small bowel obstruction. status post robotic-assisted laparoscopic lysis of adhesions and decompressive enterostomy on 08/08/2023. 4. Metabolic acidosis secondary to acute kidney injury and IV fluids. 5. Atrial tachycardia, status post Cardizem drip Plan: Continue IV fluids Hold hemodialysis over the weekend to monitor for recovery of renal function. Continue to avoid nephrotoxic agents.
[2023-08-14 11:42] LABS: Glucose,Whole Blood 105 mg/dL (70-110)
--- NOTE | 2023-08-14 12:07 | P.PN ---
Subjective Progress Note Date: 08/14/23 This is a 83-year-old male patient with a known history of coronary artery disease with previous stent placement, dementia, hypertension, hyperlipidemia, hypothyroidism, non-smoker who presented here to the emergency room on 08/01/2023 with abdominal pain. He had been followed by surgical services. He did have a nasogastric tube which had approximately 2100 cc output once put in. However the patient inadvertently pulled it out last night. Today he had developed increased abdominal discomfort, tachycardia and shortness of breath. We were consulted for possible transfer to the ICU. He is seen today on the regular medical floor. He is awake and alert. He denies any pain at rest. He is tender to palpation. He is tachycardic, sinus. Currently afebrile. Continue O2 saturations in the mid 90s on 3 L/min per nasal cannula. Blood pressure stable. Blood cultures reveal no growth. White count 8.5. Hemoglobin 12.6. Platelets 373. Sodium 139. Potassium 4.6. Bicarb 14. BUN 34. Creatinine 3.11. Glucose 88. Amylase 73. Lipase 49. CT scan of the abdomen today revealed bowel obstruction pattern. Small amount of free fluid. Chest x-ray reveals no acute cardiopulmonary process. A nasogastric tube has been reinserted and in good position. He is currently on Zosyn. Patient was seen and examined today on 08/05/2023, patient is doing much better today compared to the last 2 days, less abdominal pain, no nausea no vomiting, continues to have nasogastric tube in place.WBC count is 9.9 hemoglobin 11.3 basic metabolic profile is normal however his renal functioning is worse with BUN up to 69 creatinine 5.60, and that is being addressed by nephrology on the case. His acute kidney injury is felt to be related to hemodynamic ATN, no hydronephrosis on CT of the abdomen, patient does have history of chronic kidney disease stage IIIb. Patient is on Cardizem drip now for atrial tachycardia. And cardiology is following Reevaluate today on 08/06/23, patient pulled his nasogastric tube yesterday, continues to have abdominal distention and abdominal pain. Apparently multiple attempts by nurses to place the nasogastric tube were unsuccessful. Surgery is to address the nasogastric tube placement and or exploratory laparotomy on this patient to relieve his bowel obstruction.WBC count today is 8.4 hemoglobin 10.4, basic metabolic profile is normal renal profile is worsening with a BUN of 85 creatinine 6.08 and his renal profile is being addressed by nephrology on the case Patient was reevaluated today on 08/07/2023, continues to have abdominal pain, continues to have small bowel obstruction, and now he is developing worsening renal disease. From the looks of it, patient may be heading towards dialysis. Patient was seen by Dr. Truong today, and I believe he is recommending exploratory laparotomy after he is seen by Dr. Goodman tomorrow. Continues to have decent urine output, 600 cc in the last 8 hours. Could not have a nasogastric tube placed back, patient is getting in Progress note dated August 08, 2023. 83-year-old male seen in room 378. The patient is currently on 2 L of oxygen. The patient is getting dextrose with half-normal saline at 100 cc an hour. He does have a significantly tender abdomen, anytime he burps, or coughs. Also, he is tender on palpation. Current labs include a white count 9.5, hemoglobin 11.4, hematocrit 36, and a platelet count of 343,000. Sodium 143, potassium 4.2, chlorides 107, CO2 27, BUN 93, creatinine 5.62. Calcium is 8, with a phosphorus of 5.4. Glucose is 97. Blood cultures are negative. Progress note dated August 09, 2023. 83-year-old male seen today in room 378. The patient is currently on 3 L of oxygen. NG tube remains in place. He is getting D5 with half-normal saline at 100 cc an hour. The patient has significant abdominal pain on palpation of the abdomen. Labs today include a white count 9.3, hemoglobin 10.8, hematocrit 33.9, and a platelet count of 355,000. Sodium 140, potassium 4.4, chlorides 110, CO2 22, BUN 87, and creatinine 5.53. Glucose is 116. Albumin is 2. All microbiologic sampling is thus far negative. Progress note dated August 10, 2023. 83-year-old male seen again in room 378. The patient again pulled out his NG tube. The patient is on room air. The patient is getting TPN at 30 cc an hour. The patient still has significant abdominal discomfort on palpation. I count 10.5, hemoglobin 10.7, hematocrit 33.8, and platelet count is 384,000. Sodium 140, potassium 3.8, chlorides 107, CO2 20, anion gap 13, BUN 92, creatinine 5.60. Glucose is 123. Magnesium 1.9. Phosphorus 5.2. Progress note dated August 11, 2023. 83-year-old male seen today in room 377. Currently, the patient is receiving hemodialysis. He is on room air. The patient is a DO NOT RESUSCITATE patient. He is getting TPN at 48 cc an hour. He continues on Eraxis, and Zosyn. No new laboratory data today as yet, other than a glucose of 106. Chest x-ray from yesterday shows some mild streaky basilar atelectasis. Progress note dated August 12, 2023. 83-year-old male, seen in room 377. Currently, the patient is on room air. The patient is getting TPN at 48 cc an hour. He continues on Eraxis, and meropenem. Current labs include a sodium 133, potassium 3.2, chlorides 102, CO2 24, BUN 37, creatinine 2.53. Glucose is 128. Calcium 7.5. Albumin 1.9. The patient does not appear to be as tender, on palpation of the abdomen, as he has been, on previous days. Progress note dated August 13, 2023. 83-year-old male seen today in room 377. The patient continues on room air. Sa turations are 94%. The rest of his vital signs are relatively stable. The patient continues on TPN at 48 cc an hour, and D5.45, at 100 cc an hour. He also continues on meropenem, and the antifungal, and Eraxis. Current laboratory data includes a sodium 131, potassium 3.3, chlorides 101, CO2 25, BUN 23, creatinine 1.96. Glucose is 115. Albumin is 1.9. Wound cultures were positive for Enterobacter aerogenes, Marybeth albicans, and Enterococcus faecalis. The patient is seen today August 14, 2023 in follow-up on the regular medical floor. He is currently resting in bed. He denies any worsening abdominal pain. He is maintaining O2 saturations in the 90s on room air. He has D5 W and 0.45 normal saline at 100 MLS per hour. He remains on TPN at 40 MLS per hour. Wound cultures were positive for Enterobacter aerogenes, Marybeth albicans, Enterococcus faecalis. White count 11.4. Hemoglobin 9.5. Platelets 358. Sodium 130. Potassium 3.8. Bicarb 25. BUN 28. Creatinine 2.29. Glucose 98. C-reactive protein 6.5. He is continued on meropenem and Eraxis. Continued on bronchodilators. Heparin for DVT prophylaxis. Objective - Vital Signs Vital signs: Vital Signs Temp 98.3 F 08/14/23 08:00 Pulse 98 08/14/23 11:54 Resp 20 08/14/23 08:00 BP 154/79 08/14/23 08:00 Pulse Ox 96 08/14/23 08:15 FiO2 Intake & Output 08/13/23 08/14/23 08/14/23 18:59 06:59 18:59 Intake Total 1285 0 Output Total 600 1200 Balance 685 -1200 Weight 83 kg Intake: Intake, IV Titration 1049 Amount Mvi, Adult No.4 with Vit 1049 K 10 ml Trace (Conc-1Ml/ Dose) 1 ml Sodium Acetate 34 meq Potassium Acetate 20 meq Magnesium Sulfate gm 0.5 gm Calcium Gluconate 1 gm In Amino Acids 5 %/Dextrose 20 % 1 ,000 ml @ 48 mls/hr IV . [id number] [facility] Rx#:[id number] Oral 236 0 Output: Urine 600 1200 Other: Voiding Method Indwelling Catheter Indwelling Catheter Indwelling Catheter # Bowel Movements 1 1 - Exam An 83-year-old male patient, on room air, no acute distress. No respiratory difficulty. HEENT examination is grossly unremarkable. Mucous membranes are moist. No oral lesions. Neck supple. Full range of motion. No adenopathy thyromegaly or neck vein distention. Cardiovascular examination reveals regular rhythm rate. S1-S2 normal. No S3 or S4. No discernible murmur noted. Lungs reveal clear breath sounds. Breath sounds are equal bilaterally. No adventitious lung sounds including wheezes rhonchi or crackles. Abdomen is tender on palpation. No bowel sounds. Extremities are intact. No cyanosis clubbing or edema. Skin is without rash or lesion. Neurologic examination is brief but nonfocal. - Labs CBC & Chem 7: 08/14/23 05:39 08/14/23 05:39 Labs: Abnormal Lab Results - Last 24 Hours (Table) 08/13/23 08/14/23 08/14/23 Range/Units 18:11 00:07 05:39 WBC (3.8-10.6) k/uL RBC (4.30-5.90) m/uL Hgb (13.0-17.5) gm/dL Hct (39.0-53.0) % Neutrophils # (1.3-7.7) k/uL Sodium 130 L (137-145) mmol/L BUN 28 H (9-20) mg/dL Creatinine 2.29 H (0.66-1.25) mg/dL POC Glucose (mg/dL) 117 H 135 H (70-110) mg/dL Calcium 7.5 L (8.4-10.2) mg/dL Alkaline Phosphatase 212 H (38-126) U/L C-Reactive Protein (<1.0) mg/dL Total Protein 4.4 L (6.3-8.2) g/dL Albumin 1.9 L (3.5-5.0) g/dL 08/14/23 08/14/23 Range/Units 05:39 05:39 WBC 11.4 H (3.8-10.6) k/uL RBC 3.35 L (4.30-5.90) m/uL Hgb 9.5 L (13.0-17.5) gm/dL Hct 30.0 L (39.0-53.0) % Neutrophils # 8.9 H (1.3-7.7) k/uL Sodium (137-145) mmol/L BUN (9-20) mg/dL Creatinine (0.66-1.25) mg/dL POC Glucose (mg/dL) (70-110) mg/dL Calcium (8.4-10.2) mg/dL Alkaline Phosphatase (38-126) U/L C-Reactive Protein 6.5 H (<1.0) mg/dL Total Protein (6.3-8.2) g/dL Albumin (3.5-5.0) g/dL Microbiology - Last 24 Hours (Table) 08/08/23 20:10 Anaerobic Culture - Final Intestinal Assessment and Plan Assessment: Abdominal pain in a patient found to have a bowel obstruction and small amount of free fluid currently on meropenem Acute hypoxemic respiratory failure secondary to above, history of COPD but is a lifelong non-smoker recovered and on room air History of coronary disease with previous stent placement Hypertension Hyperlipidemia Hypothyroidism Dementia Lifelong non-smoker Plan: The patient was seen and evaluated Labs and medications reviewed Currently stable and on room air Remains on meropenem and Eraxis Surgical services are following DNR CODE STATUS We will continue to follow I have personally seen and examined the patient, performed the documentation and the assessment and plan as written. Number of minutes spent on the visit: 10.
--- NOTE | 2023-08-14 12:25 | P.PN ---
Subjective Progress Note Date: 08/14/23 Principal diagnosis: Small bowel obstruction Patient remains somewhat confused. He had an episode of dry heaves without vomiting today. Prior to that had been tolerating ground diet. White blood cell count 11.4. Denies pain currently. Objective - Vital Signs Vital signs: Vital Signs Temp 98.3 F 08/14/23 08:00 Pulse 98 08/14/23 11:54 Resp 20 08/14/23 08:00 BP 154/79 08/14/23 08:00 Pulse Ox 96 08/14/23 08:15 FiO2 Intake & Output 08/13/23 08/14/23 08/14/23 18:59 06:59 18:59 Intake Total 1285 0 Output Total 600 1200 Balance 685 -1200 Weight 83 kg Intake: Intake, IV Titration 1049 Amount Mvi, Adult No.4 with Vit 1049 K 10 ml Trace (Conc-1Ml/ Dose) 1 ml Sodium Acetate 34 meq Potassium Acetate 20 meq Magnesium Sulfate gm 0.5 gm Calcium Gluconate 1 gm In Amino Acids 5 %/Dextrose 20 % 1 ,000 ml @ 48 mls/hr IV . [id number] [facility] Rx#:[id number] Oral 236 0 Output: Urine 600 1200 Other: Voiding Method Indwelling Catheter Indwelling Catheter Indwelling Catheter # Bowel Movements 1 1 - Exam Abdomen: Soft, nondistended, incisions clean and dry, nontender - Labs CBC & Chem 7: 08/14/23 05:39 08/14/23 05:39 Labs: Abnormal Lab Results - Last 24 Hours (Table) 08/13/23 08/14/23 08/14/23 Range/Units 18:11 00:07 05:39 WBC (3.8-10.6) k/uL RBC (4.30-5.90) m/uL Hgb (13.0-17.5) gm/dL Hct (39.0-53.0) % Neutrophils # (1.3-7.7) k/uL Sodium 130 L (137-145) mmol/L BUN 28 H (9-20) mg/dL Creatinine 2.29 H (0.66-1.25) mg/dL POC Glucose (mg/dL) 117 H 135 H (70-110) mg/dL Calcium 7.5 L (8.4-10.2) mg/dL Alkaline Phosphatase 212 H (38-126) U/L C-Reactive Protein (<1.0) mg/dL Total Protein 4.4 L (6.3-8.2) g/dL Albumin 1.9 L (3.5-5.0) g/dL 08/14/23 08/14/23 Range/Units 05:39 05:39 WBC 11.4 H (3.8-10.6) k/uL RBC 3.35 L (4.30-5.90) m/uL Hgb 9.5 L (13.0-17.5) gm/dL Hct 30.0 L (39.0-53.0) % Neutrophils # 8.9 H (1.3-7.7) k/uL Sodium (137-145) mmol/L BUN (9-20) mg/dL Creatinine (0.66-1.25) mg/dL POC Glucose (mg/dL) (70-110) mg/dL Calcium (8.4-10.2) mg/dL Alkaline Phosphatase (38-126) U/L C-Reactive Protein 6.5 H (<1.0) mg/dL Total Protein (6.3-8.2) g/dL Albumin (3.5-5.0) g/dL Microbiology - Last 24 Hours (Table) 08/08/23 20:10 Anaerobic Culture - Final Intestinal Assessment and Plan (1) Partial small bowel obstruction Narrative/Plan: 83-year-old male with small bowel obstruction and underwent robotic lysis of adhesions last week. Monitor for recurrent nausea or vomiting. Repeat labs tomorrow. Current Visit: Yes Status: Acute Code(s): K56.600 - PARTIAL INTESTINAL OBSTRUCTION, UNSPECIFIED TO CAUSE SNOMED Code(s): 750642981
[2023-08-14] MEDS: MAGNESIUM SULFATE-D5W PMX 1 GM in DEXTROSE/WATER 1 100ML.BAG IVPB SCH (13:23)
--- NOTE | 2023-08-14 14:57 | P.PN ---
Subjective Progress Note Date: 08/14/23 Principal diagnosis: Reason for follow-up is fever likely abdominal source Patient is a 83-year-old male with a past medical history significant for coronary disease COPD dementia hypertension hyperlipidemia reflux presenting to the hospital for evaluation of abdominal pain bloating has been diagnosed with the distal small bowel obstruction developing a fever concerning for possible abdominal sepsis prompting this consultation.Patient is status post robotic assisted laparoscopic lysis of adhesion extensive and decompressive enterostomy that was completed on 08/08/2023 On today's evaluation that is 08/14/2023, Patient is afebrile patient is currently on room air, patient is more awake and alert today and denies having any shortness of breath, the patient denies any chest pain or cough, the patient denies any nausea vomiting abdominal pain has decreased however did not have any bowel movement. Patient white count is 11.4, creatinine is 2.29 Objective - Vital Signs Vital signs: Vital Signs Temp 99.5 F 08/14/23 12:00 Pulse 96 08/14/23 13:53 Resp 20 08/14/23 13:53 BP 135/67 08/14/23 12:00 Pulse Ox 99 08/14/23 12:00 FiO2 Intake & Output 08/13/23 08/14/23 08/14/23 18:59 06:59 18:59 Intake Total 1285 0 Output Total 600 1200 Balance 685 -1200 Weight 83 kg Intake: Intake, IV Titration 1049 Amount Mvi, Adult No.4 with Vit 1049 K 10 ml Trace (Conc-1Ml/ Dose) 1 ml Sodium Acetate 34 meq Potassium Acetate 20 meq Magnesium Sulfate gm 0.5 gm Calcium Gluconate 1 gm In Amino Acids 5 %/Dextrose 20 % 1 ,000 ml @ 48 mls/hr IV . [id number] [facility] Rx#:[id number] Oral 236 0 Output: Urine 600 1200 Other: Voiding Method Indwelling Catheter Indwelling Catheter Indwelling Catheter # Bowel Movements 1 1 - Exam GENERAL DESCRIPTION: An elderly male up in the chair in no distress RESPIRATORY SYSTEM: Unlabored breathing , decreased breath sounds at bases HEART: S1 S2 regular rate and rhythm , ABDOMEN: Soft , no tenderness EXTREMITIES: No edema feet - Labs CBC & Chem 7: 08/14/23 05:39 08/14/23 05:39 Labs: Abnormal Lab Results - Last 24 Hours (Table) 0408/14/23 08/14/23 Range/Units 18:11 00:07 05:39 WBC (3.8-10.6) k/uL RBC (4.30-5.90) m/uL Hgb (13.0-17.5) gm/dL Hct (39.0-53.0) % Neutrophils # (1.3-7.7) k/uL Sodium 130 L (137-145) mmol/L BUN 28 H (9-20) mg/dL Creatinine 2.29 H (0.66-1.25) mg/dL POC Glucose (mg/dL) 117 H 135 H (70-110) mg/dL Calcium 7.5 L (8.4-10.2) mg/dL Alkaline Phosphatase 212 H (38-126) U/L C-Reactive Protein (<1.0) mg/dL Total Protein 4.4 L (6.3-8.2) g/dL Albumin 1.9 L (3.5-5.0) g/dL 08/14/23 08/14/23 Range/Units 05:39 05:39 WBC 11.4 H (3.8-10.6) k/uL RBC 3.35 L (4.30-5.90) m/uL Hgb 9.5 L (13.0-17.5) gm/dL Hct 30.0 L (39.0-53.0) % Neutrophils # 8.9 H (1.3-7.7) k/uL Sodium (137-145) mmol/L BUN (9-20) mg/dL Creatinine (0.66-1.25) mg/dL POC Glucose (mg/dL) (70-110) mg/dL Calcium (8.4-10.2) mg/dL Alkaline Phosphatase (38-126) U/L C-Reactive Protein 6.5 H (<1.0) mg/dL Total Protein (6.3-8.2) g/dL Albumin (3.5-5.0) g/dL Microbiology - Last 24 Hours (Table) 08/08/23 20:10 Anaerobic Culture - Final Intestinal Assessment and Plan (1) Fever Current Visit: Yes Status: Acute Code(s): R50.9 - FEVER, UNSPECIFIED SNOMED Code(s): 070042631 (2) Leukocytosis Current Visit: Yes Status: Acute Code(s): D72.829 - ELEVATED WHITE BLOOD CELL COUNT, UNSPECIFIED SNOMED Code(s): 149115283 (3) Small bowel obstruction Current Visit: Yes Status: Acute Code(s): K56.609 - UNSP INTESTNL OBST, UNSP TO PARTIAL VERSUS COMPLETE OBST SNOMED Code(s): 638520480 (4) Peritonitis Current Visit: Yes Status: Acute Code(s): K65.9 - PERITONITIS, UNSPECIFIED SNOMED Code(s): 71478029 Plan: 1patient with low-grade fever elevated white count and this patient presented to hospital with abdominal pain and bloating and has been diagnosed with the small bowel obstruction likely etiology for his low-grade fever and elevated white count, the patient is status post laparoscopic lysis of adhesion and enterostomy abdominal cultures obtained which are currently growing Enterococcus drug-resistant Enterobacter and Marybeth 2-patient is afebrile, CBC of 11.1 3-patient to continue with meropenem along with Eraxis and monitor clinical course closely Dictation was produced using [employer] dictation software. please excuse any grammatical, word or spelling errors. Time with Patient: Less than 30
[2023-08-14] MEDS ORDERED: ZINC OXIDE PASTE (Z-GUARD) 1 APPLIC TOPICAL PRN (15:40)
--- NOTE | 2023-08-14 16:28 | P.PN ---
Subjective Progress Note Date: 08/14/23 Progress note Date of service 08/14/[address] Griffin Patient seen and evaluated at bedside and discussed with her as nurse Lynne. Patient is sleepy, comfortable, no labored breathing, no complaint of pain however with examination of the abdomen he is tender in the lower quadrant, bowel sounds present, has 2 bowel movement, there is a grimacing with palpation over the lower abdomen. Is vital sign: Temperature ranging between 99.5 F oral and 98.4 F oral. Heart rate between 96 and 100, respiratory rate 20/min nonlabored Blood pressure 153/73 with them mean 99 mmHg, room air oxygen saturation 96%. Patient seen by infectious disease, pulmonary, and surgery Dr. Wilcox covering for Dr. Pinzon. On the physical exam: Patient sleepy no complaint except with palpation of the abdomen with distention and still with ileus. Head was normocephalic atraumatic natural teas no changes Neck was supple no JVD no thyromegaly no lymphadenopathy trachea midline Chest increased anteroposterior diameter with a history of asthma or COPD currently stable no exacerbation. Heart: Normal sinus rhythm with the compensated heart and tachycardia intermittently. Abdomen still distended, tender tympanitic mostly in the lower abdomen with grimacing with palpation. Extremities: He had a thrombotic stocking also he had heparin subcu as well as no edema and positive pulses. Neurologically stable no new events Patient had Dow catheter, central line on the right side subclavian, he had PICC line and he is on IV nutritional support with Intralipid and TPN. Laboratories: Chemistry C-reactive protein 6.5, alkaline phosphatase is progressively increasing 212 with the start of 96 and progressively elevated. Creatinine 2.29 was yesterday 1.96, nonoliguric with the urine output Phosphorus 2.7, magnesium 1.6 total bilirubin 0.4 AST 51 and ALT 24, total protein 4.4 and albumin 1.9, patient receiving Intralipid and TPN., Calcium 7.5 Ionized calcium has been checked in the past and was normal, albumin 1.9 with the nutritional support. Sodium 130, potassium 3.8. WBC 11.4, yesterday 10.5 and the day before was 9.3, mild elevation Hemoglobin 9.5 and hematocrit 30, platelet count 358. Assessment: 1. Small bowel obstruction with adhesion 2. Status post robotic laparoscopic lysis of the adhesion 3. Postoperative ileus with the abdominal pain persistent and abdominal distention tympanitic 4. Acute kidney injury with the history of chronic kidney disease stage III currently On hemodialysis with dialysis catheter in the right subclavian vascular surgeon Nonoliguric renal failure possibility with ATN and hypotension with the association with nephrosclerosis 5. Shortness of breath associated with COPD history of asthma followed by pulmonary 6. Intra-abdominal sepsis with the leukocytosis and followed by Dr. Simmons infectious disease 7. Sinus tachycardia followed by [facility]. 8. Dr. Cook saw the patient today covering for Dr. Pinzon 9. Low back pain with the discogenic disease and spinal stenosis in the L4-L5. Plan: Currently patient has been followed and no added medicine today and he has lab for tomorrow or possible dialysis if needed per nephrology. Will continue current treatment Will follow recommendation of surgical team, pulmonary, cardiology, infectious disease, and nephrology Objective - Vital Signs Vital signs: Vital Signs Temp 98.4 F 08/14/23 15:43 Pulse 100 08/14/23 15:43 Resp 20 08/14/23 15:43 BP 153/73 08/14/23 15:43 Pulse Ox 96 08/14/23 15:43 FiO2 Intake & Output 08/13/23 08/14/23 08/14/23 18:59 06:59 18:59 Intake Total 1285 0 Output Total 600 1200 Balance 685 -1200 Weight 83 kg Intake: Intake, IV Titration 1049 Amount Mvi, Adult No.4 with Vit 1049 K 10 ml Trace (Conc-1Ml/ Dose) 1 ml Sodium Acetate 34 meq Potassium Acetate 20 meq Magnesium Sulfate gm 0.5 gm Calcium Gluconate 1 gm In Amino Acids 5 %/Dextrose 20 % 1 ,000 ml @ 48 mls/hr IV . [id number] [facility] Rx#:[id number] Oral 236 0 Output: Urine 600 1200 Other: Voiding Method Indwelling Catheter Indwelling Catheter Indwelling Catheter # Bowel Movements 1 1 - Labs CBC & Chem 7: 08/14/23 05:39 08/14/23 05:39 Labs: Abnormal Lab Results - Last 24 Hours (Table) 08/13/23 08/14/23 08/14/23 Range/Units 18:11 00:07 05:39 WBC (3.8-10.6) k/uL RBC (4.30-5.90) m/uL Hgb (13.0-17.5) gm/dL Hct (39.0-53.0) % Neutrophils # (1.3-7.7) k/uL Sodium 130 L (137-145) mmol/L BUN 28 H (9-20) mg/dL Creatinine 2.29 H (0.66-1.25) mg/dL POC Glucose (mg/dL) 117 H 135 H (70-110) mg/dL Calcium 7.5 L (8.4-10.2) mg/dL Alkaline Phosphatase 212 H (38-126) U/L C-Reactive Protein (<1.0) mg/dL Total Protein 4.4 L (6.3-8.2) g/dL Albumin 1.9 L (3.5-5.0) g/dL 08/14/23 08/14/23 Range/Units 05:39 05:39 WBC 11.4 H (3.8-10.6) k/uL RBC 3.35 L (4.30-5.90) m/uL Hgb 9.5 L (13.0-17.5) gm/dL Hct 30.0 L (39.0-53.0) % Neutrophils # 8.9 H (1.3-7.7) k/uL Sodium (137-145) mmol/L BUN (9-20) mg/dL Creatinine (0.66-1.25) mg/dL POC Glucose (mg/dL) (70-110) mg/dL Calcium (8.4-10.2) mg/dL Alkaline Phosphatase (38-126) U/L C-Reactive Protein 6.5 H (<1.0) mg/dL Total Protein (6.3-8.2) g/dL Albumin (3.5-5.0) g/dL Microbiology - Last 24 Hours (Table) 08/08/23 20:10 Anaerobic Culture - Final Intestinal
[2023-08-14 17:48] LABS: Glucose,Whole Blood 124 mg/dL (70-110)
[2023-08-15 00:48] LABS: Glucose,Whole Blood 104 mg/dL (70-110)
[2023-08-15 06:03] LABS: Glucose,Whole Blood 117 mg/dL (70-110)
[2023-08-15 09:25] LABS: Basophils # (A) 0.1 k/uL (0-0.2); Basophils % (A) 0 %; Eosinophils # (A) 0.4 k/uL (0-0.7); Eosinophils % (A) 3 %; HGB 9.1 gm/dL (13.0-17.5); Lymphocytes % (A) 7 %; MCH 28.5 pg (25.0-35.0); MCHC 31.5 g/dL (31.0-37.0); MCV 90.5 fL (80.0-100.0); Mean Platelet Volume 7.5; Monocytes # (A) 1.1 k/uL (0-1.0); Monocytes % (A) 8 %; Neutrophils # (A) 11.1 k/uL (1.3-7.7); Neutrophils % (A) 80 %; Platelet Count 453 k/uL (150-450); RDW 14.4 % (11.5-15.5); WBC 13.9 k/uL (3.8-10.6)
[2023-08-15 09:30] LABS: African American GFR (CKD) 25 (>60 ml/min/1.73 sqM); Anion Gap 5 mmol/L; Blood Urea Nitrogen 32 mg/dL (9-20); Calcium 7.7 mg/dL (8.4-10.2); Carbon Dioxide 22 mmol/L (22-30); Chloride 103 mmol/L (98-107); Glucose 104 mg/dL (74-99); Magnesium 2.1 mg/dL (1.6-2.3); Non-African American GFR(CKD) 22 (>60 ml/min/1.73 sqM); Phosphorus 3.8 mg/dL (2.5-4.5); Potassium 4.4 mmol/L (3.5-5.1); Sodium 130 mmol/L (137-145)
[2023-08-15 12:05] LABS: Glucose,Whole Blood 170 mg/dL (70-110)
--- NOTE | 2023-08-15 12:06 | P.PN ---
Subjective Patient is seen in follow-up for acute kidney injury on chronic kidney disease, currently hemodialysis dependent. Receiving TPN. On 2 L nasal cannula. Hemodynamically stable. Last dialysis August 12, 2023. Vital signs are stable. General: No acute distress. HEENT: Head exam is unremarkable. LUNGS: No audible rhonchi or wheezes. HEART: Rate and Rhythm are regular. ABDOMEN: Tender to touch. EXTREMITITES: No edema. Objective - Vital Signs Vital signs: Vital Signs Temp 98.1 F 08/15/23 08:00 Pulse 88 08/15/23 11:47 Resp 18 08/15/23 11:47 BP 133/66 08/15/23 08:00 Pulse Ox 98 08/15/23 08:00 FiO2 Intake & Output 08/14/23 08/15/23 08/15/23 18:59 06:59 18:59 Intake Total 240 963.2 480 Output Total 500 Balance 240 463.2 480 Weight 79.5 kg Intake: Intake, IV Titration 963.2 Amount Mvi, Adult No.4 with Vit 963.2 K 10 ml Trace (Conc-1Ml/ Dose) 1 ml Potassium Chloride 40 meq Magnesium Sulfate gm 1 gm In Amino Acid 5%-D20w+Lytes*E* 1, 000 ml @ 48 mls/hr IV . [id number] [facility] Rx#:[id number] Oral 240 480 Output: Urine 500 Other: Voiding Method Indwelling Catheter Indwelling Catheter Indwelling Catheter # Bowel Movements 1 1 - Labs CBC & Chem 7: 08/15/23 08:16 08/15/23 08:16 Labs: Abnormal Lab Results - Last 24 Hours (Table) 08/14/23 08/15/23 08/15/23 Range/Units 17:46 06:02 08:16 WBC 13.9 H (3.8-10.6) k/uL RBC 3.20 L (4.30-5.90) m/uL Hgb 9.1 L (13.0-17.5) gm/dL Hct 29.0 L (39.0-53.0) % Plt Count 453 H (150-450) k/uL Neutrophils # 11.1 H (1.3-7.7) k/uL Monocytes # 1.1 H (0-1.0) k/uL Sodium (137-145) mmol/L BUN (9-20) mg/dL Creatinine (0.66-1.25) mg/dL Glucose (74-99) mg/dL POC Glucose (mg/dL) 124 H 117 H (70-110) mg/dL Calcium (8.4-10.2) mg/dL 08/15/23 Range/Units 08:16 WBC (3.8-10.6) k/uL RBC (4.30-5.90) m/uL Hgb (13.0-17.5) gm/dL Hct (39.0-53.0) % Plt Count (150-450) k/uL Neutrophils # (1.3-7.7) k/uL Monocytes # (0-1.0) k/uL Sodium 130 L (137-145) mmol/L BUN 32 H (9-20) mg/dL Creatinine 2.60 H (0.66-1.25) mg/dL Glucose 104 H (74-99) mg/dL POC Glucose (mg/dL) (70-110) mg/dL Calcium 7.7 L (8.4-10.2) mg/dL Assessment and Plan Plan: Assessment: 1. Acute kidney injury secondary to hemodynamic ATN. No hydronephrosis noted on CAT scan. Started on hemodialysis August 10, 2023. Last dialysis August 12, 2023. Creatinine today 2.6. Nonoliguric. 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 2. Chronic kidney disease stage IIIb with baseline creatinine 1.3-1.5 secondary to nephrosclerosis. 3. Partial small bowel obstruction. Receiving TPN. Surgery following. 4. Metabolic acidosis secondary to acute kidney injury and IV fluids. 5. Atrial tachycardia status post Cardizem drip. On metoprolol. Cardiology following. 6. Anemia. Rule out iron deficiency. Plan: Maintain TPN. Avoid nephrotoxins. Hold off on hemodialysis. Continue to assess on daily basis. Continue to monitor renal function and urine output. Maintain Dow catheter. Check kappa and lambda free light chains. Consult hematology/oncology to rule out myeloma. Check iron studies.
--- NOTE | 2023-08-15 14:17 | P.PN ---
Subjective Progress Note Date: 08/15/23 Progress note [address]ation by Dr. Griffin Date of service 08/15/2023 Patient seen and evaluated today at bedside Patient sleepy comfortable breathing still abdominal distention and tender Byas percussion with the degree massing. Patient seen by Dr. Dee nephrology no expected dialysis today. In regard to office ileus, postoperative with the underlying history of small bowel obstruction secondary to adhesion, underwent robotic laparoscopic lysis of adhesions still have pain in the abdomen with palpation. Patient exam Temperature 98.4 F oral heart rate 98/min respiratory rate 18-16/min and blood pressure 135/71 with a mean 92, on room air oxygen saturation 98%. On exam head and neck no changes Neck was supple no JVD no thyromegaly no lymphadenopathy trachea midline. Chest is clear was normal breath sounds no wheezes no rhonchi's Heart regular sinus rhythm occasional episodes of tachycardia Abdomen protuberant, with high bowel sounds, tenderness on palpation of the lower quadrant, bowel movement is minimal Patient on TPN with intralipids clear liquid diet however patient is not eating. Extremities he has 1+ pitting edema probably associated with hypoproteinemia and hypoalbuminemia. Neurologically stable no new events Assessment: 1. Patient is still critical with very slow improvement or progress. 2. Laboratory: WBC 11.4 today is 13.9 continue to rise., Hemoglobin was 9.5 today 9.1 with the drop in the hematocrit from 30-29. Sodium 130 potassium 4.4 chloride 103 carbon dioxide 22, BUN 32, creatinine 2.6, glucose 104 magnesium 2.1 phosphorus 3.8. 3. Postoperative ileus with tympanitic abdomen and tender 4. Small bowel obstruction underwent robotic laparoscopic surgery with lysis of adhesion. 5. Sinus tachycardia has been controlled 6. Acute kidney injury currently underwent hemodialysis followed by Dr. Alejandro this week and no hemodialysis scheduled.. 7. Investigation by Dr. Dee and regarding of kappa and lambda. Plan: Will order stool for Hemoccult x 3 when he had a bowel movement Also prealbumin. Patient followed by infectious disease Dr. Simmons Patient followed by Dr. Pinzon surgeon Patient followed by pulmonary and critical care Patient followed by cardiology. Patient followed by nephrology as well Objective - Vital Signs Vital signs: Vital Signs Temp 98.4 F 08/15/23 12:00 Pulse 98 04/08/24 12:23 Resp 16 08/15/23 12:00 BP 135/71 08/15/23 12:00 Pulse Ox 98 08/15/23 12:00 FiO2 Intake & Output 08/14/23 08/15/23 08/15/23 18:59 06:59 18:59 Intake Total 240 963.2 480 Output Total 500 Balance 240 463.2 480 Weight 79.5 kg Intake: Intake, IV Titration 963.2 Amount Mvi, Adult No.4 with Vit 963.2 K 10 ml Trace (Conc-1Ml/ Dose) 1 ml Potassium Chloride 40 meq Magnesium Sulfate gm 1 gm In Amino Acid 5%-D20w+Lytes*E* 1, 000 ml @ 48 mls/hr IV . [id number] [facility] Rx#:[id number] Oral 240 480 Output: Urine 500 Other: Voiding Method Indwelling Catheter Indwelling Catheter Indwelling Catheter # Bowel Movements 1 1 - Labs CBC & Chem 7: 08/15/23 08:16 08/15/23 08:16 Labs: Abnormal Lab Results - Last 24 Hours (Table) 08/14/23 08/15/23 08/15/23 Range/Units 17:46 06:02 08:16 WBC 13.9 H (3.8-10.6) k/uL RBC 3.20 L (4.30-5.90) m/uL Hgb 9.1 L (13.0-17.5) gm/dL Hct 29.0 L (39.0-53.0) % Plt Count 453 H (150-450) k/uL Neutrophils # 11.1 H (1.3-7.7) k/uL Monocytes # 1.1 H (0-1.0) k/uL Sodium (137-145) mmol/L BUN (9-20) mg/dL Creatinine (0.66-1.25) mg/dL Glucose (74-99) mg/dL POC Glucose (mg/dL) 124 H 117 H (70-110) mg/dL Calcium (8.4-10.2) mg/dL 08/15/23 08/15/23 Range/Units 08:16 12:03 WBC (3.8-10.6) k/uL RBC (4.30-5.90) m/uL Hgb (13.0-17.5) gm/dL Hct (39.0-53.0) % Plt Count (150-450) k/uL Neutrophils # (1.3-7.7) k/uL Monocytes # (0-1.0) k/uL Sodium 130 L (137-145) mmol/L BUN 32 H (9-20) mg/dL Creatinine 2.60 H (0.66-1.25) mg/dL Glucose 104 H (74-99) mg/dL POC Glucose (mg/dL) 170 H (70-110) mg/dL Calcium 7.7 L (8.4-10.2) mg/dL
--- NOTE | 2023-08-15 16:05 | P.PN ---
Subjective Progress Note Date: 08/15/23 CHIEF COMPLAINT: Abdominal pain HISTORY OF PRESENT ILLNESS: Patient with small bowel obstruction status post robotic assisted laparoscopic lysis of adhesions and decompressive enterostomy, POD#7. Patient reports decreased appetite. Denies any nausea or vomiting. He is having flatus and bowel movements. Continues to complain of abdominal discomfort. Afebrile. WBC 13.9 Hgb 9.1 sodium is 130 creatinine 2.60 PHYSICAL EXAM: VITAL SIGNS: Reviewed GENERAL: Well-developed in no acute distress. HEENT: No sclera icterus. Extraocular movements grossly intact. Moist buccal mucosa. Head is atraumatic, normocephalic. Hears conversational speech. No nasal drainage. NECK: Supple without lymphadenopathy. CHEST: Non-labored respirations and equal bilateral excursions. CARDIOVASCULAR: Palpable 2+ radial pulses. ABDOMEN: Mildly Distended. tenderness palpation of lower abdomen. Incisional dressings clean dry and intact MUSCULOSKELETAL: No clubbing or cyanosis. NEUROLOGIC: No focal or lateralizing signs. Cranial nerves II through XII grossly intact. PSYCH: Appropriate affect. Alert and oriented to person, place and time. SKIN: Well perfused. Good skin turgor. ASSESSMENT: 1. Small bowel obstruction due to adhesion, lower pelvis left lower quadrant 2. Acute renal failure 3. Sigmoid diverticulosis 4. Left lower quadrant abdominal pain 5. Internal hernia pelvis 6. Ileus Expected PLAN: -Abdominal x-ray ordered -Continue ground diet -Continue TPN until oral intake improves -Encourage patient to increase activity level -Continue pain management -Continue Mylicon gas drops -Change oral Tylenol to scheduled Physician Clothes Ironer note has been reviewed by physician. Signing provider agrees with the documented findings, assessment, and plan of care. Objective - Vital Signs Vital signs: Vital Signs Temp 98.4 F 08/15/23 12:00 Pulse 98 08/15/23 12:23 Resp 16 08/15/23 12:00 BP 135/71 08/15/23 12:00 Pulse Ox 98 08/15/23 12:00 FiO2 Intake & Output 08/14/23 08/15/23 08/15/23 18:59 06:59 18:59 Intake Total 240 963.2 480 Output Total 500 700 Balance 240 463.2 -220 Weight 79.5 kg 79.5 kg Intake: Intake, IV Titration 963.2 Amount Mvi, Adult No.4 with Vit 963.2 K 10 ml Trace (Conc-1Ml/ Dose) 1 ml Potassium Chloride 40 meq Magnesium Sulfate gm 1 gm In Amino Acid 5%-D20w+Lytes*E* 1, 000 ml @ 48 mls/hr IV . [id number] [facility] Rx#:[id number] Oral 240 480 Output: Urine 500 700 Other: Voiding Method Indwelling Catheter Indwelling Catheter Indwelling Catheter # Bowel Movements 1 1 - Labs CBC & Chem 7: 08/15/23 08:16 08/15/23 08:16 Labs: Abnormal Lab Results - Last 24 Hours (Table) 08/14/23 08/15/23 08/15/23 Range/Units 17:46 06:02 08:16 WBC 13.9 H (3.8-10.6) k/uL RBC 3.20 L (4.30-5.90) m/uL Hgb 9.1 L (13.0-17.5) gm/dL Hct 29.0 L (39.0-53.0) % Plt Count 453 H (150-450) k/uL Neutrophils # 11.1 H (1.3-7.7) k/uL Monocytes # 1.1 H (0-1.0) k/uL Sodium (137-145) mmol/L BUN (9-20) mg/dL Creatinine (0.66-1.25) mg/dL Glucose (74-99) mg/dL POC Glucose (mg/dL) 124 H 117 H (70-110) mg/dL Calcium (8.4-10.2) mg/dL 08/15/23 08/15/23 Range/Units 08:16 12:03 WBC (3.8-10.6) k/uL RBC (4.30-5.90) m/uL Hgb (13.0-17.5) gm/dL Hct (39.0-53.0) % Plt Count (150-450) k/uL Neutrophils # (1.3-7.7) k/uL Monocytes # (0-1.0) k/uL Sodium 130 L (137-145) mmol/L BUN 32 H (9-20) mg/dL Creatinine 2.60 H (0.66-1.25) mg/dL Glucose 104 H (74-99) mg/dL POC Glucose (mg/dL) 170 H (70-110) mg/dL Calcium 7.7 L (8.4-10.2) mg/dL
[2023-08-15] MEDS: ACETAMINOPHEN TAB 500 MG TAB PO SCH (16:31)
--- NOTE | 2023-08-15 16:53 | P.PN ---
Subjective Progress Note Date: 08/15/23 This is a 83-year-old male patient with a known history of coronary artery disease with previous stent placement, dementia, hypertension, hyperlipidemia, hypothyroidism, non-smoker who presented here to the emergency room on 08/01/2023 with abdominal pain. He had been followed by surgical services. He did have a nasogastric tube which had approximately 2100 cc output once put in. However the patient inadvertently pulled it out last night. Today he had developed increased abdominal discomfort, tachycardia and shortness of breath. We were consulted for possible transfer to the ICU. He is seen today on the regular medical floor. He is awake and alert. He denies any pain at rest. He is tender to palpation. He is tachycardic, sinus. Currently afebrile. Continue O2 saturations in the mid 90s on 3 L/min per nasal cannula. Blood pressure stable. Blood cultures reveal no growth. White count 8.5. Hemoglobin 12.6. Platelets 373. Sodium 139. Potassium 4.6. Bicarb 14. BUN 34. Creatinine 3.11. Glucose 88. Amylase 73. Lipase 49. CT scan of the abdomen today revealed bowel obstruction pattern. Small amount of free fluid. Chest x-ray reveals no acute cardiopulmonary process. A nasogastric tube has been reinserted and in good position. He is currently on Zosyn. Patient was seen and examined today on 08/05/2023, patient is doing much better today compared to the last 2 days, less abdominal pain, no nausea no vomiting, continues to have nasogastric tube in place.WBC count is 9.9 hemoglobin 11.3 basic metabolic profile is normal however his renal functioning is worse with BUN up to 69 creatinine 5.60, and that is being addressed by nephrology on the case. His acute kidney injury is felt to be related to hemodynamic ATN, no hydronephrosis on CT of the abdomen, patient does have history of chronic kidney disease stage IIIb. Patient is on Cardizem drip now for atrial tachycardia. And cardiology is following Reevaluate today on 08/06/23, patient pulled his nasogastric tube yesterday, continues to have abdominal distention and abdominal pain. Apparently multiple attempts by nurses to place the nasogastric tube were unsuccessful. Surgery is to address the nasogastric tube placement and or exploratory laparotomy on this patient to relieve his bowel obstruction.WBC count today is 8.4 hemoglobin 10.4, basic metabolic profile is normal renal profile is worsening with a BUN of 85 creatinine 6.08 and his renal profile is being addressed by nephrology on the case Patient was reevaluated today on 08/07/2023, continues to have abdominal pain, continues to have small bowel obstruction, and now he is developing worsening renal disease. From the looks of it, patient may be heading towards dialysis. Patient was seen by Dr. Truong today, and I believe he is recommending exploratory laparotomy after he is seen by Dr. Goodman tomorrow. Continues to have decent urine output, 600 cc in the last 8 hours. Could not have a nasogastric tube placed back, patient is getting in Progress note dated August 08, 2023. 83-year-old male seen in room 378. The patient is currently on 2 L of oxygen. The patient is getting dextrose with half-normal saline at 100 cc an hour. He does have a significantly tender abdomen, anytime he burps, or coughs. Also, he is tender on palpation. Current labs include a white count 9.5, hemoglobin 11.4, hematocrit 36, and a platelet count of 343,000. Sodium 143, potassium 4.2, chlorides 107, CO2 27, BUN 93, creatinine 5.62. Calcium is 8, with a phosphorus of 5.4. Glucose is 97. Blood cultures are negative. Progress note dated August 09, 2023. 83-year-old male seen today in room 378. The patient is currently on 3 L of oxygen. NG tube remains in place. He is getting D5 with half-normal saline at 100 cc an hour. The patient has significant abdominal pain on palpation of the abdomen. Labs today include a white count 9.3, hemoglobin 10.8, hematocrit 33.9, and a platelet count of 355,000. Sodium 140, potassium 4.4, chlorides 110, CO2 22, BUN 87, and creatinine 5.53. Glucose is 116. Albumin is 2. All microbiologic sampling is thus far negative. Progress note dated August 10, 2023. 83-year-old male seen again in room 378. The patient again pulled out his NG tube. The patient is on room air. The patient is getting TPN at 30 cc an hour. The patient still has significant abdominal discomfort on palpation. I count 10.5, hemoglobin 10.7, hematocrit 33.8, and platelet count is 384,000. Sodium 140, potassium 3.8, chlorides 107, CO2 20, anion gap 13, BUN 92, creatinine 5.60. Glucose is 123. Magnesium 1.9. Phosphorus 5.2. Progress note dated August 11, 2023. 83-year-old male seen today in room 377. Currently, the patient is receiving hemodialysis. He is on room air. The patient is a DO NOT RESUSCITATE patient. He is getting TPN at 48 cc an hour. He continues on Eraxis, and Zosyn. No new laboratory data today as yet, other than a glucose of 106. Chest x-ray from yesterday shows some mild streaky basilar atelectasis. Progress note dated August 12, 2023. 83-year-old male, seen in room 377. Currently, the patient is on room air. The patient is getting TPN at 48 cc an hour. He continues on Eraxis, and meropenem. Current labs include a sodium 133, potassium 3.2, chlorides 102, CO2 24, BUN 37, creatinine 2.53. Glucose is 128. Calcium 7.5. Albumin 1.9. The patient does not appear to be as tender, on palpation of the abdomen, as he has been, on previous days. Progress note dated August 13, 2023. 83-year-old male seen today in room 377. The patient continues on room air. S aturations are 94%. The rest of his vital signs are relatively stable. The patient continues on TPN at 48 cc an hour, and D5.45, at 100 cc an hour. He also continues on meropenem, and the antifungal, and Eraxis. Current laboratory data includes a sodium 131, potassium 3.3, chlorides 101, CO2 25, BUN 23, creatinine 1.96. Glucose is 115. Albumin is 1.9. Wound cultures were positive for Enterobacter aerogenes, Marybeth albicans, and Enterococcus faecalis. The patient is seen today August 14, 2023 in follow-up on the regular medical floor. He is currently resting in bed. He denies any worsening abdominal pain. He is maintaining O2 saturations in the 90s on room air. He has D5 W and 0.45 normal saline at 100 MLS per hour. He remains on TPN at 40 MLS per hour. Wound cultures were positive for Enterobacter aerogenes, Marybeth albicans, Enterococcus faecalis. White count 11.4. Hemoglobin 9.5. Platelets 358. Sodium 130. Potassium 3.8. Bicarb 25. BUN 28. Creatinine 2.29. Glucose 98. C-reactive protein 6.5. He is continued on meropenem and Eraxis. Continued on bronchodilators. Heparin for DVT prophylaxis. On today's evaluation of 08/15/2023, the patient is being seen for a follow-up. The patient had a complicated bowel obstruction with left lower quadrant pain. The patient underwent a robotic laparoscopic lysis of adhesions and decompression enterostomy. Intraoperatively, the patient was found to have severe sigmoid diverticulosis without diverticulitis. There was severe small bowel diverticulosis involving the jejunum and there was volvulus in the right lower quadrant that was reduced. There was mesenteric adhesions and multiple pelvic adhesions involving the sigmoid colon that was released. Decompression of the bowel was done. Intra-abdominal cultures turned out to be positive for Enterobacter and Enterococcus faecium. As such, the patient could have had a component of peritonitis. The patient is currently on broad-spectrum antibiotics. The patient is currently on a combination of meropenem and Eraxis. The patient is also on TPN for nutritional support. He is resting comfortably in bed. No signs of any respiratory distress. On 2 L of oxygen by nasal cannula with a pulse ox of 98%. The blood work shows a WBC count 13.9 with a hemoglobin 9.1 and a platelet count of 453. BUN is at 32 with a creatinine of 2.6 and the patient been seen by nephrology. The patient is undergoing dialysis and last dialysis was done on 08/12/2023 and a dialysis currently on hold and the renal function is being monitored very closely. Dow catheter is in place. Objective - Vital Signs Vital signs: Vital Signs Temp 98.1 F 08/15/23 08:00 Pulse 88 08/15/23 11:47 Resp 18 08/15/23 11:47 BP 133/66 08/15/23 08:00 Pulse Ox 98 08/15/23 08:00 FiO2 Intake & Output 08/14/23 08/15/23 08/15/23 18:59 06:59 18:59 Intake Total 240 963.2 480 Output Total 500 Balance 240 463.2 480 Weight 79.5 kg Intake: Intake, IV Titration 963.2 Amount Mvi, Adult No.4 with Vit 963.2 K 10 ml Trace (Conc-1Ml/ Dose) 1 ml Potassium Chloride 40 meq Magnesium Sulfate gm 1 gm In Amino Acid 5%-D20w+Lytes*E* 1, 000 ml @ 48 mls/hr IV . [id number] [facility] Rx#:[id number] Oral 240 480 Output: Urine 500 Other: Voiding Method Indwelling Catheter Indwelling Catheter Indwelling Catheter # Bowel Movements 1 1 - Exam An 83-year-old male patient, on room air, no acute distress. No respiratory difficulty. The patient is currently on 2 L of oxygen by nasal cannula. HEENT examination is grossly unremarkable. Mucous membranes are moist. No oral lesions. Neck supple. Full range of motion. No adenopathy thyromegaly or neck vein distention. Cardiovascular examination reveals regular rhythm rate. S1-S2 normal. No S3 or S4. No discernible murmur noted. Lungs reveal clear breath sounds. Breath sounds are equal bilaterally. No adventitious lung sounds including wheezes rhonchi or crackles. Abdomen is tender on palpation. No bowel sounds. Hypoactive bowel sounds. Surgical wound site are all dry clean and intact. Extremities are intact. No cyanosis clubbing or edema. Skin is without rash or lesion. Neurologic examination is brief but nonfocal. - Labs CBC & Chem 7: 08/15/23 08:16 08/15/23 08:16 Labs: Abnormal Lab Results - Last 24 Hours (Table) 08/14/23 08/15/23 08/15/23 Range/Units 17:46 06:02 08:16 WBC 13.9 H (3.8-10.6) k/uL RBC 3.20 L (4.30-5.90) m/uL Hgb 9.1 L (13.0-17.5) gm/dL Hct 29.0 L (39.0-53.0) % Plt Count 453 H (150-450) k/uL Neutrophils # 11.1 H (1.3-7.7) k/uL Monocytes # 1.1 H (0-1.0) k/uL Sodium (137-145) mmol/L BUN (9-20) mg/dL Creatinine (0.66-1.25) mg/dL Glucose (74-99) mg/dL POC Glucose (mg/dL) 124 H 117 H (70-110) mg/dL Calcium (8.4-10.2) mg/dL 08/15/23 08/15/23 Range/Units 08:16 12:03 WBC (3.8-10.6) k/uL RBC (4.30-5.90) m/uL Hgb (13.0-17.5) gm/dL Hct (39.0-53.0) % Plt Count (150-450) k/uL Neutrophils # (1.3-7.7) k/uL Monocytes # (0-1.0) k/uL Sodium 130 L (137-145) mmol/L BUN 32 H (9-20) mg/dL Creatinine 2.60 H (0.66-1.25) mg/dL Glucose 104 H (74-99) mg/dL POC Glucose (mg/dL) 170 H (70-110) mg/dL Calcium 7.7 L (8.4-10.2) mg/dL Assessment and Plan Plan: Abdominal pain in a patient found to have a bowel obstruction. The patient had bowel obstruction and intraoperatively, the patient was found to have severe sigmoid diverticulosis without diverticulitis, severe small bowel diverticulosis involving the jejunum and volvulus of the right lower quadrant that was reduced and mesenteric adhesions with multiple pelvic adhesions involving the sigmoid colon that were released. Decompression of the bowel was done. The patient has positive intra-abdominal cultures consistent with peritonitis. The patient has positive Enterobacter and Enterococcus faecium currently on a combination of Eraxis and meropenem. Currently n.p.o. and the patient receiving TPN for nutritional support. General surgery is on the case. Acute hypoxemic respiratory failure secondary to above, history of COPD but is a lifelong non-smoker and the patient is currently on 2 L of oxygen by nasal c annula Acute on chronic kidney injury, received hemodialysis the last hemodialysis session was on 08/12/2023, currently being monitored by nephrology. Most recent creatinine is at 2.6, Dow catheter is in place. r History of coronary disease with previous stent placement Hypertension Hyperlipidemia Hypothyroidism Dementia Lifelong non-smoker Plan: Continue TPN for nutritional support General surgery is on the case Remains on meropenem and Eraxis Surgical services are following Monitor renal function the creatinine is at 2.6. Will hold off on dialysis for today. Monitor electrolytes DNR CODE STATUS We will continue to follow
[2023-08-15 18:39] LABS: Glucose,Whole Blood 96 mg/dL (70-110)
--- NOTE | 2023-08-15 18:39 | XR ---
Abdomen. HISTORY: Abdominal pain COMPARISON: 08/10/2023. TECHNIQUE: AP upright portable view of the abdomen and supine view were obtained. FINDINGS: There is diffuse air within the colon and small bowel. A few loops of bowel remain mildly prominent b ut there are no definite air-fluid levels on the upright view. Findings suggest a small bowel adynami c ileus which is essentially unchanged. Visualized lung bases are clear and there is no free intraperitoneal air. IMPRESSION: No significant interval change in the diffuse air-filled loops of colon and small bowel most consiste nt with a stable adynamic ileus.
[2023-08-15 19:15] LABS: Free Kappa Lt Chain Qnt, Serum 11.59 mg/dL (0.33-1.94); Free Lambda Lt Chain Qnt, Seru 12.81 mg/dL (0.57-2.63)
[2023-08-15 20:43] LABS: % Iron Saturation 6.86 (15.00-50.00)
--- NOTE | 2023-08-15 23:11 | P.PN ---
Subjective Progress Note Date: 08/15/23 Principal diagnosis: Reason for follow-up is fever likely abdominal source Patient is a 83-year-old male with a past medical history significant for coronary disease COPD dementia hypertension hyperlipidemia reflux presenting to the hospital for evaluation of abdominal pain bloating has been diagnosed with the distal small bowel obstruction developing a fever concerning for possible abdominal sepsis prompting this consultation.Patient is status post robotic assisted laparoscopic lysis of adhesion extensive and decompressive enterostomy that was completed on 08/08/2023 On today's evaluation that is 08/15/2023, patient has been afebrile, patient is breathing comfortably and is currently on 2 L nasal cannula oxygen patient denies having any significant cough no chest pain shortness of breath, patient has been complaining of some nausea but no vomiting still complaining of abdominal pain and no bowel movement. Patient white count is 13.9, creatinine is 2.60 Objective - Vital Signs Vital signs: Vital Signs Temp 98.4 F 08/15/23 12:00 Pulse 98 08/15/23 12:23 Resp 16 08/15/23 12:00 BP 135/71 08/15/23 12:00 Pulse Ox 98 08/15/23 12:00 FiO2 Intake & Output 08/14/23 08/15/23 08/15/23 18:59 06:59 18:59 Intake Total 240 963.2 480 Output Total 500 Balance 240 463.2 480 Weight 79.5 kg Intake: Intake, IV Titration 963.2 Amount Mvi, Adult No.4 with Vit 963.2 K 10 ml Trace (Conc-1Ml/ Dose) 1 ml Potassium Chloride 40 meq Magnesium Sulfate gm 1 gm In Amino Acid 5%-D20w+Lytes*E* 1, 000 ml @ 48 mls/hr IV . [id number] [facility] Rx#:[id number] Oral 240 480 Output: Urine 500 Other: Voiding Method Indwelling Catheter Indwelling Catheter Indwelling Catheter # Bowel Movements 1 1 - Exam GENERAL DESCRIPTION: An elderly male up in the chair in no distress RESPIRATORY SYSTEM: Unlabored breathing , decreased breath sounds at bases HEART: S1 S2 regular rate and rhythm , ABDOMEN: Soft , no tenderness EXTREMITIES: No edema feet - Labs CBC & Chem 7: 08/15/23 08:16 08/15/23 08:16 Labs: Abnormal Lab Results - Last 24 Hours (Table) 08/14/23 08/15/23 08/15/23 Range/Units 17:46 06:02 08:16 WBC 13.9 H (3.8-10.6) k/uL RBC 3.20 L (4.30-5.90) m/uL Hgb 9.1 L (13.0-17.5) gm/dL Hct 29.0 L (39.0-53.0) % Plt Count 453 H (150-450) k/uL Neutrophils # 11.1 H (1.3-7.7) k/uL Monocytes # 1.1 H (0-1.0) k/uL Sodium (137-145) mmol/L BUN (9-20) mg/dL Creatinine (0.66-1.25) mg/dL Glucose (74-99) mg/dL POC Glucose (mg/dL) 124 H 117 H (70-110) mg/dL Calcium (8.4-10.2) mg/dL 08/15/23 08/15/23 Range/Units 08:16 12:03 WBC (3.8-10.6) k/uL RBC (4.30-5.90) m/uL Hgb (13.0-17.5) gm/dL Hct (39.0-53.0) % Plt Count (150-450) k/uL Neutrophils # (1.3-7.7) k/uL Monocytes # (0-1.0) k/uL Sodium 130 L (137-145) mmol/L BUN 32 H (9-20) mg/dL Creatinine 2.60 H (0.66-1.25) mg/dL Glucose 104 H (74-99) mg/dL POC Glucose (mg/dL) 170 H (70-110) mg/dL Calcium 7.7 L (8.4-10.2) mg/dL Assessment and Plan (1) Fever Current Visit: Yes Status: Acute Code(s): R50.9 - FEVER, UNSPECIFIED SNOMED Code(s): 968192934 (2) Leukocytosis Current Visit: Yes Status: Acute Code(s): D72.829 - ELEVATED WHITE BLOOD CELL COUNT, UNSPECIFIED SNOMED Code(s): 815703241 (3) Small bowel obstruction Current Visit: Yes Status: Acute Code(s): K56.609 - UNSP INTESTNL OBST, UNSP TO PARTIAL VERSUS COMPLETE OBST SNOMED Code(s): 911352007 (4) Peritonitis Current Visit: Yes Status: Acute Code(s): K65.9 - PERITONITIS, UNSPECIFIED SNOMED Code(s): 61941096 Plan: 1patient with low-grade fever elevated white count and this patient presented to hospital with abdominal pain and bloating and has been diagnosed with the small bowel obstruction likely etiology for his low-grade fever and elevated white count, the patient is status post laparoscopic lysis of adhesion and enterostomy abdominal cultures obtained which are currently growing Enterococcus drug-resistant Enterobacter and Marybeth 2-patient is afebrile, patient noted to have slight worsening of the white count will monitor closely, patient is currently covered with meropenem and Eraxis to continue Dictation was produced using [employer] dictation software. please excuse any grammatical, word or spelling errors. Time with Patient: Less than 30
[2023-08-16 00:01] LABS: Glucose,Whole Blood 126 mg/dL (70-110)
[2023-08-16 06:06] LABS: Glucose,Whole Blood 111 mg/dL (70-110)
--- NOTE | 2023-08-16 09:35 | P.PN ---
Subjective Patient is seen in follow-up for acute kidney injury on chronic kidney disease, currently hemodialysis dependent. Receiving TPN. On 2 L nasal cannula. Hemodynamically stable. Last dialysis August 12, 2023. Nonoliguric. Vital signs are stable. General: No acute distress. HEENT: Head exam is unremarkable. LUNGS: No audible rhonchi or wheezes. HEART: Rate and Rhythm are regular. ABDOMEN: Tender to touch. EXTREMITITES: No edema. Objective - Vital Signs Vital signs: Vital Signs Temp 98.4 F 08/16/23 07:45 Pulse 92 08/16/23 08:52 Resp 20 08/16/23 07:45 BP 136/72 08/16/23 07:45 Pulse Ox 98 08/16/23 08:41 FiO2 Intake & Output 08/15/23 08/16/23 08/16/23 18:59 06:59 18:59 Intake Total 480 1033 Output Total 700 1200 Balance -220 -167 Weight 79.5 kg 84.5 kg Intake: Intake, IV Titration 1033 Amount Mvi, Adult No.4 with Vit 1033 K 10 ml Trace (Conc-1Ml/ Dose) 1 ml Potassium Chloride 40 meq Magnesium Sulfate gm 1 gm In Amino Acid 5%-D20w+Lytes*E* 1, 000 ml @ 48 mls/hr IV . [id number] [facility] Rx#:[id number] Oral 480 Output: Urine 700 1200 Other: Voiding Method Indwelling Catheter Indwelling Catheter # Bowel Movements 1 - Labs CBC & Chem 7: 08/15/23 08:16 08/15/23 08:16 Labs: Abnormal Lab Results - Last 24 Hours (Table) 08/15/23 08/15/23 08/15/23 Range/Units 08:16 08:16 08:16 Sodium 130 L (137-145) mmol/L BUN 32 H (9-20) mg/dL Creatinine 2.60 H (0.66-1.25) mg/dL Glucose 104 H (74-99) mg/dL POC Glucose (mg/dL) (70-110) mg/dL Calcium 7.7 L (8.4-10.2) mg/dL Iron 12 L (65-175) UG/DL TIBC 175 L (228-460) UG/DL % Saturation 6.86 L (15.00-50.00) Transferrin 125.0 L (204.0-354.0) mg/dL Free [place] LC, Quant 11.59 H (0.33-1.94) mg/dL Free Lambda LC, Quant 12.81 H (0.57-2.63) mg/dL 08/15/23 08/15/23 08/16/23 Range/Units 12:03 23:59 06:05 Sodium (137-145) mmol/L BUN (9-20) mg/dL Creatinine (0.66-1.25) mg/dL Glucose (74-99) mg/dL POC Glucose (mg/dL) 170 H 126 H 111 H (70-110) mg/dL Calcium (8.4-10.2) mg/dL Iron (65-175) UG/DL TIBC (228-460) UG/DL % Saturation (15.00-50.00) Transferrin (204.0-354.0) mg/dL Free [place] LC, Quant (0.33-1.94) mg/dL Free Lambda LC, Quant (0.57-2.63) mg/dL Assessment and Plan Plan: Assessment: 1. Acute kidney injury secondary to hemodynamic ATN. No hydronephrosis noted o n CAT scan. Started on hemodialysis August 10, 2023. Last dialysis August 12, 2023. Creatinine 2.6 dated August 15, 2023. Nonoliguric. 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 Heme/onc consulted. 2. Chronic kidney disease stage IIIb with baseline creatinine 1.3-1.5 secondary to nephrosclerosis. 3. Partial small bowel obstruction. Receiving TPN. Surgery following. 4. Metabolic acidosis secondary to acute kidney injury and IV fluids. 5. Atrial tachycardia status post Cardizem drip. On metoprolol. Cardiology following. 6. Anemia. Iron deficiency noted. Plan: Maintain TPN. Avoid nephrotoxins. Hold off on hemodialysis. Continue to assess on daily basis. Continue to monitor renal function and urine output. Maintain Dow catheter. Add IV iron. Preserved EF noted on echo. Morning labs pending.
[2023-08-16] MEDS: SODIUM FERRIC GLUCONAT-SUCROSE 125 MG in SODIUM CHLORIDE 0.9% 100 ML IVPB SCH (11:08)
[2023-08-16] MEDS: SODIUM CHLORIDE 0.9% 1,000 ML IV SCH (11:09)
[2023-08-16 11:28] LABS: Basophils % (A) 0 %; Eosinophils # (A) 0.5 k/uL (0-0.7); Eosinophils % (A) 3 %; HCT 25.8 % (39.0-53.0); HGB 8.3 gm/dL (13.0-17.5); Lymphocytes # (A) 1.2 k/uL (1.0-4.8); Lymphocytes % (A) 8 %; MCHC 32.3 g/dL (31.0-37.0); MCV 89.7 fL (80.0-100.0); Mean Platelet Volume 8.6; Monocytes # (A) 1.1 k/uL (0-1.0); Monocytes % (A) 7 %; Neutrophils # (A) 12.4 k/uL (1.3-7.7); Neutrophils % (A) 81 %; Platelet Count 477 k/uL (150-450); RBC 2.88 m/uL (4.30-5.90); RDW 14.8 % (11.5-15.5); WBC 15.4 k/uL (3.8-10.6)
[2023-08-16 11:31] LABS: African American GFR (CKD) 25 (>60 ml/min/1.73 sqM); Anion Gap 6 mmol/L; Blood Urea Nitrogen 35 mg/dL (9-20); Calcium 7.7 mg/dL (8.4-10.2); Carbon Dioxide 20 mmol/L (22-30); Chloride 104 mmol/L (98-107); Glucose 107 mg/dL (74-99); Magnesium 2.1 mg/dL (1.6-2.3); Non-African American GFR(CKD) 22 (>60 ml/min/1.73 sqM); Potassium 4.9 mmol/L (3.5-5.1); Sodium 130 mmol/L (137-145)
[2023-08-16 11:59] LABS: Glucose,Whole Blood 123 mg/dL (70-110)
--- NOTE | 2023-08-16 13:06 | P.PN ---
Subjective Progress Note Date: 08/16/23 Progress note Date of service 08/16/[address] Griffin Patient seen and evaluated at bedside and discussed with his nurse. Patient sleepy but able to be awake with verbal stimuli and he is unable to eat with the current distention of the abdomen and ileus and he had a x-ray today still indicating the ileus with the clinically concerning finding as #1 severe pain and tenderness in the lower quadrant and tympanitic and tenderness of the abdomen with distention and underlying severe lower abdominal pain and I am very concerned I did discuss with the nurse advice to Dr. Montaño and to recheck the patient herself because of the finding still not resolving since he had a small bowel obstruction and even after the laparoscopic assisted robotic. Is now has 1+ edema of the lower extremity secondary to prolonged starvation with not eating His creatinine is starting to creep up and so far no further dialysis His white count started to elevate the elevated gradually increasing despite the antibiotic Patient and his confusion status with related to illness as well and prolonged starvation I originally recommended that Dr. Pinzon or the surgeon on-call to recheck the patient and probably Gastrografin study could be helping or not. Her vital sign temperature 98.2 F axillary, heart rate 92/min98/min, respiratory rate is 20, blood pressure 155/70 with a mean 98, he is on oxygen 2 L nasal cannula with 99%. I find that patient could not eat and he had food needs to be fed and monitor if he getting any nausea or vomiting with his bad ileus with the distention and afraid from aspiration pneumonia. In regard of ambulation, patient has problem with ambulation even before his current illness with the small bowel obstruction and he had a spinal stenosis and you can refill that if you look at the CT scan of the abdomen that was done initially at the patient admission and he had L4-L5 discogenic disease and difficulty of ambulation, so the idea of ambulating the patient with the patient severe pain in the abdomen and also he had a back pain does not really make good decision and the current problem is not resolving yet still critical. HEENT was negative no changes Neck was supple Chest he has history of COPD in the past of the lung is irrigated currently with normal breath sounds. Heart is regular sinus rhythm occasional tachycardia but stable. The abdomen is the main concern with prolonged time of starvation and the ileus postoperative and no further evaluation or treatment is x-ray done today of the abdomen still ileus and I will be asking Dr. Pinzon to reevaluate the patient condition. Extremities he had 1+ pitting edema, assumed from the hypoproteinemia hypoalb uminemia and I did order prealbumin however the result is not available. He has laboratory done today indicating his GFR is down from yesterday 22 for non- and his creatinine is up 2.57 and BUN of 35 with a sodium 130 potassium is normal at 4.9 his white count is also increased today is 15.4 with the hemoglobin dropped to 8.3 and hematocrit dropped to 25.8. And patient received iron transfusion. Assessment: I am really concerned of his progression to worse with the underlying his abdomi nal problem with the nonresolving ileus postoperative could be also in association with still some adhesion and dropping of his hemoglobin. And in association with renal failure. With his multiple medical problem I recommended that Dr. Pinzon may have to see the patient herself and evaluate to see if there is any other possibility of care of this current problem. #2 acute kidney injury with the associated acute renal failure and nonoliguric no dialysis today. 3. No active bowel movement to suggest to the remanent of mucus coming out and there is no real bowel movement with this current problem Plan 1. Will notify Dr. Pinzon with the concern and will appreciate her input personally on this matter Objective - Vital Signs Vital signs: Vital Signs Temp 98.2 F 08/16/23 11:05 Pulse 92 08/16/23 12:15 Resp 20 08/16/23 11:05 BP 155/70 08/16/23 11:05 Pulse Ox 99 08/16/23 11:05 FiO2 Intake & Output 08/15/23 08/16/23 08/16/23 18:59 06:59 18:59 Intake Total 480 1033 Output Total 700 1200 Balance -220 -167 Weight 79.5 kg 84.5 kg Intake: Intake, IV Titration 1033 Amount Mvi, Adult No.4 with Vit 1033 K 10 ml Trace (Conc-1Ml/ Dose) 1 ml Potassium Chloride 40 meq Magnesium Sulfate gm 1 gm In Amino Acid 5%-D20w+Lytes*E* 1, 000 ml @ 48 mls/hr IV . [id number] [facility] Rx#:[id number] Oral 480 Output: Urine 700 1200 Other: Voiding Method Indwelling Catheter Indwelling Catheter Indwelling Catheter # Bowel Movements 1 1 - Labs CBC & Chem 7: 08/16/23 10:05 08/16/23 10:05 Labs: Abnormal Lab Results - Last 24 Hours (Table) 08/15/23 08/15/23 08/15/23 Range/Units 08:16 08:16 23:59 WBC (3.8-10.6) k/uL RBC (4.30-5.90) m/uL Hgb (13.0-17.5) gm/dL Hct (39.0-53.0) % Plt Count (150-450) k/uL Neutrophils # (1.3-7.7) k/uL Monocytes # (0-1.0) k/uL Sodium (137-145) mmol/L Carbon Dioxide (22-30) mmol/L BUN (9-20) mg/dL Creatinine (0.66-1.25) mg/dL Glucose (74-99) mg/dL POC Glucose (mg/dL) 126 H (70-110) mg/dL Calcium (8.4-10.2) mg/dL Iron 12 L (65-175) UG/DL TIBC 175 L (228-460) UG/DL % Saturation 6.86 L (15.00-50.00) Transferrin 125.0 L (204.0-354.0) mg/dL Free [place] LC, Quant 11.59 H (0.33-1.94) mg/dL Free Lambda LC, Quant 12.81 H (0.57-2.63) mg/dL 08/16/23 08/16/23 08/16/23 Range/Units 06:05 10:05 10:05 WBC 15.4 H (3.8-10.6) k/uL RBC 2.88 L (4.30-5.90) m/uL Hgb 8.3 L (13.0-17.5) gm/dL Hct 25.8 L (39.0-53.0) % Plt Count 477 H (150-450) k/uL Neutrophils # 12.4 H (1.3-7.7) k/uL Monocytes # 1.1 H (0-1.0) k/uL Sodium 130 L (137-145) mmol/L Carbon Dioxide 20 L (22-30) mmol/L BUN 35 H (9-20) mg/dL Creatinine 2.57 H (0.66-1.25) mg/dL Glucose 107 H (74-99) mg/dL POC Glucose (mg/dL) 111 H (70-110) mg/dL Calcium 7.7 L (8.4-10.2) mg/dL Iron (65-175) UG/DL TIBC (228-460) UG/DL % Saturation (15.00-50.00) Transferrin (204.0-354.0) mg/dL Free [place] LC, Quant (0.33-1.94) mg/dL Free Lambda LC, Quant (0.57-2.63) mg/dL 08/16/23 Range/Units 11:58 WBC (3.8-10.6) k/uL RBC (4.30-5.90) m/uL Hgb (13.0-17.5) gm/dL Hct (39.0-53.0) % Plt Count (150-450) k/uL Neutrophils # (1.3-7.7) k/uL Monocytes # (0-1.0) k/uL Sodium (137-145) mmol/L Carbon Dioxide (22-30) mmol/L BUN (9-20) mg/dL Creatinine (0.66-1.25) mg/dL Glucose (74-99) mg/dL POC Glucose (mg/dL) 123 H (70-110) mg/dL Calcium (8.4-10.2) mg/dL Iron (65-175) UG/DL TIBC (228-460) UG/DL % Saturation (15.00-50.00) Transferrin (204.0-354.0) mg/dL Free [place] LC, Quant (0.33-1.94) mg/dL Free Lambda LC, Quant (0.57-2.63) mg/dL
--- NOTE | 2023-08-16 14:16 | P.PN ---
Subjective Progress Note Date: 08/16/23 This is a 83-year-old male patient with a known history of coronary artery disease with previous stent placement, dementia, hypertension, hyperlipidemia, hypothyroidism, non-smoker who presented here to the emergency room on 08/01/2023 with abdominal pain. He had been followed by surgical services. He did have a nasogastric tube which had approximately 2100 cc output once put in. However the patient inadvertently pulled it out last night. Today he had developed increased abdominal discomfort, tachycardia and shortness of breath. We were consulted for possible transfer to the ICU. He is seen today on the regular medical floor. He is awake and alert. He denies any pain at rest. He is tender to palpation. He is tachycardic, sinus. Currently afebrile. Continue O2 saturations in the mid 90s on 3 L/min per nasal cannula. Blood pressure stable. Blood cultures reveal no growth. White count 8.5. Hemoglobin 12.6. Platelets 373. Sodium 139. Potassium 4.6. Bicarb 14. BUN 34. Creatinine 3.11. Glucose 88. Amylase 73. Lipase 49. CT scan of the abdomen today revealed bowel obstruction pattern. Small amount of free fluid. Chest x-ray reveals no acute cardiopulmonary process. A nasogastric tube has been reinserted and in good position. He is currently on Zosyn. Patient was seen and examined today on 08/05/2023, patient is doing much better today compared to the last 2 days, less abdominal pain, no nausea no vomiting, continues to have nasogastric tube in place.WBC count is 9.9 hemoglobin 11.3 basic metabolic profile is normal however his renal functioning is worse with BUN up to 69 creatinine 5.60, and that is being addressed by nephrology on the case. His acute kidney injury is felt to be related to hemodynamic ATN, no hydronephrosis on CT of the abdomen, patient does have history of chronic kidney disease stage IIIb. Patient is on Cardizem drip now for atrial tachycardia. And cardiology is following Reevaluate today on 08/06/23, patient pulled his nasogastric tube yesterday, continues to have abdominal distention and abdominal pain. Apparently multiple attempts by nurses to place the nasogastric tube were unsuccessful. Surgery is to address the nasogastric tube placement and or exploratory laparotomy on this patient to relieve his bowel obstruction.WBC count today is 8.4 hemoglobin 10.4, basic metabolic profile is normal renal profile is worsening with a BUN of 85 creatinine 6.08 and his renal profile is being addressed by nephrology on the case Patient was reevaluated today on 08/07/2023, continues to have abdominal pain, continues to have small bowel obstruction, and now he is developing worsening renal disease. From the looks of it, patient may be heading towards dialysis. Patient was seen by Dr. Truong today, and I believe he is recommending exploratory laparotomy after he is seen by Dr. Goodman tomorrow. Continues to have decent urine output, 600 cc in the last 8 hours. Could not have a nasogastric tube placed back, patient is getting in Progress note dated August 08, 2023. 83-year-old male seen in room 378. The patient is currently on 2 L of oxygen. The patient is getting dextrose with half-normal saline at 100 cc an hour. He does have a significantly tender abdomen, anytime he burps, or coughs. Also, he is tender on palpation. Current labs include a white count 9.5, hemoglobin 11.4, hematocrit 36, and a platelet count of 343,000. Sodium 143, potassium 4.2, chlorides 107, CO2 27, BUN 93, creatinine 5.62. Calcium is 8, with a phosphorus of 5.4. Glucose is 97. Blood cultures are negative. Progress note dated August 09, 2023. 83-year-old male seen today in room 378. The patient is currently on 3 L of oxygen. NG tube remains in place. He is getting D5 with half-normal saline at 100 cc an hour. The patient has significant abdominal pain on palpation of the abdomen. Labs today include a white count 9.3, hemoglobin 10.8, hematocrit 33.9, and a platelet count of 355,000. Sodium 140, potassium 4.4, chlorides 110, CO2 22, BUN 87, and creatinine 5.53. Glucose is 116. Albumin is 2. All microbiologic sampling is thus far negative. Progress note dated August 10, 2023. 83-year-old male seen again in room 378. The patient again pulled out his NG tube. The patient is on room air. The patient is getting TPN at 30 cc an hour. The patient still has significant abdominal discomfort on palpation. I count 10.5, hemoglobin 10.7, hematocrit 33.8, and platelet count is 384,000. Sodium 140, potassium 3.8, chlorides 107, CO2 20, anion gap 13, BUN 92, creatinine 5.60. Glucose is 123. Magnesium 1.9. Phosphorus 5.2. Progress note dated August 11, 2023. 83-year-old male seen today in room 377. Currently, the patient is receiving hemodialysis. He is on room air. The patient is a DO NOT RESUSCITATE patient. He is getting TPN at 48 cc an hour. He continues on Eraxis, and Zosyn. No new laboratory data today as yet, other than a glucose of 106. Chest x-ray from yesterday shows some mild streaky basilar atelectasis. Progress note dated August 12, 2023. 83-year-old male, seen in room 377. Currently, the patient is on room air. The patient is getting TPN at 48 cc an hour. He continues on Eraxis, and meropenem. Current labs include a sodium 133, potassium 3.2, chlorides 102, CO2 24, BUN 37, creatinine 2.53. Glucose is 128. Calcium 7.5. Albumin 1.9. The patient does not appear to be as tender, on palpation of the abdomen, as he has been, on previous days. Progress note dated August 13, 2023. 83-year-old male seen today in room 377. The patient continues on room air. S aturations are 94%. The rest of his vital signs are relatively stable. The patient continues on TPN at 48 cc an hour, and D5.45, at 100 cc an hour. He also continues on meropenem, and the antifungal, and Eraxis. Current laboratory data includes a sodium 131, potassium 3.3, chlorides 101, CO2 25, BUN 23, creatinine 1.96. Glucose is 115. Albumin is 1.9. Wound cultures were positive for Enterobacter aerogenes, Marybeth albicans, and Enterococcus faecalis. The patient is seen today August 14, 2023 in follow-up on the regular medical floor. He is currently resting in bed. He denies any worsening abdominal pain. He is maintaining O2 saturations in the 90s on room air. He has D5 W and 0.45 normal saline at 100 MLS per hour. He remains on TPN at 40 MLS per hour. Wound cultures were positive for Enterobacter aerogenes, Marybeth albicans, Enterococcus faecalis. White count 11.4. Hemoglobin 9.5. Platelets 358. Sodium 130. Potassium 3.8. Bicarb 25. BUN 28. Creatinine 2.29. Glucose 98. C-reactive protein 6.5. He is continued on meropenem and Eraxis. Continued on bronchodilators. Heparin for DVT prophylaxis. On today's evaluation of 08/15/2023, the patient is being seen for a follow-up. The patient had a complicated bowel obstruction with left lower quadrant pain. The patient underwent a robotic laparoscopic lysis of adhesions and decompression enterostomy. Intraoperatively, the patient was found to have severe sigmoid diverticulosis without diverticulitis. There was severe small bowel diverticulosis involving the jejunum and there was volvulus in the right lower quadrant that was reduced. There was mesenteric adhesions and multiple pelvic adhesions involving the sigmoid colon that was released. Decompression of the bowel was done. Intra-abdominal cultures turned out to be positive for Enterobacter and Enterococcus faecium. As such, the patient could have had a component of peritonitis. The patient is currently on broad-spectrum antibiotics. The patient is currently on a combination of meropenem and Eraxis. The patient is also on TPN for nutritional support. He is resting comfortably in bed. No signs of any respiratory distress. On 2 L of oxygen by nasal cannula with a pulse ox of 98%. The blood work shows a WBC count 13.9 with a hemoglobin 9.1 and a platelet count of 453. BUN is at 32 with a creatinine of 2.6 and the patient been seen by nephrology. The patient is undergoing dialysis and last dialysis was done on 08/12/2023 and a dialysis currently on hold and the renal function is being monitored very closely. Dow catheter is in place. On today's evaluation of 08/16/2023, I am seeing the patient for a follow-up. The patient is resting comfortably in bed. Continues to have some abdominal pain. This was discussed with the general surgical team and it was thought that his abdominal exam was essentially benign. The patient has bowel sounds and the patient is also passing mucoid bowel movements. White cell count of 15.4 with a hemoglobin of 8.3. There is some mild uptrending of his white cell count count over the past 48 hours. Platelet count is at 477, BUN is 35 with a creatinine of 2.5 which is essentially stable compared to yesterday and a sodium levels at 130. He remains on Eraxis and meropenem. He remains on TPN for nutritional support. No signs of any respiratory distress and the patient is on 2 L of oxygen by nasal cannula with a pulse ox of 99%. General surgery remains on the case. Objective - Vital Signs Vital signs: Vital Signs Temp 98.4 F 08/16/23 07:45 Pulse 92 08/16/23 08:52 Resp 20 08/16/23 07:45 BP 136/72 08/16/23 07:45 Pulse Ox 98 08/16/23 08:41 FiO2 Intake & Output 08/15/23 08/16/23 08/16/23 18:59 06:59 18:59 Intake Total 480 1033 Output Total 700 1200 Balance -220 -167 Weight 79.5 kg 84.5 kg Intake: Intake, IV Titration 1033 Amount Mvi, Adult No.4 with Vit 1033 K 10 ml Trace (Conc-1Ml/ Dose) 1 ml Potassium Chloride 40 meq Magnesium Sulfate gm 1 gm In Amino Acid 5%-D20w+Lytes*E* 1, 000 ml @ 48 mls/hr IV . [id number] [facility] Rx#:[id number] Oral 480 Output: Urine 700 1200 Other: Voiding Method Indwelling Catheter Indwelling Catheter Indwelling Catheter # Bowel Movements 1 1 - Exam An 83-year-old male patient, on room air, no acute distress. No respiratory difficulty. The patient is currently on 2 L of oxygen by nasal cannula. HEENT examination is grossly unremarkable. Mucous membranes are moist. No oral lesions. Neck supple. Full range of motion. No adenopathy thyromegaly or neck vein distention. Cardiovascular examination reveals regular rhythm rate. S1-S2 normal. No S3 or S4. No discernible murmur noted. Lungs reveal clear breath sounds. Breath sounds are equal bilaterally. No adventitious lung sounds including wheezes rhonchi or crackles. Abdomen is tender on palpation. No bowel sounds. Hypoactive bowel sounds. Surgical wound site are all dry clean and intact. Extremities are intact. No cyanosis clubbing or edema. Skin is without rash or lesion. Neurologic examination is brief but nonfocal. - Labs CBC & Chem 7: 08/16/23 10:05 08/16/23 10:05 Labs: Abnormal Lab Results - Last 24 Hours (Table) 08/15/23 08/15/23 08/15/23 Range/Units 08:16 08:16 12:03 POC Glucose (mg/dL) 170 H (70-110) mg/dL Iron 12 L (65-175) UG/DL TIBC 175 L (228-460) UG/DL % Saturation 6.86 L (15.00-50.00) Transferrin 125.0 L (204.0-354.0) mg/dL Free [place] LC, Quant 11.59 H (0.33-1.94) mg/dL Free [place] LC, Quant 12.81 H (0.57-2.63) mg/dL 08/15/23 08/16/23 Range/Units 23:59 06:05 POC Glucose (mg/dL) 126 H 111 H (70-110) mg/dL Iron (65-175) UG/DL TIBC (228-460) UG/DL % Saturation (15.00-50.00) Transferrin (204.0-354.0) mg/dL Free [place] LC, Quant (0.33-1.94) mg/dL Free [place]ambda LC, Quant (0.57-2.63) mg/dL Assessment and Plan Plan: Abdominal pain in a patient found to have a bowel obstruction. The patient had bowel obstruction and intraoperatively, the patient was found to have severe sigmoid diverticulosis without diverticulitis, severe small bowel diverticulosis involving the jejunum and volvulus of the right lower quadrant that was reduced and mesenteric adhesions with multiple pelvic adhesions involving the sigmoid colon that were released. Decompression of the bowel was done. The patient has positive intra-abdominal cultures consistent with peritonitis. The patient has positive Enterobacter and Enterococcus faecium currently on a combination of Eraxis and meropenem. Currently n.p.o. and the patient receiving TPN for nutritional support. General surgery is on the case. Condition is essentially unchanged compared to yesterday. The patient remains on the same antibiotic coverage. Has bowel sounds and passing some bowel movement activity. Acute hypoxemic respiratory failure secondary to above, history of COPD but is a lifelong non-smoker and the patient is currently on 2 L of oxygen by nasal cannula Acute on chronic kidney injury, received hemodialysis the last hemodialysis session was on 08/12/2023, currently being monitored by nephrology. Creatinine is stable compared to yesterday Mild leukocytosis History of coronary disease with previous stent placement Hypertension Hyperlipidemia Hypothyroidism Dementia Lifelong non-smoker Plan: Monitor the abdominal examination on a daily basis Assess swallow Monitor the white cell count Monitor creatinine which is stable on today's evaluation Continue TPN for nutritional support General surgery is on the case Remains on meropenem and Eraxis Surgical services are following Physical therapy Monitor electrolytes DNR CODE STATUS We will continue to follow
--- NOTE | 2023-08-16 14:51 | P.PN ---
Subjective Progress Note Date: 08/16/23 Principal diagnosis: Reason for follow-up is fever likely abdominal source Patient is a 83-year-old male with a past medical history significant for coronary disease COPD dementia hypertension hyperlipidemia reflux presenting to the hospital for evaluation of abdominal pain bloating has been diagnosed with the distal small bowel obstruction developing a fever concerning for possible abdominal sepsis prompting this consultation.Patient is status post robotic assisted laparoscopic lysis of adhesion extensive and decompressive enterostomy that was completed on 08/08/2023 On today's evaluation that is 08/16/2023,the patient denies any fever or any chills, patient is breathing comfortably on 2 L nasal cannula oxygen, the patient denies chest pain shortness of breath and no significant cough, patient still complains of some abdominal pain however it has decreased in intensity no nausea vomiting no bowel movement today. Patient white count is up to 15.4 today, creatinine is 2.57 Objective - Vital Signs Vital signs: Vital Signs Temp 98.2 F 08/16/23 11:05 Pulse 98 08/16/23 14:00 Resp 20 08/16/23 11:05 BP 155/70 08/16/23 11:05 Pulse Ox 99 08/16/23 11:05 FiO2 Intake & Output 08/15/23 08/16/23 08/16/23 18:59 06:59 18:59 Intake Total 480 1033 Output Total 700 1200 Balance -220 -167 Weight 79.5 kg 84.5 kg 84.5 kg Intake: Intake, IV Titration 1033 Amount Mvi, Adult No.4 with Vit 1033 K 10 ml Trace (Conc-1Ml/ Dose) 1 ml Potassium Chloride 40 meq Magnesium Sulfate gm 1 gm In Amino Acid 5%-D20w+Lytes*E* 1, 000 ml @ 48 mls/hr IV . [id number] Rx#:[id number] Oral 480 Output: Urine 700 1200 Other: Voiding Method Indwelling Catheter Indwelling Catheter Indwelling Catheter # Bowel Movements 1 1 - Exam GENERAL DESCRIPTION: An elderly male up in the chair in no distress RESPIRATORY SYSTEM: Unlabored breathing , decreased breath sounds at bases HEART: S1 S2 regular rate and rhythm , ABDOMEN: Soft , no tenderness EXTREMITIES: No edema feet - Labs CBC & Chem 7: 08/16/23 10:05 08/16/23 10:05 Labs: Abnormal Lab Results - Last 24 Hours (Table) 08/15/23 08/15/23 08/15/23 Range/Units 08:16 08:16 23:59 WBC (3.8-10.6) k/uL RBC (4.30-5.90) m/uL Hgb (13.0-17.5) gm/dL Hct (39.0-53.0) % Plt Count (150-450) k/uL Neutrophils # (1.3-7.7) k/uL Monocytes # (0-1.0) k/uL Sodium (137-145) mmol/L Carbon Dioxide (22-30) mmol/L BUN (9-20) mg/dL Creatinine (0.66-1.25) mg/dL Glucose (74-99) mg/dL POC Glucose (mg/dL) 126 H (70-110) mg/dL Calcium (8.4-10.2) mg/dL Iron 12 L (65-175) UG/DL TIBC 175 L (228-460) UG/DL % Saturation 6.86 L (15.00-50.00) Transferrin 125.0 L (204.0-354.0) mg/dL Free [place] LC, Quant 11.59 H (0.33-1.94) mg/dL Free [place] LC, Quant 12.81 H (0.57-2.63) mg/dL 08/16/23 08/16/23 08/16/23 Range/Units 06:05 10:05 10:05 WBC 15.4 H (3.8-10.6) k/uL RBC 2.88 L (4.30-5.90) m/uL Hgb 8.3 L (13.0-17.5) gm/dL Hct 25.8 L (39.0-53.0) % Plt Count 477 H (150-450) k/uL Neutrophils # 12.4 H (1.3-7.7) k/uL Monocytes # 1.1 H (0-1.0) k/uL Sodium 130 L (137-145) mmol/L Carbon Dioxide 20 L (22-30) mmol/L BUN 35 H (9-20) mg/dL Creatinine 2.57 H (0.66-1.25) mg/dL Glucose 107 H (74-99) mg/dL POC Glucose (mg/dL) 111 H (70-110) mg/dL Calcium 7.7 L (8.4-10.2) mg/dL Iron (65-175) UG/DL TIBC (228-460) UG/DL % Saturation (15.00-50.00) Transferrin (204.0-354.0) mg/dL Free [place] LC, Quant (0.33-1.94) mg/dL Free [place] LC, Quant (0.57-2.63) mg/dL 08/16/23 Range/Units 11:58 WBC (3.8-10.6) k/uL RBC (4.30-5.90) m/uL Hgb (13.0-17.5) gm/dL Hct (39.0-53.0) % Plt Count (150-450) k/uL Neutrophils # (1.3-7.7) k/uL Monocytes # (0-1.0) k/uL Sodium (137-145) mmol/L Carbon Dioxide (22-30) mmol/L BUN (9-20) mg/dL Creatinine (0.66-1.25) mg/dL Glucose (74-99) mg/dL POC Glucose (mg/dL) 123 H (70-110) mg/dL Calcium (8.4-10.2) mg/dL Iron (65-175) UG/DL TIBC (228-460) UG/DL % Saturation (15.00-50.00) Transferrin (204.0-354.0) mg/dL Free [place] LC, Quant (0.33-1.94) mg/dL Free [place] LC, Quant (0.57-2.63) mg/dL Assessment and Plan (1) Fever Current Visit: Yes Status: Acute Code(s): R50.9 - FEVER, UNSPECIFIED S NOMED Code(s): 545539420 (2) Leukocytosis Current Visit: Yes Status: Acute Code(s): D72.829 - ELEVATED WHITE BLOOD CELL COUNT, UNSPECIFIED SNOMED Code(s): 557041446 (3) Small bowel obstruction Current Visit: Yes Status: Acute Code(s): K56.609 - UNSP INTESTNL OBST, UNSP TO PARTIAL VERSUS COMPLETE OBST SNOMED Code(s): 672464035 (4) Peritonitis Current Visit: Yes Status: Acute Code(s): K65.9 - PERITONITIS, UNSPECIFIED SNOMED Code(s): 55808767 Plan: 1patient with low-grade fever elevated white count and this patient presented to hospital with abdominal pain and bloating and has been diagnosed with the small bowel obstruction likely etiology for his low-grade fever and elevated white count, the patient is status post laparoscopic lysis of adhesion and enterostomy abdominal cultures obtained which are currently growing Enterococcus drug-resistant Enterobacter and Marybeth 2-patient is afebrile, patient did have slight worsening of the white count but will monitor closely we will recheck his infection markers with a.m. lab and continue the patient on meropenem and Eraxis Dictation was produced using [employer] dictation software. please excuse any grammatical, word or spelling errors. Time with Patient: Less than 30
--- NOTE | 2023-08-16 15:59 | P.CONS ---
History of Present Illness - Reason for Consult Consult date: 08/16/23 r/o MM, MGUS Requesting physician: Cordell Dee - Chief Complaint ABd pain - History of Present Illness We have been asked to see because of concerns for MGUS/MM. Been in pt for 15 days to date for SBO, acute renal failure on dialysis. He was admitted with a chief complaint of progressive lower abdominal pain and constipation. There was a fall prior to coming to the emergency room because of pain. CT showed a distal small bowel obstruction. On 08/08/2023 patient had laparoscopic lysis of adhesions and decompressive enterostomy. Patient was also evaluated by Nephrology, dialysis catheter was placed. Patient is not able to give us much history, he denies any knowledge of blood disorders, malignancy. It is noted on chart review patient does have chronic kidney disease. Chronic mild anemia, normocytic, normochromic, progressive this visit. Review of Systems 10 point ROS is difficult to obtain due to patient being a poor historian Past Medical History Past Medical History: Coronary Artery Disease (CAD), COPD, Dementia, GERD/Reflux, Hyperlipidemia, Hypertension Additional Past Medical History / Comment(s): dysphagia, states some memory loss History of Any Multi-Drug Resistant Organisms: None Reported Past Surgical History: Cholecystectomy, Heart Catheterization With Stent Additional Past Surgical History / Comment(s): corbin cataracts, EGD Past Anesthesia/Blood Transfusion Reactions: No Reported Reaction Date of Last Stent Placement:: unknown Past Psychological History: No Psychological Hx Reported Smoking Status: Never smoker Past Alcohol Use History: None Reported Past Drug Use History: None Reported - Past Family History Mother Family Medical History: Cancer Father Family Medical History: Cancer Medications and Allergies Home Medications Medication Instructions Recorded Confirmed Type Metoprolol Tartrate 25 mg PO BID 05/27/17 08/01/23 History Montelukast [Singulair] 10 mg PO DAILY 05/27/17 08/01/23 History Theophylline 12 Hour [Silvio-Dur] 300 mg PO BID 05/27/17 08/01/23 History Atorvastatin [Lipitor] 80 mg PO HS 11/22/19 08/01/23 History Famotidine [Pepcid] 20 mg PO BID 11/22/19 08/01/23 History Levothyroxine Sodium [Synthroid] 50 mcg PO DAILY 11/22/19 08/01/23 History Donepezil [Aricept] 10 mg PO HS 03/15/23 08/01/23 History Losartan [Cozaar] 50 mg PO DAILY 03/15/23 08/01/23 History Memantine [Namenda] 10 mg PO BID 03/15/23 08/01/23 History Budesonide-Formot 160-4.5 Mcg 2 puff INHALATION RT-BID #1 each 03/19/23 08/01/23 Rx [Symbicort 160-4.5 Mcg Inhaler] Ipratropium-Albuterol Nebulize 3 ml INHALATION RT-QID #120 each 03/19/23 08/01/23 Rx [Duoneb 0.5 mg-3 mg/3 ml Soln] Albuterol Sulfate [Albuterol 2 puff INHALATION RT-QID PRN 04/08/23 08/01/23 History Sulfate Hfa] Aspirin EC [Ecotrin Low Dose] 81 mg PO DAILY 08/01/23 08/01/23 History Triamcinolone 0.1% Cream [Kenalog 1 applicatio TOPICAL BID 08/01/23 08/01/23 History 0.1% Cream] Allergies Allergy/AdvReac Type Severity Reaction Status Date / Time ciprofloxacin [From Cipro] Allergy Rash/Hives Verified 08/01/23 11:53 levofloxacin [From Levaquin] Allergy Unknown Verified 08/01/23 11:53 rofecoxib Allergy Unknown Verified 08/01/23 11:53 sulfamethoxazole Allergy Swelling Verified 08/01/23 11:53 [From Bactrim] trimethoprim [From Bactrim] Allergy Swelling Verified 08/01/23 11:53 fluconazole [From Diflucan] AdvReac DIzziness Verified 08/01/23 11:53 & Giddiness Physical Exam Vitals: Vital Signs Temp Pulse Pulse Resp BP Pulse Ox 08/16/23 07:45 98.4 F 98 20 136/72 98 08/16/23 04:00 98.4 F 97 18 145/64 95 08/16/23 02:00 106 H 20 08/16/23 00:00 98 F 106 H 20 133/62 96 08/15/23 21:30 92 08/15/23 21:18 96 08/15/23 20:00 98.4 F 123 H 22 163/72 95 08/15/23 16:00 98.6 F 101 H 16 129/51 98 08/15/23 12:23 98 08/15/23 12:00 98.4 F 98 16 135/71 98 08/15/23 11:47 88 18 08/15/23 11:35 90 18 08/15/23 09:53 92 08/15/23 09:43 88 Intake and Output 08/15/23 08/16/23 08/16/23 22:59 06:59 14:59 Intake Total 1033 Output Total 1200 Balance -167 Intake: Intake, IV Titration 1033 Amount Mvi, Adult No.4 with Vit 1033 K 10 ml Trace (Conc-1Ml/ Dose) 1 ml Potassium Chloride 40 meq Magnesium Sulfate gm 1 gm In Amino Acid 5%-D20w+Lytes*E* 1, 000 ml @ 48 mls/hr IV . [id number] [facility] Rx#:[id number] Output: Urine 1200 Other: Voiding Method Indwelling Catheter Indwelling Catheter # Bowel Movements 1 Weight 84.5 kg - Constitutional General appearance: average body habitus, cooperative, no acute distress - EENT Eyes: anicteric sclerae, EOMI ENT: hearing grossly normal - Neck Neck: no lymphadenopathy - Respiratory Respiratory: bilateral: CTA - Cardiovascular Rhythm: regular Heart sounds: normal: S1, S2 leg Peripheral Edema: bilateral: None - Gastrointestinal General gastrointestinal: no absent bowel sounds, no decreased bowel sounds, no distended, no hepatomegaly, no hyperactive bowel sounds, normal bowel sounds, no organomegaly, no rigid, no scaphoid, soft, no splenomegaly, no tenderness, no umbilical hernia, no ventral hernia - Integumentary Integumentary: normal - Neurologic Neurologic: CNII-XII intact (grossly) - Musculoskeletal Musculoskeletal: generalized weakness - Psychiatric A&Ox2 Psychiatric: appropriate affect Results CBC & Chem 7: 08/16/23 10:05 08/16/23 10:05 Labs: Abnormal Lab Results - Last 24 Hours (Table) 08/15/23 08/15/23 08/15/23 Range/Units 08:16 08:16 08:16 WBC 13.9 H (3.8-10.6) k/uL RBC 3.20 L (4.30-5.90) m/uL Hgb 9.1 L (13.0-17.5) gm/dL Hct 29.0 L (39.0-53.0) % Plt Count 453 H (150-450) k/uL Neutrophils # 11.1 H (1.3-7.7) k/uL Monocytes # 1.1 H (0-1.0) k/uL Sodium 130 L (137-145) mmol/L BUN 32 H (9-20) mg/dL Creatinine 2.60 H (0.66-1.25) mg/dL Glucose 104 H (74-99) mg/dL POC Glucose (mg/dL) (70-110) mg/dL Calcium 7.7 L (8.4-10.2) mg/dL Iron (65-175) UG/DL TIBC (228-460) UG/DL % Saturation (15.00-50.00) Transferrin (204.0-354.0) mg/dL [place] LC, Quant 11.59 H (0.33-1.94) mg/dL Free [place] LC, Quant 12.81 H (0.57-2.63) mg/dL 08/15/23 08/15/23 08/15/23 Range/Units 08:16 12:03 23:59 WBC (3.8-10.6) k/uL RBC (4.30-5.90) m/uL Hgb (13.0-17.5) gm/dL Hct (39.0-53.0) % Plt Count (150-450) k/uL Neutrophils # (1.3-7.7) k/uL Monocytes # (0-1.0) k/uL Sodium (137-145) mmol/L BUN (9-20) mg/dL Creatinine (0.66-1.25) mg/dL Glucose (74-99) mg/dL POC Glucose (mg/dL) 170 H 126 H (70-110) mg/dL Calcium (8.4-10.2) mg/dL Iron 12 L (65-175) UG/DL TIBC 175 L (228-460) UG/DL % Saturation 6.86 L (15.00-50.00) Transferrin 125.0 L (204.0-354.0) mg/dL [place] LC, Quant (0.33-1.94) mg/dL Free [place] LC, Quant (0.57-2.63) mg/dL 04/09/24 Range/Units 06:05 WBC (3.8-10.6) k/uL RBC (4.30-5.90) m/uL Hgb (13.0-17.5) gm/dL Hct (39.0-53.0) % Plt Count (150-450) k/uL Neutrophils # (1.3-7.7) k/uL Monocytes # (0-1.0) k/uL Sodium (137-145) mmol/L BUN (9-20) mg/dL Creatinine (0.66-1.25) mg/dL Glucose (74-99) mg/dL POC Glucose (mg/dL) 111 H (70-110) mg/dL Calcium (8.4-10.2) mg/dL Iron (65-175) UG/DL TIBC (228-460) UG/DL % Saturation (15.00-50.00) Transferrin (204.0-354.0) mg/dL [place] LC, Quant (0.33-1.94) mg/dL Free [place] LC, Quant (0.57-2.63) mg/dL Assessment and Plan Plan: Nephrology workup revealed Elevated K/L light chain, normal ratio Immunofixation reporting IgG lambda paraproteinemia. Ordered protein electrophoresis to quantify amt of paraproteinemia Hemoglobin 9.1 today. No documentation of any transfusions at this visit Iron studies show low iron saturation with a high end of normal ferritin, possibly some mild iron deficiency Pending results of SPEP. Further recommendations to follow based on results. Not felt that at this time the patient's changes in blood counts are related to a paraproteinemia, more suggestive of acute conditions that patient is experiencing but, we will follow-up with additional lab studies. Doctor attests: I performed a history and physical examination of this patient, developed impression and plan of care. Discussed with dictator. I agree with dictators note, documented as a scribe.
--- NOTE | 2023-08-16 16:03 | P.PN ---
Subjective Progress Note Date: 08/16/23 CHIEF COMPLAINT: Abdominal pain HISTORY OF PRESENT ILLNESS: Patient continues to complain of abdominal pain. He is having flatus and small loose stools. Abdominal x-ray still reporting an ileus. No nausea or vomiting. Poor oral intake. Patient with small bowel obstruction status post robotic assisted laparoscopic lysis of adhesions and decompressive enterostomy, POD#7. Afebrile. White count is up from 13.9-15.4 Hgb 8.3 sodium is 130 creatinine 2.57 PHYSICAL EXAM: VITAL SIGNS: Reviewed GENERAL: Well-developed in no acute distress. HEENT: No sclera icterus. Extraocular movements grossly intact. Moist buccal mucosa. Head is atraumatic, normocephalic. Hears conversational speech. No nasal drainage. NECK: Supple without lymphadenopathy. CHEST: Non-labored respirations and equal bilateral excursions. CARDIOVASCULAR: Palpable 2+ radial pulses. ABDOMEN: Mildly Distended. tenderness palpation of lower abdomen. Incisional dressings clean dry and intact MUSCULOSKELETAL: No clubbing or cyanosis. NEUROLOGIC: No focal or lateralizing signs. Cranial nerves II through XII grossly intact. PSYCH: Appropriate affect. Alert and oriented to person, place and time. SKIN: Well perfused. Good skin turgor. ASSESSMENT: 1. Small bowel obstruction due to adhesion, lower pelvis left lower quadrant 2. Expected ileus due to physical inactivity 3. Acute renal failure 4. Sigmoid diverticulosis 5. Left lower quadrant abdominal pain 6. Internal hernia pelvis PLAN: -Continue ground diet -Continue TPN -Increase activity level if possible -Continue pain management -Continue Mylicon gas drops -Continue pain management -Continue supportive care Physician Medical Liaison note has been reviewed by physician. Signing provider agrees with the documented findings, assessment, and plan of care. Objective - Vital Signs Vital signs: Vital Signs Temp 98.2 F 08/16/23 11:05 Pulse 98 08/16/23 14:00 Resp 20 08/16/23 11:05 BP 155/70 08/16/23 11:05 Pulse Ox 99 08/16/23 11:05 FiO2 Intake & Output 08/15/23 08/16/23 08/16/23 18:59 06:59 18:59 Intake Total 480 1033 Output Total 700 1200 Balance -220 -167 Weight 79.5 kg 84.5 kg 84.5 kg Intake: Intake, IV Titration 1033 Amount Mvi, Adult No.4 with Vit 1033 K 10 ml Trace (Conc-1Ml/ Dose) 1 ml Potassium Chloride 40 meq Magnesium Sulfate gm 1 gm In Amino Acid 5%-D20w+Lytes*E* 1, 000 ml @ 48 mls/hr IV . [id number] [facility] Rx#:[id number] Oral 480 Output: Urine 700 1200 Other: Voiding Method Indwelling Catheter Indwelling Catheter Indwelling Catheter # Bowel Movements 1 1 - Labs CBC & Chem 7: 08/16/23 10:05 08/16/23 10:05 Labs: Abnormal Lab Results - Last 24 Hours (Table) 08/15/23 08/15/23 08/15/23 Range/Units 08:16 08:16 23:59 WBC (3.8-10.6) k/uL RBC (4.30-5.90) m/uL Hgb (13.0-17.5) gm/dL Hct (39.0-53.0) % Plt Count (150-450) k/uL Neutrophils # (1.3-7.7) k/uL Monocytes # (0-1.0) k/uL Sodium (137-145) mmol/L Carbon Dioxide (22-30) mmol/L BUN (9-20) mg/dL Creatinine (0.66-1.25) mg/dL Glucose (74-99) mg/dL POC Glucose (mg/dL) 126 H (70-110) mg/dL Calcium (8.4-10.2) mg/dL Iron 12 L (65-175) UG/DL TIBC 175 L (228-460) UG/DL % Saturation 6.86 L (15.00-50.00) Transferrin 125.0 L (204.0-354.0) mg/dL Free [place] LC, Quant 11.59 H (0.33-1.94) mg/dL Free [place] LC, Quant 12.81 H (0.57-2.63) mg/dL 08/16/23 08/16/23 08/16/23 Range/Units 06:05 10:05 10:05 WBC 15.4 H (3.8-10.6) k/uL RBC 2.88 L (4.30-5.90) m/uL Hgb 8.3 L (13.0-17.5) gm/dL Hct 25.8 L (39.0-53.0) % Plt Count 477 H (150-450) k/uL Neutrophils # 12.4 H (1.3-7.7) k/uL Monocytes # 1.1 H (0-1.0) k/uL Sodium 130 L (137-145) mmol/L Carbon Dioxide 20 L (22-30) mmol/L BUN 35 H (9-20) mg/dL Creatinine 2.57 H (0.66-1.25) mg/dL Glucose 107 H (74-99) mg/dL POC Glucose (mg/dL) 111 H (70-110) mg/dL Calcium 7.7 L (8.4-10.2) mg/dL Iron (65-175) UG/DL TIBC (228-460) UG/DL % Saturation (15.00-50.00) Transferrin (204.0-354.0) mg/dL Free [place] LC, Quant (0.33-1.94) mg/dL Free [place] LC, Quant (0.57-2.63) mg/dL 08/16/23 Range/Units 11:58 WBC (3.8-10.6) k/uL RBC (4.30-5.90) m/uL Hgb (13.0-17.5) gm/dL Hct (39.0-53.0) % Plt Count (150-450) k/uL Neutrophils # (1.3-7.7) k/uL Monocytes # (0-1.0) k/uL Sodium (137-145) mmol/L Carbon Dioxide (22-30) mmol/L BUN (9-20) mg/dL Creatinine (0.66-1.25) mg/dL Glucose (74-99) mg/dL POC Glucose (mg/dL) 123 H (70-110) mg/dL Calcium (8.4-10.2) mg/dL Iron (65-175) UG/DL TIBC (228-460) UG/DL % Saturation (15.00-50.00) Transferrin (204.0-354.0) mg/dL Free [place] LC, Quant (0.33-1.94) mg/dL Free [place] LC, Quant (0.57-2.63) mg/dL
[2023-08-16 18:06] LABS: Glucose,Whole Blood 127 mg/dL (70-110)
[2023-08-16 23:05] LABS: Prealbumin 13.5 mg/dL (18.0-42.0)
[2023-08-16 23:51] LABS: Protein, Total 4.6 g/dL (6.2-8.2)
[2023-08-16 23:59] LABS: Glucose,Whole Blood 107 mg/dL (70-110)
[2023-08-17 06:04] LABS: Glucose,Whole Blood 91 mg/dL (70-110)
[2023-08-17 09:35] LABS: Ionized Calcium 4.8 mg/dL (4.5-5.3)
[2023-08-17 10:02] LABS: ALT 22 U/L (4-49); AST 32 U/L (17-59); African American GFR (CKD) 25 (>60 ml/min/1.73 sqM); Alkaline Phosphatase 248 U/L (38-126); Anion Gap 2 mmol/L; Blood Urea Nitrogen 37 mg/dL (9-20); Calcium 7.8 mg/dL (8.4-10.2); Carbon Dioxide 21 mmol/L (22-30); Chloride 107 mmol/L (98-107); Glucose 100 mg/dL (74-99); Non-African American GFR(CKD) 22 (>60 ml/min/1.73 sqM); Phosphorus 4.5 mg/dL (2.5-4.5); Potassium 5.6 mmol/L (3.5-5.1); Sodium 130 mmol/L (137-145); Total Bilirubin 0.3 mg/dL (0.2-1.3); Total Protein 4.9 g/dL (6.3-8.2)
--- NOTE | 2023-08-17 10:30 | P.PN ---
Subjective Progress Note Date: 08/17/23 Progress note Date of service 08/17/[address] Griffin. Patient seen evaluated the bedside Nursing staff students trying to feed him with no appetite. He is awake alert. Vital sign temperature 97.8 F oral heart rate ranging between 851 09. Respiratory rate 18 nonlabored. Blood pressure 175/89 mean blood pressure 117, oxygen saturation 92 on 2.5 L. Chemistry: Potassium is high 5.6 not seen yet by nephrology for the possibility of dialysis his creatinine 2.57 and BUN 37. Is currently excised 21 and sodium 130. Calcium 7.8 with ionized calcium 4.8. He had elevated alkaline phosphatase 248 C-reactive protein is up elevated 8, total protein 4.9 and albumin is 2 and a prealbumin was low 13.5 with a normal range between 1842. Patient on TPN and Intralipid intravenous. On physical examination: Head was normocephalic atraumatic with a chronic left facial drooping and drooping of the eyelid. Natural teeth. Neck was supple no JVD no thyromegaly no lymphadenopathy. Chest: Respiratory normal breath sounds no exacerbation, increased anteroposterior diameter with a history of asthma COPD no exacerbation. Heart: Compensated normal S1-S2 no gallop sinus rhythm with a history of inte rmittent exacerbation was tachycardic. Abdomen still distended tender on palpation in the 4 quadrant worse on the left lower quadrant. Followed by Dr. Pinzon surgeon and is status post removal of adhesions with the robotic exploratory laparoscopy. He had a positive bowel sounds. Weight 84.5 kg, indwelling catheter, 08/17/2023 at 7 AM negative balance 0575, mild edema of the lower extremities. Neurologically patient no new changes no delirium, confused intermittently with the underlying dementia with cognitive function impairment prior to the event of coming to the hospital. Assessment: 1. Still patient and ileus no BM no flatus distended abdomen and tympanitic but positive bowel sounds 2. Patient started feeding however patient minimal intake and helped with the nursing statement for feeding. 3. Status post small bowel obstruction followed by robotic laparoscopic procedure with lysis of adhesion 4. Status post surgery ileus and still an ileus followed by Dr. Pinzon 5. Prolongation of starvation and he is currently on TPN and Intralipid IV infusion. 6. Patient developed acute kidney injury on the top of chronic kidney disease stage III, followed by insertion of dialysis catheter in the right subclavian by Dr. Shannon vascular surgeon followed by hemodialysis so far did not seen yet by nephrology to evaluate for further hemodialysis or not 7. He had laboratory abnormalities with progressive increase in WBC and C- reactive protein, and anemia. 8. History of shortness of breath with COPD and asthma followed by Dr. Orozco. 9. Patient with history of L4 L L5 discogenic disease and spinal stenosis and difficulty walking 10. Severe protein calorie deficiency with the prealbumin 13.5 on the TPN. Plan: 1. Reviewed the note of consulting physicians Will follow the recommendation of Dr. Pinzon, Dr. Dee nephrology, Dr. Simmons infectious disease. Objective - Vital Signs Vital signs: Vital Signs Temp 97.8 F 08/17/23 08:00 Pulse 84 08/17/23 09:03 Resp 18 08/17/23 08:00 BP 175/89 08/17/23 08:00 Pulse Ox 92 L 08/17/23 08:53 FiO2 Intake & Output 08/16/23 08/17/23 08/17/23 18:59 06:59 18:59 Intake Total 480 1006.4 Output Total 1425 Balance 480 -418.6 Weight 84.5 kg Intake: Intake, IV Titration 1006.4 Amount Mvi, Adult No.4 with Vit 1006.4 K 10 ml Trace (Conc-1Ml/ Dose) 1 ml Potassium Chloride 40 meq Magnesium Sulfate gm 1 gm In Amino Acid 5%-D20w+Lytes*E* 1, 000 ml @ 48 mls/hr IV . [id number] [facility] Rx#:[id number] Oral 480 Output: Urine 1425 Other: Voiding Method Indwelling Catheter Indwelling Catheter Indwelling Catheter # Bowel Movements 1 - Labs CBC & Chem 7: 08/16/23 10:05 08/17/23 08:52 Labs: Abnormal Lab Results - Last 24 Hours (Table) 08/16/23 08/16/23 08/16/23 Range/Units 10:05 10:05 10:05 WBC 15.4 H (3.8-10.6) k/uL RBC 2.88 L (4.30-5.90) m/uL Hgb 8.3 L (13.0-17.5) gm/dL Hct 25.8 L (39.0-53.0) % Plt Count 477 H (150-450) k/uL Neutrophils # 12.4 H (1.3-7.7) k/uL Monocytes # 1.1 H (0-1.0) k/uL Sodium 130 L (137-145) mmol/L Potassium (3.5-5.1) mmol/L Carbon Dioxide 20 L (22-30) mmol/L BUN 35 H (9-20) mg/dL Creatinine 2.57 H (0.66-1.25) mg/dL Glucose 107 H (74-99) mg/dL POC Glucose (mg/dL) (70-110) mg/dL Calcium 7.7 L (8.4-10.2) mg/dL Alkaline Phosphatase (38-126) U/L C-Reactive Protein (<1.0) mg/dL Total Protein (6.3-8.2) g/dL Total Protein (PEP) 4.6 L (6.2-8.2) g/dL Albumin (3.5-5.0) g/dL Prealbumin 13.5 L (18.0-42.0) mg/dL Triglycerides 165.00 H (0.00-149.00) mg/dL 08/16/23 08/16/23 08/17/23 Range/Units 11:58 18:05 08:52 WBC (3.8-10.6) k/uL RBC (4.30-5.90) m/uL Hgb (13.0-17.5) gm/dL Hct (39.0-53.0) % Plt Count (150-450) k/uL Neutrophils # (1.3-7.7) k/uL Monocytes # (0-1.0) k/uL Sodium 130 L (137-145) mmol/L Potassium 5.6 H (3.5-5.1) mmol/L Carbon Dioxide 21 L (22-30) mmol/L BUN 37 H (9-20) mg/dL Creatinine 2.57 H (0.66-1.25) mg/dL Glucose 100 H (74-99) mg/dL POC Glucose (mg/dL) 123 H 127 H (70-110) mg/dL Calcium 7.8 L (8.4-10.2) mg/dL Alkaline Phosphatase 248 H (38-126) U/L C-Reactive Protein 8.0 H (<1.0) mg/dL Total Protein 4.9 L (6.3-8.2) g/dL Total Protein (PEP) (6.2-8.2) g/dL Albumin 2.0 L (3.5-5.0) g/dL Prealbumin (18.0-42.0) mg/dL Triglycerides (0.00-149.00) mg/dL
--- NOTE | 2023-08-17 10:57 | P.PN ---
Subjective Patient is seen in follow-up for acute kidney injury on chronic kidney disease, currently hemodialysis dependent. Receiving TPN. On 2 L nasal cannula. Hemodynamically stable. Last dialysis August 12, 2023. Nonoliguric. Poor historian. Vital signs are stable. General: No acute distress. HEENT: Head exam is unremarkable. LUNGS: No audible rhonchi or wheezes. HEART: Rate and Rhythm are regular. ABDOMEN: Tender to touch. EXTREMITITES: No edema. Objective - Vital Signs Vital signs: Vital Signs Temp 97.8 F 08/17/23 08:00 Pulse 84 08/17/23 09:03 Resp 18 08/17/23 08:00 BP 175/89 08/17/23 08:00 Pulse Ox 92 L 08/17/23 08:53 FiO2 Intake & Output 08/16/23 08/17/23 08/17/23 18:59 06:59 18:59 Intake Total 480 1006.4 0 Output Total 1425 1075 Balance 480 -418.6 -1075 Weight 84.5 kg Intake: Intake, IV Titration 1006.4 Amount Mvi, Adult No.4 with Vit 1006.4 K 10 ml Trace (Conc-1Ml/ Dose) 1 ml Potassium Chloride 40 meq Magnesium Sulfate gm 1 gm In Amino Acid 5%-D20w+Lytes*E* 1, 000 ml @ 48 mls/hr IV . [id number] [facility] Rx#:[id number] Oral 480 0 Output: Urine 1425 1075 Other: Voiding Method Indwelling Catheter Indwelling Catheter Indwelling Catheter # Bowel Movements 1 - Labs CBC & Chem 7: 08/16/23 10:05 08/17/23 08:52 Labs: Abnormal Lab Results - Last 24 Hours (Table) 08/16/23 08/16/23 08/16/23 Range/Units 10:05 10:05 10:05 WBC 15.4 H (3.8-10.6) k/uL RBC 2.88 L (4.30-5.90) m/uL Hgb 8.3 L (13.0-17.5) gm/dL Hct 25.8 L (39.0-53.0) % Plt Count 477 H (150-450) k/uL Neutrophils # 12.4 H (1.3-7.7) k/uL Monocytes # 1.1 H (0-1.0) k/uL Sodium 130 L (137-145) mmol/L Potassium (3.5-5.1) mmol/L Carbon Dioxide 20 L (22-30) mmol/L BUN 35 H (9-20) mg/dL Creatinine 2.57 H (0.66-1.25) mg/dL Glucose 107 H (74-99) mg/dL POC Glucose (mg/dL) (70-110) mg/dL Calcium 7.7 L (8.4-10.2) mg/dL Alkaline Phosphatase (38-126) U/L C-Reactive Protein (<1.0) mg/dL Total Protein (6.3-8.2) g/dL Total Protein (PEP) 4.6 L (6.2-8.2) g/dL Albumin (3.5-5.0) g/dL Prealbumin 13.5 L (18.0-42.0) mg/dL Triglycerides 165.00 H (0.00-149.00) mg/dL 08/16/23 08/16/23 08/17/23 Range/Units 11:58 18:05 08:52 WBC (3.8-10.6) k/uL RBC (4.30-5.90) m/uL Hgb (13.0-17.5) gm/dL Hct (39.0-53.0) % Plt Count (150-450) k/uL Neutrophils # (1.3-7.7) k/uL Monocytes # (0-1.0) k/uL Sodium 130 L (137-145) mmol/L Potassium 5.6 H (3.5-5.1) mmol/L Carbon Dioxide 21 L (22-30) mmol/L BUN 37 H (9-20) mg/dL Creatinine 2.57 H (0.66-1.25) mg/dL Glucose 100 H (74-99) mg/dL POC Glucose (mg/dL) 123 H 127 H (70-110) mg/dL Calcium 7.8 L (8.4-10.2) mg/dL Alkaline Phosphatase 248 H (38-126) U/L C-Reactive Protein 8.0 H (<1.0) mg/dL Total Protein 4.9 L (6.3-8.2) g/dL Total Protein (PEP) (6.2-8.2) g/dL Albumin 2.0 L (3.5-5.0) g/dL Prealbumin (18.0-42.0) mg/dL Triglycerides (0.00-149.00) mg/dL Assessment and Plan Plan: Assessment: 1. Acute kidney injury secondary to hemodynamic ATN. No hydronephrosis noted on CAT scan. Started on hemodialysis August 10, 2023. Last dialysis August 12, 2023. Creatinine stable at 2.57. Nonoliguric. 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 Heme/onc following. 2. Chronic kidney disease stage IIIb with baseline creatinine 1.3-1.5 secondary to nephrosclerosis. 3. Partial small bowel obstruction. Receiving TPN. Surgery following. 4. Metabolic acidosis secondary to acute kidney injury and IV fluids. Better. 5. Atrial tachycardia status post Cardizem drip. On metoprolol. Cardiology following. 6. Anemia. Iron deficiency noted. Receiving IV iron. 7. Hyperkalemia secondary to acute kidney injury. Plan: Maintain TPN. Avoid nephrotoxins. Hold off on hemodialysis. Continue to assess on daily basis. If no further hemodialysis will be needed, will discontinue permacath. Continue to monitor renal function and urine output. Maintain Dow catheter. Preserved EF noted on echo. Restrict potassium in TPN feeds. Lokelma 10 g once today.
--- NOTE | 2023-08-17 11:37 | P.PN ---
Subjective Progress Note Date: 08/17/23 This is a 83-year-old male patient with a known history of coronary artery disease with previous stent placement, dementia, hypertension, hyperlipidemia, hypothyroidism, non-smoker who presented here to the emergency room on 08/01/2023 with abdominal pain. He had been followed by surgical services. He did have a nasogastric tube which had approximately 2100 cc output once put in. However the patient inadvertently pulled it out last night. Today he had developed increased abdominal discomfort, tachycardia and shortness of breath. We were consulted for possible transfer to the ICU. He is seen today on the regular medical floor. He is awake and alert. He denies any pain at rest. He is tender to palpation. He is tachycardic, sinus. Currently afebrile. Continue O2 saturations in the mid 90s on 3 L/min per nasal cannula. Blood pressure stable. Blood cultures reveal no growth. White count 8.5. Hemoglobin 12.6. Platelets 373. Sodium 139. Potassium 4.6. Bicarb 14. BUN 34. Creatinine 3.11. Glucose 88. Amylase 73. Lipase 49. CT scan of the abdomen today revealed bowel obstruction pattern. Small amount of free fluid. Chest x-ray reveals no acute cardiopulmonary process. A nasogastric tube has been reinserted and in good position. He is currently on Zosyn. Patient was seen and examined today on 08/05/2023, patient is doing much better today compared to the last 2 days, less abdominal pain, no nausea no vomiting, continues to have nasogastric tube in place.WBC count is 9.9 hemoglobin 11.3 basic metabolic profile is normal however his renal functioning is worse with BUN up to 69 creatinine 5.60, and that is being addressed by nephrology on the case. His acute kidney injury is felt to be related to hemodynamic ATN, no hydronephrosis on CT of the abdomen, patient does have history of chronic kidney disease stage IIIb. Patient is on Cardizem drip now for atrial tachycardia. And cardiology is following Reevaluate today on 08/06/23, patient pulled his nasogastric tube yesterday, continues to have abdominal distention and abdominal pain. Apparently multiple attempts by nurses to place the nasogastric tube were unsuccessful. Surgery is to address the nasogastric tube placement and or exploratory laparotomy on this patient to relieve his bowel obstruction.WBC count today is 8.4 hemoglobin 10.4, basic metabolic profile is normal renal profile is worsening with a BUN of 85 creatinine 6.08 and his renal profile is being addressed by nephrology on the case Patient was reevaluated today on 08/07/2023, continues to have abdominal pain, continues to have small bowel obstruction, and now he is developing worsening renal disease. From the looks of it, patient may be heading towards dialysis. Patient was seen by Dr. Truong today, and I believe he is recommending exploratory laparotomy after he is seen by Dr. Goodman tomorrow. Continues to have decent urine output, 600 cc in the last 8 hours. Could not have a nasogastric tube placed back, patient is getting in Progress note dated August 08, 2023. 83-year-old male seen in room 378. The patient is currently on 2 L of oxygen. The patient is getting dextrose with half-normal saline at 100 cc an hour. He does have a significantly tender abdomen, anytime he burps, or coughs. Also, he is tender on palpation. Current labs include a white count 9.5, hemoglobin 11.4, hematocrit 36, and a platelet count of 343,000. Sodium 143, potassium 4.2, chlorides 107, CO2 27, BUN 93, creatinine 5.62. Calcium is 8, with a phosphorus of 5.4. Glucose is 97. Blood cultures are negative. Progress note dated August 09, 2023. 83-year-old male seen today in room 378. The patient is currently on 3 L of oxygen. NG tube remains in place. He is getting D5 with half-normal saline at 100 cc an hour. The patient has significant abdominal pain on palpation of the abdomen. Labs today include a white count 9.3, hemoglobin 10.8, hematocrit 33.9, and a platelet count of 355,000. Sodium 140, potassium 4.4, chlorides 110, CO2 22, BUN 87, and creatinine 5.53. Glucose is 116. Albumin is 2. All microbiologic sampling is thus far negative. Progress note dated August 10, 2023. 83-year-old male seen again in room 378. The patient again pulled out his NG tube. The patient is on room air. The patient is getting TPN at 30 cc an hour. The patient still has significant abdominal discomfort on palpation. I count 10.5, hemoglobin 10.7, hematocrit 33.8, and platelet count is 384,000. Sodium 140, potassium 3.8, chlorides 107, CO2 20, anion gap 13, BUN 92, creatinine 5.60. Glucose is 123. Magnesium 1.9. Phosphorus 5.2. Progress note dated August 11, 2023. 83-year-old male seen today in room 377. Currently, the patient is receiving hemodialysis. He is on room air. The patient is a DO NOT RESUSCITATE patient. He is getting TPN at 48 cc an hour. He continues on Eraxis, and Zosyn. No new laboratory data today as yet, other than a glucose of 106. Chest x-ray from yesterday shows some mild streaky basilar atelectasis. Progress note dated August 12, 2023. 83-year-old male, seen in room 377. Currently, the patient is on room air. The patient is getting TPN at 48 cc an hour. He continues on Eraxis, and meropenem. Current labs include a sodium 133, potassium 3.2, chlorides 102, CO2 24, BUN 37, creatinine 2.53. Glucose is 128. Calcium 7.5. Albumin 1.9. The patient does not appear to be as tender, on palpation of the abdomen, as he has been, on previous days. Progress note dated August 13, 2023. 83-year-old male seen today in room 377. The patient continues on room air. S aturations are 94%. The rest of his vital signs are relatively stable. The patient continues on TPN at 48 cc an hour, and D5.45, at 100 cc an hour. He also continues on meropenem, and the antifungal, and Eraxis. Current laboratory data includes a sodium 131, potassium 3.3, chlorides 101, CO2 25, BUN 23, creatinine 1.96. Glucose is 115. Albumin is 1.9. Wound cultures were positive for Enterobacter aerogenes, Marybeth albicans, and Enterococcus faecalis. The patient is seen today August 14, 2023 in follow-up on the regular medical floor. He is currently resting in bed. He denies any worsening abdominal pain. He is maintaining O2 saturations in the 90s on room air. He has D5 W and 0.45 normal saline at 100 MLS per hour. He remains on TPN at 40 MLS per hour. Wound cultures were positive for Enterobacter aerogenes, Marybeth albicans, Enterococcus faecalis. White count 11.4. Hemoglobin 9.5. Platelets 358. Sodium 130. Potassium 3.8. Bicarb 25. BUN 28. Creatinine 2.29. Glucose 98. C-reactive protein 6.5. He is continued on meropenem and Eraxis. Continued on bronchodilators. Heparin for DVT prophylaxis. On today's evaluation of 08/15/2023, the patient is being seen for a follow-up. The patient had a complicated bowel obstruction with left lower quadrant pain. The patient underwent a robotic laparoscopic lysis of adhesions and decompression enterostomy. Intraoperatively, the patient was found to have severe sigmoid diverticulosis without diverticulitis. There was severe small bowel diverticulosis involving the jejunum and there was volvulus in the right lower quadrant that was reduced. There was mesenteric adhesions and multiple pelvic adhesions involving the sigmoid colon that was released. Decompression of the bowel was done. Intra-abdominal cultures turned out to be positive for Enterobacter and Enterococcus faecium. As such, the patient could have had a component of peritonitis. The patient is currently on broad-spectrum antibiotics. The patient is currently on a combination of meropenem and Eraxis. The patient is also on TPN for nutritional support. He is resting comfortably in bed. No signs of any respiratory distress. On 2 L of oxygen by nasal cannula with a pulse ox of 98%. The blood work shows a WBC count 13.9 with a hemoglobin 9.1 and a platelet count of 453. BUN is at 32 with a creatinine of 2.6 and the patient been seen by nephrology. The patient is undergoing dialysis and last dialysis was done on 08/12/2023 and a dialysis currently on hold and the renal function is being monitored very closely. Dow catheter is in place. On today's evaluation of 08/16/2023, I am seeing the patient for a follow-up. The patient is resting comfortably in bed. Continues to have some abdominal pain. This was discussed with the general surgical team and it was thought that his abdominal exam was essentially benign. The patient has bowel sounds and the patient is also passing mucoid bowel movements. White cell count of 15.4 with a hemoglobin of 8.3. There is some mild uptrending of his white cell count count over the past 48 hours. Platelet count is at 477, BUN is 35 with a creatinine of 2.5 which is essentially stable compared to yesterday and a sodium levels at 130. He remains on Eraxis and meropenem. He remains on TPN for nutritional support. No signs of any respiratory distress and the patient is on 2 L of oxygen by nasal cannula with a pulse ox of 99%. General surgery remains on the case. On today's evaluation of 08/17/2023, the patient is taking some clear liquid diet and he is also given some soft mechanically managed diet. He is stooling. However, he is having some ongoing abdominal tenderness on examination. Bowel sounds are present. Surgical wounds that are directing and intact. No resp iratory distress. Renal function remains impaired with a BUN of 37 and a creatinine of 2.57 and a sodium levels at 130 with a potassium level of 5.6. The patient is being seen by nephrology. He has sustained an acute kidney injury on top of his chronic kidney failure. He is still on TPN for nutritional support. His last hemodialysis was on on 08/12/2023. Nephrology on the case. The patient remains on Eraxis and IV meropenem. Afebrile. Hemodynamically stable. Currently on oxygen at 2.5 L. No signs of any respiratory distress. He is a poor historian in general. Objective - Vital Signs Vital signs: Vital Signs Temp 97.8 F 08/17/23 08:00 Pulse 84 08/17/23 09:03 Resp 18 08/17/23 08:00 BP 175/89 08/17/23 08:00 Pulse Ox 92 L 08/17/23 08:53 FiO2 Intake & Output 08/16/23 08/17/23 08/17/23 18:59 06:59 18:59 Intake Total 480 1006.4 Output Total 1425 Balance 480 -418.6 Weight 84.5 kg Intake: Intake, IV Titration 1006.4 Amount Mvi, Adult No.4 with Vit 1006.4 K 10 ml Trace (Conc-1Ml/ Dose) 1 ml Potassium Chloride 40 meq Magnesium Sulfate gm 1 gm In Amino Acid 5%-D20w+Lytes*E* 1, 000 ml @ 48 mls/hr IV . [id number] [facility] Rx#:[id number] Oral 480 Output: Urine 1425 Other: Voiding Method Indwelling Catheter Indwelling Catheter Indwelling Catheter # Bowel Movements 1 - Exam An 83-year-old male patient, on room air, no acute distress. No respiratory difficulty. The patient is currently on 2 L of oxygen by nasal cannula. HEENT examination is grossly unremarkable. Mucous membranes are moist. No oral lesions. Neck supple. Full range of motion. No adenopathy thyromegaly or neck vein distention. Cardiovascular examination reveals regular rhythm rate. S1-S2 normal. No S3 or S4. No discernible murmur noted. Lungs reveal clear breath sounds. Breath sounds are equal bilaterally. No adventitious lung sounds including wheezes rhonchi or crackles. Abdomen is tender on palpation. No bowel sounds. Hypoactive bowel sounds. Surgical wound site are all dry clean and intact. Extremities are intact. No cyanosis clubbing or edema. Skin is without rash or lesion. Neurologic examination is brief but nonfocal. - Labs CBC & Chem 7: 08/16/23 10:05 08/17/23 08:52 Labs: Abnormal Lab Results - Last 24 Hours (Table) 08/16/23 08/16/23 08/16/23 Range/Units 10:05 10:05 10:05 WBC 15.4 H (3.8-10.6) k/uL RBC 2.88 L (4.30-5.90) m/uL Hgb 8.3 L (13.0-17.5) gm/dL Hct 25.8 L (39.0-53.0) % Plt Count 477 H (150-450) k/uL Neutrophils # 12.4 H (1.3-7.7) k/uL Monocytes # 1.1 H (0-1.0) k/uL Sodium 130 L (137-145) mmol/L Carbon Dioxide 20 L (22-30) mmol/L BUN 35 H (9-20) mg/dL Creatinine 2.57 H (0.66-1.25) mg/dL Glucose 107 H (74-99) mg/dL POC Glucose (mg/dL) (70-110) mg/dL Calcium 7.7 L (8.4-10.2) mg/dL Total Protein (PEP) 4.6 L (6.2-8.2) g/dL Prealbumin 13.5 L (18.0-42.0) mg/dL Triglycerides 165.00 H (0.00-149.00) mg/dL 08/16/23 08/16/23 Range/Units 11:58 18:05 WBC (3.8-10.6) k/uL RBC (4.30-5.90) m/uL Hgb (13.0-17.5) gm/dL Hct (39.0-53.0) % Plt Count (150-450) k/uL Neutrophils # (1.3-7.7) k/uL Monocytes # (0-1.0) k/uL Sodium (137-145) mmol/L Carbon Dioxide (22-30) mmol/L BUN (9-20) mg/dL Creatinine (0.66-1.25) mg/dL Glucose (74-99) mg/dL POC Glucose (mg/dL) 123 H 127 H (70-110) mg/dL Calcium (8.4-10.2) mg/dL Total Protein (PEP) (6.2-8.2) g/dL Prealbumin (18.0-42.0) mg/dL Triglycerides (0.00-149.00) mg/dL Assessment and Plan Plan: Abdominal pain in a patient found to have a bowel obstruction. The patient had bowel obstruction and intraoperatively, the patient was found to have severe sigmoid diverticulosis without diverticulitis, severe small bowel diverticulosis involving the jejunum and volvulus of the right lower quadrant that was reduced and mesenteric adhesions with multiple pelvic adhesions involving the sigmoid colon that were released. Decompression of the bowel was done. The patient has positive intra-abdominal cultures consistent with peritonitis. The patient has positive Enterobacter and Enterococcus faecium currently on a combination of Eraxis and meropenem. The patient receiving TPN for nutritional support. General surgery is on the case. Condition is essentially unchanged compared to yesterday. The patient remains on the same antibiotic coverage. Has bowel sounds and passing some bowel movement activity. The patient is tolerating some soft diet although his oral intake remains quite diminished. Acute hypoxemic respiratory failure secondary to above, history of COPD but is a lifelong non-smoker and the patient is currently on 2 L of oxygen by nasal cannula Acute on chronic kidney injury, received hemodialysis the last hemodialysis session was on 08/12/2023, currently being monitored by nephrology. Creatinine is stable compared to yesterday, elevated potassium level that is being managed by nephrology. TPN potassium supplements need to be adjusted. Mild leukocytosis History of coronary disease with previous stent placement Hypertension Hyperlipidemia Hypothyroidism Dementia Lifelong non-smoker Plan: Monitor the white cell count Monitor potassium level and adjusted to potassium supplements through the TPN Monitor creatinine which is stable on today's evaluation, nephrology on the case Continue TPN for nutritional support General surgery is on the case Remains on meropenem and Eraxis Surgical services are following Physical therapy Monitor electrolytes DNR CODE STATUS We will continue to follow
[2023-08-17] MEDS: SODIUM ZIRCONIUM CYCLOSILICATE 10 GM PACKET PO ONE (11:49)
[2023-08-17 12:40] LABS: Glucose,Whole Blood 115 mg/dL (70-110)
--- NOTE | 2023-08-17 12:52 | P.PN ---
Subjective Progress Note Date: 08/17/23 CHIEF COMPLAINT: Abdominal pain HISTORY OF PRESENT ILLNESS: Patient reports that he is feeling better today. He has less pain. Denies any nausea or vomiting. He reports eating a small amount. Patient did have bowel movements yesterday. He reports having flatus. Patient with small bowel obstruction status post robotic assisted laparoscopic lysis of adhesions and decompressive enterostomy, POD#8. Afebrile. WBC 15 yesterday sodium is 130 potassium is 5.6 creatinine 2.57 PHYSICAL EXAM: VITAL SIGNS: Reviewed GENERAL: Well-developed in no acute distress. HEENT: No sclera icterus. Extraocular movements grossly intact. Moist buccal mucosa. Head is atraumatic, normocephalic. Hears conversational speech. No nasal drainage. NECK: Supple without lymphadenopathy. CHEST: Non-labored respirations and equal bilateral excursions. CARDIOVASCULAR: Palpable 2+ radial pulses. ABDOMEN: Mildly Distended. tenderness palpation of lower abdomen. Incisional dressings clean dry and intact MUSCULOSKELETAL: No clubbing or cyanosis. NEUROLOGIC: No focal or lateralizing signs. Cranial nerves II through XII grossly intact. PSYCH: Appropriate affect. Alert and oriented to person, place and time. SKIN: Well perfused. Good skin turgor. ASSESSMENT: 1. Small bowel obstruction due to adhesion, lower pelvis left lower quadrant 2. Expected ileus due to physical inactivity 3. Acute renal failure 4. Sigmoid diverticulosis 5. Left lower quadrant abdominal pain 6. Internal hernia pelvis PLAN: -Patient's of physical debility, hyponatremia and acute kidney injury agitating abdominal ileus -Continue to monitor -Continue to correct electrolytes -Continue ground diet -Continue TPN -Increase activity level if possible -Continue pain management -Continue Mylicon gas drops -Continue supportive care Physician Offal Baler note has been reviewed by physician. Signing provider agrees with the documented findings, assessment, and plan of care. Objective - Vital Signs Vital signs: Vital Signs Temp 98.2 F 08/17/23 11:47 Pulse 86 08/17/23 12:03 Resp 18 08/17/23 11:47 BP 159/70 08/17/23 11:47 Pulse Ox 97 08/17/23 11:47 FiO2 Intake & Output 08/16/23 08/17/23 08/17/23 18:59 06:59 18:59 Intake Total 480 1006.4 0 Output Total 1425 1075 Balance 480 -418.6 -1075 Weight 84.5 kg Intake: Intake, IV Titration 1006.4 Amount Mvi, Adult No.4 with Vit 1006.4 K 10 ml Trace (Conc-1Ml/ Dose) 1 ml Potassium Chloride 40 meq Magnesium Sulfate gm 1 gm In Amino Acid 5%-D20w+Lytes*E* 1, 000 ml @ 48 mls/hr IV . [id number] [facility] Rx#:[id number] Oral 480 0 Output: Urine 1425 1075 Other: Voiding Method Indwelling Catheter Indwelling Catheter Indwelling Catheter # Bowel Movements 1 - Labs CBC & Chem 7: 08/16/23 10:05 08/17/23 08:52 Labs: Abnormal Lab Results - Last 24 Hours (Table) 08/16/23 08/16/23 08/16/23 Range/Units 10:05 10:05 18:05 Sodium (137-145) mmol/L Potassium (3.5-5.1) mmol/L Carbon Dioxide (22-30) mmol/L BUN (9-20) mg/dL Creatinine (0.66-1.25) mg/dL Glucose (74-99) mg/dL POC Glucose (mg/dL) 127 H (70-110) mg/dL Calcium (8.4-10.2) mg/dL Alkaline Phosphatase (38-126) U/L C-Reactive Protein (<1.0) mg/dL Total Protein (6.3-8.2) g/dL Total Protein (PEP) 4.6 L (6.2-8.2) g/dL Albumin (3.5-5.0) g/dL Prealbumin 13.5 L (18.0-42.0) mg/dL Triglycerides 165.00 H (0.00-149.00) mg/dL 08/17/23 08/17/23 Range/Units 08:52 12:38 Sodium 130 L (137-145) mmol/L Potassium 5.6 H (3.5-5.1) mmol/L Carbon Dioxide 21 L (22-30) mmol/L BUN 37 H (9-20) mg/dL Creatinine 2.57 H (0.66-1.25) mg/dL Glucose 100 H (74-99) mg/dL POC Glucose (mg/dL) 115 H (70-110) mg/dL Calcium 7.8 L (8.4-10.2) mg/dL Alkaline Phosphatase 248 H (38-126) U/L C-Reactive Protein 8.0 H (<1.0) mg/dL Total Protein 4.9 L (6.3-8.2) g/dL Total Protein (PEP) (6.2-8.2) g/dL Albumin 2.0 L (3.5-5.0) g/dL Prealbumin (18.0-42.0) mg/dL Triglycerides (0.00-149.00) mg/dL
--- NOTE | 2023-08-17 14:15 | P.PN ---
Subjective Progress Note Date: 08/17/23 Principal diagnosis: Reason for follow-up is fever likely abdominal source Patient is a 83-year-old male with a past medical history significant for coronary disease COPD dementia hypertension hyperlipidemia reflux presenting to the hospital for evaluation of abdominal pain bloating has been diagnosed with the distal small bowel obstruction developing a fever concerning for possible abdominal sepsis prompting this consultation.Patient is status post robotic assisted laparoscopic lysis of adhesion extensive and decompressive enterostomy that was completed on 08/08/2023 On today's evaluation that is 08/17/2023,the patient remains to be afebrile, patient is on 2 L nasal cannula supplemental oxygen and denies any shortness of breath no chest pain or cough.Patient denies having any nausea or vomiting, still complains of abdominal pain did not mention if he has a bowel movement. No CBC was done today creatinine is 2.57 Objective - Vital Signs Vital signs: Vital Signs Temp 98.2 F 08/17/23 11:47 Pulse 86 08/17/23 12:03 Resp 18 08/17/23 11:47 BP 159/70 08/17/23 11:47 Pulse Ox 97 08/17/23 11:47 FiO2 Intake & Output 08/16/23 08/17/23 08/17/23 18:59 06:59 18:59 Intake Total 480 1006.4 0 Output Total 1425 1075 Balance 480 -418.6 -1075 Weight 84.5 kg Intake: Intake, IV Titration 1006.4 Amount Mvi, Adult No.4 with Vit 1006.4 K 10 ml Trace (Conc-1Ml/ Dose) 1 ml Potassium Chloride 40 meq Magnesium Sulfate gm 1 gm In Amino Acid 5%-D20w+Lytes*E* 1, 000 ml @ 48 mls/hr IV . [id number] [facility] Rx#:[id number] Oral 480 0 Output: Urine 1425 1075 Other: Voiding Method Indwelling Catheter Indwelling Catheter Indwelling Catheter # Bowel Movements 1 - Exam GENERAL DESCRIPTION: An elderly male up in the chair in no distress RESPIRATORY SYSTEM: Unlabored breathing , decreased breath sounds at bases HEART: S1 S2 regular rate and rhythm , ABDOMEN: Soft , no tenderness EXTREMITIES: No edema feet - Labs CBC & Chem 7: 08/16/23 10:05 08/17/23 08:52 Labs: Abnormal Lab Results - Last 24 Hours (Table) 08/16/23 08/16/23 08/16/23 Range/Units 10:05 10:05 18:05 Sodium (137-145) mmol/L Potassium (3.5-5.1) mmol/L Carbon Dioxide (22-30) mmol/L BUN (9-20) mg/dL Creatinine (0.66-1.25) mg/dL Glucose (74-99) mg/dL POC Glucose (mg/dL) 127 H (70-110) mg/dL Calcium (8.4-10.2) mg/dL Alkaline Phosphatase (38-126) U/L C-Reactive Protein (<1.0) mg/dL Total Protein (6.3-8.2) g/dL Total Protein (PEP) 4.6 L (6.2-8.2) g/dL Albumin (3.5-5.0) g/dL Prealbumin 13.5 L (18.0-42.0) mg/dL Triglycerides 165.00 H (0.00-149.00) mg/dL 08/17/23 08/17/23 Range/Units 08:52 12:38 Sodium 130 L (137-145) mmol/L Potassium 5.6 H (3.5-5.1) mmol/L Carbon Dioxide 21 L (22-30) mmol/L BUN 37 H (9-20) mg/dL Creatinine 2.57 H (0.66-1.25) mg/dL Glucose 100 H (74-99) mg/dL POC Glucose (mg/dL) 115 H (70-110) mg/dL Calcium 7.8 L (8.4-10.2) mg/dL Alkaline Phosphatase 248 H (38-126) U/L C-Reactive Protein 8.0 H (<1.0) mg/dL Total Protein 4.9 L (6.3-8.2) g/dL Total Protein (PEP) (6.2-8.2) g/dL Albumin 2.0 L (3.5-5.0) g/dL Prealbumin (18.0-42.0) mg/dL Triglycerides (0.00-149.00) mg/dL Assessment and Plan (1) Fever Current Visit: Yes Status: Acute Code(s): R50.9 - FEVER, UNSPECIFIED SNOMED Code(s): 808516089 (2) Leukocytosis Current Visit: Yes Status: Acute Code(s): D72.829 - ELEVATED WHITE BLOOD CELL COUNT, UNSPECIFIED SNOMED Code(s): 613062333 (3) Small bowel obstruction Current Visit: Yes Status: Acute Code(s): K56.609 - UNSP INTESTNL OBST, UNSP TO PARTIAL VERSUS COMPLETE OBST SNOMED Code(s): 933544015 (4) Peritonitis Current Visit: Yes Status: Acute Code(s): K65.9 - PERITONITIS, UNSPECIFIED SNOMED Code(s): 71895351 Plan: 1patient with low-grade fever elevated white count and this patient presented to hospital with abdominal pain and bloating and has been diagnosed with the small bowel obstruction likely etiology for his low-grade fever and elevated white count, the patient is status post laparoscopic lysis of adhesion and enterostomy abdominal cultures obtained which are currently growing Enterococcus drug-resistant Enterobacter and Marybeth 2-patient is afebrile, patient did have slight worsening of the white count, CBC was ordered for this morning not done we will repeat for tomorrow morning procal citonin is pending continue with meropenem and Eraxis Dictation was produced using [employer] dictation software. please excuse any grammatical, word or spelling errors. Time with Patient: Less than 30
[2023-08-17] MEDS: SODIUM BICARB 8.4% 50 ML SYR (1 MEQ/ML) IV STA (17:15)
[2023-08-17 18:00] LABS: Glucose,Whole Blood 103 mg/dL (70-110)
[2023-08-17] MEDS: SODIUM BICARB 8.4% 50 ML SYR (1 MEQ/ML) ONE (19:41)
[2023-08-17] MEDS: MVI, ADULT NO.4 WITH VIT K 10 ML, TRACE (CONC-1ML/DOSE) 1 ML, MAGNESIUM SULFATE GM 1 GM... IV SCH (19:53)
[2023-08-18 00:41] LABS: Glucose,Whole Blood 109 mg/dL (70-110)
[2023-08-18 06:05] LABS: Glucose,Whole Blood 112 mg/dL (70-110)
[2023-08-18 11:22] LABS: Basophils % (A) 0 %; Eosinophils # (A) 0.4 k/uL (0-0.7); Eosinophils % (A) 3 %; HCT 24.4 % (39.0-53.0); HGB 7.9 gm/dL (13.0-17.5); Lymphocytes # (A) 0.8 k/uL (1.0-4.8); Lymphocytes % (A) 7 %; MCHC 32.3 g/dL (31.0-37.0); MCV 89.8 fL (80.0-100.0); Mean Platelet Volume 8.2; Monocytes # (A) 0.9 k/uL (0-1.0); Monocytes % (A) 7 %; Neutrophils # (A) 9.6 k/uL (1.3-7.7); Neutrophils % (A) 80 %; Platelet Count 557 k/uL (150-450); RBC 2.71 m/uL (4.30-5.90); RDW 14.4 % (11.5-15.5)
[2023-08-18 11:28] LABS: Glucose,Whole Blood 114 mg/dL (70-110)
--- NOTE | 2023-08-18 11:35 | P.PN ---
Subjective Patient is seen in follow-up for acute kidney injury on chronic kidney disease, currently hemodialysis dependent. Receiving TPN. On 2 L nasal cannula. Hemodynamically stable. Last dialysis August 12, 2023. Nonoliguric. Poor historian. Vital signs are stable. General: No acute distress. HEENT: Head exam is unremarkable. LUNGS: No audible rhonchi or wheezes. HEART: Rate and Rhythm are regular. ABDOMEN: Tender to touch. EXTREMITITES: No edema. Objective - Vital Signs Vital signs: Vital Signs Temp 98.7 F 08/18/23 04:00 Pulse 100 08/18/23 09:04 Resp 18 08/18/23 04:00 BP 147/78 08/18/23 04:00 Pulse Ox 98 08/18/23 08:51 FiO2 Intake & Output 08/17/23 08/18/23 08/18/23 18:59 06:59 18:59 Intake Total 110 Output Total 1974 1175 750 Balance -2410 -4975 -750 Weight 79.5 kg Intake: Oral 110 Output: Urine 19745 750 Other: Voiding Method Indwelling Catheter Indwelling Catheter - Labs CBC & Chem 7: 08/18/23 10:28 08/17/23 08:52 Labs: Abnormal Lab Results - Last 24 Hours (Table) 08/17/23 08/17/23 08/18/23 Range/Units 08:52 12:38 06:04 WBC (3.8-10.6) k/uL RBC (4.30-5.90) m/uL Hgb (13.0-17.5) gm/dL Hct (39.0-53.0) % Plt Count (150-450) k/uL Neutrophils # (1.3-7.7) k/uL Lymphocytes # (1.0-4.8) k/uL POC Glucose (mg/dL) 115 H 112 H (70-110) mg/dL Procalcitonin 1.34 H (0.02-0.09) ng/mL 08/18/23 08/18/23 Range/Units 10:28 11:27 WBC 12.0 H (3.8-10.6) k/uL RBC 2.71 L (4.30-5.90) m/uL Hgb 7.9 L (13.0-17.5) gm/dL Hct 24.4 L (39.0-53.0) % Plt Count 557 H (150-450) k/uL Neutrophils # 9.6 H (1.3-7.7) k/uL Lymphocytes # 0.8 L (1.0-4.8) k/uL POC Glucose (mg/dL) 114 H (70-110) mg/dL Procalcitonin (0.02-0.09) ng/mL Assessment and Plan Plan: Assessment: 1. Acute kidney injury secondary to hemodynamic ATN. No hydronephrosis noted on CAT scan. Started on hemodialysis August 10, 2023. Last dialysis August 12, 2023. Creatinine stable at 2.57 yesterday. Nonoliguric. 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 Heme/onc following. 2. Chronic kidney disease stage IIIb with baseline creatinine 1.3-1.5 secondary to nephrosclerosis. 3. Partial small bowel obstruction. Receiving TPN. Surgery following. 4. Metabolic acidosis secondary to acute kidney injury and IV fluids. Better. 5. Atrial tachycardia status post Cardizem drip. On metoprolol. Cardiology following. 6. Anemia. Iron deficiency noted. Receiving IV iron. 7. Hyperkalemia secondary to acute kidney injury. Status post Lokelma. Plan: Maintain TPN. Avoid nephrotoxins. Hold off on hemodialysis. Continue to assess on daily basis. If no further hemodialysis will be needed, will discontinue permacath. Continue to monitor renal function and urine output. Maintain Dow catheter. Preserved EF noted on echo. Restrict potassium in TPN feeds. Morning labs pending.
[2023-08-18 11:39] LABS: ALT 18 U/L (4-49); AST 32 U/L (17-59); African American GFR (CKD) 28 (>60 ml/min/1.73 sqM); Albumin 1.9 g/dL (3.5-5.0); Alkaline Phosphatase 235 U/L (38-126); Anion Gap 6 mmol/L; Blood Urea Nitrogen 38 mg/dL (9-20); Calcium 7.7 mg/dL (8.4-10.2); Carbon Dioxide 20 mmol/L (22-30); Chloride 107 mmol/L (98-107); Glucose 108 mg/dL (74-99); Non-African American GFR(CKD) 24 (>60 ml/min/1.73 sqM); Phosphorus 4.9 mg/dL (2.5-4.5); Potassium 5.6 mmol/L (3.5-5.1); Sodium 133 mmol/L (137-145); Total Bilirubin 0.3 mg/dL (0.2-1.3); Total Protein 4.8 g/dL (6.3-8.2)
--- NOTE | 2023-08-18 12:09 | XR ---
Abdomen: HISTORY: Ileus abdominal pain COMPARISON: 08/15/2023. TECHNIQUE: Single supine view the abdomen was obtained FINDINGS: There is been no interval change in the diffuse gas within the large and small bowel. There is no spring ss dilatation of the bowel loops. There is no suspicious calcification within the abdomen or pelvis. IMPRESSION: No significant interval change in the diffuse air-filled loops of colon and small bowel consistent wi th a stable adynamic ileus.
[2023-08-18 12:41] LABS: Albumin 1.73 g/dL (3.80-4.90); Gamma Globulin 0.94 g/dL (0.70-1.50)
--- NOTE | 2023-08-18 12:42 | P.PN ---
Subjective Progress Note Date: 08/18/23 Progress note Date of service 08/18/[address] Griffin Patient seen evaluated [id number] Patient seen by Dr. Alejandro nephrology noted no for third dialysis and he order discontinuation of the dialysis catheter. Patient had Dow catheter to be maintained for STEVE. X-ray of the abdomen indicating small bowel dilatation with fluid level indicating ileus versus obstruction still present as the bowel sounds are still present with a high-pitched sound No further recommendation from surgical team, Dr. Pinzon will be following the patient for further expectation or treatment. Vital sign: Temperature 98.7 F oral, heart rate 98 to 100/min, respiratory rate 18/min, blood pressure 147/78, and oxygen saturation 97. Laboratory: WBC 12 hemoglobin 7.9/hematocrit 24.4 MCV 89.8, and platelet count 557. Chemistry indicating sodium 133, potassium 5.6, carbon dioxide 20, BUN 38, creatinine 2.38. GFR for non- 24 and creatinine 2.38. Patient on TPN blood sugar monitoring blood glucose 108 and 114 POC glucose. 114, calcium 7.7, phosphorus 4.9. Normal liver enzyme, alkaline phosphatase 235 albumin 1.9 and total protein 4.8 on Intralipid and TPN infusion. X-ray of the abdomen: Indicate no significant interval change in the diffuse air filled loop of the colon and small bowel consistent with adynamic ileus but he had positive bowel sounds with high-pitched I am still suspicious of small obstructive bowel may be there is any fourth or adhesion present. Patient conscious alert he had Dow catheter Head and neck: Chronic left facial drooping with abundant left high lid which has been chronically present Natural teeth Neck was supple able to move his neck [id number] and normal swallowing Chest normal breath sounds no complaint of chest pain Heart normal sinus rhythm Abdomen: Still tenderness in the 4 quadrant more exacerbation in both left lower quadrant and inguinal area as well as the right side tender in palpation as well with a high-pitched bowel sounds. No real bowel movement or flatus has been noted. And still persistent his distention Extremities: Patient wearing thrombotic stocking, 1+ pitting edema with the underlying hypoalbuminemia and prealbumin. Nonoliguric. Assessment: 1. Persistent anemia and progressive. 2. No real bowel movement with a high-pitched sound antibiotic abdomen and no resolution for ileus versus still bowel obstruction present. With the prolonged post operative laparoscopic robotic lysis of adhesion. 3. Severe protein calorie nutrition deficiency associated with prolonged starvation. 4. Underlying sinus tachycardia has been improved with a history of coronary artery disease currently Chest pain and stable 5. History of respiratory failure and asthma and COPD on oxygen 2 L/min. 6. Acute kidney injury on the top of chronic kidney disease stage III. 7. 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 Dee he consulted oncology I do not see any response from oncology note. 8. Hyperkalemia and still renal failure 9. Hypoalbuminemia and edema of the lower extremities patient wearing a thr ombotic stocking. Plan: Patient still critical with no resolution of his distention and pain of the abdomen with the above history. Nephrology is following, dialysis has been discontinued per Dr. Dee as well as order of dialysis catheter to be removed Dr. Pinzon is following the patient. The surgeon Objective - Vital Signs Vital signs: Vital Signs Temp 98.7 F 08/18/23 04:00 Pulse 98 08/18/23 12:17 Resp 18 08/18/23 04:00 BP 147/78 08/18/23 04:00 Pulse Ox 98 08/18/23 08:51 FiO2 Intake & Output 08/17/23 08/18/23 08/18/23 18:59 06:59 18:59 Intake Total 110 Output Total 1974 1175 750 Balance -9477 -9813 -280 Weight 79.5 kg Intake: Oral 110 Output: Urine 19745 750 Other: Voiding Method Indwelling Catheter Indwelling Catheter - Labs CBC & Chem 7: 08/18/23 10:28 08/18/23 10:28 Labs: Abnormal Lab Results - Last 24 Hours (Table) 08/17/23 08/17/23 08/18/23 Range/Units 08:52 12:38 06:04 WBC (3.8-10.6) k/uL RBC (4.30-5.90) m/uL Hgb (13.0-17.5) gm/dL Hct (39.0-53.0) % Plt Count (150-450) k/uL Neutrophils # (1.3-7.7) k/uL Lymphocytes # (1.0-4.8) k/uL Sodium (137-145) mmol/L Potassium (3.5-5.1) mmol/L Carbon Dioxide (22-30) mmol/L BUN (9-20) mg/dL Creatinine (0.66-1.25) mg/dL Glucose (74-99) mg/dL POC Glucose (mg/dL) 115 H 112 H (70-110) mg/dL Calcium (8.4-10.2) mg/dL Phosphorus (2.5-4.5) mg/dL Alkaline Phosphatase (38-126) U/L Total Protein (6.3-8.2) g/dL Albumin (3.5-5.0) g/dL Procalcitonin 1.34 H (0.02-0.09) ng/mL 08/18/23 08/18/23 08/18/23 Range/Units 10:28 10:28 11:27 WBC 12.0 H (3.8-10.6) k/uL RBC 2.71 L (4.30-5.90) m/uL Hgb 7.9 L (13.0-17.5) gm/dL Hct 24.4 L (39.0-53.0) % Plt Count 557 H (150-450) k/uL Neutrophils # 9.6 H (1.3-7.7) k/uL Lymphocytes # 0.8 L (1.0-4.8) k/uL Sodium 133 L (137-145) mmol/L Potassium 5.6 H (3.5-5.1) mmol/L Carbon Dioxide 20 L (22-30) mmol/L BUN 38 H (9-20) mg/dL Creatinine 2.38 H (0.66-1.25) mg/dL Glucose 108 H (74-99) mg/dL POC Glucose (mg/dL) 114 H (70-110) mg/dL Calcium 7.7 L (8.4-10.2) mg/dL Phosphorus 4.9 H (2.5-4.5) mg/dL Alkaline Phosphatase 235 H (38-126) U/L Total Protein 4.8 L (6.3-8.2) g/dL Albumin 1.9 L (3.5-5.0) g/dL Procalcitonin (0.02-0.09) ng/mL
[2023-08-18] MEDS: SODIUM BICARB 8.4% 50 ML SYR (1 MEQ/ML) IV STA ×2 (12:59→13:05)
[2023-08-18] MEDS: SODIUM ZIRCONIUM CYCLOSILICATE 10 GM PACKET PO ONE (12:59)
--- NOTE | 2023-08-18 14:49 | P.PN ---
Subjective Progress Note Date: 08/18/23 This is a 83-year-old male patient with a known history of coronary artery disease with previous stent placement, dementia, hypertension, hyperlipidemia, hypothyroidism, non-smoker who presented here to the emergency room on 08/01/2023 with abdominal pain. He had been followed by surgical services. He did have a nasogastric tube which had approximately 2100 cc output once put in. However the patient inadvertently pulled it out last night. Today he had developed increased abdominal discomfort, tachycardia and shortness of breath. We were consulted for possible transfer to the ICU. He is seen today on the regular medical floor. He is awake and alert. He denies any pain at rest. He is tender to palpation. He is tachycardic, sinus. Currently afebrile. Continue O2 saturations in the mid 90s on 3 L/min per nasal cannula. Blood pressure stable. Blood cultures reveal no growth. White count 8.5. Hemoglobin 12.6. Platelets 373. Sodium 139. Potassium 4.6. Bicarb 14. BUN 34. Creatinine 3.11. Glucose 88. Amylase 73. Lipase 49. CT scan of the abdomen today revealed bowel obstruction pattern. Small amount of free fluid. Chest x-ray reveals no acute cardiopulmonary process. A nasogastric tube has been reinserted and in good position. He is currently on Zosyn. Patient was seen and examined today on 08/05/2023, patient is doing much better today compared to the last 2 days, less abdominal pain, no nausea no vomiting, continues to have nasogastric tube in place.WBC count is 9.9 hemoglobin 11.3 basic metabolic profile is normal however his renal functioning is worse with BUN up to 69 creatinine 5.60, and that is being addressed by nephrology on the case. His acute kidney injury is felt to be related to hemodynamic ATN, no hydronephrosis on CT of the abdomen, patient does have history of chronic kidney disease stage IIIb. Patient is on Cardizem drip now for atrial tachycardia. And cardiology is following Reevaluate today on 08/06/23, patient pulled his nasogastric tube yesterday, continues to have abdominal distention and abdominal pain. Apparently multiple attempts by nurses to place the nasogastric tube were unsuccessful. Surgery is to address the nasogastric tube placement and or exploratory laparotomy on this patient to relieve his bowel obstruction.WBC count today is 8.4 hemoglobin 10.4, basic metabolic profile is normal renal profile is worsening with a BUN of 85 creatinine 6.08 and his renal profile is being addressed by nephrology on the case Patient was reevaluated today on 08/07/2023, continues to have abdominal pain, continues to have small bowel obstruction, and now he is developing worsening renal disease. From the looks of it, patient may be heading towards dialysis. Patient was seen by Dr. Truong today, and I believe he is recommending exploratory laparotomy after he is seen by Dr. Goodman tomorrow. Continues to have decent urine output, 600 cc in the last 8 hours. Could not have a nasogastric tube placed back, patient is getting in Progress note dated August 08, 2023. 83-year-old male seen in room 378. The patient is currently on 2 L of oxygen. The patient is getting dextrose with half-normal saline at 100 cc an hour. He does have a significantly tender abdomen, anytime he burps, or coughs. Also, he is tender on palpation. Current labs include a white count 9.5, hemoglobin 11.4, hematocrit 36, and a platelet count of 343,000. Sodium 143, potassium 4.2, chlorides 107, CO2 27, BUN 93, creatinine 5.62. Calcium is 8, with a phosphorus of 5.4. Glucose is 97. Blood cultures are negative. Progress note dated August 09, 2023. 83-year-old male seen today in room 378. The patient is currently on 3 L of oxygen. NG tube remains in place. He is getting D5 with half-normal saline at 100 cc an hour. The patient has significant abdominal pain on palpation of the abdomen. Labs today include a white count 9.3, hemoglobin 10.8, hematocrit 33.9, and a platelet count of 355,000. Sodium 140, potassium 4.4, chlorides 110, CO2 22, BUN 87, and creatinine 5.53. Glucose is 116. Albumin is 2. All microbiologic sampling is thus far negative. Progress note dated August 10, 2023. 83-year-old male seen again in room 378. The patient again pulled out his NG tube. The patient is on room air. The patient is getting TPN at 30 cc an hour. The patient still has significant abdominal discomfort on palpation. I count 10.5, hemoglobin 10.7, hematocrit 33.8, and platelet count is 384,000. Sodium 140, potassium 3.8, chlorides 107, CO2 20, anion gap 13, BUN 92, creatinine 5.60. Glucose is 123. Magnesium 1.9. Phosphorus 5.2. Progress note dated August 11, 2023. 83-year-old male seen today in room 377. Currently, the patient is receiving hemodialysis. He is on room air. The patient is a DO NOT RESUSCITATE patient. He is getting TPN at 48 cc an hour. He continues on Eraxis, and Zosyn. No new laboratory data today as yet, other than a glucose of 106. Chest x-ray from yesterday shows some mild streaky basilar atelectasis. Progress note dated August 12, 2023. 83-year-old male, seen in room 377. Currently, the patient is on room air. The patient is getting TPN at 48 cc an hour. He continues on Eraxis, and meropenem. Current labs include a sodium 133, potassium 3.2, chlorides 102, CO2 24, BUN 37, creatinine 2.53. Glucose is 128. Calcium 7.5. Albumin 1.9. The patient does not appear to be as tender, on palpation of the abdomen, as he has been, on previous days. Progress note dated August 13, 2023. 83-year-old male seen today in room 377. The patient continues on room air. S aturations are 94%. The rest of his vital signs are relatively stable. The patient continues on TPN at 48 cc an hour, and D5.45, at 100 cc an hour. He also continues on meropenem, and the antifungal, and Eraxis. Current laboratory data includes a sodium 131, potassium 3.3, chlorides 101, CO2 25, BUN 23, creatinine 1.96. Glucose is 115. Albumin is 1.9. Wound cultures were positive for Enterobacter aerogenes, Marybeth albicans, and Enterococcus faecalis. The patient is seen today August 14, 2023 in follow-up on the regular medical floor. He is currently resting in bed. He denies any worsening abdominal pain. He is maintaining O2 saturations in the 90s on room air. He has D5 W and 0.45 normal saline at 100 MLS per hour. He remains on TPN at 40 MLS per hour. Wound cultures were positive for Enterobacter aerogenes, Marybeth albicans, Enterococcus faecalis. White count 11.4. Hemoglobin 9.5. Platelets 358. Sodium 130. Potassium 3.8. Bicarb 25. BUN 28. Creatinine 2.29. Glucose 98. C-reactive protein 6.5. He is continued on meropenem and Eraxis. Continued on bronchodilators. Heparin for DVT prophylaxis. On today's evaluation of 08/15/2023, the patient is being seen for a follow-up. The patient had a complicated bowel obstruction with left lower quadrant pain. The patient underwent a robotic laparoscopic lysis of adhesions and decompression enterostomy. Intraoperatively, the patient was found to have severe sigmoid diverticulosis without diverticulitis. There was severe small bowel diverticulosis involving the jejunum and there was volvulus in the right lower quadrant that was reduced. There was mesenteric adhesions and multiple pelvic adhesions involving the sigmoid colon that was released. Decompression of the bowel was done. Intra-abdominal cultures turned out to be positive for Enterobacter and Enterococcus faecium. As such, the patient could have had a component of peritonitis. The patient is currently on broad-spectrum antibiotics. The patient is currently on a combination of meropenem and Eraxis. The patient is also on TPN for nutritional support. He is resting comfortably in bed. No signs of any respiratory distress. On 2 L of oxygen by nasal cannula with a pulse ox of 98%. The blood work shows a WBC count 13.9 with a hemoglobin 9.1 and a platelet count of 453. BUN is at 32 with a creatinine of 2.6 and the patient been seen by nephrology. The patient is undergoing dialysis and last dialysis was done on 08/12/2023 and a dialysis currently on hold and the renal function is being monitored very closely. Dow catheter is in place. On today's evaluation of 08/16/2023, I am seeing the patient for a follow-up. The patient is resting comfortably in bed. Continues to have some abdominal pain. This was discussed with the general surgical team and it was thought that his abdominal exam was essentially benign. The patient has bowel sounds and the patient is also passing mucoid bowel movements. White cell count of 15.4 with a hemoglobin of 8.3. There is some mild uptrending of his white cell count count over the past 48 hours. Platelet count is at 477, BUN is 35 with a creatinine of 2.5 which is essentially stable compared to yesterday and a sodium levels at 130. He remains on Eraxis and meropenem. He remains on TPN for nutritional support. No signs of any respiratory distress and the patient is on 2 L of oxygen by nasal cannula with a pulse ox of 99%. General surgery remains on the case. On today's evaluation of 08/17/2023, the patient is taking some clear liquid diet and he is also given some soft mechanically managed diet. He is stooling. However, he is having some ongoing abdominal tenderness on examination. Bowel sounds are present. Surgical wounds that are directing and intact. No resp iratory distress. Renal function remains impaired with a BUN of 37 and a creatinine of 2.57 and a sodium levels at 130 with a potassium level of 5.6. The patient is being seen by nephrology. He has sustained an acute kidney injury on top of his chronic kidney failure. He is still on TPN for nutritional support. His last hemodialysis was on on 08/12/2023. Nephrology on the case. The patient remains on Eraxis and IV meropenem. Afebrile. Hemodynamically stable. Currently on oxygen at 2.5 L. No signs of any respiratory distress. He is a poor historian in general. On today's evaluation on 08/18/2023, the patient continues to have some abdominal distention and abdominal pain. He is a very poor historian. He cannot provide adequate description of the symptoms that he is encountering. However on examination, he does have some direct tenderness over his entire abdomen. Based on that, abdominal x-ray was done and the patient was found to have diffuse air- filled loops of colon and small bowel consistent with stable adynamic ileus. Also, repeat blood work from today showed a WBC count of 12 with a hemoglobin of 7.9 and a platelet count of 557. BUN is at 38 with a creatinine of 2.3 and sodium levels at 133 with a potassium level of 5.6. The patient is being seen by general surgery. The patient remains on TPN for nutritional support. The patient has no active respiratory issues for now. The patient is currently on oxygen at 2 L/min nasal cannula with a pulse ox of 98%. Afebrile. Hemodynamically stable. Remains on Eraxis and meropenem. Remains on TPN for nutritional support. IV fluids are in the form of normal saline at rate of 50 cc an hour. Oral intake remains quite diminished. The patient was also seen by nephrology. He has an acute on top of chronic kidney injury currently hemodialysis dependent. His last dialysis was on 08/12/2023. No further dialysis been done since. He is being assessed on a daily basis. Dow catheter is in place. Echocardiogram shows a preserved LV function. Objective - Vital Signs Vital signs: Vital Signs Temp 98.7 F 08/18/23 04:00 Pulse 100 08/18/23 09:04 Resp 18 08/18/23 04:00 BP 147/78 08/18/23 04:00 Pulse Ox 98 08/18/23 08:51 FiO2 Intake & Output 08/17/23 08/18/23 08/18/23 18:59 06:59 18:59 Intake Total 110 Output Total 1974 1175 750 Balance -9394 -6085 -936 Weight 79.5 kg Intake: Oral 110 Output: Urine 19745 750 Other: Voiding Method Indwelling Catheter Indwelling Catheter - Exam An 83-year-old male patient, on room air, no acute distress. No respiratory difficulty. The patient is currently on 2 L of oxygen by nasal cannula. HEENT examination is grossly unremarkable. Mucous membranes are moist. No oral lesions. Neck supple. Full range of motion. No adenopathy thyromegaly or neck vein distention. Cardiovascular examination reveals regular rhythm rate. S1-S2 normal. No S3 or S4. No discernible murmur noted. Lungs reveal clear breath sounds. Breath sounds are equal bilaterally. No adventitious lung sounds including wheezes rhonchi or crackles. Abdomen is tender on palpation. No bowel sounds. Hypoactive bowel sounds. Surgical wound site are all dry clean and intact. Extremities are intact. No cyanosis clubbing or edema. Skin is without rash or lesion. Neurologic examination is brief but nonfocal. - Labs CBC & Chem 7: 08/18/23 10:28 08/18/23 10:28 Labs: Abnormal Lab Results - Last 24 Hours (Table) 08/17/23 08/17/23 08/18/23 Range/Units 08:52 12:38 06:04 POC Glucose (mg/dL) 115 H 112 H (70-110) mg/dL Procalcitonin 1.34 H (0.02-0.09) ng/mL Assessment and Plan Plan: Abdominal pain in a patient found to have a bowel obstruction. The patient had bowel obstruction and intraoperatively, the patient was found to have severe sigmoid diverticulosis without diverticulitis, severe small bowel diverticulosis involving the jejunum and volvulus of the right lower quadrant that was reduced and mesenteric adhesions with multiple pelvic adhesions involving the sigmoid colon that were released. Decompression of the bowel was done. The patient has positive intra-abdominal cultures consistent with peritonitis. The patient has positive Enterobacter and Enterococcus faecium currently on a combination of Eraxis and meropenem. The patient receiving TPN for nutritional support. General surgery is on the case. Condition is essentially unchanged compared to yesterday. The patient is having some mild abdominal distention and tenderness. Nevertheless, no significant leukocytosis and the x-ray of the abdomen shows some adynamic ileus. Remains on TPN for nutritional support. Acute hypoxemic respiratory failure secondary to above, history of COPD but is a lifelong non-smoker and the patient is currently on 2 L of oxygen by nasal cannula Acute on chronic kidney injury, received hemodialysis the last hemodialysis session was on 08/12/2023, currently being monitored by nephrology. Creatinine is stable compared to yesterday, elevated potassium level that is being managed by nephrology. TPN potassium supplements are adjusted and potassium level remains mildly elevated. Will monitor. Mild leukocytosis History of coronary disease with previous stent placement Hypertension Hyperlipidemia Hypothyroidism Dementia Lifelong non-smoker Plan: Monitor the white cell count on the count is lower compared to yesterday. X-ray of the abdomen is showing possibility of adynamic ileus. Monitor potassium level and adjusted to potassium supplements through the TPN Monitor creatinine which is stable on today's evaluation, nephrology on the kaushal e, potassium level remains slightly elevated Continue TPN for nutritional support General surgery is on the case Remains on meropenem and Eraxis Surgical services are following Physical therapy Monitor electrolytes DNR CODE STATUS We will continue to follow
--- NOTE | 2023-08-18 15:48 | P.PN ---
Subjective Progress Note Date: 08/18/23 CHIEF COMPLAINT: Abdominal pain HISTORY OF PRESENT ILLNESS: Patient seen and examined this afternoon with Dr. Pinzon. Patient lying in bed. Incisional dressings were removed. Incisions are clean dry and intact. He had a bowel movement yesterday. No vomiting reported. Afebrile. WBC is down from 15.4-12 Hgb is 7.9 sodium is 133 creatinine 2.38 potassium 5.6 Patient with small bowel obstruction status post robotic assisted laparoscopic lysis of adhesions and decompressive enterostomy, POD#9. PHYSICAL EXAM: VITAL SIGNS: Reviewed GENERAL: Well-developed in no acute distress. HEENT: No sclera icterus. Extraocular movements grossly intact. Moist buccal mucosa. Head is atraumatic, normocephalic. Hears conversational speech. No nasal drainage. NECK: Supple without lymphadenopathy. CHEST: Non-labored respirations and equal bilateral excursions. CARDIOVASCULAR: Palpable 2+ radial pulses. ABDOMEN: Mildly Distended. No signs of peritonitis. Minimal tenderness with palpation lower abdomen. Incision sites clean dry and intact. MUSCULOSKELETAL: No clubbing or cyanosis. NEUROLOGIC: No focal or lateralizing signs. Cranial nerves II through XII grossly intact. PSYCH: Appropriate affect. Alert and oriented to person, place and time. SKIN: Well perfused. Good skin turgor. ASSESSMENT: 1. Small bowel obstruction due to adhesion, lower pelvis left lower quadrant status post lysis of adhesions and decompressive enterostomy 2. Expected ileus due to physical inactivity 3. Acute renal failure 4. Sigmoid diverticulosis 5. Left lower quadrant abdominal pain 6. Internal hernia pelvis PLAN: -Discussed with nursing staff and physical therapy to increase patient's activity level -Patient's of physical debility, hyponatremia and acute kidney injury agitating abdominal ileus -Continue to monitor -Continue to correct electrolytes -Continue ground diet -Continue TPN -Continue pain management -Continue supportive care Physician Beauty Therapist note has been reviewed by physician. Signing provider agrees with the documented findings, assessment, and plan of care. Objective - Vital Signs Vital signs: Vital Signs Temp 97.9 F 08/18/23 12:57 Pulse 97 08/18/23 14:00 Resp 18 08/18/23 14:00 BP 147/78 08/18/23 04:00 Pulse Ox 98 08/18/23 08:51 FiO2 Intake & Output 04/03/0108/18/23 08/18/23 18:59 06:59 18:59 Intake Total 110 Output Total 1974 1175 1200 Balance -3389 -2950 -1200 Weight 79.5 kg Intake: Oral 110 Output: Urine 19745 1200 Other: Voiding Method Indwelling Catheter Indwelling Catheter Indwelling Catheter - Labs CBC & Chem 7: 08/18/23 10:28 08/18/23 10:28 Labs: Abnormal Lab Results - Last 24 Hours (Table) 08/16/23 08/17/23 08/18/23 Range/Units 10:05 08:52 06:04 WBC (3.8-10.6) k/uL RBC (4.30-5.90) m/uL Hgb (13.0-17.5) gm/dL Hct (39.0-53.0) % Plt Count (150-450) k/uL Neutrophils # (1.3-7.7) k/uL Lymphocytes # (1.0-4.8) k/uL Sodium (137-145) mmol/L Potassium (3.5-5.1) mmol/L Carbon Dioxide (22-30) mmol/L BUN (9-20) mg/dL Creatinine (0.66-1.25) mg/dL Glucose (74-99) mg/dL POC Glucose (mg/dL) 112 H (70-110) mg/dL Calcium (8.4-10.2) mg/dL Phosphorus (2.5-4.5) mg/dL Alkaline Phosphatase (38-126) U/L Total Protein (6.3-8.2) g/dL Albumin (3.5-5.0) g/dL Albumin (PEP) 1.73 L (3.80-4.90) g/dL Wzfep-2-Owglbulgv 0.52 H (0.10-0.40) g/dL Procalcitonin 1.34 H (0.02-0.09) ng/mL 08/18/23 08/18/23 08/18/23 Range/Units 10:28 10:28 11:27 WBC 12.0 H (3.8-10.6) k/uL RBC 2.71 L (4.30-5.90) m/uL Hgb 7.9 L (13.0-17.5) gm/dL Hct 24.4 L (39.0-53.0) % Plt Count 557 H (150-450) k/uL Neutrophils # 9.6 H (1.3-7.7) k/uL Lymphocytes # 0.8 L (1.0-4.8) k/uL Sodium 133 L (137-145) mmol/L Potassium 5.6 H (3.5-5.1) mmol/L Carbon Dioxide 20 L (22-30) mmol/L BUN 38 H (9-20) mg/dL Creatinine 2.38 H (0.66-1.25) mg/dL Glucose 108 H (74-99) mg/dL POC Glucose (mg/dL) 114 H (70-110) mg/dL Calcium 7.7 L (8.4-10.2) mg/dL Phosphorus 4.9 H (2.5-4.5) mg/dL Alkaline Phosphatase 235 H (38-126) U/L Total Protein 4.8 L (6.3-8.2) g/dL Albumin 1.9 L (3.5-5.0) g/dL Albumin (PEP) (3.80-4.90) g/dL Fwlqy-1-Rpvkrgrqh (0.10-0.40) g/dL Procalcitonin (0.02-0.09) ng/mL
[2023-08-18 16:41] LABS: Glucose,Whole Blood 94 mg/dL (70-110)
[2023-08-18] MEDS: MVI, ADULT NO.4 WITH VIT K 10 ML, TRACE (CONC-1ML/DOSE) 1 ML, SODIUM ACETATE 30 MEQ, CA... IV SCH (17:07)
[2023-08-19 00:11] LABS: Glucose,Whole Blood 114 mg/dL (70-110)
[2023-08-19 06:16] LABS: Glucose,Whole Blood 114 mg/dL (70-110)
[2023-08-19 08:35] LABS: ALT 24 U/L (4-49); AST 41 U/L (17-59); African American GFR (CKD) 32 (>60 ml/min/1.73 sqM); Alkaline Phosphatase 264 U/L (38-126); Anion Gap 5 mmol/L; Blood Urea Nitrogen 39 mg/dL (9-20); Calcium 7.8 mg/dL (8.4-10.2); Carbon Dioxide 22 mmol/L (22-30); Chloride 106 mmol/L (98-107); Glucose 106 mg/dL (74-99); Non-African American GFR(CKD) 28 (>60 ml/min/1.73 sqM); Phosphorus 4.4 mg/dL (2.5-4.5); Potassium 5.3 mmol/L (3.5-5.1); Sodium 133 mmol/L (137-145); Total Bilirubin 0.3 mg/dL (0.2-1.3); Total Protein 4.9 g/dL (6.3-8.2)
--- NOTE | 2023-08-19 08:53 | P.PN ---
Subjective Progress Note Date: 08/18/23 Principal diagnosis: Reason for follow-up is fever likely abdominal source Patient is a 83-year-old male with a past medical history significant for coronary disease COPD dementia hypertension hyperlipidemia reflux presenting to the hospital for evaluation of abdominal pain bloating has been diagnosed with the distal small bowel obstruction developing a fever concerning for possible abdominal sepsis prompting this consultation.Patient is status post robotic assisted laparoscopic lysis of adhesion extensive and decompressive enterostomy that was completed on 08/08/2023 On today's evaluation that is 08/18/2023, the patient continues to be afebrile, the patient is on 2 L nasal cannula oxygen and breathing comfortably, the Pt denies having any chest pain or cough, the patient still complains of some abdominal discomfort nausea but no vomiting no significant bowel movement. Patient white count is down to 12,000, creatinine is 2.38 Objective - Vital Signs Vital signs: Vital Signs Temp 98.7 F 08/18/23 04:00 Pulse 95 08/18/23 12:28 Resp 18 08/18/23 04:00 BP 147/78 08/18/23 04:00 Pulse Ox 98 08/18/23 08:51 FiO2 Intake & Output 08/17/23 08/18/23 08/18/23 18:59 06:59 18:59 Intake Total 110 Output Total 1974 1175 716 Balance -9968 -7426 -014 Weight 79.5 kg Intake: Oral 110 Output: Urine 1974 1175 750 Other: Voiding Method Indwelling Catheter Indwelling Catheter - Exam GENERAL DESCRIPTION: An elderly male up in the chair in no distress RESPIRATORY SYSTEM: Unlabored breathing , decreased breath sounds at bases HEART: S1 S2 regular rate and rhythm , ABDOMEN: Soft , no tenderness EXTREMITIES: No edema feet - Labs CBC & Chem 7: 08/18/23 10:28 08/19/23 06:55 Labs: Abnormal Lab Results - Last 24 Hours (Table) 08/16/23 08/17/23 08/18/23 Range/Units 10:05 08:52 06:04 WBC (3.8-10.6) k/uL RBC (4.30-5.90) m/uL Hgb (13.0-17.5) gm/dL Hct (39.0-53.0) % Plt Count (150-450) k/uL Neutrophils # (1.3-7.7) k/uL Lymphocytes # (1.0-4.8) k/uL Sodium (137-145) mmol/L Potassium (3.5-5.1) mmol/L Carbon Dioxide (22-30) mmol/L BUN (9-20) mg/dL Creatinine (0.66-1.25) mg/dL Glucose (74-99) mg/dL POC Glucose (mg/dL) 112 H (70-110) mg/dL Calcium (8.4-10.2) mg/dL Phosphorus (2.5-4.5) mg/dL Alkaline Phosphatase (38-126) U/L Total Protein (6.3-8.2) g/dL Albumin (3.5-5.0) g/dL Albumin (PEP) 1.73 L (3.80-4.90) g/dL Knwzq-1-Xosunebxo 0.52 H (0.10-0.40) g/dL Procalcitonin 1.34 H (0.02-0.09) ng/mL 08/18/23 08/18/23 08/18/23 Range/Units 10:28 10:28 11:27 WBC 12.0 H (3.8-10.6) k/uL RBC 2.71 L (4.30-5.90) m/uL Hgb 7.9 L (13.0-17.5) gm/dL Hct 24.4 L (39.0-53.0) % Plt Count 557 H (150-450) k/uL Neutrophils # 9.6 H (1.3-7.7) k/uL Lymphocytes # 0.8 L (1.0-4.8) k/uL Sodium 133 L (137-145) mmol/L Potassium 5.6 H (3.5-5.1) mmol/L Carbon Dioxide 20 L (22-30) mmol/L BUN 38 H (9-20) mg/dL Creatinine 2.38 H (0.66-1.25) mg/dL Glucose 108 H (74-99) mg/dL POC Glucose (mg/dL) 114 H (70-110) mg/dL Calcium 7.7 L (8.4-10.2) mg/dL Phosphorus 4.9 H (2.5-4.5) mg/dL Alkaline Phosphatase 235 H (38-126) U/L Total Protein 4.8 L (6.3-8.2) g/dL Albumin 1.9 L (3.5-5.0) g/dL Albumin (PEP) (3.80-4.90) g/dL Jgjvm-4-Nyzlkfrzx (0.10-0.40) g/dL Procalcitonin (0.02-0.09) ng/mL Assessment and Plan (1) Fever Current Visit: Yes Status: Acute Code(s): R50.9 - FEVER, UNSPECIFIED SNOMED Code(s): 868262538 (2) Leukocytosis Current Visit: Yes Status: Acute Code(s): D72.829 - ELEVATED WHITE BLOOD CELL COUNT, UNSPECIFIED SNOMED Code(s): 065006082 (3) Small bowel obstruction Current Visit: Yes Status: Acute Code(s): K56.609 - UNSP INTESTNL OBST, UNSP TO PARTIAL VERSUS COMPLETE OBST SNOMED Code(s): 746319368 (4) Peritonitis Current Visit: Yes Status: Acute Code(s): K65.9 - PERITONITIS, UNSPECIFIED SNOMED Code(s): 88842205 Plan: 1patient with low-grade fever elevated white count and this patient presented to hospital with abdominal pain and bloating and has been diagnosed with the small bowel obstruction likely etiology for his low-grade fever and elevated white count, the patient is status post laparoscopic lysis of adhesion and enterostomy abdominal cultures obtained which are currently growing Enterococcus drug-resistant Enterobacter and Marybeth 2-patient is afebrile, patient white count is trending down and will monitor closely for now continue the patient on meropenem and Eraxis, monitor clinical course closely Dictation was produced using [employer] software. please excuse any grammatical, word or spelling errors. Time with Patient: Less than 30
--- NOTE | 2023-08-19 11:26 | P.PN ---
Subjective Patient is seen in follow-up for acute kidney injury on chronic kidney disease, currently hemodialysis dependent. Receiving TPN. On room air. Hemodynamically stable. Last dialysis August 12, 2023. Nonoliguric. Poor historian. Family present at bedside. Vital signs are stable. General: No acute distress. HEENT: Head exam is unremarkable. LUNGS: No audible rhonchi or wheezes. HEART: Rate and Rhythm are regular. ABDOMEN: Tender to touch. EXTREMITITES: No edema. Objective - Vital Signs Vital signs: Vital Signs Temp 97.3 F L 08/19/23 11:20 Pulse 90 08/19/23 11:20 Resp 18 08/19/23 11:20 BP 154/84 08/19/23 11:20 Pulse Ox 97 08/19/23 11:20 FiO2 Intake & Output 08/18/23 08/19/23 08/19/23 18:59 06:59 18:59 Output Total 1200 675 Balance -1200 -675 Output: Urine 1200 675 Other: Voiding Method Indwelling Catheter Indwelling Catheter Indwelling Catheter - Labs CBC & Chem 7: 08/18/23 10:28 08/19/23 06:55 Labs: Abnormal Lab Results - Last 24 Hours (Table) 08/16/23 08/18/23 08/18/23 Range/Units 10:05 10:28 11:27 Sodium 133 L (137-145) mmol/L Potassium 5.6 H (3.5-5.1) mmol/L Carbon Dioxide 20 L (22-30) mmol/L BUN 38 H (9-20) mg/dL Creatinine 2.38 H (0.66-1.25) mg/dL Glucose 108 H (74-99) mg/dL POC Glucose (mg/dL) 114 H (70-110) mg/dL Calcium 7.7 L (8.4-10.2) mg/dL Phosphorus 4.9 H (2.5-4.5) mg/dL Alkaline Phosphatase 235 H (38-126) U/L Total Protein 4.8 L (6.3-8.2) g/dL Albumin 1.9 L (3.5-5.0) g/dL Albumin (PEP) 1.73 L (3.80-4.90) g/dL [id number] 0.52 H (0.10-0.40) g/dL 08/18/23 08/19/23 08/19/23 Range/Units 17:35 00:10 06:15 Sodium (137-145) mmol/L Potassium 5.3 H (3.5-5.1) mmol/L Carbon Dioxide (22-30) mmol/L BUN (9-20) mg/dL Creatinine (0.66-1.25) mg/dL Glucose (74-99) mg/dL POC Glucose (mg/dL) 114 H 114 H (70-110) mg/dL Calcium (8.4-10.2) mg/dL Phosphorus (2.5-4.5) mg/dL Alkaline Phosphatase (38-126) U/L Total Protein (6.3-8.2) g/dL Albumin (3.5-5.0) g/dL Albumin (PEP) (3.80-4.90) g/dL Pjhhg-8-Aztlihsht (0.10-0.40) g/dL 08/19/23 Range/Units 06:55 Sodium 133 L (137-145) mmol/L Potassium 5.3 H (3.5-5.1) mmol/L Carbon Dioxide (22-30) mmol/L BUN 39 H (9-20) mg/dL Creatinine 2.12 H (0.66-1.25) mg/dL Glucose 106 H (74-99) mg/dL POC Glucose (mg/dL) (70-110) mg/dL Calcium 7.8 L (8.4-10.2) mg/dL Phosphorus (2.5-4.5) mg/dL Alkaline Phosphatase 264 H (38-126) U/L Total Protein 4.9 L (6.3-8.2) g/dL Albumin 2.0 L (3.5-5.0) g/dL Albumin (PEP) (3.80-4.90) g/dL Ushjs-0-Dklfwirmb (0.10-0.40) g/dL Assessment and Plan Plan: Assessment: 1. Acute kidney injury secondary to hemodynamic ATN. No hydronephrosis noted on CAT scan. Started on hemodialysis August 10, 2023. Last dialysis August 12, 2023. Renal function improving. Creatinine 2.12 today. Nonoliguric. 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 Heme/onc following. 2. Chronic kidney disease stage IIIb with baseline creatinine 1.3-1.5 secondary to nephrosclerosis. 3. Partial small bowel obstruction. Receiving TPN. Surgery following. 4. Metabolic acidosis secondary to acute kidney injury and IV fluids. Better. 5. Atrial tachycardia status post Cardizem drip. On metoprolol. Cardiology following. 6. Anemia. Iron deficiency noted. Receiving IV iron. 7. Hyperkalemia secondary to acute kidney injury. Status post Lokelma. Plan: Maintain TPN. Continue to restrict potassium in feeds. Avoid nephrotoxins. Continue to monitor renal function and urine output. Maintain Dow catheter. Preserved EF noted on echo. Okay to discontinue permacath. Lasix 20 mg IV once today.
[2023-08-19] MEDS: LIDOCAINE 1% INJ 10MG/ML (20 ML MDV) SQ ONE (11:57)
[2023-08-19] MEDS: FUROSEMIDE 10 MG/ML 2 ML VIAL IV ONE (11:58)
[2023-08-19 12:03] LABS: Glucose,Whole Blood 114 mg/dL (70-110)
--- NOTE | 2023-08-19 15:08 | P.PN ---
Subjective Progress Note Date: 08/19/23 This is a 83-year-old male patient with a known history of coronary artery disease with previous stent placement, dementia, hypertension, hyperlipidemia, hypothyroidism, non-smoker who presented here to the emergency room on 08/01/2023 with abdominal pain. He had been followed by surgical services. He did have a nasogastric tube which had approximately 2100 cc output once put in. However the patient inadvertently pulled it out last night. Today he had developed increased abdominal discomfort, tachycardia and shortness of breath. We were consulted for possible transfer to the ICU. He is seen today on the regular medical floor. He is awake and alert. He denies any pain at rest. He is tender to palpation. He is tachycardic, sinus. Currently afebrile. Continue O2 saturations in the mid 90s on 3 L/min per nasal cannula. Blood pressure stable. Blood cultures reveal no growth. White count 8.5. Hemoglobin 12.6. Platelets 373. Sodium 139. Potassium 4.6. Bicarb 14. BUN 34. Creatinine 3.11. Glucose 88. Amylase 73. Lipase 49. CT scan of the abdomen today revealed bowel obstruction pattern. Small amount of free fluid. Chest x-ray reveals no acute cardiopulmonary process. A nasogastric tube has been reinserted and in good position. He is currently on Zosyn. Patient was seen and examined today on 08/05/2023, patient is doing much better today compared to the last 2 days, less abdominal pain, no nausea no vomiting, continues to have nasogastric tube in place.WBC count is 9.9 hemoglobin 11.3 basic metabolic profile is normal however his renal functioning is worse with BUN up to 69 creatinine 5.60, and that is being addressed by nephrology on the case. His acute kidney injury is felt to be related to hemodynamic ATN, no hydronephrosis on CT of the abdomen, patient does have history of chronic kidney disease stage IIIb. Patient is on Cardizem drip now for atrial tachycardia. And cardiology is following Reevaluate today on 08/06/23, patient pulled his nasogastric tube yesterday, continues to have abdominal distention and abdominal pain. Apparently multiple attempts by nurses to place the nasogastric tube were unsuccessful. Surgery is to address the nasogastric tube placement and or exploratory laparotomy on this patient to relieve his bowel obstruction.WBC count today is 8.4 hemoglobin 10.4, basic metabolic profile is normal renal profile is worsening with a BUN of 85 creatinine 6.08 and his renal profile is being addressed by nephrology on the case Patient was reevaluated today on 08/07/2023, continues to have abdominal pain, continues to have small bowel obstruction, and now he is developing worsening renal disease. From the looks of it, patient may be heading towards dialysis. Patient was seen by Dr. Truong today, and I believe he is recommending exploratory laparotomy after he is seen by Dr. Goodman tomorrow. Continues to have decent urine output, 600 cc in the last 8 hours. Could not have a nasogastric tube placed back, patient is getting in Progress note dated August 08, 2023. 83-year-old male seen in room 378. The patient is currently on 2 L of oxygen. The patient is getting dextrose with half-normal saline at 100 cc an hour. He does have a significantly tender abdomen, anytime he burps, or coughs. Also, he is tender on palpation. Current labs include a white count 9.5, hemoglobin 11.4, hematocrit 36, and a platelet count of 343,000. Sodium 143, potassium 4.2, chlorides 107, CO2 27, BUN 93, creatinine 5.62. Calcium is 8, with a phosphorus of 5.4. Glucose is 97. Blood cultures are negative. Progress note dated August 09, 2023. 83-year-old male seen today in room 378. The patient is currently on 3 L of oxygen. NG tube remains in place. He is getting D5 with half-normal saline at 100 cc an hour. The patient has significant abdominal pain on palpation of the abdomen. Labs today include a white count 9.3, hemoglobin 10.8, hematocrit 33.9, and a platelet count of 355,000. Sodium 140, potassium 4.4, chlorides 110, CO2 22, BUN 87, and creatinine 5.53. Glucose is 116. Albumin is 2. All microbiologic sampling is thus far negative. Progress note dated August 10, 2023. 83-year-old male seen again in room 378. The patient again pulled out his NG tube. The patient is on room air. The patient is getting TPN at 30 cc an hour. The patient still has significant abdominal discomfort on palpation. I count 10.5, hemoglobin 10.7, hematocrit 33.8, and platelet count is 384,000. Sodium 140, potassium 3.8, chlorides 107, CO2 20, anion gap 13, BUN 92, creatinine 5.60. Glucose is 123. Magnesium 1.9. Phosphorus 5.2. Progress note dated August 11, 2023. 83-year-old male seen today in room 377. Currently, the patient is receiving hemodialysis. He is on room air. The patient is a DO NOT RESUSCITATE patient. He is getting TPN at 48 cc an hour. He continues on Eraxis, and Zosyn. No new laboratory data today as yet, other than a glucose of 106. Chest x-ray from yesterday shows some mild streaky basilar atelectasis. Progress note dated August 12, 2023. 83-year-old male, seen in room 377. Currently, the patient is on room air. The patient is getting TPN at 48 cc an hour. He continues on Eraxis, and meropenem. Current labs include a sodium 133, potassium 3.2, chlorides 102, CO2 24, BUN 37, creatinine 2.53. Glucose is 128. Calcium 7.5. Albumin 1.9. The patient does not appear to be as tender, on palpation of the abdomen, as he has been, on previous days. Progress note dated August 13, 2023. 83-year-old male seen today in room 377. The patient continues on room air. S aturations are 94%. The rest of his vital signs are relatively stable. The patient continues on TPN at 48 cc an hour, and D5.45, at 100 cc an hour. He also continues on meropenem, and the antifungal, and Eraxis. Current laboratory data includes a sodium 131, potassium 3.3, chlorides 101, CO2 25, BUN 23, creatinine 1.96. Glucose is 115. Albumin is 1.9. Wound cultures were positive for Enterobacter aerogenes, Marybeth albicans, and Enterococcus faecalis. The patient is seen today August 14, 2023 in follow-up on the regular medical floor. He is currently resting in bed. He denies any worsening abdominal pain. He is maintaining O2 saturations in the 90s on room air. He has D5 W and 0.45 normal saline at 100 MLS per hour. He remains on TPN at 40 MLS per hour. Wound cultures were positive for Enterobacter aerogenes, Marybeth albicans, Enterococcus faecalis. White count 11.4. Hemoglobin 9.5. Platelets 358. Sodium 130. Potassium 3.8. Bicarb 25. BUN 28. Creatinine 2.29. Glucose 98. C-reactive protein 6.5. He is continued on meropenem and Eraxis. Continued on bronchodilators. Heparin for DVT prophylaxis. On today's evaluation of 08/15/2023, the patient is being seen for a follow-up. The patient had a complicated bowel obstruction with left lower quadrant pain. The patient underwent a robotic laparoscopic lysis of adhesions and decompression enterostomy. Intraoperatively, the patient was found to have severe sigmoid diverticulosis without diverticulitis. There was severe small bowel diverticulosis involving the jejunum and there was volvulus in the right lower quadrant that was reduced. There was mesenteric adhesions and multiple pelvic adhesions involving the sigmoid colon that was released. Decompression of the bowel was done. Intra-abdominal cultures turned out to be positive for Enterobacter and Enterococcus faecium. As such, the patient could have had a component of peritonitis. The patient is currently on broad-spectrum antibiotics. The patient is currently on a combination of meropenem and Eraxis. The patient is also on TPN for nutritional support. He is resting comfortably in bed. No signs of any respiratory distress. On 2 L of oxygen by nasal cannula with a pulse ox of 98%. The blood work shows a WBC count 13.9 with a hemoglobin 9.1 and a platelet count of 453. BUN is at 32 with a creatinine of 2.6 and the patient been seen by nephrology. The patient is undergoing dialysis and last dialysis was done on 08/12/2023 and a dialysis currently on hold and the renal function is being monitored very closely. Dow catheter is in place. On today's evaluation of 08/16/2023, I am seeing the patient for a follow-up. The patient is resting comfortably in bed. Continues to have some abdominal pain. This was discussed with the general surgical team and it was thought that his abdominal exam was essentially benign. The patient has bowel sounds and the patient is also passing mucoid bowel movements. White cell count of 15.4 with a hemoglobin of 8.3. There is some mild uptrending of his white cell count count over the past 48 hours. Platelet count is at 477, BUN is 35 with a creatinine of 2.5 which is essentially stable compared to yesterday and a sodium levels at 130. He remains on Eraxis and meropenem. He remains on TPN for nutritional support. No signs of any respiratory distress and the patient is on 2 L of oxygen by nasal cannula with a pulse ox of 99%. General surgery remains on the case. On today's evaluation of 08/17/2023, the patient is taking some clear liquid diet and he is also given some soft mechanically managed diet. He is stooling. However, he is having some ongoing abdominal tenderness on examination. Bowel sounds are present. Surgical wounds that are directing and intact. No resp iratory distress. Renal function remains impaired with a BUN of 37 and a creatinine of 2.57 and a sodium levels at 130 with a potassium level of 5.6. The patient is being seen by nephrology. He has sustained an acute kidney injury on top of his chronic kidney failure. He is still on TPN for nutritional support. His last hemodialysis was on on 08/12/2023. Nephrology on the case. The patient remains on Eraxis and IV meropenem. Afebrile. Hemodynamically stable. Currently on oxygen at 2.5 L. No signs of any respiratory distress. He is a poor historian in general. On today's evaluation on 08/18/2023, the patient continues to have some abdominal distention and abdominal pain. He is a very poor historian. He cannot provide adequate description of the symptoms that he is encountering. However on examination, he does have some direct tenderness over his entire abdomen. Based on that, abdominal x-ray was done and the patient was found to have diffuse air- filled loops of colon and small bowel consistent with stable adynamic ileus. Also, repeat blood work from today showed a WBC count of 12 with a hemoglobin of 7.9 and a platelet count of 557. BUN is at 38 with a creatinine of 2.3 and sodium levels at 133 with a potassium level of 5.6. The patient is being seen by general surgery. The patient remains on TPN for nutritional support. The patient has no active respiratory issues for now. The patient is currently on oxygen at 2 L/min nasal cannula with a pulse ox of 98%. Afebrile. Hemodynamically stable. Remains on Eraxis and meropenem. Remains on TPN for nutritional support. IV fluids are in the form of normal saline at rate of 50 cc an hour. Oral intake remains quite diminished. The patient was also seen by nephrology. He has an acute on top of chronic kidney injury currently hemodialysis dependent. His last dialysis was on 08/12/2023. No further dialysis been done since. He is being assessed on a daily basis. Dow catheter is in place. Echocardiogram shows a preserved LV function. On today's evaluation of 08/19/2023, patient is being seen for a follow-up. Oral intake is still diminished and the patient remains on TPN for nutritional support. His blood work remained stable. Creatinine continues to improve and is currently down to 2.1 with a BUN of 39 and sodium levels at 133 with a potassium level of 5.3. WBC count is at 12 with a hemoglobin of 7.5. The patient is currently on oxygen at 2 L with a pulse ox of 94 to 97%. No other significant events overnight. The patient remains on Eraxis and meropenem. The patient remains on TPN for nutritional support. IV fluids are running at a rate of 50 cc an hour. Patient is being seen by general surgery regarding postoperative care. He is felt to have some degree of ileus. Conservative management has been recommended. Objective - Vital Signs Vital signs: Vital Signs Temp 97.3 F L 08/19/23 11:20 Pulse 90 08/19/23 11:20 Resp 18 08/19/23 11:20 BP 154/84 08/19/23 11:20 Pulse Ox 97 08/19/23 11:20 FiO2 Intake & Output 08/18/23 08/19/23 08/19/23 18:59 06:59 18:59 Output Total 1200 675 Balance -1200 -675 Output: Urine 1200 675 Other: Voiding Method Indwelling Catheter Indwelling Catheter Indwelling Catheter - Exam An 83-year-old male patient, on room air, no acute distress. No respiratory difficulty. The patient is currently on 2 L of oxygen by nasal cannula. HEENT examination is grossly unremarkable. Mucous membranes are moist. No oral lesions. Neck supple. Full range of motion. No adenopathy thyromegaly or neck vein distention. Cardiovascular examination reveals regular rhythm rate. S1-S2 normal. No S3 or S4. No discernible murmur noted. Lungs reveal clear breath sounds. Breath sounds are equal bilaterally. No adventitious lung sounds including wheezes rhonchi or crackles. Abdomen is tender on palpation. No bowel sounds. Hypoactive bowel sounds. Surgical wound site are all dry clean and intact. Extremities are intact. No cyanosis clubbing or edema. Skin is without rash or lesion. Neurologic examination is brief but nonfocal. - Labs CBC & Chem 7: 08/18/23 10:28 08/19/23 06:55 Labs: Abnormal Lab Results - Last 24 Hours (Table) 08/16/23 08/18/23 08/18/23 Range/Units 10:05 10:28 17:35 Sodium 133 L (137-145) mmol/L Potassium 5.6 H 5.3 H (3.5-5.1) mmol/L Carbon Dioxide 20 L (22-30) mmol/L BUN 38 H (9-20) mg/dL Creatinine 2.38 H (0.66-1.25) mg/dL Glucose 108 H (74-99) mg/dL POC Glucose (mg/dL) (70-110) mg/dL Calcium 7.7 L (8.4-10.2) mg/dL Phosphorus 4.9 H (2.5-4.5) mg/dL Alkaline Phosphatase 235 H (38-126) U/L Total Protein 4.8 L (6.3-8.2) g/dL Albumin 1.9 L (3.5-5.0) g/dL Albumin (PEP) 1.73 L (3.80-4.90) g/dL Kbvhf-[id number]-Xkzsgilew 0.52 H (0.10-0.40) g/dL 08/19/23 08/19/23 08/19/23 Range/Units 00:10 06:15 06:55 Sodium 133 L (137-145) mmol/L Potassium 5.3 H (3.5-5.1) mmol/L Carbon Dioxide (22-30) mmol/L BUN 39 H (9-20) mg/dL Creatinine 2.12 H (0.66-1.25) mg/dL Glucose 106 H (74-99) mg/dL POC Glucose (mg/dL) 114 H 114 H (70-110) mg/dL Calcium 7.8 L (8.4-10.2) mg/dL Phosphorus (2.5-4.5) mg/dL Alkaline Phosphatase 264 H (38-126) U/L Total Protein 4.9 L (6.3-8.2) g/dL Albumin 2.0 L (3.5-5.0) g/dL Albumin (PEP) (3.80-4.90) g/dL Ticbf-7-Sthdbrvdm (0.10-0.40) g/dL Assessment and Plan Plan: Abdominal pain in a patient found to have a bowel obstruction. The patient had bowel obstruction and intraoperatively, the patient was found to have severe sigmoid diverticulosis without diverticulitis, severe small bowel diverticulosis involving the jejunum and volvulus of the right lower quadrant that was reduced and mesenteric adhesions with multiple pelvic adhesions involving the sigmoid colon that were released. Decompression of the bowel was done. The patient has positive intra-abdominal cultures consistent with peritonitis. The patient has positive Enterobacter and Enterococcus faecium currently on a combination of Eraxis and meropenem. The patient receiving TPN for nutritional support. General surgery is on the case. Condition is essentially unchanged compared to yesterday. The patient is having some mild abdominal distention and tenderness. Nevertheless, no significant leukocytosis and the x-ray of the abdomen shows some adynamic ileus. Remains on TPN for nutritional support. Overall condition is unchanged compared to yesterday. Acute hypoxemic respiratory failure secondary to above, history of COPD but is a lifelong non-smoker and the patient is currently on 2 L of oxygen by nasal cannula Acute on chronic kidney injury, received hemodialysis the last hemodialysis session was on 08/12/2023, currently being monitored by nephrology. Creatinine level continues to improve. Mild leukocytosis History of coronary disease with previous stent placement Hypertension Hyperlipidemia Hypothyroidism Dementia Lifelong non-smoker Plan: Monitor the white cell count Monitor renal function creatinine X-ray of the abdomen is showing possibility of adynamic ileus. Gradually advance diet as tolerated to general surgery is on the case management associate potassium level and adjusted to potassium supplements through the TPN Continue TPN for nutritional support General surgery is on the case Remains on meropenem and Eraxis Surgical services are following Physical therapy Monitor electrolytes DNR CODE STATUS We will continue to follow
--- NOTE | 2023-08-19 15:22 | P.PN ---
Subjective Progress Note Date: 08/19/23 Principal diagnosis: Reason for follow-up is fever likely abdominal source Patient is a 83-year-old male with a past medical history significant for coronary disease COPD dementia hypertension hyperlipidemia reflux presenting to the hospital for evaluation of abdominal pain bloating has been diagnosed with the distal small bowel obstruction developing a fever concerning for possible abdominal sepsis prompting this consultation.Patient is status post robotic assisted laparoscopic lysis of adhesion extensive and decompressive enterostomy that was completed on 08/08/2023 On today's evaluation that is 08/19/2023, Patient is afebrile patient is currently on room air and denies having any shortness of breath, the patient denies any chest pain or cough, the patient denies any nausea vomiting abdominal discomfort has decreased intensity no bowel movement today. Patient creatinine is 2.12 CBC was not done today white count was down to 12,000 yesterday Objective - Vital Signs Vital signs: Vital Signs Temp 97.3 F L 08/19/23 11:20 Pulse 91 08/19/23 15:15 Resp 18 08/19/23 15:15 BP 136/74 08/19/23 15:15 Pulse Ox 97 08/19/23 15:15 FiO2 Intake & Output 08/18/23 08/19/23 08/19/23 18:59 06:59 18:59 Intake Total 1008 Output Total 1200 1575 Balance -1200 -567 Weight 79.5 kg Intake: Intake, IV Titration 1008 Amount Mvi, Adult No.4 with Vit 1008 K 10 ml Trace (Conc-1Ml/ Dose) 1 ml Sodium Acetate 30 meq Calcium Gluconate 1 gm Magnesium Sulfate gm 1.5 gm In Amino Acids 5 %/Dextrose 20 % 1,000 ml @ 48 mls/hr IV . [id number] [facility] Rx#:[id number] Output: Urine 1200 1575 Other: Voiding Method Indwelling Catheter Indwelling Catheter Indwelling Catheter - Exam GENERAL DESCRIPTION: An elderly male up in the chair in no distress RESPIRATORY SYSTEM: Unlabored breathing , decreased breath sounds at bases HEART: S1 S2 regular rate and rhythm , ABDOMEN: Soft , no tenderness EXTREMITIES: No edema feet - Labs CBC & Chem 7: 08/18/23 10:28 08/19/23 06:55 Labs: Abnormal Lab Results - Last 24 Hours (Table) 08/18/23 08/19/23 08/19/23 Range/Units 17:35 00:10 06:15 Sodium (137-145) mmol/L Potassium 5.3 H (3.5-5.1) mmol/L BUN (9-20) mg/dL Creatinine (0.66-1.25) mg/dL Glucose (74-99) mg/dL POC Glucose (mg/dL) 114 H 114 H (70-110) mg/dL Calcium (8.4-10.2) mg/dL Alkaline Phosphatase (38-126) U/L Total Protein (6.3-8.2) g/dL Albumin (3.5-5.0) g/dL 08/19/23 08/19/23 Range/Units 06:55 12:01 Sodium 133 L (137-145) mmol/L Potassium 5.3 H (3.5-5.1) mmol/L BUN 39 H (9-20) mg/dL Creatinine 2.12 H (0.66-1.25) mg/dL Glucose 106 H (74-99) mg/dL POC Glucose (mg/dL) 114 H (70-110) mg/dL Calcium 7.8 L (8.4-10.2) mg/dL Alkaline Phosphatase 264 H (38-126) U/L Total Protein 4.9 L (6.3-8.2) g/dL Albumin 2.0 L (3.5-5.0) g/dL Assessment and Plan (1) Fever Current Visit: Yes Status: Acute Code(s): R50.9 - FEVER, UNSPECIFIED SNOMED Code(s): 312750687 (2) Leukocytosis Current Visit: Yes Status: Acute Code(s): D72.829 - ELEVATED WHITE BLOOD CELL COUNT, UNSPECIFIED SNOMED Code(s): 501840270 (3) Small bowel obstruction Current Visit: Yes Status: Acute Code(s): K56.609 - UNSP INTESTNL OBST, UNSP TO PARTIAL VERSUS COMPLETE OBST SNOMED Code(s): 303172855 (4) Peritonitis Current Visit: Yes Status: Acute Code(s): K65.9 - PERITONITIS, UNSPECIFIED SNOMED Code(s): 92313834 Plan: 1patient with low-grade fever elevated white count and this patient presented to hospital with abdominal pain and bloating and has been diagnosed with the small bowel obstruction likely etiology for his low-grade fever and elevated white count, the patient is status post laparoscopic lysis of adhesion and enterostomy abdominal cultures obtained which are currently growing Enterococcus drug-resistant Enterobacter and Marybeth 2-patient is afebrile, patient white count is trending down 3-patient to continue with meropenem and Eraxis, monitor clinical course closely Family at the bedside questions answered Dictation was produced using [employer] dictation software. please excuse any gramma tical, word or spelling errors.
--- NOTE | 2023-08-19 15:44 | P.PN ---
Subjective Progress Note Date: 08/19/23 (Severe abdominal pain with small bowel obstruction) Progress note Date of service 08/19/[address] Griffin Patient seen today [id number] and significant discussion for future management with his daughter Edwige and she expressed that she wants to talk to the surgeon Dr. Pinzon and regarding of her father. Patient has abdominal distention high-pitched sound with the tympanitic dullness on percussion as well as severe pain 10/10 in the both right and left lower quadrant which reflected to the whole abdomen. The bowel movement that patient had from high motility with the obstruction and mucousy which is not a bowel movement this is the excretion coming from the colon patient had no resolution of bowel obstruction it does not seem to me like ileus and silent abdomen. After extensive discussion with his daughter and the concern for the prolonged time of illness and the pain which is daughter also noticed when I examined the patient we decided we have to do a CAT scan of the abdomen and the pelvis with Gastrografin. Order was written discussed with the x-ray department is doing it stat. Temperature 97.3 F oral, heart rate 98-94/min regular occasionally irregular, respiratory rate 18/min, blood pressure 154/84. Oxygen saturation 97%. Patient awake alert able to express his pain He has left facial asymmetry which is chronically present with deviation of the angle of the mouth as well as associated with the left upper eyelid drooping which she was considered in the past facial nerve palsy versus stroke however CAT scan did not have any strokes appearance seen by several neurologists across the years. Oropharynx he had natural teeth and he was minimal ability to eat 1-2 spoon. Neck was supple no JVD no thyromegaly no lymphadenopathy and he had right sided subclavian catheter was placed for dialysis still present at this time he has also midline both in the right arm and left arm. Chest is normal breath sounds and no wheezes no rhonchi's Heart was regular sinus rhythm compensated. Abdomen distended, tympanitic tender on light palpation and he has severe pain in both right and left groin was on tolerated examination by my hand. Renal function improved stable at this time no dialysis per nephrology. His creatinine 2.1 to with the EGFR 28 and the BUN 39 but still fluctuating. Alkaline phosphatase 204, total protein 4.9 and albumin 2 with severe nutrition al, protein calorie deficiency with low prealbumin. His potassium is still 5.3 and the adjusting for the TPN no potassium as mentioned by the pharmacy. His blood sugar is 106. Extremities positive pulses and 1+ pitting edema probably secondary to hypoalbuminemia and prolonged starvation. Neurologically stable no new event patient with history of cognitive function impairment with his conscious alert oriented. Able to complain of the pain able to talk to his daughter. Assessment: #1 small bowel obstruction secondary to adhesions. #2 severe abdominal pain still persistent postoperative 3. Abdominal distention, tympanitic with the severe pain 02/15 with no resolution last x-ray was done on 08/18/[address] Orozco and still abnormal and he stated it is ileus however with the high-pitched bowel sounds to me it is obstructive and small bowel and large bowel as well and need for further surgical intervention. 4. Nephrology indicating that he is currently stable no dialysis 5. Cardiac kraft sinus tachycardia improved. 6 severe nutritional protein calorie deficiency and he is on the TPN with intralipids. 7. For intra-abdominal sepsis has been treated with meropenem with multiple antibiotic prior to that and Dr. Mehta infectious disease following the patient. 8. Progressive elevation of alkaline phosphatase. Plan: 1. I did extensively discussion was the daughter who requested to speak to the [place] the surgeon 2. I will order CT scan of the abdomen and pelvis with the Gastrografin for clarification of persistent abdominal pain ileus versus small bowel obstruction 3. Will obtain CBC tomorrow and BMP tomorrow. With the magnesium and phosphorus and uric acid Objective - Vital Signs Vital signs: Vital Signs Temp 97.6 F 08/19/23 15:15 Pulse 91 08/19/23 15:15 Resp 18 08/19/23 15:15 BP 136/74 08/19/23 15:15 Pulse Ox 97 08/19/23 15:15 FiO2 Intake & Output 08/18/23 08/19/23 08/19/23 18:59 06:59 18:59 Intake Total 1008 Output Total 1200 1575 Balance -1200 -567 Weight 79.5 kg Intake: Intake, IV Titration 1008 Amount Mvi, Adult No.4 with Vit 1008 K 10 ml Trace (Conc-1Ml/ Dose) 1 ml Sodium Acetate 30 meq Calcium Gluconate 1 gm Magnesium Sulfate gm 1.5 gm In Amino Acids 5 %/Dextrose 20 % 1,000 ml @ 48 mls/hr IV . [id number] [facility] Rx#:[id number] Output: Urine 1200 1575 Other: Voiding Method Indwelling Catheter Indwelling Catheter Indwelling Catheter - Labs CBC & Chem 7: 08/18/23 10:28 08/19/23 06:55 Labs: Abnormal Lab Results - Last 24 Hours (Table) 08/18/23 08/19/23 08/19/23 Range/Units 17:35 00:10 06:15 Sodium (137-145) mmol/L Potassium 5.3 H (3.5-5.1) mmol/L BUN (9-20) mg/dL Creatinine (0.66-1.25) mg/dL Glucose (74-99) mg/dL POC Glucose (mg/dL) 114 H 114 H (70-110) mg/dL Calcium (8.4-10.2) mg/dL Alkaline Phosphatase (38-126) U/L Total Protein (6.3-8.2) g/dL Albumin (3.5-5.0) g/dL 08/19/23 08/19/23 Range/Units 06:55 12:01 Sodium 133 L (137-145) mmol/L Potassium 5.3 H (3.5-5.1) mmol/L BUN 39 H (9-20) mg/dL Creatinine 2.12 H (0.66-1.25) mg/dL Glucose 106 H (74-99) mg/dL POC Glucose (mg/dL) 114 H (70-110) mg/dL Calcium 7.8 L (8.4-10.2) mg/dL Alkaline Phosphatase 264 H (38-126) U/L Total Protein 4.9 L (6.3-8.2) g/dL Albumin 2.0 L (3.5-5.0) g/dL
--- NOTE | 2023-08-19 15:58 | P.PN ---
Subjective Progress Note Date: 08/19/23 CHIEF COMPLAINT: Abdominal pain HISTORY OF PRESENT ILLNESS: Patient with small bowel obstruction status post robotic assisted laparoscopic lysis of adhesions and decompressive enterostomy, POD#10. Patient is sitting up in bed comfortably. Denies any nausea or vomiting. He is having flatus. Last bowel movement reported on August 16. Family is at bedside. Their questions were answered to the best my ability. Afebrile. Sodium 133 k 5.3 creatinine 2.12 PHYSICAL EXAM: VITAL SIGNS: Reviewed GENERAL: Well-developed in no acute distress. HEENT: No sclera icterus. Extraocular movements grossly intact. Moist buccal mucosa. Head is atraumatic, normocephalic. Hears conversational speech. No nasal drainage. NECK: Supple without lymphadenopathy. CHEST: Non-labored respirations and equal bilateral excursions. CARDIOVASCULAR: Palpable 2+ radial pulses. ABDOMEN: Mildly Distended. No signs of peritonitis. nontender. Incision sites clean dry and intact. MUSCULOSKELETAL: No clubbing or cyanosis. NEUROLOGIC: No focal or lateralizing signs. Cranial nerves II through XII grossly intact. PSYCH: Appropriate affect. Alert and oriented to person, place and time. SKIN: Well perfused. Good skin turgor. ASSESSMENT: 1. Small bowel obstruction due to adhesion, lower pelvis left lower quadrant status post lysis of adhesions and decompressive enterostomy 2. Expected ileus due to physical inactivity, spinal stenosis and chronic back pain 3. Acute renal failure 4. Sigmoid diverticulosis 5. Left lower quadrant abdominal pain 6. Internal hernia pelvis PLAN: -Continue to increase activity level and work with PT OT -Patient's of physical debility, hyponatremia and acute kidney injury agitating abdominal ileus -Continue to monitor -Continue to correct electrolytes -Continue ground diet -Continue TPN -Continue pain management -Continue supportive care -Discussed with patient's sister that it is okay to bring food from home Physician Hoisting Laborer note has been reviewed by physician. Signing provider agrees with the documented findings, assessment, and plan of care. Please see additional documentation below CHIEF COMPLAINT: Abdominal pain HISTORY OF PRESENT ILLNESS: The patient is a 83-year-old male status post lysis of adhesions 08/08/2023. His sister is at bedside. Patient is resting comfortably. Patient has additional spinal stenosis. Patient has had intermittent abdominal pain however the time of assessment unremarkable. Dialysis catheter has been removed. ROS: No fevers or chills. No new chest pain. PHYSICAL EXAM: VITAL SIGNS: Reviewed CONSTITUTIONAL: Well developed and in no acute distress. EYES: Conjuctivae without sclera icterus. Extraocular movements grossly intact. HEAD, EARS, NOSE, THROAT: Moist buccal mucosa. Head is atraumatic, normocephalic. Hears conversational speech. RESPIRATORY: Non-labored respirations and equal bilateral excursions. CARDIOVASCULAR: Palpable 2+ radial pulses. ABDOMEN: Incisions intact. No peritonitis. MUSCULOSKELETAL: No gross deformity of the lower extremities noted. No clubbing. No cyanosis. Tender posterior thighs. SKIN: Good skin turgor. Well perfused. NEUROLOGIC: Cranial nerves II through XII grossly intact. No focal or lateralizing signs. PSYCH: Alert and oriented to person. CLINICAL LABS: Reviewed. WBC 12.0, leukocytosis. Hemoglobin 7.9, anemia. Creatinine improving from 6.38-2.1. ASSESSMENT: 1. Small bowel obstruction due to adhesions with abdominal pain 2. Supraventricular tachycardia 3. Acute onset renal failure 4. Spinal stenosis 5. Ileus PLAN: 1. Family had questions regarding surgical care. At the time of my assessment, patient was stable. Studies more consistent with ileus as he is passing flatus and having bowel movements. 2. I was contacted by dietitian for feeding tube placement. At this time, still recovering with ileus. Feeding tube contraindicated due to ileus 3. Patient does have spinal stenosis which complicates ambulation and causes progressive ileus. Recommend continued activity and movement for ileus. Objective - Vital Signs Vital signs: Vital Signs Temp 97.6 F 08/19/23 15:15 Pulse 91 08/19/23 15:15 Resp 18 08/19/23 15:15 BP 136/74 08/19/23 15:15 Pulse Ox 97 08/19/23 15:15 FiO2 Intake & Output 08/18/23 08/19/23 08/19/23 18:59 06:59 18:59 Intake Total 1008 Output Total 1200 1575 Balance -1200 -567 Weight 79.5 kg Intake: Intake, IV Titration 1008 Amount Mvi, Adult No.4 with Vit 1008 K 10 ml Trace (Conc-1Ml/ Dose) 1 ml Sodium Acetate 30 meq Calcium Gluconate 1 gm Magnesium Sulfate gm 1.5 gm In Amino Acids 5 %/Dextrose 20 % 1,000 ml @ 48 mls/hr IV . [id number] [facility] Rx#:[id number] Output: Urine 1200 1575 Other: Voiding Method Indwelling Catheter Indwelling Catheter Indwelling Catheter - Labs CBC & Chem 7: 08/20/23 08:37 08/20/23 08:37 Labs: Abnormal Lab Results - Last 24 Hours (Table) 08/18/23 08/19/23 08/19/23 Range/Units 17:35 00:10 06:15 Sodium (137-145) mmol/L Potassium 5.3 H (3.5-5.1) mmol/L BUN (9-20) mg/dL Creatinine (0.66-1.25) mg/dL Glucose (74-99) mg/dL POC Glucose (mg/dL) 114 H 114 H (70-110) mg/dL Calcium (8.4-10.2) mg/dL Alkaline Phosphatase (38-126) U/L Total Protein (6.3-8.2) g/dL Albumin (3.5-5.0) g/dL 08/19/23 08/19/23 Range/Units 06:55 12:01 Sodium 133 L (137-145) mmol/L Potassium 5.3 H (3.5-5.1) mmol/L BUN 39 H (9-20) mg/dL Creatinine 2.12 H (0.66-1.25) mg/dL Glucose 106 H (74-99) mg/dL POC Glucose (mg/dL) 114 H (70-110) mg/dL Calcium 7.8 L (8.4-10.2) mg/dL Alkaline Phosphatase 264 H (38-126) U/L Total Protein 4.9 L (6.3-8.2) g/dL Albumin 2.0 L (3.5-5.0) g/dL
[2023-08-19 16:38] LABS: Glucose,Whole Blood 110 mg/dL (70-110)
--- NOTE | 2023-08-19 19:42 | P.PN ---
Subjective Progress Note Date: 08/19/23 Patient resting comfortably in bed at today's visit. Patient complaining of weakness. Hemoglobin 7.9, platelets 557,000. WBC 12.0. Completed 4 doses parenteral iron today Objective - Vital Signs Vital signs: Vital Signs Temp 97.6 F 08/19/23 15:15 Pulse 91 08/19/23 15:15 Resp 18 08/19/23 15:15 BP 136/74 08/19/23 15:15 Pulse Ox 97 08/19/23 15:15 FiO2 Intake & Output 08/18/23 08/19/23 08/19/23 18:59 06:59 18:59 Intake Total 1008 Output Total 1200 1575 Balance -1200 -567 Weight 79.5 kg Intake: Intake, IV Titration 1008 Amount Mvi, Adult No.4 with Vit 1008 K 10 ml Trace (Conc-1Ml/ Dose) 1 ml Sodium Acetate 30 meq Calcium Gluconate 1 gm Magnesium Sulfate gm 1.5 gm In Amino Acids 5 %/Dextrose 20 % 1,000 ml @ 48 mls/hr IV . [id number] [facility] Rx#:[id number] Output: Urine 1200 1575 Other: Voiding Method Indwelling Catheter Indwelling Catheter Indwelling Catheter - Constitutional General appearance: Present: no acute distress - EENT Eyes: Present: anicteric sclerae, EOMI ENT: Present: hearing grossly normal - Respiratory Details: breathing is even and unlabored - Cardiovascular Details: skin warm and dry - Integumentary Integumentary: Present: pale. Absent: cyanotic - Musculoskeletal Musculoskeletal: Present: generalized weakness - Psychiatric Psychiatric: Present: A&O x's 3 - Labs CBC & Chem 7: 08/18/23 10:28 08/19/23 06:55 Labs: Abnormal Lab Results - Last 24 Hours (Table) 08/18/23 08/19/23 08/19/23 Range/Units 17:35 00:10 06:15 Sodium (137-145) mmol/L Potassium 5.3 H (3.5-5.1) mmol/L BUN (9-20) mg/dL Creatinine (0.66-1.25) mg/dL Glucose (74-99) mg/dL POC Glucose (mg/dL) 114 H 114 H (70-110) mg/dL Calcium (8.4-10.2) mg/dL Alkaline Phosphatase (38-126) U/L Total Protein (6.3-8.2) g/dL Albumin (3.5-5.0) g/dL 08/19/23 08/19/23 Range/Units 06:55 12:01 Sodium 133 L (137-145) mmol/L Potassium 5.3 H (3.5-5.1) mmol/L BUN 39 H (9-20) mg/dL Creatinine 2.12 H (0.66-1.25) mg/dL Glucose 106 H (74-99) mg/dL POC Glucose (mg/dL) 114 H (70-110) mg/dL Calcium 7.8 L (8.4-10.2) mg/dL Alkaline Phosphatase 264 H (38-126) U/L Total Protein 4.9 L (6.3-8.2) g/dL Albumin 2.0 L (3.5-5.0) g/dL Assessment and Plan (1) Abdominal pain Current Visit: Yes Status: Acute Code(s): R10.9 - UNSPECIFIED ABDOMINAL PAIN SNOMED Code(s): 19965253 (2) Diverticulitis Current Visit: Yes Status: Acute Code(s): K57.92 - DVTRCLI OF INTEST, PART UNSP, W/O PERF OR ABSCESS W/O BLEED SNOMED Code(s): 097677623 (3) MGUS (monoclonal gammopathy of unknown significance) Current Visit: Yes Status: Acute Priority: Medium Code(s): D47.2 - MONOCLONAL GAMMOPATHY SNOMED Code(s): 003952121 Plan: MGUS: -Nephrology workup revealed Elevated K/L light chain, with normal ratio -Immunofixation reporting IgG lambda paraproteinemia. SPEP showing m spike 0.34 -Hemoglobin 7.9. Has not required transfusions this admission t -Iron studies show low iron saturation with a high end of normal ferritin, possibly some mild iron deficiency. Completed 4 doses parenteral iron -Paraproteinemia labs, consistent with MGUS. Will schedule clinic f/u in 3 months to recheck studies -Not felt that at this time the patient's changes in blood counts are related to a paraproteinemia, more suggestive of acute conditions that patient is experiencing. Would expect counts to recover to baseline as patient recovers -Continue to monitor CBC. Transfuse for hgb less than [address] De La Torre spoke to IM team regarding case Doctor attests: I performed a history and physical examination of this patient, developed impression and plan of care. Discussed with dictator. I agree with dictators note, documented as a scribe.
--- NOTE | 2023-08-19 20:36 | OP ---
OPERATIVE REPORT DATE OF SERVICE : PREOPERATIVE DIAGNOSIS: Renal failure. PROCEDURE: Removal of dialysis catheter right jugular approach. DESCRIPTION OF PROCEDURE: The patient was seen, right side of the neck and chest was prepped and drapes applied in a sterile manner. 1% lidocaine infiltrated in right side of the chest wall and a small incision was made at the exit site of the catheter. Catheter was removed. Pressure dressing applied. Patient tolerated the procedure well. MMODL / IJN: [id number] /
[2023-08-19] MEDS: IOPAMIDOL CONTRAST (ORAL USE) VIAL PO PRN (20:37)
--- NOTE | 2023-08-19 23:04 | CT ---
EXAM: CT Abdomen and Pelvis Without Intravenous Contrast CLINICAL HISTORY: ITS.REASON CT Reason: Abdomen and pelvis severe pain with Gastrografin TECHNIQUE: Axial computed tomography images of the abdomen and pelvis without intravenous contrast. CTDI is 13.2 mGy and DLP is 829.4 mGy-cm. This CT exam was performed using one or more of the following dose reduction techniques: automated exposure control, adjustment of the mA and/or kV according to patient size, and/or use of iterative reconstruction technique. COMPARISON: 08/18/2023. 08/04/2023. FINDINGS: Lung bases: Presumed subsegmental atelectasis posteriorly near the lung bases. Pleural space: Moderate to large bilateral pleural effusions. Consider congestive heart failure. Heart: There is cardiomegaly. ABDOMEN: Liver: Fatty liver. Gallbladder and bile ducts: Status post cholecystectomy. No ductal dilation. Pancreas: See below. Spleen: Punctate calcifications the spleen is indicative of previous granulomatous disease. Adrenals: The adrenal glands, the head, body, tail of the pancreas are unremarkable. Kidneys and ureters: Nonspecific stranding about the perinephric spaces. No obstructing stones. Stomach and bowel: Dilated fluid-filled loops of small bowel are noted extending to the right lower quadrant. The possibility of small bowel obstruction should be considered. Moderate quantity of ingested material in the stomach. Moderate quantity of stool throughout the colon. Wall thickening of the mid sigmoid colon extending to the rectum. Diverticulosis. PELVIS: Appendix: No findings to suggest acute appendicitis. Bladder: Dow catheter noted in place within the bladder which is underdistended. No stones. Reproductive: Unremarkable as visualized. ABDOMEN and PELVIS: Intraperitoneal space: Unremarkable. No free air. No significant fluid collection. Bones/joints: No acute fracture. No dislocation. Soft tissues: Severe anasarca. Ischiorectal fat is clean. Vasculature: Atherosclerotic disease and ASCVD is noted. No abdominal aortic aneurysm. Lymph nodes: Unremarkable. No pelvic or inguinal lymphadenopathy. IMPRESSION: 1. Dilated loops of small bowel are noted extending to the right lower quadrant raising concern for small bowel obstruction. Small bowel follow- through with serial imaging is advised for follow-up. Surgical consultation is also advised. 2. Severe anasarca. 3. Cardiomegaly and bilateral pleural effusions. Consider congestive heart failure. 4. Status post cholecystectomy. 5. Nonspecific stranding about the perinephric spaces. 6. Distention of the rectosigmoid with stool. Consider constipation. 7. Diverticulosis without diverticulitis. 8. The appendix is unremarkable. 9. Consider proctocolitis. <MYCVCSECTION> Communications: 08/19/23 23:19 Call Doctor Regarding Above results, called Dr. Griffin on 08/18 23:19 (-04:00)
[2023-08-19 23:57] LABS: Glucose,Whole Blood 94 mg/dL (70-110)
[2023-08-20 06:12] LABS: Glucose,Whole Blood 87 mg/dL (70-110)
[2023-08-20 09:18] LABS: Basophils % (A) 0 %; Eosinophils # (A) 0.5 k/uL (0-0.7); Eosinophils % (A) 4 %; HCT 27.4 % (39.0-53.0); HGB 8.7 gm/dL (13.0-17.5); Lymphocytes # (A) 1.1 k/uL (1.0-4.8); Lymphocytes % (A) 8 %; MCH 28.2 pg (25.0-35.0); MCHC 31.6 g/dL (31.0-37.0); MCV 89.1 fL (80.0-100.0); Mean Platelet Volume 7.4; Monocytes # (A) 0.8 k/uL (0-1.0); Monocytes % (A) 6 %; Neutrophils # (A) 11.3 k/uL (1.3-7.7); Neutrophils % (A) 80 %; Platelet Count 831 k/uL (150-450); RBC 3.08 m/uL (4.30-5.90); RDW 14.4 % (11.5-15.5); WBC 14.2 k/uL (3.8-10.6)
[2023-08-20 09:42] LABS: ALT 43 U/L (4-49); AST 80 U/L (17-59); African American GFR (CKD) 33 (>60 ml/min/1.73 sqM); Albumin 2.4 g/dL (3.5-5.0); Alkaline Phosphatase 496 U/L (38-126); Anion Gap 4 mmol/L; Blood Urea Nitrogen 39 mg/dL (9-20); Calcium 8.3 mg/dL (8.4-10.2); Carbon Dioxide 22 mmol/L (22-30); Chloride 109 mmol/L (98-107); Glucose 86 mg/dL (74-99); Non-African American GFR(CKD) 29 (>60 ml/min/1.73 sqM); Phosphorus 3.8 mg/dL (2.5-4.5); Potassium 5.2 mmol/L (3.5-5.1); Sodium 135 mmol/L (137-145); Total Bilirubin 0.3 mg/dL (0.2-1.3); Total Protein 5.5 g/dL (6.3-8.2)
--- NOTE | 2023-08-20 09:58 | P.PN ---
Subjective Patient is seen in follow-up for acute kidney injury on chronic kidney disease, currently hemodialysis dependent. Receiving TPN. On room air. Hemodynamically stable. Last dialysis August 12, 2023. Nonoliguric. Poor historian. Vital signs are stable. General: No acute distress. HEENT: Head exam is unremarkable. LUNGS: No audible rhonchi or wheezes. HEART: Rate and Rhythm are regular. ABDOMEN: Tender to touch. EXTREMITITES: No edema. Objective - Vital Signs Vital signs: Vital Signs Temp 98.2 F 08/20/23 08:30 Pulse 100 08/20/23 09:03 Resp 36 H 08/20/23 09:03 BP 160/80 08/20/23 08:30 Pulse Ox 96 08/20/23 08:51 FiO2 Intake & Output 08/19/23 08/20/23 08/20/23 18:59 06:59 18:59 Intake Total 1126 Output Total 2275 1100 Balance -1149 -1100 Weight 79.5 kg Intake: Intake, IV Titration 1008 Amount Mvi, Adult No.4 with Vit 1008 K 10 ml Trace (Conc-1Ml/ Dose) 1 ml Sodium Acetate 30 meq Calcium Gluconate 1 gm Magnesium Sulfate gm 1.5 gm In Amino Acids 5 %/Dextrose 20 % 1,000 ml @ 48 mls/hr IV . [id number] [facility] Rx#:[id number] Oral 118 Output: Urine 2275 1100 Other: Voiding Method Indwelling Catheter Indwelling Catheter Indwelling Catheter # Bowel Movements 2 1 - Labs CBC & Chem 7: 08/20/23 08:37 08/20/23 08:37 Labs: Abnormal Lab Results - Last 24 Hours (Table) 08/19/23 08/20/23 08/20/23 Range/Units 12:01 08:37 08:37 WBC 14.2 H (3.8-10.6) k/uL RBC 3.08 L (4.30-5.90) m/uL Hgb 8.7 L (13.0-17.5) gm/dL Hct 27.4 L (39.0-53.0) % Plt Count 831 H (150-450) k/uL Neutrophils # 11.3 H (1.3-7.7) k/uL Sodium 135 L (137-145) mmol/L Potassium 5.2 H (3.5-5.1) mmol/L Chloride 109 H (98-107) mmol/L BUN 39 H (9-20) mg/dL Creatinine 2.05 H (0.66-1.25) mg/dL POC Glucose (mg/dL) 114 H (70-110) mg/dL Calcium 8.3 L (8.4-10.2) mg/dL AST 80 H (17-59) U/L Alkaline Phosphatase 496 H (38-126) U/L Total Protein 5.5 L (6.3-8.2) g/dL Albumin 2.4 L (3.5-5.0) g/dL Assessment and Plan Plan: Assessment: 1. Acute kidney injury secondary to hemodynamic ATN. No hydronephrosis noted on CAT scan. Started on hemodialysis August 10, 2023. Last dialysis August 12, 2023. Permacath removed August 19, 2023. Renal function improving. Creatinine 2.05 today. Nonoliguric. 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 Heme/onc following. 2. Chronic kidney disease stage IIIb with baseline creatinine 1.3-1.5 secondary to nephrosclerosis. 3. Partial small bowel obstruction. Receiving TPN. Surgery following. 4. Metabolic acidosis secondary to acute kidney injury and IV fluids. Better. 5. Atrial tachycardia status post Cardizem drip. On metoprolol. Cardiology following. 6. Anemia. Iron deficiency noted - s/p IV iron. 7. Hyperkalemia secondary to acute kidney injury. Stable. Plan: Maintain TPN. Continue to restrict potassium in feeds. Avoid nephrotoxins. Continue to monitor renal function and urine output. Maintain Dow catheter. Preserved EF noted on echo. Okay to discontinue permacath. Repeat Lasix 20 mg IV once today.
[2023-08-20] MEDS: FUROSEMIDE 10 MG/ML 2 ML VIAL IV ONE (10:29)
[2023-08-20 11:39] LABS: Glucose,Whole Blood 95 mg/dL (70-110)
[2023-08-20] MEDS: bisacodyL 10 MG SUPP RECTAL STA (12:21)
--- NOTE | 2023-08-20 14:08 | P.PN ---
Subjective Progress Note Date: 08/20/23 (CT scan of the abdomen pelvis acute small bowel obstruction with anasarca) Progress note date of service 08/20/[address] Griffin. Patient seen today [id number] I discussed the problem with the patient with his caregiver his daughter Edwige with the concern she was requesting to talk to Dr. Pinzon. Because of the concern over the prolonged vent his illness with the small bowel obstruction since the August 08, 2023 when the patient underwent robotic laparoscopic surgery with lysis of adhesion, Patient continued to have abdominal pain and distention and they thought that he had ileus however the physical finding with the severe pain 10/10 of the abdomen especially in the groin area and a high-pitched bowel sounds and tenderness on palpation With the concern of his daughters we did a CT scan abdomen and pelvis and the result communicated with the nursing staff last night about 11 p.m. and requested that communication with Dr. Pinzon which the nurse indicating that they did. Also as I talked on the phone with the remote radiologist who read the case Thai Caban with his impression: 1. Dilated loops of the small bowel are noted extended to the right lower quadrant raising the concern for the small bowel obstruction. 2. Severe anasarca 3. Cardiomegaly with bilateral pleural effusion 4. Status post cholecystectomy 5. Nonspecific stranding about perinephric space 6. Distention of the rectosigmoid with the stools consider constipation. 7. Diverticulosis without diverticulitis 8. Appendix is unremarkable 9. Consider proctocolitis. Today so far patient was not seen yet by Dr. Pinzon. And her covering on- call for the weekend José Miguel Holden surgeon he reviewed the case and order rectal suppository for the part of the colon stool retention however the patient main problem is the acute small bowel obstruction has been there for the last 12 days. It is appearing to be clinically small bowel obstruction not resolved, in my opinion patient need surgical exploration laparotomy otherwise the outcome will be severely compromised I did discuss with his caregiver and she is agreeable even with surgical intervention however does depend on the surgeon and coverage for their decision and opinion. Also the CT was indicating anasarca severe with the possible bowel infarction and reaction to that Vital sign: Temperature 98.2 thrombolytic, heart rate 107 bpm, respiratory rate 36/min, blood pressure 161/77., Patient on 2 L nasal cannula with the pulse ox 99%. Laboratories: White count is increasing 14.2, hemoglobin 8.7 with a hematocrit 27.4 and platelet count 831. Neutrophil 11.3 Chemistry: Sodium 135, potassium 5.2, chloride 109, BUN 39, creatinine 2.05 GFR is 29, glucose 86 and POC glucose 95. Now the liver enzymes started to appear elevation with AST 80 and yesterday on 08/19/2023 his AST was 41. ALT 43. Now on the alkaline phosphatase 496 with the progressive elevation Total protein 5.5 and albumin 2.4 and patient on Intralipid and TPN per surgical team with the severe protein calorie deficiency and prolonged starvation seconda ry to small bowel obstruction. Physical exam Patient confused disoriented with the I am purposely moving the office upper extremities. Head and neck no changes with the left facial abnormality is chronic as mentioned in my note Chest breath sounds normal Heart intermittent sinus tachycardia The abdomen: Distended tender on palpation in the 4 quadrant tympanitic and percussion with a high-pitched sound which is consistent with the small bowel obstruction. They found that patient really did not have a bowel movement as I mentioned in my previous note it was a remanent of the sigmoid and the rectum with the mucousy stools today the José Miguel Holden give some rectal suppository however the main concern of the small bowel obstruction and could be infarction was not addressed by the on-call surgeon. Extremities: Appear to be no edema in the ankle and patient wearing the thrombotic stocking. Assessment 1. Severe small bowel obstruction and worsening of his condition 2. Leukocytosis and probably in the following the bowel obstruction question about infarction of the bowel considered. 3. 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 De La Torre hematology oncology 4. CT scan of the abdomen and pelvis was notified to Dr. Pinzon last night on 08/19/2023. 5. Severe protein calorie deficiency on TPN and Intralipid 6. No potassium in the supplement, however still potassium mildly elevated 7. Now we have significant elevation of the alkaline phosphatase 8. Acute kidney injury, followed by hemodialysis, currently stop with the improvement of renal function and drop in the creatinine which is nonoliguric secondary to ATN. 9. I do think that the severe hypoalbuminemia and anasarca as well as effusion in the pleura bilateral presented as congestive heart failure and the CT scan. Assessment: 1. Patient is worsening general condition and worsening the outcome with the above data 2. Will continue monitoring however the solution or the possible intervention is exploratory laparotomy. 3. Patient followed by several consultants, cardiology, pulmonary, nephrology, and infectious disease however the main solution in the hand of general surgeon Dr. Pinzon. Which I do not see any specific note from Dr. Pinzon and the PA note Not directing us for future plan for the serious patient condition Objective - Vital Signs Vital signs: Vital Signs Temp 98.2 F 08/20/23 12:00 Pulse 107 H 08/20/23 12:41 Resp 36 H 08/20/23 12:30 BP 161/77 08/20/23 12:00 Pulse Ox 99 08/20/23 12:00 FiO2 Intake & Output 08/19/23 08/20/23 08/20/23 18:59 06:59 18:59 Intake Total 1126 947.2 Output Total 2275 1100 800 Balance -1149 -1100 147.2 Weight 79.5 kg Intake: Intake, IV Titration 1008 947.2 Amount Mvi, Adult No.4 with Vit 1008 947.2 K 10 ml Trace (Conc-1Ml/ Dose) 1 ml Sodium Acetate 30 meq Calcium Gluconate 1 gm Magnesium Sulfate gm 1.5 gm In Amino Acids 5 %/Dextrose 20 % 1,000 ml @ 48 mls/hr IV . [id number] [facility] Rx#:[id number] Oral 118 Output: Urine 2275 1100 800 Other: Voiding Method Indwelling Catheter Indwelling Catheter Indwelling Catheter # Bowel Movements 2 1 - Labs CBC & Chem 7: 08/20/23 08:37 08/20/23 08:37 Labs: Abnormal Lab Results - Last 24 Hours (Table) 08/20/23 08/20/23 Range/Units 08:37 08:37 WBC 14.2 H (3.8-10.6) k/uL RBC 3.08 L (4.30-5.90) m/uL Hgb 8.7 L (13.0-17.5) gm/dL Hct 27.4 L (39.0-53.0) % Plt Count 831 H (150-450) k/uL Neutrophils # 11.3 H (1.3-7.7) k/uL Sodium 135 L (137-145) mmol/L Potassium 5.2 H (3.5-5.1) mmol/L Chloride 109 H (98-107) mmol/L BUN 39 H (9-20) mg/dL Creatinine 2.05 H (0.66-1.25) mg/dL Calcium 8.3 L (8.4-10.2) mg/dL AST 80 H (17-59) U/L Alkaline Phosphatase 496 H (38-126) U/L Total Protein 5.5 L (6.3-8.2) g/dL Albumin 2.4 L (3.5-5.0) g/dL
--- NOTE | 2023-08-20 15:34 | P.PN ---
Subjective Progress Note Date: 08/20/23 This is a 83-year-old male patient with a known history of coronary artery disease with previous stent placement, dementia, hypertension, hyperlipidemia, hypothyroidism, non-smoker who presented here to the emergency room on 08/01/2023 with abdominal pain. He had been followed by surgical services. He did have a nasogastric tube which had approximately 2100 cc output once put in. However the patient inadvertently pulled it out last night. Today he had developed increased abdominal discomfort, tachycardia and shortness of breath. We were consulted for possible transfer to the ICU. He is seen today on the regular medical floor. He is awake and alert. He denies any pain at rest. He is tender to palpation. He is tachycardic, sinus. Currently afebrile. Continue O2 saturations in the mid 90s on 3 L/min per nasal cannula. Blood pressure stable. Blood cultures reveal no growth. White count 8.5. Hemoglobin 12.6. Platelets 373. Sodium 139. Potassium 4.6. Bicarb 14. BUN 34. Creatinine 3.11. Glucose 88. Amylase 73. Lipase 49. CT scan of the abdomen today revealed bowel obstruction pattern. Small amount of free fluid. Chest x-ray reveals no acute cardiopulmonary process. A nasogastric tube has been reinserted and in good position. He is currently on Zosyn. Patient was seen and examined today on 08/05/2023, patient is doing much better today compared to the last 2 days, less abdominal pain, no nausea no vomiting, continues to have nasogastric tube in place.WBC count is 9.9 hemoglobin 11.3 basic metabolic profile is normal however his renal functioning is worse with BUN up to 69 creatinine 5.60, and that is being addressed by nephrology on the case. His acute kidney injury is felt to be related to hemodynamic ATN, no hydronephrosis on CT of the abdomen, patient does have history of chronic kidney disease stage IIIb. Patient is on Cardizem drip now for atrial tachycardia. And cardiology is following Reevaluate today on 08/06/23, patient pulled his nasogastric tube yesterday, continues to have abdominal distention and abdominal pain. Apparently multiple attempts by nurses to place the nasogastric tube were unsuccessful. Surgery is to address the nasogastric tube placement and or exploratory laparotomy on this patient to relieve his bowel obstruction.WBC count today is 8.4 hemoglobin 10.4, basic metabolic profile is normal renal profile is worsening with a BUN of 85 creatinine 6.08 and his renal profile is being addressed by nephrology on the case Patient was reevaluated today on 08/07/2023, continues to have abdominal pain, continues to have small bowel obstruction, and now he is developing worsening renal disease. From the looks of it, patient may be heading towards dialysis. Patient was seen by Dr. Truong today, and I believe he is recommending exploratory laparotomy after he is seen by Dr. Goodman tomorrow. Continues to have decent urine output, 600 cc in the last 8 hours. Could not have a nasogastric tube placed back, patient is getting in Progress note dated August 08, 2023. 83-year-old male seen in room 378. The patient is currently on 2 L of oxygen. The patient is getting dextrose with half-normal saline at 100 cc an hour. He does have a significantly tender abdomen, anytime he burps, or coughs. Also, he is tender on palpation. Current labs include a white count 9.5, hemoglobin 11.4, hematocrit 36, and a platelet count of 343,000. Sodium 143, potassium 4.2, chlorides 107, CO2 27, BUN 93, creatinine 5.62. Calcium is 8, with a phosphorus of 5.4. Glucose is 97. Blood cultures are negative. Progress note dated August 09, 2023. 83-year-old male seen today in room 378. The patient is currently on 3 L of oxygen. NG tube remains in place. He is getting D5 with half-normal saline at 100 cc an hour. The patient has significant abdominal pain on palpation of the abdomen. Labs today include a white count 9.3, hemoglobin 10.8, hematocrit 33.9, and a platelet count of 355,000. Sodium 140, potassium 4.4, chlorides 110, CO2 22, BUN 87, and creatinine 5.53. Glucose is 116. Albumin is 2. All microbiologic sampling is thus far negative. Progress note dated August 10, 2023. 83-year-old male seen again in room 378. The patient again pulled out his NG tube. The patient is on room air. The patient is getting TPN at 30 cc an hour. The patient still has significant abdominal discomfort on palpation. I count 10.5, hemoglobin 10.7, hematocrit 33.8, and platelet count is 384,000. Sodium 140, potassium 3.8, chlorides 107, CO2 20, anion gap 13, BUN 92, creatinine 5.60. Glucose is 123. Magnesium 1.9. Phosphorus 5.2. Progress note dated August 11, 2023. 83-year-old male seen today in room 377. Currently, the patient is receiving hemodialysis. He is on room air. The patient is a DO NOT RESUSCITATE patient. He is getting TPN at 48 cc an hour. He continues on Eraxis, and Zosyn. No new laboratory data today as yet, other than a glucose of 106. Chest x-ray from yesterday shows some mild streaky basilar atelectasis. Progress note dated August 12, 2023. 83-year-old male, seen in room 377. Currently, the patient is on room air. The patient is getting TPN at 48 cc an hour. He continues on Eraxis, and meropenem. Current labs include a sodium 133, potassium 3.2, chlorides 102, CO2 24, BUN 37, creatinine 2.53. Glucose is 128. Calcium 7.5. Albumin 1.9. The patient does not appear to be as tender, on palpation of the abdomen, as he has been, on previous days. Progress note dated August 13, 2023. 83-year-old male seen today in room 377. The patient continues on room air. S aturations are 94%. The rest of his vital signs are relatively stable. The patient continues on TPN at 48 cc an hour, and D5.45, at 100 cc an hour. He also continues on meropenem, and the antifungal, and Eraxis. Current laboratory data includes a sodium 131, potassium 3.3, chlorides 101, CO2 25, BUN 23, creatinine 1.96. Glucose is 115. Albumin is 1.9. Wound cultures were positive for Enterobacter aerogenes, Marybeth albicans, and Enterococcus faecalis. The patient is seen today August 14, 2023 in follow-up on the regular medical floor. He is currently resting in bed. He denies any worsening abdominal pain. He is maintaining O2 saturations in the 90s on room air. He has D5 W and 0.45 normal saline at 100 MLS per hour. He remains on TPN at 40 MLS per hour. Wound cultures were positive for Enterobacter aerogenes, Marybeth albicans, Enterococcus faecalis. White count 11.4. Hemoglobin 9.5. Platelets 358. Sodium 130. Potassium 3.8. Bicarb 25. BUN 28. Creatinine 2.29. Glucose 98. C-reactive protein 6.5. He is continued on meropenem and Eraxis. Continued on bronchodilators. Heparin for DVT prophylaxis. On today's evaluation of 08/15/2023, the patient is being seen for a follow-up. The patient had a complicated bowel obstruction with left lower quadrant pain. The patient underwent a robotic laparoscopic lysis of adhesions and decompression enterostomy. Intraoperatively, the patient was found to have severe sigmoid diverticulosis without diverticulitis. There was severe small bowel diverticulosis involving the jejunum and there was volvulus in the right lower quadrant that was reduced. There was mesenteric adhesions and multiple pelvic adhesions involving the sigmoid colon that was released. Decompression of the bowel was done. Intra-abdominal cultures turned out to be positive for Enterobacter and Enterococcus faecium. As such, the patient could have had a component of peritonitis. The patient is currently on broad-spectrum antibiotics. The patient is currently on a combination of meropenem and Eraxis. The patient is also on TPN for nutritional support. He is resting comfortably in bed. No signs of any respiratory distress. On 2 L of oxygen by nasal cannula with a pulse ox of 98%. The blood work shows a WBC count 13.9 with a hemoglobin 9.1 and a platelet count of 453. BUN is at 32 with a creatinine of 2.6 and the patient been seen by nephrology. The patient is undergoing dialysis and last dialysis was done on 08/12/2023 and a dialysis currently on hold and the renal function is being monitored very closely. Dow catheter is in place. On today's evaluation of 08/16/2023, I am seeing the patient for a follow-up. The patient is resting comfortably in bed. Continues to have some abdominal pain. This was discussed with the general surgical team and it was thought that his abdominal exam was essentially benign. The patient has bowel sounds and the patient is also passing mucoid bowel movements. White cell count of 15.4 with a hemoglobin of 8.3. There is some mild uptrending of his white cell count count over the past 48 hours. Platelet count is at 477, BUN is 35 with a creatinine of 2.5 which is essentially stable compared to yesterday and a sodium levels at 130. He remains on Eraxis and meropenem. He remains on TPN for nutritional support. No signs of any respiratory distress and the patient is on 2 L of oxygen by nasal cannula with a pulse ox of 99%. General surgery remains on the case. On today's evaluation of 08/17/2023, the patient is taking some clear liquid diet and he is also given some soft mechanically managed diet. He is stooling. However, he is having some ongoing abdominal tenderness on examination. Bowel sounds are present. Surgical wounds that are directing and intact. No resp iratory distress. Renal function remains impaired with a BUN of 37 and a creatinine of 2.57 and a sodium levels at 130 with a potassium level of 5.6. The patient is being seen by nephrology. He has sustained an acute kidney injury on top of his chronic kidney failure. He is still on TPN for nutritional support. His last hemodialysis was on on 08/12/2023. Nephrology on the case. The patient remains on Eraxis and IV meropenem. Afebrile. Hemodynamically stable. Currently on oxygen at 2.5 L. No signs of any respiratory distress. He is a poor historian in general. On today's evaluation on 08/18/2023, the patient continues to have some abdominal distention and abdominal pain. He is a very poor historian. He cannot provide adequate description of the symptoms that he is encountering. However on examination, he does have some direct tenderness over his entire abdomen. Based on that, abdominal x-ray was done and the patient was found to have diffuse air- filled loops of colon and small bowel consistent with stable adynamic ileus. Also, repeat blood work from today showed a WBC count of 12 with a hemoglobin of 7.9 and a platelet count of 557. BUN is at 38 with a creatinine of 2.3 and sodium levels at 133 with a potassium level of 5.6. The patient is being seen by general surgery. The patient remains on TPN for nutritional support. The patient has no active respiratory issues for now. The patient is currently on oxygen at 2 L/min nasal cannula with a pulse ox of 98%. Afebrile. Hemodynamically stable. Remains on Eraxis and meropenem. Remains on TPN for nutritional support. IV fluids are in the form of normal saline at rate of 50 cc an hour. Oral intake remains quite diminished. The patient was also seen by nephrology. He has an acute on top of chronic kidney injury currently hemodialysis dependent. His last dialysis was on 08/12/2023. No further dialysis been done since. He is being assessed on a daily basis. Dow catheter is in place. Echocardiogram shows a preserved LV function. On today's evaluation of 08/19/2023, patient is being seen for a follow-up. Oral intake is still diminished and the patient remains on TPN for nutritional support. His blood work remained stable. Creatinine continues to improve and is currently down to 2.1 with a BUN of 39 and sodium levels at 133 with a potassium level of 5.3. WBC count is at 12 with a hemoglobin of 7.5. The patient is currently on oxygen at 2 L with a pulse ox of 94 to 97%. No other significant events overnight. The patient remains on Eraxis and meropenem. The patient remains on TPN for nutritional support. IV fluids are running at a rate of 50 cc an hour. Patient is being seen by general surgery regarding postoperative care. He is felt to have some degree of ileus. Conservative management has been recommended. On today's evaluation of 08/20/2023, patient is being seen for a follow-up. This patient is having a prolonged recovery from his abdominal surgery. He continues to have some abdominal discomfort and ileus and unable to resume his oral intake at adequate capacity. Based on that, the patient has been maintained on TPN for nutritional support. The patient is post lysis of adhesions and decompression enterostomy and the patient essentially postop day #11. He has also baseline confusion. White cell count of 14.2 with hemoglobin 8.7, BUN 39 with a creatini ne of 2.05 and a sodium levels at 139 with a potassium level of 5.2. Noted renal function continues to improve. Remains on meropenem and Eraxis. Remains on TPN for nutritional support. Objective - Vital Signs Vital signs: Vital Signs Temp 98.2 F 08/20/23 08:30 Pulse 100 08/20/23 09:03 Resp 36 H 08/20/23 09:03 BP 160/80 08/20/23 08:30 Pulse Ox 96 08/20/23 08:51 FiO2 Intake & Output 08/19/23 08/20/23 08/20/23 18:59 06:59 18:59 Intake Total 1126 947.2 Output Total 2275 1100 Balance -1149 -1100 947.2 Weight 79.5 kg Intake: Intake, IV Titration 1008 947.2 Amount Mvi, Adult No.4 with Vit 1008 947.2 K 10 ml Trace (Conc-1Ml/ Dose) 1 ml Sodium Acetate 30 meq Calcium Gluconate 1 gm Magnesium Sulfate gm 1.5 gm In Amino Acids 5 %/Dextrose 20 % 1,000 ml @ 48 mls/hr IV . [id number] [facility] Rx#:[id number] Oral 118 Output: Urine 2275 1100 Other: Voiding Method Indwelling Catheter Indwelling Catheter Indwelling Catheter # Bowel Movements 2 1 - Exam An 83-year-old male patient, on room air, no acute distress. No respiratory difficulty. The patient is currently on 2 L of oxygen by nasal cannula. HEENT examination is grossly unremarkable. Mucous membranes are moist. No oral lesions. Neck supple. Full range of motion. No adenopathy thyromegaly or neck vein distention. Cardiovascular examination reveals regular rhythm rate. S1-S2 normal. No S3 or S4. No discernible murmur noted. Lungs reveal clear breath sounds. Breath sounds are equal bilaterally. No adventitious lung sounds including wheezes rhonchi or crackles. Abdomen is tender on palpation. No bowel sounds. Hypoactive bowel sounds. Surgical wound site are all dry clean and intact. Extremities are intact. No cyanosis clubbing or edema. Skin is without rash or lesion. Neurologic examination is brief but nonfocal. - Labs CBC & Chem 7: 08/20/23 08:37 08/20/23 08:37 Labs: Abnormal Lab Results - Last 24 Hours (Table) 08/19/23 08/20/23 08/20/23 Range/Units 12:01 08:37 08:37 WBC 14.2 H (3.8-10.6) k/uL RBC 3.08 L (4.30-5.90) m/uL Hgb 8.7 L (13.0-17.5) gm/dL Hct 27.4 L (39.0-53.0) % Plt Count 831 H (150-450) k/uL Neutrophils # 11.3 H (1.3-7.7) k/uL Sodium 135 L (137-145) mmol/L Potassium 5.2 H (3.5-5.1) mmol/L Chloride 109 H (98-107) mmol/L BUN 39 H (9-20) mg/dL Creatinine 2.05 H (0.66-1.25) mg/dL POC Glucose (mg/dL) 114 H (70-110) mg/dL Calcium 8.3 L (8.4-10.2) mg/dL AST 80 H (17-59) U/L Alkaline Phosphatase 496 H (38-126) U/L Total Protein 5.5 L (6.3-8.2) g/dL Albumin 2.4 L (3.5-5.0) g/dL Assessment and Plan Plan: Acute bowel obstruction. The patient had bowel obstruction and intraoperatively, the patient was found to have severe sigmoid diverticulosis without diverticulitis, severe small bowel diverticulosis involving the jejunum and volvulus of the right lower quadrant that was reduced and mesenteric adhesions with multiple pelvic adhesions involving the sigmoid colon that were released. Decompression of the bowel was done. The patient has positive intra-abdominal cultures consistent with peritonitis. The patient has positive Enterobacter and Enterococcus faecium currently on a combination of Eraxis and meropenem. The patient is currently postop day #11. Abdominal pain with diminished oral intake/adynamic ileus. Remains on TPN for nutritional support. Overall condition is unchanged compared to yesterday. Acute hypoxemic respiratory failure secondary to above, history of COPD but is a lifelong non-smoker and the patient is currently on 2 L of oxygen by nasal cannula Acute on chronic kidney injury, received hemodialysis the last hemodialysis session was on 08/12/2023, currently being monitored by nephrology. Creatinine level continues to improve. Mild leukocytosis History of coronary disease with previous stent placement Hypertension Hyperlipidemia Hypothyroidism Dementia Lifelong non-smoker Plan: Monitor the white cell count Monitor renal function creatinine General surgery evaluation Gradually advance diet as tolerated to general surgery is on the casey saw operator potassium level and adjusted to potassium supplements through the TPN Continue TPN for nutritional support General surgery is on the case Remains on meropenem and Eraxis Surgical services are following Physical therapy Monitor electrolytes DNR CODE STATUS We will continue to follow
[2023-08-20 16:23] LABS: Glucose,Whole Blood 77 mg/dL (70-110)
--- NOTE | 2023-08-20 16:40 | P.PN ---
Subjective Principal diagnosis: patient seen and evaluated bedside. No overnight she Objective - Vital Signs Vital signs: Vital Signs Temp 98.8 F 08/20/23 15:48 Pulse 80 08/20/23 15:48 Resp 17 08/20/23 15:48 BP 165/91 08/20/23 15:48 Pulse Ox 93 L 08/20/23 15:48 FiO2 Intake & Output 08/19/23 08/20/23 08/20/23 18:59 06:59 18:59 Intake Total 1126 947.2 Output Total 2275 1100 1400 Balance -1149 -1100 -452.8 Weight 79.5 kg Intake: Intake, IV Titration 1008 947.2 Amount Mvi, Adult No.4 with Vit 1008 947.2 K 10 ml Trace (Conc-1Ml/ Dose) 1 ml Sodium Acetate 30 meq Calcium Gluconate 1 gm Magnesium Sulfate gm 1.5 gm In Amino Acids 5 %/Dextrose 20 % 1,000 ml @ 48 mls/hr IV . [id number] [facility] Rx#:[id number] Oral 118 Output: Urine 2275 1100 1400 Uretheral (Dow) 600 Other: Voiding Method Indwelling Catheter Indwelling Catheter Indwelling Catheter # Bowel Movements 2 1 - Exam general no acute distress Cardiovascular regular rhythm Pulmonary nonlabored breathing Abdomen soft, distended, minimal tenderness palpation in the left lower quadrant - Labs CBC & Chem 7: 08/20/23 08:37 08/20/23 08:37 Labs: Abnormal Lab Results - Last 24 Hours (Table) 08/20/23 08/20/23 Range/Units 08:37 08:37 WBC 14.2 H (3.8-10.6) k/uL RBC 3.08 L (4.30-5.90) m/uL Hgb 8.7 L (13.0-17.5) gm/dL Hct 27.4 L (39.0-53.0) % Plt Count 831 H (150-450) k/uL Neutrophils # 11.3 H (1.3-7.7) k/uL Sodium 135 L (137-145) mmol/L Potassium 5.2 H (3.5-5.1) mmol/L Chloride 109 H (98-107) mmol/L BUN 39 H (9-20) mg/dL Creatinine 2.05 H (0.66-1.25) mg/dL Calcium 8.3 L (8.4-10.2) mg/dL AST 80 H (17-59) U/L Alkaline Phosphatase 496 H (38-126) U/L Total Protein 5.5 L (6.3-8.2) g/dL Albumin 2.4 L (3.5-5.0) g/dL Assessment and Plan Assessment: ASSESSMENT: 1. Small bowel obstruction due to adhesion, lower pelvis left lower quadrant status post lysis of adhesions and decompressive enterostomy 2. Expected ileus due to physical inactivity, spinal stenosis and chronic back pain 3. Acute renal failure 4. Sigmoid diverticulosis 5. Left lower quadrant abdominal pain 6. Internal hernia pelvis PLAN: -Continue to increase activity level and work with PT OT -Patient's of physical debility, hyponatremia and acute kidney injury agitating abdominal ileus -Continue to monitor -Continue to correct electrolytes -Continue ground diet -Continue TPN
[2023-08-21 00:03] LABS: Glucose,Whole Blood 113 mg/dL (70-110)
[2023-08-21] MEDS ORDERED: MVI, ADULT NO.4 WITH VIT K 10 ML, TRACE (CONC-1ML/DOSE) 1 ML, SODIUM ACETATE 40 MEQ, CA... IV SCH (04:00)
[2023-08-21 06:11] LABS: Glucose,Whole Blood 99 mg/dL (70-110)
--- NOTE | 2023-08-21 10:15 | P.PN ---
Subjective Patient is seen in follow-up for acute kidney injury on chronic kidney disease, currently hemodialysis dependent. Receiving TPN. On room air. Hemodynamically stable. Last dialysis August 12, 2023. Dialysis catheter now removed. Nonoliguric. Poor historian. Vital signs are stable. General: No acute distress. HEENT: Head exam is unremarkable. LUNGS: No audible rhonchi or wheezes. HEART: Rate and Rhythm are regular. ABDOMEN: Tender to touch. EXTREMITITES: No edema. Objective - Vital Signs Vital signs: Vital Signs Temp 97.9 F 08/21/23 07:35 Pulse 96 08/21/23 09:15 Resp 20 08/21/23 07:35 BP 159/75 08/21/23 07:35 Pulse Ox 97 08/21/23 07:35 FiO2 Intake & Output 08/20/23 08/21/23 08/21/23 18:59 06:59 18:59 Intake Total 947.2 982.4 Output Total 1400 1600 Balance -452.8 -617.6 Intake: Intake, IV Titration 947.2 982.4 Amount Mvi, Adult No.4 with Vit 947.2 982.4 K 10 ml Trace (Conc-1Ml/ Dose) 1 ml Sodium Acetate 30 meq Calcium Gluconate 1 gm Magnesium Sulfate gm 1.5 gm In Amino Acids 5 %/Dextrose 20 % 1,000 ml @ 48 mls/hr IV . [id number] [facility] Rx#:[id number] Output: Urine 1400 1600 Uretheral (Dow) 600 Other: Voiding Method Indwelling Catheter Indwelling Catheter Indwelling Catheter # Bowel Movements 1 - Labs CBC & Chem 7: 08/20/23 08:37 08/20/23 08:37 Labs: Abnormal Lab Results - Last 24 Hours (Table) 08/21/23 Range/Units 00:01 POC Glucose (mg/dL) 113 H (70-110) mg/dL Assessment and Plan Plan: Assessment: 1. Acute kidney injury secondary to hemodynamic ATN. No hydronephrosis noted on CAT scan. Started on hemodialysis August 10, 2023. Last dialysis August 12, 2023. Permacath removed August 19, 2023. Renal function improving. Creatinine 2.05 yesterday. Nonoliguric. 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 Heme/onc following. 2. Chronic kidney disease stage IIIb with baseline creatinine 1.3-1.5 secondary to nephrosclerosis. 3. Partial small bowel obstruction. Receiving TPN. Surgery following. 4. Metabolic acidosis secondary to acute kidney injury and IV fluids. Better. 5. Atrial tachycardia status post Cardizem drip. On metoprolol. Cardiology following. 6. Anemia. Iron deficiency noted - s/p IV iron. 7. Hyperkalemia secondary to acute kidney injury. Stable. Plan: Maintain TPN. Continue to restrict potassium in feeds. Avoid nephrotoxins. Continue to monitor renal function and urine output. Maintain Dow catheter. Preserved EF noted on echo. Status post low-dose IV Lasix given last 2 days.
[2023-08-21 10:46] LABS: ALT 28 U/L (4-49); AST 42 U/L (17-59); African American GFR (CKD) 35 (>60 ml/min/1.73 sqM); Alkaline Phosphatase 356 U/L (38-126); Anion Gap 4 mmol/L; Blood Urea Nitrogen 39 mg/dL (9-20); Calcium 7.9 mg/dL (8.4-10.2); Carbon Dioxide 22 mmol/L (22-30); Chloride 109 mmol/L (98-107); Glucose 103 mg/dL (74-99); Non-African American GFR(CKD) 30 (>60 ml/min/1.73 sqM); Phosphorus 3.4 mg/dL (2.5-4.5); Potassium 4.6 mmol/L (3.5-5.1); Sodium 135 mmol/L (137-145); Total Bilirubin 0.3 mg/dL (0.2-1.3); Total Protein 4.9 g/dL (6.3-8.2)
[2023-08-21] MEDS: DARBEPOETIN ALFA 40 MCG/0.4 ML SYRINGE SQ SCH (11:31)
[2023-08-21 11:38] LABS: Glucose,Whole Blood 110 mg/dL (70-110)
--- NOTE | 2023-08-21 12:05 | P.PN ---
Subjective Progress Note Date: 08/21/23 CHIEF COMPLAINT: Abdominal pain HISTORY OF PRESENT ILLNESS: Patient with small bowel obstruction status post robotic assisted laparoscopic lysis of adhesions and decompressive enterostomy, POD#10. Patient is sitting up in bed comfortably. Denies any nausea or vomiting. He is having flatus. Last bowel movement reported on August 16. Family is at bedside. Their questions were answered to the best my ability. Afebrile. Sodium 133 k 5.3 creatinine 2.12 PHYSICAL EXAM: VITAL SIGNS: Reviewed GENERAL: Well-developed in no acute distress. HEENT: No sclera icterus. Extraocular movements grossly intact. Moist buccal mucosa. Head is atraumatic, normocephalic. Hears conversational speech. No nasal drainage. NECK: Supple without lymphadenopathy. CHEST: Non-labored respirations and equal bilateral excursions. CARDIOVASCULAR: Palpable 2+ radial pulses. ABDOMEN: Mildly Distended. No signs of peritonitis. nontender. Incision sites clean dry and intact. MUSCULOSKELETAL: No clubbing or cyanosis. NEUROLOGIC: No focal or lateralizing signs. Cranial nerves II through XII grossly intact. PSYCH: Appropriate affect. Alert and oriented to person, place and time. SKIN: Well perfused. Good skin turgor. ASSESSMENT: 1. Small bowel obstruction due to adhesion, lower pelvis left lower quadrant status post lysis of adhesions and decompressive enterostomy 2. Expected ileus due to physical inactivity, spinal stenosis and chronic back pain 3. Acute renal failure 4. Sigmoid diverticulosis 5. Left lower quadrant abdominal pain 6. Internal hernia pelvis PLAN: -Continue to increase activity level and work with PT OT -Patient's of physical debility, hyponatremia and acute kidney injury agitating abdominal ileus -Continue to monitor -Continue to correct electrolytes -Continue ground diet -Continue TPN -Continue pain management -Continue supportive care -Discussed with patient's sister that it is okay to bring food from home [employer] note has been reviewed by physician. Signing provider agrees with the documented findings, assessment, and plan of care. CHIEF COMPLAINT: Abdominal pain HISTORY OF PRESENT ILLNESS: The patient is a 83-year-old male status post lysis of adhesions 08/08/2023. He is resting comfortably. He is having bowel movements daily. At the time of my assessment, he denies any moderate abdominal pain. ROS: No fevers or chills. No new chest pain. PHYSICAL EXAM: VITAL SIGNS: Reviewed CONSTITUTIONAL: Well developed and in no acute distress. EYES: Conjuctivae without sclera icterus. Extraocular movements grossly intact. HEAD, EARS, NOSE, THROAT: Moist buccal mucosa. Head is atraumatic, normocephalic. Hears conversational speech. RESPIRATORY: Non-labored respirations and equal bilateral excursions. CARDIOVASCULAR: Palpable 2+ radial pulses. ABDOMEN: Incisions intact. No peritonitis. No tenderness to light palpation. MUSCULOSKELETAL: No gross deformity of the lower extremities noted. No clubbing. No cyanosis. SKIN: Good skin turgor. Well perfused. NEUROLOGIC: Cranial nerves II through XII grossly intact. No focal or lateralizing signs. PSYCH: Alert and oriented to person. CLINICAL LABS: Reviewed. Creatinine improving from 6.38-1.98 STUDIES: CT of the abdomen and pelvis independently reviewed demonstrating diffuse bowel gas pattern. Findings mostly consistent with ileus not bowel obstruction. This is my independent interpretation. No transition point identified to confirm recurrent bowel obstruction. ASSESSMENT: 1. Small bowel obstruction due to adhesions with abdominal pain 2. Supraventricular tachycardia 3. Acute onset renal failure status post temporary dialysis 4. Spinal stenosis 5. Ileus due to comorbidities and pre-existing condition PLAN: 1. Clinically, patient is passing flatus and having multiple bowel movements. He is also tolerating ground diet. Findings mostly consistent with ileus which is to be expected due to patient's chronic back pain, renal disease, anticipated longer time for recovery. 2. May benefit from repeat small bowel follow-through to exclude any recurrent small bowel obstruction. 3. Overall, patient clinically improving Objective - Vital Signs Vital signs: Vital Signs Temp 97.4 F L 08/21/23 11:40 Pulse 90 08/21/23 11:40 Resp 19 08/21/23 11:40 BP 137/72 08/21/23 11:40 Pulse Ox 97 08/21/23 11:40 FiO2 Intake & Output 08/20/23 08/21/23 08/21/23 18:59 06:59 18:59 Intake Total 947.2 982.4 Output Total 1400 1600 350 Balance -452.8 -617.6 -350 Intake: Intake, IV Titration 947.2 982.4 Amount Mvi, Adult No.4 with Vit 947.2 982.4 K 10 ml Trace (Conc-1Ml/ Dose) 1 ml Sodium Acetate 30 meq Calcium Gluconate 1 gm Magnesium Sulfate gm 1.5 gm In Amino Acids 5 %/Dextrose 20 % 1,000 ml @ 48 mls/hr IV . [id number] [facility] Rx#:[id number] Output: Urine 1400 1600 350 Uretheral (Dow) 600 Other: Voiding Method Indwelling Catheter Indwelling Catheter Indwelling Catheter # Bowel Movements 1 - Labs CBC & Chem 7: 08/20/23 08:37 08/21/23 09:21 Labs: Abnormal Lab Results - Last 24 Hours (Table) 08/21/23 08/21/23 Range/Units 00:01 09:21 Sodium 135 L (137-145) mmol/L Chloride 109 H (98-107) mmol/L BUN 39 H (9-20) mg/dL Creatinine 1.98 H (0.66-1.25) mg/dL Glucose 103 H (74-99) mg/dL POC Glucose (mg/dL) 113 H (70-110) mg/dL Calcium 7.9 L (8.4-10.2) mg/dL Alkaline Phosphatase 356 H (38-126) U/L Total Protein 4.9 L (6.3-8.2) g/dL Albumin 2.0 L (3.5-5.0) g/dL
--- NOTE | 2023-08-21 12:57 | P.PN ---
Subjective Progress Note Date: 08/21/23 Progress note Date of service 08/21/[address] Griffin. Patient seen evaluated bedside, patient awake alert Discussed with Dr. Pinzon today after she did see the patient and she expressed her point of view with the underlying ileus, and she will be due tomorrow small bowel follow-through to see if there is any obstruction versus ileus and she explained that the patient had ileus and she will confirm that with the tomorrow test I did express to her that family is okay with exploratory laparotomy if obstruction still need as patient prolongation of his current status since August 08, 2023. Vital sign temperature 97.4 heart rate ranging between 961 02. Respiratory rate 19/min nonlabored and blood pressure 137/72. And oxygen saturation 97 on 2 L of nasal cannula. Laboratories: Sodium 135, potassium 4.6, chloride 109, carbon dioxide 22, BUN 39 and creatinine 1.98 with the improvement of the renal function his GFR for non- 30, glucose 103 and POC glucose 110, on the TPN. Potassium is corrected., His phosphorus 3.4 magnesium 2 and total bilirubin 0.3 and AST 42 ALT 28 all within normal limit calcium is 7.9 however previously ionized calcium was normal. Alkaline phosphatase still progressively worsening 356 with the mild improvement from yesterday 08/20/2023 which was 496. And the start point on 08/02/2023 96. Per routine 4.9 and albumin 2 still on the low side. Dr. Pinzon stated that she reviewed the CT scan of the abdomen and pelvis with the underlying anasarca clearly the etiology is unknown. No Head and neck no changes with the chronic left facial drooping over the possibility of chronic Bradley's palsy as previous CT scan was negative Oropharynx he has natural teeth he has no appetite to eat and he may take couple spoon and stop. Neck was supple no JVD no thyromegaly no lymphadenopathy trachea midline. Chest normal breath sounds he had effusion from the anasarca and hypoalbuminemia. Heart is regular sinus rhythm with preserved ejection fraction no edema currently on the ankle and he wearing a thrombotic stocking. Abdomen: mixing pan tender and four-quadrant specially in the lower quadrant and inguinal area and tympanitic on percussion. And the bowel movement is not clear bowel movement as he has some old retention of stools and he had mucousy rylie nent of the anal discharge I could not agree that he had effective bowel movement yet Extremities wearing a thrombotic stocking and no ankle edema and positive pulses. Neurologically stable with intermittent confusion with the history of cognitive function impairment Assessment: 1. Patient still same consideration and concern of ileus versus bowel obstruction with the associated prolonged since August 08, 2023 after he had robotic laparoscopic lysis of adhesion 2. Gradually resolution of acute kidney injury on the top of the chronic kidney disease stage III 3. Alkaline phosphatase abnormality etiology unknown. 4. Sinus tachycardia intermittently with preserved ejection fraction 5. AST resolution abnormal elevation currently 42 6. Shortness of breath with chronic obstructive pulmonary disease and asthma. 7. Chronic prolongation of starvation secondary to his small bowel obstruction 8. Hypoproteinemia hypoalbuminemia, anasarca. 9. Anemia was considered from iron deficiency. Plan: 1. After significant discussion with Dr. Pinzon surgeon, she will do small bowel series with dye to evaluate obstruction versus ileus and for further action subsequently after she reviews that 2. Patient will continue having the support with the TPN. 3. Will continue follow-up and future discussion with the surgeon Dr. Pinzon. Objective - Vital Signs Vital signs: Vital Signs Temp 97.4 F L 08/21/23 11:40 Pulse 90 08/21/23 11:40 Resp 19 08/21/23 11:40 BP 137/72 08/21/23 11:40 Pulse Ox 97 08/21/23 11:40 FiO2 Intake & Output 08/20/23 08/21/23 08/21/23 18:59 06:59 18:59 Intake Total 947.2 982.4 Output Total 1400 1600 350 Balance -452.8 -617.6 -350 Intake: Intake, IV Titration 947.2 982.4 Amount Mvi, Adult No.4 with Vit 947.2 982.4 K 10 ml Trace (Conc-1Ml/ Dose) 1 ml Sodium Acetate 30 meq Calcium Gluconate 1 gm Magnesium Sulfate gm 1.5 gm In Amino Acids 5 %/Dextrose 20 % 1,000 ml @ 48 mls/hr IV . [id number] [facility] Rx#:[id number] Output: Urine 1400 1600 350 Uretheral (Dow) 600 Other: Voiding Method Indwelling Catheter Indwelling Catheter Indwelling Catheter # Bowel Movements 1 - Labs CBC & Chem 7: 04/13/24 08:37 08/21/23 09:21 Labs: Abnormal Lab Results - Last 24 Hours (Table) 08/21/23 08/21/23 Range/Units 00:01 09:21 Sodium 135 L (137-145) mmol/L Chloride 109 H (98-107) mmol/L BUN 39 H (9-20) mg/dL Creatinine 1.98 H (0.66-1.25) mg/dL Glucose 103 H (74-99) mg/dL POC Glucose (mg/dL) 113 H (70-110) mg/dL Calcium 7.9 L (8.4-10.2) mg/dL Alkaline Phosphatase 356 H (38-126) U/L Total Protein 4.9 L (6.3-8.2) g/dL Albumin 2.0 L (3.5-5.0) g/dL
--- NOTE | 2023-08-21 14:24 | P.PN ---
Subjective Progress Note Date: 08/20/23 Principal diagnosis: Reason for follow-up is fever likely abdominal source Patient is a 83-year-old male with a past medical history significant for coronary disease COPD dementia hypertension hyperlipidemia reflux presenting to the hospital for evaluation of abdominal pain bloating has been diagnosed with the distal small bowel obstruction developing a fever concerning for possible abdominal sepsis prompting this consultation.Patient is status post robotic assisted laparoscopic lysis of adhesion extensive and decompressive enterostomy that was completed on 08/08/2023 On today's evaluation that is 08/20/2023, patient has been afebrile, patient is breathing comfortably and is currently on 2 L nasal cannula oxygen patient sleepy lethargic today did not provide any history no vomiting or any other changes reported by the nursing staff Patient white count is 14.2, creatinine 2.05 Objective - Vital Signs Vital signs: Vital Signs Temp 98.2 F 08/20/23 08:30 Pulse 100 08/20/23 09:03 Resp 36 H 08/20/23 09:03 BP 160/80 08/20/23 08:30 Pulse Ox 96 08/20/23 08:51 FiO2 Intake & Output 08/19/23 08/20/23 08/20/23 18:59 06:59 18:59 Intake Total 1126 947.2 Output Total 2275 1100 800 Balance -1149 -1100 147.2 Weight 79.5 kg Intake: Intake, IV Titration 1008 947.2 Amount Mvi, Adult No.4 with Vit 1008 947.2 K 10 ml Trace (Conc-1Ml/ Dose) 1 ml Sodium Acetate 30 meq Calcium Gluconate 1 gm Magnesium Sulfate gm 1.5 gm In Amino Acids 5 %/Dextrose 20 % 1,000 ml @ 48 mls/hr IV . [id number] [facility] Rx#:[id number] Oral 118 Output: Urine 2275 1100 800 Other: Voiding Method Indwelling Catheter Indwelling Catheter Indwelling Catheter # Bowel Movements 2 1 - Exam GENERAL DESCRIPTION: An elderly male up in the chair in no distress RESPIRATORY SYSTEM: Unlabored breathing , decreased breath sounds at bases HEART: S1 S2 regular rate and rhythm , ABDOMEN: Soft , no tenderness EXTREMITIES: No edema feet - Labs CBC & Chem 7: 08/20/23 08:37 08/21/23 09:21 Labs: Abnormal Lab Results - Last 24 Hours (Table) 08/19/23 08/20/23 08/20/23 Range/Units 12:01 08:37 08:37 WBC 14.2 H (3.8-10.6) k/uL RBC 3.08 L (4.30-5.90) m/uL Hgb 8.7 L (13.0-17.5) gm/dL Hct 27.4 L (39.0-53.0) % Plt Count 831 H (150-450) k/uL Neutrophils # 11.3 H (1.3-7.7) k/uL Sodium 135 L (137-145) mmol/L Potassium 5.2 H (3.5-5.1) mmol/L Chloride 109 H (98-107) mmol/L BUN 39 H (9-20) mg/dL Creatinine 2.05 H (0.66-1.25) mg/dL POC Glucose (mg/dL) 114 H (70-110) mg/dL Calcium 8.3 L (8.4-10.2) mg/dL AST 80 H (17-59) U/L Alkaline Phosphatase 496 H (38-126) U/L Total Protein 5.5 L (6.3-8.2) g/dL Albumin 2.4 L (3.5-5.0) g/dL Assessment and Plan (1) Fever Current Visit: Yes Status: Acute Code(s): R50.9 - FEVER, UNSPECIFIED SNOME D Code(s): 323694950 (2) Leukocytosis Current Visit: Yes Status: Acute Code(s): D72.829 - ELEVATED WHITE BLOOD CELL COUNT, UNSPECIFIED SNOMED Code(s): 040075919 (3) Small bowel obstruction Current Visit: Yes Status: Acute Code(s): K56.609 - UNSP INTESTNL OBST, UNSP TO PARTIAL VERSUS COMPLETE OBST SNOMED Code(s): 513361516 (4) Peritonitis Current Visit: Yes Status: Acute Code(s): K65.9 - PERITONITIS, UNSPECIFIED SNOMED Code(s): 75716895 Plan: 1patient with low-grade fever elevated white count and this patient presented to hospital with abdominal pain and bloating and has been diagnosed with the small bowel obstruction likely etiology for his low-grade fever and elevated whi te count, the patient is status post laparoscopic lysis of adhesion and enterostomy abdominal cultures obtained which are currently growing Enterococcus drug-resistant Enterobacter and Marybeth 2-patient is afebrile, patient white count is slightly up today and will monitor closely 3-patient is currently covered with meropenem and Eraxis continue monitor clinical course closely Family at the bedside questions answered Dictation was produced using [employer] dictation software. please excuse any gramm atical, word or spelling errors.
--- NOTE | 2023-08-21 14:25 | P.PN ---
Subjective Progress Note Date: 08/21/23 Principal diagnosis: Reason for follow-up is fever likely abdominal source Patient is a 83-year-old male with a past medical history significant for coronary disease COPD dementia hypertension hyperlipidemia reflux presenting to the hospital for evaluation of abdominal pain bloating has been diagnosed with the distal small bowel obstruction developing a fever concerning for possible abdominal sepsis prompting this consultation.Patient is status post robotic assisted laparoscopic lysis of adhesion extensive and decompressive enterostomy that was completed on 08/08/2023 On today's evaluation that is 08/21/2023,the patient remains to be afebrile he is breathing comfortably on 2 L nasal cannula oxygen and does not seem to be any distress sleepy did not answer any question no vomiting reported the change reported by the nursing staff Patient creatinine is 1.98 no CBC was done today Objective - Vital Signs Vital signs: Vital Signs Temp 97.4 F L 08/21/23 11:40 Pulse 90 08/21/23 11:40 Resp 19 08/21/23 11:40 BP 137/72 08/21/23 11:40 Pulse Ox 97 08/21/23 11:40 FiO2 Intake & Output 08/20/23 08/21/23 08/21/23 18:59 06:59 18:59 Intake Total 947.2 982.4 126 Output Total 1400 1600 350 Balance -452.8 -617.6 -224 Intake: Intake, IV Titration 947.2 982.4 Amount Mvi, Adult No.4 with Vit 947.2 982.4 K 10 ml Trace (Conc-1Ml/ Dose) 1 ml Sodium Acetate 30 meq Calcium Gluconate 1 gm Magnesium Sulfate gm 1.5 gm In Amino Acids 5 %/Dextrose 20 % 1,000 ml @ 48 mls/hr IV . [id number] [facility] Rx#:[id number] Oral 126 Output: Urine 1400 1600 350 Uretheral (Dow) 600 Other: Voiding Method Indwelling Catheter Indwelling Catheter Indwelling Catheter # Bowel Movements 1 - Exam GENERAL DESCRIPTION: An elderly male up in the chair in no distress RESPIRATORY SYSTEM: Unlabored breathing , decreased breath sounds at bases HEART: S1 S2 regular rate and rhythm , ABDOMEN: Soft , no tenderness EXTREMITIES: No edema feet - Labs CBC & Chem 7: 08/20/23 08:37 08/21/23 09:21 Labs: Abnormal Lab Results - Last 24 Hours (Table) 08/21/23 08/21/23 Range/Units 00:01 09:21 Sodium 135 L (137-145) mmol/L Chloride 109 H (98-107) mmol/L BUN 39 H (9-20) mg/dL Creatinine 1.98 H (0.66-1.25) mg/dL Glucose 103 H (74-99) mg/dL POC Glucose (mg/dL) 113 H (70-110) mg/dL Calcium 7.9 L (8.4-10.2) mg/dL Alkaline Phosphatase 356 H (38-126) U/L Total Protein 4.9 L (6.3-8.2) g/dL Albumin 2.0 L (3.5-5.0) g/dL Assessment and Plan (1) Fever Current Visit: Yes Status: Acute Code(s): R50.9 - FEVER, UNSPECIFIED SNOMED Code(s): 180742860 (2) Leukocytosis Current Visit: Yes Status: Acute Code(s): D72.829 - ELEVATED WHITE BLOOD CELL COUNT, UNSPECIFIED SNOMED Code(s): 660766150 (3) Small bowel obstruction Current Visit: Yes Status: Acute Code(s): K56.609 - UNSP INTESTNL OBST, UNSP TO PARTIAL VERSUS COMPLETE OBST SNOMED Code(s): 121792332 (4) Peritonitis Current Visit: Yes Status: Acute Code(s): K65.9 - PERITONITIS, UNSPECIFIED SNOMED Code(s): 97988114 Plan: 1patient with low-grade fever elevated white count and this patient presented to hospital with abdominal pain and bloating and has been diagnosed with the small bowel obstruction likely etiology for his low-grade fever and elevated white count, the patient is status post laparoscopic lysis of adhesion and enterostomy abdominal cultures obtained which are currently growing Enterococcus drug-resistant Enterobacter and Marybeth 2-patient is afebrile, patient white count is slightly up today and will monitor closely 3-patient continue with meropenem and Eraxis scheduled for small bowel follow- through tomorrow we will also recheck his CBC to make sure the white count is trending down Discussed with the nursing staff Dictation was produced using [employer] dictation software. please excuse any grammatical, word or spelling errors. Time with Patient: Less than 30
--- NOTE | 2023-08-21 14:44 | P.PN ---
Subjective Progress Note Date: 08/21/23 This is a 83-year-old male patient with a known history of coronary artery disease with previous stent placement, dementia, hypertension, hyperlipidemia, hypothyroidism, non-smoker who presented here to the emergency room on 08/01/2023 with abdominal pain. He had been followed by surgical services. He did have a nasogastric tube which had approximately 2100 cc output once put in. However the patient inadvertently pulled it out last night. Today he had developed increased abdominal discomfort, tachycardia and shortness of breath. We were consulted for possible transfer to the ICU. He is seen today on the regular medical floor. He is awake and alert. He denies any pain at rest. He is tender to palpation. He is tachycardic, sinus. Currently afebrile. Continue O2 saturations in the mid 90s on 3 L/min per nasal cannula. Blood pressure stable. Blood cultures reveal no growth. White count 8.5. Hemoglobin 12.6. Platelets 373. Sodium 139. Potassium 4.6. Bicarb 14. BUN 34. Creatinine 3.11. Glucose 88. Amylase 73. Lipase 49. CT scan of the abdomen today revealed bowel obstruction pattern. Small amount of free fluid. Chest x-ray reveals no acute cardiopulmonary process. A nasogastric tube has been reinserted and in good position. He is currently on Zosyn. Patient was seen and examined today on 08/05/2023, patient is doing much better today compared to the last 2 days, less abdominal pain, no nausea no vomiting, continues to have nasogastric tube in place.WBC count is 9.9 hemoglobin 11.3 basic metabolic profile is normal however his renal functioning is worse with BUN up to 69 creatinine 5.60, and that is being addressed by nephrology on the case. His acute kidney injury is felt to be related to hemodynamic ATN, no hydronephrosis on CT of the abdomen, patient does have history of chronic kidney disease stage IIIb. Patient is on Cardizem drip now for atrial tachycardia. And cardiology is following Reevaluate today on 08/06/23, patient pulled his nasogastric tube yesterday, continues to have abdominal distention and abdominal pain. Apparently multiple attempts by nurses to place the nasogastric tube were unsuccessful. Surgery is to address the nasogastric tube placement and or exploratory laparotomy on this patient to relieve his bowel obstruction.WBC count today is 8.4 hemoglobin 10.4, basic metabolic profile is normal renal profile is worsening with a BUN of 85 creatinine 6.08 and his renal profile is being addressed by nephrology on the case Patient was reevaluated today on 08/07/2023, continues to have abdominal pain, continues to have small bowel obstruction, and now he is developing worsening renal disease. From the looks of it, patient may be heading towards dialysis. Patient was seen by Dr. Truong today, and I believe he is recommending exploratory laparotomy after he is seen by Dr. Goodman tomorrow. Continues to have decent urine output, 600 cc in the last 8 hours. Could not have a nasogastric tube placed back, patient is getting in Progress note dated August 08, 2023. 83-year-old male seen in room 378. The patient is currently on 2 L of oxygen. The patient is getting dextrose with half-normal saline at 100 cc an hour. He does have a significantly tender abdomen, anytime he burps, or coughs. Also, he is tender on palpation. Current labs include a white count 9.5, hemoglobin 11.4, hematocrit 36, and a platelet count of 343,000. Sodium 143, potassium 4.2, chlorides 107, CO2 27, BUN 93, creatinine 5.62. Calcium is 8, with a phosphorus of 5.4. Glucose is 97. Blood cultures are negative. Progress note dated August 09, 2023. 83-year-old male seen today in room 378. The patient is currently on 3 L of oxygen. NG tube remains in place. He is getting D5 with half-normal saline at 100 cc an hour. The patient has significant abdominal pain on palpation of the abdomen. Labs today include a white count 9.3, hemoglobin 10.8, hematocrit 33.9, and a platelet count of 355,000. Sodium 140, potassium 4.4, chlorides 110, CO2 22, BUN 87, and creatinine 5.53. Glucose is 116. Albumin is 2. All microbiologic sampling is thus far negative. Progress note dated August 10, 2023. 83-year-old male seen again in room 378. The patient again pulled out his NG tube. The patient is on room air. The patient is getting TPN at 30 cc an hour. The patient still has significant abdominal discomfort on palpation. I count 10.5, hemoglobin 10.7, hematocrit 33.8, and platelet count is 384,000. Sodium 140, potassium 3.8, chlorides 107, CO2 20, anion gap 13, BUN 92, creatinine 5.60. Glucose is 123. Magnesium 1.9. Phosphorus 5.2. Progress note dated August 11, 2023. 83-year-old male seen today in room 377. Currently, the patient is receiving hemodialysis. He is on room air. The patient is a DO NOT RESUSCITATE patient. He is getting TPN at 48 cc an hour. He continues on Eraxis, and Zosyn. No new laboratory data today as yet, other than a glucose of 106. Chest x-ray from yesterday shows some mild streaky basilar atelectasis. Progress note dated August 12, 2023. 83-year-old male, seen in room 377. Currently, the patient is on room air. The patient is getting TPN at 48 cc an hour. He continues on Eraxis, and meropenem. Current labs include a sodium 133, potassium 3.2, chlorides 102, CO2 24, BUN 37, creatinine 2.53. Glucose is 128. Calcium 7.5. Albumin 1.9. The patient does not appear to be as tender, on palpation of the abdomen, as he has been, on previous days. Progress note dated August 13, 2023. 83-year-old male seen today in room 377. The patient continues on room air. S aturations are 94%. The rest of his vital signs are relatively stable. The patient continues on TPN at 48 cc an hour, and D5.45, at 100 cc an hour. He also continues on meropenem, and the antifungal, and Eraxis. Current laboratory data includes a sodium 131, potassium 3.3, chlorides 101, CO2 25, BUN 23, creatinine 1.96. Glucose is 115. Albumin is 1.9. Wound cultures were positive for Enterobacter aerogenes, Marybeth albicans, and Enterococcus faecalis. The patient is seen today August 14, 2023 in follow-up on the regular medical floor. He is currently resting in bed. He denies any worsening abdominal pain. He is maintaining O2 saturations in the 90s on room air. He has D5 W and 0.45 normal saline at 100 MLS per hour. He remains on TPN at 40 MLS per hour. Wound cultures were positive for Enterobacter aerogenes, Marybeth albicans, Enterococcus faecalis. White count 11.4. Hemoglobin 9.5. Platelets 358. Sodium 130. Potassium 3.8. Bicarb 25. BUN 28. Creatinine 2.29. Glucose 98. C-reactive protein 6.5. He is continued on meropenem and Eraxis. Continued on bronchodilators. Heparin for DVT prophylaxis. On today's evaluation of 08/15/2023, the patient is being seen for a follow-up. The patient had a complicated bowel obstruction with left lower quadrant pain. The patient underwent a robotic laparoscopic lysis of adhesions and decompression enterostomy. Intraoperatively, the patient was found to have severe sigmoid diverticulosis without diverticulitis. There was severe small bowel diverticulosis involving the jejunum and there was volvulus in the right lower quadrant that was reduced. There was mesenteric adhesions and multiple pelvic adhesions involving the sigmoid colon that was released. Decompression of the bowel was done. Intra-abdominal cultures turned out to be positive for Enterobacter and Enterococcus faecium. As such, the patient could have had a component of peritonitis. The patient is currently on broad-spectrum antibiotics. The patient is currently on a combination of meropenem and Eraxis. The patient is also on TPN for nutritional support. He is resting comfortably in bed. No signs of any respiratory distress. On 2 L of oxygen by nasal cannula with a pulse ox of 98%. The blood work shows a WBC count 13.9 with a hemoglobin 9.1 and a platelet count of 453. BUN is at 32 with a creatinine of 2.6 and the patient been seen by nephrology. The patient is undergoing dialysis and last dialysis was done on 08/12/2023 and a dialysis currently on hold and the renal function is being monitored very closely. Dow catheter is in place. On today's evaluation of 08/16/2023, I am seeing the patient for a follow-up. The patient is resting comfortably in bed. Continues to have some abdominal pain. This was discussed with the general surgical team and it was thought that his abdominal exam was essentially benign. The patient has bowel sounds and the patient is also passing mucoid bowel movements. White cell count of 15.4 with a hemoglobin of 8.3. There is some mild uptrending of his white cell count count over the past 48 hours. Platelet count is at 477, BUN is 35 with a creatinine of 2.5 which is essentially stable compared to yesterday and a sodium levels at 130. He remains on Eraxis and meropenem. He remains on TPN for nutritional support. No signs of any respiratory distress and the patient is on 2 L of oxygen by nasal cannula with a pulse ox of 99%. General surgery remains on the case. On today's evaluation of 08/17/2023, the patient is taking some clear liquid diet and he is also given some soft mechanically managed diet. He is stooling. However, he is having some ongoing abdominal tenderness on examination. Bowel sounds are present. Surgical wounds that are directing and intact. No resp iratory distress. Renal function remains impaired with a BUN of 37 and a creatinine of 2.57 and a sodium levels at 130 with a potassium level of 5.6. The patient is being seen by nephrology. He has sustained an acute kidney injury on top of his chronic kidney failure. He is still on TPN for nutritional support. His last hemodialysis was on on 08/12/2023. Nephrology on the case. The patient remains on Eraxis and IV meropenem. Afebrile. Hemodynamically stable. Currently on oxygen at 2.5 L. No signs of any respiratory distress. He is a poor historian in general. On today's evaluation on 08/18/2023, the patient continues to have some abdominal distention and abdominal pain. He is a very poor historian. He cannot provide adequate description of the symptoms that he is encountering. However on examination, he does have some direct tenderness over his entire abdomen. Based on that, abdominal x-ray was done and the patient was found to have diffuse air- filled loops of colon and small bowel consistent with stable adynamic ileus. Also, repeat blood work from today showed a WBC count of 12 with a hemoglobin of 7.9 and a platelet count of 557. BUN is at 38 with a creatinine of 2.3 and sodium levels at 133 with a potassium level of 5.6. The patient is being seen by general surgery. The patient remains on TPN for nutritional support. The patient has no active respiratory issues for now. The patient is currently on oxygen at 2 L/min nasal cannula with a pulse ox of 98%. Afebrile. Hemodynamically stable. Remains on Eraxis and meropenem. Remains on TPN for nutritional support. IV fluids are in the form of normal saline at rate of 50 cc an hour. Oral intake remains quite diminished. The patient was also seen by nephrology. He has an acute on top of chronic kidney injury currently hemodialysis dependent. His last dialysis was on 08/12/2023. No further dialysis been done since. He is being assessed on a daily basis. Dow catheter is in place. Echocardiogram shows a preserved LV function. On today's evaluation of 08/19/2023, patient is being seen for a follow-up. Oral intake is still diminished and the patient remains on TPN for nutritional support. His blood work remained stable. Creatinine continues to improve and is currently down to 2.1 with a BUN of 39 and sodium levels at 133 with a potassium level of 5.3. WBC count is at 12 with a hemoglobin of 7.5. The patient is currently on oxygen at 2 L with a pulse ox of 94 to 97%. No other significant events overnight. The patient remains on Eraxis and meropenem. The patient remains on TPN for nutritional support. IV fluids are running at a rate of 50 cc an hour. Patient is being seen by general surgery regarding postoperative care. He is felt to have some degree of ileus. Conservative management has been recommended. On today's evaluation of 08/20/2023, patient is being seen for a follow-up. This patient is having a prolonged recovery from his abdominal surgery. He continues to have some abdominal discomfort and ileus and unable to resume his oral intake at adequate capacity. Based on that, the patient has been maintained on TPN for nutritional support. The patient is post lysis of adhesions and decompression enterostomy and the patient essentially postop day #11. He has also baseline confusion. White cell count of 14.2 with hemoglobin 8.7, BUN 39 with a creatini ne of 2.05 and a sodium levels at 139 with a potassium level of 5.2. Noted renal function continues to improve. Remains on meropenem and Eraxis. Remains on TPN for nutritional support. On today's evaluation of 08/21/2023, the patient is being seen for a follow-up. The patient is post robotic assisted laparoscopic lysis of adhesions and decompression enterostomy the patient is currently postop day # 12. Abdomen seems to be soft on today's evaluation. No nausea or emesis. His oral intake i s quite diminished and the patient remains on TPN for nutritional support. He has baseline confusion. Unable to communicate effectively. He did have postoperative ileus following his surgery. Noted the patient essentially negative. His electrolytes are stable. BUN is at 39 with a creatinine 1.98 and the creatinine continues to improve. Sodium level is at 135 with a potassium level of 4.6. White cell count from yesterday was stable at 14.2 with hemoglobin 8.7. General surgery remains on the case. Afebrile on 2 L of oxygen by nasal cannula with a pulse ox of 97%. Remains on TPN. Remains on IV meropenem and Eraxis. Objective - Vital Signs Vital signs: Vital Signs Temp 97.4 F L 08/21/23 11:40 Pulse 90 08/21/23 11:40 Resp 19 08/21/23 11:40 BP 137/72 08/21/23 11:40 Pulse Ox 97 08/21/23 11:40 FiO2 Intake & Output 08/20/23 08/21/23 08/21/23 18:59 06:59 18:59 Intake Total 947.2 982.4 126 Output Total 1400 1600 350 Balance -452.8 -617.6 -224 Intake: Intake, IV Titration 947.2 982.4 Amount Mvi, Adult No.4 with Vit 947.2 982.4 K 10 ml Trace (Conc-1Ml/ Dose) 1 ml Sodium Acetate 30 meq Calcium Gluconate 1 gm Magnesium Sulfate gm 1.5 gm In Amino Acids 5 %/Dextrose 20 % 1,000 ml @ 48 mls/hr IV . [id number] [facility] Rx#:[id number] Oral 126 Output: Urine 1400 1600 350 Uretheral (Dow) 600 Other: Voiding Method Indwelling Catheter Indwelling Catheter Indwelling Catheter # Bowel Movements 1 - Exam An 83-year-old male patient, on room air, no acute distress. No respiratory difficulty. The patient is currently on 2 L of oxygen by nasal cannula. HEENT examination is grossly unremarkable. Mucous membranes are moist. No oral lesions. Neck supple. Full range of motion. No adenopathy thyromegaly or neck vein distention. Cardiovascular examination reveals regular rhythm rate. S1-S2 normal. No S3 or S4. No discernible murmur noted. Lungs reveal clear breath sounds. Breath sounds are equal bilaterally. No ad ventitious lung sounds including wheezes rhonchi or crackles. Abdomen is tender on palpation. No bowel sounds. Hypoactive bowel sounds. Surgical wound site are all dry clean and intact. Extremities are intact. No cyanosis clubbing or edema. Skin is without rash or lesion. Neurologic examination is brief but nonfocal. - Labs CBC & Chem 7: 08/20/23 08:37 08/21/23 09:21 Labs: Abnormal Lab Results - Last 24 Hours (Table) 08/21/23 08/21/23 Range/Units 00:01 09:21 Sodium 135 L (137-145) mmol/L Chloride 109 H (98-107) mmol/L BUN 39 H (9-20) mg/dL Creatinine 1.98 H (0.66-1.25) mg/dL Glucose 103 H (74-99) mg/dL POC Glucose (mg/dL) 113 H (70-110) mg/dL Calcium 7.9 L (8.4-10.2) mg/dL Alkaline Phosphatase 356 H (38-126) U/L Total Protein 4.9 L (6.3-8.2) g/dL Albumin 2.0 L (3.5-5.0) g/dL Assessment and Plan Plan: Acute bowel obstruction. The patient had bowel obstruction and intraoperatively, the patient was found to have severe sigmoid diverticulosis without diverticulitis, severe small bowel diverticulosis involving the jejunum and volvulus of the right lower quadrant that was reduced and mesenteric adhesions with multiple pelvic adhesions involving the sigmoid colon that were released. Decompression of the bowel was done. The patient has positive intra-abdominal cultures consistent with peritonitis. The patient has positive Enterobacter and Enterococcus faecium currently on a combination of Eraxis and meropenem. The patient is currently postop day # 12. On today's examination, abdomen is less tender. Oral intake is quite diminished and the patient is essentially relying on TPN for nutritional support. Peritonitis secondary to above Abdominal pain with diminished oral intake/adynamic ileus. Remains on TPN for nutritional support. O abdomen is less tender on today's evaluation. Seems to be essentially soft. Acute hypoxemic respiratory failure secondary to above, history of COPD but is a lifelong non-smoker and the patient is currently on 2 L of oxygen by nasal cannula Acute on chronic kidney injury, received hemodialysis the last hemodialysis session was on 08/12/2023, currently being monitored by nephrology. Creatinine level continues to improve. Mild leukocytosis History of coronary disease with previous stent placement Hypertension Hyperlipidemia Hypothyroidism Dementia Lifelong non-smoker Plan: Clinically stable on 2 L of oxygen by nasal cannula and hemodynamically stable. Monitor the white cell count Monitor renal function creatinine, creatinine continues to improve on a daily basis. General surgery evaluation Gradually advance diet as tolerated to general surgery is on the case Continue TPN for nutritional support General surgery is on the case Remains on meropenem and Eraxis Surgical services are following Physical therapy Monitor electrolytes DNR CODE STATUS
[2023-08-21 16:28] LABS: Glucose,Whole Blood 100 mg/dL (70-110)
[2023-08-22 00:09] LABS: Glucose,Whole Blood 102 mg/dL (70-110)
[2023-08-22] MEDS: MVI, ADULT NO.4 WITH VIT K 10 ML, TRACE (CONC-1ML/DOSE) 1 ML, SODIUM ACETATE 40 MEQ, CA... IV SCH (03:17)
[2023-08-22 06:03] LABS: Glucose,Whole Blood 90 mg/dL (70-110)
[2023-08-22 07:42] LABS: ALT 34 U/L (4-49); AST 53 U/L (17-59); African American GFR (CKD) 40 (>60 ml/min/1.73 sqM); Albumin 2.2 g/dL (3.5-5.0); Alkaline Phosphatase 372 U/L (38-126); Anion Gap 7 mmol/L; Blood Urea Nitrogen 39 mg/dL (9-20); Calcium 8.1 mg/dL (8.4-10.2); Carbon Dioxide 18 mmol/L (22-30); Chloride 110 mmol/L (98-107); Glucose 79 mg/dL (74-99); Non-African American GFR(CKD) 35 (>60 ml/min/1.73 sqM); Phosphorus 3.2 mg/dL (2.5-4.5); Potassium 4.8 mmol/L (3.5-5.1); Sodium 135 mmol/L (137-145); Total Bilirubin 0.3 mg/dL (0.2-1.3); Total Protein 5.4 g/dL (6.3-8.2)
[2023-08-22 09:15] LABS: Basophils # (A) 0.1 k/uL (0-0.2); Basophils % (A) 1 %; Eosinophils # (A) 0.8 k/uL (0-0.7); Eosinophils % (A) 8 %; HCT 24.9 % (39.0-53.0); HGB 7.8 gm/dL (13.0-17.5); Lymphocytes # (A) 1.3 k/uL (1.0-4.8); Lymphocytes % (A) 13 %; MCH 28.4 pg (25.0-35.0); MCHC 31.4 g/dL (31.0-37.0); MCV 90.3 fL (80.0-100.0); Mean Platelet Volume 7.5; Monocytes # (A) 0.6 k/uL (0-1.0); Monocytes % (A) 6 %; Neutrophils # (A) 6.6 k/uL (1.3-7.7); Neutrophils % (A) 69 %; Platelet Count 850 k/uL (150-450); RBC 2.76 m/uL (4.30-5.90); RDW 14.8 % (11.5-15.5); Reticulocyte % 3.2 % (0.5-2.0); WBC 9.5 k/uL (3.8-10.6)
--- NOTE | 2023-08-22 09:35 | XR ---
EXAMINATION TYPE: XR KUB DATE OF EXAM: 08/22/2023 9:07 AM CLINICAL INDICATION:Male, 83 years old with history of bowel obstruction; [facility] COMPARISON: 08/03/2023, CT 08/19/2023. TECHNIQUE: One radiographic view of the abdomen was obtained. FINDINGS/IMPRESSION: Oral contrast from CT or 08/19/2023 is throughout the colon and extending to the sigmoid colon. No carol dence for bowel obstruction.
--- NOTE | 2023-08-22 11:34 | P.PN ---
Subjective patient is seen for follow-up for acute kidney injury. status post temporary hemodialysis. Renal function has improved. Patient is comfortable awake. He denies any significant complaints. serum creatinine at 1.7 down from 1.98 yesterday. Objective - Vital Signs Vital signs: Vital Signs Temp 97.9 F 08/22/23 07:58 Pulse 99 08/22/23 07:58 Resp 16 08/22/23 07:58 BP 168/83 08/22/23 07:58 Pulse Ox 100 08/22/23 07:58 FiO2 Intake & Output 08/21/23 08/22/23 08/22/23 18:59 06:59 18:59 Intake Total 126 0 Output Total 350 1999 Intake: Oral 126 0 Output: Urine 350 1999 Other: Voiding Method Indwelling Catheter Indwelling Catheter Indwelling Catheter # Bowel Movements 1 - Exam patient is sleeping but arousable. No acute distress Examination of the heart S1 and S2 Examination of the lungs bilateral breath sounds are heard Abdomen is soft nontender Examination of lower extremities shows no significant edema DESIGN INTERN exam shows patient is moving all 4 extremities - Labs CBC & Chem 7: 08/22/23 08:24 08/22/23 05:46 Labs: Abnormal Lab Results - Last 24 Hours (Table) 08/22/23 08/22/23 Range/Units 05:46 08:24 RBC 2.76 L (4.30-5.90) m/uL Hgb 7.8 L (13.0-17.5) gm/dL Hct 24.9 L (39.0-53.0) % Plt Count 850 H (150-450) k/uL Eosinophils # 0.8 H (0-0.7) k/uL Retic Count 3.2 H (0.5-2.0) % Sodium 135 L (137-145) mmol/L Chloride 110 H (98-107) mmol/L Carbon Dioxide 18 L (22-30) mmol/L BUN 39 H (9-20) mg/dL Creatinine 1.76 H (0.66-1.25) mg/dL Calcium 8.1 L (8.4-10.2) mg/dL Alkaline Phosphatase 372 H (38-126) U/L Total Protein 5.4 L (6.3-8.2) g/dL Albumin 2.2 L (3.5-5.0) g/dL Assessment and Plan Assessment: 1. Acute kidney injury secondary to hemodynamic ATN. No hydronephrosis noted on CAT scan. Started on hemodialysis August 10, 2023. Last dialysis August 12, 2023. Permacath removed August 19, 2023. Renal function improving. Creatinine 1.7 today. Nonoliguric. 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 Heme/onc following. 2. Chronic kidney disease stage IIIb with baseline creatinine 1.3-1.5 secondary to nephrosclerosis. 3. Partial small bowel obstruction. Receiving TPN. Surgery following. 4. Metabolic acidosis secondary to acute kidney injury and IV fluids. Better. 5. Atrial tachycardia status post Cardizem drip. On metoprolol. Cardiology following. 6. Anemia. Iron deficiency noted - s/p IV iron. 7. Hyperkalemia secondary to acute kidney injury. improved. Plan: continue to monitor volume status closely. Continue with Dow catheter Continue to avoid nephrotoxins continue TPN.
[2023-08-22 12:02] LABS: Glucose,Whole Blood 92 mg/dL (70-110)
--- NOTE | 2023-08-22 12:20 | P.PN ---
Subjective Progress Note Date: 08/22/23 CHIEF COMPLAINT: Abdominal pain HISTORY OF PRESENT ILLNESS: Patient with small bowel obstruction status post robotic assisted laparoscopic lysis of adhesions and decompressive enterostomy on 08/08/2023. Patient is lying in bed. No evidence of pain. Patient has been having bowel movements. KUB x-ray completed showing oral contrast from August 18 is throughout the colon and extending to the sigmoid colon. No evidence for bowel obstruction. Afebrile. WBC 9.5 Hgb 7.8 creatinine 1.76 sodium 138 pota ssium 4.8 PHYSICAL EXAM: VITAL SIGNS: Reviewed GENERAL: Well-developed in no acute distress. HEENT: No sclera icterus. Extraocular movements grossly intact. Moist buccal mucosa. Head is atraumatic, normocephalic. Hears conversational speech. No nasal drainage. NECK: Supple without lymphadenopathy. CHEST: Non-labored respirations and equal bilateral excursions. CARDIOVASCULAR: Palpable 2+ radial pulses. ABDOMEN: Nondistended. Nontender. No signs of peritonitis. nontender. Incision sites clean dry and intact. MUSCULOSKELETAL: No clubbing or cyanosis. NEUROLOGIC: No focal or lateralizing signs. Cranial nerves II through XII grossly intact. PSYCH: Appropriate affect. Alert and oriented to person, place and time. SKIN: Well perfused. Good skin turgor. ASSESSMENT: 1. Small bowel obstruction due to adhesion, lower pelvis left lower quadrant status post lysis of adhesions and decompressive enterostomy 2. Expected ileus due to physical inactivity, spinal stenosis and chronic back pain and acute renal failure 3. Acute renal failure 4. Sigmoid diverticulosis 5. Left lower quadrant abdominal pain 6. Internal hernia pelvis PLAN: -Clinically patient is having flatus and bowel movements. He is tolerating ground diet. KUB x-ray completed showing no evidence of bowel obstruction. -Due to patient's comorbidities expect longer time for recovery -Continue TPN -Continue supportive care Physician Mechanical Engineering Professor note has been reviewed by physician. Signing provider agrees with the documented findings, assessment, and plan of care. Objective - Vital Signs Vital signs: Vital Signs Temp 97.9 F 08/22/23 07:58 Pulse 99 08/22/23 07:58 Resp 16 08/22/23 07:58 BP 168/83 08/22/23 07:58 Pulse Ox 100 08/22/23 07:58 FiO2 Intake & Output 0408/22/23 08/22/23 18:59 06:59 18:59 Intake Total 126 0 Output Total 1999 - Intake: Oral 126 0 Output: Urine 1999 Other: Voiding Method Indwelling Catheter Indwelling Catheter Indwelling Catheter # Bowel Movements 1 - Labs CBC & Chem 7: 08/22/23 08:24 08/22/23 05:46 Labs: Abnormal Lab Results - Last 24 Hours (Table) 08/22/23 08/22/23 Range/Units 05:46 08:24 RBC 2.76 L (4.30-5.90) m/uL Hgb 7.8 L (13.0-17.5) gm/dL Hct 24.9 L (39.0-53.0) % Plt Count 850 H (150-450) k/uL Eosinophils # 0.8 H (0-0.7) k/uL Retic Count 3.2 H (0.5-2.0) % Sodium 135 L (137-145) mmol/L Chloride 110 H (98-107) mmol/L Carbon Dioxide 18 L (22-30) mmol/L BUN 39 H (9-20) mg/dL Creatinine 1.76 H (0.66-1.25) mg/dL Calcium 8.1 L (8.4-10.2) mg/dL Alkaline Phosphatase 372 H (38-126) U/L Total Protein 5.4 L (6.3-8.2) g/dL Albumin 2.2 L (3.5-5.0) g/dL
--- NOTE | 2023-08-22 12:30 | P.PN ---
Subjective Progress Note Date: 08/22/23 Principal diagnosis: Reason for follow-up is fever likely abdominal source Patient is a 83-year-old male with a past medical history significant for coronary disease COPD dementia hypertension hyperlipidemia reflux presenting to the hospital for evaluation of abdominal pain bloating has been diagnosed with the distal small bowel obstruction developing a fever concerning for possible abdominal sepsis prompting this consultation.Patient is status post robotic assisted laparoscopic lysis of adhesion extensive and decompressive enterostomy that was completed on 08/08/2023 On today's evaluation that is 08/22/2023,the patient remains to be afebrile, patient is slightly more awake alert today, currently on 2 L nasal cannula supplemental oxygen however denies any shortness of breath no chest pain or cough.Patient mention abdominal pain has decreased in intensity no nausea no vomiting has been reported. Patient white count normalized to 9.5, creatinine 1.76 Objective - Vital Signs Vital signs: Vital Signs Temp 97.9 F 08/22/23 07:58 Pulse 84 08/22/23 12:27 Resp 16 08/22/23 07:58 BP 168/83 08/22/23 07:58 Pulse Ox 100 08/22/23 07:58 FiO2 Intake & Output 08/21/23 08/22/23 08/22/23 18:59 06:59 18:59 Intake Total 126 0 Output Total 350 1999 Intake: Oral 126 0 Output: Urine 350 1999 Other: Voiding Method Indwelling Catheter Indwelling Catheter Indwelling Catheter # Bowel Movements 1 - Exam GENERAL DESCRIPTION: An elderly male up in the chair in no distress RESPIRATORY SYSTEM: Unlabored breathing , decreased breath sounds at bases HEART: S1 S2 regular rate and rhythm , ABDOMEN: Soft , no tenderness EXTREMITIES: No edema feet - Labs CBC & Chem 7: 08/22/23 08:24 08/22/23 05:46 Labs: Abnormal Lab Results - Last 24 Hours (Table) 08/22/23 08/22/23 Range/Units 05:46 08:24 RBC 2.76 L (4.30-5.90) m/uL Hgb 7.8 L (13.0-17.5) gm/dL Hct 24.9 L (39.0-53.0) % Plt Count 850 H (150-450) k/uL Eosinophils # 0.8 H (0-0.7) k/uL Retic Count 3.2 H (0.5-2.0) % Sodium 135 L (137-145) mmol/L Chloride 110 H (98-107) mmol/L Carbon Dioxide 18 L (22-30) mmol/L BUN 39 H (9-20) mg/dL Creatinine 1.76 H (0.66-1.25) mg/dL Calcium 8.1 L (8.4-10.2) mg/dL Alkaline Phosphatase 372 H (38-126) U/L Total Protein 5.4 L (6.3-8.2) g/dL Albumin 2.2 L (3.5-5.0) g/dL Assessment and Plan (1) Fever Current Visit: Yes Status: Acute Code(s): R50.9 - FEVER, UNSPECIFIED SNOMED Code(s): 879326604 (2) Leukocytosis Current Visit: Yes Status: Acute Code(s): D72.829 - ELEVATED WHITE BLOOD CELL COUNT, UNSPECIFIED SNOMED Code(s): 340385284 (3) Small bowel obstruction Current Visit: Yes Status: Acute Code(s): K56.609 - UNSP INTESTNL OBST, UNSP TO PARTIAL VERSUS COMPLETE OBST SNOMED Code(s): 322126740 (4) Peritonitis Current Visit: Yes Status: Acute Code(s): K65.9 - PERITONITIS, UNSPECIFIED SNOMED Code(s): 60810929 Plan: 1patient with low-grade fever elevated white count and this patient presented to hospital with abdominal pain and bloating and has been diagnosed with the small bowel obstruction likely etiology for his low-grade fever and elevated white count, the patient is status post laparoscopic lysis of adhesion and enterostomy abdominal cultures obtained which are currently growing Enterococcus drug-resistant Enterobacter and Marybteh 2-patient is afebrile, patient white count has normalized as of 08/22/2023 3-patient continue with meropenem and Eraxis and will monitor his clinical course closely Dictation was produced using [employer] dictation software. please excuse any grammatical, word or spelling errors. Time with Patient: Less than 30
--- NOTE | 2023-08-22 13:21 | P.PN ---
Subjective Progress Note Date: 08/22/23 Progress note Date of service 08/22/[address] Griffin. Patient seen and evaluated [id number] at bedside Patient feels better today and comfortable the degree of pain has been improving. Vital sign temperature 98 F axillary Pulse rate 84 bpm regular Respiratory rate 16/min nonlabored. Blood pressure 109/78 with a mean pressure 108. Oxygen saturations 100% on nasal cannula 2 L/min. On exam: Head and neck: No changes with the all left facial abnormality chronic Oropharynx natural teeth Neck was supple no JVD no thyromegaly no lymphadenopathy trachea midline. Chest increased anteroposterior diameter normal breath sounds no wheezes or rhonchi with a history of COPD. Heart regular sinus rhythm. Abdomen positive bowel sounds, improved tenderness on the abdomen. Still distended tympanitic. Extremities: No edema positive pulses Neurologically no changes Assessment: 1. Severe protein calorie deficiency secondary to prolonged starvation currently on TPN and Intralipid IV 2. Status post small bowel obstruction underwent robotic laparoscopic surgery for lysis of adhesion. 3. Followed by ileus prolonged. Appears to be improving. 4. Acute kidney injury followed by hemodialysis currently improved with the creatinine 1.76 Underlying history of chronic kidney disease stage III with a GFR currently 35 on epic. 5. History of spinal stenosis. 6. Platelet count 850 elevated patient seen by hematology oncology no forethought note. Plan: Continue monitoring Continue the current treatment and medication. Objective - Vital Signs Vital signs: Vital Signs Temp 98.0 F 08/22/23 12:32 Pulse 87 08/22/23 12:32 Resp 16 08/22/23 12:32 BP 169/78 08/22/23 12:32 Pulse Ox 100 08/22/23 12:32 FiO2 Intake & Output 08/21/23 08/22/23 08/22/23 18:59 06:59 18:59 Intake Total 126 0 Output Total 350 1999 - Intake: Oral 126 0 Output: Urine 350 1999 Other: Voiding Method Indwelling Catheter Indwelling Catheter Indwelling Catheter # Bowel Movements 1 - Labs CBC & Chem 7: 08/22/23 08:24 08/22/23 05:46 Labs: Abnormal Lab Results - Last 24 Hours (Table) 08/22/23 08/22/23 Range/Units 05:46 08:24 RBC 2.76 L (4.30-5.90) m/uL Hgb 7.8 L (13.0-17.5) gm/dL Hct 24.9 L (39.0-53.0) % Plt Count 850 H (150-450) k/uL Eosinophils # 0.8 H (0-0.7) k/uL Retic Count 3.2 H (0.5-2.0) % Sodium 135 L (137-145) mmol/L Chloride 110 H (98-107) mmol/L Carbon Dioxide 18 L (22-30) mmol/L BUN 39 H (9-20) mg/dL Creatinine 1.76 H (0.66-1.25) mg/dL Calcium 8.1 L (8.4-10.2) mg/dL Alkaline Phosphatase 372 H (38-126) U/L Total Protein 5.4 L (6.3-8.2) g/dL Albumin 2.2 L (3.5-5.0) g/dL
[2023-08-22 15:52] LABS: % Iron Saturation 19.43 (15.00-50.00)
--- NOTE | 2023-08-22 17:04 | P.PN ---
Subjective Progress Note Date: 08/22/23 This is a 83-year-old male patient with a known history of coronary artery disease with previous stent placement, dementia, hypertension, hyperlipidemia, hypothyroidism, non-smoker who presented here to the emergency room on 08/01/2023 with abdominal pain. He had been followed by surgical services. He did have a nasogastric tube which had approximately 2100 cc output once put in. However the patient inadvertently pulled it out last night. Today he had developed increased abdominal discomfort, tachycardia and shortness of breath. We were consulted for possible transfer to the ICU. He is seen today on the regular medical floor. He is awake and alert. He denies any pain at rest. He is tender to palpation. He is tachycardic, sinus. Currently afebrile. Continue O2 saturations in the mid 90s on 3 L/min per nasal cannula. Blood pressure stable. Blood cultures reveal no growth. White count 8.5. Hemoglobin 12.6. Platelets 373. Sodium 139. Potassium 4.6. Bicarb 14. BUN 34. Creatinine 3.11. Glucose 88. Amylase 73. Lipase 49. CT scan of the abdomen today revealed bowel obstruction pattern. Small amount of free fluid. Chest x-ray reveals no acute cardiopulmonary process. A nasogastric tube has been reinserted and in good position. He is currently on Zosyn. Patient was seen and examined today on 08/05/2023, patient is doing much better today compared to the last 2 days, less abdominal pain, no nausea no vomiting, continues to have nasogastric tube in place.WBC count is 9.9 hemoglobin 11.3 basic metabolic profile is normal however his renal functioning is worse with BUN up to 69 creatinine 5.60, and that is being addressed by nephrology on the case. His acute kidney injury is felt to be related to hemodynamic ATN, no hydronephrosis on CT of the abdomen, patient does have history of chronic kidney disease stage IIIb. Patient is on Cardizem drip now for atrial tachycardia. And cardiology is following Reevaluate today on 08/06/23, patient pulled his nasogastric tube yesterday, continues to have abdominal distention and abdominal pain. Apparently multiple attempts by nurses to place the nasogastric tube were unsuccessful. Surgery is to address the nasogastric tube placement and or exploratory laparotomy on this patient to relieve his bowel obstruction.WBC count today is 8.4 hemoglobin 10.4, basic metabolic profile is normal renal profile is worsening with a BUN of 85 creatinine 6.08 and his renal profile is being addressed by nephrology on the case Patient was reevaluated today on 08/07/2023, continues to have abdominal pain, continues to have small bowel obstruction, and now he is developing worsening renal disease. From the looks of it, patient may be heading towards dialysis. Patient was seen by Dr. Truong today, and I believe he is recommending exploratory laparotomy after he is seen by Dr. Goodman tomorrow. Continues to have decent urine output, 600 cc in the last 8 hours. Could not have a nasogastric tube placed back, patient is getting in Progress note dated August 08, 2023. 83-year-old male seen in room 378. The patient is currently on 2 L of oxygen. The patient is getting dextrose with half-normal saline at 100 cc an hour. He does have a significantly tender abdomen, anytime he burps, or coughs. Also, he is tender on palpation. Current labs include a white count 9.5, hemoglobin 11.4, hematocrit 36, and a platelet count of 343,000. Sodium 143, potassium 4.2, chlorides 107, CO2 27, BUN 93, creatinine 5.62. Calcium is 8, with a phosphorus of 5.4. Glucose is 97. Blood cultures are negative. Progress note dated August 09, 2023. 83-year-old male seen today in room 378. The patient is currently on 3 L of oxygen. NG tube remains in place. He is getting D5 with half-normal saline at 100 cc an hour. The patient has significant abdominal pain on palpation of the abdomen. Labs today include a white count 9.3, hemoglobin 10.8, hematocrit 33.9, and a platelet count of 355,000. Sodium 140, potassium 4.4, chlorides 110, CO2 22, BUN 87, and creatinine 5.53. Glucose is 116. Albumin is 2. All microbiologic sampling is thus far negative. Progress note dated August 10, 2023. 83-year-old male seen again in room 378. The patient again pulled out his NG tube. The patient is on room air. The patient is getting TPN at 30 cc an hour. The patient still has significant abdominal discomfort on palpation. I count 10.5, hemoglobin 10.7, hematocrit 33.8, and platelet count is 384,000. Sodium 140, potassium 3.8, chlorides 107, CO2 20, anion gap 13, BUN 92, creatinine 5.60. Glucose is 123. Magnesium 1.9. Phosphorus 5.2. Progress note dated August 11, 2023. 83-year-old male seen today in room 377. Currently, the patient is receiving hemodialysis. He is on room air. The patient is a DO NOT RESUSCITATE patient. He is getting TPN at 48 cc an hour. He continues on Eraxis, and Zosyn. No new laboratory data today as yet, other than a glucose of 106. Chest x-ray from yesterday shows some mild streaky basilar atelectasis. Progress note dated August 12, 2023. 83-year-old male, seen in room 377. Currently, the patient is on room air. The patient is getting TPN at 48 cc an hour. He continues on Eraxis, and meropenem. Current labs include a sodium 133, potassium 3.2, chlorides 102, CO2 24, BUN 37, creatinine 2.53. Glucose is 128. Calcium 7.5. Albumin 1.9. The patient does not appear to be as tender, on palpation of the abdomen, as he has been, on previous days. Progress note dated August 13, 2023. 83-year-old male seen today in room 377. The patient continues on room air. Sa turations are 94%. The rest of his vital signs are relatively stable. The patient continues on TPN at 48 cc an hour, and D5.45, at 100 cc an hour. He also continues on meropenem, and the antifungal, and Eraxis. Current laboratory data includes a sodium 131, potassium 3.3, chlorides 101, CO2 25, BUN 23, creatinine 1.96. Glucose is 115. Albumin is 1.9. Wound cultures were positive for Enterobacter aerogenes, Marybeth albicans, and Enterococcus faecalis. The patient is seen today August 14, 2023 in follow-up on the regular medical floor. He is currently resting in bed. He denies any worsening abdominal pain. He is maintaining O2 saturations in the 90s on room air. He has D5 W and 0.45 normal saline at 100 MLS per hour. He remains on TPN at 40 MLS per hour. Wound cultures were positive for Enterobacter aerogenes, Marybeth albicans, Enterococcus faecalis. White count 11.4. Hemoglobin 9.5. Platelets 358. Sodium 130. Potassium 3.8. Bicarb 25. BUN 28. Creatinine 2.29. Glucose 98. C-reactive protein 6.5. He is continued on meropenem and Eraxis. Continued on bronchodilators. Heparin for DVT prophylaxis. The patient is seen today August 22, 2023 in follow-up on the regular medical floor. He is currently awake and alert in no acute distress. He is maintaining O2 saturations in the 90s on 2 L/min per nasal cannula. His surgery was back on August 08, 2023. He remains on TPN for nutritional support. He is having bowel movements. He is continued on antibiotics in the form of meropenem and Eraxis. Remains on bronchodilators. Remains on heparin for DVT prophylaxis. White count 9.5. Hemoglobin 7.8. Sodium 135. Potassium 4.8. Bicarb 18. BUN 39. Creatinine 1.76. AST 53. ALT 34. Objective - Vital Signs Vital signs: Vital Signs Temp 97.6 F 08/22/23 16:45 Pulse 91 08/22/23 16:45 Resp 16 08/22/23 16:45 BP 155/75 08/22/23 16:45 Pulse Ox 100 08/22/23 16:45 FiO2 Intake & Output 08/21/23 08/22/23 08/22/23 18:59 06:59 18:59 Intake Total 126 0 Output Total 350 1999 1175 Balance -224 9 Weight 79.5 kg Intake: Oral 126 0 Output: Urine 350 1999 117 Other: Voiding Method Indwelling Catheter Indwelling Catheter Indwelling Catheter # Bowel Movements 2 - Exam GENERAL EXAM: Alert, weak 83-year-old male, on room air, comfortable in no apparent distress. HEAD: Normocephalic. EYES: Normal reaction of pupils, equal size. NOSE: Clear with pink turbinates. THROAT: No erythema or exudates. NECK: No masses, no JVD. CHEST: No chest wall deformity. LUNGS: Equal air entry with no crackles, wheeze, rhonchi or dullness. CVS: S1 and S2 normal with no audible murmur, regular rhythm. ABDOMEN: Incision sites clean dry well-approximated. No hepatosplenomegaly, normal bowel sounds, no guarding or rigidity. SPINE: No scoliosis or deformity SKIN: No rashes CENTRAL NERVOUS SYSTEM: No focal deficits, tone is normal in all 4 extremities. EXTREMITIES: There is no peripheral edema. No clubbing, no cyanosis. Peripheral pulses are intact. - Labs CBC & Chem 7: 08/22/23 08:24 08/22/23 05:46 Labs: Abnormal Lab Results - Last 24 Hours (Table) 08/22/23 08/22/23 08/22/23 Range/Units 05:46 08:24 08:24 RBC 2.76 L (4.30-5.90) m/uL Hgb 7.8 L (13.0-17.5) gm/dL Hct 24.9 L (39.0-53.0) % Plt Count 850 H (150-450) k/uL Eosinophils # 0.8 H (0-0.7) k/uL Retic Count 3.2 H (0.5-2.0) % Sodium 135 L (137-145) mmol/L Chloride 110 H (98-107) mmol/L Carbon Dioxide 18 L (22-30) mmol/L BUN 39 H (9-20) mg/dL Creatinine 1.76 H (0.66-1.25) mg/dL Calcium 8.1 L (8.4-10.2) mg/dL Iron 34 L (65-175) UG/DL TIBC 175 L (228-460) UG/DL Transferrin 125.0 L (204.0-354.0) mg/dL Alkaline Phosphatase 372 H (38-126) U/L Total Protein 5.4 L (6.3-8.2) g/dL Albumin 2.2 L (3.5-5.0) g/dL Assessment and Plan Assessment: Abdominal pain in a patient found to have a bowel obstruction and small amount of free fluid status post lysis of adhesions and decompressive enterostomy on 08/08/2023 Acute hypoxemic respiratory failure secondary to above, history of COPD but is a lifelong non-smoker recovered and on room air History of coronary disease with previous stent placement Hypertension Hyperlipidemia Hypothyroidism Dementia Lifelong non-smoker Plan: The patient was seen and evaluated Labs and medications reviewed Currently stable and on room air Remains on meropenem and Eraxis DNR CODE STATUS Plan is for [facility] at discharge We will continue to follow I have personally seen and examined the patient, performed the documentation and the assessment and plan as written. Number of minutes spent on the visit: 10.
[2023-08-22 18:08] LABS: Glucose,Whole Blood 102 mg/dL (70-110)
[2023-08-23 00:09] LABS: Glucose,Whole Blood 97 mg/dL (70-110)
[2023-08-23 05:59] LABS: Glucose,Whole Blood 98 mg/dL (70-110)
[2023-08-23 11:08] LABS: African American GFR (CKD) 44 (>60 ml/min/1.73 sqM); Anion Gap 2 mmol/L; Blood Urea Nitrogen 32 mg/dL (9-20); Carbon Dioxide 24 mmol/L (22-30); Chloride 109 mmol/L (98-107); Glucose 95 mg/dL (74-99); Magnesium 1.9 mg/dL (1.6-2.3); Non-African American GFR(CKD) 38 (>60 ml/min/1.73 sqM); Phosphorus 3.4 mg/dL (2.5-4.5); Potassium 4.3 mmol/L (3.5-5.1); Sodium 135 mmol/L (137-145)
--- NOTE | 2023-08-23 11:35 | P.PN ---
Subjective patient is seen for follow-up for acute kidney injury. status post temporary hemodialysis. Renal function has improved. Patient is comfortable awake. He denies any significant complaints. serum creatinine is down to 1.6. maintained on TPN Objective - Vital Signs Vital signs: Vital Signs Temp 98.3 F 08/23/23 08:52 Pulse 86 08/23/23 10:01 Resp 18 08/23/23 10:01 BP 163/79 08/23/23 08:52 Pulse Ox 96 08/23/23 08:52 FiO2 Intake & Output 08/22/23 08/23/23 08/23/23 18:59 06:59 18:59 Intake Total 240 987.2 0 Output Total 1175 1100 800 Balance -935 -112.8 -800 Weight 79.5 kg Intake: Intake, IV Titration 987.2 Amount Mvi, Adult No.4 with Vit 987.2 K 10 ml Trace (Conc-1Ml/ Dose) 1 ml Sodium Acetate 40 meq Calcium Gluconate 1 gm Magnesium Sulfate gm 1.5 gm In Amino Acids 5 %/Dextrose 20 % 1,000 ml @ 48 mls/hr IV . [id number] [facility] Rx#:[id number] Oral 240 0 0 Output: Urine 1175 1100 800 Other: Voiding Method Indwelling Catheter Indwelling Catheter Indwelling Catheter # Bowel Movements 2 1 - Exam patient is sleeping but arousable. No acute distress Examination of the heart S1 and S2 Examination of the lungs bilateral breath sounds are heard Abdomen is soft nontender Examination of lower extremities shows no significant edema LABORATORY COURIER exam shows patient is moving all 4 extremities - Labs CBC & Chem 7: 08/22/23 08:24 08/23/23 10:23 Labs: Abnormal Lab Results - Last 24 Hours (Table) 08/22/23 08/23/23 Range/Units 08:24 10:23 Sodium 135 L (137-145) mmol/L Chloride 109 H (98-107) mmol/L BUN 32 H (9-20) mg/dL Creatinine 1.62 H (0.66-1.25) mg/dL Calcium 8.0 L (8.4-10.2) mg/dL Iron 34 L (65-175) UG/DL TIBC 175 L (228-460) UG/DL Transferrin 125.0 L (204.0-354.0) mg/dL Assessment and Plan Assessment: 1. Acute kidney injury secondary to hemodynamic ATN. No hydronephrosis noted on CAT scan. Started on hemodialysis August 10, 2023. Last dialysis August 12, 2023. Permacath removed August 19, 2023. Renal function improving. Creatinine 1.6 today. Nonoliguric. 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 Heme/onc following. 2. Chronic kidney disease stage IIIb with baseline creatinine 1.3-1.5 secondary to nephrosclerosis. 3. Partial small bowel obstruction. Receiving TPN. Surgery following. 4. Metabolic acidosis secondary to acute kidney injury and IV fluids. Better. 5. Atrial tachycardia status post Cardizem drip. On metoprolol. Cardiology following. 6. Anemia. Iron deficiency noted - s/p IV iron. 7. Hyperkalemia secondary to acute kidney injury. improved. Plan: continue to monitor volume status closely. Continue with Dow catheter Continue to avoid nephrotoxins continue TPN.
[2023-08-23 12:13] LABS: Glucose,Whole Blood 121 mg/dL (70-110)
--- NOTE | 2023-08-23 12:13 | P.PN ---
Subjective Progress Note Date: 08/23/23 Principal diagnosis: Reason for follow-up is fever likely abdominal source Patient is a 83-year-old male with a past medical history significant for coronary disease COPD dementia hypertension hyperlipidemia reflux presenting to the hospital for evaluation of abdominal pain bloating has been diagnosed with the distal small bowel obstruction developing a fever concerning for possible abdominal sepsis prompting this consultation.Patient is status post robotic assisted laparoscopic lysis of adhesion extensive and decompressive enterostomy that was completed on 08/08/2023 On today's evaluation that is 08/23/2023, the patient continues to be afebrile, the patient is on 2 L nasal cannula oxygen breathing comfortably, the Pt denies having any chest pain or cough, the patient denies having any abdominal pain no vomiting has been complaining of pain mostly to the right knee and lower extremity area. Patient creatinine is 1.62 white count was 9.5 as of yesterday CBC pending from this morning Objective - Vital Signs Vital signs: Vital Signs Temp 98.3 F 08/23/23 08:52 Pulse 100 08/23/23 12:06 Resp 18 08/23/23 10:01 BP 163/79 08/23/23 08:52 Pulse Ox 96 08/23/23 08:52 FiO2 Intake & Output 08/22/23 08/23/23 08/23/23 18:59 06:59 18:59 Intake Total 240 987.2 0 Output Total 1175 1100 800 Balance -935 -112.8 -800 Weight 79.5 kg Intake: Intake, IV Titration 987.2 Amount Mvi, Adult No.4 with Vit 987.2 K 10 ml Trace (Conc-1Ml/ Dose) 1 ml Sodium Acetate 40 meq Calcium Gluconate 1 gm Magnesium Sulfate gm 1.5 gm In Amino Acids 5 %/Dextrose 20 % 1,000 ml @ 48 mls/hr IV . [id number] [facility] Rx#:[id number] Oral 240 0 0 Output: Urine 1175 1100 800 Other: Voiding Method Indwelling Catheter Indwelling Catheter Indwelling Catheter # Bowel Movements 2 1 - Exam GENERAL DESCRIPTION: An elderly male up in the chair in no distress RESPIRATORY SYSTEM: Unlabored breathing , decreased breath sounds at bases HEART: S1 S2 regular rate and rhythm , ABDOMEN: Soft , no tenderness EXTREMITIES: No edema feet - Labs CBC & Chem 7: 08/22/23 08:24 08/23/23 10:23 Labs: Abnormal Lab Results - Last 24 Hours (Table) 08/22/23 08/23/23 08/23/23 Range/Units 08:24 10:23 12:10 Sodium 135 L (137-145) mmol/L Chloride 109 H (98-107) mmol/L BUN 32 H (9-20) mg/dL Creatinine 1.62 H (0.66-1.25) mg/dL POC Glucose (mg/dL) 121 H (70-110) mg/dL Calcium 8.0 L (8.4-10.2) mg/dL Iron 34 L (65-175) UG/DL TIBC 175 L (228-460) UG/DL Transferrin 125.0 L (204.0-354.0) mg/dL Assessment and Plan (1) Fever Current Visit: Yes Status: Acute Code(s): R50.9 - FEVER, UNSPECIFIED SN OMED Code(s): 919025990 (2) Leukocytosis Current Visit: Yes Status: Acute Code(s): D72.829 - ELEVATED WHITE BLOOD CELL COUNT, UNSPECIFIED SNOMED Code(s): 124797579 (3) Small bowel obstruction Current Visit: Yes Status: Acute Code(s): K56.609 - UNSP INTESTNL OBST, UNSP TO PARTIAL VERSUS COMPLETE OBST SNOMED Code(s): 558572647 (4) Peritonitis Current Visit: Yes Status: Acute Code(s): K65.9 - PERITONITIS, UNSPECIFIED SNOMED Code(s): 33436585 Plan: 1patient with low-grade fever elevated white count and this patient presented to hospital with abdominal pain and bloating and has been diagnosed with the small bowel obstruction likely etiology for his low-grade fever and elevated white count, the patient is status post laparoscopic lysis of adhesion and enterostomy abdominal cultures obtained which are currently growing Enterococcus drug-resistant Enterobacter and Marybeth 2-patient is afebrile, patient white count has normalized as of 08/22/2023 3-patient did have some clinical improvement and will continue with meropenem and Eraxis and continue supportive care Dictation was produced using [employer] dictation software. please excuse any grammatical, word or spelling errors. Time with Patient: Less than 30
--- NOTE | 2023-08-23 13:01 | P.PN ---
Subjective Progress Note Date: 08/23/23 CHIEF COMPLAINT: Abdominal pain HISTORY OF PRESENT ILLNESS: Patient with small bowel obstruction status post robotic assisted laparoscopic lysis of adhesions and decompressive enterostomy on 08/08/2023. Patient is lying in bed. No evidence of pain. Patient has been having bowel movements. KUB x-ray completed showing oral contrast from August 18 is throughout the colon and extending to the sigmoid colon. No evidence for bowel obstruction. Nursing staff had reported poor oral intake. Afebrile. PHYSICAL EXAM: VITAL SIGNS: Reviewed GENERAL: Well-developed in no acute distress. HEENT: No sclera icterus. Extraocular movements grossly intact. Moist buccal mucosa. Head is atraumatic, normocephalic. Hears conversational speech. No nasal drainage. NECK: Supple without lymphadenopathy. CHEST: Non-labored respirations and equal bilateral excursions. CARDIOVASCULAR: Palpable 2+ radial pulses. ABDOMEN: Nondistended. Nontender. No signs of peritonitis. nontender. Incision sites clean dry and intact. MUSCULOSKELETAL: No clubbing or cyanosis. NEUROLOGIC: No focal or lateralizing signs. Cranial nerves II through XII grossly intact. PSYCH: Appropriate affect. Alert and oriented to person, place and time. SKIN: Well perfused. Good skin turgor. ASSESSMENT: 1. Small bowel obstruction due to adhesion, lower pelvis left lower quadrant status post lysis of adhesions and decompressive enterostomy 2. Expected ileus due to physical inactivity, spinal stenosis and chronic back pain and acute renal failure 3. Acute renal failure 4. Sigmoid diverticulosis 5. Left lower quadrant abdominal pain 6. Internal hernia pelvis PLAN: -Calorie count ordered to monitor patient's oral intake -Continue TPN for now until oral intake increases. -Clinically patient is having flatus and bowel movements. He is tolerating ground diet. KUB x-ray completed showing no evidence of bowel obstruction. -Due to patient's comorbidities expect longer time for recovery -Continue supportive care -Continue ground diet [employer] Child Care Attendant note has been reviewed by physician. Signing provider agrees with the documented findings, assessment, and plan of care. Objective - Vital Signs Vital signs: Vital Signs Temp 98.3 F 08/23/23 08:52 Pulse 92 08/23/23 09:05 Resp 18 08/23/23 08:52 BP 163/79 08/23/23 08:52 Pulse Ox 96 08/23/23 08:52 FiO2 Intake & Output 08/22/23 08/23/23 08/23/23 18:59 06:59 18:59 Intake Total 240 987.2 Output Total 1175 1100 Balance -935 -112.8 Weight 79.5 kg Intake: Intake, IV Titration 987.2 Amount Mvi, Adult No.4 with Vit 987.2 K 10 ml Trace (Conc-1Ml/ Dose) 1 ml Sodium Acetate 40 meq Calcium Gluconate 1 gm Magnesium Sulfate gm 1.5 gm In Amino Acids 5 %/Dextrose 20 % 1,000 ml @ 48 mls/hr IV . [id number] [facility] Rx#:[id number] Oral 240 0 Output: Urine 1175 1100 Other: Voiding Method Indwelling Catheter Indwelling Catheter # Bowel Movements 2 - Labs CBC & Chem 7: 08/22/23 08:24 08/23/23 10:23 Labs: Abnormal Lab Results - Last 24 Hours (Table) 08/22/23 Range/Units 08:24 Iron 34 L (65-175) UG/DL TIBC 175 L (228-460) UG/DL Transferrin 125.0 L (204.0-354.0) mg/dL
--- NOTE | 2023-08-23 13:33 | P.PN ---
Subjective Progress Note Date: 08/23/23 Progress note Date of service 08/23/[address] Griffin. Patient seen evaluation and at bedside, Patient sleeping. Laboratory: Sodium 135, potassium 4.3, chloride 109, currently dioxide 24, BUN 32, creatinine 1.62 and GFR 38. Glucose 95 fluctuating with the TPN and Intralipid. Calcium 8, and ionized calcium 5 normal. Magnesium and phosphorus within normal limit. Total sign heart rate 100 apical respiratory rate 18/min, blood pressure 155/75 with a mean 101, oxygen saturation 98% on 2 L nasal cannula. On exam: Patient is in deep sleep, Head and neck no changes with the underlying chronic left facial abnormalities. Oropharynx he has natural teeth allowed to eat gradually Neck was supple no JVD no thyromegaly no lymphadenopathy. Chest he has inspiratory expiratory wheezes bilateral with increased anteroposterior diameter with the start of COPD exacerbation and we will start him on Pulmicort nebulizer twice a day. Heart normal sinus rhythm tachycardic. Abdomen positive bowel sound and mildly distended. Extremities no edema and positive pulses. Neuro stable. Assessment: Renal function is improving and no need for for further dialysis and patient nonoliguric with the Dow catheter in place. Status post small bowel obstruction underwent robotic laparoscopic lysis of adhesion by Dr. Pinzon Followed by prolonged ileus with the abdominal distention pain however currently is improving. History of respiratory failure acute with the hypoxemia and history of asthma Underlying history of coronary artery disease. Still hypertensive. Plan On Pulmicort twice a day nebulizer with the underlying respiratory expiratory wheezes with the rise of acute exacerbation. 1. Patient followed by several concerns from and will continue the current treatment. Objective - Vital Signs Vital signs: Vital Signs Temp 98.3 F 08/23/23 08:52 Pulse 88 08/23/23 12:35 Resp 18 08/23/23 12:35 BP 155/75 08/23/23 12:35 Pulse Ox 98 08/23/23 12:35 FiO2 Intake & Output 08/22/23 08/23/23 08/23/23 18:59 06:59 18:59 Intake Total 240 987.2 110 Output Total 1175 1100 800 Balance -935 -112.8 -690 Weight 79.5 kg Intake: Intake, IV Titration 987.2 Amount Mvi, Adult No.4 with Vit 987.2 K 10 ml Trace (Conc-1Ml/ Dose) 1 ml Sodium Acetate 40 meq Calcium Gluconate 1 gm Magnesium Sulfate gm 1.5 gm In Amino Acids 5 %/Dextrose 20 % 1,000 ml @ 48 mls/hr IV . [id number] [facility] Rx#:[id number] Oral 240 0 110 Output: Urine 1175 1100 800 Other: Voiding Method Indwelling Catheter Indwelling Catheter Indwelling Catheter # Bowel Movements 2 1 - Labs CBC & Chem 7: 08/22/23 08:24 08/23/23 10:23 Labs: Abnormal Lab Results - Last 24 Hours (Table) 08/22/23 08/23/23 08/23/23 Range/Units 08:24 10:23 12:10 Sodium 135 L (137-145) mmol/L Chloride 109 H (98-107) mmol/L BUN 32 H (9-20) mg/dL Creatinine 1.62 H (0.66-1.25) mg/dL POC Glucose (mg/dL) 121 H (70-110) mg/dL Calcium 8.0 L (8.4-10.2) mg/dL Iron 34 L (65-175) UG/DL TIBC 175 L (228-460) UG/DL Transferrin 125.0 L (204.0-354.0) mg/dL
--- NOTE | 2023-08-23 14:39 | P.PN ---
Subjective Progress Note Date: 08/23/23 Principal diagnosis: Acute small bowel obstruction This is a 83-year-old male patient with a known history of coronary artery disease with previous stent placement, dementia, hypertension, hyperlipidemia, hypothyroidism, non-smoker who presented here to the emergency room on 08/01/2023 with abdominal pain. He had been followed by surgical services. He did have a nasogastric tube which had approximately 2100 cc output once put in. However the patient inadvertently pulled it out last night. Today he had developed increased abdominal discomfort, tachycardia and shortness of breath. We were consulted for possible transfer to the ICU. He is seen today on the regular [facility] floor. He is awake and alert. He denies any pain at rest. He is tender to palpation. He is tachycardic, sinus. Currently afebrile. Continue O2 saturations in the mid 90s on 3 L/min per nasal cannula. Blood pressure stable. Blood cultures reveal no growth. White count 8.5. Hemoglobin 12.6. Platelets 373. Sodium 139. Potassium 4.6. Bicarb 14. BUN 34. Creatinine 3.11. Glucose 88. Amylase 73. Lipase 49. CT scan of the abdomen today revealed bowel obstruction pattern. Small amount of free fluid. Chest x-ray reveals no acute cardiopulmonary process. A nasogastric tube has been reinserted and in good position. He is currently on Zosyn. Patient was seen and examined today on 08/05/2023, patient is doing much better today compared to the last 2 days, less abdominal pain, no nausea no vomiting, continues to have nasogastric tube in place.WBC count is 9.9 hemoglobin 11.3 basic metabolic profile is normal however his renal functioning is worse with BUN up to 69 creatinine 5.60, and that is being addressed by nephrology on the case. His acute kidney injury is felt to be related to hemodynamic ATN, no hydronephrosis on CT of the abdomen, patient does have history of chronic kidney disease stage IIIb. Patient is on Cardizem drip now for atrial tachycardia. And cardiology is following Reevaluate today on 08/06/23, patient pulled his nasogastric tube yesterday, co ntinues to have abdominal distention and abdominal pain. Apparently multiple attempts by nurses to place the nasogastric tube were unsuccessful. Surgery is to address the nasogastric tube placement and or exploratory laparotomy on this patient to relieve his bowel obstruction.WBC count today is 8.4 hemoglobin 10.4, basic metabolic profile is normal renal profile is worsening with a BUN of 85 creatinine 6.08 and his renal profile is being addressed by nephrology on the case Patient was reevaluated today on 08/07/2023, continues to have abdominal pain, continues to have small bowel obstruction, and now he is developing worsening renal disease. From the looks of it, patient may be heading towards dialysis. Patient was seen by Dr. Truong today, and I believe he is recommending exploratory laparotomy after he is seen by Dr. Goodman tomorrow. Continues to have decent urine output, 600 cc in the last 8 hours. Could not have a nasogastric tube placed back, patient is getting intermittently confused and he pulled out his nasogastric tube 2 days ago.Basic metabolic profile today was noted however his BUN is 89 creatinine up to 6.38 The patient is seen today August 22, 2023 in follow-up on the regular medical floor. He is currently awake and alert in no acute distress. He is maintaining O2 saturations in the 90s on 2 L/min per nasal cannula. His surgery was back on August 08, 2023. He remains on TPN for nutritional support. He is having bowel movements. He is continued on antibiotics in the form of meropenem and Eraxis. Remains on bronchodilators. Remains on heparin for DVT prophylaxis. White count 9.5. Hemoglobin 7.8. Sodium 135. Potassium 4.8. Bicarb 18. BUN 39. Creatinine 1.76. AST 53. ALT 34. Patient was reevaluated today on 08/23/2023, patient seems to be comfortable, not in pulmonary distress, he is on 2 L nasal cannula with O2 sats at 98%, however the patient seems to be a bit more confused, and keeps pulling on his boots, for no specific purpose. Labs today showed relatively normal electrolytes, BUN is 32 creatinine is down to 1.62 patient has no more issues related to his bowel obstruction, his medications were all reviewed, remains being followed by multiple consultants including infectious disease, remains on Eraxis for almost the last 2 weeks. Patient is also receiving Merrem, for almost 2 weeks. Patient is also receiving TPN. Pulmonary kraft we have a mostly on bronchodilators. Objective - Vital Signs Vital signs: Vital Signs Temp 98.3 F 08/23/23 08:52 Pulse 88 08/23/23 14:22 Resp 18 08/23/23 14:22 BP 155/75 08/23/23 12:35 Pulse Ox 98 08/23/23 12:35 FiO2 Intake & Output 08/22/23 08/23/23 08/23/23 18:59 06:59 18:59 Intake Total 240 987.2 110 Output Total 1175 1100 800 Balance -935 -112.8 -690 Weight 79.5 kg 79.5 kg Intake: Intake, IV Titration 987.2 Amount Mvi, Adult No.4 with Vit 987.2 K 10 ml Trace (Conc-1Ml/ Dose) 1 ml Sodium Acetate 40 meq Calcium Gluconate 1 gm Magnesium Sulfate gm 1.5 gm In Amino Acids 5 %/Dextrose 20 % 1,000 ml @ 48 mls/hr IV . [id number] [facility] Rx#:[id number] Oral 240 0 110 Output: Urine 1175 1100 800 Other: Voiding Method Indwelling Catheter Indwelling Catheter Indwelling Catheter # Bowel Movements 2 1 - Exam GENERAL EXAM: Revealed 83-year-old white male in no distress, but seems to be confused HEAD: Normocephalic. Atraumatic EYES: Normal reaction of pupils, equal size. NOSE: Clear with pink turbinates. THROAT: No erythema or exudates. NECK: No masses, no JVD. CHEST: No chest wall deformity. LUNGS: Clear bilaterally no rhonchi no wheezes CVS: S1 and S2 normal with no audible murmur, regular rhythm. ABDOMEN: Soft nontender no megaly no rebound no guarding. Good bowel sounds. SPINE: No scoliosis or deformity SKIN: No rashes CENTRAL NERVOUS SYSTEM: Confused, follows simple instructions. EXTREMITIES: No clubbing edema or cyanosis - Labs CBC & Chem 7: 08/22/23 08:24 08/23/23 10:23 Labs: Abnormal Lab Results - Last 24 Hours (Table) 08/22/23 08/23/23 08/23/23 Range/Units 08:24 10:23 12:10 Sodium 135 L (137-145) mmol/L Chloride 109 H (98-107) mmol/L BUN 32 H (9-20) mg/dL Creatinine 1.62 H (0.66-1.25) mg/dL POC Glucose (mg/dL) 121 H (70-110) mg/dL Calcium 8.0 L (8.4-10.2) mg/dL Iron 34 L (65-175) UG/DL TIBC 175 L (228-460) UG/DL Transferrin 125.0 L (204.0-354.0) mg/dL Assessment and Plan Assessment: Impression Abdominal pain in a patient found to have a bowel obstruction and small amount of free fluid status post lysis of adhesions and decompressive enterostomy on 08/08/2023 Acute hypoxemic respiratory failure secondary to above, history of COPD but is a lifelong non-smoker recovered and on room air Abdominal sepsis, patient is still receiving multiple antibiotics and antifungal therapy as per ID on the case History of coronary disease with previous stent placement Hypertension Hyperlipidemia Hypothyroidism Dementia Lifelong non-smoker history of mild intermittent asthma Recommendation: Continue present supportive care measures ID to decide on antibiotics and antifungal therapy Should start considering placement I believe the plan is to eventually send tomorrow DCF Will clear the patient for discharge if cleared by other consultants. Will continue for to follow for now Time with Patient: Less than 30
[2023-08-23 18:04] LABS: Glucose,Whole Blood 108 mg/dL (70-110)
[2023-08-23] MEDS: BUDESONIDE 1 MG/2 ML NEBU INHALATION SCH (21:53)
[2023-08-24] LABS: Glucose,Whole Blood 126 mg/dL (70-110)
[2023-08-24 06:10] LABS: Glucose,Whole Blood 113 mg/dL (70-110)
--- NOTE | 2023-08-24 11:28 | P.PN ---
Subjective patient is seen for follow-up for acute kidney injury. status post temporary hemodialysis. Renal function has improved. Patient is comfortable awake. He denies any significant complaints. serum creatinine is down to 1.6. maintained on TPN Objective - Vital Signs Vital signs: Vital Signs Temp 97.3 F L 08/24/23 08:00 Pulse 104 H 08/24/23 08:41 Resp 18 08/24/23 08:00 BP 169/84 08/24/23 08:00 Pulse Ox 97 08/24/23 08:26 FiO2 Intake & Output 08/23/23 08/24/23 08/24/23 18:59 06:59 18:59 Intake Total 220 1042.4 118 Output Total 8789 414 7382 Balance -1110 392.4 -882 Weight 79.5 kg Intake: Intake, IV Titration 1042.4 Amount Mvi, Adult No.4 with Vit 1042.4 K 10 ml Trace (Conc-1Ml/ Dose) 1 ml Sodium Acetate 40 meq Calcium Gluconate 1 gm Magnesium Sulfate gm 1.5 gm In Amino Acids 5 %/Dextrose 20 % 1,000 ml @ 48 mls/hr IV . [id number] [facility] Rx#:[id number] Oral 220 118 Output: Urine 3506 716 9632 Other: Voiding Method Indwelling Catheter Indwelling Catheter Indwelling Catheter # Bowel Movements 1 1 - Exam patient is sleeping but arousable. No acute distress Examination of the heart S1 and S2 Examination of the lungs bilateral breath sounds are heard Abdomen is soft nontender Examination of lower extremities shows no significant edema TUMOR REGISTRAR exam shows patient is moving all 4 extremities - Labs CBC & Chem 7: 08/22/23 08:24 08/23/23 10:23 Labs: Abnormal Lab Results - Last 24 Hours (Table) 08/23/23 08/23/23 08/23/23 Range/Units 10:23 12:10 23:58 POC Glucose (mg/dL) 121 H 126 H (70-110) mg/dL Triglycerides 245.00 H (0.00-149.00) mg/dL 08/24/23 Range/Units 06:08 POC Glucose (mg/dL) 113 H (70-110) mg/dL Triglycerides (0.00-149.00) mg/dL Assessment and Plan Assessment: 1. Acute kidney injury secondary to hemodynamic ATN. No hydronephrosis noted on CAT scan. Started on hemodialysis August 10, 2023. Last dialysis August 12, 2023. Permacath removed August 19, 2023. Renal function improving. Creatinine 1.6 Nonoliguric. 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 Heme/onc following. 2. Chronic kidney disease stage IIIb with baseline creatinine 1.3-1.5 secondary to nephrosclerosis. 3. Partial small bowel obstruction. Receiving TPN. Surgery following. 4. Metabolic acidosis secondary to acute kidney injury and IV fluids. Better. 5. Atrial tachycardia status post Cardizem drip. On metoprolol. Cardiology following. 6. Anemia. Iron deficiency noted - s/p IV iron. 7. Hyperkalemia secondary to acute kidney injury. improved. Plan: continue to monitor volume status closely. Continue with Dow catheter Continue to avoid nephrotoxins continue TPN.
[2023-08-24 11:34] LABS: Glucose,Whole Blood 113 mg/dL (70-110)
[2023-08-24 11:41] LABS: African American GFR (CKD) 46 (>60 ml/min/1.73 sqM); Anion Gap 4 mmol/L; Blood Urea Nitrogen 31 mg/dL (9-20); Calcium 8.1 mg/dL (8.4-10.2); Carbon Dioxide 24 mmol/L (22-30); Chloride 107 mmol/L (98-107); Glucose 92 mg/dL (74-99); Magnesium 1.8 mg/dL (1.6-2.3); Non-African American GFR(CKD) 40 (>60 ml/min/1.73 sqM); Phosphorus 3.4 mg/dL (2.5-4.5); Potassium 4.6 mmol/L (3.5-5.1); Sodium 135 mmol/L (137-145)
--- NOTE | 2023-08-24 13:40 | P.PN ---
Subjective Progress Note Date: 08/24/23 Progress note Date of service: 08/24/[address] Griffin. Patient seen and evaluated [id number] He recognized my name however he is still confused with the underlying cognitive function impairment chronically present. Patient able to minimally eat ground food Will check on medication to be changed to oral. Laboratory: Today creatinine 1.56 and BUN 31, EGFR improving 40 with the underlying history of chronic kidney disease stage III, blood sugar 92, POC glucose 113 with a running TPN and Intralipid and gradually weaning him from the Intralipid and the TPN his magnesium 1.8 phosphorus 3.4 and calcium 8.1. Extremities Patient awake alert able to respond however is confused and future plan for [facility] and rehab after discontinuation of his TPN. Head and neck: He had left facial drooping and eyelid also drooping on the left side only. 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 Heart regular sinus rhythm heart rate is acceptable. Abdomen is soft and positive bowel sounds, nursing staff stated that he had 2 bowel movement yesterday, not today. Extremities no edema able to move his legs however need for further rehabilitation inpatient and outpatient subsequently in the prison. Cognitive function: Still impaired however has been chronic. Patient had a history of a spinal stenosis with walking disability and need for thorough rehabilitation. Assessment: 1. History of admission with small bowel obstruction secondary to adhesion 2. Sinus tachycardia 3. Shortness of breath associated with COPD exacerbation and history of asthma chronic 4. Acute renal failure with acute kidney injury with a creatinine rise up to 6 more than 6, 5. Patient subsequently started on hemodialysis with the placement of right subclavian catheter and dialysis ended on 11 August with the progressive gradual improvement of the renal function. 6. Intra-abdominal sepsis monitored and covered with antibiotic by infectious disease Dr. Simmons 7. Severe protein calorie deficiency with a low protein L, albumin, prealbumin. 8. Currently on TPN and Intralipid. And gradual weaning off. 9. Hyperkalemia with electrolyte imbalance has been adjusted with the TPN. 10. History of earlier stage of hypoglycemia secondary to n.p.o. and prolonged starvation. Plan: Patient is gradually recovering Weaning off the TPN and Intralipid Physical therapy augmentation. Future discontinuation of antibiotic will be per infectious disease For further rehabilitation through prison [facility]. Objective - Vital Signs Vital signs: Vital Signs Temp 97.3 F L 08/24/23 08:00 Pulse 104 H 08/24/23 11:55 Resp 18 08/24/23 11:53 BP 176/73 08/24/23 11:53 Pulse Ox 99 08/24/23 11:53 FiO2 Intake & Output 08/23/23 08/24/23 08/24/23 18:59 06:59 18:59 Intake Total 220 1042.4 118 Output Total 9734 064 0628 Balance -1110 392.4 -882 Weight 79.5 kg Intake: Intake, IV Titration 1042.4 Amount Mvi, Adult No.4 with Vit 1042.4 K 10 ml Trace (Conc-1Ml/ Dose) 1 ml Sodium Acetate 40 meq Calcium Gluconate 1 gm Magnesium Sulfate gm 1.5 gm In Amino Acids 5 %/Dextrose 20 % 1,000 ml @ 48 mls/hr IV . [id number] [facility] Rx#:[id number] Oral 220 118 Output: Urine 0090 797 0110 Other: Voiding Method Indwelling Catheter Indwelling Catheter Indwelling Catheter # Bowel Movements 1 1 - Labs CBC & Chem 7: 08/22/23 08:24 08/24/23 09:53 Labs: Abnormal Lab Results - Last 24 Hours (Table) 08/23/23 08/23/23 08/24/23 Range/Units 10:23 23:58 06:08 Sodium (137-145) mmol/L BUN (9-20) mg/dL Creatinine (0.66-1.25) mg/dL POC Glucose (mg/dL) 126 H 113 H (70-110) mg/dL Calcium (8.4-10.2) mg/dL Triglycerides 245.00 H (0.00-149.00) mg/dL 08/24/23 08/24/23 Range/Units 09:53 11:27 Sodium 135 L (137-145) mmol/L BUN 31 H (9-20) mg/dL Creatinine 1.56 H (0.66-1.25) mg/dL POC Glucose (mg/dL) 113 H (70-110) mg/dL Calcium 8.1 L (8.4-10.2) mg/dL Triglycerides (0.00-149.00) mg/dL
--- NOTE | 2023-08-24 14:03 | P.PN ---
Subjective Progress Note Date: 08/24/23 CHIEF COMPLAINT: Abdominal pain HISTORY OF PRESENT ILLNESS: Patient with small bowel obstruction status post robotic assisted laparoscopic lysis of adhesions and decompressive enterostomy on 08/08/2023. Patient is lying in bed. He denies any abdominal pain. Last BM was yesterday. Oral intake is poor. He is undergoing a calorie count. Has TPN for nutrition support. Afebrile. Mildly tachycardic. PHYSICAL EXAM: VITAL SIGNS: Reviewed GENERAL: Well-developed in no acute distress. HEENT: No sclera icterus. Extraocular movements grossly intact. Moist buccal mucosa. Head is atraumatic, normocephalic. Hears conversational speech. No nasal drainage. NECK: Supple without lymphadenopathy. CHEST: Non-labored respirations and equal bilateral excursions. CARDIOVASCULAR: Palpable 2+ radial pulses. ABDOMEN: Nondistended. Nontender. No signs of peritonitis. nontender. Incision sites clean dry and intact. MUSCULOSKELETAL: No clubbing or cyanosis. NEUROLOGIC: No focal or lateralizing signs. Cranial nerves II through XII grossly intact. PSYCH: Appropriate affect. Alert and oriented to person, place and time. SKIN: Well perfused. Good skin turgor. ASSESSMENT: 1. Small bowel obstruction due to adhesion, lower pelvis left lower quadrant status post lysis of adhesions and decompressive enterostomy 2. Expected ileus due to physical inactivity, spinal stenosis and chronic back pain and acute renal failure 3. Acute renal failure 4. Sigmoid diverticulosis 5. Left lower quadrant abdominal pain 6. Internal hernia pelvis PLAN: -Continue 72-hour calorie count -Continue TPN for now until oral intake increases. -Clinically patient is having flatus and bowel movements. He is tolerating ground diet. KUB x-ray completed showing no evidence of bowel obstruction. -Due to patient's comorbidities expect longer time for recovery -Continue supportive care -Continue ground diet Physician [employer] note has been reviewed by physician. Signing provider agrees with the documented findings, assessment, and plan of care. Objective - Vital Signs Vital signs: Vital Signs Temp 97.3 F L 08/24/23 08:00 Pulse 104 H 08/24/23 11:55 Resp 18 08/24/23 11:53 BP 176/73 08/24/23 11:53 Pulse Ox 99 08/24/23 11:53 FiO2 Intake & Output 08/23/23 08/24/23 08/24/23 18:59 06:59 18:59 Intake Total 220 1042.4 118 Output Total 0038 847 4849 Balance -1110 392.4 -882 Weight 79.5 kg 79.5 kg Intake: Intake, IV Titration 1042.4 Amount Mvi, Adult No.4 with Vit 1042.4 K 10 ml Trace (Conc-1Ml/ Dose) 1 ml Sodium Acetate 40 meq Calcium Gluconate 1 gm Magnesium Sulfate gm 1.5 gm In Amino Acids 5 %/Dextrose 20 % 1,000 ml @ 48 mls/hr IV . [id number] [facility] Rx#:[id number] Oral 220 118 Output: Urine 9304 [id number] [id number] Other: Voiding Method Indwelling Catheter Indwelling Catheter Indwelling Catheter # Bowel Movements 1 1 - Labs CBC & Chem 7: 08/22/23 08:24 08/24/23 09:53 Labs: Abnormal Lab Results - Last 24 Hours (Table) 08/23/23 08/23/23 08/24/23 Range/Units 10:23 23:58 06:08 Sodium (137-145) mmol/L BUN (9-20) mg/dL Creatinine (0.66-1.25) mg/dL POC Glucose (mg/dL) 126 H 113 H (70-110) mg/dL Calcium (8.4-10.2) mg/dL Triglycerides 245.00 H (0.00-149.00) mg/dL 08/24/23 08/24/23 Range/Units 09:53 11:27 Sodium 135 L (137-145) mmol/L BUN 31 H (9-20) mg/dL Creatinine 1.56 H (0.66-1.25) mg/dL POC Glucose (mg/dL) 113 H (70-110) mg/dL Calcium 8.1 L (8.4-10.2) mg/dL Triglycerides (0.00-149.00) mg/dL
--- NOTE | 2023-08-24 14:26 | P.PN ---
Subjective Progress Note Date: 08/24/23 Principal diagnosis: Acute small bowel obstruction This is a 83-year-old male patient with a known history of coronary artery disease with previous stent placement, dementia, hypertension, hyperlipidemia, hypothyroidism, non-smoker who presented here to the emergency room on 08/01/2023 with abdominal pain. He had been followed by surgical services. He did have a nasogastric tube which had approximately 2100 cc output once put in. However the patient inadvertently pulled it out last night. Today he had developed increased abdominal discomfort, tachycardia and shortness of breath. We were consulted for possible transfer to the ICU. He is seen today on the regular [facility] floor. He is awake and alert. He denies any pain at rest. He is tender to palpation. He is tachycardic, sinus. Currently afebrile. Continue O2 saturations in the mid 90s on 3 L/min per nasal cannula. Blood pressure stable. Blood cultures reveal no growth. White count 8.5. Hemoglobin 12.6. Platelets 373. Sodium 139. Potassium 4.6. Bicarb 14. BUN 34. Creatinine 3.11. Glucose 88. Amylase 73. Lipase 49. CT scan of the abdomen today revealed bowel obstruction pattern. Small amount of free fluid. Chest x-ray reveals no acute cardiopulmonary process. A nasogastric tube has been reinserted and in good position. He is currently on Zosyn. Patient was seen and examined today on 08/05/2023, patient is doing much better today compared to the last 2 days, less abdominal pain, no nausea no vomiting, continues to have nasogastric tube in place.WBC count is 9.9 hemoglobin 11.3 basic metabolic profile is normal however his renal functioning is worse with BUN up to 69 creatinine 5.60, and that is being addressed by nephrology on the case. His acute kidney injury is felt to be related to hemodynamic ATN, no hydronephrosis on CT of the abdomen, patient does have history of chronic kidney disease stage IIIb. Patient is on Cardizem drip now for atrial tachycardia. And cardiology is following Reevaluate today on 08/06/23, patient pulled his nasogastric tube yesterday, co ntinues to have abdominal distention and abdominal pain. Apparently multiple attempts by nurses to place the nasogastric tube were unsuccessful. Surgery is to address the nasogastric tube placement and or exploratory laparotomy on this patient to relieve his bowel obstruction.WBC count today is 8.4 hemoglobin 10.4, basic metabolic profile is normal renal profile is worsening with a BUN of 85 creatinine 6.08 and his renal profile is being addressed by nephrology on the case Patient was reevaluated today on 08/07/2023, continues to have abdominal pain, continues to have small bowel obstruction, and now he is developing worsening renal disease. From the looks of it, patient may be heading towards dialysis. Patient was seen by Dr. Truong today, and I believe he is recommending exploratory laparotomy after he is seen by Dr. Goodman tomorrow. Continues to have decent urine output, 600 cc in the last 8 hours. Could not have a nasogastric tube placed back, patient is getting intermittently confused and he pulled out his nasogastric tube 2 days ago.Basic metabolic profile today was noted however his BUN is 89 creatinine up to 6.38 The patient is seen today August 22, 2023 in follow-up on the regular medical floor. He is currently awake and alert in no acute distress. He is maintaining O2 saturations in the 90s on 2 L/min per nasal cannula. His surgery was back on August 08, 2023. He remains on TPN for nutritional support. He is having bowel movements. He is continued on antibiotics in the form of meropenem and Eraxis. Remains on bronchodilators. Remains on heparin for DVT prophylaxis. White count 9.5. Hemoglobin 7.8. Sodium 135. Potassium 4.8. Bicarb 18. BUN 39. Creatinine 1.76. AST 53. ALT 34. Patient was reevaluated today on 08/23/2023, patient seems to be comfortable, not in pulmonary distress, he is on 2 L nasal cannula with O2 sats at 98%, however the patient seems to be a bit more confused, and keeps pulling on his boots, for no specific purpose. Labs today showed relatively normal electrolytes, BUN is 32 creatinine is down to 1.62 patient has no more issues related to his bowel obstruction, his medications were all reviewed, remains being followed by multiple consultants including infectious disease, remains on Eraxis for almost the last 2 weeks. Patient is also receiving Merrem, for almost 2 weeks. Patient is also receiving TPN. Pulmonary kraft we have a mostly on bronchodilators. Reevaluate 08/24/2023, patient is doing well, he definitely denies any shortness of breath cough or wheezing, denies any abdominal pain nausea or vomiting, patient seems to be very comfortable, but intermittently confused. Patient remains on TPN, and the plan is to continue TPN until the patient caloric oral count improves. Patient did present initially with small bowel obstruction, and he had adhesions, underwent lysis of adhesions and decompressive enterostomy and done quite well since then. In addition the patient developed acute renal f ailure. Patient has been steadily improving last creatinine was 1.56 with a BUN of 31 patient did have a temporary hemodialysis. His permacath was removed on August 18 and renal functioning has been steadily improving creatinine is now 1.6 Objective - Vital Signs Vital signs: Vital Signs Temp 97.3 F L 08/24/23 08:00 Pulse 104 H 08/24/23 11:55 Resp 18 08/24/23 11:53 BP 176/73 08/24/23 11:53 Pulse Ox 99 08/24/23 11:53 FiO2 Intake & Output 08/23/23 08/24/23 08/24/23 18:59 06:59 18:59 Intake Total 220 1042.4 118 Output Total 0578 776 1600 Balance -1110 392.4 -882 Weight 79.5 kg 79.5 kg Intake: Intake, IV Titration 1042.4 Amount Mvi, Adult No.4 with Vit 1042.4 K 10 ml Trace (Conc-1Ml/ Dose) 1 ml Sodium Acetate 40 meq Calcium Gluconate 1 gm Magnesium Sulfate gm 1.5 gm In Amino Acids 5 %/Dextrose 20 % 1,000 ml @ 48 mls/hr IV . [id number] [facility] Rx#:[id number] Oral 220 118 Output: Urine 1421 587 6624 Other: Voiding Method Indwelling Catheter Indwelling Catheter Indwelling Catheter # Bowel Movements 1 1 - Exam GENERAL EXAM: Revealed 83-year-old white male in no distress, remains intermittently confused. HEAD: Normocephalic. Atraumatic EYES: Normal reaction of pupils, equal size. NOSE: Clear with pink turbinates. THROAT: No erythema or exudates. NECK: No masses, no JVD. CHEST: No chest wall deformity. LUNGS: Clear bilaterally no rhonchi no wheezes CVS: S1 and S2 normal with no audible murmur, regular rhythm. ABDOMEN: Soft nontender no megaly no rebound no guarding. Good bowel sounds. SPINE: No scoliosis or deformity SKIN: No rashes CENTRAL NERVOUS SYSTEM: Confused, follows simple instructions. EXTREMITIES: No clubbing edema or cyanosis - Labs CBC & Chem 7: 08/22/23 08:24 08/24/23 09:53 Labs: Abnormal Lab Results - Last 24 Hours (Table) 08/23/23 08/23/23 08/24/23 Range/Units 10:23 23:58 06:08 Sodium (137-145) mmol/L BUN (9-20) mg/dL Creatinine (0.66-1.25) mg/dL POC Glucose (mg/dL) 126 H 113 H (70-110) mg/dL Calcium (8.4-10.2) mg/dL Triglycerides 245.00 H (0.00-149.00) mg/dL 08/24/23 08/24/23 Range/Units 09:53 11:27 Sodium 135 L (137-145) mmol/L BUN 31 H (9-20) mg/dL Creatinine 1.56 H (0.66-1.25) mg/dL POC Glucose (mg/dL) 113 H (70-110) mg/dL Calcium 8.1 L (8.4-10.2) mg/dL Triglycerides (0.00-149.00) mg/dL Assessment and Plan Assessment: Impression Abdominal pain in a patient found to have a bowel obstruction and small amount of free fluid status post lysis of adhesions and decompressive enterostomy on 08/08/2023 Acute hypoxemic respiratory failure secondary to above, history of COPD/asthma is a lifelong non-smoker recovered and on room air Abdominal sepsis, patient is still receiving multiple antibiotics and antifungal therapy as per ID on the case History of coronary disease with previous stent placement Hypertension Hyperlipidemia Hypothyroidism Dementia Lifelong non-smoker history of mild intermittent asthma Recommendation: Continue present supportive care measures ID to address possibly stopping antibiotics and antifungal therapy Continue to monitor caloric count/oral caloric, Continue TPN for now until caloric count improves Should start considering placement I believe the plan is to eventually send tomorrow DCF Will continue for to follow for now Time with Patient: Less than 30
[2023-08-24] MEDS: METOPROLOL TARTRATE 25 MG TAB PO SCH (14:57)
[2023-08-24] MEDS: PANTOPRAZOLE 40 MG TABLET PO SCH (14:57)
[2023-08-24 18:34] LABS: Glucose,Whole Blood 121 mg/dL (70-110)
[2023-08-25 00:12] LABS: Glucose,Whole Blood 118 mg/dL (70-110)
[2023-08-25 06:07] LABS: Glucose,Whole Blood 107 mg/dL (70-110)
--- NOTE | 2023-08-25 09:04 | P.PN ---
Subjective Progress Note Date: 08/24/23 Principal diagnosis: Reason for follow-up is fever likely abdominal source Patient is a 83-year-old male with a past medical history significant for coronary disease COPD dementia hypertension hyperlipidemia reflux presenting to the hospital for evaluation of abdominal pain bloating has been diagnosed with the distal small bowel obstruction developing a fever concerning for possible abdominal sepsis prompting this consultation.Patient is status post robotic assisted laparoscopic lysis of adhesion extensive and decompressive enterostomy that was completed on 08/08/2023 On today's evaluation that is 08/24/2023, Patient is afebrile patient is currently on room air, the patient is to be slightly more awake today and denies having any shortness of breath, the patient denies any chest pain or cough, the patient denies any nausea vomiting or any abdominal pain. Patient did have a creatinine 1.56 no CBC was done today Objective - Vital Signs Vital signs: Vital Signs Temp 97.8 F 08/24/23 17:28 Pulse 93 08/24/23 17:28 Resp 16 08/24/23 17:28 BP 154/76 08/24/23 17:28 Pulse Ox 95 08/24/23 17:28 FiO2 Intake & Output 08/23/23 08/24/23 08/24/23 18:59 06:59 18:59 Intake Total 220 1042.4 118 Output Total 1731 560 4749 Balance -1110 392.4 -882 Weight 79.5 kg 79.5 kg Intake: Intake, IV Titration 1042.4 Amount Mvi, Adult No.4 with Vit 1042.4 K 10 ml Trace (Conc-1Ml/ Dose) 1 ml Sodium Acetate 40 meq Calcium Gluconate 1 gm Magnesium Sulfate gm 1.5 gm In Amino Acids 5 %/Dextrose 20 % 1,000 ml @ 48 mls/hr IV . [id number] [facility] Rx#:[id number] Oral 220 118 Output: Urine 7818 [id number] [id number] Other: Voiding Method Indwelling Catheter Indwelling Catheter Indwelling Catheter # Bowel Movements 1 1 - Exam GENERAL DESCRIPTION: An elderly male up in the chair in no distress RESPIRATORY SYSTEM: Unlabored breathing , decreased breath sounds at bases HEART: S1 S2 regular rate and rhythm , ABDOMEN: Soft , no tenderness EXTREMITIES: No edema feet - Labs CBC & Chem 7: 08/22/23 08:24 08/24/23 09:53 Labs: Abnormal Lab Results - Last 24 Hours (Table) 08/23/23 08/24/23 08/24/23 Range/Units 23:58 06:08 09:53 Sodium 135 L (137-145) mmol/L BUN 31 H (9-20) mg/dL Creatinine 1.56 H (0.66-1.25) mg/dL POC Glucose (mg/dL) 126 H 113 H (70-110) mg/dL Calcium 8.1 L (8.4-10.2) mg/dL 08/24/23 Range/Units 11:27 Sodium (137-145) mmol/L BUN (9-20) mg/dL Creatinine (0.66-1.25) mg/dL POC Glucose (mg/dL) 113 H (70-110) mg/dL Calcium (8.4-10.2) mg/dL Assessment and Plan (1) Fever Current Visit: Yes Status: Acute Code(s): R50.9 - FEVER, UNSPECIFIED SNOMED Code(s): 025454143 (2) Leukocytosis Current Visit: Yes Status: Acute Code(s): D72.829 - ELEVATED WHITE BLOOD CELL COUNT, UNSPECIFIED SNOMED Code(s): 230692231 (3) Small bowel obstruction Current Visit: Yes Status: Acute Code(s): K56.609 - UNSP INTESTNL OBST, UNSP TO PARTIAL VERSUS COMPLETE OBST SNOMED Code(s): 139151286 (4) Peritonitis Current Visit: Yes Status: Acute Code(s): K65.9 - PERITONITIS, UNSPECIFIED SNOMED Code(s): 47743091 Plan: 1patient with low-grade fever elevated white count and this patient presented to hospital with abdominal pain and bloating and has been diagnosed with the small bowel obstruction likely etiology for his low-grade fever and elevated white count, the patient is status post laparoscopic lysis of adhesion and enterostomy abdominal cultures obtained which are currently growing Enterococcus drug-resistant Enterobacter and Marybeth 2-patient is afebrile, patient white count has normalized as of 08/22/2023 3-patient currently being treated with meropenem and Eraxis and plan will be to finish a total of 2-week course of therapy Dictation was produced using [employer] software. please excuse any grammatical, word or spelling errors. Time with Patient: Less than 30
[2023-08-25 11:31] LABS: Glucose,Whole Blood 96 mg/dL (70-110)
[2023-08-25 11:34] LABS: Basophils # (A) 0.1 k/uL (0-0.2); Basophils % (A) 1 %; Eosinophils # (A) 0.9 k/uL (0-0.7); Eosinophils % (A) 11 %; HCT 25.2 % (39.0-53.0); Lymphocytes # (A) 1.2 k/uL (1.0-4.8); Lymphocytes % (A) 15 %; MCH 28.7 pg (25.0-35.0); MCHC 31.9 g/dL (31.0-37.0); MCV 89.8 fL (80.0-100.0); Mean Platelet Volume 7.1; Monocytes # (A) 0.7 k/uL (0-1.0); Monocytes % (A) 8 %; Neutrophils # (A) 5.4 k/uL (1.3-7.7); Neutrophils % (A) 64 %; Platelet Count 840 k/uL (150-450); RBC 2.81 m/uL (4.30-5.90); RDW 15.5 % (11.5-15.5); WBC 8.5 k/uL (3.8-10.6)
--- NOTE | 2023-08-25 11:34 | P.PN ---
Subjective patient is seen for follow-up for acute kidney injury. status post temporary hemodialysis. Renal function has improved. Patient is comfortable. He denies any significant complaints. serum creatinine is down to 1.5. maintained on TPN. Calorie count in progress Objective - Vital Signs Vital signs: Vital Signs Temp 97.7 F 08/25/23 08:00 Pulse 95 08/25/23 08:13 Resp 20 08/25/23 08:00 BP 169/81 08/25/23 08:00 Pulse Ox 94 L 08/25/23 08:00 FiO2 Intake & Output 08/24/23 08/25/23 08/25/23 18:59 06:59 18:59 Intake Total 1115.6 120 Output Total 1000 2950 575 Balance 115.6 -2950 -455 Weight 79.5 kg 74 kg Intake: Intake, IV Titration 997.6 Amount Mvi, Adult No.4 with Vit 997.6 K 10 ml Trace (Conc-1Ml/ Dose) 1 ml Sodium Acetate 40 meq Calcium Gluconate 1 gm Magnesium Sulfate gm 1.5 gm In Amino Acids 5 %/Dextrose 20 % 1,000 ml @ 48 mls/hr IV . [id number] [facility] Rx#:[id number] Oral 118 120 Output: Urine 1000 2950 575 Other: Voiding Method Indwelling Catheter Indwelling Catheter Indwelling Catheter - Exam patient is sleeping but arousable. No acute distress Examination of the heart S1 and S2 Examination of the lungs bilateral breath sounds are heard Abdomen is soft nontender Examination of lower extremities shows no significant edema [employer] exam shows patient is moving all 4 extremities - Labs CBC & Chem 7: 08/22/23 08:24 08/24/23 09:53 Labs: Abnormal Lab Results - Last 24 Hours (Table) 08/24/23 08/24/23 08/24/23 Range/Units 09:53 11:27 18:32 Sodium 135 L (137-145) mmol/L BUN 31 H (9-20) mg/dL Creatinine 1.56 H (0.66-1.25) mg/dL POC Glucose (mg/dL) 113 H 121 H (70-110) mg/dL Calcium 8.1 L (8.4-10.2) mg/dL 08/25/23 Range/Units 00:08 Sodium (137-145) mmol/L BUN (9-20) mg/dL Creatinine (0.66-1.25) mg/dL POC Glucose (mg/dL) 118 H (70-110) mg/dL Calcium (8.4-10.2) mg/dL Assessment and Plan Assessment: 1. Acute kidney injury secondary to hemodynamic ATN. No hydronephrosis noted on CAT scan. Started on hemodialysis August 10, 2023. Last dialysis August 12, 2023. Permacath removed August 19, 2023. Renal function improving. Creatinine 1.5 Nonoliguric. 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 Heme/onc following. 2. Chronic kidney disease stage IIIb with baseline creatinine 1.3-1.5 secondary to nephrosclerosis. 3. Partial small bowel obstruction. Receiving TPN. Surgery following. 4. Metabolic acidosis secondary to acute kidney injury and IV fluids. Better. 5. Atrial tachycardia status post Cardizem drip. On metoprolol. Cardiology following. 6. Anemia. Iron deficiency noted - s/p IV iron. 7. Hyperkalemia secondary to acute kidney injury. improved. Plan: continue to monitor volume status closely. Continue with Dow catheter Continue to avoid nephrotoxins continue TPN.
[2023-08-25 12:13] LABS: ALT 25 U/L (4-49); AST 39 U/L (17-59); African American GFR (CKD) 58 (>60 ml/min/1.73 sqM); Albumin 2.3 g/dL (3.5-5.0); Alkaline Phosphatase 252 U/L (38-126); Anion Gap 4 mmol/L; Blood Urea Nitrogen 27 mg/dL (9-20); Carbon Dioxide 25 mmol/L (22-30); Chloride 108 mmol/L (98-107); Glucose 95 mg/dL (74-99); Magnesium 1.8 mg/dL (1.6-2.3); Non-African American GFR(CKD) 50 (>60 ml/min/1.73 sqM); Phosphorus 3.2 mg/dL (2.5-4.5); Sodium 137 mmol/L (137-145); Total Bilirubin 0.2 mg/dL (0.2-1.3); Total Protein 5.5 g/dL (6.3-8.2)
--- NOTE | 2023-08-25 14:36 | P.PN ---
Subjective Progress Note Date: 08/25/23 Principal diagnosis: Acute small bowel obstruction This is a 83-year-old male patient with a known history of coronary artery disease with previous stent placement, dementia, hypertension, hyperlipidemia, hypothyroidism, non-smoker who presented here to the emergency room on 08/01/2023 with abdominal pain. He had been followed by surgical services. He did have a nasogastric tube which had approximately 2100 cc output once put in. However the patient inadvertently pulled it out last night. Today he had developed increased abdominal discomfort, tachycardia and shortness of breath. We were consulted for possible transfer to the ICU. He is seen today on the regular [facility] floor. He is awake and alert. He denies any pain at rest. He is tender to palpation. He is tachycardic, sinus. Currently afebrile. Continue O2 saturations in the mid 90s on 3 L/min per nasal cannula. Blood pressure stable. Blood cultures reveal no growth. White count 8.5. Hemoglobin 12.6. Platelets 373. Sodium 139. Potassium 4.6. Bicarb 14. BUN 34. Creatinine 3.11. Glucose 88. Amylase 73. Lipase 49. CT scan of the abdomen today revealed bowel obstruction pattern. Small amount of free fluid. Chest x-ray reveals no acute cardiopulmonary process. A nasogastric tube has been reinserted and in good position. He is currently on Zosyn. Patient was seen and examined today on 08/05/2023, patient is doing much better today compared to the last 2 days, less abdominal pain, no nausea no vomiting, continues to have nasogastric tube in place.WBC count is 9.9 hemoglobin 11.3 basic metabolic profile is normal however his renal functioning is worse with BUN up to 69 creatinine 5.60, and that is being addressed by nephrology on the case. His acute kidney injury is felt to be related to hemodynamic ATN, no hydronephrosis on CT of the abdomen, patient does have history of chronic kidney disease stage IIIb. Patient is on Cardizem drip now for atrial tachycardia. And cardiology is following Reevaluate today on 08/06/23, patient pulled his nasogastric tube yesterday, co ntinues to have abdominal distention and abdominal pain. Apparently multiple attempts by nurses to place the nasogastric tube were unsuccessful. Surgery is to address the nasogastric tube placement and or exploratory laparotomy on this patient to relieve his bowel obstruction.WBC count today is 8.4 hemoglobin 10.4, basic metabolic profile is normal renal profile is worsening with a BUN of 85 creatinine 6.08 and his renal profile is being addressed by nephrology on the case Patient was reevaluated today on 08/07/2023, continues to have abdominal pain, continues to have small bowel obstruction, and now he is developing worsening renal disease. From the looks of it, patient may be heading towards dialysis. Patient was seen by Dr. Truong today, and I believe he is recommending exploratory laparotomy after he is seen by Dr. Goodman tomorrow. Continues to have decent urine output, 600 cc in the last 8 hours. Could not have a nasogastric tube placed back, patient is getting intermittently confused and he pulled out his nasogastric tube 2 days ago.Basic metabolic profile today was noted however his BUN is 89 creatinine up to 6.38 The patient is seen today August 22, 2023 in follow-up on the regular medical floor. He is currently awake and alert in no acute distress. He is maintaining O2 saturations in the 90s on 2 L/min per nasal cannula. His surgery was back on August 08, 2023. He remains on TPN for nutritional support. He is having bowel movements. He is continued on antibiotics in the form of meropenem and Eraxis. Remains on bronchodilators. Remains on heparin for DVT prophylaxis. White count 9.5. Hemoglobin 7.8. Sodium 135. Potassium 4.8. Bicarb 18. BUN 39. Creatinine 1.76. AST 53. ALT 34. Patient was reevaluated today on 08/23/2023, patient seems to be comfortable, not in pulmonary distress, he is on 2 L nasal cannula with O2 sats at 98%, however the patient seems to be a bit more confused, and keeps pulling on his boots, for no specific purpose. Labs today showed relatively normal electrolytes, BUN is 32 creatinine is down to 1.62 patient has no more issues related to his bowel obstruction, his medications were all reviewed, remains being followed by multiple consultants including infectious disease, remains on Eraxis for almost the last 2 weeks. Patient is also receiving Merrem, for almost 2 weeks. Patient is also receiving TPN. Pulmonary kraft we have a mostly on bronchodilators. Reevaluate 08/24/2023, patient is doing well, he definitely denies any shortness of breath cough or wheezing, denies any abdominal pain nausea or vomiting, patient seems to be very comfortable, but intermittently confused. Patient remains on TPN, and the plan is to continue TPN until the patient caloric oral count improves. Patient did present initially with small bowel obstruction, and he had adhesions, underwent lysis of adhesions and decompressive enterostomy and done quite well since then. In addition the patient developed acute renal f ailure. Patient has been steadily improving last creatinine was 1.56 with a BUN of 31 patient did have a temporary hemodialysis. His permacath was removed on August 18 and renal functioning has been steadily improving creatinine is now 1.6 Reevaluate today on 08/25/2023, patient is basically about the same, still having difficulty with maintaining adequate caloric count. Remains on TPN, today is his 14th day of antibiotics, and hopefully this will be discontinued by infectious disease on the case. Nephrology kraft patient creatinine is coming down steadily, and steadily improving, he had a temporary hemodialysis but has not required any dialysis recently.WBC count is 8.5 hemoglobin is 8 basic metabolic profile is normal creatinine today is 1.29 Objective - Vital Signs Vital signs: Vital Signs Temp 97.9 F 08/25/23 11:50 Pulse 86 08/25/23 12:01 Resp 16 08/25/23 11:50 BP 169/83 08/25/23 11:50 Pulse Ox 97 08/25/23 11:50 FiO2 Intake & Output 08/24/23 08/25/23 08/25/23 18:59 06:59 18:59 Intake Total 1115.6 120 Output Total 1000 2950 975 Balance 115.6 -2950 -855 Weight 79.5 kg 74 kg 74 kg Intake: Intake, IV Titration 997.6 Amount Mvi, Adult No.4 with Vit 997.6 K 10 ml Trace (Conc-1Ml/ Dose) 1 ml Sodium Acetate 40 meq Calcium Gluconate 1 gm Magnesium Sulfate gm 1.5 gm In Amino Acids 5 %/Dextrose 20 % 1,000 ml @ 48 mls/hr IV . [id number] [facility] Rx#:[id number] Oral 118 120 Output: Urine 1000 2950 975 Other: Voiding Method Indwelling Catheter Indwelling Catheter Indwelling Catheter - Exam GENERAL EXAM: Revealed 83-year-old white male in no distress, confused HEAD: Normocephalic. Atraumatic EYES: Normal reaction of pupils, equal size. NOSE: Clear with pink turbinates. THROAT: No erythema or exudates. NECK: No masses, no JVD. CHEST: No chest wall deformity. LUNGS: Clear bilaterally no rhonchi no wheezes CVS: S1 and S2 normal with no audible murmur, regular rhythm. ABDOMEN: Soft nontender no megaly no rebound no guarding. Good bowel sounds. SPINE: No scoliosis or deformity SKIN: No rashes CENTRAL NERVOUS SYSTEM: Confused, follows simple instructions. EXTREMITIES: No clubbing edema or cyanosis - Labs CBC & Chem 7: 08/25/23 10:47 08/25/23 10:47 Labs: Abnormal Lab Results - Last 24 Hours (Table) 08/24/23 08/25/23 08/25/23 Range/Units 18:32 00:08 10:47 RBC (4.30-5.90) m/uL Hgb (13.0-17.5) gm/dL Hct (39.0-53.0) % Plt Count (150-450) k/uL Eosinophils # (0-0.7) k/uL Chloride 108 H (98-107) mmol/L BUN 27 H (9-20) mg/dL Creatinine 1.29 H (0.66-1.25) mg/dL POC Glucose (mg/dL) 121 H 118 H (70-110) mg/dL Calcium 8.0 L (8.4-10.2) mg/dL Alkaline Phosphatase 252 H (38-126) U/L Total Protein 5.5 L (6.3-8.2) g/dL Albumin 2.3 L (3.5-5.0) g/dL 08/25/23 Range/Units 10:47 RBC 2.81 L (4.30-5.90) m/uL Hgb 8.0 L (13.0-17.5) gm/dL Hct 25.2 L (39.0-53.0) % Plt Count 840 H (150-450) k/uL Eosinophils # 0.9 H (0-0.7) k/uL Chloride (98-107) mmol/L BUN (9-20) mg/dL Creatinine (0.66-1.25) mg/dL POC Glucose (mg/dL) (70-110) mg/dL Calcium (8.4-10.2) mg/dL Alkaline Phosphatase (38-126) U/L Total Protein (6.3-8.2) g/dL Albumin (3.5-5.0) g/dL Assessment and Plan Assessment: Impression Abdominal pain in a patient found to have a bowel obstruction and small amount of free fluid status post lysis of adhesions and decompressive enterostomy on Acute hypoxemic respiratory failure secondary to above, history of COPD/asthma is a lifelong non-smoker recovered and on room air Abdominal sepsis, patient is still receiving multiple antibiotics and antifungal therapy as per ID on the case History of coronary disease with previous stent placement Hypertension Hyperlipidemia Hypothyroidism Dementia Lifelong non-smoker history of mild intermittent asthma Recommendation: Continue present supportive care measures Infectious disease will likely discontinue his antibiotics today is the 18th day of antibiotics Continue to monitor caloric count/oral caloric, Continue TPN for now until caloric count improves Will definitely need ECF placement Will continue for to follow for now Time with Patient: Less than 30
--- NOTE | 2023-08-25 14:36 | P.PN ---
Subjective Progress Note Date: 08/25/23 Progress note Date of service 08/25/[address] Griffin. Patient seen evaluated at bedside Patient is in deep sleep with him purposeless movement of his arm. Will discontinue the Ativan IV. On exam: Temperature 97.9 F oral, heart rate 86 with the increase his beta-radha to metoprolol 25 mg to 50 mg started today after changing from the IV and may take 1 day monitor to see the much improvement in his heart rate is respiratory rate 16 nonlabored. His blood pressure 169/83 with the mean blood pressure 111 and oxygen saturation 97% on room air. Laboratory: White count 8.5, hemoglobin 8, hematocrit 25.2 and platelet count 840, MCV 89.8. Chemistry: Sodium 137, potassium is 4, chloride 108, carbon dioxide 25, anion gap 4, BUN 27 and creatinine 1.29 EGFR for non- 50 glucose 95, POC glucose 96. Calcium 8 phosphorus 3.2, magnesium 1.8 and total bilirubin 0.2, AST 39, ALT 25,, alkaline phosphatase 252 with the improvement gradually, protein is 5.5 and albumin is 2.3. 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 Neck was supple no JVD no thyromegaly no lymphadenopathy trachea midline. Chest: Clear to auscultation no wheezes no rhonchi's with a history of asthma and COPD Heart: Regular sinus rhythm and heart rate is improving with the increase the beta-blockers. Metoprolol Abdomen: Positive bowel sounds softer and and resolution of the tympanitic note on percussion gradually. Extremities thrombotic stocking and no peripheral edema at this time. Neurologically: He had unpurposeful movement while his sleep with his upper and lower extremities and tried to pull out the Dow catheter. Assessment: 1. Patient clinically improving 2. Underlying complicated course of illness and disease started with small bowel obstruction 3. Sinus tachycardia 4. Shortness of breath with the acute respiratory failure 5 Acute kidney injury with elevated creatinine, seen by nephrology and underwent dialysis after insertion of subclavian dialysis catheter on the right side. 6. Last dialysis was on 11 August, subsequently patient gradually improving his renal function and currently GFR improved to 50 with a creatinine 1.29 7. Severe prolonged nutritional deficiency with protein calorie deficiency started on TPN and Intralipid by Dr. Pinzon surgical team with the nutritional support. 8. Alkaline phosphatase abnormalities which has currently resolution 9. In early stages history of hypoglycemia and that is corrected with the nutritional support and TPN. #10 status post robotic laparoscopic surgery for lysis of adhesion of the small bowel 11. Anasarca probably 6 secondary to severe hypoalbuminemia with the prealbumin was severely low, give a picture of fluid in the lung with effusion and congestive heart failure. However patient was not in congestive heart failure. Neuro #12 intra-abdominal sepsis, patient on antibiotic and monitored by Dr. Simmons infectious disease. Plan: 1. Weaning off the TPN and Intralipid 2. Establish regular bowel movement 3. Establish eating process 4. Rehabilitation 5. Clearance from several java consultant for discharge to long-term probably tomorrow [place] for further rehabilitation and continue nutritional support. Objective - Vital Signs Vital signs: Vital Signs Temp 97.9 F 08/25/23 11:50 Pulse 86 08/25/23 12:01 Resp 16 08/25/23 11:50 BP 169/83 08/25/23 11:50 Pulse Ox 97 08/25/23 11:50 FiO2 Intake & Output 08/24/23 08/25/23 08/25/23 18:59 06:59 18:59 Intake Total 1115.6 120 Output Total 1000 2950 975 Balance 115.6 -2950 -855 Weight 79.5 kg 74 kg 74 kg Intake: Intake, IV Titration 997.6 Amount Mvi, Adult No.4 with Vit 997.6 K 10 ml Trace (Conc-1Ml/ Dose) 1 ml Sodium Acetate 40 meq Calcium Gluconate 1 gm Magnesium Sulfate gm 1.5 gm In Amino Acids 5 %/Dextrose 20 % 1,000 ml @ 48 mls/hr IV . [id number] [facility] Rx#:[id number] Oral 118 120 Output: Urine 1000 2950 975 Other: Voiding Method Indwelling Catheter Indwelling Catheter Indwelling Catheter - Labs CBC & Chem 7: 08/25/23 10:47 08/25/23 10:47 Labs: Abnormal Lab Results - Last 24 Hours (Table) 08/24/23 08/25/23 08/25/23 Range/Units 18:32 00:08 10:47 RBC (4.30-5.90) m/uL Hgb (13.0-17.5) gm/dL Hct (39.0-53.0) % Plt Count (150-450) k/uL Eosinophils # (0-0.7) k/uL Chloride 108 H (98-107) mmol/L BUN 27 H (9-20) mg/dL Creatinine 1.29 H (0.66-1.25) mg/dL POC Glucose (mg/dL) 121 H 118 H (70-110) mg/dL Calcium 8.0 L (8.4-10.2) mg/dL Alkaline Phosphatase 252 H (38-126) U/L Total Protein 5.5 L (6.3-8.2) g/dL Albumin 2.3 L (3.5-5.0) g/dL 08/25/23 Range/Units 10:47 RBC 2.81 L (4.30-5.90) m/uL Hgb 8.0 L (13.0-17.5) gm/dL Hct 25.2 L (39.0-53.0) % Plt Count 840 H (150-450) k/uL Eosinophils # 0.9 H (0-0.7) k/uL Chloride (98-107) mmol/L BUN (9-20) mg/dL Creatinine (0.66-1.25) mg/dL POC Glucose (mg/dL) (70-110) mg/dL Calcium (8.4-10.2) mg/dL Alkaline Phosphatase (38-126) U/L Total Protein (6.3-8.2) g/dL Albumin (3.5-5.0) g/dL
--- NOTE | 2023-08-25 15:06 | P.PN ---
Subjective Progress Note Date: 08/25/23 Principal diagnosis: Reason for follow-up is fever likely abdominal source Patient is a 83-year-old male with a past medical history significant for coronary disease COPD dementia hypertension hyperlipidemia reflux presenting to the hospital for evaluation of abdominal pain bloating has been diagnosed with the distal small bowel obstruction developing a fever concerning for possible abdominal sepsis prompting this consultation.Patient is status post robotic assisted laparoscopic lysis of adhesion extensive and decompressive enterostomy that was completed on 08/08/2023 On today's evaluation that is 08/25/2023, patient has been afebrile, patient is breathing comfortably and is currently on room air, patient denies having any significant cough no chest pain shortness of breath, abdominal pain has decreased intensity no vomiting or diarrhea reported by the nursing staff. Patient white count is 8.5, creatinine is 1.29 Objective - Vital Signs Vital signs: Vital Signs Temp 97.9 F 08/25/23 11:50 Pulse 86 08/25/23 12:01 Resp 16 08/25/23 11:50 BP 169/83 08/25/23 11:50 Pulse Ox 97 08/25/23 11:50 FiO2 Intake & Output 08/24/23 08/25/23 08/25/23 18:59 06:59 18:59 Intake Total 1115.6 120 Output Total 1000 2950 975 Balance 115.6 -2950 -855 Weight 79.5 kg 74 kg 74 kg Intake: Intake, IV Titration 997.6 Amount Mvi, Adult No.4 with Vit 997.6 K 10 ml Trace (Conc-1Ml/ Dose) 1 ml Sodium Acetate 40 meq Calcium Gluconate 1 gm Magnesium Sulfate gm 1.5 gm In Amino Acids 5 %/Dextrose 20 % 1,000 ml @ 48 mls/hr IV . [id number] [facility] Rx#:[id number] Oral 118 120 Output: Urine 1000 2950 975 Other: Voiding Method Indwelling Catheter Indwelling Catheter Indwelling Catheter - Exam GENERAL DESCRIPTION: An elderly male up in the chair in no distress RESPIRATORY SYSTEM: Unlabored breathing , decreased breath sounds at bases HEART: S1 S2 regular rate and rhythm , ABDOMEN: Soft , no tenderness EXTREMITIES: No edema feet - Labs CBC & Chem 7: 08/25/23 10:47 08/25/23 10:47 Labs: Abnormal Lab Results - Last 24 Hours (Table) 08/24/23 08/25/23 08/25/23 Range/Units 18:32 00:08 10:47 RBC (4.30-5.90) m/uL Hgb (13.0-17.5) gm/dL Hct (39.0-53.0) % Plt Count (150-450) k/uL Eosinophils # (0-0.7) k/uL Chloride 108 H (98-107) mmol/L BUN 27 H (9-20) mg/dL Creatinine 1.29 H (0.66-1.25) mg/dL POC Glucose (mg/dL) 121 H 118 H (70-110) mg/dL Calcium 8.0 L (8.4-10.2) mg/dL Alkaline Phosphatase 252 H (38-126) U/L Total Protein 5.5 L (6.3-8.2) g/dL Albumin 2.3 L (3.5-5.0) g/dL 08/25/23 Range/Units 10:47 RBC 2.81 L (4.30-5.90) m/uL Hgb 8.0 L (13.0-17.5) gm/dL Hct 25.2 L (39.0-53.0) % Plt Count 840 H (150-450) k/uL Eosinophils # 0.9 H (0-0.7) k/uL Chloride (98-107) mmol/L BUN (9-20) mg/dL Creatinine (0.66-1.25) mg/dL POC Glucose (mg/dL) (70-110) mg/dL Calcium (8.4-10.2) mg/dL Alkaline Phosphatase (38-126) U/L Total Protein (6.3-8.2) g/dL Albumin (3.5-5.0) g/dL Assessment and Plan (1) Fever Current Visit: Yes Status: Acute Code(s): R50.9 - FEVER, UNSPECIFIED SNOMED Code(s): 122656455 (2) Leukocytosis Current Visit: Yes Status: Acute Code(s): D72.829 - ELEVATED WHITE BLOOD CELL COUNT, UNSPECIFIED SNOMED Code(s): 184549793 (3) Small bowel obstruction Current Visit: Yes Status: Acute Code(s): K56.609 - UNSP INTESTNL OBST, UNSP TO PARTIAL VERSUS COMPLETE OBST SNOMED Code(s): 954351319 (4) Peritonitis Current Visit: Yes Status: Acute Code(s): K65.9 - PERITONITIS, UNSPECIFIED SNOMED Code(s): 08101443 Plan: 1patient with low-grade fever elevated white count and this patient presented to hospital with abdominal pain and bloating and has been diagnosed with the small bowel obstruction likely etiology for his low-grade fever and elevated white count, the patient is status post laparoscopic lysis of adhesion and enterostomy abdominal cultures obtained which are currently growing Enterococcus drug-resistant Enterobacter and Marybeth 2-patient is afebrile, patient white count has been normal 3-patient to continue with meropenem and Eraxis to finish a total of 2-week course of therapy and monitor clinical course closely Dictation was produced using [employer] dictation software. please excuse any grammatical, word or spelling errors. Time with Patient: Less than 30
--- NOTE | 2023-08-25 15:28 | P.PN ---
Subjective Progress Note Date: 08/25/23 CHIEF COMPLAINT: Abdominal pain HISTORY OF PRESENT ILLNESS: Patient with small bowel obstruction status post robotic assisted laparoscopic lysis of adhesions and decompressive enterostomy on 08/08/2023. Patient is lying in bed. No new complaints. Patient undergoing calorie count. Oral intake remains poor PHYSICAL EXAM: VITAL SIGNS: Reviewed GENERAL: Well-developed in no acute distress. HEENT: No sclera icterus. Extraocular movements grossly intact. Moist buccal mucosa. Head is atraumatic, normocephalic. Hears conversational speech. No nasal drainage. NECK: Supple without lymphadenopathy. CHEST: Non-labored respirations and equal bilateral excursions. CARDIOVASCULAR: Palpable 2+ radial pulses. ABDOMEN: Nondistended. Nontender. No signs of peritonitis. nontender. Incision sites clean dry and intact. MUSCULOSKELETAL: No clubbing or cyanosis. NEUROLOGIC: No focal or lateralizing signs. Cranial nerves II through XII grossly intact. PSYCH: Appropriate affect. Alert and oriented to person, place and time. SKIN: Well perfused. Good skin turgor. ASSESSMENT: 1. Small bowel obstruction due to adhesion, lower pelvis left lower quadrant status post lysis of adhesions and decompressive enterostomy 2. Expected ileus due to physical inactivity, spinal stenosis and chronic back pain and acute renal failure 3. Acute renal failure 4. Sigmoid diverticulosis 5. Left lower quadrant abdominal pain 6. Internal hernia pelvis PLAN: -Continue 72-hour calorie count -Continue TPN for now until oral intake increases. -Clinically patient is having flatus and bowel movements. He is tolerating ground diet. KUB x-ray completed showing no evidence of bowel obstruction. -Due to patient's comorbidities expect longer time for recovery -Continue supportive care -Continue ground diet Physician Firer Boiler note has been reviewed by physician. Signing provider agrees with the documented findings, assessment, and plan of care. Objective - Vital Signs Vital signs: Vital Signs Temp 97.9 F 08/25/23 11:50 Pulse 86 08/25/23 12:01 Resp 16 08/25/23 11:50 BP 169/83 08/25/23 11:50 Pulse Ox 97 08/25/23 11:50 FiO2 Intake & Output 08/24/23 08/25/23 08/25/23 18:59 06:59 18:59 Intake Total 1115.6 1132.8 Output Total 1000 2950 975 Balance 115.6 -2950 157.8 Weight 79.5 kg 74 kg 74 kg Intake: Intake, IV Titration 997.6 1012.8 Amount Mvi, Adult No.4 with Vit 997.6 1012.8 K 10 ml Trace (Conc-1Ml/ Dose) 1 ml Sodium Acetate 40 meq Calcium Gluconate 1 gm Magnesium Sulfate gm 1.5 gm In Amino Acids 5 %/Dextrose 20 % 1,000 ml @ 48 mls/hr IV . [id number] [facility] OF [facility] Rx#:[id number] Oral 118 120 Output: Urine 1000 2950 975 Other: Voiding Method Indwelling Catheter Indwelling Catheter Indwelling Catheter - Labs CBC & Chem 7: 08/25/23 10:47 08/25/23 10:47 Labs: Abnormal Lab Results - Last 24 Hours (Table) 08/24/23 08/25/23 08/25/23 Range/Units 18:32 00:08 10:47 RBC (4.30-5.90) m/uL Hgb (13.0-17.5) gm/dL Hct (39.0-53.0) % Plt Count (150-450) k/uL Eosinophils # (0-0.7) k/uL Chloride 108 H (98-107) mmol/L BUN 27 H (9-20) mg/dL Creatinine 1.29 H (0.66-1.25) mg/dL POC Glucose (mg/dL) 121 H 118 H (70-110) mg/dL Calcium 8.0 L (8.4-10.2) mg/dL Alkaline Phosphatase 252 H (38-126) U/L Total Protein 5.5 L (6.3-8.2) g/dL Albumin 2.3 L (3.5-5.0) g/dL 08/25/23 Range/Units 10:47 RBC 2.81 L (4.30-5.90) m/uL Hgb 8.0 L (13.0-17.5) gm/dL Hct 25.2 L (39.0-53.0) % Plt Count 840 H (150-450) k/uL Eosinophils # 0.9 H (0-0.7) k/uL Chloride (98-107) mmol/L BUN (9-20) mg/dL Creatinine (0.66-1.25) mg/dL POC Glucose (mg/dL) (70-110) mg/dL Calcium (8.4-10.2) mg/dL Alkaline Phosphatase (38-126) U/L Total Protein (6.3-8.2) g/dL Albumin (3.5-5.0) g/dL
[2023-08-25 16:24] LABS: Prealbumin 15.2 mg/dL (18.0-42.0)
[2023-08-25 16:47] LABS: Glucose,Whole Blood 100 mg/dL (70-110)
[2023-08-25 19:43] LABS: T4, Free (Free Thyroxine) 0.76 ng/dL (0.78-2.19)
[2023-08-25] MEDS: METOPROLOL TARTRATE 50 MG TAB PO SCH (21:59)
[2023-08-26 00:04] LABS: Glucose,Whole Blood 109 mg/dL (70-110)
[2023-08-26 06:06] LABS: Glucose,Whole Blood 112 mg/dL (70-110)
--- NOTE | 2023-08-26 10:38 | XR ---
EXAMINATION TYPE: XR chest 1V portable DATE OF EXAM: 08/26/2023 Comparison: 08/10/2023 Clinical History: 83-year-old male aspiration Findings: Right PICC tip upper SVC. Heart upper limits of normal in size. Worsening perihilar and bibasilar opa cities. Impression: 1. Right PICC tip at the upper SVC. 2. Worsening perihilar and bibasilar opacities.
--- NOTE | 2023-08-26 10:44 | P.PN ---
Subjective patient is seen for follow-up for acute kidney injury. status post temporary hemodialysis. Renal function has improved. Patient is comfortable. serum creatinine is down to 1.29. maintained on TPN. Calorie count in progress Objective - Vital Signs Vital signs: Vital Signs Temp 98.7 F 08/26/23 08:00 Pulse 96 08/26/23 10:07 Resp 22 08/26/23 08:00 BP 178/84 08/26/23 08:00 Pulse Ox 95 08/26/23 08:00 FiO2 Intake & Output 08/25/23 08/26/23 08/26/23 18:59 06:59 18:59 Intake Total 1252.8 0 Output Total 1825 1700 400 Balance -572.2 -1700 -400 Weight 74 kg 73 kg Intake: Intake, IV Titration 1012.8 Amount Mvi, Adult No.4 with Vit 1012.8 K 10 ml Trace (Conc-1Ml/ Dose) 1 ml Sodium Acetate 40 meq Calcium Gluconate 1 gm Magnesium Sulfate gm 1.5 gm In Amino Acids 5 %/Dextrose 20 % 1,000 ml @ 48 mls/hr IV . [id number] [facility] Rx#:[id number] Oral 240 0 Output: Urine 1825 1700 400 Other: Voiding Method Indwelling Catheter Indwelling Catheter Indwelling Catheter - Exam patient is sleeping but arousable. 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 exam shows patient is moving all 4 extremities - Labs CBC & Chem 7: 08/25/23 10:47 08/25/23 10:47 Labs: Abnormal Lab Results - Last 24 Hours (Table) 08/25/23 08/25/23 08/25/23 Range/Units 10:47 10:47 17:49 RBC 2.81 L (4.30-5.90) m/uL Hgb 8.0 L (13.0-17.5) gm/dL Hct 25.2 L (39.0-53.0) % Plt Count 840 H (150-450) k/uL Eosinophils # 0.9 H (0-0.7) k/uL Chloride 108 H (98-107) mmol/L BUN 27 H (9-20) mg/dL Creatinine 1.29 H (0.66-1.25) mg/dL POC Glucose (mg/dL) (70-110) mg/dL Calcium 8.0 L (8.4-10.2) mg/dL Alkaline Phosphatase 252 H (38-126) U/L Total Protein 5.5 L (6.3-8.2) g/dL Albumin 2.3 L (3.5-5.0) g/dL Prealbumin 15.2 L (18.0-42.0) mg/dL TSH 36.900 H (0.465-4.680) mIU/L Free T4 0.76 L (0.78-2.19) ng/dL 08/26/23 Range/Units 06:04 RBC (4.30-5.90) m/uL Hgb (13.0-17.5) gm/dL Hct (39.0-53.0) % Plt Count (150-450) k/uL Eosinophils # (0-0.7) k/uL Chloride (98-107) mmol/L BUN (9-20) mg/dL Creatinine (0.66-1.25) mg/dL POC Glucose (mg/dL) 112 H (70-110) mg/dL Calcium (8.4-10.2) mg/dL Alkaline Phosphatase (38-126) U/L Total Protein (6.3-8.2) g/dL Albumin (3.5-5.0) g/dL Prealbumin (18.0-42.0) mg/dL TSH (0.465-4.680) mIU/L Free T4 (0.78-2.19) ng/dL Assessment and Plan Assessment: 1. Acute kidney injury secondary to hemodynamic ATN. No hydronephrosis noted on CAT scan. Started on hemodialysis August 10, 2023. Last dialysis August 12, 2023. Permacath removed August 19, 2023. Renal function improving. Creatinine 1.2 Nonoliguric. 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 Heme/onc following. 2. Chronic kidney disease stage IIIb with baseline creatinine 1.3-1.5 secondary to nephrosclerosis. 3. Partial small bowel obstruction. Receiving TPN. Surgery following. 4. Metabolic acidosis secondary to acute kidney injury and IV fluids. Better. 5. Atrial tachycardia status post Cardizem drip. On metoprolol. Cardiology following. 6. Anemia. Iron deficiency noted - s/p IV iron. 7. Hyperkalemia secondary to acute kidney injury. improved. Plan: continue to monitor volume status closely. Continue with Dow catheter Continue to avoid nephrotoxins continue TPN.
[2023-08-26] MEDS: METOPROLOL TARTRATE 5 MG/5 ML VIAL IVP SCH (10:54)
[2023-08-26 11:38] LABS: Glucose,Whole Blood 100 mg/dL (70-110)
[2023-08-26 11:54] LABS: African American GFR (CKD) 60 (>60 ml/min/1.73 sqM); Anion Gap 4 mmol/L; Blood Urea Nitrogen 29 mg/dL (9-20); Calcium 8.4 mg/dL (8.4-10.2); Carbon Dioxide 25 mmol/L (22-30); Chloride 106 mmol/L (98-107); Glucose 107 mg/dL (74-99); Magnesium 1.9 mg/dL (1.6-2.3); Non-African American GFR(CKD) 52 (>60 ml/min/1.73 sqM); Phosphorus 3.3 mg/dL (2.5-4.5); Potassium 4.2 mmol/L (3.5-5.1); Sodium 135 mmol/L (137-145)
[2023-08-26] MEDS: MVI, ADULT NO.4 WITH VIT K 10 ML, TRACE (CONC-1ML/DOSE) 1 ML, SODIUM ACETATE 40 MEQ, CA... IV SCH (12:33)
--- NOTE | 2023-08-26 12:54 | P.PN ---
Subjective Progress Note Date: 08/26/23 CHIEF COMPLAINT: Abdominal pain HISTORY OF PRESENT ILLNESS: Patient with small bowel obstruction status post robotic assisted laparoscopic lysis of adhesions and decompressive enterostomy on 08/08/2023. Patient is lying in bed. No new complaints. Patient completed calorie count. Oral intake is poor PHYSICAL EXAM: VITAL SIGNS: Reviewed GENERAL: Well-developed in no acute distress. HEENT: No sclera icterus. Extraocular movements grossly intact. Moist buccal mucosa. Head is atraumatic, normocephalic. Hears conversational speech. No nasal drainage. NECK: Supple without lymphadenopathy. CHEST: Non-labored respirations and equal bilateral excursions. CARDIOVASCULAR: Palpable 2+ radial pulses. ABDOMEN: Nondistended. Nontender. No signs of peritonitis. nontender. Incision sites clean dry and intact. MUSCULOSKELETAL: No clubbing or cyanosis. NEUROLOGIC: No focal or lateralizing signs. Cranial nerves II through XII grossly intact. PSYCH: confused SKIN: Well perfused. Good skin turgor. ASSESSMENT: 1. Small bowel obstruction due to adhesion, lower pelvis left lower quadrant status post lysis of adhesions and decompressive enterostomy 2. Expected ileus due to physical inactivity, spinal stenosis and chronic back pain and acute renal failure 3. Acute renal failure 4. Sigmoid diverticulosis 5. Left lower quadrant abdominal pain 6. Internal hernia pelvis 7. Poor oral intake PLAN: -Patient scheduled for EGD with PEG tube placement on 08/29/[address] Pinzon for poor oral intake -Continue TPN -Continue supportive care -Continue ground diet Physician White Work Cleaner note has been reviewed by physician. Signing provider agrees with the documented findings, assessment, and plan of care. Objective - Vital Signs Vital signs: Vital Signs Temp 98.7 F 08/26/23 08:00 Pulse 96 08/26/23 10:07 Resp 22 08/26/23 08:00 BP 178/84 08/26/23 08:00 Pulse Ox 95 08/26/23 08:00 FiO2 Intake & Output 08/25/23 08/26/23 08/26/23 18:59 06:59 18:59 Intake Total 1252.8 0 Output Total 1825 1700 400 Balance -572.2 -1700 -400 Weight 74 kg 73 kg Intake: Intake, IV Titration 1012.8 Amount Mvi, Adult No.4 with Vit 1012.8 K 10 ml Trace (Conc-1Ml/ Dose) 1 ml Sodium Acetate 40 meq Calcium Gluconate 1 gm Magnesium Sulfate gm 1.5 gm In Amino Acids 5 %/Dextrose 20 % 1,000 ml @ 48 mls/hr IV . [id number] [facility] Rx#:[id number] Oral 240 0 Output: Urine 1825 1700 400 Other: Voiding Method Indwelling Catheter Indwelling Catheter Indwelling Catheter - Labs CBC & Chem 7: 08/25/23 10:47 08/26/23 11:14 Labs: Abnormal Lab Results - Last 24 Hours (Table) 08/25/23 08/25/23 08/25/23 Range/Units 10:47 10:47 17:49 RBC 2.81 L (4.30-5.90) m/uL Hgb 8.0 L (13.0-17.5) gm/dL Hct 25.2 L (39.0-53.0) % Plt Count 840 H (150-450) k/uL Eosinophils # 0.9 H (0-0.7) k/uL Chloride 108 H (98-107) mmol/L BUN 27 H (9-20) mg/dL Creatinine 1.29 H (0.66-1.25) mg/dL POC Glucose (mg/dL) (70-110) mg/dL Calcium 8.0 L (8.4-10.2) mg/dL Alkaline Phosphatase 252 H (38-126) U/L Total Protein 5.5 L (6.3-8.2) g/dL Albumin 2.3 L (3.5-5.0) g/dL Prealbumin 15.2 L (18.0-42.0) mg/dL TSH 36.900 H (0.465-4.680) mIU/L Free T4 0.76 L (0.78-2.19) ng/dL 08/26/23 Range/Units 06:04 RBC (4.30-5.90) m/uL Hgb (13.0-17.5) gm/dL Hct (39.0-53.0) % Plt Count (150-450) k/uL Eosinophils # (0-0.7) k/uL Chloride (98-107) mmol/L BUN (9-20) mg/dL Creatinine (0.66-1.25) mg/dL POC Glucose (mg/dL) 112 H (70-110) mg/dL Calcium (8.4-10.2) mg/dL Alkaline Phosphatase (38-126) U/L Total Protein (6.3-8.2) g/dL Albumin (3.5-5.0) g/dL Prealbumin (18.0-42.0) mg/dL TSH (0.465-4.680) mIU/L Free T4 (0.78-2.19) ng/dL
--- NOTE | 2023-08-26 15:44 | P.PN ---
Subjective Progress Note Date: 08/26/23 Principal diagnosis: Reason for follow-up is fever likely abdominal source Patient is a 83-year-old male with a past medical history significant for coronary disease COPD dementia hypertension hyperlipidemia reflux presenting to the hospital for evaluation of abdominal pain bloating has been diagnosed with the distal small bowel obstruction developing a fever concerning for possible abdominal sepsis prompting this consultation.Patient is status post robotic assisted laparoscopic lysis of adhesion extensive and decompressive enterostomy that was completed on 08/08/2023 On today's evaluation that is 08/26/2023,the patient has been afebrile patient is currently on room air and is breathing comfortably patient remains to be lethargic and cannot provide any history of vomiting diarrhea or any other changes reported by the nursing staff. No CBC was done today his creatinine is 1.16 Objective - Vital Signs Vital signs: Vital Signs Temp 97.7 F 08/26/23 04:00 Pulse 100 08/26/23 04:00 Resp 16 08/26/23 04:00 BP 179/90 08/26/23 04:00 Pulse Ox 97 08/26/23 04:00 FiO2 Intake & Output 08/25/23 08/26/23 08/26/23 18:59 06:59 18:59 Intake Total 1252.8 Output Total 1825 1700 Balance -572.2 -1700 Weight 74 kg 73 kg Intake: Intake, IV Titration 1012.8 Amount Mvi, Adult No.4 with Vit 1012.8 K 10 ml Trace (Conc-1Ml/ Dose) 1 ml Sodium Acetate 40 meq Calcium Gluconate 1 gm Magnesium Sulfate gm 1.5 gm In Amino Acids 5 %/Dextrose 20 % 1,000 ml @ 48 mls/hr IV . [id number] [facility] Rx#:[id number] Oral 240 Output: Urine 1825 1700 Other: Voiding Method Indwelling Catheter Indwelling Catheter - Exam GENERAL DESCRIPTION: An elderly male up in the chair in no distress RESPIRATORY SYSTEM: Unlabored breathing , decreased breath sounds at bases HEART: S1 S2 regular rate and rhythm , ABDOMEN: Soft , no tenderness EXTREMITIES: No edema feet - Labs CBC & Chem 7: 08/25/23 10:47 08/26/23 11:14 Labs: Abnormal Lab Results - Last 24 Hours (Table) 08/25/23 08/25/23 08/25/23 Range/Units 10:47 10:47 17:49 RBC 2.81 L (4.30-5.90) m/uL Hgb 8.0 L (13.0-17.5) gm/dL Hct 25.2 L (39.0-53.0) % Plt Count 840 H (150-450) k/uL Eosinophils # 0.9 H (0-0.7) k/uL Chloride 108 H (98-107) mmol/L BUN 27 H (9-20) mg/dL Creatinine 1.29 H (0.66-1.25) mg/dL POC Glucose (mg/dL) (70-110) mg/dL Calcium 8.0 L (8.4-10.2) mg/dL Alkaline Phosphatase 252 H (38-126) U/L Total Protein 5.5 L (6.3-8.2) g/dL Albumin 2.3 L (3.5-5.0) g/dL Prealbumin 15.2 L (18.0-42.0) mg/dL TSH 36.900 H (0.465-4.680) mIU/L Free T4 0.76 L (0.78-2.19) ng/dL 08/26/23 Range/Units 06:04 RBC (4.30-5.90) m/uL Hgb (13.0-17.5) gm/dL Hct (39.0-53.0) % Plt Count (150-450) k/uL Eosinophils # (0-0.7) k/uL Chloride (98-107) mmol/L BUN (9-20) mg/dL Creatinine (0.66-1.25) mg/dL POC Glucose (mg/dL) 112 H (70-110) mg/dL Calcium (8.4-10.2) mg/dL Alkaline Phosphatase (38-126) U/L Total Protein (6.3-8.2) g/dL Albumin (3.5-5.0) g/dL Prealbumin (18.0-42.0) mg/dL TSH (0.465-4.680) mIU/L Free T4 (0.78-2.19) ng/dL Assessment and Plan (1) Fever Current Visit: Yes Status: Acute Code(s): R50.9 - FEVER, UNSPECIFIED SNOMED Code(s): 426614629 (2) Leukocytosis Current Visit: Yes Status: Acute Code(s): D72.829 - ELEVATED WHITE BLOOD CELL COUNT, UNSPECIFIED SNOMED Code(s): 461279458 (3) Small bowel obstruction Current Visit: Yes Status: Acute Code(s): K56.609 - UNSP INTESTNL OBST, UNSP TO PARTIAL VERSUS COMPLETE OBST SNOMED Code(s): 067882990 (4) Peritonitis Current Visit: Yes Status: Acute Code(s): K65.9 - PERITONITIS, UNSPECIFIED SNOMED Code(s): 06074586 Plan: 1patient with low-grade fever elevated white count and this patient presented to hospital with abdominal pain and bloating and has been diagnosed with the small bowel obstruction likely etiology for his low-grade fever and elevated white count, the patient is status post laparoscopic lysis of adhesion and enterostomy abdominal cultures obtained which are currently growing Enterococcus drug-resistant Enterobacter and Marybeth 2-patient is afebrile, patient white count has been normal 3-patient is currently covered with meropenem and Eraxis plan is for possible PEG tube placement on 08/29/2023 and monitor clinical course closely Dictation was produced using [employer] dictation software. please excuse any grammatical, word or spelling errors. Time with Patient: Less than 30
--- NOTE | 2023-08-26 15:44 | P.PN ---
Subjective Progress Note Date: 08/26/23 This is a 83-year-old male patient with a known history of coronary artery disease with previous stent placement, dementia, hypertension, hyperlipidemia, hypothyroidism, non-smoker who presented here to the emergency room on 08/01/2023 with abdominal pain. He had been followed by surgical services. He did have a nasogastric tube which had approximately 2100 cc output once put in. However the patient inadvertently pulled it out last night. Today he had developed increased abdominal discomfort, tachycardia and shortness of breath. We were consulted for possible transfer to the ICU. He is seen today on the regular medical floor. He is awake and alert. He denies any pain at rest. He is tender to palpation. He is tachycardic, sinus. Currently afebrile. Continue O2 saturations in the mid 90s on 3 L/min per nasal cannula. Blood pressure stable. Blood cultures reveal no growth. White count 8.5. Hemoglobin 12.6. Platelets 373. Sodium 139. Potassium 4.6. Bicarb 14. BUN 34. Creatinine 3.11. Glucose 88. Amylase 73. Lipase 49. CT scan of the abdomen today revealed bowel obstruction pattern. Small amount of free fluid. Chest x-ray reveals no acute cardiopulmonary process. A nasogastric tube has been reinserted and in good position. He is currently on Zosyn. Patient was seen and examined today on 08/05/2023, patient is doing much better today compared to the last 2 days, less abdominal pain, no nausea no vomiting, continues to have nasogastric tube in place.WBC count is 9.9 hemoglobin 11.3 basic metabolic profile is normal however his renal functioning is worse with BUN up to 69 creatinine 5.60, and that is being addressed by nephrology on the case. His acute kidney injury is felt to be related to hemodynamic ATN, no hydronephrosis on CT of the abdomen, patient does have history of chronic kidney disease stage IIIb. Patient is on Cardizem drip now for atrial tachycardia. And cardiology is following Reevaluate today on 08/06/23, patient pulled his nasogastric tube yesterday, continues to have abdominal distention and abdominal pain. Apparently multiple attempts by nurses to place the nasogastric tube were unsuccessful. Surgery is to address the nasogastric tube placement and or exploratory laparotomy on this patient to relieve his bowel obstruction.WBC count today is 8.4 hemoglobin 10.4, basic metabolic profile is normal renal profile is worsening with a BUN of 85 creatinine 6.08 and his renal profile is being addressed by nephrology on the case Patient was reevaluated today on 08/07/2023, continues to have abdominal pain, continues to have small bowel obstruction, and now he is developing worsening renal disease. From the looks of it, patient may be heading towards dialysis. Patient was seen by Dr. Truong today, and I believe he is recommending exploratory laparotomy after he is seen by Dr. Goodman tomorrow. Continues to have decent urine output, 600 cc in the last 8 hours. Could not have a nasogastric tube placed back, patient is getting in Progress note dated August 08, 2023. 83-year-old male seen in room 378. The patient is currently on 2 L of oxygen. The patient is getting dextrose with half-normal saline at 100 cc an hour. He does have a significantly tender abdomen, anytime he burps, or coughs. Also, he is tender on palpation. Current labs include a white count 9.5, hemoglobin 11.4, hematocrit 36, and a platelet count of 343,000. Sodium 143, potassium 4.2, chlorides 107, CO2 27, BUN 93, creatinine 5.62. Calcium is 8, with a phosphorus of 5.4. Glucose is 97. Blood cultures are negative. Progress note dated August 09, 2023. 83-year-old male seen today in room 378. The patient is currently on 3 L of oxygen. NG tube remains in place. He is getting D5 with half-normal saline at 100 cc an hour. The patient has significant abdominal pain on palpation of the abdomen. Labs today include a white count 9.3, hemoglobin 10.8, hematocrit 33.9, and a platelet count of 355,000. Sodium 140, potassium 4.4, chlorides 110, CO2 22, BUN 87, and creatinine 5.53. Glucose is 116. Albumin is 2. All microbiologic sampling is thus far negative. Progress note dated August 10, 2023. 83-year-old male seen again in room 378. The patient again pulled out his NG tube. The patient is on room air. The patient is getting TPN at 30 cc an hour. The patient still has significant abdominal discomfort on palpation. I count 10.5, hemoglobin 10.7, hematocrit 33.8, and platelet count is 384,000. Sodium 140, potassium 3.8, chlorides 107, CO2 20, anion gap 13, BUN 92, creatinine 5.60. Glucose is 123. Magnesium 1.9. Phosphorus 5.2. Progress note dated August 11, 2023. 83-year-old male seen today in room 377. Currently, the patient is receiving hemodialysis. He is on room air. The patient is a DO NOT RESUSCITATE patient. He is getting TPN at 48 cc an hour. He continues on Eraxis, and Zosyn. No new laboratory data today as yet, other than a glucose of 106. Chest x-ray from yesterday shows some mild streaky basilar atelectasis. Progress note dated August 12, 2023. 83-year-old male, seen in room 377. Currently, the patient is on room air. The patient is getting TPN at 48 cc an hour. He continues on Eraxis, and meropenem. Current labs include a sodium 133, potassium 3.2, chlorides 102, CO2 24, BUN 37, creatinine 2.53. Glucose is 128. Calcium 7.5. Albumin 1.9. The patient does not appear to be as tender, on palpation of the abdomen, as he has been, on previous days. Progress note dated August 13, 2023. 83-year-old male seen today in room 377. The patient continues on room air. Sa turations are 94%. The rest of his vital signs are relatively stable. The patient continues on TPN at 48 cc an hour, and D5.45, at 100 cc an hour. He also continues on meropenem, and the antifungal, and Eraxis. Current laboratory data includes a sodium 131, potassium 3.3, chlorides 101, CO2 25, BUN 23, creatinine 1.96. Glucose is 115. Albumin is 1.9. Wound cultures were positive for Enterobacter aerogenes, Marybeth albicans, and Enterococcus faecalis. The patient is seen today August 14, 2023 in follow-up on the regular medical floor. He is currently resting in bed. He denies any worsening abdominal pain. He is maintaining O2 saturations in the 90s on room air. He has D5 W and 0.45 normal saline at 100 MLS per hour. He remains on TPN at 40 MLS per hour. Wound cultures were positive for Enterobacter aerogenes, Marybeth albicans, Enterococcus faecalis. White count 11.4. Hemoglobin 9.5. Platelets 358. Sodium 130. Potassium 3.8. Bicarb 25. BUN 28. Creatinine 2.29. Glucose 98. C-reactive protein 6.5. He is continued on meropenem and Eraxis. Continued on bronchodilators. Heparin for DVT prophylaxis. The patient is seen today August 22, 2023 in follow-up on the regular medical floor. He is currently awake and alert in no acute distress. He is maintaining O2 saturations in the 90s on 2 L/min per nasal cannula. His surgery was back on August 08, 2023. He remains on TPN for nutritional support. He is having bowel movements. He is continued on antibiotics in the form of meropenem and Eraxis. Remains on bronchodilators. Remains on heparin for DVT prophylaxis. White count 9.5. Hemoglobin 7.8. Sodium 135. Potassium 4.8. Bicarb 18. BUN 39. Creatinine 1.76. AST 53. ALT 34. Patient was reevaluated today on 08/23/2023, patient seems to be comfortable, not in pulmonary distress, he is on 2 L nasal cannula with O2 sats at 98%, however the patient seems to be a bit more confused, and keeps pulling on his boots, for no specific purpose. Labs today showed relatively normal electrolytes, BUN is 32 creatinine is down to 1.62 patient has no more issues related to his bowel obstruction, his medications were all reviewed, remains being followed by multiple consultants including infectious disease, remains on Eraxis for almost the last 2 weeks. Patient is also receiving Merrem, for almost 2 weeks. Patient is also receiving TPN. Pulmonary kraft we have a mostly on bronchodilators. Reevaluate 08/24/2023, patient is doing well, he definitely denies any shortness of breath cough or wheezing, denies any abdominal pain nausea or vomiting, patie nt seems to be very comfortable, but intermittently confused. Patient remains on TPN, and the plan is to continue TPN until the patient caloric oral count improves. Patient did present initially with small bowel obstruction, and he had adhesions, underwent lysis of adhesions and decompressive enterostomy and done quite well since then. In addition the patient developed acute renal failure. Patient has been steadily improving last creatinine was 1.56 with a BUN of 31 patient did have a temporary hemodialysis. His permacath was removed on August 18 and renal functioning has been steadily improving creatinine is now 1.6 Reevaluate today on 08/25/2023, patient is basically about the same, still having difficulty with maintaining adequate caloric count. Remains on TPN, today is his 14th day of antibiotics, and hopefully this will be discontinued by infectious disease on the case. Nephrology kraft patient creatinine is coming down steadily, and steadily improving, he had a temporary hemodialysis but has not required any dialysis recently.WBC count is 8.5 hemoglobin is 8 basic metabolic profile is normal creatinine today is 1.29 The patient is seen today August 26, 2023 in follow-up on the regular medical floor. He remains quite weak and debilitated. He is maintaining O2 saturations in the 90s on room air. X-ray shows perihilar and basilar opacities. Right upper extremity PICC line in place. Sodium 135. Potassium 4.2. Bicarb 25. BUN 29. Creatinine 1.26. Glucose 107. He was having issues with increased lethargy facial drooping and choking on food. Plan is for PEG tube placement on 08/29/2023. He is continued on Eraxis and meropenem. Remains on TPN for nutritional support. Objective - Vital Signs Vital signs: Vital Signs Temp 98 F 08/26/23 15:29 Pulse 95 08/26/23 15:29 Resp 18 08/26/23 15:29 BP 164/89 08/26/23 15:29 Pulse Ox 95 08/26/23 15:29 FiO2 Intake & Output 08/25/23 08/26/23 08/26/23 18:59 06:59 18:59 Intake Total 1252.8 0 Output Total 1825 1700 1050 Balance -572.2 -1700 -1050 Weight 74 kg 73 kg 73 kg Intake: Intake, IV Titration 1012.8 Amount Mvi, Adult No.4 with Vit 1012.8 K 10 ml Trace (Conc-1Ml/ Dose) 1 ml Sodium Acetate 40 meq Calcium Gluconate 1 gm Magnesium Sulfate gm 1.5 gm In Amino Acids 5 %/Dextrose 20 % 1,000 ml @ 48 mls/hr IV . [id number] [facility] Rx#:[id number] Oral 240 0 Output: Urine 1825 1700 1050 Other: Voiding Method Indwelling Catheter Indwelling Catheter Indwelling Catheter - Exam GENERAL EXAM: Alert, weak debilitated 83-year-old male, on room air, in no apparent distress. HEAD: Normocephalic. EYES: Normal reaction of pupils, equal size. NOSE: Clear with pink turbinates. THROAT: No erythema or exudates. NECK: No masses, no JVD. CHEST: No chest wall deformity. LUNGS: Equal air entry with no crackles, wheeze, rhonchi or dullness. CVS: S1 and S2 normal with no audible murmur, regular rhythm. ABDOMEN: Incision sites clean dry well-approximated. No hepatosplenomegaly, normal bowel sounds, no guarding or rigidity. SPINE: No scoliosis or deformity SKIN: No rashes CENTRAL NERVOUS SYSTEM: No focal deficits, tone is normal in all 4 extremities. EXTREMITIES: There is no peripheral edema. No clubbing, no cyanosis. Peripheral pulses are intact. - Labs CBC & Chem 7: 08/25/23 10:47 08/26/23 11:14 Labs: Abnormal Lab Results - Last 24 Hours (Table) 08/25/23 08/25/23 08/26/23 Range/Units 10:47 17:49 06:04 Sodium (137-145) mmol/L BUN (9-20) mg/dL Creatinine (0.66-1.25) mg/dL Glucose (74-99) mg/dL POC Glucose (mg/dL) 112 H (70-110) mg/dL Prealbumin 15.2 L (18.0-42.0) mg/dL TSH 36.900 H (0.465-4.680) mIU/L Free T4 0.76 L (0.78-2.19) ng/dL 08/26/23 Range/Units 11:14 Sodium 135 L (137-145) mmol/L BUN 29 H (9-20) mg/dL Creatinine 1.26 H (0.66-1.25) mg/dL Glucose 107 H (74-99) mg/dL POC Glucose (mg/dL) (70-110) mg/dL Prealbumin (18.0-42.0) mg/dL TSH (0.465-4.680) mIU/L Free T4 (0.78-2.19) ng/dL Assessment and Plan Assessment: Abdominal pain in a patient found to have a bowel obstruction and small amount of free fluid status post lysis of adhesions and decompressive enterostomy on 08/08/2023 Acute hypoxemic respiratory failure secondary to above, history of COPD but is a lifelong non-smoker recovered and on room air. There is no concerns regarding aspiration Dysphagia and aspiration, plan is for PEG tube placement on 08/29/2023 continued on TPN for nutritional support History of coronary disease with previous stent placement Hypertension Hyperlipidemia Hypothyroidism Dementia Lifelong non-smoker Plan: The patient was seen and evaluated Chest x-ray, labs and medications reviewed Suspect aspiration and now PEG tube placement pending Remains on TPN for nutritional support Remains on meropenem and Eraxis DNR CODE STATUS Poor prognosis Plan is for [facility] at discharge I have personally seen and examined the patient, performed the documentation and the assessment and plan as written. Number of minutes spent on the visit: 10.
[2023-08-26] MEDS: LABETALOL 5 MG/ML VIAL MDV IV PRN (16:11)
--- NOTE | 2023-08-26 16:31 | P.PN ---
Subjective Progress Note Date: 08/26/23 Progress note Date of service: 08/26/[address] Griffin. Patient seen at bedside [id number] and discussed with his daughter and her . Patient lethargic and this morning they try to give him the medication orally and apparently he has choked and coughed the page me stat on the [employer] and subsequently patient become n.p.o., chest x-ray ordered with questionable aspiration, and speech pathology at bedside evaluation ordered and she came and put him only on ice chips, also we ordered neurological evaluation as well from Dr. Crabtree Review of the laboratory: BMP indicating sodium 135 potassium 4.2 chloride 106 carbon oxide 25 anion gap is 4 and BUN of 29 creatinine 1.26 with EGFR is 52 which is baseline chronic kidney disease stage III. Patient had TPN and his blood sugar 100 glucose. Calcium 8.4 normalized and phosphorus 3.3 magnesium 1.9 With his sluggish we obtained a TSH on 08/25/2023 and the result was found today and if his TSH is 36.9 and the free T4 is 0.76. In the spite of patient receiving levothyroxine 75 mcg daily orally. I am not sure if the patient able to utilize the oral intake with the assumed that that patient has been taking the pills prior to the data in the computer. Now with his n.p.o. will be starting him on IV levothyroxine I discussed it with pharmacy And indicating that the dose will be around 80 mcg IV push order was given with 1 dose today. Hypertension still persistent with the tachycardia and we increased his beta- blockers to 50 mg twice a day metoprolol however now patient is n.p.o. except ice chips and discussed with the pharmacy and able to start him on labetalol small dose on a as needed basis if the blood pressure more than 140 systolic Discussed with his daughter in detail at bedside Physical exam: 98 F axillary temperature, heart rate 98/min, respiratory rate 18/min, blood pressure 164/89 with a mean 114, oxygen saturation 95 on room air. 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 Oropharynx natural teeth he was able to swallow without choking prior to the event He was also able to talk and communicate however he is lethargic and could be possibility with the association with the severe hypothyroidism with the significant elevation of TSH. Neck supple no JVD no thyromegaly no lymphadenopathy trachea midline. Chest: He has normal breath sound, however chest x-ray done today indicating right PICC line to the upper superior vena cava and worsening perihilar and bibasilar opacities. Heart regular sinus rhythm with tendency for tachycardia. Abdomen soft positive bowel sounds and soft or abdomen. Extremities: Positive pulses and no edema. Neurologically: Lethargic sleepy Assessment: 1. Today new event reviewed choking with medication could not swallow placed on n.p.o. 2. Consultation with speech pathology and placed patient on ice chips only 3. Consultation with neurology for evaluation. 4. Severe leg and foot impairment of thyroid function and found that his TSH extremely 5. Hypertension not well-controlled and will be starting added medication to the beta-radha 6. Still on the tachycardic side 7. Patient n.p.o. with the underlying protein calorie deficiency and prolonged starvation still on the TPN I did discuss it with me again nutritional consultation as Mrs. Muñoz was already went home. 8 renal function improved with the history of presentation of acute renal failure and acute kidney injury secondary to ATN and hypotension 9. History of small bowel obstruction secondary to adhesion 10. Status post robotic laparoscopic lysis of adhesion by Dr. Pinzon on August 08, 2023. 11. Followed by prolonged ileus of the abdomen 12. History of respiratory failure and shortness of breath and hypoxemia corrected with history of asthma. 13. Underlying history of sinus tachycardia with a preserved ejection fraction. #14 lumbar stenosis with walking difficulty. 15. Underlying cognitive function impairment with progressive dementia. 16. Underlying hemodialysis from the right subclavian dialysis catheter stopped on August 12, 2023. Plan: 1. Discussed with the daughter in details with the explanation 2. Also discussed with the Dr. Crabtree the neurology. 3. Discussed with the pharmacy Dr. Hernandez in regard of change to IV medication for blood pressure as well as thyroid 4. Still patient will be followed by speech pathology, 5. Hopefully with the levothyroxine IV patient started to be more awake and alert. 6. Also wait for the neurology input thank you Time spent between the family and the patient evaluation 45 minutes. Objective - Vital Signs Vital signs: Vital Signs Temp 98 F 08/26/23 15:29 Pulse 95 08/26/23 15:29 Resp 18 08/26/23 15:29 BP 164/89 08/26/23 15:29 Pulse Ox 95 08/26/23 15:29 FiO2 Intake & Output 08/25/23 08/26/23 08/26/23 18:59 06:59 18:59 Intake Total 1252.8 0 Output Total 1825 1700 1050 Balance -572.2 -1700 -1050 Weight 74 kg 73 kg 73 kg Intake: Intake, IV Titration 1012.8 Amount Mvi, Adult No.4 with Vit 1012.8 K 10 ml Trace (Conc-1Ml/ Dose) 1 ml Sodium Acetate 40 meq Calcium Gluconate 1 gm Magnesium Sulfate gm 1.5 gm In Amino Acids 5 %/Dextrose 20 % 1,000 ml @ 48 mls/hr IV . [id number] [facility] Rx#:[id number] Oral 240 0 Output: Urine 1825 1700 1050 Other: Voiding Method Indwelling Catheter Indwelling Catheter Indwelling Catheter - Labs CBC & Chem 7: 08/25/23 10:47 08/26/23 11:14 Labs: Abnormal Lab Results - Last 24 Hours (Table) 08/25/23 08/25/23 08/26/23 Range/Units 10:47 17:49 06:04 Sodium (137-145) mmol/L BUN (9-20) mg/dL Creatinine (0.66-1.25) mg/dL Glucose (74-99) mg/dL POC Glucose (mg/dL) 112 H (70-110) mg/dL Prealbumin 15.2 L (18.0-42.0) mg/dL TSH 36.900 H (0.465-4.680) mIU/L Free T4 0.76 L (0.78-2.19) ng/dL 08/26/23 Range/Units 11:14 Sodium 135 L (137-145) mmol/L BUN 29 H (9-20) mg/dL Creatinine 1.26 H (0.66-1.25) mg/dL Glucose 107 H (74-99) mg/dL POC Glucose (mg/dL) (70-110) mg/dL Prealbumin (18.0-42.0) mg/dL TSH (0.465-4.680) mIU/L Free T4 (0.78-2.19) ng/dL
[2023-08-26] MEDS: LEVOTHYROXINE IVP 100 MCG/5 ML VIAL IV SCH (16:36)
[2023-08-26 17:09] LABS: Glucose,Whole Blood 96 mg/dL (70-110)
--- NOTE | 2023-08-26 18:15 | P.CNNES ---
History of Present Illness Consult date: 08/26/23 Requesting physician: Kevin Griffin Reason for Consult: Altered mental status, evaluate and treat History of Present Illness: Patient is a 83-year-old male with multiple medical problems including history of at least moderate dementia, came to the hospital on 08/01/2023 and was diagnosed with small bowel obstruction. Patient developed acute renal failure, for which he underwent placement of the dialysis catheter on 08/10/2023. After dialysis, his renal functions improved, and that that dialysis catheter was removed on 08/22/2023. Patient also underwent robotic assisted laparoscopic lysis of adhesions with decompressive enterostomy. He also had sepsis, which is being treated. This morning patient choked on the pill and was not responding very well. Speech therapy was consulted who are recommending patient to receive only ice chips. Chest x-ray concern for possible aspiration. His bowels have improved and kidney function is also improved. Now he has been diagnosed with hypothyroidism. Blood test shows sodium 135 potassium 4.2, BUN 29 creatinine 1.26. Hemoglobin 8.0, hepatic panel normal, TSH 36.9, free T40.76. Per patient's family, patient has history of dementia for at least couple years with memory loss, confusion. He has some good and bad days. He cannot deal with the numbers. He is good with the friends and family and their names. Last time he was admitted in May or June, he was wandering on the floor. On this admission, he has been more confused, it is pulling off the catheters and lines. At home also he sometimes gets agitated in the evening but does not get physically aggressive. He lives by himself, but since recent hospitalization, he has been having home health aide 5 hours/day which helps. Patient has never smoked, does not drink alcohol, denies diabetes. He does have hypertension. Patient's daughter mentions that he can mostly take care of daily activities, he knows his family and friends, when he needs to go to the grocery or requires his prescription medications. Patient is currently on Aricept 10 mg daily. He used to be on Namenda as per previous records from March 2023, but at present he is not on Namenda. Patient has history of Bradley's palsy as well. No previous history of seizures. Patient is currently on Xanax 1 mg every 6 hours, meropenem, metoprolol 5 mg IV push every 4 hours, potassium, zinc, Eraxis Review of Systems Patient not able to provide any review of systems. Patient's daughter Kunal was present, who also does not know much of review of systems like fever chills, headache or dizziness. I asked patient clearly if he has headache and he denies. ROS unobtainable: due to mental status Constitutional: Denies chills, Denies fever Eyes: bilateral blurred vision (glasses), denies diplopia Ears: bilateral: decreased hearing, deny: earache Ears, nose, mouth and throat: Denies headache, Denies sore throat Cardiovascular: Reports shortness of breath Gastrointestinal: Reports abdominal pain, Reports change in bowel habits, Denies diarrhea, Denies nausea, Denies vomiting Past Medical History Past Medical History: Coronary Artery Disease (CAD), COPD, Dementia, GERD/Reflu x, Hyperlipidemia, Hypertension Additional Past Medical History / Comment(s): dysphagia, states some memory loss History of Any Multi-Drug Resistant Organisms: None Reported Past Surgical History: Cholecystectomy, Heart Catheterization With Stent Additional Past Surgical History / Comment(s): corbin cataracts, EGD Past Anesthesia/Blood Transfusion Reactions: No Reported Reaction Date of Last Stent Placement:: unknown Past Psychological History: No Psychological Hx Reported Smoking Status: Never smoker Past Alcohol Use History: None Reported Past Drug Use History: None Reported - Past Family History Mother Family Medical History: Cancer Father Family Medical History: Cancer Medications and Allergies Home Medications Medication Instructions Recorded Confirmed Type Metoprolol Tartrate 25 mg PO BID 05/27/17 08/01/23 History Montelukast [Singulair] 10 mg PO DAILY 05/27/17 08/01/23 History Theophylline 12 Hour [Silvio-Dur] 300 mg PO BID 05/27/17 08/01/23 History Atorvastatin [Lipitor] 80 mg PO HS 11/22/19 08/01/23 History Famotidine [Pepcid] 20 mg PO BID 11/22/19 08/01/23 History Levothyroxine Sodium [Synthroid] 50 mcg PO DAILY 11/22/19 08/01/23 History Donepezil [Aricept] 10 mg PO HS 03/15/23 08/01/23 History Losartan [Cozaar] 50 mg PO DAILY 03/15/23 08/01/23 History Memantine [Namenda] 10 mg PO BID 03/15/23 08/01/23 History Budesonide-Formot 160-4.5 Mcg 2 puff INHALATION RT-BID #1 each 03/19/23 08/01/23 Rx [Symbicort 160-4.5 Mcg Inhaler] Ipratropium-Albuterol Nebulize 3 ml INHALATION RT-QID #120 each 03/19/23 08/01/23 Rx [Duoneb 0.5 mg-3 mg/3 ml Soln] Albuterol Sulfate [Albuterol 2 puff INHALATION RT-QID PRN 04/08/23 08/01/23 History Sulfate Hfa] Aspirin EC [Ecotrin Low Dose] 81 mg PO DAILY 08/01/23 08/01/23 History Triamcinolone 0.1% Cream [Kenalog 1 applicatio TOPICAL BID 08/01/23 08/01/23 History 0.1% Cream] Allergies Allergy/AdvReac Type Severity Reaction Status Date / Time ciprofloxacin [From Cipro] Allergy Rash/Hives Verified 08/01/23 11:53 levofloxacin [From Levaquin] Allergy Unknown Verified 08/01/23 11:53 rofecoxib Allergy Unknown Verified 08/01/23 11:53 sulfamethoxazole Allergy Swelling Verified 08/01/23 11:53 [From Bactrim] trimethoprim [From Bactrim] Allergy Swelling Verified 08/01/23 11:53 fluconazole [From Diflucan] AdvReac DIzziness Verified 08/01/23 11:53 & Giddiness Physical Examination - Vital Signs Vital Signs: Vital Signs Temp Pulse Pulse Resp BP Pulse Ox 08/26/23 15:29 98 F 95 18 164/89 95 08/26/23 13:15 98 08/26/23 13:05 98 08/26/23 11:30 97.6 F 98 20 169/85 96 08/26/23 10:07 96 08/26/23 09:51 100 08/26/23 08:00 98.7 F 95 22 178/84 95 08/26/23 04:00 97.7 F 100 16 179/90 97 08/26/23 00:00 98 F 103 H 16 160/79 98 08/25/23 20:05 99 08/25/23 20:00 16 04/18/24 19:52 92 08/25/23 19:10 98.3 F 93 16 184/82 97 08/25/23 17:00 17 08/25/23 16:58 97.5 F L 90 17 162/60 100 08/25/23 15:58 96 08/25/23 15:47 98 Intake and Output 08/26/23 08/26/23 08/26/23 06:59 14:59 22:59 Intake Total 0 0 Output Total 1700 675 375 Balance -1700 -675 -375 Intake: Oral 0 0 Output: Urine 1700 675 375 Other: Voiding Method Indwelling Catheter Indwelling Catheter Weight 73 kg 73 kg Patient is an elderly male, who appears obviously encephalopathic. Patient is very groggy, somnolent, keeping his eyes closed. Patient not speaking much. He is mumbling slightly. He could not tell me his name. I asked once her daughter's name present in the room. He could not tell it but when she gave him prompts, he was able to recognize it correctly. Speech and language functions cannot be assessed because of grogginess. Attention, concentration is severely limited and fund of knowledge is very limited. On cranial nerve examination, pupils are equal, round and reacting to light, gaze is midline. No obvious nystagmus. Patient did not cooperate with visual field testing. Patient's head is somewhat rotated to the right side and down on the edge of the pillow. Therefore his face is sagging down. Cannot assess for any droop. At baseline, he does have some facial asymmetry from previous Bradley's palsy. He would not protrude his tongue. Hearing cannot be assessed. Lower cranial nerves cannot be assessed due to mental status. On muscle strength testing, patient did not cooperate with the testing. He would not hold his arms up. He brings it down fairly rapidly, but equally bilaterally. He did not squeeze, or follow directions. He did move his legs bilaterally equally on command. Deep tendon reflexes are symmetric biceps 1+, brachioradialis 0, knees trace, plantars are flat. Sensory to touch cannot be assessed, but he does move his arms equally to noxious stimulus. Cerebellar function cannot be tested because patient did not cooperate. Tone and bulk of muscles normal. Gait deferred.. On general examination, there is no carotid bruit or murmur, S1-S2 audible. Chest is clear on consultation. Abdomen is soft nontender. No organomegaly, bowel sounds present. Peripheral pulses are present. No peripheral edema. Results - Laboratory Findings CBC and BMP: 08/25/23 10:47 08/26/23 11:14 Abnormal Lab Findings: Abnormal Labs 08/01/23 08/01/23 08/01/23 05:40 05:40 05:40 WBC 11.3 H RBC 4.08 L Hgb 12.2 L Hct 36.1 L MCHC RDW Plt Count MPV Neutrophils # 8.5 H Lymphocytes # Monocytes # Eosinophils # Retic Count Sodium Potassium Chloride 109 H Carbon Dioxide 21 L BUN 29 H Creatinine 1.59 H Est GFR (CKD-EPI) Glucose POC Glucose (mg/dL) Plasma Lactic Acid Lawson 2.2 H* Calcium Phosphorus Iron TIBC % Saturation Transferrin AST Alkaline Phosphatase C-Reactive Protein Total Protein Total Protein (PEP) Albumin Albumin (PEP) Prealbumin Trasw-3-Sebuezncg Triglycerides Amylase 111 H Lipase 352 H Procalcitonin TSH Free T4 Urine Protein Urine Ketones Urine Blood Ur Leukocyte Esterase Urine RBC Urine WBC Amorphous Sediment Urine Bacteria Free [place] LC, Quant Free Lambda LC, Quant 08/02/23 08/02/23 08/02/23 06:37 06:37 10:41 WBC RBC 3.84 L Hgb 11.1 L Hct 33.9 L MCHC RDW 14.6 H Plt Count MPV 8.9 L Neutrophils # Lymphocytes # Monocytes # Eosinophils # Retic Count Sodium Potassium Chloride 109 H Carbon Dioxide 21 L BUN 22 H Creatinine Est GFR (CKD-EPI) 49 L Glucose POC Glucose (mg/dL) Plasma Lactic Acid Lawson Calcium Phosphorus Iron TIBC % Saturation Transferrin AST Alkaline Phosphatase C-Reactive Protein Total Protein 5.4 L Total Protein (PEP) Albumin 3.4 L Albumin (PEP) Prealbumin Syyah-4-Eqepmxlzl Triglycerides Amylase Lipase Procalcitonin TSH Free T4 Urine Protein Urine Ketones Urine Blood Ur Leukocyte Esterase Urine RBC Urine WBC Amorphous Sediment Urine Bacteria Free [place] LC, Quant Free Lambda LC, Quant 08/03/23 08/04/23 08/04/23 17:09 07:15 07:15 WBC 15.5 H RBC 4.23 L 4.38 L Hgb 12.3 L 12.6 L Hct 37.6 L 37.9 L MCHC RDW 14.6 H Plt Count MPV 9.2 L Neutrophils # 13.8 H Lymphocytes # 0.7 L 0.54 L Monocytes # 1.06 H Eosinophils # 0.01 L Retic Count Sodium Potassium Chloride Carbon Dioxide 14 L BUN 34 H Creatinine 3.11 H Est GFR (CKD-EPI) Glucose POC Glucose (mg/dL) Plasma Lactic Acid Lawson Calcium Phosphorus Iron TIBC % Saturation Transferrin AST Alkaline Phosphatase C-Reactive Protein Total Protein Total Protein (PEP) Albumin Albumin (PEP) Prealbumin Ymtid-5-Yyciihypm Triglycerides Amylase Lipase Procalcitonin TSH Free T4 Urine Protein Urine Ketones Urine Blood Ur Leukocyte Esterase Urine RBC Urine WBC Amorphous Sediment Urine Bacteria Free [place] LC, Quant Free Lambda LC, Quant 08/05/23 08/05/23 08/05/23 11:42 11:42 17:06 WBC RBC 3.97 L Hgb 11.3 L Hct 37.1 L MCHC 30.6 L RDW Plt Count MPV Neutrophils # 8.4 H Lymphocytes # 0.5 L Monocytes # Eosinophils # Retic Count Sodium Potassium Chloride 108 H Carbon Dioxide 13 L BUN 69 H Creatinine 5.60 H Est GFR (CKD-EPI) Glucose POC Glucose (mg/dL) Plasma Lactic Acid Lawson Calcium 8.3 L Phosphorus Iron TIBC % Saturation Transferrin AST Alkaline Phosphatase C-Reactive Protein Total Protein Total Protein (PEP) Albumin Albumin (PEP) Prealbumin Zcskj-9-Yudkbxzqm Triglycerides Amylase Lipase Procalcitonin TSH Free T4 Urine Protein 2+ H Urine Ketones Trace H Urine Blood Moderate H Ur Leukocyte Esterase Moderate H Urine RBC 28 H Urine WBC 54 H Amorphous Sediment Occasional H Urine Bacteria Rare H Free [place] LC, Quant Free Lambda LC, Quant 08/06/23 08/06/23 08/06/23 00:02 06:14 10:49 WBC RBC Hgb Hct MCHC RDW Plt Count MPV Neutrophils # Lymphocytes # Monocytes # Eosinophils # Retic Count Sodium Potassium Chloride Carbon Dioxide BUN Creatinine Est GFR (CKD-EPI) Glucose POC Glucose (mg/dL) 138 H 121 H Plasma Lactic Acid Lawson Calcium Phosphorus 5.8 H Iron TIBC % Saturation Transferrin AST Alkaline Phosphatase C-Reactive Protein Total Protein Total Protein (PEP) Albumin Albumin (PEP) Prealbumin Lllag-8-Tljtatzzk Triglycerides Amylase Lipase Procalcitonin TSH Free T4 Urine Protein Urine Ketones Urine Blood Ur Leukocyte Esterase Urine RBC Urine WBC Amorphous Sediment Urine Bacteria Free [place] LC, Quant Free Lambda LC, Quant 08/06/23 08/06/23 08/06/23 10:49 10:49 11:50 WBC RBC 3.67 L Hgb 10.4 L Hct 33.2 L MCHC RDW Plt Count MPV Neutrophils # Lymphocytes # 0.4 L Monocytes # Eosinophils # Retic Count Sodium Potassium Chloride Carbon Dioxide BUN 85 H Creatinine 6.08 H Est GFR (CKD-EPI) Glucose 128 H POC Glucose (mg/dL) 127 H Plasma Lactic Acid Lawson Calcium 7.5 L Phosphorus Iron TIBC % Saturation Transferrin AST Alkaline Phosphatase C-Reactive Protein Total Protein Total Protein (PEP) Albumin Albumin (PEP) Prealbumin Kebiw-8-Ttxznimox Triglycerides Amylase Lipase Procalcitonin TSH Free T4 Urine Protein Urine Ketones Urine Blood Ur Leukocyte Esterase Urine RBC Urine WBC Amorphous Sediment Urine Bacteria Free [place] LC, Quant Free Lambda LC, Quant 08/06/23 08/07/23 08/08/23 16:42 09:10 07:11 WBC RBC 3.96 L Hgb 11.4 L Hct 36.0 L MCHC RDW Plt Count MPV Neutrophils # Lymphocytes # 0.7 L Monocytes # Eosinophils # Retic Count Sodium Potassium Chloride Carbon Dioxide BUN 89 H Creatinine 6.38 H Est GFR (CKD-EPI) Glucose POC Glucose (mg/dL) 118 H Plasma Lactic Acid Lawson Calcium 7.9 L Phosphorus 5.5 H Iron TIBC % Saturation Transferrin AST Alkaline Phosphatase C-Reactive Protein Total Protein Total Protein (PEP) Albumin Albumin (PEP) Prealbumin Olgqh-3-Iwdesvmvv Triglycerides Amylase Lipase Procalcitonin TSH Free T4 Urine Protein Urine Ketones Urine Blood Ur Leukocyte Esterase Urine RBC Urine WBC Amorphous Sediment Urine Bacteria Free [place] LC, Quant Free Lambda LC, Quant 08/08/23 08/09/23 08/09/23 07:11 12:10 12:10 WBC RBC 3.75 L Hgb 10.8 L Hct 33.9 L MCHC RDW Plt Count MPV Neutrophils # 8.0 H Lymphocytes # 0.6 L Monocytes # Eosinophils # Retic Count Sodium Potassium Chloride 110 H Carbon Dioxide BUN 93 H 87 H Creatinine 5.62 H 5.53 H Est GFR (CKD-EPI) Glucose 116 H POC Glucose (mg/dL) Plasma Lactic Acid Lawson Calcium 8.0 L 7.3 L Phosphorus 5.4 H Iron TIBC % Saturation Transferrin AST Alkaline Phosphatase C-Reactive Protein Total Protein 4.3 L Total Protein (PEP) Albumin 2.0 L Albumin (PEP) Prealbumin Ycjwk-0-Dsolzximq Triglycerides Amylase Lipase Procalcitonin TSH Free T4 Urine Protein Urine Ketones Urine Blood Ur Leukocyte Esterase Urine RBC Urine WBC Amorphous Sediment Urine Bacteria Free [place] LC, Quant Free Lambda LC, Quant 08/09/23 08/09/23 08/10/23 17:47 23:50 06:12 WBC RBC Hgb Hct MCHC RDW Plt Count MPV Neutrophils # Lymphocytes # Monocytes # Eosinophils # Retic Count Sodium Potassium Chloride Carbon Dioxide BUN Creatinine Est GFR (CKD-EPI) Glucose POC Glucose (mg/dL) 159 H 137 H 143 H Plasma Lactic Acid Lawson Calcium Phosphorus Iron TIBC % Saturation Transferrin AST Alkaline Phosphatase C-Reactive Protein Total Protein Total Protein (PEP) Albumin Albumin (PEP) Prealbumin Hzydw-7-Lljpbbvrk Triglycerides Amylase Lipase Procalcitonin TSH Free T4 Urine Protein Urine Ketones Urine Blood Ur Leukocyte Esterase Urine RBC Urine WBC Amorphous Sediment Urine Bacteria Free [place] LC, Quant Free Lambda LC, Quant 08/10/23 08/10/23 08/10/23 09:28 09:28 11:55 WBC RBC 3.68 L Hgb 10.7 L Hct 33.8 L MCHC RDW Plt Count MPV Neutrophils # 8.4 H Lymphocytes # 0.8 L Monocytes # Eosinophils # Retic Count Sodium Potassium Chloride Carbon Dioxide 20 L BUN 92 H Creatinine 5.60 H Est GFR (CKD-EPI) Glucose 123 H POC Glucose (mg/dL) 178 H Plasma Lactic Acid Lawson Calcium 7.8 L Phosphorus 5.2 H Iron TIBC % Saturation Transferrin AST Alkaline Phosphatase C-Reactive Protein Total Protein Total Protein (PEP) Albumin Albumin (PEP) Prealbumin Ksxfl-2-Lwcxcvcfz Triglycerides Amylase Lipase Procalcitonin TSH Free T4 Urine Protein Urine Ketones Urine Blood Ur Leukocyte Esterase Urine RBC Urine WBC Amorphous Sediment Urine Bacteria Free [place] LC, Quant Free Lambda LC, Quant 08/10/23 08/11/23 08/11/23 17:53 00:23 12:03 WBC RBC Hgb Hct MCHC RDW Plt Count MPV Neutrophils # Lymphocytes # Monocytes # Eosinophils # Retic Count Sodium Potassium Chloride Carbon Dioxide BUN Creatinine Est GFR (CKD-EPI) Glucose POC Glucose (mg/dL) 131 H 126 H 165 H Plasma Lactic Acid Lawson Calcium Phosphorus Iron TIBC % Saturation Transferrin AST Alkaline Phosphatase C-Reactive Protein Total Protein Total Protein (PEP) Albumin Albumin (PEP) Prealbumin Ugrem-7-Rlzrrbzoj Triglycerides Amylase Lipase Procalcitonin TSH Free T4 Urine Protein Urine Ketones Urine Blood Ur Leukocyte Esterase Urine RBC Urine WBC Amorphous Sediment Urine Bacteria Free [place] LC, Quant Free Lambda LC, Quant 08/11/23 08/11/23 08/11/23 14:54 18:29 23:55 WBC RBC Hgb Hct MCHC RDW Plt Count MPV Neutrophils # Lymphocytes # Monocytes # Eosinophils # Retic Count Sodium 135 L Potassium Chloride Carbon Dioxide BUN 27 H Creatinine 2.00 H Est GFR (CKD-EPI) Glucose POC Glucose (mg/dL) 134 H 129 H Plasma Lactic Acid Lawson Calcium 7.8 L Phosphorus 2.0 L Iron TIBC % Saturation Transferrin AST Alkaline Phosphatase C-Reactive Protein Total Protein Total Protein (PEP) Albumin Albumin (PEP) Prealbumin Usbwi-3-Hoanutpsd Triglycerides Amylase Lipase Procalcitonin TSH Free T4 Urine Protein Urine Ketones Urine Blood Ur Leukocyte Esterase Urine RBC Urine WBC Amorphous Sediment Urine Bacteria Free [place] LC, Quant Free Lambda LC, Quant 08/12/23 08/12/23 08/12/23 06:20 10:05 11:47 WBC RBC Hgb Hct MCHC RDW Plt Count MPV Neutrophils # Lymphocytes # Monocytes # Eosinophils # Retic Count Sodium 133 L Potassium 3.2 L Chloride Carbon Dioxide BUN 37 H Creatinine 2.53 H Est GFR (CKD-EPI) Glucose 109 H POC Glucose (mg/dL) 128 H 128 H Plasma Lactic Acid Lawson Calcium 7.5 L Phosphorus Iron TIBC % Saturation Transferrin AST Alkaline Phosphatase C-Reactive Protein Total Protein 4.2 L Total Protein (PEP) Albumin 1.9 L Albumin (PEP) Prealbumin Dzszu-7-Fmgzjblwu Triglycerides Amylase Lipase Procalcitonin TSH Free T4 Urine Protein Urine Ketones Urine Blood Ur Leukocyte Esterase Urine RBC Urine WBC Amorphous Sediment Urine Bacteria Free [place] LC, Quant Free Lambda LC, Quant 08/12/23 08/13/23 08/13/23 18:00 00:03 06:14 WBC RBC Hgb Hct MCHC RDW Plt Count MPV Neutrophils # Lymphocytes # Monocytes # Eosinophils # Retic Count Sodium Potassium Chloride Carbon Dioxide BUN Creatinine Est GFR (CKD-EPI) Glucose POC Glucose (mg/dL) 117 H 121 H 112 H Plasma Lactic Acid Lawson Calcium Phosphorus Iron TIBC % Saturation Transferrin AST Alkaline Phosphatase C-Reactive Protein Total Protein Total Protein (PEP) Albumin Albumin (PEP) Prealbumin Yxhck-5-Mhqjkncnc Triglycerides Amylase Lipase Procalcitonin TSH Free T4 Urine Protein Urine Ketones Urine Blood Ur Leukocyte Esterase Urine RBC Urine WBC Amorphous Sediment Urine Bacteria Free [place] LC, Quant Free Lambda LC, Quant 08/13/23 08/13/23 08/13/23 10:31 11:47 18:11 WBC RBC Hgb Hct MCHC RDW Plt Count MPV Neutrophils # Lymphocytes # Monocytes # Eosinophils # Retic Count Sodium 131 L Potassium 3.3 L Chloride Carbon Dioxide BUN 23 H Creatinine 1.96 H Est GFR (CKD-EPI) Glucose POC Glucose (mg/dL) 115 H 117 H Plasma Lactic Acid Lawson Calcium 7.5 L Phosphorus Iron TIBC % Saturation Transferrin AST Alkaline Phosphatase 179 H C-Reactive Protein Total Protein 4.3 L Total Protein (PEP) Albumin 1.9 L Albumin (PEP) Prealbumin Uqkdi-4-Xegttcsup Triglycerides Amylase Lipase Procalcitonin TSH Free T4 Urine Protein Urine Ketones Urine Blood Ur Leukocyte Esterase Urine RBC Urine WBC Amorphous Sediment Urine Bacteria Free [place] LC, Quant Free Lambda LC, Quant 08/14/23 08/14/23 08/14/23 00:07 05:39 05:39 WBC RBC Hgb Hct MCHC RDW Plt Count MPV Neutrophils # Lymphocytes # Monocytes # Eosinophils # Retic Count Sodium 130 L Potassium Chloride Carbon Dioxide BUN 28 H Creatinine 2.29 H Est GFR (CKD-EPI) Glucose POC Glucose (mg/dL) 135 H Plasma Lactic Acid Lawson Calcium 7.5 L Phosphorus Iron TIBC % Saturation Transferrin AST Alkaline Phosphatase 212 H C-Reactive Protein 6.5 H Total Protein 4.4 L Total Protein (PEP) Albumin 1.9 L Albumin (PEP) Prealbumin Joway-4-Sobgxmmnv Triglycerides Amylase Lipase Procalcitonin TSH Free T4 Urine Protein Urine Ketones Urine Blood Ur Leukocyte Esterase Urine RBC Urine WBC Amorphous Sediment Urine Bacteria Free [place] LC, Quant Free Lambda LC, Quant 08/14/23 08/14/23 08/15/23 05:39 17:46 06:02 WBC 11.4 H RBC 3.35 L Hgb 9.5 L Hct 30.0 L MCHC RDW Plt Count MPV Neutrophils # 8.9 H Lymphocytes # Monocytes # Eosinophils # Retic Count Sodium Potassium Chloride Carbon Dioxide BUN Creatinine Est GFR (CKD-EPI) Glucose POC Glucose (mg/dL) 124 H 117 H Plasma Lactic Acid Lawson Calcium Phosphorus Iron TIBC % Saturation Transferrin AST Alkaline Phosphatase C-Reactive Protein Total Protein Total Protein (PEP) Albumin Albumin (PEP) Prealbumin Mzaof-1-Npaclwzwe Triglycerides Amylase Lipase Procalcitonin TSH Free T4 Urine Protein Urine Ketones Urine Blood Ur Leukocyte Esterase Urine RBC Urine WBC Amorphous Sediment Urine Bacteria Free [place] LC, Quant Free Lambda LC, Quant 08/15/23 08/15/23 08/15/23 08:16 08:16 08:16 WBC 13.9 H RBC 3.20 L Hgb 9.1 L Hct 29.0 L MCHC RDW Plt Count 453 H MPV Neutrophils # 11.1 H Lymphocytes # Monocytes # 1.1 H Eosinophils # Retic Count Sodium 130 L Potassium Chloride Carbon Dioxide BUN 32 H Creatinine 2.60 H Est GFR (CKD-EPI) Glucose 104 H POC Glucose (mg/dL) Plasma Lactic Acid Lawson Calcium 7.7 L Phosphorus Iron TIBC % Saturation Transferrin AST Alkaline Phosphatase C-Reactive Protein Total Protein Total Protein (PEP) Albumin Albumin (PEP) Prealbumin Llxth-8-Fkwgyzowh Triglycerides Amylase Lipase Procalcitonin TSH Free T4 Urine Protein Urine Ketones Urine Blood Ur Leukocyte Esterase Urine RBC Urine WBC Amorphous Sediment Urine Bacteria Free [place] LC, Quant 11.59 H Free Lambda LC, Quant 12.81 H 08/15/23 08/15/23 08/15/23 08:16 12:03 23:59 WBC RBC Hgb Hct MCHC RDW Plt Count MPV Neutrophils # Lymphocytes # Monocytes # Eosinophils # Retic Count Sodium Potassium Chloride Carbon Dioxide BUN Creatinine Est GFR (CKD-EPI) Glucose POC Glucose (mg/dL) 170 H 126 H Plasma Lactic Acid Lawson Calcium Phosphorus Iron 12 L TIBC 175 L % Saturation 6.86 L Transferrin 125.0 L AST Alkaline Phosphatase C-Reactive Protein Total Protein Total Protein (PEP) Albumin Albumin (PEP) Prealbumin Bblyq-4-Ssbkflztz Triglycerides Amylase Lipase Procalcitonin TSH Free T4 Urine Protein Urine Ketones Urine Blood Ur Leukocyte Esterase Urine RBC Urine WBC Amorphous Sediment Urine Bacteria Free [place] LC, Quant Free Lambda LC, Quant 08/16/23 08/16/23 08/16/23 06:05 10:05 10:05 WBC 15.4 H RBC 2.88 L Hgb 8.3 L Hct 25.8 L MCHC RDW Plt Count 477 H MPV Neutrophils # 12.4 H Lymphocytes # Monocytes # 1.1 H Eosinophils # Retic Count Sodium 130 L Potassium Chloride Carbon Dioxide 20 L BUN 35 H Creatinine 2.57 H Est GFR (CKD-EPI) Glucose 107 H POC Glucose (mg/dL) 111 H Plasma Lactic Acid Lawson Calcium 7.7 L Phosphorus Iron TIBC % Saturation Transferrin AST Alkaline Phosphatase C-Reactive Protein Total Protein Total Protein (PEP) Albumin Albumin (PEP) Prealbumin 13.5 L Vswdl-3-Lqdxcsism Triglycerides 165.00 H Amylase Lipase Procalcitonin TSH Free T4 Urine Protein Urine Ketones Urine Blood Ur Leukocyte Esterase Urine RBC Urine WBC Amorphous Sediment Urine Bacteria Free [place] LC, Quant Free Lambda LC, Quant 08/16/23 08/16/23 08/16/23 10:05 11:58 18:05 WBC RBC Hgb Hct MCHC RDW Plt Count MPV Neutrophils # Lymphocytes # Monocytes # Eosinophils # Retic Count Sodium Potassium Chloride Carbon Dioxide BUN Creatinine Est GFR (CKD-EPI) Glucose POC Glucose (mg/dL) 123 H 127 H Plasma Lactic Acid Lawson Calcium Phosphorus Iron TIBC % Saturation Transferrin AST Alkaline Phosphatase C-Reactive Protein Total Protein Total Protein (PEP) 4.6 L Albumin Albumin (PEP) 1.73 L Prealbumin Moijd-3-Rfxqkthbf 0.52 H Triglycerides Amylase Lipase Procalcitonin TSH Free T4 Urine Protein Urine Ketones Urine Blood Ur Leukocyte Esterase Urine RBC Urine WBC Amorphous Sediment Urine Bacteria Free [place] LC, Quant Free Lambda LC, Quant 08/17/23 08/17/23 08/17/23 08:52 08:52 12:38 WBC RBC Hgb Hct MCHC RDW Plt Count MPV Neutrophils # Lymphocytes # Monocytes # Eosinophils # Retic Count Sodium 130 L Potassium 5.6 H Chloride Carbon Dioxide 21 L BUN 37 H Creatinine 2.57 H Est GFR (CKD-EPI) Glucose 100 H POC Glucose (mg/dL) 115 H Plasma Lactic Acid Lawson Calcium 7.8 L Phosphorus Iron TIBC % Saturation Transferrin AST Alkaline Phosphatase 248 H C-Reactive Protein 8.0 H Total Protein 4.9 L Total Protein (PEP) Albumin 2.0 L Albumin (PEP) Prealbumin Smnmu-5-Omjoovjyj Triglycerides Amylase Lipase Procalcitonin 1.34 H TSH Free T4 Urine Protein Urine Ketones Urine Blood Ur Leukocyte Esterase Urine RBC Urine WBC Amorphous Sediment Urine Bacteria Free [place] LC, Quant Free Lambda LC, Quant 08/18/23 08/18/23 08/18/23 06:04 10:28 10:28 WBC 12.0 H RBC 2.71 L Hgb 7.9 L Hct 24.4 L MCHC RDW Plt Count 557 H MPV Neutrophils # 9.6 H Lymphocytes # 0.8 L Monocytes # Eosinophils # Retic Count Sodium 133 L Potassium 5.6 H Chloride Carbon Dioxide 20 L BUN 38 H Creatinine 2.38 H Est GFR (CKD-EPI) Glucose 108 H POC Glucose (mg/dL) 112 H Plasma Lactic Acid Lawson Calcium 7.7 L Phosphorus 4.9 H Iron TIBC % Saturation Transferrin AST Alkaline Phosphatase 235 H C-Reactive Protein Total Protein 4.8 L Total Protein (PEP) Albumin 1.9 L Albumin (PEP) Prealbumin Wncpj-6-Evlhbqhnd Triglycerides Amylase Lipase Procalcitonin TSH Free T4 Urine Protein Urine Ketones Urine Blood Ur Leukocyte Esterase Urine RBC Urine WBC Amorphous Sediment Urine Bacteria Free [place] LC, Quant Free Lambda LC, Quant 08/18/23 08/18/23 08/19/23 11:27 17:35 00:10 WBC RBC Hgb Hct MCHC RDW Plt Count MPV Neutrophils # Lymphocytes # Monocytes # Eosinophils # Retic Count Sodium Potassium 5.3 H Chloride Carbon Dioxide BUN Creatinine Est GFR (CKD-EPI) Glucose POC Glucose (mg/dL) 114 H 114 H Plasma Lactic Acid Lawson Calcium Phosphorus Iron TIBC % Saturation Transferrin AST Alkaline Phosphatase C-Reactive Protein Total Protein Total Protein (PEP) Albumin Albumin (PEP) Prealbumin Tkcpv-8-Dlmtsnnlc Triglycerides Amylase Lipase Procalcitonin TSH Free T4 Urine Protein Urine Ketones Urine Blood Ur Leukocyte Esterase Urine RBC Urine WBC Amorphous Sediment Urine Bacteria Free [place] LC, Quant Free Lambda LC, Quant 08/19/23 08/19/23 08/19/23 06:15 06:55 12:01 WBC RBC Hgb Hct MCHC RDW Plt Count MPV Neutrophils # Lymphocytes # Monocytes # Eosinophils # Retic Count Sodium 133 L Potassium 5.3 H Chloride Carbon Dioxide BUN 39 H Creatinine 2.12 H Est GFR (CKD-EPI) Glucose 106 H POC Glucose (mg/dL) 114 H 114 H Plasma Lactic Acid Lawson Calcium 7.8 L Phosphorus Iron TIBC % Saturation Transferrin AST Alkaline Phosphatase 264 H C-Reactive Protein Total Protein 4.9 L Total Protein (PEP) Albumin 2.0 L Albumin (PEP) Prealbumin Crajl-5-Gcjdgvxfi Triglycerides Amylase Lipase Procalcitonin TSH Free T4 Urine Protein Urine Ketones Urine Blood Ur Leukocyte Esterase Urine RBC Urine WBC Amorphous Sediment Urine Bacteria Free [place] LC, Quant Free Lambda LC, Quant 08/20/23 08/20/23 08/21/23 08:37 08:37 00:01 WBC 14.2 H RBC 3.08 L Hgb 8.7 L Hct 27.4 L MCHC RDW Plt Count 831 H MPV Neutrophils # 11.3 H Lymphocytes # Monocytes # Eosinophils # Retic Count Sodium 135 L Potassium 5.2 H Chloride 109 H Carbon Dioxide BUN 39 H Creatinine 2.05 H Est GFR (CKD-EPI) Glucose POC Glucose (mg/dL) 113 H Plasma Lactic Acid Lawson Calcium 8.3 L Phosphorus Iron TIBC % Saturation Transferrin AST 80 H Alkaline Phosphatase 496 H C-Reactive Protein Total Protein 5.5 L Total Protein (PEP) Albumin 2.4 L Albumin (PEP) Prealbumin Ysxia-7-Mzrltjcqc Triglycerides Amylase Lipase Procalcitonin TSH Free T4 Urine Protein Urine Ketones Urine Blood Ur Leukocyte Esterase Urine RBC Urine WBC Amorphous Sediment Urine Bacteria Free [place] LC, Quant Free Lambda LC, Quant 08/21/23 08/22/23 08/22/23 09:21 05:46 08:24 WBC RBC 2.76 L Hgb 7.8 L Hct 24.9 L MCHC RDW Plt Count 850 H MPV Neutrophils # Lymphocytes # Monocytes # Eosinophils # 0.8 H Retic Count 3.2 H Sodium 135 L 135 L Potassium Chloride 109 H 110 H Carbon Dioxide 18 L BUN 39 H 39 H Creatinine 1.98 H 1.76 H Est GFR (CKD-EPI) Glucose 103 H POC Glucose (mg/dL) Plasma Lactic Acid Lawson Calcium 7.9 L 8.1 L Phosphorus Iron TIBC % Saturation Transferrin AST Alkaline Phosphatase 356 H 372 H C-Reactive Protein Total Protein 4.9 L 5.4 L Total Protein (PEP) Albumin 2.0 L 2.2 L Albumin (PEP) Prealbumin Ndxwh-4-Qbtockqvp Triglycerides Amylase Lipase Procalcitonin TSH Free T4 Urine Protein Urine Ketones Urine Blood Ur Leukocyte Esterase Urine RBC Urine WBC Amorphous Sediment Urine Bacteria Free [place] LC, Quant Free Lambda LC, Quant 08/22/23 08/23/23 08/23/23 08:24 10:23 10:23 WBC RBC Hgb Hct MCHC RDW Plt Count MPV Neutrophils # Lymphocytes # Monocytes # Eosinophils # Retic Count Sodium 135 L Potassium Chloride 109 H Carbon Dioxide BUN 32 H Creatinine 1.62 H Est GFR (CKD-EPI) Glucose POC Glucose (mg/dL) Plasma Lactic Acid Lawson Calcium 8.0 L Phosphorus Iron 34 L TIBC 175 L % Saturation Transferrin 125.0 L AST Alkaline Phosphatase C-Reactive Protein Total Protein Total Protein (PEP) Albumin Albumin (PEP) Prealbumin Pwdgr-2-Zhebmnoit Triglycerides 245.00 H Amylase Lipase Procalcitonin TSH Free T4 Urine Protein Urine Ketones Urine Blood Ur Leukocyte Esterase Urine RBC Urine WBC Amorphous Sediment Urine Bacteria Free [place] LC, Quant Free Lambda LC, Quant 08/23/23 08/23/23 08/24/23 12:10 23:58 06:08 WBC RBC Hgb Hct MCHC RDW Plt Count MPV Neutrophils # Lymphocytes # Monocytes # Eosinophils # Retic Count Sodium Potassium Chloride Carbon Dioxide BUN Creatinine Est GFR (CKD-EPI) Glucose POC Glucose (mg/dL) 121 H 126 H 113 H Plasma Lactic Acid Lawson Calcium Phosphorus Iron TIBC % Saturation Transferrin AST Alkaline Phosphatase C-Reactive Protein Total Protein Total Protein (PEP) Albumin Albumin (PEP) Prealbumin Hrkdi-5-Rjhwwzuxx Triglycerides Amylase Lipase Procalcitonin TSH Free T4 Urine Protein Urine Ketones Urine Blood Ur Leukocyte Esterase Urine RBC Urine WBC Amorphous Sediment Urine Bacteria Free [place] LC, Quant Free Lambda LC, Quant 08/24/23 08/24/23 08/24/23 09:53 11:27 18:32 WBC RBC Hgb Hct MCHC RDW Plt Count MPV Neutrophils # Lymphocytes # Monocytes # Eosinophils # Retic Count Sodium 135 L Potassium Chloride Carbon Dioxide BUN 31 H Creatinine 1.56 H Est GFR (CKD-EPI) Glucose POC Glucose (mg/dL) 113 H 121 H Plasma Lactic Acid Lawson Calcium 8.1 L Phosphorus Iron TIBC % Saturation Transferrin AST Alkaline Phosphatase C-Reactive Protein Total Protein Total Protein (PEP) Albumin Albumin (PEP) Prealbumin Tdsng-1-Obasaojtt Triglycerides Amylase Lipase Procalcitonin TSH Free T4 Urine Protein Urine Ketones Urine Blood Ur Leukocyte Esterase Urine RBC Urine WBC Amorphous Sediment Urine Bacteria Free [place] LC, Quant Free Lambda LC, Quant 08/25/23 08/25/23 08/25/23 00:08 10:47 10:47 WBC RBC 2.81 L Hgb 8.0 L Hct 25.2 L MCHC RDW Plt Count 840 H MPV Neutrophils # Lymphocytes # Monocytes # Eosinophils # 0.9 H Retic Count Sodium Potassium Chloride 108 H Carbon Dioxide BUN 27 H Creatinine 1.29 H Est GFR (CKD-EPI) Glucose POC Glucose (mg/dL) 118 H Plasma Lactic Acid Lawson Calcium 8.0 L Phosphorus Iron TIBC % Saturation Transferrin AST Alkaline Phosphatase 252 H C-Reactive Protein Total Protein 5.5 L Total Protein (PEP) Albumin 2.3 L Albumin (PEP) Prealbumin 15.2 L Dzbwh-0-Kxkbfinnn Triglycerides Amylase Lipase Procalcitonin TSH Free T4 Urine Protein Urine Ketones Urine Blood Ur Leukocyte Esterase Urine RBC Urine WBC Amorphous Sediment Urine Bacteria Free [place] LC, Quant Free Lambda LC, Quant 08/25/23 08/26/23 08/26/23 17:49 06:04 11:14 WBC RBC Hgb Hct MCHC RDW Plt Count MPV Neutrophils # Lymphocytes # Monocytes # Eosinophils # Retic Count Sodium 135 L Potassium Chloride Carbon Dioxide BUN 29 H Creatinine 1.26 H Est GFR (CKD-EPI) Glucose 107 H POC Glucose (mg/dL) 112 H Plasma Lactic Acid Lawson Calcium Phosphorus Iron TIBC % Saturation Transferrin AST Alkaline Phosphatase C-Reactive Protein Total Protein Total Protein (PEP) Albumin Albumin (PEP) Prealbumin Mehyi-0-Ydjytneys Triglycerides Amylase Lipase Procalcitonin TSH 36.900 H Free T4 0.76 L Urine Protein Urine Ketones Urine Blood Ur Leukocyte Esterase Urine RBC Urine WBC Amorphous Sediment Urine Bacteria Free [place] LC, Quant Free Lambda LC, Quant Assessment and Plan Assessment: * Altered mental status, likely due to metabolic encephalopathy. Patient has prolonged hospitalization, likely resulting in encephalopathy, on top of his baseline moderate dementia. Reasons of encephalopathy multifactorial as mentioned below. * Dementia, at least moderate degree. This probably has got worse with recent hospitalization. * Small bowel obstruction, status post robotic assisted da Artie laparoscopic with lysis of adhesions and decompressive antrostomy. * Recent acute renal failure, requiring dialysis. Renal functions improved. * Hypothyroidism * Moderate renal insufficiency * Anemia * Worsening perihilar and bibasilar opacities per chest x-ray. * History of Bradley's palsy Plan: * Patient's dementia probably has got worse with recent prolonged hospitalization, and multiple significant medical/surgical conditions. * His mentation probably will improve, once these conditions comes under control. However typically patients with dementia gets a permanent setback from these kind of hospitalizations, and do not return to baseline level of functioning even after complete resolution of medical/surgical conditions. * Recommend resuming Aricept 10 mg, and Namenda 10 mg twice daily when medically cleared. * Patient has developed hypothyroidism, and the dose of thyroxine has been adjusted. * We will check EEG to evaluate for encephalopathy, rule out any other irritative tendency. * Patient currently on Eraxis and meropenem. ID on board. * Patient's neck appears stiff, but he denies any headache. We will hold off on lumbar puncture at this time. * Dr. Olguin will cover neurology service over the weekend. Thank you for the consult. Time with Patient: Greater than 30
[2023-08-27 04:21] LABS: Glucose,Whole Blood 118 mg/dL (70-110)
[2023-08-27] MEDS ORDERED: LEVOTHYROXINE 75 MCG TAB PO SCH (06:30)
[2023-08-27 07:45] LABS: African American GFR (CKD) 50 (>60 ml/min/1.73 sqM); Anion Gap 6 mmol/L; Blood Urea Nitrogen 29 mg/dL (9-20); Calcium 8.6 mg/dL (8.4-10.2); Carbon Dioxide 24 mmol/L (22-30); Chloride 105 mmol/L (98-107); Glucose 113 mg/dL (74-99); Non-African American GFR(CKD) 44 (>60 ml/min/1.73 sqM); Phosphorus 3.6 mg/dL (2.5-4.5); Potassium 4.3 mmol/L (3.5-5.1); Sodium 135 mmol/L (137-145)
--- NOTE | 2023-08-27 08:56 | CT ---
EXAMINATION TYPE: CT brain wo con DATE OF EXAM: 08/27/2023 COMPARISON: 03/17/2023r HISTORY: 83-year-old male Dizziness, nausea, vomiting. TECHNIQUE: Examination was done in axial plane without intravenous contrast. Coronal and sagittal r econstructions performed. CT DLP: 1125.4 mGycm Automated exposure control for dose reduction was used. FINDINGS: There is no evidence of acute intracranial hemorrhage, acute ischemic changes, mass, mass-effect, or extra-axial fluid collection. There is no effacement of cerebral sulci or basal subarachnoid cister ns. There is no midline shift. Cantu-white matter distinction is preserved. Mild to moderate generalized supratentorial volume loss. Mild prominence to the ventricular system li alexander due to central cerebral atrophy. Some patchy periventricular and deep white matter hypodensities are similar. Leftward nasal septal deviation. Trace mucosal thickening ethmoid air cells. Mastoid air cells well p neumatized. Orbits and globes are intact. IMPRESSION: Similar mild to moderate generalized atrophy. Mild ventricular prominence likely due to ex vacuo enla rgement. Mild burden of chronic small vessel ischemic disease. No acute intracranial abnormality seen .
[2023-08-27] MEDS: [UNRECOGNIZED DRUG - REMARK] IV SCH (10:31)
--- NOTE | 2023-08-27 11:18 | P.PN ---
Subjective patient is seen for follow-up for acute kidney injury. status post temporary hemodialysis. Renal function has improved. Patient is comfortable. patient is mostly sleeping. He does open his eyes but does not communicate much. serum creatinine was down to 1.29, it is 1.4 today. good urine output. 2 L for 24 hours. maintained on TPN. Objective - Vital Signs Vital signs: Vital Signs Temp 97.9 F 08/27/23 09:15 Pulse 117 H 08/27/23 09:15 Resp 22 08/27/23 09:15 BP 170/94 08/27/23 09:15 Pulse Ox 93 L 08/27/23 09:15 FiO2 Intake & Output 08/26/23 08/27/23 08/27/23 18:59 06:59 18:59 Intake Total 0 Output Total 1300 750 375 Balance -1300 -750 -375 Weight 73 kg Intake: Oral 0 Output: Urine 1300 750 375 Other: Voiding Method Indwelling Catheter Indwelling Catheter - Exam patient is sleeping but arousable. No acute distress Examination of the heart S1 and S2 Examination of the lungs bilateral breath sounds are heard Abdomen is soft nontender Examination of lower extremities shows no significant edema ADOBE ARCHITECT exam shows patient is moving all 4 extremities - Labs CBC & Chem 7: 08/25/23 10:47 08/27/23 06:39 Labs: Abnormal Lab Results - Last 24 Hours (Table) 08/26/23 08/27/23 08/27/23 Range/Units 11:14 04:19 06:39 Sodium 135 L 135 L (137-145) mmol/L BUN 29 H 29 H (9-20) mg/dL Creatinine 1.26 H 1.45 H (0.66-1.25) mg/dL Glucose 107 H 113 H (74-99) mg/dL POC Glucose (mg/dL) 118 H (70-110) mg/dL Assessment and Plan Assessment: 1. Acute kidney injury secondary to hemodynamic ATN. No hydronephrosis noted on CAT scan. Started on hemodialysis August 10, 2023. renal function is improved. Last dialysis August 12, 2023. Permacath removed August 19, 2023. Creatinine 1.2 Nonoliguric. 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 Heme/onc following. 2. Chronic kidney disease stage IIIb with baseline creatinine 1.3-1.5 secondary to nephrosclerosis. 3. Partial small bowel obstruction. Receiving TPN. Surgery following. 4. Metabolic acidosis secondary to acute kidney injury and IV fluids. Better. 5. Atrial tachycardia status post Cardizem drip. On metoprolol. Cardiology following. 6. Anemia. Iron deficiency noted - s/p IV iron. 7. Hyperkalemia secondary to acute kidney injury. improved. Plan: check chest x-ray Add additional IV fluids at 50 mL an hour Continue with Dow catheter Continue to avoid nephrotoxins continue TPN.
[2023-08-27 11:24] LABS: Glucose,Whole Blood 101 mg/dL (70-110)
[2023-08-27] MEDS: SODIUM CHLORIDE 0.9% 1,000 ML IV SCH (11:57)
[2023-08-27] MEDS: HYDROmorphone 0.5 MG/0.5 ML SYRINGE IVP PRN (13:13)
--- NOTE | 2023-08-27 13:25 | XR ---
EXAMINATION TYPE: XR chest 1V DATE OF EXAM: 08/27/2023 COMPARISON: 08/26/2023 HISTORY: 83-year-old male CHF TECHNIQUE: Single frontal view of the chest is obtained. FINDINGS: Heart upper limits of normal in size. Perihilar and interstitial density is present. Small right pleu ral effusion noted. Overall similar compared to yesterday's exam. IMPRESSION: Similar mild pulmonary vascular congestion. Ongoing small right pleural effusion with ad jacent atelectasis and/or consolidation.
--- NOTE | 2023-08-27 13:55 | P.PN ---
Subjective Progress Note Date: 08/27/23 Progress note Date of service 09/04/[address] Griffin Patient seen evaluated [id number] and discussed with his daughter caregiver and lengthy of time and answered her questions and the best of my ability. Patient is progressively lethargic and we had consulted the neurologist Dr. Crabtree to evaluate who did order the CT scan of the brain CT impression mild to moderate generalized atrophy. Mild ventricular prominence. Mild burden of chronic small vessel disease. Chest x-ray ordered today with the impression mild pulmonary vascular congestion ongoing small right pleural effusion with adjacent atelectasis and/or consolidation. Laboratory: Sodium 135, potassium 4.3, chloride 105, carbon dioxide 24, anion gap 6, BUN 29, creatinine 1.45, GFR 44 for non-, glucose 113 and POC glucose 101, Calcium 8.6 normalized, phosphorus 3.6, magnesium is 2. Vital sign heart rate 44233, respiratory rate 22, blood pressure 170/97 with a mean 109860/74 with a mean 104. Patient started on IV metoprolol as he was before because of aspiration and dysphagia, also started on labetalol 5 mg every 6 hours as needed for elevated blood pressure above 140 systolic. Examination: Patient lethargic and moaning with the sternal rub he is awake but not communicating. CT no evidence of stroke. With the morning and questionable pain patient started on Dilaudid 0. 5 mg every 6 hours as needed for comfort. Head normocephalic atraumatic, pupil is constricted bilateral but reactive Oropharynx natural teeth dry tongue Neck: Supple no JVD no thyromegaly no lymph adenopathy trachea midline Chest breath sound bilaterally normal with scattered rhonchi's no wheezes with a history of asthma and COPD in the past and he is receiving his inhalation therapy Heart regular sinus rhythm with the underlying hypertension not well-controlled Abdomen soft positive bowel sounds no tenderness on percussion Extremities no edema and positive pulses Neurologically has been evaluated by the neurologist Dr. Crabtree Assessment: 1. Lethargy and obtundation 2. Metabolic encephalopathy 3. Severe hypothyroidism and patient started on IV thyroid levothyroxine. 4. Patient on TPN, Intralipid, IV fluid 5. Severe protein calorie deficiency with low albumin and prealbumin and protein 6. History of acute kidney injury secondary to ATN, followed by placement of central dialysis catheter 7. He has hemodialysis which stopped on 11 August as started improvement of the renal function 8. Chronic kidney disease stage III prior to the event of admission 9. Hypertension and the hyper tensive heart disease 10 sinus tachycardia 11. Acute respiratory failure with hypoxemia with the associated COPD and asthma 12. Coronary artery disease atherosclerotic heart disease. 13. History of hyper lipidemia. 14. 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 15. Patient initially admitted because of small bowel obstruction secondary to adhesion 16. Status post robotic laparoscopic surgery with lysis of adhesion on August 08, 2023 17 prolonged starvation with ileus postoperative which is resolved. 18. Dysphagia with aspiration, currently n.p.o. Plan and discussion 1. Discussed with his daughter the caregiver with the concern of his progression. 2. The associated lethargy with the high elevation of TSH and the treatment started yesterday intravenous levothyroxine 3. Patient is still critical, discussed with the daughter her request for hospice she will discuss it with her sister. 4. Controlling the blood pressure 5. Effect of starting the levothyroxine IV will not be seen immediately as discussed with the patient daughter. 6. Will continue the support with the TPN and Intralipid. 7. Wait for the opinion of the neurology team. 8. Speech pathology consultation and the follow-up and her recommendation. Time consumed 45 minutes 50% with the patient. Objective - Vital Signs Vital signs: Vital Signs Temp 97.9 F 08/27/23 09:15 Pulse 92 08/27/23 13:11 Resp 22 08/27/23 13:11 BP 164/74 08/27/23 13:11 Pulse Ox 94 L 08/27/23 11:51 FiO2 Intake & Output 08/26/23 08/27/23 08/27/23 18:59 06:59 18:59 Intake Total 0 Output Total 1300 750 375 Balance -1300 -750 -375 Weight 73 kg Intake: Oral 0 Output: Urine 1300 750 375 Other: Voiding Method Indwelling Catheter Indwelling Catheter Indwelling Catheter - Labs CBC & Chem 7: 08/25/23 10:47 08/27/23 06:39 Labs: Abnormal Lab Results - Last 24 Hours (Table) 08/27/23 08/27/23 Range/Units 04:19 06:39 Sodium 135 L (137-145) mmol/L BUN 29 H (9-20) mg/dL Creatinine 1.45 H (0.66-1.25) mg/dL Glucose 113 H (74-99) mg/dL POC Glucose (mg/dL) 118 H (70-110) mg/dL
--- NOTE | 2023-08-27 14:39 | P.PN ---
Subjective Progress Note Date: 08/27/23 This is a 83-year-old male patient with a known history of coronary artery disease with previous stent placement, dementia, hypertension, hyperlipidemia, hypothyroidism, non-smoker who presented here to the emergency room on 08/01/2023 with abdominal pain. He had been followed by surgical services. He did have a nasogastric tube which had approximately 2100 cc output once put in. However the patient inadvertently pulled it out last night. Today he had developed increased abdominal discomfort, tachycardia and shortness of breath. We were consulted for possible transfer to the ICU. He is seen today on the regular medical floor. He is awake and alert. He denies any pain at rest. He is tender to palpation. He is tachycardic, sinus. Currently afebrile. Continue O2 saturations in the mid 90s on 3 L/min per nasal cannula. Blood pressure stable. Blood cultures reveal no growth. White count 8.5. Hemoglobin 12.6. Platelets 373. Sodium 139. Potassium 4.6. Bicarb 14. BUN 34. Creatinine 3.11. Glucose 88. Amylase 73. Lipase 49. CT scan of the abdomen today revealed bowel obstruction pattern. Small amount of free fluid. Chest x-ray reveals no acute cardiopulmonary process. A nasogastric tube has been reinserted and in good position. He is currently on Zosyn. Patient was seen and examined today on 08/05/2023, patient is doing much better today compared to the last 2 days, less abdominal pain, no nausea no vomiting, continues to have nasogastric tube in place.WBC count is 9.9 hemoglobin 11.3 basic metabolic profile is normal however his renal functioning is worse with BUN up to 69 creatinine 5.60, and that is being addressed by nephrology on the case. His acute kidney injury is felt to be related to hemodynamic ATN, no hydronephrosis on CT of the abdomen, patient does have history of chronic kidney disease stage IIIb. Patient is on Cardizem drip now for atrial tachycardia. And cardiology is following Reevaluate today on 08/06/23, patient pulled his nasogastric tube yesterday, continues to have abdominal distention and abdominal pain. Apparently multiple attempts by nurses to place the nasogastric tube were unsuccessful. Surgery is to address the nasogastric tube placement and or exploratory laparotomy on this patient to relieve his bowel obstruction.WBC count today is 8.4 hemoglobin 10.4, basic metabolic profile is normal renal profile is worsening with a BUN of 85 creatinine 6.08 and his renal profile is being addressed by nephrology on the case Patient was reevaluated today on 08/07/2023, continues to have abdominal pain, continues to have small bowel obstruction, and now he is developing worsening renal disease. From the looks of it, patient may be heading towards dialysis. Patient was seen by Dr. Truong today, and I believe he is recommending exploratory laparotomy after he is seen by Dr. Goodman tomorrow. Continues to have decent urine output, 600 cc in the last 8 hours. Could not have a nasogastric tube placed back, patient is getting in Progress note dated August 08, 2023. 83-year-old male seen in room 378. The patient is currently on 2 L of oxygen. The patient is getting dextrose with half-normal saline at 100 cc an hour. He does have a significantly tender abdomen, anytime he burps, or coughs. Also, he is tender on palpation. Current labs include a white count 9.5, hemoglobin 11.4, hematocrit 36, and a platelet count of 343,000. Sodium 143, potassium 4.2, chlorides 107, CO2 27, BUN 93, creatinine 5.62. Calcium is 8, with a phosphorus of 5.4. Glucose is 97. Blood cultures are negative. Progress note dated August 09, 2023. 83-year-old male seen today in room 378. The patient is currently on 3 L of oxygen. NG tube remains in place. He is getting D5 with half-normal saline at 100 cc an hour. The patient has significant abdominal pain on palpation of the abdomen. Labs today include a white count 9.3, hemoglobin 10.8, hematocrit 33.9, and a platelet count of 355,000. Sodium 140, potassium 4.4, chlorides 110, CO2 22, BUN 87, and creatinine 5.53. Glucose is 116. Albumin is 2. All microbiologic sampling is thus far negative. Progress note dated August 10, 2023. 83-year-old male seen again in room 378. The patient again pulled out his NG tube. The patient is on room air. The patient is getting TPN at 30 cc an hour. The patient still has significant abdominal discomfort on palpation. I count 10.5, hemoglobin 10.7, hematocrit 33.8, and platelet count is 384,000. Sodium 140, potassium 3.8, chlorides 107, CO2 20, anion gap 13, BUN 92, creatinine 5.60. Glucose is 123. Magnesium 1.9. Phosphorus 5.2. Progress note dated August 11, 2023. 83-year-old male seen today in room 377. Currently, the patient is receiving hemodialysis. He is on room air. The patient is a DO NOT RESUSCITATE patient. He is getting TPN at 48 cc an hour. He continues on Eraxis, and Zosyn. No new laboratory data today as yet, other than a glucose of 106. Chest x-ray from yesterday shows some mild streaky basilar atelectasis. Progress note dated August 12, 2023. 83-year-old male, seen in room 377. Currently, the patient is on room air. The patient is getting TPN at 48 cc an hour. He continues on Eraxis, and meropenem. Current labs include a sodium 133, potassium 3.2, chlorides 102, CO2 24, BUN 37, creatinine 2.53. Glucose is 128. Calcium 7.5. Albumin 1.9. The patient does not appear to be as tender, on palpation of the abdomen, as he has been, on previous days. Progress note dated August 13, 2023. 83-year-old male seen today in room 377. The patient continues on room air. Sa turations are 94%. The rest of his vital signs are relatively stable. The patient continues on TPN at 48 cc an hour, and D5.45, at 100 cc an hour. He also continues on meropenem, and the antifungal, and Eraxis. Current laboratory data includes a sodium 131, potassium 3.3, chlorides 101, CO2 25, BUN 23, creatinine 1.96. Glucose is 115. Albumin is 1.9. Wound cultures were positive for Enterobacter aerogenes, Marybeth albicans, and Enterococcus faecalis. The patient is seen today August 14, 2023 in follow-up on the regular medical floor. He is currently resting in bed. He denies any worsening abdominal pain. He is maintaining O2 saturations in the 90s on room air. He has D5 W and 0.45 normal saline at 100 MLS per hour. He remains on TPN at 40 MLS per hour. Wound cultures were positive for Enterobacter aerogenes, Marybeth albicans, Enterococcus faecalis. White count 11.4. Hemoglobin 9.5. Platelets 358. Sodium 130. Potassium 3.8. Bicarb 25. BUN 28. Creatinine 2.29. Glucose 98. C-reactive protein 6.5. He is continued on meropenem and Eraxis. Continued on bronchodilators. Heparin for DVT prophylaxis. The patient is seen today August 22, 2023 in follow-up on the regular medical floor. He is currently awake and alert in no acute distress. He is maintaining O2 saturations in the 90s on 2 L/min per nasal cannula. His surgery was back on August 08, 2023. He remains on TPN for nutritional support. He is having bowel movements. He is continued on antibiotics in the form of meropenem and Eraxis. Remains on bronchodilators. Remains on heparin for DVT prophylaxis. White count 9.5. Hemoglobin 7.8. Sodium 135. Potassium 4.8. Bicarb 18. BUN 39. Creatinine 1.76. AST 53. ALT 34. Patient was reevaluated today on 08/23/2023, patient seems to be comfortable, not in pulmonary distress, he is on 2 L nasal cannula with O2 sats at 98%, however the patient seems to be a bit more confused, and keeps pulling on his boots, for no specific purpose. Labs today showed relatively normal electrolytes, BUN is 32 creatinine is down to 1.62 patient has no more issues related to his bowel obstruction, his medications were all reviewed, remains being followed by multiple consultants including infectious disease, remains on Eraxis for almost the last 2 weeks. Patient is also receiving Merrem, for almost 2 weeks. Patient is also receiving TPN. Pulmonary kraft we have a mostly on bronchodilators. Reevaluate 08/24/2023, patient is doing well, he definitely denies any shortness of breath cough or wheezing, denies any abdominal pain nausea or vomiting, patie nt seems to be very comfortable, but intermittently confused. Patient remains on TPN, and the plan is to continue TPN until the patient caloric oral count improves. Patient did present initially with small bowel obstruction, and he had adhesions, underwent lysis of adhesions and decompressive enterostomy and done quite well since then. In addition the patient developed acute renal failure. Patient has been steadily improving last creatinine was 1.56 with a BUN of 31 patient did have a temporary hemodialysis. His permacath was removed on August 18 and renal functioning has been steadily improving creatinine is now 1.6 Reevaluate today on 08/25/2023, patient is basically about the same, still having difficulty with maintaining adequate caloric count. Remains on TPN, today is his 14th day of antibiotics, and hopefully this will be discontinued by infectious disease on the case. Nephrology kraft patient creatinine is coming down steadily, and steadily improving, he had a temporary hemodialysis but has not required any dialysis recently.WBC count is 8.5 hemoglobin is 8 basic metabolic profile is normal creatinine today is 1.29 The patient is seen today August 26, 2023 in follow-up on the regular medical floor. He remains quite weak and debilitated. He is maintaining O2 saturations in the 90s on room air. X-ray shows perihilar and basilar opacities. Right upper extremity PICC line in place. Sodium 135. Potassium 4.2. Bicarb 25. BUN 29. Creatinine 1.26. Glucose 107. He was having issues with increased lethargy facial drooping and choking on food. Plan is for PEG tube placement on 08/29/2023. He is continued on Eraxis and meropenem. Remains on TPN for nutritional support. The patient is seen today August 27, 2023 in follow-up on the regular medical floor. He is currently resting in bed. Arousable. Weak and debilitated. CT scan of the brain revealed no acute intracranial process. Neurology is following. Chest x-ray shows similar mild pulmonary vascular congestion with a small right pleural effusion. Is maintaining O2 saturation in the 90s on room a ir. He is afebrile. Hemodynamically stable. Sodium 135. Potassium 4.3. Bicarb 24. BUN 29. Creatinine 1.43. Glucose 113. He is continued on TPN for nutritional support. The plan now is for PEG tube placement on 08/29/2023. Objective - Vital Signs Vital signs: Vital Signs Temp 97.9 F 08/27/23 09:15 Pulse 92 08/27/23 13:11 Resp 22 08/27/23 13:11 BP 164/74 08/27/23 13:11 Pulse Ox 94 L 08/27/23 11:51 FiO2 Intake & Output 04/19/24 04/20/24 04/20/24 18:59 06:59 18:59 Intake Total 0 Output Total 1300 750 375 Balance -2984 -761 -374 Weight 73 kg Intake: Oral 0 Output: Urine 1300 750 375 Other: Voiding Method Indwelling Catheter Indwelling Catheter Indwelling Catheter - Exam GENERAL EXAM: Alert, weak debilitated 83-year-old male, resting in bed, on room air, in no apparent distress. HEAD: Normocephalic. EYES: Normal reaction of pupils, equal size. NOSE: Clear with pink turbinates. THROAT: No erythema or exudates. NECK: No masses, no JVD. CHEST: No chest wall deformity. LUNGS: Equal air entry with no crackles, wheeze, rhonchi or dullness. CVS: S1 and S2 normal with no audible murmur, regular rhythm. ABDOMEN: Incision sites clean dry well-approximated. No hepatosplenomegaly, normal bowel sounds, no guarding or rigidity. SPINE: No scoliosis or deformity SKIN: No rashes CENTRAL NERVOUS SYSTEM: No focal deficits, tone is normal in all 4 extremities. EXTREMITIES: There is no peripheral edema. No clubbing, no cyanosis. Peripheral pulses are intact. - Labs CBC & Chem 7: 08/25/23 10:47 08/27/23 06:39 Labs: Abnormal Lab Results - Last 24 Hours (Table) 08/27/23 08/27/23 Range/Units 04:19 06:39 Sodium 135 L (137-145) mmol/L BUN 29 H (9-20) mg/dL Creatinine 1.45 H (0.66-1.25) mg/dL Glucose 113 H (74-99) mg/dL POC Glucose (mg/dL) 118 H (70-110) mg/dL Assessment and Plan Assessment: Abdominal pain in a patient found to have a bowel obstruction and small amount of free fluid status post lysis of adhesions and decompressive enterostomy on 08/08/2023 Acute hypoxemic respiratory failure secondary to above, history of COPD but is a lifelong non-smoker recovered and on room air. There is no concerns regarding aspiration Dysphagia and aspiration, plan is for PEG tube placement on 08/29/2023 continued on TPN for nutritional support History of coronary disease with previous stent placement Hypertension Hyperlipidemia Hypothyroidism Dementia Lifelong non-smoker Plan: The patient was seen and evaluated Chest x-ray, labs and medications reviewed Plan is for PEG tube placement 08/29/2023 Remains on TPN for nutritional support Remains on Eraxis and meropenem per ID service Stable and on room air I have personally seen and examined the patient, performed the documentation and the assessment and plan as written. Number of minutes spent on the visit: 10.
--- NOTE | 2023-08-27 14:49 | P.PN ---
Subjective Progress Note Date: 08/27/23 The patient is seen in neurologic follow-up on August 27, 2023, in cross coverage for Dr. Zamarripa, in collaboration with Jena Rashid, via teleneurology. The patient's daughter is present in the room at the time of the evaluation. She reports that her father has not been speaking and they are concerned that he is aspirating his food, when the staff is feeding him. There is also concern that he is unable to feed himself because he cannot grasp the fork or spoon. According to the patient's nurse, she has not heard him speak since Tuesday. She was taking care of him last Tuesday and he was reportedly able to talk and eat and drink at that time. The patient's chart has been reviewed. Objective - Vital Signs Vital signs: Vital Signs Temp 97.9 F 08/27/23 09:15 Pulse 109 H 08/27/23 11:51 Resp 22 08/27/23 11:51 BP 170/97 08/27/23 11:51 Pulse Ox 94 L 08/27/23 11:51 FiO2 Intake & Output 08/26/23 08/27/23 08/27/23 18:59 06:59 18:59 Intake Total 0 Output Total 1300 750 375 Balance -1300 -750 -375 Weight 73 kg Intake: Oral 0 Output: Urine 1300 750 375 Other: Voiding Method Indwelling Catheter Indwelling Catheter Indwelling Catheter - Exam General: The patient is reclining in the bed. He keeps his eyes closed. He is cachectic. When left alone, he does not appear to be in any distress. HEENT: Head is atraumatic, normocephalic. Fundus not visualized. There is no scleral icterus. Mucous membranes are moist. Neck: Rigidity is difficult to assess as the patient seems to be resisting movement of his neck. Extremities: Without edema. The patient's toes are very cold to the touch. Pulses are present. Toes are not cyanotic. Neurological examination Mental status: The patient opens his eyes to verbal stimulation however the right eye opening is larger than the left eye. 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 The patient is nonverbal. He follows no commands. Cranial nerves: 2-12 grossly intact Motor: The patient does not follow instructions for strength testing. There is movement of the left foot and repositioning of the extremities. Deep tendon reflexes: Not assessed however plantar responses are mute bilaterally. - Labs CBC & Chem 7: 08/25/23 10:47 08/27/23 06:39 Labs: Abnormal Lab Results - Last 24 Hours (Table) 08/27/23 08/27/23 Range/Units 04:19 06:39 Sodium 135 L (137-145) mmol/L BUN 29 H (9-20) mg/dL Creatinine 1.45 H (0.66-1.25) mg/dL Glucose 113 H (74-99) mg/dL POC Glucose (mg/dL) 118 H (70-110) mg/dL Assessment and Plan Assessment: Altered mental status, likely due to metabolic encephalopathy. Patient has prolonged hospitalization, likely resulting in encephalopathy, on top of his baseline moderate dementia. Reasons of encephalopathy multifactorial as mentioned below. * Dementia, at least moderate degree. This probably has got worse with recent hospitalization. * Small bowel obstruction, status post robotic assisted da Artie laparoscopic with lysis of adhesions and decompressive antrostomy. * Recent acute renal failure, requiring dialysis. Renal functions improved. * Hypothyroidism * Moderate renal insufficiency * Anemia * Worsening perihilar and bibasilar opacities per chest x-ray. * History of Bradley's palsy Plan: * Patient's dementia probably has got worse with recent prolonged hospitalization, and multiple significant medical/surgical conditions. * His mentation probably will improve, once these conditions comes under control. However typically patients with dementia gets a permanent setback from these kind of hospitalizations, and do not return to baseline level of functioning even after complete resolution of medical/surgical conditions. * Recommend resuming Aricept 10 mg, and Namenda 10 mg twice daily when medically cleared. * Patient has developed hypothyroidism, and the dose of thyroxine has been adjusted. * We will check EEG to evaluate for encephalopathy, rule out any other irritative tendency. * Patient currently on Eraxis and meropenem. ID on board. * Patient's neck appears stiff, white count is not elevated at this time. We will hold off on lumbar puncture at this time. * Will continue to monitor patient and await EEG results. Thank you for the consult. Time with Patient: Greater than 30 (40 minutes were spent evaluating this patient today including, obtaining history, examining the patient, reviewing imaging, chart documentation, labs, placing orders and creating this note)
[2023-08-27 17:09] LABS: Glucose,Whole Blood 103 mg/dL (70-110)
--- NOTE | 2023-08-27 20:10 | P.PN ---
Subjective Progress Note Date: 08/27/23 Principal diagnosis: Reason for follow-up is fever likely abdominal source Patient is a 83-year-old male with a past medical history significant for coronary disease COPD dementia hypertension hyperlipidemia reflux presenting to the hospital for evaluation of abdominal pain bloating has been diagnosed with the distal small bowel obstruction developing a fever concerning for possible abdominal sepsis prompting this consultation.Patient is status post robotic assisted laparoscopic lysis of adhesion extensive and decompressive enterostomy that was completed on 08/08/2023 On today's evaluation that is 08/27/2023,the patient remains to be afebrile, patient is on room air not requiring supplemental oxygen and seem to be breathing comfortably patient remains to be lethargic with mental status changes and unable to provide any history no vomiting or any other changes reported by the nursing staff. Patient did have a creatinine 1.45 no CBC was done today Objective - Vital Signs Vital signs: Vital Signs Temp 97.9 F 08/27/23 09:15 Pulse 117 H 08/27/23 09:15 Resp 22 08/27/23 09:15 BP 170/94 08/27/23 09:15 Pulse Ox 93 L 08/27/23 09:15 FiO2 Intake & Output 08/26/23 08/27/23 08/27/23 18:59 06:59 18:59 Intake Total 0 Output Total 1300 750 375 Balance -1300 -750 -375 Weight 73 kg Intake: Oral 0 Output: Urine 1300 750 375 Other: Voiding Method Indwelling Catheter Indwelling Catheter - Exam GENERAL DESCRIPTION: An elderly male up in the chair in no distress RESPIRATORY SYSTEM: Unlabored breathing , decreased breath sounds at bases HEART: S1 S2 regular rate and rhythm , ABDOMEN: Soft , no tenderness EXTREMITIES: No edema feet exam completed with the help of SEED ANALYSIS LABORATORY ASSISTANT - Labs CBC & Chem 7: 08/25/23 10:47 08/27/23 06:39 Labs: Abnormal Lab Results - Last 24 Hours (Table) 08/26/23 08/27/23 08/27/23 Range/Units 11:14 04: 06:39 Sodium 135 L 135 L (137-145) mmol/L BUN 29 H 29 H (9-20) mg/dL Creatinine 1.26 H 1.45 H (0.66-1.25) mg/dL Glucose 107 H 113 H (74-99) mg/dL POC Glucose (mg/dL) 118 H (70-110) mg/dL Assessment and Plan (1) Fever Current Visit: Yes Status: Acute Code(s): R50.9 - FEVER, UNSPECIFIED SNOMED Code(s): 276506771 (2) Leukocytosis Current Visit: Yes Status: Acute Code(s): D72.829 - ELEVATED WHITE BLOOD CELL COUNT, UNSPECIFIED SNOMED Code(s): 604711473 (3) Small bowel obstruction Current Visit: Yes Status: Acute Code(s): K56.609 - UNSP INTESTNL OBST, UNSP TO PARTIAL VERSUS COMPLETE OBST SNOMED Code(s): 205533068 (4) Peritonitis Current Visit: Yes Status: Acute Code(s): K65.9 - PERITONITIS, UNSPECIFIED SNOMED Code(s): 49420330 Plan: 1patient with low-grade fever elevated white count and this patient presented to hospital with abdominal pain and bloating and has been diagnosed with the small bowel obstruction likely etiology for his low-grade fever and elevated white count, the patient is status post laparoscopic lysis of adhesion and enterostomy abdominal cultures obtained which are currently growing Enterococcus drug-resistant Enterobacter and Marybeth 2-patient is afebrile, patient white count has been normal 3-patient is on meropenem and Eraxis on the basis of culture patient did have worsening of his mental status changes lethargy and the family is talking about hospice which may be appropriate they have been encouraged to discuss it with admitting physician Dictation was produced using [employer] dictation software. please excuse any grammatical, word or spelling errors.
--- NOTE | 2023-08-27 20:52 | P.PN ---
Subjective Progress Note Date: 08/27/23 Subjective Progress Note Date: 08/26/23 CHIEF COMPLAINT: Abdominal pain HISTORY OF PRESENT ILLNESS: Patient with small bowel obstruction status post robotic assisted laparoscopic lysis of adhesions and decompressive enterostomy on 08/08/2023. Patient is lying in bed. No new complaints. Patient completed calorie count. Oral intake is poor evaluated by speech therapy. They are concerned for possible aspiration. Due to concerns for aspiration, failed swallow eval and poor oral intake peg tube recommended. Patient scheduled for p ossible PEG tube placement on 08/29/[address] Pinzon PHYSICAL EXAM: VITAL SIGNS: Reviewed GENERAL: Well-developed in no acute distress. HEENT: No sclera icterus. Extraocular movements grossly intact. Moist buccal mucosa. Head is atraumatic, normocephalic. Hears conversational speech. No nasal drainage. NECK: Supple without lymphadenopathy. CHEST: Non-labored respirations and equal bilateral excursions. CARDIOVASCULAR: Palpable 2+ radial pulses. ABDOMEN: Nondistended. Nontender. No signs of peritonitis. nontender. Incision sites clean dry and intact. MUSCULOSKELETAL: No clubbing or cyanosis. NEUROLOGIC: No focal or lateralizing signs. Cranial nerves II through XII grossly intact. PSYCH: confused SKIN: Well perfused. Good skin turgor. ASSESSMENT: 1. Small bowel obstruction due to adhesion, lower pelvis left lower quadrant status post lysis of adhesions and decompressive enterostomy 2. Expected ileus due to physical inactivity, spinal stenosis and chronic back pain and acute renal failure 3. Acute renal failure 4. Sigmoid diverticulosis 5. Left lower quadrant abdominal pain 6. Internal hernia pelvis 7. Poor oral intake PLAN: -, failed swallow eval and poor oral intake peg tube recommended. Patient scheduled for possible PEG tube placement on 08/29/[address] Pinzon Patient scheduled for EGD with PEG tube placement on 08/29/[address] Pinzon for poor oral intake -Continue TPN Objective - Vital Signs Vital signs: Vital Signs Temp 97.5 F L 08/27/23 15:43 Pulse 90 08/27/23 20:26 Resp 20 08/27/23 20:26 BP 191/86 08/27/23 20:26 Pulse Ox 95 08/27/23 20:26 FiO2 Intake & Output 08/27/23 08/27/23 08/28/23 06:59 18:59 06:59 Output Total 750 875 Balance -750 -875 Output: Urine 750 875 Other: Voiding Method Indwelling Catheter Indwelling Catheter - Labs CBC & Chem 7: 08/25/23 10:47 08/27/23 06:39 Labs: Abnormal Lab Results - Last 24 Hours (Table) 08/27/23 08/27/23 Range/Units 04:19 06:39 Sodium 135 L (137-145) mmol/L BUN 29 H (9-20) mg/dL Creatinine 1.45 H (0.66-1.25) mg/dL Glucose 113 H (74-99) mg/dL POC Glucose (mg/dL) 118 H (70-110) mg/dL
[2023-08-28 00:07] LABS: Glucose,Whole Blood 107 mg/dL (70-110)
[2023-08-28 06:13] LABS: Glucose,Whole Blood 113 mg/dL (70-110)
--- NOTE | 2023-08-28 09:13 | P.PN ---
Subjective Progress Note Date: 08/28/23 Patient [place] clinical change. Per the nursing staff a consult to hospice has been made. Patient's power of securities attorney have not requested a PEG tube to be placed. On exam vital signs appear stable. Abdomen soft. Patient can receive supportive care. His PEG tube will most likely be canceled. Objective - Vital Signs Vital signs: Vital Signs Temp 97.6 F 08/28/23 08:31 Pulse 110 H 08/28/23 08:32 Resp 22 08/28/23 08:31 BP 175/90 08/28/23 08:31 Pulse Ox 95 08/28/23 08:31 FiO2 Intake & Output 08/27/23 08/28/23 08/28/23 18:59 06:59 18:59 Intake Total 1052 Output Total 875 550 Balance -875 -550 1052 Intake: Intake, IV Titration 1052 Amount Mvi, Adult No.4 with Vit 1052 K 10 ml Trace (Conc-1Ml/ Dose) 1 ml Sodium Acetate 56 meq Calcium Gluconate 1 gm Magnesium Sulfate gm 1.5 gm In Amino Acids 5 %/Dextrose 20 % 1,000 ml @ 48 mls/hr IV . [id number] [facility] Rx#:[id number] Output: Urine 875 550 Other: Voiding Method Indwelling Catheter Indwelling Catheter Indwelling Catheter - Labs CBC & Chem 7: 08/25/23 10:47 08/27/23 06:39 Labs: Abnormal Lab Results - Last 24 Hours (Table) 08/28/23 Range/Units 06:12 POC Glucose (mg/dL) 113 H (70-110) mg/dL
--- NOTE | 2023-08-28 11:45 | P.PN ---
Subjective patient is seen for follow-up for acute kidney injury. status post temporary hemodialysis. Renal function has improved. Patient is comfortable. patient is mostly sleeping. Received Dilaudid this morning. serum creatinine was down to 1.29, it is 1.4 as of yesterday. good urine output. 2 L for 24 hours. maintained on TPN. Objective - Vital Signs Vital signs: Vital Signs Temp 97.6 F 08/28/23 08:31 Pulse 96 08/28/23 11:02 Resp 20 08/28/23 11:02 BP 168/79 08/28/23 11:02 Pulse Ox 94 L 08/28/23 11:02 FiO2 Intake & Output 08/27/23 08/28/23 08/28/23 18:59 06:59 18:59 Intake Total 1052 Output Total 875 550 Balance -875 -550 1052 Intake: Intake, IV Titration 1052 Amount Mvi, Adult No.4 with Vit 1052 K 10 ml Trace (Conc-1Ml/ Dose) 1 ml Sodium Acetate 56 meq Calcium Gluconate 1 gm Magnesium Sulfate gm 1.5 gm In Amino Acids 5 %/Dextrose 20 % 1,000 ml @ 48 mls/hr IV . [id number] [facility] Rx#:[id number] Output: Urine 875 550 Other: Voiding Method Indwelling Catheter Indwelling Catheter Indwelling Catheter - Exam patient is sleeping but arousable. No acute distress Examination of the heart S1 and S2 Examination of the lungs bilateral breath sounds are heard Abdomen is soft nontender Examination of lower extremities shows no significant edema [employer] exam shows patient is moving all 4 extremities - Labs CBC & Chem 7: 08/25/23 10:47 08/27/23 06:39 Labs: Abnormal Lab Results - Last 24 Hours (Table) 08/28/23 Range/Units 06:12 POC Glucose (mg/dL) 113 H (70-110) mg/dL Assessment and Plan Assessment: 1. Acute kidney injury secondary to hemodynamic ATN. No hydronephrosis noted on CAT scan. Started on hemodialysis August 10, 2023. renal function is improved. Last dialysis August 12, 2023. Permacath removed August 19, 2023. Creatinine 1.4 Nonoliguric. 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 Heme/onc following. 2. Chronic kidney disease stage IIIb with baseline creatinine 1.3-1.5 secondary to nephrosclerosis. 3. Partial small bowel obstruction. Receiving TPN. Surgery following. 4. Metabolic acidosis secondary to acute kidney injury and IV fluids. Better. 5. Atrial tachycardia status post Cardizem drip. On metoprolol. Cardiology following. 6. Anemia. Iron deficiency noted - s/p IV iron. 7. Hyperkalemia secondary to acute kidney injury. improved. Plan: Continue additional IV fluids at 50 cc an hour along with TPN at 50 cc an hour. Continue with Dow catheter Continue to avoid nephrotoxins continue TPN.
[2023-08-28 11:53] LABS: Glucose,Whole Blood 109 mg/dL (70-110)
--- NOTE | 2023-08-28 13:26 | P.PN ---
Subjective Progress Note Date: 08/28/23 Progress note Date of service 08/28/[address] Griffin. Patient seen evaluated at bedside Patient lethargic however he can open his eyes with the strong verbal stimuli. POC glucose 109 stable No labs done today will be done tomorrow to evaluate his nutritional status as well as renal function as well as liver function and his anemia as well. Hemodialysis. With the history of iron deficiency anemia. Reviewed Dr. Schreiber note of yesterday with the recommendation of PICU however the family refused at this time and requested hospice which was already consulted. On examination: Vital sign temperature 97.6 F axillary and heart rate ranging between 1101 02 Blood pressure ranging between 170/83 with mean blood pressure 152126/82 with a mean 108 at the time of the exam and the heart rate 100 depending on the coverage with medication that he has been given IV. It Oxygen saturation 94% on room air. Mental status: Still lethargic obtunded he can open his eyes with strong verbal stimuli or with rubbing of his chest with the underlying metabolic encephalopathy and the CT scan was negative Patient seen by teleneurology as he stated in September 04, 2023 with the coverage of Dr. Crabtree collaboration with Jena Rashid, via telemetry neurology he stated that the patient was present in the room in his note Neurologist name is Amy Olguin and her assessment Altered mental status likely due to metabolic encephalopathy patient has prolonged hospitalization, likely resulting in encephalopathy, on the top of his baseline moderate dementia, reason for encephalopathy multifactorial as m entioned below Dementia at least for moderate degree probably has got worse with the recent hospitalization. Small bowel obstruction status post robotic assisted vein she laparoscopic with lysis of the adhesion and compressive antrostomy. Recent acute renal failure requiring dialysis with the renal function improved Hypothyroidism Moderate renal insufficiency Anemia Worsening perihilar and basilar opacities per chest x-ray. History of Bradley's palsy. And her plan or recommendation: Resuming Aricept 10 mg and Namenda 10 mg twice a day which is patient is aspiration could not take any oral medication Patient developed hypothyroidism which patient has had before the event however does his thyroxine is adjusted Check EEG for encephalopathy. And await for EEG And this exam was on telemetry neurology. The head was normocephalic atraumatic pupil is constricted mild reaction Oropharynx natural teeth with choking and dysphagia could be bulbar. Neck was supple no JVD no thyromegaly no lymphadenopathy trachea midline Chest normal breath sounds no wheezes no rhonchi's is receiving inhalation therapy Heart: Hypertension with hypertensive heart disease with preserved ejection fraction and he is covered with IV medication for sinus tachycardia as well as blood pressures The abdomen soft positive bowel sounds and moving his bowel per nursing staff Renal function has been significantly improved. Extremities no edema and positive pulses. Neurologically per neurological note and the neurologist and telemetry neurology. Assessment: Plan: 1. Metabolic encephalopathy 2. Severe hypothyroidism supplemented with IV thyroid. 3. Hypertension with hypertensive heart disease and sinus tachycardia covered with IV metoprolol as well as labetalol as needed. 4. Family refused PICU which suggested by pulmonary and critical care 5. Requested hospice consultation which is already consulted today 7. Prolonged history of hospitalization with protein calorie deficiency on TPN 8. Acute respiratory failure with hypoxemia resolved 9. Acute kidney injury with a creatinine up to more than 6 10. Patient underwent temporary hemodialysis with the placement of dialysis catheter in the right subclavian which was placed by vascular surgeon Dr. Shannon 11. Recovering from acute renal failure with the underlying chronic kidney disease stage III 12. Abnormal urine protein and nephrology consulted Dr. Byrnes for further evaluation and action. 13. Anemia with iron deficiency transfused with iron 15. History of coronary artery disease atherosclerotic heart disease with the sinus tachycardia controlled. 16. History of dementia 17. Spinal stenosis with walking difficulties 18. History of COPD and asthma was on steroid in the past 19. Patient initially admitted with small bowel obstruction secondary to adhesions and underwent surgical lysis with robotic laparoscopic on August 08, 2023 #20 prolongated ileus currently resolved. Discussion: I did discuss with the family and the caregiver his daughter Kunal in regard of future plan currently she expressed that she wanted to have hospice consultation. Will obtain monitor laboratory tomorrow and will see what hospice as well as the patient caregiver acceptable to them. Will continue the current treatment. Depending on the decision of the family we will proceed but at this time continue the current treatment. Tomorrow neurology will be changed Dr. Tello and I will see if they will proceed with the EEG and what is the result of that which is the recommendation of the teleneurologist. Objective - Vital Signs Vital signs: Vital Signs Temp 97.6 F 08/28/23 08:31 Pulse 100 08/28/23 12:29 Resp 20 08/28/23 11:02 BP 161/82 08/28/23 12:10 Pulse Ox 94 L 08/28/23 11:02 FiO2 Intake & Output 08/27/23 08/28/23 08/28/23 18:59 06:59 18:59 Intake Total 1052 Output Total 875 550 Balance -875 -550 1052 Intake: Intake, IV Titration 1052 Amount Mvi, Adult No.4 with Vit 1052 K 10 ml Trace (Conc-1Ml/ Dose) 1 ml Sodium Acetate 56 meq Calcium Gluconate 1 gm Magnesium Sulfate gm 1.5 gm In Amino Acids 5 %/Dextrose 20 % 1,000 ml @ 48 mls/hr IV . [id number] [facility] Rx#:[id number] Output: Urine 875 550 Other: Voiding Method Indwelling Catheter Indwelling Catheter Indwelling Catheter - Labs CBC & Chem 7: 08/25/23 10:47 08/27/23 06:39 Labs: Abnormal Lab Results - Last 24 Hours (Table) 08/28/23 Range/Units 06:12 POC Glucose (mg/dL) 113 H (70-110) mg/dL
[2023-08-28 13:27] LABS: African American GFR (CKD) 59 (>60 ml/min/1.73 sqM); Anion Gap 3 mmol/L; Blood Urea Nitrogen 35 mg/dL (9-20); Calcium 8.3 mg/dL (8.4-10.2); Carbon Dioxide 27 mmol/L (22-30); Chloride 105 mmol/L (98-107); Glucose 104 mg/dL (74-99); Magnesium 1.9 mg/dL (1.6-2.3); Non-African American GFR(CKD) 51 (>60 ml/min/1.73 sqM); Phosphorus 3.9 mg/dL (2.5-4.5); Potassium 4.2 mmol/L (3.5-5.1); Sodium 135 mmol/L (137-145)
--- NOTE | 2023-08-28 16:12 | P.PN ---
Subjective Progress Note Date: 08/28/23 This is a 83-year-old male patient with a known history of coronary artery disease with previous stent placement, dementia, hypertension, hyperlipidemia, hypothyroidism, non-smoker who presented here to the emergency room on 08/01/2023 with abdominal pain. He had been followed by surgical services. He did have a nasogastric tube which had approximately 2100 cc output once put in. However the patient inadvertently pulled it out last night. Today he had developed increased abdominal discomfort, tachycardia and shortness of breath. We were consulted for possible transfer to the ICU. He is seen today on the regular medical floor. He is awake and alert. He denies any pain at rest. He is tender to palpation. He is tachycardic, sinus. Currently afebrile. Continue O2 saturations in the mid 90s on 3 L/min per nasal cannula. Blood pressure stable. Blood cultures reveal no growth. White count 8.5. Hemoglobin 12.6. Platelets 373. Sodium 139. Potassium 4.6. Bicarb 14. BUN 34. Creatinine 3.11. Glucose 88. Amylase 73. Lipase 49. CT scan of the abdomen today revealed bowel obstruction pattern. Small amount of free fluid. Chest x-ray reveals no acute cardiopulmonary process. A nasogastric tube has been reinserted and in good position. He is currently on Zosyn. Patient was seen and examined today on 08/05/2023, patient is doing much better today compared to the last 2 days, less abdominal pain, no nausea no vomiting, continues to have nasogastric tube in place.WBC count is 9.9 hemoglobin 11.3 basic metabolic profile is normal however his renal functioning is worse with BUN up to 69 creatinine 5.60, and that is being addressed by nephrology on the case. His acute kidney injury is felt to be related to hemodynamic ATN, no hydronephrosis on CT of the abdomen, patient does have history of chronic kidney disease stage IIIb. Patient is on Cardizem drip now for atrial tachycardia. And cardiology is following Reevaluate today on 08/06/23, patient pulled his nasogastric tube yesterday, continues to have abdominal distention and abdominal pain. Apparently multiple attempts by nurses to place the nasogastric tube were unsuccessful. Surgery is to address the nasogastric tube placement and or exploratory laparotomy on this patient to relieve his bowel obstruction.WBC count today is 8.4 hemoglobin 10.4, basic metabolic profile is normal renal profile is worsening with a BUN of 85 creatinine 6.08 and his renal profile is being addressed by nephrology on the case Patient was reevaluated today on 08/07/2023, continues to have abdominal pain, continues to have small bowel obstruction, and now he is developing worsening renal disease. From the looks of it, patient may be heading towards dialysis. Patient was seen by Dr. Truong today, and I believe he is recommending exploratory laparotomy after he is seen by Dr. Goodman tomorrow. Continues to have decent urine output, 600 cc in the last 8 hours. Could not have a nasogastric tube placed back, patient is getting in Progress note dated August 08, 2023. 83-year-old male seen in room 378. The patient is currently on 2 L of oxygen. The patient is getting dextrose with half-normal saline at 100 cc an hour. He does have a significantly tender abdomen, anytime he burps, or coughs. Also, he is tender on palpation. Current labs include a white count 9.5, hemoglobin 11.4, hematocrit 36, and a platelet count of 343,000. Sodium 143, potassium 4.2, chlorides 107, CO2 27, BUN 93, creatinine 5.62. Calcium is 8, with a phosphorus of 5.4. Glucose is 97. Blood cultures are negative. Progress note dated August 09, 2023. 83-year-old male seen today in room 378. The patient is currently on 3 L of oxygen. NG tube remains in place. He is getting D5 with half-normal saline at 100 cc an hour. The patient has significant abdominal pain on palpation of the abdomen. Labs today include a white count 9.3, hemoglobin 10.8, hematocrit 33.9, and a platelet count of 355,000. Sodium 140, potassium 4.4, chlorides 110, CO2 22, BUN 87, and creatinine 5.53. Glucose is 116. Albumin is 2. All microbiologic sampling is thus far negative. Progress note dated August 10, 2023. 83-year-old male seen again in room 378. The patient again pulled out his NG tube. The patient is on room air. The patient is getting TPN at 30 cc an hour. The patient still has significant abdominal discomfort on palpation. I count 10.5, hemoglobin 10.7, hematocrit 33.8, and platelet count is 384,000. Sodium 140, potassium 3.8, chlorides 107, CO2 20, anion gap 13, BUN 92, creatinine 5.60. Glucose is 123. Magnesium 1.9. Phosphorus 5.2. Progress note dated August 11, 2023. 83-year-old male seen today in room 377. Currently, the patient is receiving hemodialysis. He is on room air. The patient is a DO NOT RESUSCITATE patient. He is getting TPN at 48 cc an hour. He continues on Eraxis, and Zosyn. No new laboratory data today as yet, other than a glucose of 106. Chest x-ray from yesterday shows some mild streaky basilar atelectasis. Progress note dated August 12, 2023. 83-year-old male, seen in room 377. Currently, the patient is on room air. The patient is getting TPN at 48 cc an hour. He continues on Eraxis, and meropenem. Current labs include a sodium 133, potassium 3.2, chlorides 102, CO2 24, BUN 37, creatinine 2.53. Glucose is 128. Calcium 7.5. Albumin 1.9. The patient does not appear to be as tender, on palpation of the abdomen, as he has been, on previous days. Progress note dated August 13, 2023. 83-year-old male seen today in room 377. The patient continues on room air. Sa turations are 94%. The rest of his vital signs are relatively stable. The patient continues on TPN at 48 cc an hour, and D5.45, at 100 cc an hour. He also continues on meropenem, and the antifungal, and Eraxis. Current laboratory data includes a sodium 131, potassium 3.3, chlorides 101, CO2 25, BUN 23, creatinine 1.96. Glucose is 115. Albumin is 1.9. Wound cultures were positive for Enterobacter aerogenes, Marybeth albicans, and Enterococcus faecalis. The patient is seen today August 14, 2023 in follow-up on the regular medical floor. He is currently resting in bed. He denies any worsening abdominal pain. He is maintaining O2 saturations in the 90s on room air. He has D5 W and 0.45 normal saline at 100 MLS per hour. He remains on TPN at 40 MLS per hour. Wound cultures were positive for Enterobacter aerogenes, Marybeth albicans, Enterococcus faecalis. White count 11.4. Hemoglobin 9.5. Platelets 358. Sodium 130. Potassium 3.8. Bicarb 25. BUN 28. Creatinine 2.29. Glucose 98. C-reactive protein 6.5. He is continued on meropenem and Eraxis. Continued on bronchodilators. Heparin for DVT prophylaxis. The patient is seen today August 22, 2023 in follow-up on the regular medical floor. He is currently awake and alert in no acute distress. He is maintaining O2 saturations in the 90s on 2 L/min per nasal cannula. His surgery was back on August 08, 2023. He remains on TPN for nutritional support. He is having bowel movements. He is continued on antibiotics in the form of meropenem and Eraxis. Remains on bronchodilators. Remains on heparin for DVT prophylaxis. White count 9.5. Hemoglobin 7.8. Sodium 135. Potassium 4.8. Bicarb 18. BUN 39. Creatinine 1.76. AST 53. ALT 34. Patient was reevaluated today on 08/23/2023, patient seems to be comfortable, not in pulmonary distress, he is on 2 L nasal cannula with O2 sats at 98%, however the patient seems to be a bit more confused, and keeps pulling on his boots, for no specific purpose. Labs today showed relatively normal electrolytes, BUN is 32 creatinine is down to 1.62 patient has no more issues related to his bowel obstruction, his medications were all reviewed, remains being followed by multiple consultants including infectious disease, remains on Eraxis for almost the last 2 weeks. Patient is also receiving Merrem, for almost 2 weeks. Patient is also receiving TPN. Pulmonary kraft we have a mostly on bronchodilators. Reevaluate 08/24/2023, patient is doing well, he definitely denies any shortness of breath cough or wheezing, denies any abdominal pain nausea or vomiting, patie nt seems to be very comfortable, but intermittently confused. Patient remains on TPN, and the plan is to continue TPN until the patient caloric oral count improves. Patient did present initially with small bowel obstruction, and he had adhesions, underwent lysis of adhesions and decompressive enterostomy and done quite well since then. In addition the patient developed acute renal failure. Patient has been steadily improving last creatinine was 1.56 with a BUN of 31 patient did have a temporary hemodialysis. His permacath was removed on August 18 and renal functioning has been steadily improving creatinine is now 1.6 Reevaluate today on 08/25/2023, patient is basically about the same, still having difficulty with maintaining adequate caloric count. Remains on TPN, today is his 14th day of antibiotics, and hopefully this will be discontinued by infectious disease on the case. Nephrology kraft patient creatinine is coming down steadily, and steadily improving, he had a temporary hemodialysis but has not required any dialysis recently.WBC count is 8.5 hemoglobin is 8 basic metabolic profile is normal creatinine today is 1.29 The patient is seen today August 26, 2023 in follow-up on the regular medical floor. He remains quite weak and debilitated. He is maintaining O2 saturations in the 90s on room air. X-ray shows perihilar and basilar opacities. Right upper extremity PICC line in place. Sodium 135. Potassium 4.2. Bicarb 25. BUN 29. Creatinine 1.26. Glucose 107. He was having issues with increased lethargy facial drooping and choking on food. Plan is for PEG tube placement on 08/29/2023. He is continued on Eraxis and meropenem. Remains on TPN for nutritional support. The patient is seen today August 27, 2023 in follow-up on the regular medical floor. He is currently resting in bed. Arousable. Weak and debilitated. CT scan of the brain revealed no acute intracranial process. Neurology is following. Chest x-ray shows similar mild pulmonary vascular congestion with a small right pleural effusion. Is maintaining O2 saturation in the 90s on room a ir. He is afebrile. Hemodynamically stable. Sodium 135. Potassium 4.3. Bicarb 24. BUN 29. Creatinine 1.43. Glucose 113. He is continued on TPN for nutritional support. The plan now is for PEG tube placement on 08/29/2023. The patient is seen today August 28, 2023 in follow-up on the regular medical floor. He remains quite weak and debilitated. He is arousable. He is resting in bed. He is maintaining O2 saturations in the 90s on room air. He is afebrile. Hemodynamically stable. Sodium 135. Potassium 4.2. Bicarb 27. BUN 35. Creatinine 1.28. Glucose 104. The plan is for PEG tube placement tomorrow. He is currently on TPN at 48 MLS per hour. Normal saline at 50 MLS per hour. Continued on Eraxis and meropenem. Heparin for DVT prophylaxis. Objective - Vital Signs Vital signs: Vital Signs Temp 97.6 F 08/28/23 08:31 Pulse 100 08/28/23 12:29 Resp 20 08/28/23 11:02 BP 161/82 08/28/23 12:10 Pulse Ox 94 L 08/28/23 11:02 FiO2 Intake & Output 08/27/23 08/28/23 08/28/23 18:59 06:59 18:59 Intake Total 1052 Output Total 875 550 550 Balance -875 -550 502 Intake: Intake, IV Titration 1052 Amount Mvi, Adult No.4 with Vit 1052 K 10 ml Trace (Conc-1Ml/ Dose) 1 ml Sodium Acetate 56 meq Calcium Gluconate 1 gm Magnesium Sulfate gm 1.5 gm In Amino Acids 5 %/Dextrose 20 % 1,000 ml @ 48 mls/hr IV . [id number] [facility] Rx#:[id number] Output: Urine 875 550 550 Other: Voiding Method Indwelling Catheter Indwelling Catheter Indwelling Catheter - Exam GENERAL EXAM: Alert, weak debilitated 83-year-old male, on room air. HEAD: Normocephalic. EYES: Normal reaction of pupils, equal size. NOSE: Clear with pink turbinates. THROAT: No erythema or exudates. NECK: No masses, no JVD. CHEST: No chest wall deformity. LUNGS: Equal air entry with no crackles, wheeze, rhonchi or dullness. CVS: S1 and S2 normal with no audible murmur, regular rhythm. ABDOMEN: Incision sites clean dry well-approximated. No hepatosplenomegaly, normal bowel sounds, no guarding or rigidity. SPINE: No scoliosis or deformity SKIN: No rashes CENTRAL NERVOUS SYSTEM: No focal deficits, tone is normal in all 4 extremities. EXTREMITIES: There is no peripheral edema. No clubbing, no cyanosis. Peripheral pulses are intact. - Labs CBC & Chem 7: 08/25/23 10:47 08/28/23 12:15 Labs: Abnormal Lab Results - Last 24 Hours (Table) 08/28/23 08/28/23 Range/Units 06:12 12:15 Sodium 135 L (137-145) mmol/L BUN 35 H (9-20) mg/dL Creatinine 1.28 H (0.66-1.25) mg/dL Glucose 104 H (74-99) mg/dL POC Glucose (mg/dL) 113 H (70-110) mg/dL Calcium 8.3 L (8.4-10.2) mg/dL Assessment and Plan Assessment: Abdominal pain in a patient found to have a bowel obstruction and small amount of free fluid status post lysis of adhesions and decompressive enterostomy on 08/08/2023 Acute hypoxemic respiratory failure secondary to above, history of COPD but is a lifelong non-smoker recovered and on room air. There is no concerns regarding aspiration Dysphagia and aspiration, plan is for PEG tube placement on 08/29/2023 continued on TPN for nutritional support History of coronary disease with previous stent placement Hypertension Hyperlipidemia Hypothyroidism Dementia Lifelong non-smoker Plan: The patient was seen and evaluated Labs and medications reviewed Plan is for PEG tube placement 08/29/2023 Remains on TPN for nutritional support He is quite frail and debilitated DNR/DNI CODE STATUS I have personally seen and examined the patient, performed the documentation and the assessment and plan as written. Number of minutes spent on the visit: 10.
[2023-08-28 16:30] LABS: Glucose,Whole Blood 106 mg/dL (70-110)
[2023-08-28] MEDS: LABETALOL 5 MG/ML VIAL MDV IV PRN (16:39)
[2023-08-29 00:21] LABS: Glucose,Whole Blood 105 mg/dL (70-110)
[2023-08-29 06:09] LABS: Glucose,Whole Blood 117 mg/dL (70-110)
--- NOTE | 2023-08-29 10:20 | P.PN ---
Subjective Patient is seen in follow-up for acute kidney injury on chronic kidney disease, currently hemodialysis dependent. Receiving TPN. On room air. Last dialysis August 12, 2023. Dialysis catheter now removed. Nonoliguric. Poor historian. Vital signs are stable. General: No acute distress. Resting in bed. HEENT: Head exam is unremarkable. LUNGS: No audible rhonchi or wheezes. HEART: Rate and Rhythm are regular. ABDOMEN: Nontender. EXTREMITITES: No edema. Objective - Vital Signs Vital signs: Vital Signs Temp 94.8 F L 08/29/23 08:12 Pulse 92 08/29/23 09:49 Resp 20 08/29/23 08:12 BP 162/81 08/29/23 08:12 Pulse Ox 97 08/29/23 09:38 FiO2 Intake & Output 08/28/23 08/29/23 08/29/23 18:59 06:59 18:59 Intake Total 1052 995.2 Output Total 550 1350 Balance 502 -354.8 Intake: Intake, IV Titration 1052 995.2 Amount Mvi, Adult No.4 with Vit 1052 995.2 K 10 ml Trace (Conc-1Ml/ Dose) 1 ml Sodium Acetate 56 meq Calcium Gluconate 1 gm Magnesium Sulfate gm 1.5 gm In Amino Acids 5 %/Dextrose 20 % 1,000 ml @ 48 mls/hr IV . [id number] [facility] Rx#:[id number] Output: Urine 550 1350 Other: Voiding Method Indwelling Catheter Indwelling Catheter Indwelling Catheter - Labs CBC & Chem 7: 08/25/23 10:47 08/28/23 12:15 Labs: Abnormal Lab Results - Last 24 Hours (Table) 08/28/23 08/29/23 Range/Units 12:15 06:07 Sodium 135 L (137-145) mmol/L BUN 35 H (9-20) mg/dL Creatinine 1.28 H (0.66-1.25) mg/dL Glucose 104 H (74-99) mg/dL POC Glucose (mg/dL) 117 H (70-110) mg/dL Calcium 8.3 L (8.4-10.2) mg/dL Assessment and Plan Plan: Assessment: 1. Acute kidney injury secondary to hemodynamic ATN. No hydronephrosis noted on CAT scan. Started on hemodialysis August 10, 2023. Last dialysis August 12, 2023. Permacath removed August 19, 2023. Renal function improved. Creatinine 1.28 yesterday. Nonoliguric. 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 Heme/onc following. 2. Chronic kidney disease stage IIIb with baseline creatinine 1.3-1.5 secondary to nephrosclerosis. 3. Partial small bowel obstruction. Receiving TPN. Surgery following. 4. Metabolic acidosis secondary to acute kidney injury and IV fluids. Better. 5. Atrial tachycardia status post Cardizem drip. On metoprolol. Cardiology following. 6. Anemia. Iron deficiency noted - s/p IV iron. On Aranesp. 7. Hyperkalemia secondary to acute kidney injury. Improved. Plan: Maintain TPN per surgery. Maintain normal saline. Avoid nephrotoxins. Continue to monitor renal function and urine output. Maintain Dow catheter. Preserved EF noted on echo. Hospice being considered.
[2023-08-29 11:07] LABS: Basophils # (A) 0.1 k/uL (0-0.2); Basophils % (A) 1 %; Eosinophils # (A) 0.7 k/uL (0-0.7); Eosinophils % (A) 7 %; HCT 26.9 % (39.0-53.0); HGB 8.8 gm/dL (13.0-17.5); Lymphocytes # (A) 1.2 k/uL (1.0-4.8); Lymphocytes % (A) 11 %; MCHC 32.7 g/dL (31.0-37.0); MCV 88.8 fL (80.0-100.0); Mean Platelet Volume 6.8; Monocytes # (A) 1.1 k/uL (0-1.0); Monocytes % (A) 11 %; Neutrophils % (A) 67 %; Platelet Count 638 k/uL (150-450); RBC 3.03 m/uL (4.30-5.90); WBC 10.4 k/uL (3.8-10.6)
[2023-08-29 11:20] LABS: ALT 25 U/L (4-49); AST 51 U/L (17-59); African American GFR (CKD) 60 (>60 ml/min/1.73 sqM); Albumin 2.4 g/dL (3.5-5.0); Alkaline Phosphatase 218 U/L (38-126); Anion Gap 4 mmol/L; Bilirubin, Delta 0.2 mg/dL (0.0-0.2); Bilirubin,Unconjugated 0.3 mg/dL (0.0-1.1); Blood Urea Nitrogen 33 mg/dL (9-20); Calcium 8.2 mg/dL (8.4-10.2); Carbon Dioxide 26 mmol/L (22-30); Chloride 105 mmol/L (98-107); Glucose 102 mg/dL (74-99); Magnesium 1.9 mg/dL (1.6-2.3); Non-African American GFR(CKD) 52 (>60 ml/min/1.73 sqM); Phosphorus 3.5 mg/dL (2.5-4.5); Sodium 135 mmol/L (137-145); Total Bilirubin 0.5 mg/dL (0.2-1.3); Total Protein 5.8 g/dL (6.3-8.2)
[2023-08-29 12:06] LABS: Glucose,Whole Blood 114 mg/dL (70-110)
[2023-08-29 12:24] LABS: T4, Free (Free Thyroxine) 0.82 ng/dL (0.78-2.19)
--- NOTE | 2023-08-29 12:25 | P.PN ---
Subjective Progress Note Date: 08/29/23 CHIEF COMPLAINT: Abdominal pain HISTORY OF PRESENT ILLNESS: Patient with small bowel obstruction status post robotic assisted laparoscopic lysis of adhesions and decompressive enterostomy on 08/08/2023. Family is leaning towards hospice and comfort care. They have declined the PEG tube. PHYSICAL EXAM: VITAL SIGNS: Reviewed GENERAL: Well-developed in no acute distress. HEENT: No sclera icterus. Extraocular movements grossly intact. Moist buccal mucosa. Head is atraumatic, normocephalic. Hears conversational speech. No nasal drainage. NECK: Supple without lymphadenopathy. CHEST: Non-labored respirations and equal bilateral excursions. CARDIOVASCULAR: Palpable 2+ radial pulses. ABDOMEN: Nondistended. Nontender. No signs of peritonitis. nontender. Incision sites clean dry and intact. MUSCULOSKELETAL: No clubbing or cyanosis. NEUROLOGIC: No focal or lateralizing signs. Cranial nerves II through XII grossly intact. PSYCH: confused SKIN: Well perfused. Good skin turgor. ASSESSMENT: 1. Small bowel obstruction due to adhesion, lower pelvis left lower quadrant status post lysis of adhesions and decompressive enterostomy 2. Expected ileus due to physical inactivity, spinal stenosis and chronic back pain and acute renal failure 3. Acute renal failure 4. Sigmoid diverticulosis 5. Left lower quadrant abdominal pain 6. Internal hernia pelvis 7. Poor oral intake, failed swallow eval, possible aspiration PLAN: -Family likely proceeding with hospice and comfort care later today -Family has declined PEG tube placement -Surgical service will sign off. Please call with any questions or concerns Physician Butt Sawyer note has been reviewed by physician. Signing provider agrees with the documented findings, assessment, and plan of care. Objective - Vital Signs Vital signs: Vital Signs Temp 94.8 F L 08/29/23 08:12 Pulse 94 08/29/23 12:10 Resp 20 08/29/23 11:13 BP 165/77 08/29/23 11:13 Pulse Ox 97 08/29/23 11:13 FiO2 Intake & Output 08/28/23 08/29/23 08/29/23 18:59 06:59 18:59 Intake Total 1052 995.2 Output Total 550 1350 Balance 502 -354.8 Weight 73 kg Intake: Intake, IV Titration 1052 995.2 Amount Mvi, Adult No.4 with Vit 1052 995.2 K 10 ml Trace (Conc-1Ml/ Dose) 1 ml Sodium Acetate 56 meq Calcium Gluconate 1 gm Magnesium Sulfate gm 1.5 gm In Amino Acids 5 %/Dextrose 20 % 1,000 ml @ 48 mls/hr IV . [id number] [facility] Rx#:[id number] Output: Urine 550 1350 Other: Voiding Method Indwelling Catheter Indwelling Catheter Indwelling Catheter - Labs CBC & Chem 7: 08/29/23 10:27 08/29/23 10:27 Labs: Abnormal Lab Results - Last 24 Hours (Table) 08/28/23 08/29/23 08/29/23 Range/Units 12:15 06:07 10:27 RBC (4.30-5.90) m/uL Hgb (13.0-17.5) gm/dL Hct (39.0-53.0) % Plt Count (150-450) k/uL Monocytes # (0-1.0) k/uL Sodium 135 L 135 L (137-145) mmol/L BUN 35 H 33 H (9-20) mg/dL Creatinine 1.28 H 1.26 H (0.66-1.25) mg/dL Glucose 104 H 102 H (74-99) mg/dL POC Glucose (mg/dL) 117 H (70-110) mg/dL Calcium 8.3 L 8.2 L (8.4-10.2) mg/dL Alkaline Phosphatase 218 H (38-126) U/L Total Protein 5.8 L (6.3-8.2) g/dL Albumin 2.4 L (3.5-5.0) g/dL TSH 37.100 H (0.465-4.680) mIU/L 08/29/23 08/29/23 Range/Units 10:27 12:04 RBC 3.03 L (4.30-5.90) m/uL Hgb 8.8 L (13.0-17.5) gm/dL Hct 26.9 L (39.0-53.0) % Plt Count 638 H (150-450) k/uL Monocytes # 1.1 H (0-1.0) k/uL Sodium (137-145) mmol/L BUN (9-20) mg/dL Creatinine (0.66-1.25) mg/dL Glucose (74-99) mg/dL POC Glucose (mg/dL) 114 H (70-110) mg/dL Calcium (8.4-10.2) mg/dL Alkaline Phosphatase (38-126) U/L Total Protein (6.3-8.2) g/dL Albumin (3.5-5.0) g/dL TSH (0.465-4.680) mIU/L
[2023-08-29] MEDS: GLYCERIN CHILD SUPPOSITORY 1 EACH RECTAL ONE (13:47)
--- NOTE | 2023-08-29 14:19 | P.PN ---
Subjective Progress Note Date: 08/29/23 Progress note Date of service 08/29/[address] Griffin Today patient seen and evaluated at bedside [id number] Discussed with his daughter the POA Edwige over 30-minute with the description of the current medication and the current illness and the suspicious of myxedema coma with the persistent elevation of TSH with out improvement with the use of IV levothyroxine 80 mcg/day with the discussion with the family and their decision for end-of-life and the treatment for myxedema coma with a strong suspicious As discussed with the POA will give the patient a trial of treatment as discussed with the up to date with the use of liothyronine as well as adjusting the dose for levothyroxine and give the chance if the patient will be improving however that will be given IV I discussed it with Mary the pharmacist And they will find as is not formulary in the hospital and I did discuss with him this is the suspicious of the myxedema coma which is rare but could be happening and they will find the treatment as written preposition request for using these medication and to be started as soon as possible with the dose is: #1 liothyronine loading dose 5 to 20 mcg because of his age we will start 15 mcgfollowed by maintenance dose 2.5 to 10 mcg and will be starting him on 5 mcg every 8 hour., Will be increasing his Levothyroid to 100 mcg/day IV as well give him 1 initial dose recommended and we will be giving him 300 mcg 1 dose stat and discussed clearly with the pharmacy doctor. Inpatient pharmacy. Patient currently Temperature recorded 94.8 FL axillary it is not a core temperature and and the pulse rate 95/min regular to 100/min blood pressure 162/81 and he is covered with metoprolol IV as well as labetalol. His laboratory today WBC 10.4, hemoglobin 8.8, hematocrit 26.9, platelet count 638, Sodium 135 and potassium 4, chloride 105, and carbon oxide 26, anion gap 4, BUN 33, creatinine 1.6 good urine output eGFR 52 with a chronic kidney disease stage III and history return to his baseline. Calcium 8.2, phosphorus 3.5, magnesium 1.9, total bilirubin 0.5, and alkaline phosphatase 218 albumin 2.4 and protein 5.8 and prealbumin is pending and TSH 37.100 and free T4, 0.82 Serum cortisol level is pending. Patient seen today and he is responding to verbal stimuli and open his eyes and moaning, moving his extremities on purposefully. Oropharynx natural teeth. Neck was supple no JVD no thyromegaly no lymphadenopathy trachea midline Chest: Spontaneous breathing comfortable no wheezes no rales. Heart he has preserved ejection fraction, hypertension with hypertensive heart disease however is reasonable at this time no hypotension Renal good urine output with the BUN and creatinine stable GI: He has a positive bowel sounds no BM will start the glycerin suppository once. Dow catheter in place with urinal. Extremities no edema and positive pulses bilateral. And he wearing the thrombotic stocking. Assessment: For 1 highly suspicious of myxedema coma and newly started treatment. As discussed with the caregiver there is a chance control for today's EF recover with the full treatment. 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 Added to his old diagnosis. Will start him on liothyronine Adjusting the dose of levothyroxine IV. Family agreed with the plan. Total time 50% with the patient and family 1 hour thank you Objective - Vital Signs Vital signs: Vital Signs Temp 94.8 F L 08/29/23 08:12 Pulse 92 08/29/23 13:24 Resp 20 08/29/23 11:13 BP 152/73 08/29/23 13:14 Pulse Ox 97 08/29/23 11:13 FiO2 Intake & Output 08/28/23 08/29/23 08/29/23 18:59 06:59 18:59 Intake Total 1052 995.2 Output Total 550 1350 650 Balance 502 -354.8 -650 Weight 73 kg Intake: Intake, IV Titration 1052 995.2 Amount Mvi, Adult No.4 with Vit 1052 995.2 K 10 ml Trace (Conc-1Ml/ Dose) 1 ml Sodium Acetate 56 meq Calcium Gluconate 1 gm Magnesium Sulfate gm 1.5 gm In Amino Acids 5 %/Dextrose 20 % 1,000 ml @ 48 mls/hr IV . [id number] [facility] Rx#:[id number] Output: Urine 550 1350 650 Other: Voiding Method Indwelling Catheter Indwelling Catheter Indwelling Catheter # Bowel Movements 0 - Labs CBC & Chem 7: 08/29/23 10:27 08/29/23 10:27 Labs: Abnormal Lab Results - Last 24 Hours (Table) 08/29/23 08/29/23 08/29/23 Range/Units 06:07 10:27 10:27 RBC 3.03 L (4.30-5.90) m/uL Hgb 8.8 L (13.0-17.5) gm/dL Hct 26.9 L (39.0-53.0) % Plt Count 638 H (150-450) k/uL Monocytes # 1.1 H (0-1.0) k/uL Sodium 135 L (137-145) mmol/L BUN 33 H (9-20) mg/dL Creatinine 1.26 H (0.66-1.25) mg/dL Glucose 102 H (74-99) mg/dL POC Glucose (mg/dL) 117 H (70-110) mg/dL Calcium 8.2 L (8.4-10.2) mg/dL Alkaline Phosphatase 218 H (38-126) U/L Total Protein 5.8 L (6.3-8.2) g/dL Albumin 2.4 L (3.5-5.0) g/dL TSH 37.100 H (0.465-4.680) mIU/L 08/29/23 Range/Units 12:04 RBC (4.30-5.90) m/uL Hgb (13.0-17.5) gm/dL Hct (39.0-53.0) % Plt Count (150-450) k/uL Monocytes # (0-1.0) k/uL Sodium (137-145) mmol/L BUN (9-20) mg/dL Creatinine (0.66-1.25) mg/dL Glucose (74-99) mg/dL POC Glucose (mg/dL) 114 H (70-110) mg/dL Calcium (8.4-10.2) mg/dL Alkaline Phosphatase (38-126) U/L Total Protein (6.3-8.2) g/dL Albumin (3.5-5.0) g/dL TSH (0.465-4.680) mIU/L
[2023-08-29] MEDS: [UNRECOGNIZED DRUG - REMARK] IV SCH (14:48)
[2023-08-29] MEDS: LEVOTHYROXINE IVP 100 MCG/5 ML VIAL IV STA (14:49)
[2023-08-29] MEDS: HYDROCORTISONE SUCCINATE 100 MG/2 ML VIAL IV SCH (14:58)
[2023-08-29 18:40] LABS: Glucose,Whole Blood 138 mg/dL (70-110)
[2023-08-29 22:07] LABS: Prealbumin 9.5 mg/dL (18.0-42.0)
[2023-08-30 00:10] LABS: Glucose,Whole Blood 147 mg/dL (70-110)
[2023-08-30] MEDS: [UNRECOGNIZED DRUG - REMARK] IV SCH (02:41)
--- NOTE | 2023-08-30 03:47 | EEG ---
ELECTROENCEPHALOGRAM REPORT DATE OF SERVICE: 08/29/2023. ACTIVATION PROCEDURE: This is an 83-year-old gentleman with altered mental status. The video EEG is obtained to evaluate for seizure epileptiform activity. RELEVANT MEDICATION: The patient is not on any antiepileptic drugs. EEG TYPE: Routine 21 channel EEG is performed with video using the 10/20 electrode placement system. DESCRIPTION: Background consists of [id number] voltage of 5 to 6 hertz activity and at times, the background consists of diffuse nonrhythmic polymorphic delta activity. There is no physiological stage 2 sleep architecture. There is no focal slowing. Interictal and ictal is none. ACTIVATION PROCEDURE: Photic stimulation did not evoke a posterior driving response. There is no abnormality during the photic stimulation. Hyperventilation is not performed. CLINICAL INTERPRETATION: This is an abnormal routine EEG. The background slowing is suggestive of moderate to severe encephalopathy. There is no focal slowing, epileptiform discharge, or seizure on the EEG. Clinical correlation is recommended. DC / LEEANNE: [id number] / MTDD
[2023-08-30 06:15] LABS: Glucose,Whole Blood 132 mg/dL (70-110)
[2023-08-30 10:29] LABS: African American GFR (CKD) 63 (>60 ml/min/1.73 sqM); Anion Gap 3 mmol/L; Blood Urea Nitrogen 35 mg/dL (9-20); Calcium 8.4 mg/dL (8.4-10.2); Carbon Dioxide 26 mmol/L (22-30); Chloride 108 mmol/L (98-107); Glucose 114 mg/dL (74-99); Non-African American GFR(CKD) 54 (>60 ml/min/1.73 sqM); Potassium 3.8 mmol/L (3.5-5.1); Sodium 137 mmol/L (137-145)
[2023-08-30] MEDS: LEVOTHYROXINE IVP 100 MCG/5 ML VIAL IV SCH (10:49)
--- NOTE | 2023-08-30 10:51 | P.PN ---
Subjective Patient is seen in follow-up for acute kidney injury on chronic kidney disease. Status post hemodialysis this admission. Now renal function has been stable without hemodialysis and dialysis catheter has been removed. Receiving TPN. On room air. Vital signs are stable. General: No acute distress. Resting in bed. HEENT: Head exam is unremarkable. LUNGS: No audible rhonchi or wheezes. HEART: Rate and Rhythm are regular. ABDOMEN: Nontender. EXTREMITITES: No edema. Objective - Vital Signs Vital signs: Vital Signs Temp 97.7 F 08/30/23 04:00 Pulse 92 08/30/23 09:39 Resp 20 08/30/23 04:00 BP 150/73 08/30/23 04:00 Pulse Ox 96 08/30/23 04:00 FiO2 Intake & Output 08/29/23 08/30/23 08/30/23 18:59 06:59 18:59 Output Total 975 900 Balance -975 -900 Weight 73 kg Output: Urine 975 900 Other: Voiding Method Indwelling Catheter Indwelling Catheter # Bowel Movements 0 - Labs CBC & Chem 7: 08/29/23 10:27 08/30/23 09:29 Labs: Abnormal Lab Results - Last 24 Hours (Table) 08/29/23 08/29/23 08/29/23 Range/Units 10:27 10:27 12:04 RBC 3.03 L (4.30-5.90) m/uL Hgb 8.8 L (13.0-17.5) gm/dL Hct 26.9 L (39.0-53.0) % Plt Count 638 H (150-450) k/uL Monocytes # 1.1 H (0-1.0) k/uL Sodium 135 L (137-145) mmol/L Chloride (98-107) mmol/L BUN 33 H (9-20) mg/dL Creatinine 1.26 H (0.66-1.25) mg/dL Glucose 102 H (74-99) mg/dL POC Glucose (mg/dL) 114 H (70-110) mg/dL Calcium 8.2 L (8.4-10.2) mg/dL Alkaline Phosphatase 218 H (38-126) U/L Total Protein 5.8 L (6.3-8.2) g/dL Albumin 2.4 L (3.5-5.0) g/dL Prealbumin 9.5 L (18.0-42.0) mg/dL TSH 37.100 H (0.465-4.680) mIU/L 08/29/23 08/30/23 08/30/23 Range/Units 18:38 00:09 06:06 RBC (4.30-5.90) m/uL Hgb (13.0-17.5) gm/dL Hct (39.0-53.0) % Plt Count (150-450) k/uL Monocytes # (0-1.0) k/uL Sodium (137-145) mmol/L Chloride (98-107) mmol/L BUN (9-20) mg/dL Creatinine (0.66-1.25) mg/dL Glucose (74-99) mg/dL POC Glucose (mg/dL) 138 H 147 H 132 H (70-110) mg/dL Calcium (8.4-10.2) mg/dL Alkaline Phosphatase (38-126) U/L Total Protein (6.3-8.2) g/dL Albumin (3.5-5.0) g/dL Prealbumin (18.0-42.0) mg/dL TSH (0.465-4.680) mIU/L 08/30/23 Range/Units 09:29 RBC (4.30-5.90) m/uL Hgb (13.0-17.5) gm/dL Hct (39.0-53.0) % Plt Count (150-450) k/uL Monocytes # (0-1.0) k/uL Sodium (137-145) mmol/L Chloride 108 H (98-107) mmol/L BUN 35 H (9-20) mg/dL Creatinine (0.66-1.25) mg/dL Glucose 114 H (74-99) mg/dL POC Glucose (mg/dL) (70-110) mg/dL Calcium (8.4-10.2) mg/dL Alkaline Phosphatase (38-126) U/L Total Protein (6.3-8.2) g/dL Albumin (3.5-5.0) g/dL Prealbumin (18.0-42.0) mg/dL TSH (0.465-4.680) mIU/L Assessment and Plan Plan: Assessment: 1. Acute kidney injury secondary to hemodynamic ATN. No hydronephrosis noted on CAT scan. Started on hemodialysis August 10, 2023. Last dialysis August 12, 2023. Permacath removed August 19, 2023. Renal function improved. Creatinine 1.21. Nonoliguric. 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 Heme/onc following. 2. Chronic kidney disease stage IIIb with baseline creatinine 1.3-1.5 secondary to nephrosclerosis. 3. Partial small bowel obstruction. Receiving TPN. Surgery following. 4. Metabolic acidosis secondary to acute kidney injury and IV fluids. Better. 5. Atrial tachycardia status post Cardizem drip. On metoprolol. Cardiology following. 6. Anemia. Iron deficiency noted - s/p IV iron. On Aranesp. 7. Hyperkalemia secondary to acute kidney injury. Improved. Plan: Maintain TPN per surgery. Maintain normal saline. Avoid nephrotoxins. Continue to monitor renal function and urine output. Maintain Dow catheter. Preserved EF noted on echo. Hospice being considered.
[2023-08-30 12:11] LABS: Glucose,Whole Blood 108 mg/dL (70-110)
--- NOTE | 2023-08-30 13:05 | P.PN ---
Subjective Progress Note Date: 08/30/23 Progress note Date of service: 08/30/[address] Griffin. Patient seen [id number] Patient currently wake up and able to answer questions with the underlying myxedema coma and start to function. Will ask speech pathology to reevaluate for today and tomorrow. We expected to have also liothyronine injection IV 10 mcg which is only available in [place]. Discussion: I did order liothyronine yesterday and thyroid requested for nonformulary because of myxedema coma his emergency endocrine Discussed with pharmacist Dr. Hernandez and they stated that they do not have it and [facility] and they try to get it and it does have Subsequently pharmacist Flory Segura and I talked to her as well stated that is not available in [facility] system and the only bile able to get is a 10 mEq which is 1 dose loading and we do not have any for 4 doses which I encourage be having available to the patient however we will give the patient what we have at this time. Yesterday we gave patient loading dose of 300 mcg as a loading dose and increase relievable thyroxine 200 mcg IV daily today no changes happened Patient awake alert able to communicate verbally open his eyes and will try to do speech pathology evaluation for 2 days to see with the injection is improvement meanwhile will check TSH and free T4 on Tuesday tomorrow after patient received the liothyronine injection, I did speak again with the pharmacist Christal and she will try to accelerate obtaining the dose through the carrier from [place] which the dose is available. Patient currently seen and evaluated and he was purposely moving his arm able to put it behind his head and able to communicate. Temperature is 97.8 F axillary is heart rate 92-94 and peripheral pulse is 88. Blood pressure 145/70 with a mean 95 his oxygen saturation 96% on room air. Is sodium 137, potassium 3.8, chloride 108, carbon dioxide 26, anion gap 3, BUN 35, creatinine 1.21 and EGFR on non- 54 with the baseline improvement with a history of chronic kidney disease stage III. Glucose 114 and POC glucose 108., Calcium was corrected 8.4, phosphorus 3, magnesium 2. On exam: EEG was read by Dr. Rudy Bautista urologist indicating encephalopathy. Patient able to talk to me move stable pupils equal reactive responding to verbal stimuli as improvement, natural teeth. Neck was supple no JVD no thyromegaly no lymphadenopathy trachea midline. Chest: Normal breath sounds comfortable no wheezes no rhonchi's Heart: Regular sinus rhythm with preserved ejection fraction Abdomen soft positive bowel sounds no tenderness status post robotic lap aroscopic lysis of adhesion by Dr. Pinzon Extremities with the thrombotic stocking. Neurologically patient waking up. Assessment: 1. Myxedema coma currently gradually recovering. 2. Severe hypothyroidism. 3. Acute hypoxic respiratory failure recovered 4. Obtundation lethargy has been improving significantly after the treatment rendered with the thyroid however we waiting for liothyronine injection to be obtained by the pharmacist which was nonformulary 5. Status post prolonged starvation with hypoproteinemia hypoalbuminemia gradually improving with prealbumin still low significantly 6. Currently on the TPN and Intralipid 7. Status post small bowel obstruction followed by severe ileus after the surgical intervention with lysis of adhesion by Dr. Pinzon 8. Procedure was robotic laparoscopic adhesion lysis 9 complicated course with with the acute kidney injury and hemodialysis started on 06 September 2023 and the last hemodialysis was on August 12, 2023 with the temporary subclavian dialysis catheter was placed by Dr. Shannon. 10. Placement of midline lines because of inability to obtain lines peripherally 11. On admission acute tachycardia seen by cardiology, with the presence of small bowel obstruction at that time followed by ileus placed on metoprolol IV 5 mg every [address] APOLLO Bailey grain blender. Which continued 12. History of underlying hypoglycemia with D5 normal saline followed by TPN and Intralipid 13. Hyperkalemia corrected with the dialysis. 14. Hypertension with hypertensive heart disease continue to be monitored with the adjustment of the medication. Plan: 1. Patient started to wake up and aware 2. Will call the speech pathology for evaluation today and tomorrow specially after he received the liothyronine 3. Possible starting feeding if the dysphagia has been resolved secondary to severe myxedema coma. 4. With the hope of improvement patient may be able to eat and may be need to continue oral medication and may need shelter for more rehabilitation Objective - Vital Signs Vital signs: Vital Signs Temp 97.8 F 08/30/23 08:00 Pulse 87 08/30/23 11:24 Resp 20 08/30/23 08:00 BP 145/70 04/23/24 08:00 Pulse Ox 96 08/30/23 08:00 FiO2 Intake & Output 08/29/23 08/30/23 08/30/23 18:59 06:59 18:59 Output Total 975 900 Balance -975 -900 Weight 73 kg Output: Urine 975 900 Other: Voiding Method Indwelling Catheter Indwelling Catheter Indwelling Catheter # Bowel Movements 0 - Labs CBC & Chem 7: 08/29/23 10:27 08/30/23 09:29 Labs: Abnormal Lab Results - Last 24 Hours (Table) 08/29/23 08/29/23 08/30/23 Range/Units 10:27 18:38 00:09 Chloride (98-107) mmol/L BUN (9-20) mg/dL Glucose (74-99) mg/dL POC Glucose (mg/dL) 138 H 147 H (70-110) mg/dL Prealbumin 9.5 L (18.0-42.0) mg/dL 08/30/23 08/30/23 Range/Units 06:06 09:29 Chloride 108 H (98-107) mmol/L BUN 35 H (9-20) mg/dL Glucose 114 H (74-99) mg/dL POC Glucose (mg/dL) 132 H (70-110) mg/dL Prealbumin (18.0-42.0) mg/dL
--- NOTE | 2023-08-30 14:26 | P.PN ---
Subjective Progress Note Date: 08/30/23 I am seeing the patient for the first time during this admission. Please refer to Dr. Zamarripa and Dr. Olguin's notes for further details. It seems the patient has altered mental status change. Hospice is consulted. Objective - Vital Signs Vital signs: Vital Signs Temp 97.8 F 08/30/23 08:00 Pulse 94 08/30/23 12:00 Resp 20 08/30/23 08:00 BP 162/79 08/30/23 12:00 Pulse Ox 95 08/30/23 12:00 FiO2 Intake & Output 08/29/23 08/30/23 08/30/23 18:59 06:59 18:59 Intake Total 250 Output Total 975 900 Balance -975 -900 250 Weight 73 kg Intake: Intake, IV Titration 250 Amount Meropenem 1 gm In Sodium 100 Chloride 0.9% 100 ml @ 33 .3 mls/hr IVPB Q12HR [facility] Rx#:[id number] Sodium Chloride 0.9% 500 150 ml 500 ml @ 0 mls/hr IV . [facility] Rx#: [id number] Output: Urine 975 900 Other: Voiding Method Indwelling Catheter Indwelling Catheter Indwelling Catheter # Bowel Movements 0 - Exam General: Lying in bed and is not in acute distress. Neuro: Limited. Is moderately drowsy but is awakeable to voice. Is oriented to self. Upon asking where he was at? He did not respond then I asked if he was at home and he stated "No". He is slowing following commands. He correctly name object correctly (pen). Minimal left nasolabial flattening. Motor: Strength is limited in assessment but lifting uppers above gravity and lowers (left lower appears stronger than right but again limited). - Labs CBC & Chem 7: 08/29/23 10:27 08/30/23 09:29 Labs: Abnormal Lab Results - Last 24 Hours (Table) 08/29/23 08/29/23 08/30/23 Range/Units 10:27 18:38 00:09 Chloride (98-107) mmol/L BUN (9-20) mg/dL Glucose (74-99) mg/dL POC Glucose (mg/dL) 138 H 147 H (70-110) mg/dL Prealbumin 9.5 L (18.0-42.0) mg/dL 08/30/23 08/30/23 Range/Units 06:06 09:29 Chloride 108 H (98-107) mmol/L BUN 35 H (9-20) mg/dL Glucose 114 H (74-99) mg/dL POC Glucose (mg/dL) 132 H (70-110) mg/dL Prealbumin (18.0-42.0) mg/dL Assessment and Plan Assessment: Altered mental status, likely due to metabolic encephalopathy, abnormal thyroid and septic encephalopathy (+ve Enterocccus faecalis and Enterobacter aerogenes on wound culture). Patient has prolonged hospitalization, likely resulting in encephalopathy, on top of his baseline moderate dementia. Reasons of encephalopathy multifactorial as mentioned below. * Dementia, at least moderate degree. This probably has got worse with recent hospitalization. * Small bowel obstruction, status post robotic assisted da Artie laparoscopic with lysis of adhesions and decompressive antrostomy. * Recent acute renal failure, requiring dialysis. Renal functions improved. * Hypothyroidism * Moderate renal insufficiency * Anemia * Worsening perihilar and bibasilar opacities per chest x-ray. * History of Bradley's palsy Plan: * Patient's dementia probably has got worse with recent prolonged hospitalization, and multiple significant medical/surgical conditions. * His mentation probably will improve, once these conditions comes under control. However typically patients with dementia gets a permanent setback from these kind of hospitalizations, and do not return to baseline level of functioning even after complete resolution of medical/surgical conditions. * Dr. Zamarripa recommends resuming Aricept 10 mg, and Namenda 10 mg twice daily when medically cleared. * Patient has developed hypothyroidism, and the dose of thyroxine has been adjusted. * Routine EEG: Is abnormal. The background slowing is suggestive of moderate to severe encephalopathy. There is no focal slowing, epileptiform discharge or seizure on the EEG. * Patient currently on Eraxis and meropenem. ID on board. * Hospice is consulted Will follow-up sporadically. Time with Patient: Less than 30
--- NOTE | 2023-08-30 15:08 | P.PN ---
Subjective Progress Note Date: 08/28/23 Principal diagnosis: Reason for follow-up is fever likely abdominal source Patient is a 83-year-old male with a past medical history significant for coronary disease COPD dementia hypertension hyperlipidemia reflux presenting to the hospital for evaluation of abdominal pain bloating has been diagnosed with the distal small bowel obstruction developing a fever concerning for possible abdominal sepsis prompting this consultation.Patient is status post robotic assisted laparoscopic lysis of adhesion extensive and decompressive enterostomy that was completed on 08/08/2023 On today's evaluation that is 08/28/2023, the patient continues to be afebrile, the patient is on room air and breathing comfortably, the Pt remains to be sleepy lethargic however comfortable no vomiting diarrhea did not change reported by the family at the bedside Patient did have a creatinine 1.28 and no CBC was done today Objective - Vital Signs Vital signs: Vital Signs Temp 97.6 F 08/28/23 08:31 Pulse 110 H 08/28/23 08:32 Resp 22 08/28/23 08:31 BP 175/90 08/28/23 08:31 Pulse Ox 95 08/28/23 08:31 FiO2 Intake & Output 08/27/23 08/28/23 08/28/23 18:59 06:59 18:59 Intake Total 1052 Output Total 875 550 Balance -875 -550 1052 Intake: Intake, IV Titration 1052 Amount Mvi, Adult No.4 with Vit 1052 K 10 ml Trace (Conc-1Ml/ Dose) 1 ml Sodium Acetate 56 meq Calcium Gluconate 1 gm Magnesium Sulfate gm 1.5 gm In Amino Acids 5 %/Dextrose 20 % 1,000 ml @ 48 mls/hr IV . [id number] [facility] Rx#:[id number] Output: Urine 875 550 Other: Voiding Method Indwelling Catheter Indwelling Catheter Indwelling Catheter - Exam GENERAL DESCRIPTION: An elderly male up in the chair in no distress RESPIRATORY SYSTEM: Unlabored breathing , decreased breath sounds at bases HEART: S1 S2 regular rate and rhythm , ABDOMEN: Soft , no tenderness EXTREMITIES: No edema feet exam completed with the help of [employer] COORDINATOR - Labs CBC & Chem 7: 08/29/23 10:27 08/30/23 09:29 Labs: Abnormal Lab Results - Last 24 Hours (Table) 08/28/23 Range/Units 06:12 POC Glucose (mg/dL) 113 H (70-110) mg/dL Assessment and Plan (1) Fever Current Visit: Yes Status: Acute Code(s): R50.9 - FEVER, UNSPECIFIED SNOMED Code(s): 161347960 (2) Leukocytosis Current Visit: Yes Status: Acute Code(s): D72.829 - ELEVATED WHITE BLOOD CELL COUNT, UNSPECIFIED SNOMED Code(s): 161862463 (3) Small bowel obstruction Current Visit: Yes Status: Acute Code(s): K56.609 - UNSP INTESTNL OBST, UNSP TO PARTIAL VERSUS COMPLETE OBST SNOMED Code(s): 034408726 (4) Peritonitis Current Visit: Yes Status: Acute Code(s): K65.9 - PERITONITIS, UNSPECIFIED SNOMED Code(s): 92406689 Plan: 1patient with low-grade fever elevated white count and this patient presented to hospital with abdominal pain and bloating and has been diagnosed with the small bowel obstruction likely etiology for his low-grade fever and elevated white count, the patient is status post laparoscopic lysis of adhesion and enterostomy abdominal cultures obtained which are currently growing Enterococcus drug-resistant Enterobacter and Marybeth 2-patient is afebrile, patient white count has been normal 3-patient is on meropenem and Eraxis on the basis of culture patient did have worsening of his mental status changes lethargy, family seem to be refusing PEG tube placement and may be more mature possible hospice will be appropriate for him Dictation was produced using [employer] dictation software. please excuse any grammatical, word or spelling errors. Time with Patient: Less than 30
--- NOTE | 2023-08-30 15:09 | P.PN ---
Subjective Progress Note Date: 08/29/23 Principal diagnosis: Reason for follow-up is fever likely abdominal source Patient is a 83-year-old male with a past medical history significant for coronary disease COPD dementia hypertension hyperlipidemia reflux presenting to the hospital for evaluation of abdominal pain bloating has been diagnosed with the distal small bowel obstruction developing a fever concerning for possible abdominal sepsis prompting this consultation.Patient is status post robotic assisted laparoscopic lysis of adhesion extensive and decompressive enterostomy that was completed on 08/08/2023 On today's evaluation that is 08/29/2023, Patient is afebrile patient is currently on room air and sleepy no vomiting diarrhea or any other changes reported by the nursing staff or headaches remains to be poor family had decided against PEG tube. Patient white count is 10.4, creatinine is 1.26 Objective - Vital Signs Vital signs: Vital Signs Temp 94.8 F L 08/29/23 08:12 Pulse 94 08/29/23 12:10 Resp 20 08/29/23 11:13 BP 165/77 08/29/23 11:13 Pulse Ox 97 08/29/23 11:13 FiO2 Intake & Output 08/28/23 08/29/23 08/29/23 18:59 06:59 18:59 Intake Total 1052 995.2 Output Total 550 1350 Balance 502 -354.8 Weight 73 kg Intake: Intake, IV Titration 1052 995.2 Amount Mvi, Adult No.4 with Vit 1052 995.2 K 10 ml Trace (Conc-1Ml/ Dose) 1 ml Sodium Acetate 56 meq Calcium Gluconate 1 gm Magnesium Sulfate gm 1.5 gm In Amino Acids 5 %/Dextrose 20 % 1,000 ml @ 48 mls/hr IV . [id number] [facility] Rx#:[id number] Output: Urine 550 1350 Other: Voiding Method Indwelling Catheter Indwelling Catheter Indwelling Catheter - Exam GENERAL DESCRIPTION: An elderly male up in the chair in no distress RESPIRATORY SYSTEM: Unlabored breathing , decreased breath sounds at bases HEART: S1 S2 regular rate and rhythm , ABDOMEN: Soft , no tenderness EXTREMITIES: No edema feet - Labs CBC & Chem 7: 08/29/23 10:27 08/30/23 09:29 Labs: Abnormal Lab Results - Last 24 Hours (Table) 08/28/23 08/29/23 08/29/23 Range/Units 12:15 06:07 10:27 RBC (4.30-5.90) m/uL Hgb (13.0-17.5) gm/dL Hct (39.0-53.0) % Plt Count (150-450) k/uL Monocytes # (0-1.0) k/uL Sodium 135 L 135 L (137-145) mmol/L BUN 35 H 33 H (9-20) mg/dL Creatinine 1.28 H 1.26 H (0.66-1.25) mg/dL Glucose 104 H 102 H (74-99) mg/dL POC Glucose (mg/dL) 117 H (70-110) mg/dL Calcium 8.3 L 8.2 L (8.4-10.2) mg/dL Alkaline Phosphatase 218 H (38-126) U/L Total Protein 5.8 L (6.3-8.2) g/dL Albumin 2.4 L (3.5-5.0) g/dL TSH 37.100 H (0.465-4.680) mIU/L 08/29/23 08/29/23 Range/Units 10:27 12:04 RBC 3.03 L (4.30-5.90) m/uL Hgb 8.8 L (13.0-17.5) gm/dL Hct 26.9 L (39.0-53.0) % Plt Count 638 H (150-450) k/uL Monocytes # 1.1 H (0-1.0) k/uL Sodium (137-145) mmol/L BUN (9-20) mg/dL Creatinine (0.66-1.25) mg/dL Glucose (74-99) mg/dL POC Glucose (mg/dL) 114 H (70-110) mg/dL Calcium (8.4-10.2) mg/dL Alkaline Phosphatase (38-126) U/L Total Protein (6.3-8.2) g/dL Albumin (3.5-5.0) g/dL TSH (0.465-4.680) mIU/L Assessment and Plan (1) Fever Current Visit: Yes Status: Acute Code(s): R50.9 - FEVER, UNSPECIFIED SNOMED Code(s): 058884469 (2) Leukocytosis Current Visit: Yes Status: Acute Code(s): D72.829 - ELEVATED WHITE BLOOD CELL COUNT, UNSPECIFIED SNOMED Code(s): 797648491 (3) Small bowel obstruction Current Visit: Yes Status: Acute Code(s): K56.609 - UNSP INTESTNL OBST, UNSP TO PARTIAL VERSUS COMPLETE OBST SNOMED Code(s): 492640473 (4) Peritonitis Current Visit: Yes Status: Acute Code(s): K65.9 - PERITONITIS, UNSPECIFIED SNOMED Code(s): 96999754 Plan: 1patient with low-grade fever elevated white count and this patient presented to hospital with abdominal pain and bloating and has been diagnosed with the small bowel obstruction likely etiology for his low-grade fever and elevated white count, the patient is status post laparoscopic lysis of adhesion and enterostomy abdominal cultures obtained which are currently growing Enterococcus drug-resistant Enterobacter and Marybeth 2-patient is afebrile, patient white count has been normal 3-patient is on meropenem and Eraxis to continue while waiting for the final decision regarding continuation of care versus hospice Dictation was produced using [employer] dictation software. please excuse any grammatical, word or spelling errors. Time with Patient: Less than 30
--- NOTE | 2023-08-30 15:11 | P.PN ---
Subjective Progress Note Date: 08/30/23 Principal diagnosis: Reason for follow-up is fever likely abdominal source Patient is a 83-year-old male with a past medical history significant for coronary disease COPD dementia hypertension hyperlipidemia reflux presenting to the hospital for evaluation of abdominal pain bloating has been diagnosed with the distal small bowel obstruction developing a fever concerning for possible abdominal sepsis prompting this consultation.Patient is status post robotic assisted laparoscopic lysis of adhesion extensive and decompressive enterostomy that was completed on 08/08/2023 On today's evaluation that is 08/30/2023, patient did have a low-grade fever 100 F yesterday afternoon however has been afebrile, patient is breathing comfortably and is currently on room air, patient seem to be slightly more awake and did respond to his name but did not answer any question. No CBC was done today patient creatinine is 1.21 Objective - Vital Signs Vital signs: Vital Signs Temp 97.7 F 08/30/23 04:00 Pulse 84 08/30/23 11:13 Resp 20 08/30/23 04:00 BP 150/73 08/30/23 04:00 Pulse Ox 96 08/30/23 04:00 FiO2 Intake & Output 08/29/23 08/30/23 08/30/23 18:59 06:59 18:59 Output Total 975 900 Balance -975 -900 Weight 73 kg Output: Urine 975 900 Other: Voiding Method Indwelling Catheter Indwelling Catheter # Bowel Movements 0 - Exam GENERAL DESCRIPTION: An elderly male up in the chair in no distress RESPIRATORY SYSTEM: Unlabored breathing , decreased breath sounds at bases HEART: S1 S2 regular rate and rhythm , ABDOMEN: Soft , no tenderness EXTREMITIES: No edema feet - Labs CBC & Chem 7: 08/29/23 10:27 08/30/23 09:29 Labs: Abnormal Lab Results - Last 24 Hours (Table) 08/29/23 08/29/23 08/29/23 Range/Units 10:27 12:04 18:38 Sodium 135 L (137-145) mmol/L Chloride (98-107) mmol/L BUN 33 H (9-20) mg/dL Creatinine 1.26 H (0.66-1.25) mg/dL Glucose 102 H (74-99) mg/dL POC Glucose (mg/dL) 114 H 138 H (70-110) mg/dL Calcium 8.2 L (8.4-10.2) mg/dL Alkaline Phosphatase 218 H (38-126) U/L Total Protein 5.8 L (6.3-8.2) g/dL Albumin 2.4 L (3.5-5.0) g/dL Prealbumin 9.5 L (18.0-42.0) mg/dL TSH 37.100 H (0.465-4.680) mIU/L 08/30/23 08/30/23 08/30/23 Range/Units 00:09 06:06 09:29 Sodium (137-145) mmol/L Chloride 108 H (98-107) mmol/L BUN 35 H (9-20) mg/dL Creatinine (0.66-1.25) mg/dL Glucose 114 H (74-99) mg/dL POC Glucose (mg/dL) 147 H 132 H (70-110) mg/dL Calcium (8.4-10.2) mg/dL Alkaline Phosphatase (38-126) U/L Total Protein (6.3-8.2) g/dL Albumin (3.5-5.0) g/dL Prealbumin (18.0-42.0) mg/dL TSH (0.465-4.680) mIU/L Assessment and Plan (1) Fever Current Visit: Yes Status: Acute Code(s): R50.9 - FEVER, UNSPECIFIED SNOMED Code(s): 778848432 (2) Leukocytosis Current Visit: Yes Status: Acute Code(s): D72.829 - ELEVATED WHITE BLOOD CELL COUNT, UNSPECIFIED SNOMED Code(s): 555855328 (3) Small bowel obstruction Current Visit: Yes Status: Acute Code(s): K56.609 - UNSP INTESTNL OBST, UNSP TO PARTIAL VERSUS COMPLETE OBST SNOMED Code(s): 756033301 (4) Peritonitis Current Visit: Yes Status: Acute Code(s): K65.9 - PERITONITIS, UNSPECIFIED SNOMED Code(s): 60138286 Plan: 1patient with low-grade fever elevated white count and this patient presented to hospital with abdominal pain and bloating and has been diagnosed with the small bowel obstruction likely etiology for his low-grade fever and elevated white count, the patient is status post laparoscopic lysis of adhesion and enterostomy abdominal cultures obtained which are currently growing Enterococcus drug-resistant Enterobacter and Marybeth 2-patient is afebrile, patient white count has been normal 3-patient is slowly waking up and is currently covered with meropenem and Eraxis to continue finishing course of therapy prognosis remains to be guarded Dictation was produced using [employer] software. please excuse any grammatical, word or spelling errors. Time with Patient: Less than 30
[2023-08-30] MEDS: LIOTHYRONINE IV ONE (17:11)
[2023-08-31 00:25] LABS: Glucose,Whole Blood 132 mg/dL (70-110)
[2023-08-31 06:19] LABS: Glucose,Whole Blood 119 mg/dL (70-110)
[2023-08-31 07:16] LABS: African American GFR (CKD) 69 (>60 ml/min/1.73 sqM); Anion Gap 6 mmol/L; Blood Urea Nitrogen 37 mg/dL (9-20); Calcium 8.4 mg/dL (8.4-10.2); Carbon Dioxide 24 mmol/L (22-30); Chloride 110 mmol/L (98-107); Glucose 107 mg/dL (74-99); Non-African American GFR(CKD) 60 (>60 ml/min/1.73 sqM); Phosphorus 3.2 mg/dL (2.5-4.5); Potassium 3.4 mmol/L (3.5-5.1); Sodium 140 mmol/L (137-145)
--- NOTE | 2023-08-31 11:22 | P.PN ---
Subjective Patient is seen in follow-up for acute kidney injury on chronic kidney disease. Status post hemodialysis this admission. Now renal function has been stable without hemodialysis and dialysis catheter has been removed. Receiving TPN and IV fluids. On room air. Vital signs are stable. General: No acute distress. Resting in bed. HEENT: Head exam is unremarkable. LUNGS: No audible rhonchi or wheezes. HEART: Rate and Rhythm are regular. ABDOMEN: Nontender. EXTREMITITES: No edema. Objective - Vital Signs Vital signs: Vital Signs Temp 98 F 08/31/23 08:55 Pulse 87 08/31/23 08:55 Resp 18 08/31/23 08:55 BP 162/74 08/31/23 08:55 Pulse Ox 96 08/31/23 08:55 FiO2 Intake & Output 08/30/23 08/31/23 08/31/23 18:59 06:59 18:59 Intake Total 250 1059 Output Total 1150 Balance 250 -91 Intake: Intake, IV Titration 250 1059 Amount Meropenem 1 gm In Sodium 100 Chloride 0.9% 100 ml @ 33 .3 mls/hr IVPB Q12HR [facility] Rx#:[id number] Mvi, Adult No.4 with Vit 1059 K 10 ml Trace (Conc-1Ml/ Dose) 1 ml Sodium Acetate 70 meq Calcium Gluconate 1 gm Magnesium Sulfate gm 1.5 gm In Amino Acids 5 %/Dextrose 20 % 1,000 ml @ 48 mls/hr IV .Q22H4M [facility] Rx#:[id number] Sodium Chloride 0.9% 500 150 ml 500 ml @ 0 mls/hr IV . [facility] Rx#: [id number] Oral 0 Output: Urine 1150 Other: Voiding Method Indwelling Catheter Indwelling Catheter Indwelling Catheter - Labs CBC & Chem 7: 08/29/23 10:27 08/31/23 06:30 Labs: Abnormal Lab Results - Last 24 Hours (Table) 08/31/23 08/31/23 08/31/23 Range/Units 00:23 06:18 06:30 Potassium 3.4 L (3.5-5.1) mmol/L Chloride 110 H (98-107) mmol/L BUN 37 H (9-20) mg/dL Glucose 107 H (74-99) mg/dL POC Glucose (mg/dL) 132 H 119 H (70-110) mg/dL TSH 14.900 H (0.465-4.680) mIU/L Assessment and Plan Plan: Assessment: 1. Acute kidney injury secondary to hemodynamic ATN. No hydronephrosis noted on CAT scan. Started on hemodialysis August 10, 2023. Last dialysis August 12, 2023. Permacath removed August 19, 2023. Renal function improved. Creatinine 1.12. Nonoliguric. 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 Heme/onc following. 2. Chronic kidney disease stage IIIb with baseline creatinine 1.3-1.5 secondary to nephrosclerosis. 3. Partial small bowel obstruction. Receiving TPN. Surgery following. 4. Metabolic acidosis secondary to acute kidney injury and IV fluids. Better. 5. Atrial tachycardia status post Cardizem drip. On metoprolol. Cardiology following. 6. Anemia. Iron deficiency noted - s/p IV iron. On Aranesp. 7. Hyperkalemia secondary to acute kidney injury. Improved. Now hypokalemic. 8. Hypothyroidism being started on IV liothyronine today. Plan: Maintain TPN per surgery. Maintain normal saline. Avoid nephrotoxins. Continue to monitor renal function and urine output. Maintain Dow catheter. Preserved EF noted on echo. Replace potassium. Hospice being considered.
[2023-08-31] MEDS: POTASSIUM CHLORIDE 10 MEQ in WATER FOR INJECTION 1 100ML.BAG IVPB ONE (12:02)
[2023-08-31] MEDS: POTASSIUM CHLORIDE 20 MEQ in WATER FOR INJECTION 1 100ML.BAG IVPB STA (12:11)
[2023-08-31 12:34] LABS: Glucose,Whole Blood 118 mg/dL (70-110)
--- NOTE | 2023-08-31 12:44 | P.PN ---
Subjective Progress Note Date: 08/31/23 Progress note Date of service 08/31/[address] Griffin Patient seen and evaluated at bedside Vital sign: Temperature auxiliary 98F, heart rate ranging between 92 and 82 bpm regular Respiratory rate 18/min nonlabored. Blood pressure 162/74 with a mean 103 Oxygen saturations 96% on room air. Laboratories: Sodium 140 potassium 3.[address] Bowers nephrology and he ordered the potassium supplementation. Chloride 110, carbon dioxide 24, anion gap 6 GFR 4 non- 60. Glucose 107, calcium 8.4,, phosphorus 3.2, magnesium 2, TSH 14.900 Free T4 pending. With the significant improvement after he had the new regimen and also received yesterday liothyronine 10 mEq Patient was on 08/29/2023 TSH 37.100. With the underlying myxedema coma with the gradual improvement. Discussed with the pharmacist today Christal, who stated that they able to get another 5 doses for the maintenance dose however it will not be available for the patient to be given IV of liothyronine as supposedly given 5 mcg every 8 hour Which will be started tomorrow because is not available until tomorrow afternoon and may take the 48-hour to see significant improvement. On the examination today Found that the patient was not able to be checked with speech pathology they felt that he has dysphagia still present, per nursing staff as well normal BMs, and he had good urine output and significant renal function improvement. Verbal stimuli and chest rubbing in the sternum indicating that patient awake and he is mumbling but he is awake. The head was normocephalic atraumatic, chronic left facial drooping with history of Bradley's palsy, natural teeth Neck was supple no JVD no thyromegaly no lymphadenopathy. Chest he has normal breathing sound but probably he has some secretion need to be suction if needed Heart regular sinus rhythm no dysrhythmia and blood pressure stable Abdomen soft positive bowel sounds and no tenderness but no BMs patient never ate. Extremities no edema positive pulses with the spontaneous movement. Neurologically appears to be deep sleeping, patient received Xanax at night last night and he had received Dilaudid at 3 AM with the possibility of making him groggy. 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 The renal function has been improved significantly No BMs patient did not eat but he is on TPN Dow catheter in place with good urine output. Severe hypothyroidism and continue current treatment. He has intra-abdominal sepsis and he is treated with antibiotic and followed by Dr. Simmons infectious disease. Protein caloric deficiency with the last 3 albumin was 9.5 on 08/29/2023. Plan and discussion: 1. Will continue the program for supplementing coverage for thyroid and liothyronine when it is available in the pharmacy. 2. I did discuss plan with the speech pathology TAMANNA, with the plan to recheck on a daily basis to see if regain swallowing which can happen also with myxedema coma. 3. Continue to support. Will be recheck TSH and free T4 on Tuesday. 4. If the patient started to wake up and able to eat we will be planning for tomorrow [place] and adjust his intake and diabetes 5. We will discuss with the family tomorrow hopefully we have the doses for the maintenance dose of liothyronine available tomorrow Objective - Vital Signs Vital signs: Vital Signs Temp 98 F 08/31/23 08:55 Pulse 82 08/31/23 11:28 Resp 18 08/31/23 08:55 BP 162/74 08/31/23 08:55 Pulse Ox 96 08/31/23 08:55 FiO2 Intake & Output 08/30/23 08/31/23 08/31/23 18:59 06:59 18:59 Intake Total 250 1059 Output Total 1150 Balance 250 -91 Intake: Intake, IV Titration 250 1059 Amount Meropenem 1 gm In Sodium 100 Chloride 0.9% 100 ml @ 33 .3 mls/hr IVPB Q12HR [facility] Rx#:[id number] Mvi, Adult No.4 with Vit 1059 K 10 ml Trace (Conc-1Ml/ Dose) 1 ml Sodium Acetate 70 meq Calcium Gluconate 1 gm Magnesium Sulfate gm 1.5 gm In Amino Acids 5 %/Dextrose 20 % 1,000 ml @ 48 mls/hr IV .Q22H4M [facility] Rx#:[id number] Sodium Chloride 0.9% 500 150 ml 500 ml @ 0 mls/hr IV . [facility] Rx#: [id number] Oral 0 Output: Urine 1150 Other: Voiding Method Indwelling Catheter Indwelling Catheter Indwelling Catheter - Labs CBC & Chem 7: 08/29/23 10:27 08/31/23 06:30 Labs: Abnormal Lab Results - Last 24 Hours (Table) 08/31/23 08/31/23 08/31/23 Range/Units 00:23 06:18 06:30 Potassium 3.4 L (3.5-5.1) mmol/L Chloride 110 H (98-107) mmol/L BUN 37 H (9-20) mg/dL Glucose 107 H (74-99) mg/dL POC Glucose (mg/dL) 132 H 119 H (70-110) mg/dL TSH 14.900 H (0.465-4.680) mIU/L
[2023-08-31 12:46] LABS: T4, Free (Free Thyroxine) 1.04 ng/dL (0.78-2.19)
--- NOTE | 2023-08-31 12:52 | P.PN ---
Subjective Progress Note Date: 08/31/23 Principal diagnosis: Reason for follow-up is fever likely abdominal source Patient is a 83-year-old male with a past medical history significant for coronary disease COPD dementia hypertension hyperlipidemia reflux presenting to the hospital for evaluation of abdominal pain bloating has been diagnosed with the distal small bowel obstruction developing a fever concerning for possible abdominal sepsis prompting this consultation.Patient is status post robotic assisted laparoscopic lysis of adhesion extensive and decompressive enterostomy that was completed on 08/08/2023 On today's evaluation that is 08/31/2023,the patient remains to be afebrile patient is breathing comfortably currently on room air not requiring oxygen, the patient remains to be sleepy lethargic and cannot provide any history nursing staff mention patient out to her this morning, no bowel movement has been reported, oral intake remains to be minimal to none No CBC was done today his creatinine is 1.12 Objective - Vital Signs Vital signs: Vital Signs Temp 98 F 08/31/23 08:55 Pulse 82 08/31/23 11:28 Resp 18 08/31/23 08:55 BP 162/74 08/31/23 08:55 Pulse Ox 96 08/31/23 08:55 FiO2 Intake & Output 08/30/23 08/31/23 08/31/23 18:59 06:59 18:59 Intake Total 250 1059 Output Total 1150 Balance 250 -91 Intake: Intake, IV Titration 250 1059 Amount Meropenem 1 gm In Sodium 100 Chloride 0.9% 100 ml @ 33 .3 mls/hr IVPB Q12HR [facility] Rx#:[id number] Mvi, Adult No.4 with Vit 1059 K 10 ml Trace (Conc-1Ml/ Dose) 1 ml Sodium Acetate 70 meq Calcium Gluconate 1 gm Magnesium Sulfate gm 1.5 gm In Amino Acids 5 %/Dextrose 20 % 1,000 ml @ 48 mls/hr IV .Q22H4M [facility] Rx#:[id number] Sodium Chloride 0.9% 500 150 ml 500 ml @ 0 mls/hr IV . [facility] Rx#: [id number] Oral 0 Output: Urine 1150 Other: Voiding Method Indwelling Catheter Indwelling Catheter Indwelling Catheter - Exam GENERAL DESCRIPTION: An elderly male up in the chair in no distress RESPIRATORY SYSTEM: Unlabored breathing , decreased breath sounds at bases HEART: S1 S2 regular rate and rhythm , ABDOMEN: Soft , no tenderness EXTREMITIES: No edema feet - Labs CBC & Chem 7: 08/29/23 10:27 08/31/23 06:30 Labs: Abnormal Lab Results - Last 24 Hours (Table) 08/31/23 08/31/23 08/31/23 Range/Units 00:23 06:18 06:30 Potassium 3.4 L (3.5-5.1) mmol/L Chloride 110 H (98-107) mmol/L BUN 37 H (9-20) mg/dL Glucose 107 H (74-99) mg/dL POC Glucose (mg/dL) 132 H 119 H (70-110) mg/dL TSH 14.900 H (0.465-4.680) mIU/L Assessment and Plan (1) Fever Current Visit: Yes Status: Acute Code(s): R50.9 - FEVER, UNSPECIFIED SNOMED Code(s): 286208297 (2) Leukocytosis Current Visit: Yes Status: Acute Code(s): D72.829 - ELEVATED WHITE BLOOD CELL COUNT, UNSPECIFIED SNOMED Code(s): 168358355 (3) Small bowel obstruction Current Visit: Yes Status: Acute Code(s): K56.609 - UNSP INTESTNL OBST, UNSP TO PARTIAL VERSUS COMPLETE OBST SNOMED Code(s): 217274657 (4) Peritonitis Current Visit: Yes Status: Acute Code(s): K65.9 - PERITONITIS, UNSPECIFIED SNOMED Code(s): 30336483 Plan: 1patient with low-grade fever elevated white count and this patient presented to hospital with abdominal pain and bloating and has been diagnosed with the small bowel obstruction likely etiology for his low-grade fever and elevated white count, the patient is status post laparoscopic lysis of adhesion and enterostomy abdominal cultures obtained which are currently growing Enterococcus drug-resistant Enterobacter and Marybeth 2-patient is afebrile, patient white count has been normal 3-patient will be completing his 3-week course of meropenem and Eraxis as of tomorrow, prognosis remains to be guarded Dictation was produced using [employer] software. please excuse any grammatical, word or spelling errors. Time with Patient: Less than 30
[2023-08-31 18:50] LABS: Glucose,Whole Blood 123 mg/dL (70-110)
[2023-09-01 00:25] LABS: Glucose,Whole Blood 96 mg/dL (70-110)
[2023-09-01 05:46] LABS: Glucose,Whole Blood 78 mg/dL (70-110)
[2023-09-01] MEDS: DEXTROSE 50% SYRINGE 50 ML IVP ONE (06:43)
[2023-09-01 07:05] LABS: Glucose,Whole Blood 107 mg/dL (70-110)
[2023-09-01] MEDS: LIDOCAINE 1% INJ 10MG/ML (20 ML MDV) SQ ONE (10:09)
[2023-09-01 10:59] LABS: Potassium 3.7 mmol/L (3.5-5.1)
[2023-09-01 11:00] LABS: African American GFR (CKD) 74 (>60 ml/min/1.73 sqM); Anion Gap 10 mmol/L; Blood Urea Nitrogen 39 mg/dL (9-20); Calcium 8.7 mg/dL (8.4-10.2); Carbon Dioxide 22 mmol/L (22-30); Chloride 111 mmol/L (98-107); Glucose 72 mg/dL (74-99); Non-African American GFR(CKD) 64 (>60 ml/min/1.73 sqM); Phosphorus 2.7 mg/dL (2.5-4.5); Sodium 143 mmol/L (137-145)
--- NOTE | 2023-09-01 11:22 | P.OP ---
Date of Procedure: 09/01/23 Description of Procedure: Date of Procedure: Preoperative Diagnosis: Need for IV nutrition Postoperative Diagnosis: Same. Procedure(s) Performed: Ultrasound-guided cannulation left basilic vein. Insertion of peripherally inserted central catheter under fluoroscopic guidance. Anesthesia: local (1% Xylocaine.) Surgeon: Paloma Estimated Blood Loss (ml): 5 IV fluids (ml): 0 Urine output (ml): 0 Pathology: none sent Condition: stable Disposition: no change Indications for Procedure:, Previous PICC line is no longer functional reportedly. Patient is an 83-year-old male who will require IV nutrition Description of Procedure: Patient was brought to the special procedure suite. The left upper extremity sterilely prepped and draped in usual manner. Ultrasound was utilized to identify the basilic vein which was normally compressible free of visible thrombus. Permenant image was stored. 1% Xylocaine was utilized for local anesthesia tissues overlying the vein. Through this anesthetized area and with the aid of ultrasound a micropuncture needle was utilized to cannulate the vein. Once cannulated, Softip guidewire was advanced into the vein. The needle was withdrawn and a micropuncture sheath and dilator advanced over the guidewire. The guidewire was withdrawn and exchanged for the PICC guidewire and measured to the cavoatrial junction. The catheter was cut to size and advanced into the cavoatrial junction without resistance. The sheath was peeled away. Blood was easily withdrawn through the catheter and the catheter was then flushed with heparinized saline solution and secured to the skin. Patient tolerated procedure well and was returned to their room in satisfactory and stable condition.
[2023-09-01 11:51] LABS: Glucose,Whole Blood 75 mg/dL (70-110)
[2023-09-01] MEDS: [UNRECOGNIZED DRUG - REMARK] IV SCH (12:13)
--- NOTE | 2023-09-01 13:38 | P.PN ---
Subjective Progress Note Date: 09/01/23 Progress normal manner note Date of service 09/01/[address] Griffin. Patient seen today evaluated at bedside [id number] Lynne RN's nurse at bedside and a sitter at bedside Patient awake alert open his eyes started talking and mumbling. And with the underlying dementia probably progressed. 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 Patient will receive liothyronine this afternoon when it is available to the pharmacy and he will be started on 5 mcg of liothyronine every 8 hour with the available dose and may take 2 to 3 days to normalize as well as with checking his TSH and free T4 tomorrow. Will also check his liver function panel with the checking on his protein and albumin, His underlying prolonged starvation with underlying protein calorie deficiency patient on TPN. Patient started to eat and swallow subsequently will discontinue the TPN. And Intralipid. Patient will be planned for [facility] and rehab for continuing care if there is progression of his ability to eat Patient on antibiotic at this time all weight for infectious disease for finishing the echo goal of treatment Patient with diarrhea and soft bowel and no tenderness. And we will be waiting for Dr. Simmons if there is diarrhea related to antibiotic or not. Patient able to communicate was mumbling open his eyes and try to communicate. Laboratory: Sodium 143, potassium 3.7, chloride 111, carbon dioxide 22, BUN of 39, anion gap of 10, EGFR 64 4 none . Blood sugar 75 glucose, calcium 8.7, phosphorus 2.7, magnesium is 2. Patient underwent left PICC line by Dr. Mary Dow the vascular surgeon. On the left arm. For the IV and TPN On exam: Patient awake alert but confused Oropharynx natural teeth Neck was supple no JVD no lymphadenopathy. Chest: He has history of COPD but normal breath sounds bilaterally Heart regular sinus rhythm no dysrhythmia Abdomen soft positive bowel sounds and mention by the staff he had diarrhea. Extremities no edema and positive pulses he had a thrombotic stocking. And a Dow catheter in. Neurologically confusion with the underlying history of dementia and myxedema coma Assessment: And plan 1. 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 Gradually recovering with the current treatment and expecting liothyronine to be obtained today and to be started with it is available by the pharmacy. 3. Still on TPN and Intralipid due to his protein calorie deficiency and the prolonged starvation secondary to the small bowel obstruction followed by ileus. 4. Patient pulled out his line and Dr. Jessica Dow did not put another PICC line to continue infusion for the antibiotic, TPN Intralipid and injection of the thyroid supplementation. 5. Metabolic encephalopathy secondary to the above 6 history of acute kidney injury on the top of chronic kidney disease stage III 7. Temporary hemodialysis currently discontinued with recovery of his renal function. 8. History of acute hypoxemic respiratory failure and has been recovered with history of COPD and asthma. 9. History of 6 sinus tachycardia with preserved ejection fraction. 10. Presented with acute small bowel obstruction on the 08/01/2023 with the consultation with Dr. Pinzon in the ER 11. Dr. Pinzon operated on the patient on 08/08/2023 with the robotic laparoscopic lysis of adhesion 12. Continue to be having ileus for prolonged time. #13 dysphagia with the review with the neurology and indicating metabolic encephalopathy. 14. Will continue current treatment and support and starting his treatment and check his mentation and the TSH and free T4 Objective - Vital Signs Vital signs: Vital Signs Temp 97.9 F 09/01/23 07:13 Pulse 89 09/01/23 12:14 Resp 16 09/01/23 08:00 BP 118/76 09/01/23 07:13 Pulse Ox 95 09/01/23 08:04 FiO2 Intake & Output 08/31/23 09/01/23 09/01/23 18:59 06:59 18:59 Intake Total 882.4 Output Total 1300 200 400 Balance -1300 682.4 -400 Intake: Intake, IV Titration 882.4 Amount Mvi, Adult No.4 with Vit 882.4 K 10 ml Trace (Conc-1Ml/ Dose) 1 ml Sodium Acetate 70 meq Calcium Gluconate 1 gm Magnesium Sulfate gm 1.5 gm In Amino Acids 5 %/Dextrose 20 % 1,000 ml @ 48 mls/hr IV .Q22H4M [facility] Rx#:[id number] Output: Urine 1300 200 400 Other: Voiding Method Indwelling Catheter Indwelling Catheter Indwelling Catheter # Bowel Movements 1 - Labs CBC & Chem 7: 08/29/23 10:27 09/01/23 09:37 Labs: Abnormal Lab Results - Last 24 Hours (Table) 08/31/23 09/01/23 Range/Units 18:48 09:37 Chloride 111 H (98-107) mmol/L BUN 39 H (9-20) mg/dL Glucose 72 L (74-99) mg/dL POC Glucose (mg/dL) 123 H (70-110) mg/dL
[2023-09-01] MEDS: POTASSIUM CHLORIDE 20 MEQ in WATER FOR INJECTION 1 100ML.BAG IVPB ONE (14:41)
[2023-09-01] MEDS: LIOTHYRONINE 5 MCG IV SCH (14:42)
[2023-09-01] MEDS: ALPRAZolam 0.5 MG TAB PO PRN (14:46)
[2023-09-01 16:43] LABS: Glucose,Whole Blood 108 mg/dL (70-110)
--- NOTE | 2023-09-01 16:50 | P.PN ---
Subjective Progress Note Date: 09/01/23 Principal diagnosis: Reason for follow-up is fever likely abdominal source Patient is a 83-year-old male with a past medical history significant for coronary disease COPD dementia hypertension hyperlipidemia reflux presenting to the hospital for evaluation of abdominal pain bloating has been diagnosed with the distal small bowel obstruction developing a fever concerning for possible abdominal sepsis prompting this consultation.Patient is status post robotic assisted laparoscopic lysis of adhesion extensive and decompressive enterostomy that was completed on 08/08/2023 On today's evaluation that is 09/01/2023,the patient remains to be afebrile, patient is on room air not requiring supplemental oxygen, patient is more awake and alert today and did not answer some simple questions mention breathing comfortably oral intake remains to be low per the nursing staff no vomiting diarrhea or any other changes reported. Patient did have a creatinine 1.06 Objective - Vital Signs Vital signs: Vital Signs Temp 97.7 F 09/01/23 12:00 Pulse 95 09/01/23 15:59 Resp 16 09/01/23 14:00 BP 167/85 09/01/23 12:00 Pulse Ox 94 L 09/01/23 12:00 FiO2 Intake & Output 08/31/23 09/01/23 09/01/23 18:59 06:59 18:59 Intake Total 882.4 Output Total 1300 200 800 Balance -1300 682.4 -800 Weight 73 kg Intake: Intake, IV Titration 882.4 Amount Mvi, Adult No.4 with Vit 882.4 K 10 ml Trace (Conc-1Ml/ Dose) 1 ml Sodium Acetate 70 meq Calcium Gluconate 1 gm Magnesium Sulfate gm 1.5 gm In Amino Acids 5 %/Dextrose 20 % 1,000 ml @ 48 mls/hr IV .Q22H4M [facility] Rx#:[id number] Output: Urine 1300 200 800 Other: Voiding Method Indwelling Catheter Indwelling Catheter Indwelling Catheter # Bowel Movements 1 - Exam GENERAL DESCRIPTION: An elderly male up in the chair in no distress RESPIRATORY SYSTEM: Unlabored breathing , decreased breath sounds at bases HEART: S1 S2 regular rate and rhythm , ABDOMEN: Soft , no tenderness EXTREMITIES: No edema feet - Labs CBC & Chem 7: 08/29/23 10:27 09/01/23 09:37 Labs: Abnormal Lab Results - Last 24 Hours (Table) 08/31/23 09/01/23 Range/Units 18:48 09:37 Chloride 111 H (98-107) mmol/L BUN 39 H (9-20) mg/dL Glucose 72 L (74-99) mg/dL POC Glucose (mg/dL) 123 H (70-110) mg/dL Assessment and Plan (1) Fever Current Visit: Yes Status: Acute Code(s): R50.9 - FEVER, UNSPECIFIED SNOMED Code(s): 577696888 (2) Leukocytosis Current Visit: Yes Status: Acute Code(s): D72.829 - ELEVATED WHITE BLOOD CELL COUNT, UNSPECIFIED SNOMED Code(s): 071551522 (3) Small bowel obstruction Current Visit: Yes Status: Acute Code(s): K56.609 - UNSP INTESTNL OBST, UNSP TO PARTIAL VERSUS COMPLETE OBST SNOMED Code(s): 420025076 (4) Peritonitis Current Visit: Yes Status: Acute Code(s): K65.9 - PERITONITIS, UNSPECIFIED SNOMED Code(s): 58918335 Plan: 1patient with low-grade fever elevated white count and this patient presented to hospital with abdominal pain and bloating and has been diagnosed with the small bowel obstruction likely etiology for his low-grade fever and elevated white count, the patient is status post laparoscopic lysis of adhesion and enterostomy abdominal cultures obtained which are currently growing Enterococcus drug-resistant Enterobacter and Marybeth 2-patient is afebrile, patient white count has been normal 3-patient currently on meropenem and Eraxis completing a 3-week course as of today and will be discontinued after today's dose Dictation was produced using [employer] software. please excuse any grammatical, word or spelling errors. Time with Patient: Less than 30
[2023-09-01 23:44] LABS: Glucose,Whole Blood 102 mg/dL (70-110)
[2023-09-02 06:05] LABS: Glucose,Whole Blood 100 mg/dL (70-110)
[2023-09-02 10:29] LABS: ALT 75 U/L (4-49); AST 84 U/L (17-59); Albumin 2.4 g/dL (3.5-5.0); Alkaline Phosphatase 219 U/L (38-126); Bilirubin, Delta 0.2 mg/dL (0.0-0.2); Total Bilirubin 0.2 mg/dL (0.2-1.3); Total Protein 5.5 g/dL (6.3-8.2)
--- NOTE | 2023-09-02 10:33 | P.PN ---
Subjective Patient is seen in follow-up for acute kidney injury on chronic kidney disease. Status post hemodialysis this admission. Now renal function has been stable without hemodialysis and dialysis catheter has been removed. Receiving TPN and IV fluids. On room air. Has been confused. Sitter present at bedside. Vital signs are stable. General: No acute distress. Resting in bed. HEENT: Head exam is unremarkable. LUNGS: No audible rhonchi or wheezes. HEART: Rate and Rhythm are regular. ABDOMEN: Nontender. EXTREMITITES: No edema. Objective - Vital Signs Vital signs: Vital Signs Temp 97.9 F 09/02/23 08:40 Pulse 85 09/02/23 09:21 Resp 22 09/02/23 08:40 BP 168/79 09/02/23 08:40 Pulse Ox 95 09/02/23 09:19 FiO2 21 09/02/23 09:19 Intake & Output 09/01/23 09/02/23 09/02/23 18:59 06:59 18:59 Intake Total 688 20 Output Total 1050 325 Balance -1050 363 20 Weight 73 kg Intake: IV 20 Invasive Line 1 10 Invasive Line 2 10 Intake, IV Titration 688 Amount Meropenem 1 gm In Sodium 100 Chloride 0.9% 100 ml @ 33 .3 mls/hr IVPB Q12HR [facility] Rx#:[id number] Mvi, Adult No.4 with Vit 288 K 10 ml Trace (Conc-1Ml/ Dose) 1 ml Sodium Acetate 60 meq Calcium Gluconate 1 gm Magnesium Sulfate gm 1.5 gm Potassium Phosphate 6 mmol In Amino Acids 5 %/Dextrose 20 % 1,000 ml @ 48 mls/hr IV . Q22H [facility] Rx#:[id number] Sodium Chloride 0.9% 1, 300 000 ml @ 50 mls/hr IV . Q20H [facility] Rx#:[id number] Output: Urine 1050 325 Other: Voiding Method Indwelling Catheter Indwelling Catheter # Bowel Movements 1 1 1 - Labs CBC & Chem 7: 08/29/23 10:27 09/01/23 09:37 Labs: Abnormal Lab Results - Last 24 Hours (Table) 09/01/23 09/02/23 Range/Units 09:37 09:10 Chloride 111 H (98-107) mmol/L BUN 39 H (9-20) mg/dL Glucose 72 L (74-99) mg/dL AST 84 H (17-59) U/L ALT 75 H (4-49) U/L Alkaline Phosphatase 219 H (38-126) U/L Total Protein 5.5 L (6.3-8.2) g/dL Albumin 2.4 L (3.5-5.0) g/dL Assessment and Plan Plan: Assessment: 1. Acute kidney injury secondary to hemodynamic ATN. No hydronephrosis noted on CAT scan. Started on hemodialysis August 10, 2023. Last dialysis August 12, 2023. Permacath removed August 19, 2023. Renal function improved. Creatinine 1.06. Nonoliguric. 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 Heme/onc following. 2. Chronic kidney disease stage IIIb with baseline creatinine 1.3-1.5 secondary to nephrosclerosis. 3. Partial small bowel obstruction. Receiving TPN. Surgery following. 4. Metabolic acidosis secondary to acute kidney injury and IV fluids. Better. 5. Atrial tachycardia status post Cardizem drip. On metoprolol. Cardiology following. 6. Anemia. Iron deficiency noted - s/p IV iron. On Aranesp. 7. Hyperkalemia secondary to acute kidney injury. Improved. Now hypokalemic. 8. Hypothyroidism maintained on IV liothyronine. Plan: Maintain TPN per surgery. Maintain normal saline. Avoid nephrotoxins. Continue to monitor renal function and urine output. Maintain Dow catheter. Preserved EF noted on echo. Replace electrolytes as needed.
[2023-09-02 10:39] LABS: African American GFR (CKD) 62 (>60 ml/min/1.73 sqM); Anion Gap 3 mmol/L; Blood Urea Nitrogen 36 mg/dL (9-20); Calcium 8.4 mg/dL (8.4-10.2); Carbon Dioxide 26 mmol/L (22-30); Chloride 112 mmol/L (98-107); Glucose 92 mg/dL (74-99); Magnesium 1.9 mg/dL (1.6-2.3); Non-African American GFR(CKD) 54 (>60 ml/min/1.73 sqM); Phosphorus 2.9 mg/dL (2.5-4.5); Potassium 3.2 mmol/L (3.5-5.1); Sodium 141 mmol/L (137-145)
[2023-09-02] MEDS: [UNRECOGNIZED DRUG - REMARK] IV SCH (11:00)
[2023-09-02 11:29] LABS: T4, Free (Free Thyroxine) 1.19 ng/dL (0.78-2.19)
[2023-09-02 11:29] LABS: Glucose,Whole Blood 94 mg/dL (70-110)
[2023-09-02] MEDS: POTASSIUM CHLORIDE 20 MEQ in WATER FOR INJECTION 1 100ML.BAG IVPB STA (13:02)
--- NOTE | 2023-09-02 13:07 | P.PN ---
Subjective Progress Note Date: 09/02/23 Progress note Date of service 09/02/[address] Griffin. Patient seen today at bedside discussed with his nurse. Patient is awake alert confused with mumbling with underlying dementia. Able to eat and swallow with the treatment for myxedema coma has been so far successful We hope that we have over the weekend continue the doses of liothyronine. Vital sign temperature 97.9 F oral pulse rate 85/min regular sinus, blood pressure 168/79 with a mean 108. Oxygen saturation 95%. Start feeding on sitting position. Laboratory: Sodium 141, potassium 3.2 and we request pharmacy for support with the potassium through the TPN. Chloride 112: Dioxide 26 and anion gap 3 BUN 36 creatinine 1.23 EGFR 54., Glucose 94. Ionized calcium is 5 with the total calcium 8.4. Phosphorus 2.9 magnesium 1.9, total bili 0.2 and AST mildly elevated 84 and ALT 75 alkaline phosphatase 219 with the total protein 5.5 and albumin 2.4, and TSH 10 Free T41.19. Currently patient getting the IV levothyroxine as well as liothyronine 5 mcg every 8 hour and going for 5 doses however we will ask pharmacy if she has more doses will be helpful to cover the weekend. With the plan it with the patient continue to wake up and able to eat we will transfer [facility] rehab on next week. To continue oral f eeding. At that time he will be discontinuing the TPN and IV fluid. On exam: Patient is conscious alert he is mumbling and occasional sentence. Normal The underlying metabolic encephalopathy. Head normocephalic atraumatic he had natural teeth Neck was supple no JVD no thyromegaly no lymphadenopathy. Chest was clear to auscultation percussion no wheezes no rhonchi's Heart was regular sinus rhythm with the preserved ejection fraction Abdomen is soft positive bowel sounds no tenderness and he had a bowel movement. Extremities no edema thrombotic stocking. Neurologically he had a metabolic encephalopathy and underlying myxedema coma which is recovering slowly. Assessment: 1. Myxedema coma has been treated and we hope that patient had more of the liothyronine to cover him for the weekend and continue with the IV levothyroxine. 2. Dementia progressive. 3. Metabolic encephalopathy 4. Abnormal liver enzyme could be related to the TPN. 5. Blood glucose 94. 6. Multiple medical problem through prolonged hospitalization. 7. Patient admitted with small bowel obstruction secondary to adhesion 8. Status post robotic laparoscopic adhesion lysis on the August 07 followed by severe ileus prolonged. 9. Dysphagia secondary to underlying metabolic encephalopathy as well as subsequently found that he had myxedema coma. Which is responding at this time. 10. Anemia 11. Acute kidney injury on the top of chronic kidney disease underwent temporary dialysis and followed by nephrology and electrolyte imbalance. 12. Recovered renal function to his baseline 13. Patient developed sinus tachycardia and acute renal failure with the underlying at that time small bowel obstruction. 14. Protein calorie deficiency with the prolonged starvation. Plan 1. Will continue treatment for the myxedema coma over the weekend with the hopefully more improvement 2. We hope that pharmacy able to get some more of liothyronine to cover for the week and 3. If continue to wake up and eat will be planning for transfer to [facility] re[facility] next week. When available bed is available Objective - Vital Signs Vital signs: Vital Signs Temp 97.9 F 09/02/23 08:40 Pulse 85 09/02/23 09:21 Resp 22 09/02/23 08:40 BP 168/79 09/02/23 08:40 Pulse Ox 95 09/02/23 09:19 FiO2 21 09/02/23 09:19 Intake & Output 09/01/23 09/02/23 09/02/23 18:59 06:59 18:59 Intake Total 688 20 Output Total 1050 325 Balance -1050 363 20 Weight 73 kg Intake: IV 20 Invasive Line 1 10 Invasive Line 2 10 Intake, IV Titration 688 Amount Meropenem 1 gm In Sodium 100 Chloride 0.9% 100 ml @ 33 .3 mls/hr IVPB Q12HR [facility] Rx#:[id number] Mvi, Adult No.4 with Vit 288 K 10 ml Trace (Conc-1Ml/ Dose) 1 ml Sodium Acetate 60 meq Calcium Gluconate 1 gm Magnesium Sulfate gm 1.5 gm Potassium Phosphate 6 mmol In Amino Acids 5 %/Dextrose 20 % 1,000 ml @ 48 mls/hr IV . Q22H [facility] Rx#:[id number] Sodium Chloride 0.9% 1, 300 000 ml @ 50 mls/hr IV . Q20H [facility] Rx#:[id number] Output: Urine 1050 325 Other: Voiding Method Indwelling Catheter Indwelling Catheter # Bowel Movements 1 1 1 - Labs CBC & Chem 7: 08/29/23 10:27 09/02/23 09:10 Labs: Abnormal Lab Results - Last 24 Hours (Table) 09/02/23 09/02/23 Range/Units 09:10 09:10 Potassium 3.2 L (3.5-5.1) mmol/L Chloride 112 H (98-107) mmol/L BUN 36 H (9-20) mg/dL AST 84 H (17-59) U/L ALT 75 H (4-49) U/L Alkaline Phosphatase 219 H (38-126) U/L Total Protein 5.5 L (6.3-8.2) g/dL Albumin 2.4 L (3.5-5.0) g/dL TSH 10.000 H (0.465-4.680) mIU/L
[2023-09-02 17:49] LABS: Glucose,Whole Blood 107 mg/dL (70-110)
--- NOTE | 2023-09-02 19:30 | IR ---
EXAMINATION TYPE: IR cvc insert >=5 years DATE OF EXAM: 09/01/2023 FLUOROSCOPY Fluoroscopy time of 0.5 minutes was used during left PICC line placement for antibiotics. 327 image/ s document/s the procedure. 0.402 Gycm2.
--- NOTE | 2023-09-02 21:33 | P.PN ---
Subjective Progress Note Date: 09/02/23 Principal diagnosis: Reason for follow-up is fever likely abdominal source Patient is a 83-year-old male with a past medical history significant for coronary disease COPD dementia hypertension hyperlipidemia reflux presenting to the hospital for evaluation of abdominal pain bloating has been diagnosed with the distal small bowel obstruction developing a fever concerning for possible abdominal sepsis prompting this consultation.Patient is status post robotic assisted laparoscopic lysis of adhesion extensive and decompressive enterostomy that was completed on 08/08/2023 On today's evaluation that is 09/02/2023, the patient continues to be afebrile, the patient is on room air and breathing comfortably, the Pt remains to be lethargic did not open eyes to his name, but did not answer any question oriented extremities to poor no vomiting or diarrhea reported by the nursing staff. Patient did have a creatinine 1.23 no CBC was done today Objective - Vital Signs Vital signs: Vital Signs Temp 97.7 F 09/02/23 12:00 Pulse 87 09/02/23 12:00 Resp 18 09/02/23 12:00 BP 183/86 09/02/23 12:00 Pulse Ox 96 09/02/23 12:00 FiO2 21 09/02/23 09:19 Intake & Output 09/01/23 09/02/23 09/02/23 18:59 06:59 18:59 Intake Total 688 20 Output Total 1050 325 Balance -1050 363 20 Weight 73 kg Intake: IV 20 Invasive Line 1 10 Invasive Line 2 10 Intake, IV Titration 688 Amount Meropenem 1 gm In Sodium 100 Chloride 0.9% 100 ml @ 33 .3 mls/hr IVPB Q12HR [facility] Rx#:[id number] Mvi, Adult No.4 with Vit 288 K 10 ml Trace (Conc-1Ml/ Dose) 1 ml Sodium Acetate 60 meq Calcium Gluconate 1 gm Magnesium Sulfate gm 1.5 gm Potassium Phosphate 6 mmol In Amino Acids 5 %/Dextrose 20 % 1,000 ml @ 48 mls/hr IV . Q22H [facility] Rx#:[id number] Sodium Chloride 0.9% 1, 300 000 ml @ 50 mls/hr IV . Q20H [facility] Rx#:[id number] Output: Urine 1050 325 Other: Voiding Method Indwelling Catheter Indwelling Catheter # Bowel Movements 1 1 1 - Exam GENERAL DESCRIPTION: An elderly male up in the chair in no distress RESPIRATORY SYSTEM: Unlabored breathing , decreased breath sounds at bases HEART: S1 S2 regular rate and rhythm , ABDOMEN: Soft , no tenderness EXTREMITIES: No edema feet - Labs CBC & Chem 7: 08/29/23 10:27 09/02/23 09:10 Labs: Abnormal Lab Results - Last 24 Hours (Table) 09/02/23 09/02/23 Range/Units 09:10 09:10 Potassium 3.2 L (3.5-5.1) mmol/L Chloride 112 H (98-107) mmol/L BUN 36 H (9-20) mg/dL AST 84 H (17-59) U/L ALT 75 H (4-49) U/L Alkaline Phosphatase 219 H (38-126) U/L Total Protein 5.5 L (6.3-8.2) g/dL Albumin 2.4 L (3.5-5.0) g/dL TSH 10.000 H (0.465-4.680) mIU/L Assessment and Plan (1) Fever Current Visit: Yes Status: Acute Code(s): R50.9 - FEVER, UNSPECIFIED SNOMED Code(s): 344130370 (2) Leukocytosis Current Visit: Yes Status: Acute Code(s): D72.829 - ELEVATED WHITE BLOOD CELL COUNT, UNSPECIFIED SNOMED Code(s): 295393210 (3) Small bowel obstruction Current Visit: Yes Status: Acute Code(s): K56.609 - UNSP INTESTNL OBST, UNSP TO PARTIAL VERSUS COMPLETE OBST SNOMED Code(s): 194932588 (4) Peritonitis Current Visit: Yes Status: Acute Code(s): K65.9 - PERITONITIS, UNSPECIFIED SNOMED Code(s): 36040509 Plan: 1patient with low-grade fever elevated white count and this patient presented to hospital with abdominal pain and bloating and has been diagnosed with the small bowel obstruction likely etiology for his low-grade fever and elevated white count, the patient is status post laparoscopic lysis of adhesion and enterostomy abdominal cultures obtained which are currently growing Enterococcus drug-resistant Enterobacter and Marybeth 2-patient is afebrile, patient white count has been normal 3-patient has received adequate antibiotic and antifungal therapy for his underlying peritonitis meropenem and Eraxis will be discontinued today and the patient monitor closely Dictation was produced using [employer] dictation software. please excuse any grammatical, word or spelling errors. Time with Patient: Less than 30
[2023-09-03 00:20] LABS: Glucose,Whole Blood 112 mg/dL (70-110)
[2023-09-03 06:13] LABS: Glucose,Whole Blood 90 mg/dL (70-110)
[2023-09-03 08:14] LABS: African American GFR (CKD) 69 (>60 ml/min/1.73 sqM); Anion Gap 4 mmol/L; Blood Urea Nitrogen 36 mg/dL (9-20); Calcium 8.1 mg/dL (8.4-10.2); Carbon Dioxide 26 mmol/L (22-30); Chloride 114 mmol/L (98-107); Glucose 91 mg/dL (74-99); Non-African American GFR(CKD) 59 (>60 ml/min/1.73 sqM); Potassium 3.2 mmol/L (3.5-5.1); Sodium 144 mmol/L (137-145)
[2023-09-03] MEDS: POTASSIUM CHLORIDE 10 MEQ in WATER FOR INJECTION 1 100ML.BAG IVPB SCH (09:10)
[2023-09-03 12:06] LABS: Glucose,Whole Blood 138 mg/dL (70-110)
--- NOTE | 2023-09-03 14:02 | P.PN ---
Subjective Progress Note Date: 09/03/23 Patient is seen in follow-up for acute kidney injury on chronic kidney disease. Status post hemodialysis this admission. Now renal function has been stable without hemodialysis and dialysis catheter has been removed. Receiving TPN and IV fluids. On room air. Has been confused. Vital signs are stable. General: No acute distress. Resting in bed. HEENT: Head exam is unremarkable. LUNGS: No audible rhonchi or wheezes. HEART: Rate and Rhythm are regular. ABDOMEN: Nontender. EXTREMITITES: No edema. Objective - Vital Signs Vital signs: Vital Signs Temp 98.1 F 09/03/23 07:38 Pulse 80 09/03/23 09:33 Resp 16 09/03/23 07:38 BP 171/75 09/03/23 07:38 Pulse Ox 96 09/03/23 07:38 FiO2 21 09/02/23 09:19 Intake & Output 09/02/23 09/03/23 09/03/23 18:59 06:59 18:59 Intake Total 812 41 7626 Output Total 750 480 Balance -480 -450 1056 Weight 74 kg Intake: IV 30 30 Invasive Line 1 10 20 Invasive Line 2 20 10 Intake, IV Titration 1056 Amount Mvi, Adult No.4 with Vit 1056 K 10 ml Trace (Conc-1Ml/ Dose) 1 ml Sodium Acetate 60 meq Calcium Gluconate 1 gm Magnesium Sulfate gm 1.5 gm Potassium Phosphate 6 mmol In Amino Acids 5 %/Dextrose 20 % 1,000 ml @ 48 mls/hr IV . Q22H [facility] Rx#:[id number] Oral 240 Output: Urine 750 480 Uretheral (Dow) 750 Other: Voiding Method Indwelling Catheter Indwelling Catheter Indwelling Catheter # Bowel Movements 1 1 - Labs CBC & Chem 7: 08/29/23 10:27 09/03/23 06:29 Labs: Abnormal Lab Results - Last 24 Hours (Table) 09/03/23 09/03/23 Range/Units 00:18 06:29 Potassium 3.2 L (3.5-5.1) mmol/L Chloride 114 H (98-107) mmol/L BUN 36 H (9-20) mg/dL POC Glucose (mg/dL) 112 H (70-110) mg/dL Calcium 8.1 L (8.4-10.2) mg/dL Assessment and Plan Plan: Assessment: 1. Acute kidney injury secondary to hemodynamic ATN. No hydronephrosis noted on CAT scan. Started on hemodialysis August 10, 2023. Last dialysis August 12, 2023. Permacath removed August 19, 2023. Renal function improved. Creatinine 1.1. Nonoliguric. 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 Heme/onc following. 2. Chronic kidney disease stage IIIb with baseline creatinine 1.3-1.5 secondary to nephrosclerosis. 3. Partial small bowel obstruction. Receiving TPN. Surgery following. 4. Metabolic acidosis secondary to acute kidney injury and IV fluids. Better. 5. Atrial tachycardia status post Cardizem drip. On metoprolol. Cardiology following. 6. Anemia. Iron deficiency noted - s/p IV iron. On Aranesp. 7. Hyperkalemia secondary to acute kidney injury. Improved. Now hypokalemic. 8. Hypothyroidism maintained on IV liothyronine. Plan: Maintain TPN per surgery. Maintain normal saline. Avoid nephrotoxins. Continue to monitor renal function and urine output. Maintain Dow catheter. Preserved EF noted on echo. Replace electrolytes as needed.
[2023-09-03 14:23] VITALS: BMI 25.5
--- NOTE | 2023-09-03 14:38 | P.PN ---
Subjective Progress Note Date: 09/03/23 I am following-up with patient and has sitter at bedside. Per nurse he continue to be confused. Objective - Vital Signs Vital signs: Vital Signs Temp 98.1 F 09/03/23 07:38 Pulse 84 09/03/23 12:30 Resp 16 09/03/23 11:48 BP 164/76 09/03/23 11:48 Pulse Ox 94 L 09/03/23 11:48 FiO2 21 09/02/23 09:19 Intake & Output 09/02/23 09/03/23 09/03/23 18:59 06:59 18:59 Intake Total 126 23 0505 Output Total 750 480 550 Balance -480 -450 506 Weight 74 kg 74 kg Intake: IV 30 30 Invasive Line 1 10 20 Invasive Line 2 20 10 Intake, IV Titration 1056 Amount Mvi, Adult No.4 with Vit 1056 K 10 ml Trace (Conc-1Ml/ Dose) 1 ml Sodium Acetate 60 meq Calcium Gluconate 1 gm Magnesium Sulfate gm 1.5 gm Potassium Phosphate 6 mmol In Amino Acids 5 %/Dextrose 20 % 1,000 ml @ 48 mls/hr IV . Q22H [facility] Rx#:[id number] Oral 240 Output: Urine 750 480 550 Uretheral (Dow) 750 Other: Voiding Method Indwelling Catheter Indwelling Catheter Indwelling Catheter # Bowel Movements 1 1 - Exam General: Lying in bed and is not in acute distress. Neuro: Limited. Is moderately drowsy but is awakeable to voice. Is oriented to self. He states this facility is his home. He is able to tell correctly his date of but not current time. Is very confused. He is slow following commands. Minimal left nasolabial flattening. Motor: Strength is limited in assessment. Is able to lift left upper above gravity and has mitten on right since was pulling on lines (per sitter). - Labs CBC & Chem 7: 08/29/23 10:27 09/03/23 06:29 Labs: Abnormal Lab Results - Last 24 Hours (Table) 09/03/23 09/03/23 09/03/23 Range/Units 00:18 06:29 12:02 Potassium 3.2 L (3.5-5.1) mmol/L Chloride 114 H (98-107) mmol/L BUN 36 H (9-20) mg/dL POC Glucose (mg/dL) 112 H 138 H (70-110) mg/dL Calcium 8.1 L (8.4-10.2) mg/dL Assessment and Plan Assessment: Altered mental status, likely due to metabolic encephalopathy, abnormal thyroid and septic encephalopathy (+ve Enterocccus faecalis and Enterobacter aerogenes on wound culture). Patient has prolonged hospitalization, likely resulting in encephalopathy, on top of his baseline moderate dementia. Reasons of encephalopathy multifactorial as mentioned below. * Dementia, at least moderate degree. This probably has got worse with recent hospitalization. * Small bowel obstruction, status post robotic assisted da Artie laparoscopic with lysis of adhesions and decompressive antrostomy. * Recent acute renal failure, requiring dialysis. Renal functions improved. * Hypothyroidism * Moderate renal insufficiency * Anemia * Worsening perihilar and bibasilar opacities per chest x-ray. * History of Bradley's palsy Plan: * Patient's dementia probably has got worse with recent prolonged hospitalization, and multiple significant medical/surgical conditions. * His mentation probably will improve, once these conditions comes under contro l. However typically patients with dementia gets a permanent setback from these kind of hospitalizations, and do not return to baseline level of functioning even after complete resolution of medical/surgical conditions. * Dr. Zamarripa recommends resuming Aricept 10 mg, and Namenda 10 mg twice daily when medically cleared. * Patient has developed hypothyroidism, and the dose of thyroxine has been adjusted. * Routine EEG: Is abnormal. The background slowing is suggestive of moderate to severe encephalopathy. There is no focal slowing, epileptiform discharge or seizure on the EEG. * Patient currently on Eraxis and meropenem. ID on board. * Hospice is consulted but per nurse it seems family is not interested in hospice since feels he is slightly better. Will follow-up sporadically. Dr. Zamarripa will resume neurology service on 09/05/23 A.M. Time with Patient: Less than 30
--- NOTE | 2023-09-03 16:14 | P.PN ---
Subjective Progress Note Date: 09/03/23 Progress note Date of service 09/03/[address] Griffin. Patient seen and evaluated [id number] Discussed with his daughter Kunal and her and urgency of time with the progress and plan. Laboratory today: Sodium 144, potassium 3.2 supplemented, chloride 114, carbon dioxide 26 BUN 36, creatinine 1.13 and GFR for non- 59, glucose 91. Patient on TPN and Intralipid and monitored for POC glucose. Reviewed the note from the neurologist Dr. Bautista,. And telephone messenger nephrology team. Patient seen by Dr. Simmons infectious disease and continued and maintained on antibiotic. Vital sign: Exhilarated temperature 98.1 F patient heart rate 83 regular sinus, respiratory rate 16 nonlabored, blood pressure 157/77 with a mean 103 and oxygen saturation 95% on room air. Discussion with his nurse and no IV medication for liothyronine available however we find out that overall for his available. Patient is conscious alert oriented and he is mumbling with the metabolic encephalopathy but he able to eat occasional cough but no aspiration Will start liothyronine 5 mcg every 8 hours orally as it is available. On exam: Patient is awake alert and mumbling with the underlying dementia was progressed with the mumbling and saying stories associated with his dementia started to recognize his daughter Kunal and her . Head: Normocephalic atraumatic, natural teeth, pupil equal reactive, Neck was supple no JVD no thyromegaly no lymphadenopathy trachea midline Chest he has underlying COPD with asthma however no wheezes or rhonchi's normal breath sounds. Heart regular sinus rhythm no dysrhythmia. Compensated Abdomen soft positive bowel sounds no organ enlargement and status post robotic laparoscopic surgery by Dr. Pinzon on August 07 followed by severe ileus prolonged. Extremities no edema positive pulses bilateral and patient has a thrombotic stocking Neurologically: Dementia however patient will From myxedema coma. Assessment: 1. Will continue the current plan with the IV levothyroxine, TPN and Intralipid 2. His renal function stable 3. Patient had bowel movement intermittently last 1 yesterday no tenderness in the abdomen no pain 4. Anemia 5. Prolonged starvation with the protein calorie deficiency 6. Status post small bowel obstruction and status post robotic laparoscopic surgery for lysis of adhesion 7. Prolonged ileus currently resolved 8. Severe hypothyroidism complicated with myxedema coma recovering at this time and wake up with the treatment and supplementation. 9. On admission sinus tachycardia stable at this time 10. Acute hypoxic respiratory failure resolved with the underlying asthma COPD 11 hypertension with hypertensive heart disease and history of coronary artery disease in the past stable. 12. Dementia progressive. Plan: 1. Discussed with his daughter and they are agreeable with the next week Tuesday plan for fci placement after changing his medication to oral and discontinuation of the TPN and Intralipid 2. Remove the IV line 3. Continue with the Dow catheter with the underlying urine retention and neurogenic bladder and to avoid an maceration of the buttocks area and STEVE for 1 week or 2 in the fci. 4. With the progressive feeding and support with the feeding by nursing staff even at the fci. 5. Total time spent with the patient and his family 50% with the patient and total time is 1 hour. With extensive discussion with the family and the plan arrangement. Objective - Vital Signs Vital signs: Vital Signs Temp 97.7 F 09/03/23 15:05 Pulse 87 09/03/23 15:05 Resp 20 09/03/23 15:05 BP 157/77 09/03/23 15:05 Pulse Ox 95 09/03/23 15:05 FiO2 21 09/02/23 09:19 Intake & Output 09/02/23 09/03/23 09/03/23 18:59 06:59 18:59 Intake Total 264 78 7465 Output Total 750 480 550 Balance -480 -450 506 Weight 74 kg 74 kg Intake: IV 30 30 Invasive Line 1 10 20 Invasive Line 2 20 10 Intake, IV Titration 1056 Amount Mvi, Adult No.4 with Vit 1056 K 10 ml Trace (Conc-1Ml/ Dose) 1 ml Sodium Acetate 60 meq Calcium Gluconate 1 gm Magnesium Sulfate gm 1.5 gm Potassium Phosphate 6 mmol In Amino Acids 5 %/Dextrose 20 % 1,000 ml @ 48 mls/hr IV . Q22H [facility] Rx#:[id number] Oral 240 Output: Urine 750 480 550 Uretheral (Dow) 750 Other: Voiding Method Indwelling Catheter Indwelling Catheter Indwelling Catheter # Bowel Movements 1 1 - Labs CBC & Chem 7: 08/29/23 10:27 09/03/23 06:29 Labs: Abnormal Lab Results - Last 24 Hours (Table) 09/03/23 09/03/2309/02/24 Range/Units 00:18 06:29 12:02 Potassium 3.2 L (3.5-5.1) mmol/L Chloride 114 H (98-107) mmol/L BUN 36 H (9-20) mg/dL POC Glucose (mg/dL) 112 H 138 H (70-110) mg/dL Calcium 8.1 L (8.4-10.2) mg/dL
[2023-09-03] MEDS: LIOTHYRONINE SODIUM 5 MCG TAB PO SCH (16:47)
[2023-09-03 18:05] LABS: Glucose,Whole Blood 151 mg/dL (70-110)
[2023-09-04 00:01] LABS: Glucose,Whole Blood 106 mg/dL (70-110)
[2023-09-04 06:23] LABS: Glucose,Whole Blood 115 mg/dL (70-110)
[2023-09-04 08:31] LABS: ALT 60 U/L (4-49); AST 52 U/L (17-59); African American GFR (CKD) 75 (>60 ml/min/1.73 sqM); Albumin 2.3 g/dL (3.5-5.0); Alkaline Phosphatase 214 U/L (38-126); Anion Gap 7 mmol/L; Bilirubin, Delta 0.1 mg/dL (0.0-0.2); Bilirubin,Unconjugated 0.1 mg/dL (0.0-1.1); Blood Urea Nitrogen 34 mg/dL (9-20); Calcium 8.2 mg/dL (8.4-10.2); Carbon Dioxide 24 mmol/L (22-30); Chloride 111 mmol/L (98-107); Glucose 96 mg/dL (74-99); Magnesium 1.9 mg/dL (1.6-2.3); Non-African American GFR(CKD) 65 (>60 ml/min/1.73 sqM); Phosphorus 3.8 mg/dL (2.5-4.5); Potassium 3.3 mmol/L (3.5-5.1); Sodium 142 mmol/L (137-145); Total Bilirubin 0.2 mg/dL (0.2-1.3); Total Protein 5.6 g/dL (6.3-8.2)
[2023-09-04 09:03] LABS: Anisocytosis Slight; Basophils % (A) 0 %; Eosinophils # (A) 0.2 k/uL (0-0.7); Eosinophils % (A) 2 %; HGB 8.1 gm/dL (13.0-17.5); Hypochromasia Slight; Lymphocytes # (A) 1.7 k/uL (1.0-4.8); Lymphocytes % (A) 14 %; MCHC 31.1 g/dL (31.0-37.0); MCV 90.1 fL (80.0-100.0); Mean Platelet Volume 7.7; Monocytes % (A) 8 %; Neutrophils # (A) 9.2 k/uL (1.3-7.7); Neutrophils % (A) 75 %; Platelet Count 662 k/uL (150-450); RBC 2.89 m/uL (4.30-5.90); RDW 16.4 % (11.5-15.5); WBC 12.3 k/uL (3.8-10.6)
[2023-09-04] MEDS: POTASSIUM CHLORIDE 20 MEQ in WATER FOR INJECTION 1 100ML.BAG IVPB SCH (10:20)
[2023-09-04 10:45] LABS: T4, Free (Free Thyroxine) 1.28 ng/dL (0.78-2.19)
--- NOTE | 2023-09-04 11:00 | P.PN ---
Subjective Progress Note Date: 09/04/23 Patient is seen in follow-up for acute kidney injury on chronic kidney disease. Status post hemodialysis this admission. Now renal function has been stable without hemodialysis and dialysis catheter has been removed. Receiving TPN and IV fluids. On room air. Has been confused. Vital signs are stable. General: No acute distress. Resting in bed. HEENT: Head exam is unremarkable. LUNGS: No audible rhonchi or wheezes. HEART: Rate and Rhythm are regular. ABDOMEN: Nontender. EXTREMITITES: No edema. Objective - Vital Signs Vital signs: Vital Signs Temp 98.0 F 09/04/23 08:17 Pulse 88 09/04/23 08:44 Resp 20 09/04/23 08:17 BP 184/93 09/04/23 08:17 Pulse Ox 100 09/04/23 08:17 FiO2 21 09/02/23 09:19 Intake & Output 09/03/23 09/04/23 09/04/23 18:59 06:59 18:59 Intake Total 1056 975.6 Output Total 800 350 150 Balance 256 625.6 -150 Weight 74 kg 71 kg Intake: IV 30 Invasive Line 1 20 Invasive Line 2 10 Intake, IV Titration 1056 945.6 Amount Mvi, Adult No.4 with Vit 1056 945.6 K 10 ml Trace (Conc-1Ml/ Dose) 1 ml Sodium Acetate 60 meq Calcium Gluconate 1 gm Magnesium Sulfate gm 1.5 gm Potassium Phosphate 6 mmol In Amino Acids 5 %/Dextrose 20 % 1,000 ml @ 48 mls/hr IV . Q22H [facility] Rx#:[id number] Output: Urine 800 350 150 Uretheral (Dow) 150 Other: Voiding Method Indwelling Catheter Indwelling Catheter Indwelling Catheter - Labs CBC & Chem 7: 09/04/23 06:37 09/04/23 06:37 Labs: Abnormal Lab Results - Last 24 Hours (Table) 09/03/23 09/03/23 09/04/23 Range/Units 12:02 18:03 06:22 WBC (3.8-10.6) k/uL RBC (4.30-5.90) m/uL Hgb (13.0-17.5) gm/dL Hct (39.0-53.0) % RDW (11.5-15.5) % Plt Count (150-450) k/uL Neutrophils # (1.3-7.7) k/uL Potassium (3.5-5.1) mmol/L Chloride (98-107) mmol/L BUN (9-20) mg/dL POC Glucose (mg/dL) 138 H 151 H 115 H (70-110) mg/dL Calcium (8.4-10.2) mg/dL ALT (4-49) U/L Alkaline Phosphatase (38-126) U/L Total Protein (6.3-8.2) g/dL Albumin (3.5-5.0) g/dL TSH (0.465-4.680) mIU/L 09/04/23 09/04/23 Range/Units 06:37 06:37 WBC 12.3 H (3.8-10.6) k/uL RBC 2.89 L (4.30-5.90) m/uL Hgb 8.1 L (13.0-17.5) gm/dL Hct 26.0 L (39.0-53.0) % RDW 16.4 H (11.5-15.5) % Plt Count 662 H (150-450) k/uL Neutrophils # 9.2 H (1.3-7.7) k/uL Potassium 3.3 L (3.5-5.1) mmol/L Chloride 111 H (98-107) mmol/L BUN 34 H (9-20) mg/dL POC Glucose (mg/dL) (70-110) mg/dL Calcium 8.2 L (8.4-10.2) mg/dL ALT 60 H (4-49) U/L Alkaline Phosphatase 214 H (38-126) U/L Total Protein 5.6 L (6.3-8.2) g/dL Albumin 2.3 L (3.5-5.0) g/dL TSH 11.100 H (0.465-4.680) mIU/L Assessment and Plan Plan: Assessment: 1. Acute kidney injury secondary to hemodynamic ATN. No hydronephrosis noted on CAT scan. Started on hemodialysis August 10, 2023. Last dialysis August 12, 2023. Permacath removed August 19, 2023. Renal function improved. Creatinine 1.1. Nonoliguric. 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 Heme/onc following. 2. Chronic kidney disease stage IIIb with baseline creatinine 1.3-1.5 secondary to nephrosclerosis. 3. Partial small bowel obstruction. Receiving TPN. Surgery following. 4. Metabolic acidosis secondary to acute kidney injury and IV fluids. Better. 5. Atrial tachycardia status post Cardizem drip. On metoprolol. Cardiology following. 6. Anemia. Iron deficiency noted - s/p IV iron. On Aranesp. 7. Hyperkalemia secondary to acute kidney injury. Improved. Now hypokalemic. 8. Hypothyroidism maintained on IV liothyronine. Plan: Maintain TPN per surgery. Maintain normal saline. Avoid nephrotoxins. Continue to monitor renal function and urine output. Maintain Dow catheter. Preserved EF noted on echo. Replace electrolytes as needed.
[2023-09-04 11:59] LABS: Glucose,Whole Blood 138 mg/dL (70-110)
[2023-09-04] MEDS: LEVOTHYROXINE 75 MCG TAB PO SCH (12:29)
[2023-09-04] MEDS: METOPROLOL TARTRATE 50 MG TAB PO SCH (12:29)
--- NOTE | 2023-09-04 12:53 | P.PN ---
Subjective Progress Note Date: 09/04/23 Progress note Date of service 09/04/[address] Griffin Patient seen and evaluated [id number] Discussed with his nurse RN Portia. New event today we will be changing most of his IV medication to p.o. as he able to tolerate p.o. medication. Patient had agitation received Ativan early Aniket with the underlying encephalopathy and confusion. Patient waking up currently sleeping with the verbal stimuli and chest Trupp is awake. Able to eat few bites. Vital sign temperature 98.0 F axillary. Heart rate 8488. And respiratory rate 20/min normal nonlabored. Blood pressure 184/93 and the change of the Dow catheter today with a mean 123 However we will be changing his oral medication resuming the metoprolol tartrate 50 mg 3 times daily which will help the blood pressure and the heart rate started today. His antibiotic has been discontinued per infectious disease. Still the labetalol for blood pressure above 140 systolic as needed has been continued. The TPN and Intralipid will be continued today and tomorrow we will be discontinuing and hopefully we started him on oral supplementation as Ensure can or similar by nutritional support. Pantoprazole will be discontinued today as well with the underlying loose bowel. The IV still in place and he has supplementation with the potassium as his improved his renal function and increased urine output. Laboratories: WBC 12.3, hemoglobin 8.1 with a hematocrit 26. Chemistry sodium 142, potassium 3.3 has been supplemented with the protocol, chloride 111, carbon dioxide 24, his BUN 34, creatinine 1.05, POC glucose 138, and the lab was 96. AST 52, ALT 60, alk phos 214, total protein 5.6, albumin 2.3, and TSH 11.1 and free T41.28. Patient was underlying myxedema coma has been gradually improving and able to take medication p.o. and will start to upgrade his medication In association with the severe hypothyroidism and adrenal dysfunction and patient was supported with the hydrocortisone IV 100 mg and will be changing that tomorrow as well. Patient currently taking the levothyroxine IV and that changed to oral 150 mcg levothyroxine daily Patient started yesterday on oral liothyronine with the dose of 5 mcg every 8 hour until TSH improved subsequently will be discontinued.. For DVT prophylaxis patient has been on heparin subcu. No evidence of DVT. On the physical exam: Patient is conscious was underlying comfortable and sleeping as well as received Ativan for agitation Starting oral treatment Neck was supple no JVD no thyromegaly no lymphadenopathy urine output satisfactory Chest was normal breath sounds no wheezes or rhonchi's he had history of asthma and COPD. Heart regular sinus rhythm and hypertension" uncontrolled we hope with the switching to oral medication improving but also occasionally will be elevated with the agitation Abdomen soft positive bowel sounds no tenderness in 4 quadrants No BM today but he had BM last night. Extremities no edema positive pulses and he had a thrombotic stocking Neurologically dementia progressive with his prolonged illness but he is awake alert Assessment: 1. Patient is currently improving mental status however he had the dementia and confusion #2 need oral supplementation 3. Will plan for discontinuation TPN and Intralipid tomorrow 4. Antibiotic has been discontinued. Medication has been adjusted today to oral Detailed discussion happened yesterday at bedside with the family with prolonged conversation. With the underlying prolonged hospitalization due to his illness has been mention in my progress note every visit with the underlying #1 small bowel obstruction on admission on 325 Subsequent consultation with the surgeon Dr. Pinzon she decided to have the surgery on August 08, 2023 In between.. Time of admission and with surgery patient developed acute sinus tachycardia and shortness of breath seen by pulmonary and critical care as well as cardiology Patient transferred from [facility] to the [facility] with the critical progression and monitor patient developed acute renal failure with a creatinine more than 6 nephrology consult was requested and they observe the patient until decided that he need hemodialysis subsequently dialysis catheter in the right subclavian placed by Vascular surgeon Roddy Shannon and they proceed with the temporary dialysis started on 09 August ended on 12 August 2023 subsequently the renal function started to improve and continued to improve patient was started by nephrology on Darbepoetin 40 mcg subcu q. 7 days. Patient and his robotic laparoscopic lysis of adhesion by Dr. Pinzon on the August 08, 2023 followed by prolonged ileus with the pain and distention of the abdomen was assumed due to his chronic illness as well as with the spinal stenosis. Dr. Pinzon discussion. Patient developed in spite of monitoring the thyroid and increased from 50-75 patient developed severe hypothyroidism and myxedema coma and subsequently has been supplemented patient was prolonged n.p.o. due to ileus and small bowel obstruction Given IV levothyroxine and liothyronine which was not available in the hospital as emergency endocrine subsequently very able to obtain the medication and the small doses and be able to resume the treatment with some interruption due to deficiency of the medication and difficult to obtain the treatment IV, patient able to receive 10 mcg for his dose interrupted with 24-hour followed by obtaining another vial and treated with 5 mcg every 8 hour and subsequently pharmacy could not obtain any IV doses subsequently we able to as patient able to wake up and resume conscious and able to swallow to start oral medication of liothyronine added to the IV levothyroxine. Today we able to change medication to orally including the blood pressure medication and the liothyronine which is Cytomel. As patient recovering weakness and that has been very clear and noticed by his family, requested patient to be and marijuana correction and rehab and will be requesting from the onsite case manager and the social organization professor for the planning for the correction [facility] after we readjusted his medication to oral With the prognosis still guarded after the prolonged hospitalization and prolonged illness Objective - Vital Signs Vital signs: Vital Signs Temp 98.0 F 09/04/23 08:17 Pulse 88 09/04/23 11:50 Resp 20 09/04/23 11:00 BP 176/88 09/04/23 11:00 Pulse Ox 98 09/04/23 11:00 FiO2 21 09/02/23 09:19 Intake & Output 09/03/23 09/04/23 09/04/23 18:59 06:59 18:59 Intake Total 1056 975.6 Output Total 800 350 150 Balance 256 625.6 -150 Weight 74 kg 71 kg Intake: IV 30 Invasive Line 1 20 Invasive Line 2 10 Intake, IV Titration 1056 945.6 Amount Mvi, Adult No.4 with Vit 1056 945.6 K 10 ml Trace (Conc-1Ml/ Dose) 1 ml Sodium Acetate 60 meq Calcium Gluconate 1 gm Magnesium Sulfate gm 1.5 gm Potassium Phosphate 6 mmol In Amino Acids 5 %/Dextrose 20 % 1,000 ml @ 48 mls/hr IV . Q22H [facility] Rx#:[id number] Output: Urine 800 350 150 Uretheral (Dow) 150 Other: Voiding Method Indwelling Catheter Indwelling Catheter Indwelling Catheter - Labs CBC & Chem 7: 09/04/23 06:37 09/04/23 06:37 Labs: Abnormal Lab Results - Last 24 Hours (Table) 09/03/23 09/04/23 09/04/23 Range/Units 18:03 06:22 06:37 WBC 12.3 H (3.8-10.6) k/uL RBC 2.89 L (4.30-5.90) m/uL Hgb 8.1 L (13.0-17.5) gm/dL Hct 26.0 L (39.0-53.0) % RDW 16.4 H (11.5-15.5) % Plt Count 662 H (150-450) k/uL Neutrophils # 9.2 H (1.3-7.7) k/uL Potassium (3.5-5.1) mmol/L Chloride (98-107) mmol/L BUN (9-20) mg/dL POC Glucose (mg/dL) 151 H 115 H (70-110) mg/dL Calcium (8.4-10.2) mg/dL ALT (4-49) U/L Alkaline Phosphatase (38-126) U/L Total Protein (6.3-8.2) g/dL Albumin (3.5-5.0) g/dL TSH (0.465-4.680) mIU/L 09/04/23 09/04/23 Range/Units 06:37 11:57 WBC (3.8-10.6) k/uL RBC (4.30-5.90) m/uL Hgb (13.0-17.5) gm/dL Hct (39.0-53.0) % RDW (11.5-15.5) % Plt Count (150-450) k/uL Neutrophils # (1.3-7.7) k/uL Potassium 3.3 L (3.5-5.1) mmol/L Chloride 111 H (98-107) mmol/L BUN 34 H (9-20) mg/dL POC Glucose (mg/dL) 138 H (70-110) mg/dL Calcium 8.2 L (8.4-10.2) mg/dL ALT 60 H (4-49) U/L Alkaline Phosphatase 214 H (38-126) U/L Total Protein 5.6 L (6.3-8.2) g/dL Albumin 2.3 L (3.5-5.0) g/dL TSH 11.100 H (0.465-4.680) mIU/L
--- NOTE | 2023-09-04 15:13 | P.PN ---
Subjective Progress Note Date: 09/03/23 Principal diagnosis: Reason for follow-up is fever likely abdominal source Patient is a 83-year-old male with a past medical history significant for coronary disease COPD dementia hypertension hyperlipidemia reflux presenting to the hospital for evaluation of abdominal pain bloating has been diagnosed with the distal small bowel obstruction developing a fever concerning for possible abdominal sepsis prompting this consultation.Patient is status post robotic assisted laparoscopic lysis of adhesion extensive and decompressive enterostomy that was completed on 08/08/2023 On today's evaluation that is 09/03/2023, Patient is afebrile patient is currently on room air and breathing more comfortably patient more awake and alert denies any chest pain or cough no abdominal pain no vomiting or diarrhea reported by the sitter at the bedside did not have a bowel movement. Patient did have a creatinine 1.13 Objective - Vital Signs Vital signs: Vital Signs Temp 98.1 F 09/03/23 07:38 Pulse 80 09/03/23 09:33 Resp 16 09/03/23 07:38 BP 171/75 09/03/23 07:38 Pulse Ox 96 09/03/23 07:38 FiO2 21 09/02/23 09:19 Intake & Output 09/02/23 09/03/23 09/03/23 18:59 06:59 18:59 Intake Total 608 20 3796 Output Total 750 480 Balance -480 -450 1056 Weight 74 kg Intake: IV 30 30 Invasive Line 1 10 20 Invasive Line 2 20 10 Intake, IV Titration 1056 Amount Mvi, Adult No.4 with Vit 1056 K 10 ml Trace (Conc-1Ml/ Dose) 1 ml Sodium Acetate 60 meq Calcium Gluconate 1 gm Magnesium Sulfate gm 1.5 gm Potassium Phosphate 6 mmol In Amino Acids 5 %/Dextrose 20 % 1,000 ml @ 48 mls/hr IV . Q22H [facility] Rx#:[id number] Oral 240 Output: Urine 750 480 Uretheral (Dow) 750 Other: Voiding Method Indwelling Catheter Indwelling Catheter Indwelling Catheter # Bowel Movements 1 1 - Exam GENERAL DESCRIPTION: An elderly male up in the chair in no distress RESPIRATORY SYSTEM: Unlabored breathing , decreased breath sounds at bases HEART: S1 S2 regular rate and rhythm , ABDOMEN: Soft , no tenderness EXTREMITIES: No edema feet - Labs CBC & Chem 7: 09/04/23 06:37 09/04/23 06:37 Labs: Abnormal Lab Results - Last 24 Hours (Table) 09/03/23 09/03/23 Range/Units 00:18 06:29 Potassium 3.2 L (3.5-5.1) mmol/L Chloride 114 H (98-107) mmol/L BUN 36 H (9-20) mg/dL POC Glucose (mg/dL) 112 H (70-110) mg/dL Calcium 8.1 L (8.4-10.2) mg/dL Assessment and Plan (1) Fever Current Visit: Yes Status: Acute Code(s): R50.9 - FEVER, UNSPECIFIED SNOMED Code(s): 662249414 (2) Leukocytosis Current Visit: Yes Status: Acute Code(s): D72.829 - ELEVATED WHITE BLOOD CELL COUNT, UNSPECIFIED SNOMED Code(s): 080715500 (3) Small bowel obstruction Current Visit: Yes Status: Acute Code(s): K56.609 - UNSP INTESTNL OBST, UNSP TO PARTIAL VERSUS COMPLETE OBST SNOMED Code(s): 887032150 (4) Peritonitis Current Visit: Yes Status: Acute Code(s): K65.9 - PERITONITIS, UNSPECIFIED SNOMED Code(s): 68156713 Plan: 1patient with low-grade fever elevated white count and this patient presented to hospital with abdominal pain and bloating and has been diagnosed with the small bowel obstruction likely etiology for his low-grade fever and elevated white count, the patient is status post laparoscopic lysis of adhesion and enterostomy abdominal cultures obtained which are currently growing Enterococcus drug-resistant Enterobacter and Marybeth 2-patient is afebrile, patient white count has been normal 3-patient has received adequate antibiotic and antifungal therapy for his u nderlying peritonitis, patient antibiotics has been discontinued will monitor the patient closely off antibiotic Dictation was produced using [employer] dictation software. please excuse any grammatical, word or spelling errors. Time with Patient: Less than 30
--- NOTE | 2023-09-04 15:14 | P.PN ---
Subjective Progress Note Date: 09/04/23 Principal diagnosis: Reason for follow-up is fever likely abdominal source Patient is a 83-year-old male with a past medical history significant for coronary disease COPD dementia hypertension hyperlipidemia reflux presenting to the hospital for evaluation of abdominal pain bloating has been diagnosed with the distal small bowel obstruction developing a fever concerning for possible abdominal sepsis prompting this consultation.Patient is status post robotic assisted laparoscopic lysis of adhesion extensive and decompressive enterostomy that was completed on 08/08/2023 On today's evaluation that is 09/04/2023, patient has been afebrile, patient is breathing comfortably and is currently on room air, patient denies having any significant cough no chest pain shortness of breath, patient denies nausea vomiting or diarrhea and no abdominal pain. Patient Dow catheter was changed yesterday as it was at 1 month geraldo with reinsertion slight hematuria reported by the nursing staff Patient did have creatinine 1.05, white count is 12.3 Objective - Vital Signs Vital signs: Vital Signs Temp 98.0 F 09/04/23 08:17 Pulse 78 09/04/23 13:46 Resp 20 09/04/23 11:00 BP 176/88 09/04/23 11:00 Pulse Ox 98 09/04/23 11:00 FiO2 21 09/02/23 09:19 Intake & Output 09/03/23 09/04/23 09/04/23 18:59 06:59 18:59 Intake Total 1056 975.6 Output Total 800 350 150 Balance 256 625.6 -150 Weight 74 kg 71 kg Intake: IV 30 Invasive Line 1 20 Invasive Line 2 10 Intake, IV Titration 1056 945.6 Amount Mvi, Adult No.4 with Vit 1056 945.6 K 10 ml Trace (Conc-1Ml/ Dose) 1 ml Sodium Acetate 60 meq Calcium Gluconate 1 gm Magnesium Sulfate gm 1.5 gm Potassium Phosphate 6 mmol In Amino Acids 5 %/Dextrose 20 % 1,000 ml @ 48 mls/hr IV . Q22H [facility] Rx#:[id number] Output: Urine 800 350 150 Uretheral (Dow) 150 Other: Voiding Method Indwelling Catheter Indwelling Catheter Indwelling Catheter # Bowel Movements 1 - Exam GENERAL DESCRIPTION: An elderly male up in the chair in no distress RESPIRATORY SYSTEM: Unlabored breathing , decreased breath sounds at bases HEART: S1 S2 regular rate and rhythm , ABDOMEN: Soft , no tenderness EXTREMITIES: No edema feet - Labs CBC & Chem 7: 09/04/23 06:37 09/04/23 06:37 Labs: Abnormal Lab Results - Last 24 Hours (Table) 09/03/23 09/04/23 09/04/23 Range/Units 18:03 06:22 06:37 WBC 12.3 H (3.8-10.6) k/uL RBC 2.89 L (4.30-5.90) m/uL Hgb 8.1 L (13.0-17.5) gm/dL Hct 26.0 L (39.0-53.0) % RDW 16.4 H (11.5-15.5) % Plt Count 662 H (150-450) k/uL Neutrophils # 9.2 H (1.3-7.7) k/uL Potassium (3.5-5.1) mmol/L Chloride (98-107) mmol/L BUN (9-20) mg/dL POC Glucose (mg/dL) 151 H 115 H (70-110) mg/dL Calcium (8.4-10.2) mg/dL ALT (4-49) U/L Alkaline Phosphatase (38-126) U/L Total Protein (6.3-8.2) g/dL Albumin (3.5-5.0) g/dL TSH (0.465-4.680) mIU/L 09/04/23 09/04/23 09/04/23 Range/Units 06:37 11:57 13:04 WBC (3.8-10.6) k/uL RBC (4.30-5.90) m/uL Hgb (13.0-17.5) gm/dL Hct (39.0-53.0) % RDW (11.5-15.5) % Plt Count (150-450) k/uL Neutrophils # (1.3-7.7) k/uL Potassium 3.3 L (3.5-5.1) mmol/L Chloride 111 H (98-107) mmol/L BUN 34 H (9-20) mg/dL POC Glucose (mg/dL) 138 H (70-110) mg/dL Calcium 8.2 L (8.4-10.2) mg/dL ALT 60 H (4-49) U/L Alkaline Phosphatase 214 H (38-126) U/L Total Protein 5.6 L (6.3-8.2) g/dL Albumin 2.3 L (3.5-5.0) g/dL TSH 11.100 H 7.270 H (0.465-4.680) mIU/L Assessment and Plan (1) Fever Current Visit: Yes Status: Acute Code(s): R50.9 - FEVER, UNSPECIFIED SNOMED Code(s): 695502798 (2) Leukocytosis Current Visit: Yes Status: Acute Code(s): D72.829 - ELEVATED WHITE BLOOD C ELL COUNT, UNSPECIFIED SNOMED Code(s): 396505249 (3) Small bowel obstruction Current Visit: Yes Status: Acute Code(s): K56.609 - UNSP INTESTNL OBST, UNSP TO PARTIAL VERSUS COMPLETE OBST SNOMED Code(s): 464931741 (4) Peritonitis Current Visit: Yes Status: Acute Code(s): K65.9 - PERITONITIS, UNSPECIFIED SNOMED Code(s): 43961271 Plan: 1patient with low-grade fever elevated white count and this patient presented to hospital with abdominal pain and bloating and has been diagnosed with the s mall bowel obstruction likely etiology for his low-grade fever and elevated white count, the patient is status post laparoscopic lysis of adhesion and enterostomy abdominal cultures obtained which are currently growing Enterococcus drug-resistant Enterobacter and Marybeth 2--patient has received adequate antibiotic and antifungal therapy for his underlying peritonitis, patient meropenem and Eraxis were discontinued as of 09/02/2023 3-The patient is afebrile however noticed to have slight Worsening of the white count today at 12.3 could be related to his Dow catheter we will check a UA and culture and repeat a CBC with a.m. lab Dictation was produced using [employer] dictation software. please excuse any grammatical, word or spelling errors. Time with Patient: Less than 30
[2023-09-04 17:13] LABS: Appearance,Urine Clear (Clear); Bacteria,Urine Rare /hpf; Bilirubin,Urine Negative (Negative); Blood,Urine Moderate (Negative); Color,Urine Yellow; Glucose,Urine (UA) 1+ (Negative); Ketones,Urine Negative (Negative); Leukocyte Esterase,Urine Moderate (Negative); Mucus,Urine Rare /hpf; Nitrite,Urine Negative (Negative); Protein,Urine 1+ (Negative); RBC,Urine >182 /hpf (0-5); Specific Gravity,Urine 1.018 (1.001-1.035); Urobilinogen,Urine <2.0 mg/dL (<2.0); WBC,Urine 24 /hpf (0-5)
[2023-09-04 17:46] LABS: Glucose,Whole Blood 219 mg/dL (70-110)
[2023-09-04] MEDS: METOPROLOL TARTRATE 5 MG/5 ML VIAL IVP SCH (20:50)
--- NOTE | 2023-09-04 23:30 | XR ---
EXAM: XR Chest, 1 View CLINICAL HISTORY: increased oxygen demands TECHNIQUE: Frontal view of the chest. COMPARISON: August 26, 2023 FINDINGS: Lungs: Extensive underlying atelectasis and pulmonary edema. Pleural space: Marked increase in bilateral pleural effusions, larger on the left. No pneumothorax. Heart: Unremarkable. No cardiomegaly. Mediastinum: Unremarkable. Normal mediastinal contour. Bones/joints: No acute findings. Tubes, lines and devices: New left arm PICC line with the tip in the left brachiocephalic vein to the left of midline. IMPRESSION: Marked interval increase in bilateral pleural effusions as well as pulmonary edema.
[2023-09-04] MEDS ORDERED: HYDROmorphone 0.5 MG/0.5 ML SYRINGE IVP PRN (23:33)
[2023-09-04] MEDS: LORazepam 2 MG/ML INJ IV PRN (23:46)
[2023-09-04] MEDS: SCOPOLAMINE 1 MG/72 HR PATCH TRANSDERM SCH (23:46)
[2023-09-04] MEDS: LABETALOL 5 MG/ML VIAL MDV IV PRN (23:52)
[2023-09-04 23:58] LABS: Glucose,Whole Blood 183 mg/dL (70-110)
[2023-09-05] MEDS ORDERED: ATROPINE OPHTH SOLN 1% 5ML BTL SUBLINGUAL PRN
[2023-09-05 01:25] VITALS: BP 179/96; PULSE 95; RESP 28; TEMP 97.6
[2023-09-05] MEDS ORDERED: [UNRECOGNIZED DRUG - REMARK] IV SCH (04:00)
--- NOTE | 2023-09-05 10:16 | P.DS ---
Providers Date of admission: 08/01/23 06:57 Expected date of discharge: 09/05/23 ( on 09/05/2023 12: 28 a.m.) Attending physician: Kevin Griffin Consults: 08/04/23 08:06 Consult Physician Routine Consulting Provider: Jw Gaspar Consult Reason/Comments: Right lower lobe infiltrate Do you want consulting provider notified?: Yes 08/04/23 16:56 Consult Physician Stat Consulting Provider: Liberty Cervantes Consult Reason/Comments: Acute kidney injury Do you want consulting provider notified?: Yes 08/05/23 09:35 Consult Physician Stat Consulting Provider: Tripp Simmons Consult Reason/Comments: Small bowel obstruction and pending infection Do you want consulting provider notified?: Yes 08/10/23 12:42 Consult Physician Stat Consulting Provider: Oleg Shannon Consult Reason/Comments: dialysis cath Do you want consulting provider notified?: Yes 08/15/23 12:03 Consult Physician Routine Consulting Provider: Dillan De La Torre Consult Reason/Comments: r/o MGUS/MM Do you want consulting provider notified?: Yes 08/26/23 09:16 Consult Physician Routine Consulting Provider: Arnol Zamarripa Consult Reason/Comments: AMS, eval and treat Do you want consulting provider notified?: Yes 09/04/23 17:55 Consult Physician Urgent Consulting Provider: West Bautista Consult Reason/Comments: Increased oxygen demand, labored breathing Do you want consulting provider notified?: Yes Primary care physician: Kevin Griffin Admission date 08/01/2023 Discharge date 09/05/2023 Disposition: on 09/05/2023, 12: 20 8 AM after midnight Comfort care. Final diagnosis 1. #1 failure to thrive 2. Small bowel obstruction 3. Status post robotic laparoscopic surgery by Dr. Pinzon on August 08, 2023 4. Prolonged ileus post operative 5. Intra-abdominal peritonitis with sepsis 6. Acute respiratory hypoxic failure 7. Acute sinus tachycardia with preserved ejection fraction. 8. Hyperkalemia, acute kidney injury. 9. Temporary hemodialysis started on 09 August ended on 11 August with the gradual resolution of acute renal failure 10. Placement of dialysis catheter on the right subclavian by Dr. Shannon vascular surgeon 11. PICC line and midline placed by Dr. Dow vascular surgeon 12. Prolonged starvation with hypoalbuminemia and proteinemia and low prealbumin 13. Hyperalimentation with the TPN, Intralipid ordered by Dr. Pinzon for nutritional support 14. Severe hypothyroidism not responding with oral levothyroxine. 15 myxedema coma treated with the IV levothyroxine and IV liothyronine. 16. Persistent hypertension with hypertensive heart disease with preserved ejection fraction. 17. Metabolic encephalopathy seen by neurologist with the EEG documented. 18. Acute deterioration and family comfort care request 19. Patient . 20. Dysphagia associated with multifactorial metabolic encephalopathy and myxedema coma. Patient started to wake up after the treatment however with the underlying multiple consulted As patient worsening condition family notified and comfort requested and patient Patient Condition at Discharge: Fair Plan - Discharge Summary Discharge Rx Participant: No New Discharge Prescriptions: No Action Montelukast [Singulair] 10 mg PO DAILY Metoprolol Tartrate 25 mg PO BID Theophylline 12 Hour [Silvio-Dur] 300 mg PO BID Levothyroxine Sodium [Synthroid] 50 mcg PO DAILY Atorvastatin [Lipitor] 80 mg PO HS Famotidine [Pepcid] 20 mg PO BID Losartan [Cozaar] 50 mg PO DAILY Ipratropium-Albuterol Nebulize [Duoneb 0.5 mg-3 mg/3 ml Soln] 3 ml INHALATION RT-QID #120 each Aspirin EC [Ecotrin Low Dose] 81 mg PO DAILY Triamcinolone 0.1% Cream [Kenalog 0.1% Cream] 1 applicatio TOPICAL BID Memantine [Namenda] 10 mg PO BID Donepezil [Aricept] 10 mg PO HS Budesonide-Formot 160-4.5 Mcg [Symbicort 160-4.5 Mcg Inhaler] 2 puff INHALATION RT-BID #1 each Albuterol Sulfate [Albuterol Sulfate Hfa] 2 puff INHALATION RT-QID PRN PRN Reason: Shortness Of Breath Discharge Medication List Metoprolol Tartrate 25 mg PO BID 05/27/17 [History] Montelukast [Singulair] 10 mg PO DAILY 05/27/17 [History] Theophylline 12 Hour [Silvio-Dur] 300 mg PO BID 05/27/17 [History] Atorvastatin [Lipitor] 80 mg PO HS 07/16/20 [History] Famotidine [Pepcid] 20 mg PO BID 11/22/19 [History] Levothyroxine Sodium [Synthroid] 50 mcg PO DAILY 11/22/19 [History] Donepezil [Aricept] 10 mg PO HS 03/15/23 [History] Losartan [Cozaar] 50 mg PO DAILY 03/15/23 [History] Memantine [Namenda] 10 mg PO BID 03/15/23 [History] Budesonide-Formot 160-4.5 Mcg [Symbicort 160-4.5 Mcg Inhaler] 2 puff INHALATION RT-BID #1 each 03/19/23 [Rx] Ipratropium-Albuterol Nebulize [Duoneb 0.5 mg-3 mg/3 ml Soln] 3 ml INHALATION RT-QID #120 each 03/19/23 [Rx] Albuterol Sulfate [Albuterol Sulfate Hfa] 2 puff INHALATION RT-QID PRN 04/08/23 [History] Aspirin EC [Ecotrin Low Dose] 81 mg PO DAILY 08/01/23 [History] Triamcinolone 0.1% Cream [Kenalog 0.1% Cream] 1 applicatio TOPICAL BID 08/01/23 [History] Follow up Appointment(s)/Referral(s): Dillan De La Torre [STAFF PHYSICIAN] - 6 Weeks [facility]- Enedina VÁSQUEZ [NON-STAFF] - 08/16/23 11:25 am Kevin Griffin MD [Primary Care Provider] - 1-2 days Discharge Disposition: Care Plan Goals (MU): Comfort care and Expiration date 09/05/2023 Time after midnight 12:28 AM Plan of Treatment: on 09/05/2023 at 12:28 AM, after midnight - Preliminary Cause of Preliminary Cause of : Failure to thrive, small bowel obstruction, metabolic encephalopathy, sepsi
--- NOTE | 2023-09-06 19:55 | CDI ---
Documentation Clarification Form Date: 09/06/2023 07:18:44 PM From: Joann Dupont Phone: Admit Date: 08/01/2023 06:57:00 AM Patient Name: Praveen Parker Visit Number: [id number] Discharge Date: 09/05/2023 12:28:00 AM ATTENTION: The Clinical Documentation Specialists (CDI) and [facility] Coding Staff appreciate your assistance in clarifying documentation. Please respond to the clarification below the line at the bottom and electronically sign. The CDI & [facility] Coding staff will review the response and follow-up if needed. Please note: Queries are made part of the Legal Health Record. If you have any questions, please contact the author of this message via ITS. Dr. Kevin Griffin Hypotension is documented in the OP Note 08/05 and Progress Notes 08/13 and 08/25. Additional clarification regarding this diagnosis is requested. History/Risk Factors: 83yo M, metabolic/septic encephalopathy, dementia, SBO sepsis w Enterococcus faecalis and Enterobacter aerogenes, ATN on CKD IIIB, hypothyroid, Hyperkalemia, hypothyroidism Clinical Indicators: Blood Pressure: 07/31 163/48 151/72 161/67 08/04 112/60 08/05 114/57 Treatment: IV fluid hydration Can the hypotension be further specified? [ ] Intra-operative Hypotension [ ] Septic shock [ ] Hypotension is not clinically significant [ ] Other Condition, please specify [ x ] Unable to determine (Template Last Revised: July 2020) MTDD
== END 2023-09-05 00:28 | disposition expired | DRG 335 ==
LOC: EC 05:13 → 5NMEDONC 06:57 → 3SCARD 08-04 13:44
PROVIDERS: ADMIT Internal Medicine; ATTEND Internal Medicine
PROC: 0DNU4ZZ Release Omentum, Percutaneous Endoscopic Approach (ICD-10-PCS; 2023-08-08)
PROC: 0DNW4ZZ Release Peritoneum, Percutaneous Endoscopic Approach (ICD-10-PCS; 2023-08-08)
PROC: 0D9H8ZZ Drainage of Cecum, Via Natural or Artificial Opening Endoscopic (ICD-10-PCS; 2023-08-08)
PROC: 0D9670Z Drainage of Stomach with Drainage Device, Via Natural or Artificial Opening (ICD-10-PCS; 2023-08-08)
PROC: 0DNN4ZZ Release Sigmoid Colon, Percutaneous Endoscopic Approach (ICD-10-PCS; principal; 2023-08-08 09:40)
PROC: 02HV33Z Insertion of Infusion Device into Superior Vena Cava, Percutaneous Approach (ICD-10-PCS; 2023-08-09)
PROC: 02HV33Z Insertion of Infusion Device into Superior Vena Cava, Percutaneous Approach (ICD-10-PCS; 2023-08-10)
PROC: 5A1D70Z Performance of Urinary Filtration, Intermittent, Less than 6 Hours Per Day (ICD-10-PCS; 2023-08-10)
PROC: 05HC33Z Insertion of Infusion Device into Left Basilic Vein, Percutaneous Approach (ICD-10-PCS; 2023-08-19)
PROC: 02PYX3Z Removal of Infusion Device from Great Vessel, External Approach (ICD-10-PCS; 2023-08-22)
PROC: 02HV33Z Insertion of Infusion Device into Superior Vena Cava, Percutaneous Approach (ICD-10-PCS; 2023-09-01)
PROC: 3E0436Z Introduction of Nutritional Substance into Central Vein, Percutaneous Approach (ICD-10-PCS; 2023-09-01)
DX: K56.51 Intestinal adhesions [bands], with partial obstruction (principal); A41.81 Sepsis due to Enterococcus; N17.0 Acute kidney failure with tubular necrosis; J96.01 Acute respiratory failure with hypoxia; E03.5 Myxedema coma; K65.1 Peritoneal abscess; G93.41 Metabolic encephalopathy; I13.0 Hypertensive heart and chronic kidney disease with heart failure and stage 1 through stage 4 chronic kidney disease, or unspecified chronic kidney disease; I50.32 Chronic diastolic (congestive) heart failure; F03.B4 Unspecified dementia, moderate, with anxiety; J44.1 Chronic obstructive pulmonary disease with (acute) exacerbation; B37.89 Other sites of candidiasis; E87.20 Acidosis, unspecified; Z16.24 Resistance to multiple antibiotics; I47.19 Other supraventricular tachycardia; K56.2 Volvulus; K56.0 Paralytic ileus; N18.32 Chronic kidney disease, stage 3b; E27.9 Disorder of adrenal gland, unspecified; E77.8 Other disorders of glycoprotein metabolism; J84.10 Pulmonary fibrosis, unspecified; Z51.5 Encounter for palliative care; Z66 Do not resuscitate; D63.8 Anemia in other chronic diseases classified elsewhere; T17.928A Food in respiratory tract, part unspecified causing other injury, initial encounter; I95.9 Hypotension, unspecified; J45.20 Mild intermittent asthma, uncomplicated; J44.89 Other specified chronic obstructive pulmonary disease; D50.9 Iron deficiency anemia, unspecified; I25.10 Atherosclerotic heart disease of native coronary artery without angina pectoris; E78.5 Hyperlipidemia, unspecified; K57.30 Diverticulosis of large intestine without perforation or abscess without bleeding; K40.20 Bilateral inguinal hernia, without obstruction or gangrene, not specified as recurrent; K57.10 Diverticulosis of small intestine without perforation or abscess without bleeding; H02.402 Unspecified ptosis of left eyelid; K21.9 Gastro-esophageal reflux disease without esophagitis; K52.89 Other specified noninfective gastroenteritis and colitis; Z60.2 Problems related to living alone; E07.9 Disorder of thyroid, unspecified; M13.80 Other specified arthritis, unspecified site; M47.817 Spondylosis without myelopathy or radiculopathy, lumbosacral region; E87.5 Hyperkalemia; E86.0 Dehydration; E87.6 Hypokalemia; G89.29 Other chronic pain; I45.19 Other right bundle-branch block; D47.2 Monoclonal gammopathy; T46.1X5A Adverse effect of calcium-channel blockers, initial encounter; M48.061 Spinal stenosis, lumbar region without neurogenic claudication; M51.26 Other intervertebral disc displacement, lumbar region; M51.36 Other intervertebral disc degeneration, lumbar region; N48.89 Other specified disorders of penis; T73.0XXA Starvation, initial encounter; E63.9 Nutritional deficiency, unspecified; E16.2 Hypoglycemia, unspecified; R62.7 Adult failure to thrive; R29.810 Facial weakness; B95.2 Enterococcus as the cause of diseases classified elsewhere; R26.2 Difficulty in walking, not elsewhere classified; Z79.890 Hormone replacement therapy; Z79.82 Long term (current) use of aspirin; Z79.51 Long term (current) use of inhaled steroids; Z88.1 Allergy status to other antibiotic agents; Z79.899 Other long term (current) drug therapy; Z90.49 Acquired absence of other specified parts of digestive tract; Z88.2 Allergy status to sulfonamides; Z88.8 Allergy status to other drugs, medicaments and biological substances; Z85.46 Personal history of malignant neoplasm of prostate; Z95.5 Presence of coronary angioplasty implant and graft
CPT/HCPCS: 36410; 36415; 36558; 36573; 70450; 71045; 71046; 74018; 74019; 74176; 74250; 76937; 77001; 80048; 80053; 80076; 81001; 82150; 82330; 82533; 82728; 83516; 83540; 83550; 83605; 83690; 83735; 83883; 84100; 84132; 84134; 84145; 84165; 84439; 84443; 84478; 84480; 85025; 85045; 85610; 85730; 86038; 86140; 86225; 86255; 86334; 86335; 86704; 86706; 86803; 87040; 87070; 87075; 87077; 87086; 87186; 87205; 87340; 90935; 93005; 93306; 94640; 94760; 95816; 96361; 96365; 96375; 96376; 99285